=== PATIENT | female | born 1980 | race Caucasian/White ===

== ENCOUNTER → 2020-10-09 13:03 | Outpatient (BNVA) | payer MEDICARE, MEDICAID, SELFPAY | PROVIDERS: PCP Internal Medicine; Visit Provider Internal Medicine Gastroenterology | DX: D47.09 Other mast cell neoplasms of uncertain behavior (principal); R20.0 Anesthesia of skin; R13.10 Dysphagia, unspecified; R19.7 Diarrhea, unspecified; D49.0 Neoplasm of unspecified behavior of digestive system | CPT/HCPCS: Q3014 ==

== ENCOUNTER → 2021-02-11 10:12 | Outpatient (BNVA) | payer MEDICARE, MEDICAID, SELFPAY | PROVIDERS: PCP Internal Medicine; Visit Provider Internal Medicine Gastroenterology ==

== ENCOUNTER → 2021-09-22 11:58 | Outpatient (BNVA) | payer MEDICARE, MEDICAID, SELFPAY | PROVIDERS: PCP Internal Medicine; Visit Provider Internal Medicine Gastroenterology ==

== ENCOUNTER 2023-06-04 11:51 | Outpatient (AMB) | payer MEDICARE, MEDICAID, SELFPAY ==
--- NOTE | 2023-06-04 12:06 | MHC.OFFVIS ---
Intake Vital Signs 06/04/23 12:07 Height 5 ft 7 in Weight 187 lb BMI 29.3 BP 121/90 H Blood Pressure Location Lt brachial Position Sitting Pulse 77 Intake Visit Reasons: Flare Up Intake Note: Patient follow up for Flare up Patient cc: flare up, abdominal pain, acid reflex, daily diarrhea. Patient was admitted at the hospital. 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 Accompanied by: Self / Same As Patient Allergies droperidol Allergy (Severe, Verified 06/04/23 11:59) Confusion cefprozil [From CEFZIL] Allergy (Intermediate, Verified 06/04/23 11:59) HIVES escitalopram [From LEXAPRO] Allergy (Intermediate, Verified 06/04/23 11:59) UNKNOWN prochlorperazine [From COMPAZINE] Allergy (Intermediate, Verified 06/04/23 11:59) HIVES propranolol [PROPRANOLOL] Allergy (Intermediate, Verified 06/04/23 11:59) RASH sertraline [From ZOLOFT] Allergy (Intermediate, Verified 06/04/23 11:59) NAUSEA & VOMITING haloperidol [From Haldol] Allergy (Mild, Verified 06/04/23 11:59) suicidal metoclopramide [From REGLAN] Adverse Reaction (Intermediate, Verified 06/04/23 11:59) AGITATION phenelzine [From NARDIL] Adverse Reaction (Intermediate, Verified 06/04/23 11:59) NAUSEA & VOMITING HPI Flare Up HPI Details 42 y/o f w/ back pain, appendectomy, hysterectomy, Niessen fundoplication 2011, marilyn disease, cholecystectomy, depression, endometrioma being see for f/u RECAP:from prior notes and visits [facility] for multiple issues, please see my scanned notes in ecw EGD/colonoscopy10/2015- erosive gastritis, mild ileal inflammation MRCP: 11/2015- normal, small IPMN doppler u/s 11/2015- normal ERCP w/ sphincterotomy for possible SOD 07/2016 EGD/colonoscopy 2016- tubular adenoma, chemical gastritis, normal duodenum MRe: normal small bowel, ovarian remnant syndrome, she had raised urine prostaglandins u/s 01/2019- 9 mm CBD, liver cyst, nothing acute GES repeated- 02/2019- normal She had an admission to [place] 12/2019, with hematemesis and vomiting, diarrhea, covid neg, had EGD and colonoscopy--noted to have gastritis, colon looked nml Other admissions to [place] hospitals and [facility] this year, [facility] latest admission over the Summer INTERIM: she was just d/c ed from [facility] with nausea, vomiting, low K she had endoscopy with intestinal metapalsia? and she was told she needed gastric emptying she had low K and this was replenished she has constipation, last moved 10 days ago she is going to be seeing an EP speicalist for her heart she was unable to complete GES during her admission she has bad nausea, taking zofran, benadryl combo for nausea, which helps to some extent, she is also taking motegrity 2 mg she still gets hives, not taking cromolyn but still on singulair and famotidine EXAM: GENERAL: The patient is well developed and nontoxic. VITAL SIGNS:see workflow HEENT: Nonicteric sclerae, PERRLA, EOMI. Oropharynx clear. Moist mucous membranes. Conjunctivae appear well perfused. No thyroid mass. CHEST: Chest wall is nontender. HEART: Regular rate and rhythm without murmurs. LUNGS: Clear to auscultation bilaterally. ABDOMEN: Soft, positive bowel sounds, nontender, no organomegaly.no flank tenderness SKIN: No rash, no excessive bruising, petechiae, or purpura. NEUROLOGIC: Cranial nerves II-XII intact without motor/sensory deficit. Assessments 1. Non-intractable cyclical vomiting with nausea and diarrhea 2. Chronic GERD - 3. ?urticaria or nummular/discoid eczema 4. 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 PFSH Surgical History History of kidney surgery H/O colonoscopy H/O endoscopy Family History Mother HTN (hypertension) Heart disease Kidney disease Cancer Father HTN (hypertension) Maternal Grandfather Cancer Kidney disease Diabetes Liver disease Paternal Grandfather Cancer Paternal Grandmother Colon cancer Social History Household Members: Significant Other and Children Alcohol intake: current Alcohol intake frequency: holidays/special occasions only Cigarettes Per Day: 10 Assessment & Plan Assessment & Plan (1) Diarrhea: Code(s): R19.7 - Diarrhea, unspecified (2) Dysphagia: Code(s): R13.10 - Dysphagia, unspecified (3) Mast cell disorder: Code(s): D4. - Other mast cell neoplasms of uncertain behavior (4) Malnutrition: Code(s): E46 - Unspecified protein-calorie malnutrition Orders: Orders XR KUB Today D4. - Other mast cell neoplasms of uncertain behavior, E46 - Unspecified protein-calorie malnutrition, R13.10 - Dysphagia, unspecified, R19.7 - Diarrhea, unspecified Vitamin B12 and Folate Today D4. - Other mast cell neoplasms of uncertain behavior, E46 - Unspecified protein-calorie malnutrition, R13.10 - Dysphagia, unspecified, R19.7 - Diarrhea, unspecified Vitamin B3 (Niacin) Today D47. - Other mast cell neoplasms of uncertain behavior, E46 - Unspecified protein-calorie malnutrition, R13.10 - Dysphagia, unspecified, R19.7 - Diarrhea, unspecified Vitamin B5 (Pantothenic Acid) Today D47. - Other mast cell neoplasms of uncertain behavior, E46 - Unspecified protein-calorie malnutrition, R13.10 - Dysphagia, unspecified, R19.7 - Diarrhea, unspecified Vitamin B6 Today D47. - Other mast cell neoplasms of uncertain behavior, E46 - Unspecified protein-calorie malnutrition, R13.10 - Dysphagia, unspecified, R19.7 - Diarrhea, unspecified Vitamin C Today D47. - Other mast cell neoplasms of uncertain behavior, E46 - Unspecified protein-calorie malnutrition, R13.10 - Dysphagia, unspecified, R19.7 - Diarrhea, unspecified Vitamin D 25-OH Total Today D47. - Other mast cell neoplasms of uncertain behavior, E46 - Unspecified protein-calorie malnutrition, R13.10 - Dysphagia, unspecified, R19.7 - Diarrhea, unspecified Zinc Today D47. - Other mast cell neoplasms of uncertain behavior, E46 - Unspecified protein-calorie malnutrition, R13.10 - Dysphagia, unspecified, R19.7 - Diarrhea, unspecified Magnesium Today D47. - Other mast cell neoplasms of uncertain behavior, E46 - Unspecified protein-calorie malnutrition, R13.10 - Dysphagia, unspecified, R19.7 - Diarrhea, unspecified Ferritin Today . - Other mast cell neoplasms of uncertain behavior, E46 - Unspecified protein-calorie malnutrition, R13.10 - Dysphagia, unspecified, R19.7 - Diarrhea, unspecified Phosphorus Today . - Other mast cell neoplasms of uncertain behavior, E46 - Unspecified protein-calorie malnutrition, R13.10 - Dysphagia, unspecified, R19.7 - Diarrhea, unspecified Vitamin A Today - Other mast cell neoplasms of uncertain behavior, E46 - Unspecified protein-calorie malnutrition, R13.10 - Dysphagia, unspecified, R19.7 - Diarrhea, unspecified Vitamin B1 Today - Other mast cell neoplasms of uncertain behavior, E46 - Unspecified protein-calorie malnutrition, R13.10 - Dysphagia, unspecified, R19.7 - Diarrhea, unspecified Vitamin E Today - Other mast cell neoplasms of uncertain behavior, E46 - Unspecified protein-calorie malnutrition, R13.10 - Dysphagia, unspecified, R19.7 - Diarrhea, unspecified Vitamin K1 Today - Other mast cell neoplasms of uncertain behavior, E46 - Unspecified protein-calorie malnutrition, R13.10 - Dysphagia, unspecified, R19.7 - Diarrhea, unspecified Calcium, Ionized Today - Other mast cell neoplasms of uncertain behavior, E46 - Unspecified protein-calorie malnutrition, E83.52 - Hypercalcemia, R13.10 - Dysphagia, unspecified, R19.7 - Diarrhea, unspecified Complete Blood Count Auto Diff Today - Other mast cell neoplasms of uncertain behavior, E46 - Unspecified protein-calorie malnutrition, R13.10 - Dysphagia, unspecified, R19.7 - Diarrhea, unspecified Comprehensive Met. Panel Today - Other mast cell neoplasms of uncertain behavior, E46 - Unspecified protein-calorie malnutrition, K75.81 - Nonalcoholic steatohepatitis (RIVERA), R13.10 - Dysphagia, unspecified, R19.7 - Diarrhea, unspecified Creatine Kinase Total Today - Other mast cell neoplasms of uncertain behavior, E46 - Unspecified protein-calorie malnutrition, R13.10 - Dysphagia, unspecified, R19.7 - Diarrhea, unspecified Erythrocyte Sedimentation Rate Today D47.09 - Other mast cell neoplasms of uncertain behavior, E46 - Unspecified protein-calorie malnutrition, R13.10 - Dysphagia, unspecified, R19.7 - Diarrhea, unspecified Histamine Plasma Today D47.09 - Other mast cell neoplasms of uncertain behavior, E46 - Unspecified protein-calorie malnutrition, R13.10 - Dysphagia, unspecified, R19.7 - Diarrhea, unspecified Medications: New cromolyn 200 mg (10 mL) PO QID 30 days 1,200 mL 3RF Coding Level of Care Code Est Pt Level 3 (60555) Diagnoses Diarrhea R19.7 Dysphagia R13.10 Mast cell disorder D47.09 Malnutrition E46
[2023-06-04 12:07] VITALS: BP 121/90; PULSE 77; BMI 29.3
== END 2023-06-04 12:38 | disposition home or self-care (01) ==
PROVIDERS: PCP Internal Medicine; Visit Provider Internal Medicine Gastroenterology
DX: R19.7 Diarrhea, unspecified (principal); R13.10 Dysphagia, unspecified; D47.09 Other mast cell neoplasms of uncertain behavior; E46 Unspecified protein-calorie malnutrition
CPT/HCPCS: 99213

== ENCOUNTER 2023-06-04 11:51 | Outpatient (REF) | payer MEDICARE, MEDICAID, SELFPAY ==
[2023-06-04 13:20] LABS: MANUAL DIFF FLAG NO
[2023-06-04 13:46] LABS: Basophils Absolute Auto 0.1 X10*3/uL (0.0-0.2); Basophils Percent Auto 0.6 % (0-2); Eosinophils Absolute Auto 0.2 X10*3/uL (0.0-0.4); Eosinophils Percent Auto 1.6 % (0-4); Hematocrit 44.2 % (37.0-47.0); Hemoglobin 14.8 g/dl (12.0-16.0); Imm Gran Abs Auto 0.08 X10*3/uL (0.00-0.03); Imm Gran Pct Auto 0.7 % (0.0-0.4); Lymphocytes Percent Auto 26.2 % (20-40); Mean Corpuscular HGB Conc 33.5 g/dl (31.0-35.0); Mean Corpuscular Hemoglobin 30.4 pg (27.0-33.0); Mean Corpuscular Volume 90.8 fL (80.0-98.0); Mean Platelet Volume 10.2 fL (9.4-12.3); Monocytes Absolute Auto 0.8 X10*3/uL (0.1-1.2); Monocytes Percent Auto 6.9 % (2-11); Neutrophils Absolute Auto 7.3 x10*3/uL (2.0-8.3); Platelet Count 365 X10*3/uL (160-400); Red Blood Count 4.87 X10*6/uL (4.20-5.50); Red Cell Distribution Width 14.4 % (11.0-16.0); White Blood Count 11.4 X10*3/uL (4.8-10.8)
[2023-06-04 14:26] LABS: Erythrocyte Sedimentation Rate 8 MM/HR (0-20)
[2023-06-04 14:52] LABS: Vitamin B12 580 pg/mL (200-900)
[2023-06-04 15:32] LABS: Alanine Aminotransferase 26 U/L (0-31); Albumin Level 4.3 g/dL (3.5-5.0); Alkaline Phosphatase 108 U/L (39-117); Anion Gap 12 (12-20); Aspartate Amino Transferase 17 U/L (5-31); Bilirubin Total 0.4 mg/dL (0.0-1.0); Blood Urea Nitrogen 14 mg/dL (9-16); Calcium 9.7 mg/dL (8.4-10.2); Carbon Dioxide 22 mmol/L (22-29); Chloride 110 mmol/L (96-108); Estimated Glomerular Filt Rate > 60; Glucose Random 91 mg/dL (60-115); Magnesium 2.3 mg/dL (1.6-2.6); Potassium 4.5 mmol/L (3.3-5.1); Sodium 139 mmol/L (135-145); Total Protein 7.4 g/dL (6.5-8.0)
[2023-06-04 15:38] LABS: Ferritin 58 ng/mL (10-250); Vitamin D 25-OH Total 33.3 ng/mL (>30)
[2023-06-06 23:28] LABS: Calcium, Ionized 5.4 mg/dL (4.7-5.5)
[2023-06-08 14:09] LABS: Zinc 71 mcg/dL (60-130)
[2023-06-09 21:08] LABS: Vitamin K1 187 pg/mL (130-1500)
[2023-06-09 21:13] LABS: Beta-Gamma Tocopherol 1.2 mg/L (<=4.3)
[2023-06-10 13:38] LABS: Vitamin B6 8.6 ng/mL (2.1-21.7)
[2023-06-10 16:28] LABS: Histamine Plasma <1.5 ng/mL (< OR = 1.8)
[2023-06-10 18:44] LABS: Vitamin A 66 mcg/dL (38-98)
[2023-06-11 19:33] LABS: Vitamin C 0.1 mg/dL (0.3-2.7)
[2023-06-12 15:18] LABS: Vitamin B1 13 nmol/L (8-30)
[2023-06-13 23:59] LABS: Nicotinamide 21 ng/mL; Vit B3 - Nicotinic Acid <20 ng/mL; Vitamin B5 (Pantothenic Acid) <40 ng/mL (<275)
== END 2023-06-04 11:52 | disposition home or self-care (01) ==
LOC: HO.LAB 11:51
PROVIDERS: PCP Internal Medicine; Visit Provider Internal Medicine Gastroenterology
DX: E83.52 Hypercalcemia (principal); K75.81 Nonalcoholic steatohepatitis (NASH); K21.9 Gastro-esophageal reflux disease without esophagitis; R19.7 Diarrhea, unspecified; R10.9 Unspecified abdominal pain; R13.10 Dysphagia, unspecified; D47.09 Other mast cell neoplasms of uncertain behavior; E46 Unspecified protein-calorie malnutrition
CPT/HCPCS: 36415; 80053; 82180; 82306; 82330; 82550; 82607; 82728; 82746; 83088; 83735; 84100; 84207; 84425; 84446; 84590; 84591; 84597; 84630; 85025; 85652; 99212

== ENCOUNTER 2023-07-26 10:44 | Outpatient (AMB) | payer MEDICARE, MEDICAID, SELFPAY ==
--- NOTE | 2023-07-26 10:49 | A.OFFVIS_ITS ---
Intake Vital Signs 07/26/23 10:51 Height 5 ft 7 in Weight 218 lb BMI 34.1 BP 115/66 Blood Pressure Location Lt brachial Position Sitting Pulse 68 Intake Visit Reasons: 8 week follow up Intake Note: Mary Alice presents as a 8 week follow up. CC: She states that her hair is coming out in clumps and she is unsure why she has gained weight. She was 187 now she is 218. Her stools are pale and she does not have many BMs. either she has constipation or diarrhea. Science Liaison Required: No Allergies droperidol Allergy (Severe, Verified 07/26/23 10:52) Confusion cefprozil [From CEFZIL] Allergy (Intermediate, Verified 07/26/23 10:52) HIVES escitalopram [From LEXAPRO] Allergy (Intermediate, Verified 07/26/23 10:52) UNKNOWN prochlorperazine [From COMPAZINE] Allergy (Intermediate, Verified 07/26/23 10:52) HIVES propranolol [PROPRANOLOL] Allergy (Intermediate, Verified 07/26/23 10:52) RASH sertraline [From ZOLOFT] Allergy (Intermediate, Verified 07/26/23 10:52) NAUSEA & VOMITING haloperidol [From Haldol] Allergy (Mild, Verified 07/26/23 10:52) suicidal metoclopramide [From REGLAN] Adverse Reaction (Intermediate, Verified 07/26/23 10:52) AGITATION phenelzine [From NARDIL] Adverse Reaction (Intermediate, Verified 07/26/23 10:52) NAUSEA & VOMITING HPI 8 week follow up HPI Details 42 y/o f w/ back pain, appendectomy, hys terectomy, Niessen fundoplication 2011, marilyn disease, cholecystectomy, depression, endometrioma being see for f/u RECAP:from prior notes and visits [facility] for multiple issues, please see my scanned notes in ecw EGD/colonoscopy10/2015- erosive gastritis, mild ileal inflammation MRCP: 11/2015- normal, small IPMN doppler u/s 11/2015- normal ERCP w/ sphincterotomy for possible SOD 07/2016 EGD/colonoscopy 2017- tubular adenoma, chemical gastritis, normal duodenum MRe: normal small bowel, ovarian remnant syndrome, she had raised urine prostaglandins u/s 01/2019- 9 mm CBD, liver cyst, nothing acute GES repeated- 02/2019- normal She had an admission to [place] 12/2019, with hematemesis and vomiting, diarrhea, covid neg, had EGD and colonoscopy--noted to have gastritis, colon looked nml Other admissions to [facility] and [facility] this year, [facility] latest admission over the Summer she was d/c ed from [facility] with nausea, vomiting, low K she is going to be seeing an EP speicalist for her heart she was unable to complete GES during her admission INTERIM: She has increased weight gain 30# since 05/2023 she has pain LUQ and also some discomfort lower abdominal area--just there, no obvious triggers or helpers of the pain stool can be diarrheal and pale at times, formed at others saw blood mixed with stool and also on wiping, dark red taking zofran, benadryl combo for nausea, which helps to some extent, she is also taking motegrity 2 mg, singulair and famotidine she had poor prep colo 2019-- she had CT scan at [place] 1 month ago and was normal in abdomen GERD has been bad inspite of PPI EXAM: GENERAL: The patient is well developed and nontoxic. VITAL SIGNS:see workflow HEENT: Nonicteric sclerae, PERRLA, EOMI. Oropharynx clear. Moist mucous membranes. Conjunctivae appear well perfused. No thyroid mass. CHEST: Chest wall is nontender. HEART: Regular rate and rhythm without murmurs. LUNGS: Clear to auscultation bilaterally. ABDOMEN: Soft, positive bowel sounds, tender luq and lower abdomen, no organomegaly.no flank tenderness SKIN: No rash, no excessive bruising, petechiae, or purpura. NEUROLOGIC: Cranial nerves II-XII intact without motor/sensory deficit. Assessments 1. Chronic GERD - 2. IPMN 3. undifferentiated abdominal pain, mult iple scans and tests in the past, Plan: 1/ KUB 2/ EGD, and colo--sutab 3/ still need old records, moo path and EGD reports, inpatient 4/ to touch base with her endocrinologis t re: weight gain and hair loss PFSH Surgical History History of kidney surgery H/O colonoscopy H/O endoscopy Family History Mother HTN (hypertension) Heart disease Kidney disease Cancer Father HTN (hypertension) Maternal Grandfather Cancer Kidney disease Diabetes Liver disease Paternal Grandfather Cancer Paternal Grandmother Colon cancer Social History Household Members: Significant Other and Children Alcohol intake: current Alcohol intake frequency: holidays/special occasions only Cigarettes Per Day: 10 Physical Exam Vital Signs: Last Vital Signs Pulse 68 07/26/23 10:51 BP 115/66 07/26/23 10:51 BMI result Body Mass Index 34.1 Assessment & Plan Assessment & Plan (1) Altered bowel habits: Code(s): R19.4 - Change in bowel habit Orders: Orders XR KUB Today R19.4 - Change in bowel habit Medications: New sod sulf-pot chloride-mag sulf 1.479-0.188- 0.225 gram (Sutab) PO PER PKG DIR 24 tabs 0RF Coding Level of Care Code Est Pt Level 4 (96137) Diagnoses Altered bowel habits R19.4
[2023-07-26 10:51] VITALS: BP 115/66; PULSE 68; BMI 34.1
== END 2023-07-26 12:26 | disposition home or self-care (01) ==
PROVIDERS: PCP Internal Medicine; Visit Provider Internal Medicine Gastroenterology
DX: R19.4 Change in bowel habit (principal)
CPT/HCPCS: 99214

== ENCOUNTER 2023-07-26 10:44 | Outpatient (REF) | payer MEDICARE, MEDICAID, SELFPAY ==
--- NOTE | ~2023-07-26 | XR_ITS ---
EXAMINATION: XR ABDOMEN KUB CLINICAL INDICATION: Change in bowel habit. COMPARISON: None available. TECHNIQUE: 3 views AP of the abdomen. FINDINGS: Nonobstructive bowel gas pattern. Moderate amount of stool in the colon. Surgical clips in the right upper quadrant and lower abdomen. Mild rightward curvature of the lumbar spine. A rounded 5 mm calculus-calcification projects over the upper aspect of the sacrum on the right. Multiple small pelvic calcifications are likely phleboliths. Transitional anatomy present. XR/XR KUB IMPRESSION: 1. Nonobstructive bowel gas pattern. Moderate amount of stool in the colon. 2. A rounded 5 mm calculus-calcification projects over the upper aspect of the sacrum on the right.
[2023-07-26 14:13] LABS: Alanine Aminotransferase 18 U/L (0-31); Albumin Level 4.1 g/dL (3.5-5.0); Alkaline Phosphatase 115 U/L (39-117); Anion Gap 12 (12-20); Aspartate Amino Transferase 18 U/L (5-31); Bilirubin Total 0.5 mg/dL (0.0-1.0); Blood Urea Nitrogen 13 mg/dL (9-16); Calcium 9.1 mg/dL (8.4-10.2); Carbon Dioxide 21 mmol/L (22-29); Chloride 111 mmol/L (96-108); Estimated Glomerular Filt Rate > 60; Glucose Random 96 mg/dL (60-115); Magnesium 2.2 mg/dL (1.6-2.6); Potassium 3.9 mmol/L (3.3-5.1); Sodium 140 mmol/L (135-145)
== END 2023-07-26 10:45 | disposition home or self-care (01) ==
LOC: HO.LAB 10:44
PROVIDERS: PCP Internal Medicine; Visit Provider Internal Medicine Gastroenterology
DX: R19.4 Change in bowel habit (principal); K75.81 Nonalcoholic steatohepatitis (NASH); E46 Unspecified protein-calorie malnutrition
CPT/HCPCS: 36415; 74018; 80053; 82180; 83735; 99212

== ENCOUNTER 2023-12-06 13:22 | Outpatient (AMB) | payer MEDICARE, MEDICAID, SELFPAY ==
--- NOTE | 2023-12-06 13:23 | MHC.OFFVIS ---
Intake Intake Visit Reasons: following up was in house [facility] Intake Note: Mary Alice presents as a video follow up her [facility] ED stay. CC: Allergies droperidol Allergy (Severe, Verified 12/06/23 13:24) Confusion cefprozil [From CEFZIL] Allergy (Intermediate, Verified 12/06/23 13:24) HIVES escitalopram [From LEXAPRO] Allergy (Intermediate, Verified 12/06/23 13:24) UNKNOWN prochlorperazine [From COMPAZINE] Allergy (Intermediate, Verified 12/06/23 13:24) HIVES propranolol [PROPRANOLOL] Allergy (Intermediate, Verified 12/06/23 13:24) RASH sertraline [From ZOLOFT] Allergy (Intermediate, Verified 12/06/23 13:24) NAUSEA & VOMITING haloperidol [From Haldol] Allergy (Mild, Verified 12/06/23 13:24) suicidal metoclopramide [From REGLAN] Adverse Reaction (Intermediate, Verified 12/06/23 13:24) AGITATION phenelzine [From NARDIL] Adverse Reaction (Intermediate, Verified 12/06/23 13:24) NAUSEA & VOMITING HPI following up was in house [facility] HPI Details 43 y/o f w/ back pain, appendectomy, hysterectomy, Niessen fundoplication 2011, marilyn disease, cholecystectomy, depression, endometrioma called for f/u RECAP:from prior notes and visits [facility] for multiple issues, please see my scanned notes in ecw EGD/colonoscopy10/2015- erosive gastritis, mild ileal inflammation MRCP: 11/2015- normal, small IPMN doppler u/s 11/2015- normal ERCP w/ sphincterotomy for possible SOD 07/2016 EGD/colonoscopy 2017- tubular adenoma, chemical gastritis, normal duodenum MRe: normal small bowel, ovarian remnant syndrome, she had raised urine prostaglandins u/s 01/2019- 9 mm CBD, liver cyst, nothing acute GES repeated- 02/2019- normal She had an admission to [place] 12/2019, with hematemesis and vomiting, diarrhea, covid neg, had EGD and colonoscopy--noted to have gastritis, colon looked nml Other admissions to [facility] and [facility] this year, [facility] latest admission over the Summer she was d/c ed from [facility] with nausea, vomiting, low K she is going to be seeing an EP speicalist for her heart she was unable to complete GES during her admission She had recent admission to [facility] for constipation, strep bactermia--ECHO was negative for vegetations INTERIM: she still feels nauseated she has constipation she had an enema with some brown returns she has also noted ongoing heartburn she is taking protonix 40 mg bid, and pepcid at night she has lactulose but it doesn't work taking zofran q6 h with some response she felt better with motegrity in the past she had upper GI series at [facility] -esophageal dysmotility-pooling of contrast at wrap EXAM: GENERAL: The patient is well developed and nontoxic. Assessments 1. Chronic GERD - might be worse due to tight wrap and fibrosis 2. IPMN 3. constipation Plan: 1/ KUB 2/ EGD, and colo--sutab--pending this soon 3/ add back motegrity 2 mg--advised to contact and stop med if and depression or suicidal thoughts 4/ EKG to check QTc interval [facility] Medical History (Updated 10/19/23 @ 08:18 by Quita Marc, RN) Hendry's disease Esophagitis COVID-19 Obesity Lupus Mast cell disease History of psychiatric disorder SVT (supraventricular tachycardia) Pancreatitis Kidney stones Elevated cholesterol HTN (hypertension) Peptic ulcer DVT (deep venous thrombosis) Anxiety Back pain Myocardial infarction CAD (coronary artery disease) Asthma Anemia Sick sinus syndrome Depression GERD (gastroesophageal reflux disease) Sphincter of Oddi dysfunction Chronic idiopathic constipation Chronic nausea Secondary adrenal insufficiency Surgical History (Updated 10/19/23 @ 07:48 by Quita Marc RN) S/P hysterectomy Hx of cholecystectomy Hx of appendectomy S/P implantation of automatic cardioverter/defibrillator (AICD) S/P placement of cardiac pacemaker Status post [place] fundoplication History of sphincterotomy of sphincter of Oddi History of kidney surgery H/O colonoscopy H/O endoscopy Family History Mother HTN (hypertension) Heart disease Kidney disease Cancer Father HTN (hypertension) Maternal Grandfather Cancer Kidney disease Diabetes Liver disease Paternal Grandfather Cancer Paternal Grandmother Colon cancer Social History Household Members: Significant Other and Children Alcohol intake: current Alcohol intake frequency: holidays/special occasions only Cigarettes Per Day: 10 Assessment & Plan Assessment & Plan (1) Altered bowel habits: Code(s): R19.4 - Change in bowel habit Plan: Plan: 1/ KUB 2/ EGD, and colo--sutab--pending this soon 3/ add back motegrity 2 mg--advised to contact and stop med if and depression or suicidal thoughts 4/ EKG to check QTc interval (2) Dysphagia: Code(s): R13.10 - Dysphagia, unspecified Plan: Plan: 1/ KUB 2/ EGD, and colo--sutab--pending this soon 3/ add back motegrity 2 mg--advised to contact and stop med if and depression or suicidal thoughts 4/ EKG to check QTc interval Orders: Orders XR KUB Today R13.10 - Dysphagia, unspecified, R19.4 - Change in bowel habit ECG 12 lead EKG Today R13.10 - Dysphagia, unspecified, R19.4 - Change in bowel habit Medications: New prucalopride (Motegrity) 2 mg PO DAILY 30 tabs 2RF Refilled diphenhydramine HCl (Benadryl) 50 mg (2 x 25 mg) PO TID PRN 90 caps 1RF itching famotidine (Pepcid) 20 mg PO BID 90 tabs 2RF pantoprazole 40 mg PO BID 90 tabs 3RF ondansetron 8 mg PO Q12H 30 days PRN 60 tabs 3RF nausea and vomiting Telehealth Telehealth Location of provider rendering services: practice address Location of patient: address on file Patient Identification confirmed using: Name, : Yes Telehealth method: video Patient verbally consented to treatment: Yes Patient verbally consented to billing insurance company: Yes Patient informed of any privacy concerns related to visit: Yes Minutes spent on Phone/Video with Pt.: 9 Coding Level of Care Code Tele Est Pt Level 3 (21274) Diagnoses Altered bowel habits R19.4 Dysphagia R13.10
== END 2023-12-06 14:25 | disposition home or self-care (01) ==
LOC: HO.HGI 13:22
PROVIDERS: PCP Internal Medicine; Visit Provider Internal Medicine Gastroenterology
DX: R19.4 Change in bowel habit (principal); R13.10 Dysphagia, unspecified
CPT/HCPCS: 99213

== ENCOUNTER → 2023-12-06 13:22 | Outpatient (BNVA) | payer MEDICARE, MEDICAID, SELFPAY | PROVIDERS: PCP Internal Medicine; Visit Provider Internal Medicine Gastroenterology ==

== ENCOUNTER → 2024-01-18 14:17 | Outpatient (BNV) | payer MEDICARE, MEDICAID, SELFPAY | PROVIDERS: PCP Internal Medicine; Visit Provider Internal Medicine | DX: R94.31 Abnormal electrocardiogram [ECG] [EKG] (principal) | CPT/HCPCS: 93010 ==

== ENCOUNTER 2024-01-27 11:19 | Day surgery (SDC) | payer MEDICARE, MEDICAID, SELFPAY ==
--- NOTE | 2024-01-18 | ECG_ITS ---
Test Reason : preop Blood Pressure : / mmHG Vent. Rate : 060 BPM Atrial Rate : 060 BPM P-R Int : 164 ms QRS Dur : 086 ms QT Int : 452 ms P-R-T Axes : 037 036 039 degrees QTc Int : 452 ms A paced rhythm Abnormal ECG No previous ECGs available Referred By: Adrienne Jackson Electronically Signed By:ALFONSO JUAREZ
[2024-01-18 13:06] VITALS: BMI 34.8
[2024-01-18 13:13] VITALS: BP 125/63; PULSE 68; RESP 16; O2SAT 97
--- NOTE | 2024-01-18 13:16 | P.CONAN_ITS ---
Documented by User: Adrienne Jackson NP 01/20/24 09:13 HPI - Anesthesia Eval Consult details Narrative: 43yo F for Upper Endoscopy and Colonoscopy Middle Chest piercing does not remove Difficult IV start - needs to arrive early for possible US insertion with anesthesia Rescheduled from 09/2023 d/t hospitalization for bacteremia. Unknown source. [facility] admit for 2 months. Tx'd with 5 weeks IV abx. Medically cleared by PCP prior to hospitalization. No f/u with any providers since discharge in November No recent sick feeling States increased fluid retention with weight gain Uncontrolled GERD on ppi and H2. Discussed increased risk of aspiration. Complex medical hx: Mahendra's ds - hydrocortisone inj. Needs steroid stress dose. 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 Last office visit 12/2022: Per office visit note, nml cardiac cath 11/2022. Chest pain likely r/t coronary vasospasm. Isosorbide increased. Resolved Pacer in situ (SSS) - implanted 2014. Last interrogation 07/2023 on chart. Case discussed with Dr Man [facility] Active Problems Active Problems: All Active Problems Altered bowel habits (Acute) Malnutrition (Acute) IPMN (intraductal papillary mucinous neoplasm) (Acute) Diarrhea (Acute) Facial numbness (Acute) Dysphagia (Acute) Mast cell disorder (Acute) Past Medical History Medical History (Updated 01/18/24 @ 13:40 by Rosalinda Collins, RN) Hx MRSA infection Umbilical hernia Gastritis Gastroparesis Pernicious anemia Hx of bacteremia (~11/2023) SOB (shortness of breath) Chest pain MDD (major depressive disorder) Cardiac pacemaker Allyssa's syndrome Renal calculi PTSD (post-traumatic stress disorder) Ocular migraine Mahendra's disease Esophagitis COVID-19 Obesity Lupus Mast cell disease History of psychiatric disorder SVT (supraventricular tachycardia) Pancreatitis Kidney stones Elevated cholesterol HTN (hypertension) Peptic ulcer DVT (deep venous thrombosis) Anxiety Back pain Myocardial infarction CAD (coronary artery disease) Asthma Anemia Sick sinus syndrome Depression GERD (gastroesophageal reflux disease) Sphincter of Oddi dysfunction Chronic idiopathic constipation Chronic nausea Secondary adrenal insufficiency Family History Family History Mother HTN (hypertension) Heart disease Kidney disease Cancer Father HTN (hypertension) Maternal Grandfather Cancer Kidney disease Diabetes Liver disease Paternal Grandfather Cancer Paternal Grandmother Colon cancer Surgical History Surgical History (Updated 01/18/24 @ 16:11 by Rosalinda Collins RN) History of cardiac cath Hx of exploratory laparotomy H/O unilateral oophorectomy History of ankle surgery Hx of tonsillectomy History of back surgery (~2007) S/P hysterectomy Hx of cholecystectomy Hx of appendectomy S/P placement of cardiac pacemaker Status post Jimena fundoplication History of sphincterotomy of sphincter of Oddi History of kidney surgery H/O colonoscopy H/O endoscopy Social History Social History (Updated 01/18/24 @ 13:36 by Rosalinda Collins RN) Household Members: Significant Other and Children Are you a primary childcare teacher to a significant other at home: No Do you presently have visiting nurse or other home services: No Alcohol intake: current Alcohol intake frequency: holidays/special occasions only Patient Tobacco Use Status: Former Tobacco user Quit Date: 08/2022 Tobacco use type: Cigarette Cigarettes Per Day: 10 e-Cigarette/Vaping Use: Currently Using Frequency of e-Cigarette/Vaping Use: with nicotine, occasional use Use of substances other than those prescribed or required for medical reasons: No Have you been hit, kicked, punched, or otherwise hurt by someone within the past year? If so, by whom?: No Are you DNR?: No Advance Directives: No Advance Directives Information Provided: Yes Advance Directives on File: No Recently lost weight without trying: No Patient : No FDLMP: Hx hysterectomy 2017 : No Poor oral hygiene: No Meds Allergies Allergy/AdvReac Type Severity Reaction Status Date / Time droperidol Allergy Severe Confusion, Verified 01/18/24 13:04 twitching haloperidol [From Haldol] Allergy Severe suicidal Verified 01/18/24 13:04 prochlorperazine Allergy Severe HIVES, Verified 01/18/24 13:04 [From COMPAZINE] panic attack propranolol [PROPRANOLOL] Allergy Severe RASH Verified 01/18/24 13:04 rivaroxaban [From Xarelto] Allergy Severe Hives, Verified 01/18/24 13:05 rash, N/V cefprozil [From CEFZIL] Allergy Intermediate HIVES Verified 12/06/23 13:24 escitalopram [From LEXAPRO] Allergy Intermediate N/V, Verified 01/18/24 13:04 palpatatuions sertraline [From ZOLOFT] Allergy Intermediate NAUSEA & Verified 01/18/24 13:04 VOMITING, palpatations metoclopramide [From REGLAN] AdvReac Severe AGITATION, Verified 01/18/24 13:04 N/V, palpatations phenelzine [From NARDIL] AdvReac Severe NAUSEA & Verified 01/18/24 13:04 VOMITING, rash, worsening headache Home Medications ?Medication ?Instructions ?Recorded ?Confirmed ?Last Taken ?Type alcohol swabs pad topical 02/11/21 Unknown History clonazepam 1 mg tablet 1 mg PO BID 02/11/21 01/18/24 Unknown History fluconazole 150 mg tablet 150 mg PO DAILY 02/11/21 01/18/24 Unknown History hydrocortisone sod succ (PF) 100 mg IM 02/11/21 Unknown History mg/2 mL solution for injection insulin syringe-needle U-100 1 mL #10 ea 02/11/21 Unknown History 31 gauge x 5/16 lidocaine HCl 2 % mucosal solution PO PRN Mouth Irritation 02/11/21 Unknown History nitroglycerin 0.4 mg sublingual 0.4 mg sublingual DIRECTED PRN 02/11/21 01/18/24 Unknown History tablet Chest Pain potassium chloride 20 mEq 20 meq PO DAILY PRN Cramps 02/11/21 01/18/24 Unknown History tablet,extended release(part/cryst) rosuvastatin 40 mg tablet 40 mg PO BEDTIME 02/11/21 01/18/24 Unknown History spironolactone 25 mg tablet 25 mg PO DAILY 02/11/21 01/18/24 Unknown History acetaminophen 500 mg capsule 500 mg PO QID PRN Pain 06/04/23 01/18/24 Unknown History amlodipine 5 mg tablet 5 mg PO DAILY 06/04/23 01/18/24 Unknown History aspirin 81 mg chewable tablet 1 tab PO DAILY 06/04/23 01/18/24 Unknown History melatonin 12 mg tablet 12 mg PO BEDTIME 06/04/23 01/18/24 Unknown History metoprolol tartrate 100 mg tablet 100 mg PO BID 06/04/23 01/18/24 Unknown History sennosides 8.6 mg tablet (Natural 8.6 mg PO BEDTIME 06/04/23 01/18/24 Unknown History Senna Laxative) fluoxetine 20 mg capsule 40 mg PO DAILY 07/26/23 01/18/24 Unknown History gabapentin 300 mg capsule 600 mg PO TID 07/26/23 01/18/24 Unknown History isosorbide mononitrate 30 mg 30 mg PO BID 07/26/23 01/18/24 Unknown History tablet,extended release 24 hr prazosin 2 mg capsule 4 mg PO BEDTIME 07/26/23 01/18/24 Unknown History trazodone 150 mg tablet 300 mg PO BEDTIME 07/26/23 01/18/24 Unknown History bupropion HCl 100 mg tablet,12 hr 100 mg PO DAILY 12/06/23 01/18/24 Unknown History sustained-release clonazepam 0.5 mg tablet 0.5 mg PO .QAFTERNOON 12/06/23 01/18/24 Unknown History docusate sodium 100 mg capsule 100 mg PO TID 12/06/23 01/18/24 Unknown History Flexeril 10 mg PO TID PRN Muscle Spasm 01/18/24 01/18/24 Unknown History Exam Height,Weight and Vital Signs: Height 5 ft 7 in Weight 100.9 kg Pertinent Lab Results Pertinent Lab Results: Lab Results 01/18/24 Range/Units 14:13 WBC 11.4 H (4.8-10.8) X10*3/uL RBC 4.30 (4.20-5.50) X10*6/uL Hgb 12.2 (12.0-16.0) g/dl Hct 36.9 L (37.0-47.0) % MCV 85.8 (80.0-98.0) fL MCH 28.4 (27.0-33.0) pg MCHC 33.1 (31.0-35.0) g/dl RDW 14.6 (11.0-16.0) % Plt Count 345 (160-400) X10*3/uL MPV 10.6 (9.4-12.3) fL Absolute Nucleated RBC 0.000 (0.0-0.012) X10*3/uL Nucleated RBC % (auto) 0.0 (0.0-0.2) /100WBC Sodium 141 (135-145) mmol/L Potassium 3.7 (3.3-5.1) mmol/L Chloride 110 H (96-108) mmol/L Carbon Dioxide 22 (22-29) mmol/L Anion Gap 13 (12-20) BUN 19 H (9-16) mg/dL Creatinine 0.70 (0.5-1.4) mg/dL Estim Creat Clear Calc 126.5 Estimated GFR > 60 Random Glucose 95 (60-115) mg/dL Calcium 9.7 D (8.4-10.2) mg/dL B-Natriuretic Peptide 22 (<100) pg/mL Narrative Narrative: EKG 12/2023 Vent. Rate : 060 BPM Atrial Rate : 060 BPM P-R Int : 164 ms QRS Dur : 086 ms QT Int : 452 ms P-R-T Axes : 037 036 039 degrees QTc Int : 452 ms A paced rhythm Abnormal ECG No previous ECGs available Pacer interrogation 07/2023 on chart ECHO 11/2023 Nml LV size and function with EF 55-60%. No WMA Nml RV size and function No signif valve disease Airway Mallampati Class: III TM Dist: >3cm Neck ROM: Full Loose/Missing/Broken Teeth: Yes (missing on sides and back) Heart: RRR Lungs: CTAB Assessment and Plan Assessment Anesthesia Assessment: Anesthesia Plan Discussed and PAT Visit Documented by User: Norris Gallagher MD 01/27/24 12:08 [facility] Past Medical History Medical History (Updated 01/18/24 @ 13:40 by Rosalinda Collins, DONNA) Hx MRSA infection Umbilical hernia Gastritis Gastroparesis Pernicious anemia Hx of bacteremia (~11/2023) SOB (shortness of breath) Chest pain MDD (major depressive disorder) Cardiac pacemaker Allyssa's syndrome Renal calculi PTSD (post-traumatic stress disorder) Ocular migraine Mahendra's disease Esophagitis COVID-19 Obesity Lupus Mast cell disease History of psychiatric disorder SVT (supraventricular tachycardia) Pancreatitis Kidney stones Elevated cholesterol HTN (hypertension) Peptic ulcer DVT (deep venous thrombosis) Anxiety Back pain Myocardial infarction CAD (coronary artery disease) Asthma Anemia Sick sinus syndrome Depression GERD (gastroesophageal reflux disease) Sphincter of Oddi dysfunction Chronic idiopathic constipation Chronic nausea Secondary adrenal insufficiency Family History Family History Mother HTN (hypertension) Heart disease Kidney disease Cancer Father HTN (hypertension) Maternal Grandfather Cancer Kidney disease Diabetes Liver disease Paternal Grandfather Cancer Paternal Grandmother Colon cancer Family history of problems with anesthesia: No Surgical History Surgical History (Updated 01/18/24 @ 16:11 by Rosalinda Collins RN) History of cardiac cath Hx of exploratory laparotomy H/O unilateral oophorectomy History of ankle surgery Hx of tonsillectomy History of back surgery (~2007) S/P hysterectomy Hx of cholecystectomy Hx of appendectomy S/P placement of cardiac pacemaker Status post Jimena fundoplication History of sphincterotomy of sphincter of Oddi History of kidney surgery H/O colonoscopy H/O endoscopy History of Problems with Anesthesia: No Social History Social History (Updated 01/18/24 @ 13:36 by Rosalinda Collins RN) Household Members: Significant Other and Children Are you a primary childcare teacher to a significant other at home: No Do you presently have visiting nurse or other home services: No Alcohol intake: current Alcohol intake frequency: holidays/special occasions only Patient Tobacco Use Status: Former Tobacco user Quit Date: 08/2022 Tobacco use type: Cigarette Cigarettes Per Day: 10 e-Cigarette/Vaping Use: Currently Using Frequency of e-Cigarette/Vaping Use: with nicotine, occasional use Use of substances other than those prescribed or required for medical reasons: No Have you been hit, kicked, punched, or otherwise hurt by someone within the past year? If so, by whom?: No Are you DNR?: No Advance Directives: No Advance Directives Information Provided: Yes Advance Directives on File: No Recently lost weight without trying: No Patient : No FDLMP: Hx hysterectomy 2017 : No Poor oral hygiene: No Meds Allergies Allergy/AdvReac Type Severity Reaction Status Date / Time droperidol Allergy Severe Confusion, Verified 01/18/24 13:04 twitching haloperidol [From Haldol] Allergy Severe suicidal Verified 01/18/24 13:04 prochlorperazine Allergy Severe HIVES, Verified 01/18/24 13:04 [From COMPAZINE] panic attack propranolol [PROPRANOLOL] Allergy Severe RASH Verified 01/18/24 13:04 rivaroxaban [From Xarelto] Allergy Severe Hives, Verified 01/18/24 13:05 rash, N/V cefprozil [From CEFZIL] Allergy Intermediate HIVES Verified 12/06/23 13:24 escitalopram [From LEXAPRO] Allergy Intermediate N/V, Verified 01/18/24 13:04 palpatatuions sertraline [From ZOLOFT] Allergy Intermediate NAUSEA & Verified 01/18/24 13:04 VOMITING, palpatations metoclopramide [From REGLAN] AdvReac Severe AGITATION, Verified 01/18/24 13:04 N/V, palpatations phenelzine [From NARDIL] AdvReac Severe NAUSEA & Verified 01/18/24 13:04 VOMITING, rash, worsening headache Home Medications ?Medication ?Instructions ?Recorded ?Confirmed ?Last Taken ?Type alcohol swabs pad topical 02/11/21 Unknown History clonazepam 1 mg tablet 1 mg PO BID 02/11/21 01/18/24 Unknown History fluconazole 150 mg tablet 150 mg PO DAILY 02/11/21 01/18/24 Unknown History hydrocortisone sod succ (PF) 100 mg IM 02/11/21 Unknown History mg/2 mL solution for injection insulin syringe-needle U-100 1 mL #10 ea 02/11/21 Unknown History 31 gauge x 5/16 lidocaine HCl 2 % mucosal solution PO PRN Mouth Irritation 02/11/21 Unknown History nitroglycerin 0.4 mg sublingual 0.4 mg sublingual DIRECTED PRN 02/11/21 01/18/24 Unknown History tablet Chest Pain potassium chloride 20 mEq 20 meq PO DAILY PRN Cramps 02/11/21 01/18/24 Unknown History tablet,extended release(part/cryst) rosuvastatin 40 mg tablet 40 mg PO BEDTIME 02/11/21 01/18/24 Unknown History spironolactone 25 mg tablet 25 mg PO DAILY 02/11/21 01/18/24 Unknown History acetaminophen 500 mg capsule 500 mg PO QID PRN Pain 06/04/23 01/18/24 Unknown History amlodipine 5 mg tablet 5 mg PO DAILY 06/04/23 01/18/24 Unknown History aspirin 81 mg chewable tablet 1 tab PO DAILY 06/04/23 01/18/24 Unknown History melatonin 12 mg tablet 12 mg PO BEDTIME 06/04/23 01/18/24 Unknown History metoprolol tartrate 100 mg tablet 100 mg PO BID 06/04/23 01/18/24 Unknown History sennosides 8.6 mg tablet (Natural 8.6 mg PO BEDTIME 06/04/23 01/18/24 Unknown History Senna Laxative) fluoxetine 20 mg capsule 40 mg PO DAILY 07/26/23 01/18/24 Unknown History gabapentin 300 mg capsule 600 mg PO TID 07/26/23 01/18/24 Unknown History isosorbide mononitrate 30 mg 30 mg PO BID 07/26/23 01/18/24 Unknown History tablet,extended release 24 hr prazosin 2 mg capsule 4 mg PO BEDTIME 07/26/23 01/18/24 Unknown History trazodone 150 mg tablet 300 mg PO BEDTIME 07/26/23 01/18/24 Unknown History bupropion HCl 100 mg tablet,12 hr 100 mg PO DAILY 12/06/23 01/18/24 Unknown History sustained-release clonazepam 0.5 mg tablet 0.5 mg PO .QAFTERNOON 12/06/23 01/18/24 Unknown History docusate sodium 100 mg capsule 100 mg PO TID 12/06/23 01/18/24 Unknown History Flexeril 10 mg PO TID PRN Muscle Spasm 01/18/24 01/18/24 Unknown History Assessment and Plan Assessment Anesthesia Assessment: Chart Reviewed Final Anesthetic Review Family History of Problems with Anesthesia: No History of Problems with Anesthesia: No NPO: Yes ASA Class: III Final Preanesthetic Review: No Changes in Pt Med Stat, Meds/Allgs Chart Reviewed, Consent Obtained/Reviewed and Anes Risks/Benef Reviewed Patient Risk: Intermediate Procedure Risk: Intermediate Anesthetic Plan Anesthetic Plan: MAC: Disposition: Standard PACU
[2024-01-18 14:38] LABS: Hematocrit 36.9 % (37.0-47.0); Hemoglobin 12.2 g/dl (12.0-16.0); Mean Corpuscular HGB Conc 33.1 g/dl (31.0-35.0); Mean Corpuscular Hemoglobin 28.4 pg (27.0-33.0); Mean Corpuscular Volume 85.8 fL (80.0-98.0); Mean Platelet Volume 10.6 fL (9.4-12.3); Platelet Count 345 X10*3/uL (160-400); Red Cell Distribution Width 14.6 % (11.0-16.0); White Blood Count 11.4 X10*3/uL (4.8-10.8)
[2024-01-18 15:08] LABS: Anion Gap 13 (12-20); Blood Urea Nitrogen 19 mg/dL (9-16); Calcium 9.7 mg/dL (8.4-10.2); Carbon Dioxide 22 mmol/L (22-29); Chloride 110 mmol/L (96-108); Creatinine Clr Calc Pharmacy 126.5; Estimated Glomerular Filt Rate > 60; Glucose Random 95 mg/dL (60-115); Potassium 3.7 mmol/L (3.3-5.1); Sodium 141 mmol/L (135-145)
[2024-01-18 19:20] LABS: B Type Natriuretic Peptide 22 pg/mL (<100)
--- NOTE | 2024-01-27 10:39 | P.HPSUR_ITS ---
Pre-Procedural Eval Section A - 24 Hr Update-Section A only Date of Service: 01/27/24 Section B - Complete if H&P > 30 days Chief Complaint: Generalized abdominal pain, Change in bowel habit Relevant Family History (Specify if Yes): No Relevant Social History: None Present Medications: see Short Stay Collaborative assessment Medical History: Significant History ([place]'s disease Esophagitis COVID-19 O besity Lupus Mast cell disease History of psychiatric disorder SVT (supraventricular tachycardia) Pancreatitis Kidney stones Elevated cholesterol HTN (hypertension) Peptic ulcer DVT (deep venous thrombosis) Anxiety Back pain Myocardial infarction CAD (coronary) History of Previous Operations: Relevant previous surgery/procedure and date(s) (S/P hysterectomy Hx of cholecystectomy Hx of appendectomy S/P implantation of automatic cardioverter/defibrillator (AICD) S/P placement of cardiac pacemaker Status post Jimena fundoplication History of sphincterotomy of sphincter of Oddi History of kidney surgery H/O colonoscopy H/O endoscopy) Allergies: Allergies Allergy/AdvReac Type Severity Reaction Status Date / Time droperidol Allergy Severe Confusion, Verified 01/18/24 13:04 twitching haloperidol [From Haldol] Allergy Severe suicidal Verified 01/18/24 13:04 prochlorperazine Allergy Severe HIVES, Verified 01/18/24 13:04 [From COMPAZINE] panic attack propranolol [PROPRANOLOL] Allergy Severe RASH Verified 01/18/24 13:04 rivaroxaban [From Xarelto] Allergy Severe Hives, Verified 01/18/24 13:05 rash, N/V cefprozil [From CEFZIL] Allergy Intermediate HIVES Verified 12/06/23 13:24 escitalopram [From LEXAPRO] Allergy Intermediate N/V, Verified 01/18/24 13:04 palpatatuions sertraline [From ZOLOFT] Allergy Intermediate NAUSEA & Verified 01/18/24 13:04 VOMITING, palpatations metoclopramide [From REGLAN] AdvReac Severe AGITATION, Verified 01/18/24 13:04 N/V, palpatations phenelzine [From NARDIL] AdvReac Severe NAUSEA & Verified 01/18/24 13:04 VOMITING, rash, worsening headache Review of Systems Sugical H&P ROS: Negative: Constitution, Cardiovascular, Respiratory, Neurological, Psychiatric, Hem-Onc, Allergic/Immunologic, Gastrointestinal, Genitourinary, Musculoskeletal, Integumentary, Endocrine and Eyes/Ears/Nose/Throat Exam Surgical H&P Exam: Normal: HEENT, Normal: Heart, Normal: Lungs, Normal: Extre mities, Normal: Abdomen, Normal: Skin and Normal: Neurological Plan Diagnosis/Plan: Unchanged I have reviewed the history and physical and performed a pertinent physical examination on my patient. No changes have occurred unless specified. Time Spent With Patient Time: Total time managing care of this patient today ____ minutes.
--- OUTSIDE RECORDS SUMMARY | 2024-01-27 11:22 | XMS_ITS | Continuity of Care Document ---
Author Organization [facility] Address [address] [place] [address]- Care Team Providers Care Process Control Engineer Name Role Phone Maranda WILCOX, Silvio Martinez Primary Care Physician Encounter [facility] Date(s): 09/16/20 - 10/19/[address] [facility] [address] [place] [address]- Attending Physician: Viral OCAMPO, Maryanne Russo Allergies, Adverse Reactions, Alerts Substance Reaction Severity Status propranolol Rash Active Zoloft tachycardia n/v Active Nardil Palpitations - rapid N&V - Nausea and vomiting C/O - a headache Active Inderal n/v,tachcardia Active Cefzil Hives Active Haldol Active Compazine severe anxiety Hives Active Reglan severe anxiety~panic Active Lexapro n/v Active Xarelto rash Active Immunizations Given and Recorded Vaccine Date Status Refusal Reason influenza virus vaccine, inactivated 1 05/16/20 Re corded influenza virus vaccine, inactivated 2 06/23/16 Gi gualberto influenza virus vaccine, inactivated 3 06/29/13 Gi gualberto influenza virus vaccine, inactivated 05/24/12 Give n tetanus/diphtheria/pertussis, acel(Tdap) 01/02/18 Given pneumococcal 23-valent vaccine 4 12/10/15 Given Adacel (Tdap) (oldterm) 04/30/09 Recorded tetanus-diphtheria toxoids (Td) 06/05/03 Recorded 1Result Comment: GIVEN AT PHARM 2Result Comment: manufactuer: afluria 3Admin Note: vis 4Early/Late Reason: Other : Medications 21G 3mL syringe 21G 3mL syringe, See Instructions, # 25 each, Refills 0, Tot. Refills 0, Maintenance, use IM with hydrocortisone as needed for adrenal crisis, 05/02/20 12:59:00 EDT, Supply, 169, cm, 04/15/20 17:38:00 EDT, Height, 85, kg, 03/15/20 2:33:00 EDT, Dry Weight Start Date: 05/02/20 Status: Ordered 30 cc syringe 21 G needle 30 cc syringe 21 G needle, See Instructions, # 50 each, Refills 1, Tot. Refills 1, Maintenance, useto reconstitute solumedrol, 05/09/20 13:04:00 EDT, Supply, 169, cm, 04/15/20 17:38:00 EDT, Height, 85, kg, 03/15/20 2:33:00 EDT, Dry Weight Start Date: 05/09/20 Status: Ordered Alcohol Pads See Instructions, # 200 each, Refills 3, Tot. Refills 3, Maintenance, use twice daily with hydrocortisone injections SQ for adrenal insuff. 90 day supply, 10/02/20 12:04:00 EST, Supply, 170, cm, 09/18/20 12:56:00 EST, Height, 93, kg, 09/18/20 12:56:00... Start Date: 10/02/20 Stop Date: 01/30/21 Status: Ordered Alcohol Pads See Instructions, # 50 each, Refills 3, Tot. Refills 3, Maintenance, use with solumedrol as needed for adrenal crisis, 05/08/20 10:49:00 EDT, Supply, 169, cm, 04/15/20 17:38:00 EDT, Height, 85, kg, 03/15/20 2:33:00 EDT, Dry Weight Start Date: 05/08/20 Status: Ordered Carafate 1 gm/10 ml oral suspension 10 mL = 1 Gm, By Mouth, 3 times a day before meals, Maintenance, 03/08/20 16:53:00 EDT Start Date: 03/08/20 Status: Ordered Creon 36,000 units oral delayed release capsule 1 capsule, By Mouth, 3 times a day, with each meal and snack, # 270 capsule, 1 Refills, Maintenance, 10/21/19 11:17:00 EST, [email or web address] #[id number], 1 capsule By Mouth 3 times a day,Instr:with each meal and snack, 170, cm, 10/20/19 13:48:00 EST, H... Start Date: 10/21/19 Status: Ordered cromolyn 20 mg/mL oral solution 10 mL = 200 mg, By Mouth, 3 times a day, 30 minutes before meals and at bedtime, # 900 mL, 1 Refills, Maintenance, 10/11/18 15:32:52 EST, Solution Start Date: 10/11/18 Status: Ordered Famotidine = 20 mg, By Mouth, 2 times a day, 0 Refills, Maintenance, 03/07/20 20:24:00 EDT Start Date: 03/07/20 Status: Ordered fludrocortisone 0.1 mg oral tablet 1 tablet = 0.1 mg, By Mouth, Daily, # 90 tablet, 3 Refills, Acute 04/09/21 14:58:00 EDT, 04/09/20 14:57:00 EDT, Tablet, [email or web address] #[id number], 169, cm, 04/05/20 12:55:00 EDT, Height, 85, kg, 03/15/20 2:33:00 EDT, Dry Weight Start Date: 04/09/20 Stop Date: 04/09/21 Status: Ordered ibuprofen 800 mg oral tablet 800 mg, 1, tablet, By Mouth, 3 times a day, Maintenance, 03/08/20 16:56:00 EDT Start Date: 03/08/20 Status: Ordered Insulin Syringe, BD Ultra-Fine 1 cc 31 G x 8 mm (5/16in) See Instructions, # 60 each, Refills 11, Tot. Refills 11, Maintenance, use twice daily with solucortef, 10/02/20 11:59:00 EST, Supply, 170, cm, 09/18/20 12:56:00 EST, Height, 93, kg, 09/18/20 12:56:00 EST, Dry Weight Start Date: 10/02/20 Status: Ordered KlonoPIN 1 mg oral tablet 1 tablet = 1 mg, By Mouth, 3 times a day, TO REPLACE 08/06/2020 [facility] STATES [facility] DOES NOT HAVE, # 90 tablet, 0 Refills, Maintenance, 10/08/20 10:19:00 EST, Tablet, [email or web address] #[id number], 170, cm, 10/04/20 19:07:00 EST, Height, 91, kg, 0... Start Date: 10/08/20 Stop Date: 11/07/20 Status: Ordered KlonoPIN 1 mg oral tablet 2.5 tablet = 2.5 mg, By Mouth, Daily at bedtime, 0.5 mg TID 1 mg at hs, # 75 tablet, 3 Refills, Maintenance, 05/28/20 11:56:00 EDT, [email or web address] #[id number], 170, cm, 05/27/20 0:11:00 EDT, Height,90.4, kg, 05/27/20 0:11:00 EDT, Dry Weight Start Date: 05/28/20 Stop Date: 09/25/20 Status: Ordered lidocaine 1.8% topical film 1 patch, Topically, Daily, leave on up to 12 hours, # 30 each, 0 Refills, Maintenance, 08/24/19 8:56:45 EST, Film Start Date: 08/24/19 Status: Ordered Linzess 72 mcg oral capsule 1 capsule = 72 mcg, By Mouth, Daily, do not crush or chew, # 30 capsule, 0 Refills, Maintenance, 06/03/19 15:39:42 EDT, Capsule Start Date: 06/03/19 Status: Ordered Metoprolol Tartrate 25 mg oral tablet 1 tablet = 25 mg, By Mouth, 2 times a day, Call if any significant lightheadedness, # 60 tablet, 3 Refills, Maintenance, 10/16/20 16:21:00 EST, Tablet, [facility] #[id number], Partial fill upon patient request if the prescription is for a schedul... Start Date: 10/16/20 Stop Date: 02/13/21 Status: Ordered Nicotine = 21 mg, Topically, Daily, 0 Refills, Maintenance, 03/08/20 16:52:00 EDT, Patch Start Date: 03/08/20 Status: Ordered ondansetron 4 mg oral tablet 1 tablet = 4 mg, By Mouth, Every 8 hours, PRN Nausea & Vomiting, # 20 tablet, 0 Refills, Maintenance, 06/18/20 16:48:00 EDT, Tablet, [facility] #[id number], 170, cm, 06/18/20 15:14:00 EDT, Height, 90.4, kg, 06/18/20 15:14:00 EDT, Dry Weight Start Date: 06/18/20 Stop Date: 06/25/20 Status: Ordered Polymyxin B Ophthalmic See Instructions, 0 Refills, Maintenance, 03/08/20 20:05:00 EDT Start Date: 03/08/20 Status: Ordered Senna = 8.5 mg, By Mouth, 2 times a day, 0 Refills, Maintenance, 11/06/16 11:22:55 Start Date: 11/06/16 Status: Ordered Solu-CORTEF Act-O-Vial 100 mg injection See Instructions, use daily SQ for adrenal insufficiency. 14 mg qam and 7 mg qpm please provide extra 2 mg vial for stress dosing., # 8 each, 11 Refills, Soft Stop, 10/02/20 11:57:00 EST, Powder, [facility] #[id number], Partial fill upon patient... Start Date: 10/02/20 Status: Ordered Xylose 25 g powder Xylose 25 g powder, See Instructions, # 25 Gm, Refills 0, Tot. Refills 0, Maintenance, Take once orally with lab testing, 05/09/20 13:08:00 EDT, Supply, 169, cm, 04/15/20 17:38:00 EDT, Height, 85, kg, 03/15/20 2:33:00 EDT, Dry Weight Start Date: 05/09/20 Status: Ordered Problem List Condition Effective Dates Status Health Status Inform ant Asthma(Confirmed) Active Pacemaker, Biotronik, insert ed 10/29/14(Confirmed) 1 Active Chest pain(Confirmed) Active Colitis(Confirmed) Active Narcotic dependence(Confirmed) Active Essential hypertension(Confirmed) Active Gastroesophageal reflux disease(Confirmed) Active S/p REFUGIO-BSO(Confirmed) Active Hyperlipidemia(Confirmed) Active Insufficiency, adrenal(Confirmed) Active Mast cell disease(Confirmed) Active Normal coronary arteries(Confirmed) Active Ocular migraine(Confirmed) Active Opioid dependence(Confirmed) 2 Active Polypharmacy(Confirmed) Active PTSD (post-traumatic stress disorder)(Confirmed) Active PTSD (post-traumatic stress disorder)(Confirmed) Active MDD (major depressive disord er), recurrent episode, mild(Confirmed) Active SVT (supraventricular tachycardia)(Confirmed) Active Arm DVT (deep venous thrombo embolism), chronic(Confirmed) Active 1MRI compatible 2IAROGENIC Social History Social History Type Response Smoking Status 10 or more cigarette s (1/2 pack or more)/day in last 30 days entered on: 08/06/19 Sex
--- OUTSIDE RECORDS SUMMARY | 2024-01-27 11:22 | XMS_ITS | Continuity of Care Document ---
Author Organization [facility] Address [address] [place] [address]- Care Team Providers Care Geometry Tutor Name Role Phone Dash WILCOX ([place]), Pa[place] Anderson Primary Care Physician Encounter [facility] Date(s): 06/27/23 - 06/27/[address] [address]- Discharge Disposition: A-D/C Home Attending Physician: Faith Pritchard MD Admitting Physician: Faith Pritchard MD Referring Physician: Not on Staff, Referring MD Allergies, Adverse Reactions, Alerts Substance Reaction Severity Status propranolol Rash Active droperidol-fentanyl 1 Active Zoloft tachycardia n/v Active Inderal n/v,tachcardia Active Xarelto rash Active Lexapro n/v Active Nardil Palpitations - rapid N&V - Nausea and vomiting C/O - a headache Active Cefzil Hives Active Haldol Active Compazine severe anxiety Hives Active Reglan severe anxiety~panic Active 1Only allergic to droperidol NOT fentanyl. It won't let me add only the droperidol. RXN was sucidal thoughts with tremors Immunizations Given and Recorded Vaccine Date Status [...] Note: vis 4Early/Late Reason: Other : Medications (Vitamin D3) Cholecalciferol 400 ASSISTED units/mL oral syringe 1 mL = 10 mcg, By Mouth, Daily, 0 Refills, Maintenance, 03/18/23 16:25:00 EDT, Partial fill upon patientrequest if the prescription is for a schedule II opioid drug. Start Date: 03/18/23 Status: Ordered 3cc syring with 21 gu 1 needle 3cc syring with 21 gu 1 needle, See Instructions, # 60 each, Refills 11, Tot. Refills 11, Maintenance, use to reconstitute steroid twice daily, 05/27/23 15:59:00 EDT, Supply, 170, cm, 05/14/23 13:01:00 EDT, Height, 87, kg, 05/14/23 13:01:00 EDT, Dry... Start Date: 05/27/23 Status: Ordered Acetaminophen Tablet 975 mg, Tablet, By Mouth, Once, STAT, 06/27/23 9:30:00 EDT, Stop date 06/27/23 9:30:00 EDT Start Date: 06/27/23 Stop Date: 06/27/23 Status: Completed Albuterol (Eqv-ProAir HFA) 90 mcg/inh inhalation aerosol 2 puffs, Inhalation, Every 6 hours, # 1 each, 3 Refills, Maintenance, 08/20/20 11:21:00 EST, Partial fill upon patient request if the prescription is for a schedule II opioid drug., 170, cm, 08/20/2010:54:00 EST, Height, 90.5, kg, 07/09/20 23:20:00 E... Start Date: 08/20/20 Status: Ordered Aspirin Low Dose 81 mg oral delayed release tablet 1 tablet, By Mouth, Daily, # 30 tablet, 3 Refills, Maintenance, 08/17/22 15:43:00 EST, [facility] #[id number], 170, cm, 05/13/22 17:18:00 EDT, Height, 88.8, kg, 05/13/22 17:18:00 EDT, Dry Weight Start Date: 08/17/22 Status: Ordered atorvastatin 40 mg oral tablet 1 tablet = 40 mg, By Mouth, Daily, 0 Refills, Maintenance, 03/18/23 16:25:00 EDT, Partial fill uponpatient request if the prescription is for a schedule II opioid drug. Start Date: 03/18/23 Status: Ordered Colace sodium 100 mg oral capsule 100 mg, 1, capsule, By Mouth, 2 times a day, Refills 0, Maintenance, 05/28/23 15:11:00 EDT, Partialfill upon patient request if the prescription is for a schedule II opioid drug. Start Date: 05/28/23 Status: Ordered cyclobenzaprine 5 mg oral tablet 1 tablet = 5 mg, By Mouth, 2 times a day, PRN Spasm, 0 Refills, Maintenance, 05/10/23 20:56:00 EDT,Partial fill upon patient request if the prescription is for a schedule II opioid drug. Start Date: 05/10/23 Status: Ordered famotidine 20 mg oral tablet 20 mg, 1, tablet, By Mouth, 2 times a day, # 180 tablet, Refills 0, Tot. Refills 0, Maintenance, 01/08/21 13:59:00 EDT, Route to Pharmacy Electronically, [facility] #[id number], Partial fill upon patient request if the prescription is for a sched... Start Date: 01/08/21 Status: Ordered Flonase 50 mcg/inh nasal spray 2 sprays, Nares, Both, 2 times a day, PRN Congestion, # 16 Gm, 0 Refills, Maintenance, 08/20/20 11:17:00 EST, [place], [facility] #[id number], Partial fill upon patient request if the prescriptionis for a schedule II opioid drug., 170, cm, 2... Start Date: 08/20/20 Status: Ordered gabapentin 300 mg oral capsule See Instructions, 1 cap in the AM, 2 in the afternoon and 2 at bedtime, # 1 each, Refills 4, Tot. Refills 4, Maintenance, 11/11/22 15:13:00 EST, Instructions Replace Required Details, Route to Pharmacy Electronically, [facility] #[id number], Part... Start Date: 11/11/22 Status: Ordered Insulin Syringe, BD Ultra-Fine 1 cc 31 G x 8 mm (5/16in) See Instructions, # 60 each, Refills 11, Tot. Refills 11, Maintenance, use twice daily with solucortef, 05/27/23 14:18:00 EDT, Supply, 170, cm, 05/14/23 13:01:00 EDT, Height, 87, kg, 05/14/23 13:01:00 EDT, Dry Weight Start Date: 05/27/23 Status: Ordered KlonoPIN 1 mg oral tablet 1 tablet = 1 mg, By Mouth, 2 times a day, # 1 each, 0 Refills, Maintenance, 05/28/23 15:08:00 EDT, Tablet, Partial fill upon patient request if the prescription is for a schedule II opioid drug. Start Date: 05/28/23 Status: Ordered lidocaine 1.8% topical film 1 patch, Topically, Daily, leave on up to 12 hours, # 30 each, 0 Refills, Maintenance, 08/24/19 8:56:45 EST, Film Start Date: 08/24/19 Status: Ordered loratadine 10 mg oral tablet 10 mg, 1, tablet, By Mouth, Daily, # 30 tablet, Refills 0, Maintenance, 05/10/23 20:59:00 EDT, Partial fill upon patient request if the prescription is for a schedule II opioid drug. Start Date: 05/10/23 Status: Ordered Melatonin See Instructions, 0 Refills, Maintenance, 03/22/23 3:39:00 EDT, Partial fill upon patient request if the prescription is for a schedule II opioid drug. Start Date: 03/22/23 Status: Ordered metoprolol 100 mg oral tablet 100 mg, 1, tablet, By Mouth, 2 times a day, # 60 tablet, Refills 3, Tot. Refills 3, Maintenance, 05/14/23 20:59:00 EDT, Route to Pharmacy Electronically, [facility] #[id number], Partial fill upon patient request if the prescription is for a sched... Start Date: 05/14/23 Stop Date: 09/11/23 Status: Ordered montelukast 10 mg oral tablet 10 mg, 1, tablet, By Mouth, Daily, Refills 0, Maintenance, 05/10/23 21:00:00 EDT, Partial fill uponpatient request if the prescription is for a schedule II opioid drug. Start Date: 05/10/23 Status: Ordered ondansetron 4 mg oral tablet, disintegrating 2 tablet = 8 mg, By Mouth, Every 8 hours, PRN Nausea & Vomiting, # 1 tablet, 0 Refills, Maintenance, 05/13/23 10:33:00 EDT, Tablet, [facility] #[id number], Partial fill upon patient request if the prescription is for a schedule II opioid drug., 1... Start Date: 05/13/23 Stop Date: 05/16/23 Status: Ordered prazosin 2 mg oral capsule 2 capsule = 4 mg, By Mouth, Daily at bedtime, if PO intake is low or BP low below 110/70 only take one cap, # 60 capsule, 4 Refills, Maintenance, 11/11/22 15:17:00 EST, [facility] #[id number], Partial fill upon patient request if the prescription... Start Date: 11/11/22 Stop Date: 04/10/23 Status: Ordered Protonix 40 mg oral delayed release tablet 1 tablet = 40 mg, By Mouth, 2 times a day, # 90 tablet, 0 Refills, Maintenance, 06/14/23 23:43:00 EDT, EC Tablet Start Date: 06/14/23 Status: Ordered PROzac 20 mg oral capsule 40 mg, 2, capsule, By Mouth, Daily, # 60 capsule, Refills 4, Tot. Refills 4, Maintenance, 03/10/23 15:36:00 EDT, Route to Pharmacy Electronically, [facility] #[id number], Partial fill upon patient request if the prescription is for a schedule II... Start Date: 03/10/23 Stop Date: 08/07/23 Status: Ordered prucalopride 2 mg oral tablet 1 tablet = 2 mg, By Mouth, Daily, 0 Refills, Maintenance, 03/18/23 16:26:00 EDT, Partial fill upon patient request if the prescription is for a schedule II opioid drug. Start Date: 03/18/23 Status: Ordered Senna = 8.5 mg, By Mouth, 2 times a day, 0 Refills, Maintenance, 11/06/16 11:22:55 Start Date: 11/06/16 Status: Ordered Solu-CORTEF Act-O-Vial 100 mg injection See Instructions, use daily SQ for adrenal insufficiency. 14 mg qam and 7 mg qpm please provide extra 2 mg vial for stress dosing., # 8 each, 11 Refills, Soft Stop, 05/27/23 14:16:00 EDT, Powder, [facility] #[id number], Partial fill upon patient... Start Date: 05/27/23 Status: Ordered spironolactone 25 mg oral tablet 25 mg, 1, tablet, By Mouth, Daily, # 30 tablet, Refills 3, Tot. Refills 3, Maintenance, 05/14/23 20:55:00 EDT, Route to Pharmacy Electronically, [facility] #[id number], Partial fill upon patientrequest if the prescription is for a schedule II op... Start Date: 05/14/23 Stop Date: 09/11/23 Status: Ordered Problem List Condition Confirmation Course Effective Dates Status H ealth Status Informant Abdominal pain Confirmed Active Asthma Confirmed Active Pacemaker, Biotronik, inserted 10/29/14 1 Confirmed Active Chest pain Confirmed Active Colitis Confirmed Active Narcotic dependence Confirmed Active Diarrhea Confirmed Active Essential hypertension Confirmed Active Gastroduodenitis Confirmed Active Gastroesophageal reflux disease Confirmed Active S/p REFUGIO-BSO Confirmed Active Hyperlipidemia with target LDL less than 100 Confirmed Active Insufficiency, adrenal Confirmed Active Adrenal insufficiency Confirmed Active Mast cell disease Confirmed Active Normal coronary arteries Confirmed Active Obese class I Confirmed Active Ocular migraine Confirmed Active Opioid dependence 2 Confirmed Active Polypharmacy Confirmed Active PTSD (post-traumatic stress disorder) Confirmed Active PTSD (post-traumatic stress disorder) Confirmed Active 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 MDD (major depressive disorder), recurrent episode, mild Confirmed Active SVT (supraventricular tachycardia) Confirmed Active Arm DVT (deep venous thromboembolism), chronic Confirmed Active 1MRI compatible 2IAROGENIC Results Radiology Reports * Exam Date Time Procedure Performing Provider Status 06/27/23 9:55 AM Chest 2 Views Frontal and Lat Bruno Florentino; Auth (Verified) Notes: (Chest 2 Views Frontal and Lat) Reason For Exam: Shortness of Breath, Fever;Other: RESULT: Chest 2 Views Frontal and Lat Chest 2 Views Frontal and Lat Hx of Present Illness: chest pain; Reason: Other:; Shortness of Breath, Fever; Clinical Question(s): Pneumonia COMPARISON: Chest radiograph 06/24/2023 FINDINGS: LINES AND TUBES: Dual-lead left subclavian pacer wires are intact. LUNGS AND PLEURA: Clear lungs. Normal pulmonary vascularity. No pleural effusion. No pneumothorax. HEART, MEDIASTINUM AND DAGOBERTO: Heart is normal in size. Normal mediastinal and hilar contour. BONES AND SOFT TISSUES: No acute abnormality. IMPRESSION: No radiographic evidence of an acute cardiopulmonary process. No interval change from 06/24/2023. WSN: [id number] Ordering Physician: Faith Pritchard Dictated By: Rangel Gerard MD Dictated Date/Time: 06/27/23 9:58 am Reviewed By: Rangel Gerard MD Signed By: Rangel Gerard MD Signed Date/Time: 06/27/23 9:58 am Transcribed By: DIANE Transcribed Date/Time: 06/27/23 9:57 am Vital Signs Most recent to oldest [Reference Range]: 1 2 3 Height 170 cm (06/27/23 12:21 PM) 170 cm (06/27/23 9:06 AM) Weight 90 kg (06/27/23 12:21 PM) 90 kg (06/27/23 9:06 AM) Oxygen Saturation [94-100 %] 98 % (06/27/23 12:21 PM) 96 % (06/27/23 9:07 AM) Pulse Rate [55-90 bpm] 68 bpm (06/27/23 12:21 PM) 73 bpm (06/27/23 9:07 AM) Body Mass Index [18.5-24.99 kg/m2] 31.14 kg/m2 *>HHI* (06/27/23 12:21 PM) Blood Pressure [90-138/55-84 mm Hg] 120/71mm Hg (06/27/23 12:21 PM) 117/85mm Hg (06/27/23 9:07 AM) Respiratory Rate [16-30 br/min] 18 br/min (06/27/23 12:21 PM) 18 br/min (06/27/23 11:40 AM) 17 br/min (06/27/23 9:07 AM) Temperature [96.8-100.4 DegF] 97.9 DegF (06/27/23 9:07 AM) Mode of Delivery (Oxygen) Room air (06/27/23 9:07 AM) Blood pressure sites Arm, left (06/27/23 9:07 AM) Dry Weight 90 kg (06/27/23 12:21 PM) 90 kg (06/27/23 9:06 AM) Social History Social History Type Response Smoking Status Former smoker, quit more than 30 days ago entered on: 02/01/23 Sex Implantable Device List Procedure Provider Procedure Date Device Type Site Cystoscopy Retrograde Ureteral Stent Navneet Bruno Hernandez MD 07/09/21 Unknown Ureter Device Identifier Serial Number Lot or Batch Number Manufacturing Date Expiration Date Distinct Identification Code MRI Safety Implantable Status Assigning Authority Unknown Unknown Unknown Unknown 07/09/21 Unknown Unknown Active Un known Patient Care team information Care Team Personnel Name: Dash WILCOX ([place]) , [place] Anderson Position: [facility] Outreach Member Role: PCP Address: Address: [address] [place] [id number] [place] Name: Daina Ibrahim RN Position: [facility] ED RN W/OE and Tasks Member Role: Primary Care Nurse Name: Madeline Baird RN Position: [facility] ED RN W/OE and Tasks Member Role: Primary Care Nurse Name: Teresa Carpio Position: [facility] RN Member Role: Primary Care Nurse Name: Inge Elizabeth RN Position: [facility] SN RN Member Role: Primary Care Nurse Name: Kelley Prasad RN Position: [facility] RN Member Role: Primary Care Nurse Name: Cindy Medeiros RN Position: [facility] RN Member Role: Primary Care Nurse Name: Linnette De La O RN Position: [facility] QUARRY BOSS Member Role: Primary Care Nurse Name: Alina Castillo NP Position: [facility] Associate Professional Member Role: Primary Care Nurse Address: Address: [address] [place] [address]- [place] Name: Mary Anne Kilpatrick RN Position: [facility] MR W/ Merge Member Role: Primary Care Nurse Name: Nicole Hernández RN Position: [facility] RN Member Role: Primary Care Nurse Name: Lindsay Srinivasan CNM Position: [facility] Prop Drawer Member Role: Primary Care Nurse Address: Address: [address] [place] [address] [place] [address]- [place] Name: Larissa Olson [place] Position: [facility] RN Member Role: Primary Care Nurse Name: Karen Roa RN Position: [facility] ED RN W/OE and Tasks Member Role: Primary Care Nurse Name: Mary Alice Stevens RN Position: [facility] RN Member Role: Primary Care Nurse Name: Beverly Grey Position: [facility] RN Member Role: Primary Care Nurse Name: Alexy Geronimo RN Position: [facility] RN Member Role: Primary Care Nurse Name: Raúl Rudolph DO Position: [facility] PROFESSOR OF LITERATURE MD Member Role: Lifetime PROFESSOR OF LITERATURE Physician Address: Address: [address] [place] [address] Senior [place] [address]- Name: Evelyn Haynes RN Position: [facility] RN Member Role: Primary Care Nurse Name: Crissy Metzger RN Position: [facility] RN Member Role: Primary Care Nurse Name: Elisa Gilbert RN Position: [facility] RN Member Role: Primary Care Nurse Name: Corina Solorio RN Position: [facility] AMB Nurse Member Role: Primary Care Nurse Name: Shawnee Lane RN Position: [facility] RN W/OE and Tasks Member Role: Primary Care Nurse Name: Erna Douglass RN Position: [facility] RN Member Role: Primary Care Nurse Name: Keyana Ndiaye RN Position: [facility] Marketing Senior Recruiter Member Role: Primary Care Nurse Name: Anabella Nicholson RN Position: [facility] Nurse Member Role: Primary Care Nurse Name: Brenda Tomas RN Position: [facility] Outreach Member Role: Primary Care Nurse Name: Ramona Ybarra RN Position: [facility] RN Member Role: Primary Care Nurse Address: Address: [address] [place] [id number]- Name: Nancy Gallagher RN Position: [facility] Marketing Senior Recruiter Member Role: Primary Care Nurse Name: Evelyn Allen RN Position: [facility] OB RN Member Role: Primary Care Nurse Name: Jackelin Watt RN Position: [facility] RN Member Role: Primary Care Nurse Name: Raymundo Elizabeth RN Position: [facility] SN RN Member Role: Primary Care Nurse Name: Opal Calderon RN Position: [facility] RN Member Role: Primary Care Nurse Name: Yadiel Warner RN Position: [facility] SN RN Member Role: Primary Care Nurse Name: Matt Keen Position: [facility] ED TA [facility] Member Role: Patient Care Provider Name: Faith Pritchard MD Position: [facility] Resident Member Role: Admitting Physician Address: Address: [address] [place] [address] Emergency [place], [place] [address] Name: Nimesh Patel RN Position: [facility] ED RN W/OE and Tasks Member Role: Patient Care Provider Care Team Related Persons Name: BONITA IBRAHIMSSE Address: home [address] [place], [place] Name: GIANLUCA IBRAHIM Address: home [address] [place] [address] Name: ABBIE IBRAHIM Address: home [address] [place], [place] Name: SIM CERDA Name: DIANE CERDA Address: home [address] [place] [address] Name: SOLO CORRIGAN Address: home [address] [place] [address] Name: SOLO FLORES Address: home [address] [place] [address] Name: RAYMUNDO MAYFIELD Address: home [address] [place] [address]
--- OUTSIDE RECORDS SUMMARY | 2024-01-27 11:22 | XMS_ITS | Continuity of Care Document ---
Author Organization [facility] Address [address] [place] [address] [address] [place] [address]- Care Team Providers Care Auto Fleet Manager Name Role Phone Silvio Low MD Primary Care Physician Encounter [facility] Date(s): 04/22/20 - 06/22/[address] [place] [address]- [place] Attending Physician: Agustín East MD Referring Physician: Silvio Low MD Allergies, Adverse Reactions, Alerts Substance Reaction [...] Dry Weight Start Date: 05/09/20 Status: Ordered albuterol 90 mcg/inh inhalation powder 2 puffs, Inhalation, Every 4 hours, PRN Wheezing/Shortness of Breath, Maintenance, 03/08/20 16:57:00 EDT, Powder Start Date: 03/08/20 Status: Ordered Alcohol Pads See Instructions, # 50 each, Refills 3, Tot. Refills 3, Maintenance, use with solumedrol as needed for adrenal crisis, 05/08/20 10:49:00 EDT, Supply, 169, cm, 04/15/20 17:38:00 EDT, Height, 85, kg, 03/15/20 2:33:00 EDT, Dry Weight Start Date: 05/08/20 Status: Ordered Bacteriostatic Water for Injection (30ml vials) Bacteriostatic Water for Injection (30ml vials), See Instructions, # 360 mL, Refills 11, Tot. Refills 11, Maintenance, [facility]: [id number], 05/08/20 16:20:00 EDT, Supply, 169, cm, 04/15/20 17:38:00 EDT, Height, 85, kg, 03/15/20 2:33:00 EDT, Dry Weight Start Date: 05/08/20 Status: Ordered Benadryl Capsule 50 mg, By Mouth, 3 times a day, PRN, Refills 0, Maintenance, as needed for itching, 12/26/16 19:57:31 Start Date: 4/8/17 Status: Ordered Carafate 1 gm/10 ml oral suspension 10 mL = 1 Gm, By Mouth, 3 times a day before meals, Maintenance, 03/08/20 16:53:00 EDT Start Date: 03/08/20 Status: Ordered Creon 36,000 units oral delayed release capsule 1 capsule, By Mouth, 3 times a day, with each meal and snack, # 270 capsule, 1 Refills, Maintenance, 10/21/19 11:17:00 EST, [facility] #[id number], 1 capsule By Mouth 3 times a [...] 20:24:00 EDT Start Date: 03/07/20 Status: Ordered Flonase 1 spray, Nares, Both, Daily, PRN Sinus Symptoms, 0 Refills, Maintenance Start Date: 06/18/11 Status: Ordered fludrocortisone 0.1 mg oral tablet 1 tablet = 0.1 mg, By Mouth, Daily, # 90 tablet, 3 Refills, Acute 04/09/21 14:58:00 EDT, 04/09/20 14:57:00 EDT, Tablet, [facility] #[id number], 169, cm, 04/05/20 12:55:00 EDT, Height, 85, kg, 03/15/20 2:33:00 EDT, Dry Weight Start Date: 04/09/20 Stop Date: 04/09/21 Status: Ordered ibuprofen 800 mg oral tablet 800 mg, 1, tablet, By Mouth, 3 times a day, Maintenance, 03/08/20 16:56:00 EDT Start Date: 03/08/20 Status: Ordered KlonoPIN 1 mg oral tablet 2.5 tablet = 2.5 mg, By Mouth, Daily at bedtime, 0.5 mg TID 1 mg at hs, # 75 tablet, 3 Refills, Maintenance, 05/28/20 11:56:00 EDT, [facility] #[id number], 170, cm, 05/27/20 0:11:00 EDT, Height,90.4, kg, [...] EDT, Capsule Start Date: 06/03/19 Status: Ordered methylprednisolone 2 gm injectable powder for injection See Instructions, inject 4 grams IM for adrenal crisis, # 12 Gm, 11 Refills, Acute 04/30/21 16:58:00 EDT, 04/30/20 16:57:00 EDT, [facility] #[id number], 169, cm, 04/15/20 17:38:00 EDT, Height, 85, kg, 03/15/20 2:33:00 EDT, Dry Weight Start Date: 04/30/20 Stop Date: 04/30/21 Status: Ordered methylprednisolone 2 gm injectable powder for injection See Instructions, inject 4 grams IM for adrenal crisis, # 48 Gm, 11 Refills, Acute 06/08/21 12:08:00 EDT, 05/03/21 10:04:00 EDT, [facility] #[id number], 169, cm, 04/15/20 17:38:00 EDT, Height, 85, kg, 03/15/20 2:33:00 EDT, Dry Weight Start Date: 05/03/21 Stop Date: 06/08/21 Status: Ordered methylprednisolone 2 gm injectable powder for injection See Instructions, inject 4 grams IM for adrenal crisis, # 48 Gm, 3 Refills, Acute 05/03/21 10:04:00EDT, 05/03/20 10:03:00 EDT, [facility] #[id number], 169, cm, 04/15/20 17:38:00 EDT, Height, 85, kg, 03/15/20 2:33:00 EDT, Dry Weight Start Date: 05/03/20 Stop Date: 05/03/21 Status: Ordered methylprednisolone 2 gm injectable powder for injection See Instructions, inject 4 grams IM for adrenal crisis, # 48 Gm, 3 Refills, Acute 05/03/21 11:58:00EDT, 05/03/21 10:04:00 EDT, [facility], 169, cm, 04/15/20 17:38:00 EDT, Height, 85, kg, 03/15/20 2:33:00 EDT, Dry Weight Start Date: 05/03/21 Stop Date: 05/03/21 Status: Ordered Nicotine = 21 mg, Topically, Daily, 0 Refills, Maintenance, 03/08/20 16:52:00 EDT, Patch Start Date: 03/08/20 Status: Ordered ondansetron 4 mg oral tablet 1 tablet = 4 mg, By Mouth, Every 8 hours, PRN Nausea & Vomiting, # 20 tablet, 0 Refills, Maintenance, 06/18/20 16:48:00 EDT, Tablet, [facility] #[id number], 170, cm, 06/18/20 15:14:00 EDT, Height, 90.4, kg, 06/18/20 15:14:00 EDT, Dry Weight Start Date: 06/18/20 Stop Date: 06/25/20 Status: Ordered Polymyxin B Ophthalmic See Instructions, 0 Refills, Maintenance, 03/08/20 20:05:00 EDT Start Date: 03/08/20 Status: Ordered Senna = 8.5 mg, By Mouth, 2 times a day, 0 Refills, Maintenance, 11/06/16 11:22:55 Start Date: 11/06/16 Status: Ordered Solu-CORTEF 100 mg preservative-free injection = 100 mg, Intramuscular, Once, prn adrenal crisis, # 5 each, 11 Refills, Soft Stop, 05/03/20 16:07:00 EDT, [facility] #[id number], 169, cm, 04/15/20 17:38:00 EDT, Height, 85, kg, 03/15/20 2:33:00 EDT, Dry Weight Start Date: 05/03/20 Status: Ordered Xylose 25 g powder Xylose 25 g powder, See Instructions, # 25 Gm, Refills 0, Tot. Refills 0, Maintenance, Take once orally with lab testing, 05/09/20 13:08:00 EDT, Supply, 169, cm, 04/15/20 17:38:00 EDT, Height, 85, kg, 03/15/20 2:33:00 EDT, Dry Weight Start Date: 05/09/20 Status: Ordered Zofran ODT 4 mg oral tablet, disintegrating 1 tablet = 4 mg, By Mouth, Every 8 hours, PRN Nausea & Vomiting, # 5 tablet, 0 Refills, Maintenance, 12/05/19 20:49:00 EDT, DIS Tablet, [facility] #[id number], 170, cm, 12/05/19 19:19:00 EDT, Height, 88.7, kg, 12/05/19 19:19:00 EDT, Dry Weight Start Date: 12/05/19 Status: Ordered Problem List Condition Effective Dates [...]
--- OUTSIDE RECORDS SUMMARY | 2024-01-27 11:22 | XMS_ITS | Continuity of Care Document ---
Author Organization [facility] Address [address] [place] [address]- Care Team Providers Care Arc Furnace Operator Name Role Phone Agustín Faria MD Primary Care Physician Encounter [facility] Date(s): 10/18/19 - 10/28/19 [facility] [address] [place] [address]- [facility] Attending Physician: Maximo Cano Admitting Physician: AdmMaximo diaz Referring Physician: Admtr ArRajendra Allergies, Adverse Reactions, Alerts Substance Reaction Severity Status propranolol Rash Active Zoloft tachycardia n/v Active Nardil Palpitations - rapid N&V - Nausea and vomiting C/O - a headache Active Inderal n/v,tachcardia Active Cefzil Hives Active Haldol Active Compazine severe anxiety Hives Active Reglan severe anxiety~panic Active Lexapro n/v Active Xarelto rash Active Immunizations Given and Recorded Vaccine Date Status Refusal Reason tetanus/diphtheria/pertussis, acel(Tdap) 01/02/18 Given influenza virus vaccine, inactivated 1 06/23/16 Gi gualberto influenza virus vaccine, inactivated 2 06/29/13 Gi gualberto influenza virus vaccine, inactivated 05/24/12 Give n pneumococcal 23-valent vaccine 3 12/10/15 Given Adacel (Tdap) (oldterm) 04/30/09 Recorded tetanus-diphtheria toxoids (Td) 06/05/03 Recorded 1Result Comment: manufactuer: afluria 2Admin Note: vis 3Early/Late Reason: Other : Medications albuterol 90 mcg/inh inhalation powder 2 puffs, Inhalation, Every 4 hours, 0 Refills, Maintenance, 09/02/16 14:40:22 Start Date: 09/02/16 Status: Ordered aspirin 81 mg oral tablet 1 tablet = 81 mg, By Mouth, Daily, for 30 days, # 30 tablet, 3 Refills, Hard Stop 02/18/20 11:16:00EDT, 10/21/19 11:16:00 EST, Tablet, [facility] #[id number], 170, cm, 10/20/19 13:48:00 EST, Height, 92.3, kg, 10/15/19 6:38:00 EST, Dry Weight Start Date: 10/21/19 Stop Date: 02/18/20 Status: Ordered atorvastatin 20 mg oral tablet 1 tablet = 20 mg, By Mouth, Daily, # 90 tablet, 1 Refills, Maintenance, 10/21/19 11:16:00 EST, Tablet, [facility] #[id number], 170, cm, 10/20/19 13:48:00 EST, Height, 92.3, kg, 10/15/19 6:38:00 EST, Dry Weight Start Date: 10/21/19 Status: Ordered Benadryl Capsule 50 mg, By Mouth, 3 times a day, PRN, Refills 0, Maintenance, as needed for itching, 12/26/16 19:57:31 Start Date: 12/26/16 Status: Ordered buPROPion 75 mg oral tablet 2 tablet = 150 mg, By Mouth, 2 times a day, Maintenance, 06/03/19 15:42:19 EDT, Tablet Start Date: 06/03/19 Status: Ordered Carafate 1 gm/10 ml oral suspension SHAKE LQ AND TK 10 ML PO BID OES Start Date: 06/03/19 Status: Ordered Claritin 10 mg oral tablet 10 mg, 1, tablet, By Mouth, Daily, # 30 tablet, Refills 1, Tot. Refills 1, Maintenance, 02/21/19 8:58:39 EDT, Route to Pharmacy Electronically, [id number], [facility] 3 Start Date: 02/21/19 Stop Date: 04/22/19 Status: Ordered Creon 36,000 units oral delayed release capsule 1 capsule, By Mouth, 3 times a day, with each meal and snack, # 270 capsule, 1 Refills, Maintenance, 10/21/19 11:17:00 EST, [facility] #[id number], 1 capsule By Mouth 3 times a day,Instr:with each meal and snack, 170, cm, 10/20/19 13:48:00 EST, H... Start Date: 10/21/19 Status: Ordered cromolyn 20 mg/mL oral solution 10 mL = 200 mg, By Mouth, 3 times a day, 30 minutes before meals and at bedtime, # 900 mL, 1 Refills, Maintenance, 10/11/18 15:32:52 EST, Solution Start Date: 10/11/18 Status: Ordered duloxetine 30 mg oral enteric coated capsule = 30 mg, By Mouth, Daily at bedtime, # 30 tablet, 0 Refills, Maintenance, 06/03/19 15:44:11 EDT, Capsule Start Date: 06/03/19 Status: Ordered Flonase 1 spray, Nares, Both, Daily, PRN Sinus Symptoms, 0 Refills, Maintenance Start Date: 06/18/11 Status: Ordered fludrocortisone 0.1 mg oral tablet 1 tablet = 0.1 mg, By Mouth, Daily, # 30 tablet, 11 Refills, Maintenance, 02/21/19 8:58:08 EDT, Tablet Start Date: 02/21/19 Stop Date: 02/16/20 Status: Ordered hydrocortisone 5 mg oral tablet See Instructions, By Mouth, 2 times a day, 10 mg in am and 5mg at 3 pm. Pls give extra tablets in case of crisis, # 120 each, 11 Refills, Maintenance, 02/21/19 8:58:18 EDT, Tablet Start Date: 02/21/19 Status: Ordered ibuprofen 800 mg oral tablet 800 mg, 1, tablet, By Mouth, 3 times a day, Refills 0, Maintenance, 08/24/19 8:56:20 EST Start Date: 08/24/19 Status: Ordered lidocaine 1.8% topical film 1 [...] EDT, Capsule Start Date: 06/03/19 Status: Ordered montelukast 10 mg oral tablet 10 mg, 1, tablet, By Mouth, Daily before dinner, Maintenance, 06/03/19 15:52:36 EDT Start Date: 06/03/19 Status: Ordered nadolol 20 mg oral tablet 20 mg, 1, tablet, By Mouth, 2 times a day, # 30 tablet, Refills 4, Tot. Refills 4, Maintenance, 08/24/19 9:15:39 EST, Route to Pharmacy Electronically, [id number], [facility] #[id number], 170, cm, 08/24/19 8:38:44 EST, H... Start Date: 08/24/19 Status: Ordered nicotine 21 mg/24 hr transdermal film, extended release 1 patch, Topically, Daily, # 30 patch, 0 Refills, Maintenance, 06/03/19 15:45:39 EDT, Patch, 1 patch Topically Daily Start Date: 06/03/19 Status: Ordered ondansetron 4 mg oral tablet, disintegrating 1 tablet = 4 mg, By Mouth, Every 8 hours, PRN Nausea & Vomiting, # 10 tablet, 0 Refills, Maintenance, 09/28/19 0:43:00 EST, Tablet, [facility] #[id number], 171, cm, 09/27/19 22:45:00 EST, Height, 92.2, kg, 09/27/19 22:45:00 EST, Dry Weight Start Date: 09/28/19 Status: Ordered Oxycodone = 15 mg, By Mouth, Every 6 hours, PRN Pain , Moderate, 0 Refills, Maintenance, 01/04/17 10:10:47 Start Date: 01/04/17 Status: Ordered Senna = 8.5 mg, By Mouth, 2 times a day, 0 Refills, Maintenance, 11/06/16 11:22:55 Start Date: 11/06/16 Status: Ordered Solu-CORTEF 100 mg preservative-free injection = 100 mg, Intramuscular, Once, # 1 each, 0 Refills, Soft Stop, 09/28/19 0:51:00 EST, [id number], 171, cm, 09/27/19 22:45:00 EST, Height, 92.2, kg, 09/27/19 22:45:00 EST, Dry Weight Start Date: 09/28/19 Status: Ordered Solu-CORTEF Act-O-Vial 100 mg injection = 100 mg, Intramuscular, Every 6 hours, 0 Refills, Maintenance, 08/24/19 8:55:52 EST Start Date: 08/24/19 Status: Ordered spironolactone 25 mg oral tablet 12.5 mg, 0.5, tablet, By Mouth, Daily, # 15 tablet, Refills 6, Tot. Refills 6, Maintenance, 02/21/19 8:59:46 EDT, Route to Pharmacy Electronically, [id number], [facility] 3 Start Date: 02/21/19 Stop Date: 09/19/19 Status: Ordered Vitamin D3 oral tablet 5,000 iu, By Mouth, Every week, # 30 tablet, 0 Refills, Maintenance, 09/24/17 10:55:41, Tablet Start Date: 09/24/17 Status: Ordered Problem List Condition Effective Dates Status Health Status Inform ant Adrenal insufficiency(Confirmed) Active Ankle pain, right(Confirmed) Active Asthma(Confirmed) Active Borderline personality disorder(Confirmed) Active Pacemaker, Biotronik, insert ed 10/29/14(Confirmed) 1 Active Celiac disease(Confirmed) Active Chronic pain(Confirmed) Active JIE III(Confirmed) Active Colitis(Confirmed) Active Depression with anxiety(Confirmed) Active Peripheral neuropathy(Confirmed) Active Dysuria(Confirmed) Active Essential hypertension(Confirmed) Active Gastroesophageal reflux disease(Confirmed) Active Headache(Confirmed) Active Hemorrhoid(Confirmed) Active S/p REFUGIO-BSO(Confirmed) Active Hyperlipidemia(Confirmed) Active Hypokalemia(Confirmed) Active Low back pain(Confirmed) Active Mast cell disorder(Confirmed) Active Chronic narcotic use(Confirmed) Active Nausea and vomiting(Confirmed) Active Noninfectious colitis(Confirmed) Active Ocular migraine(Confirmed) Active Opioid dependence(Confirmed) 2 Active Palpitations(Confirmed) Active Panic disorder with agoraphobia(Confirmed) Active PTSD (post-traumatic stress disorder)(Confirmed) Active SVT (supraventricular tachycardia)(Confirmed) Active Arm DVT (deep venous thrombo embolism), chronic(Confirmed) Active Vitamin B6 deficiency(Confirmed) Active 1MRI compatible 2IAROGENIC Social History Social History Type Response Smoking Status 10 or more cigarette s (1/2 pack or more)/day in last 30 days entered on: 08/06/19 Sex
--- OUTSIDE RECORDS SUMMARY | 2024-01-27 11:22 | XMS_ITS | Continuity of Care Document ---
Author Organization [facility] Address [address] [place] [address]- Care Team Providers Care Roll Trucker Name Role Phone Maranda WILCOX, Silvio Martinez Primary Care Physician Encounter [facility] Date(s): 05/07/20 - 06/06/20 [facility] [address] [place] [address]- [facility] Allergies, Adverse Reactions, Alerts Substance Reaction Severity [...] mL, Refills 11, Tot. Refills 11, Maintenance, [facility]: [id number], 05/08/20 16:20:00 EDT, Supply, 169, cm, 04/15/20 17:38:00 EDT, Height, 85, kg, 03/15/20 2:33:00 EDT, Dry Weight Start Date: 05/08/20 Status: Ordered Benadryl Capsule 50 mg, By Mouth, 3 times a day, PRN, Refills 0, Maintenance, as needed for itching, 12/26/16 19:57:31 Start Date: 12/26/16 Status: Ordered Carafate 1 gm/10 ml oral suspension 10 mL = 1 Gm, By Mouth, 3 times a day before meals, Maintenance, 03/08/20 16:53:00 EDT Start Date: 03/08/20 Status: Ordered Creon 36,000 units oral delayed release capsule 1 capsule, By Mouth, 3 times a day, with each meal and snack, # 270 capsule, 1 Refills, Maintenance, 10/21/19 11:17:00 EST, [facility] #[id number], 1 capsule By Mouth 3 times a [...] 04/09/21 14:58:00 EDT, 04/09/20 14:57:00 EDT, Tablet, [facility] #[id number], 169, cm, 04/05/20 12:55:00 EDT, Height, 85, [...] tablet, 3 Refills, Maintenance, 05/28/20 11:56:00 EDT, [facility] #[id number], 170, cm, 05/27/20 0:11:00 EDT, Height,90.4, kg, [...] Acute 04/30/21 16:58:00 EDT, 04/30/20 16:57:00 EDT, [facility] #[id number], 169, cm, 04/15/20 17:38:00 EDT, Height, 85, kg, 03/15/20 2:33:00 EDT, Dry Weight Start Date: 04/30/20 Stop Date: 04/30/21 Status: Ordered methylprednisolone 2 gm injectable powder for injection See Instructions, inject 4 grams IM for adrenal crisis, # 48 Gm, 11 Refills, Acute 06/08/21 12:08:00 EDT, 05/03/21 10:04:00 EDT, [facility]/pharmacy #[id number], 169, cm, 04/15/20 17:38:00 EDT, Height, 85, kg, 03/15/20 2:33:00 EDT, Dry Weight Start Date: 05/03/21 Stop Date: 06/08/21 Status: Ordered methylprednisolone 2 gm injectable powder for injection See Instructions, inject 4 grams IM for adrenal crisis, # 48 Gm, 3 Refills, Acute 05/03/21 10:04:00EDT, 05/03/20 10:03:00 EDT, [facility] #[id number], 169, cm, 04/15/20 17:38:00 EDT, Height, 85, kg, 03/15/20 2:33:00 EDT, Dry Weight Start Date: 05/03/20 Stop Date: 05/03/21 Status: Ordered methylprednisolone 2 gm injectable powder for injection See Instructions, inject 4 grams IM for adrenal crisis, # 48 Gm, 3 Refills, Acute 05/03/21 11:58:00EDT, 05/03/21 10:04:00 EDT, [facility], 169, cm, 04/15/20 17:38:00 EDT, Height, 85, kg, 03/15/20 2:33:00 EDT, Dry Weight Start Date: 05/03/21 Stop Date: 05/03/21 Status: Ordered Nicotine = 21 mg, Topically, Daily, 0 Refills, Maintenance, 03/08/20 16:52:00 EDT, Patch Start Date: 03/08/20 Status: Ordered Polymyxin B Ophthalmic See Instructions, 0 Refills, Maintenance, 03/08/20 20:05:00 EDT Start Date: 03/08/20 Status: Ordered Senna = 8.5 mg, By Mouth, 2 times a day, 0 Refills, Maintenance, 11/06/16 11:22:55 Start Date: 11/06/16 Status: Ordered Solu-CORTEF 100 mg preservative-free injection = 100 mg, Intramuscular, Once, prn adrenal crisis, # 5 each, 11 Refills, Soft Stop, 05/03/20 16:07:00 EDT, [facility] #[id number], 169, cm, 04/15/20 17:38:00 EDT, Height, 85, kg, 03/15/20 2:33:00 EDT, Dry Weight Start Date: 05/03/20 Status: Ordered Vitamin D3 oral tablet 5,000 iu, By Mouth, Every week, # 30 tablet, 0 Refills, Maintenance, 09/24/17 10:55:41, Tablet Start Date: 09/24/17 Status: Ordered Xylose 25 g powder Xylose [...] Refills, Maintenance, 12/05/19 20:49:00 EDT, DIS Tablet, [facility] #[id number], 170, cm, 12/05/19 19:19:00 EDT, Height, 88.7, [...] Ocular migraine(Confirmed) Active Opioid dependence(Confirmed) 2 Active PTSD (post-traumatic stress disorder)(Confirmed) Active PTSD [...]
--- OUTSIDE RECORDS SUMMARY | 2024-01-27 11:22 | XMS_ITS | Continuity of Care Document ---
Author Organization [facility] Address [address] [place] [address]- Care Team Providers Care Site Superintendent Name Role Phone Agustín Faria MD Primary Care Physician [id number] Date(s): 06/12/19 - 09/08/19 [facility] [place] [address] [place] [address]- [facility] Attending Physician: Agustín Faria MD Admitting Physician: Agustín Faria MD Allergies, Adverse Reactions, Alerts Substance Reaction [...] 09/02/16 14:40:22 Start Date: 09/02/16 Status: Ordered atorvastatin 20 mg oral tablet 1 tablet = 20 mg, By Mouth, Daily, # 90 tablet, 1 Refills, Maintenance, 06/03/19 15:46:50 EDT, Tablet Start Date: 06/03/19 Status: Ordered Benadryl Capsule 50 mg, By [...] 02/21/19 8:58:39 EDT, Route to Pharmacy Electronically, [id number], [facility] 3 Start Date: 02/21/19 Stop Date: 04/22/19 Status: Ordered cromolyn 20 mg/mL oral solution [...] 08/24/19 9:15:39 EST, Route to Pharmacy Electronically, [id number], [id number], 170, cm, 08/24/19 8:38:44 EST, H... Start Date: 08/24/19 Status: Ordered nicotine 21 mg/24 hr transdermal film, extended release 1 patch, Topically, Daily, # 30 patch, 0 Refills, Maintenance, 06/03/19 15:45:39 EDT, Patch, 1 patch Topically Daily Start Date: 06/03/19 Status: Ordered Oxycodone = 15 mg, By [...] 02/21/19 8:59:46 EDT, Route to Pharmacy Electronically, [id number], [facility] 3 Start Date: 02/21/19 Stop Date: [...]
--- OUTSIDE RECORDS SUMMARY | 2024-01-27 11:22 | XMS_ITS | Continuity of Care Document ---
Author Organization [facility] [place] Address [address] [place] [address]- Care Team Providers Care Press Set Up Person Name Role Phone Maranda WILCOX, Silvio Martinez Primary Care Physician Encounter [facility] Date(s): 06/18/20 - 07/18/20 [facility] [address] [place] [address]- [facility] Allergies, Adverse Reactions, Alerts Substance Reaction Severity [...] mL, Refills 11, Tot. Refills 11, Maintenance, [facility]: [id number], 05/08/20 16:20:00 EDT, Supply, 169, cm, 04/15/20 [...] capsule, 1 Refills, Maintenance, 10/21/19 11:17:00 EST, [facility] #[id number], 1 capsule By Mouth 3 times a [...] 04/09/21 14:58:00 EDT, 04/09/20 14:57:00 EDT, Tablet, [facility] #[id number], 169, cm, 04/05/20 12:55:00 EDT, Height, 85, [...] tablet, 3 Refills, Maintenance, 05/28/20 11:56:00 EDT, [facility] #[id number], 170, cm, 05/27/20 0:11:00 EDT, Height,90.4, kg, [...] Acute 04/30/21 16:58:00 EDT, 04/30/20 16:57:00 EDT, [facility] #[id number], 169, cm, 04/15/20 17:38:00 EDT, Height, 85, kg, 03/15/20 2:33:00 EDT, Dry Weight Start Date: 04/30/20 Stop Date: 04/30/21 Status: Ordered methylprednisolone 2 gm injectable powder for injection See Instructions, inject 4 grams IM for adrenal crisis, # 48 Gm, 11 Refills, Acute 06/08/21 12:08:00 EDT, 05/03/21 10:04:00 EDT, [facility]/pharmacy #[id number], 169, cm, 04/15/20 17:38:00 EDT, Height, 85, kg, 03/15/20 2:33:00 EDT, Dry Weight Start Date: 05/03/21 Stop Date: 06/08/21 Status: Ordered methylprednisolone 2 gm injectable powder for injection See Instructions, inject 4 grams IM for adrenal crisis, # 48 Gm, 3 Refills, Acute 05/03/21 10:04:00EDT, 05/03/20 10:03:00 EDT, [facility] #[id number], 169, cm, 04/15/20 17:38:00 EDT, Height, 85, kg, 03/15/20 2:33:00 EDT, Dry Weight Start Date: 05/03/20 Stop Date: 05/03/21 Status: Ordered methylprednisolone 2 gm injectable powder for injection See Instructions, inject 4 grams IM for adrenal crisis, # 48 Gm, 3 Refills, Acute 05/03/21 11:58:00EDT, 05/03/21 10:04:00 EDT, [facility], 169, cm, 04/15/20 17:38:00 [...] 0 Refills, Maintenance, 06/18/20 16:48:00 EDT, Tablet, [facility] #[id number], 170, cm, 06/18/20 15:14:00 EDT, Height, 90.4, [...] # 5 each, 11 Refills, Soft Stop, 07/10/20 6:01:00 EDT, [facility] #[id number], 170, cm, 07/10/20 2:42:00 EDT, Height, 90.5, kg, 07/09/20 23:20:00 EDT, Dry Weight Start Date: 07/10/20 Status: Ordered Solu-CORTEF 100 mg preservative-free injection = 100 mg, Intramuscular, Once, prn adrenal crisis, # 5 each, 11 Refills, Soft Stop, 05/03/20 16:07:00 EDT, [facility] #[id number], 169, cm, 04/15/20 17:38:00 EDT, Height, 85, [...] Refills, Maintenance, 12/05/19 20:49:00 EDT, DIS Tablet, [facility] #[id number], 170, cm, 12/05/19 19:19:00 EDT, Height, 88.7, [...]
--- OUTSIDE RECORDS SUMMARY | 2024-01-27 11:22 | XMS_ITS | Continuity of Care Document ---
Author Organization [facility] Address [address] [place] [address]- Care Team Providers Care Senior Qa Engineer Name Role Phone Mariella OCAMPO, Amelia Primary Care Physician Encounter [facility] Date(s): 11/30/19 - 12/10/19 [facility] [address] [place] [address] [facility] Attending Physician: Maximo Cano Admitting Physician: Maximo Cano Referring Physician: Maximo Cano Allergies, Adverse Reactions, Alerts Substance Reaction Severity [...] Stop 02/18/20 11:16:00EDT, 10/21/19 11:16:00 EST, Tablet, [facility] #[id number], 170, cm, 10/20/19 13:48:00 EST, Height, 92.3, kg, 10/15/19 6:38:00 EST, Dry Weight Start Date: 10/21/19 Stop Date: 02/18/20 Status: Ordered atorvastatin 20 mg oral tablet 1 tablet = 20 mg, By Mouth, Daily, # 90 tablet, 1 Refills, Maintenance, 10/21/19 11:16:00 EST, Tablet, [facility] #[id number], 170, cm, 10/20/19 13:48:00 EST, Height, 92.3, [...] 02/21/19 8:58:39 EDT, Route to Pharmacy Electronically, [id number], [facility] 3 Start Date: 02/21/19 Stop Date: 04/22/19 Status: Ordered Creon 36,000 units oral delayed release capsule 1 capsule, By Mouth, 3 times a day, with each meal and snack, # 270 capsule, 1 Refills, Maintenance, 10/21/19 11:17:00 EST, [facility] #[id number], 1 capsule By Mouth 3 times a day,Instr:with each meal and snack, 170, cm, 10/20/19 13:48:00 EST, H... Start Date: 10/21/19 Status: Ordered cromolyn 20 mg/mL oral solution 10 mL = 200 mg, By Mouth, 3 times a day, 30 minutes before meals and at bedtime, # 900 mL, 1 Refills, Maintenance, 10/11/18 15:32:52 EST, Solution Start Date: 10/11/18 Status: Ordered Flonase 1 spray, Nares, Both, [...] 08/24/19 9:15:39 EST, Route to Pharmacy Electronically, [id number], [facility] #[id number], 170, cm, 08/24/19 8:38:44 EST, H... Start [...] 0 Refills, Maintenance, 09/28/19 0:43:00 EST, Tablet, [facility] #[id number], 171, cm, 09/27/19 22:45:00 EST, Height, 92.2, kg, 09/27/19 22:45:00 EST, Dry Weight Start Date: 09/28/19 Status: Ordered Oxycodone = 15 mg, By Mouth, Every 6 hours, PRN Pain , Moderate, 0 Refills, Maintenance, 01/04/17 10:10:47 Start Date: 01/04/17 Status: Ordered potassium chloride 20 mEq oral tablet, extended release 1 tablet = 20 mEq, By Mouth, Daily, # 30 tablet, 0 Refills, Maintenance, 12/05/19 19:28:00 EDT, ER Tablet Start Date: 12/05/19 Status: Ordered Senna = 8.5 mg, By Mouth, 2 times a day, 0 Refills, Maintenance, 11/06/16 11:22:55 Start Date: 11/06/16 Status: Ordered Solu-CORTEF 100 mg preservative-free injection = 100 mg, Intramuscular, Once, # 1 each, 0 Refills, Soft Stop, 09/28/19 0:51:00 EST, [facility] #[id number], 171, cm, 09/27/19 22:45:00 EST, Height, 92.2, [...] 02/21/19 8:59:46 EDT, Route to Pharmacy Electronically, [id number], [facility] 3 Start Date: 02/21/19 Stop Date: 09/19/19 Status: Ordered Vitamin D3 oral tablet 5,000 iu, By Mouth, Every week, # 30 tablet, 0 Refills, Maintenance, 09/24/17 10:55:41, Tablet Start Date: 09/24/17 Status: Ordered Zofran ODT 4 mg oral tablet, disintegrating 1 tablet = 4 mg, By Mouth, Every 8 hours, PRN Nausea & Vomiting, # 5 tablet, 0 Refills, Maintenance, 12/05/19 20:49:00 EDT, DIS Tablet, [facility] #[id number], 170, cm, 12/05/19 19:19:00 EDT, Height, 88.7, kg, 12/05/19 19:19:00 EDT, Dry Weight Start Date: 12/05/19 Status: Ordered Problem List Condition Effective Dates Status Health Status Inform ant Adrenal insufficiency(Confirmed) Active Ankle pain, right(Confirmed) Active Anxiety(Confirmed) 11/09/19 Active Asthma(Confirmed) Active Borderline personality disorder(Confirmed) Active [...] agoraphobia(Confirmed) Active PTSD (post-traumatic stress disorder)(Confirmed) Active PTSD [...]
--- OUTSIDE RECORDS SUMMARY | 2024-01-27 11:23 | XMS_ITS | Continuity of Care Document ---
Author Organization [facility] [place] Address [address] [place] [address]- Care Team Providers Care Manufacturing Clerk Name Role Phone Agustín Faria MD Primary Care Physician [phone] Encounter [facility] Date(s): 08/02/19 - 10/14/19 [facility] [place] [address] [place] [address]- [facility] Attending Physician: Mariella OCAMPO, Amelia Allergies, Adverse Reactions, Alerts Substance Reaction Severity [...] 02/21/19 8:58:39 EDT, Route to Pharmacy Electronically, [id number], [facility] 3 Start Date: 02/21/19 Stop Date: 04/22/19 [...] 08/24/19 9:15:39 EST, Route to Pharmacy Electronically, [id number], [facility] #[id number], 170, cm, 08/24/19 8:38:44 EST, H... Start [...] 0 Refills, Maintenance, 09/28/19 0:43:00 EST, Tablet, [facility] #[id number], 171, cm, 09/27/19 22:45:00 EST, Height, 92.2, [...] 0 Refills, Soft Stop, 09/28/19 0:51:00 EST, [facility] #[id number], 171, cm, 09/27/19 22:45:00 EST, Height, 92.2, [...] 02/21/19 8:59:46 EDT, Route to Pharmacy Electronically, [id number], [facility] 3 Start Date: 02/21/19 Stop Date: 09/19/19 Status: Ordered Vitamin D3 oral tablet 5,000 iu, By Mouth, Every week, # 30 tablet, 0 Refills, Maintenance, 09/24/17 10:55:41, Tablet Start Date: 09/24/17 Status: Ordered Problem List Condition Effective Dates Status Health Status Inform ant Adrenal insufficiency(Confirmed) Active Ankle pain, right(Confirmed) Active Asthma(Confirmed) Active Borderline personality disorder(Confirmed) Active Pacemaker, Biotronik, insert ed 2/9/15(Confirmed) 1 Active Celiac disease(Confirmed) Active Chronic pain(Confirmed) [...]
--- OUTSIDE RECORDS SUMMARY | 2024-01-27 11:23 | XMS_ITS | Continuity of Care Document ---
Author Organization [facility] ter Address [address] [place] [id number]- Care Team Providers Care Gear Shaver Set Up Operator Name Role Phone Agustín Faria MD Primary Care Physician [phone] Encounter [facility] Date(s): 07/18/21 - 07/18/[address] [id number] Discharge Disposition: A-D/C Home Attending Physician: Jamari Coleman MD Admitting Physician: Jamari Coleman MD Referring Physician: Jamari Coleman MD Allergies, Adverse Reactions, Alerts Substance Reaction [...] syringe 21G 3mL syringe, See Instructions, # 10 each, Refills 1, Tot. Refills 1, Maintenance, use IM with hydrocortisone as needed for adrenal crisis, 04/15/21 10:32:00 EDT, Supply, 170.18, cm, 01/20/21 10:21:00 EDT, Height, 79.5, kg, 01/20/21 10:21:00 EDT, D... Start Date: 04/15/21 Status: Ordered 30 cc syringe 21 G [...] Date: 10/02/20 Stop Date: 01/30/21 Status: Ordered amoxicillin 875 mg oral tablet = 875 mg, By Mouth, Every 12 hours, Take 1 tab on evening of 07/15 1 tab every 12hrs on 07/16 and 07/17, # 5 tablet, 0 Refills, Maintenance, 07/15/21 10:36:00 EDT, Tablet, [facility], Partial fill upon patient request if the prescripti... Start Date: 07/15/21 Stop Date: 07/18/21 Status: Ordered Banophen 25 mg oral tablet 2 tablet = 50 mg, By Mouth, 3 times a day, PRN for allergy symptoms, # 30 tablet, 0 Refills, Maintenance, 12/30/20 1:13:00 EDT, Tablet, Partial fill upon patient request if the prescription is for a schedule II opioid drug. Start Date: 12/30/20 Status: Ordered HYDROmorphone Inj (PACU ONLY) 0.4 mg, Injection, IV Push Slowly, Every 5 minutes, up to a maximum of 2 mg, Hold for: RR less than8 OR Sedation Scale of C, PRN for Pain , Severe, Routine, 07/18/21 17:19:00 EDT Start Date: 07/18/21 Stop Date: 07/19/21 Status: Discontinued Insulin Syringe, BD Ultra-Fine 1 cc 31 G x 8 mm (5/16in) See Instructions, # 60 each, Refills 11, Tot. Refills 11, Maintenance, use twice daily with solucortef, 04/15/21 10:31:00 EDT, Supply, 170.18, cm, 01/20/21 10:21:00 EDT, Height, 79.5, kg, 01/20/21 10:21:00 EDT, Dry Weight Start Date: 04/15/21 Status: Ordered lidocaine 1.8% topical film 1 patch, Topically, Daily, leave on up to 12 hours, # 30 each, 0 Refills, Maintenance, 08/24/19 8:56:45 EST, Film Start Date: 08/24/19 Status: Ordered ondansetron 8 mg oral tablet, disintegrating 1 tablet = 8 mg, By Mouth, 3 times a day, PRN Nausea & Vomiting, # 30 tablet, 0 Refills, Maintenance, 12/26/20 12:55:00 EDT, [id number], Partial fill upon patient request if the prescription is for a schedule II opioid drug., 170, cm,... Start Date: 12/26/20 Status: Ordered Percocet-5 Tablet 2 tablet, Tablet, By Mouth, Every 4 hours, in PACU ONLY, PRN for Pain , Moderate, if patient can tolerate po, Routine, 07/18/21 17:19:00 EDT Start Date: 07/18/21 Stop Date: 07/19/21 Status: Discontinued Potassium Chloride = 40 mEq, By Mouth, 2 times a day, 0 Refills, Maintenance, 01/20/21 5:39:00 EDT, Partial fill upon patient request if the prescription is for a schedule II opioid drug. Start Date: 01/20/21 Status: Ordered Senna = 8.5 mg, By Mouth, 2 times a day, 0 Refills, Maintenance, 11/06/16 11:22:55 Start Date: 11/06/16 Status: Ordered Solu-CORTEF Act-O-Vial 100 mg injection See Instructions, use daily SQ for adrenal insufficiency. 14 mg qam and 7 mg qpm please provide extra 2 mg vial for stress dosing., # 8 each, 11 Refills, Soft Stop, 04/15/21 10:31:00 EDT, Powder, [id number], Partial fill upon patient request i... Start Date: 04/15/21 Status: Ordered Zofran 4 mg oral tablet 1 tablet = 4 mg, By Mouth, Every 8 hours, PRN Nausea & Vomiting, # 10 tablet, 0 Refills, Maintenance, 01/20/21 7:49:00 EDT, Tablet, [id number], Partial fill upon patient request if the prescription is for a schedule II opioid drug., 1... Start Date: 01/20/21 Status: Ordered Problem List Condition Effective Dates Status Health Status Inform ant Abdominal pain(Confirmed) Active Addisons disease(Confirmed) Active Asthma(Confirmed) Active Pacemaker, Biotronik, insert ed 10/29/14(Confirmed) 1 Active Chest pain(Confirmed) Active Colitis(Confirmed) Active Narcotic dependence(Confirmed) Active Diarrhea(Confirmed) Active Essential hypertension(Confirmed) Active Gastroduodenitis(Confirmed) Active Gastroesophageal reflux disease(Confirmed) Active S/p REFUGIO-BSO(Confirmed) Active Hyperlipidemia with target L DL less than 100(Confirmed) Active Insufficiency, adrenal(Confirmed) Active Mast cell disease(Confirmed) Active Normal coronary arteries(Confirmed) Active Ocular migraine(Confirmed) Active Opioid dependence(Confirmed) 2 Active Polypharmacy(Confirmed) Active PTSD (post-traumatic stress disorder)(Confirmed) Active PTSD (post-traumatic stress disorder)(Confirmed) Active Allyssa's syndrome(Confirmed) Active Functional overlay(Confirmed) Active MDD (major depressive disord er), recurrent episode, mild(Confirmed) Active SVT (supraventricular tachycardia)(Confirmed) Active Arm DVT (deep venous thrombo embolism), chronic(Confirmed) Active 1MRI compatible 2IAROGENIC Results Radiology Reports * Exam Date Time Procedure Performing Provider Status 07/18/21 4:46 PM C-Arm < 1 Hour Do , Patric; Auth (Delicia ified) Notes: (C-Arm < 1 Hour) Reason For Exam: Hematuria Ureteroscopy, Left cysto RESULT: C-Arm < 1 Hour Findings/ Impression: 2 fluoroscopic spot images during left ureteropyelography. Technologist time: 20 minutes Fluoroscopy time: 4.6 seconds WSN: [id number] Ordering Physician: Jamari Coleman Dictated By: Bruno Ortiz MD Dictated Date/Time: 07/18/21 4:48 pm Reviewed By: Bruno Ortiz MD Signed By: Bruno Ortiz MD Signed Date/Time: 07/18/21 4:48 pm Transcribed By: DIANE Transcribed Date/Time: 07/18/21 4:47 pm * Exam Date Time Procedure Performing Provider Status 07/18/21 4:46 PM Urethrocystography Retrograde Do , Ti en; Auth (Verified) Notes: (Urethrocystography Retrograde) Reason For Exam: Hematuria Ureteroscopy, Left cysto RESULT: Urethrocystography Retrograde Findings/ Impression: 2 fluoroscopic spot images during left ureteropyelography. Technologist time: 20 minutes Fluoroscopy time: 4.6 seconds WSN: [id number] Ordering Physician: Jamari Coleman Dictated By: Bruno Ortiz MD Dictated Date/Time: 07/18/21 4:48 pm Reviewed By: Bruno Ortiz MD Signed By: Bruno Ortiz MD Signed Date/Time: 07/18/21 4:48 pm Transcribed By: DIANE Transcribed Date/Time: 07/18/21 4:47 pm Vital Signs Most recent to oldest [Reference Range]: 1 2 3 Oxygen Saturation [94-100 %] 96 % (07/18/21 5:45 PM) 95 % (07/18/21 5:30 PM) 95 % (07/18/21 5:15 PM) Pulse Rate [55-90 bpm] 85 bpm (07/18/21 1:44 PM) Blood Pressure [90-138/55-84 mm Hg] 125/72mm Hg (07/18/21 5:45 PM) 124/81mm Hg (07/18/21 5:30 PM) 131/81mm Hg (07/18/21 5:15 PM) Respiratory Rate [16-30 br/min] 16 br/min (07/18/21 5:53 PM) 16 br/min (07/18/21 5:34 PM) 15 br/min *L* (07/18/21 5:30 PM) Temperature [96.8-100.4 DegF] 98 DegF (07/18/21 5:30 PM) 98.1 DegF (07/18/21 4:30 PM) 97.8 DegF (07/18/21 1:44 PM) Liters per Minute 5 L/min (07/18/21 4:30 PM) Mode of Delivery (Oxygen) Room air (07/18/21 5:45 PM) Room air (07/18/21 5:30 PM) Room air (07/18/21 5:15 PM) Temperature Route Temporal (07/18/21 5:30 PM) Temporal (07/18/21 4:30 PM) Temporal (07/18/21 1:44 PM) Dry Weight 73.6 kg (07/18/21 1:44 PM) Dry Weight Obtained Via Standing scale (07/18/21 1:44 PM) Social History Social History Type Response Smoking Status Current every day rowan munoz; Previous treatment: Counseling; Previous treatment: Nicotine replacement; Other: 1/2 ppd x 20 yrs; entered on: 09/16/16 Sex Medical Equipment Implanted Date:07/09/21Target Site:Ureter Description Quantity MRI Company Model STENT STRETCH VL 6FR - BSCI (162-849) 1 [employer] Unknown GO:No Information Assigning Authority: FDA
--- OUTSIDE RECORDS SUMMARY | 2024-01-27 11:23 | XMS_ITS | Continuity of Care Document ---
Author Organization [facility] Address [address] [place] [address]- Care Team Providers Care Legal Secretary Receptionist Name Role Phone Maranda WILCOX, Silvio Martinez Primary Care Physician Encounter [facility] Date(s): 08/08/20 - 09/07/20 [facility] [place] [address] [place] [address]- Allergies, Adverse Reactions, Alerts Substance Reaction Severity [...] Refills 11, Maintenance, [facility]: [id number], 05/08/20 16:20:00 EDT, Supply, 169, cm, 04/15/20 [...] 270 capsule, 1 Refills, Maintenance, 10/21/19 11:17:00 [facility], [facility] #[id number], 1 capsule By Mouth 3 times a [...] 04/09/21 14:58:00 EDT, 04/09/20 14:57:00 EDT, Tablet, [facility] #[id number], 169, cm, 04/05/20 12:55:00 EDT, Height, 85, [...] tablet, 3 Refills, Maintenance, 05/28/20 11:56:00 EDT, [facility] #[id number], 170, cm, 05/27/20 0:11:00 EDT, Height,90.4, kg, [...] Acute 04/30/21 16:58:00 EDT, 04/30/20 16:57:00 EDT, [facility] #[id number], 169, cm, 04/15/20 17:38:00 EDT, Height, 85, kg, 03/15/20 2:33:00 EDT, Dry Weight Start Date: 04/30/20 Stop Date: 04/30/21 Status: Ordered methylprednisolone 2 gm injectable powder for injection See Instructions, inject 4 grams IM for adrenal crisis, # 48 Gm, 11 Refills, Acute 06/08/21 12:08:00 EDT, 05/03/21 10:04:00 EDT, [facility][id number], 169, cm, 04/15/20 17:38:00 EDT, Height, 85, kg, 03/15/20 2:33:00 EDT, Dry Weight Start Date: 05/03/21 Stop Date: 06/08/21 Status: Ordered methylprednisolone 2 gm injectable powder for injection See Instructions, inject 4 grams IM for adrenal crisis, # 48 Gm, 3 Refills, Acute 05/03/21 10:04:00EDT, 05/03/20 10:03:00 EDT, [facility] #[id number], 169, cm, 04/15/20 17:38:00 EDT, Height, 85, kg, 03/15/20 2:33:00 EDT, Dry Weight Start Date: 05/03/20 Stop Date: 05/03/21 Status: Ordered methylprednisolone 2 gm injectable powder for injection See Instructions, inject 4 grams IM for adrenal crisis, # 48 Gm, 3 Refills, Acute 05/03/21 11:58:00EDT, 05/03/21 10:04:00 EDT, [facility], 169, cm, 04/15/20 17:38:00 EDT, Height, [...] 0 Refills, Maintenance, 06/18/20 16:48:00 EDT, Tablet, [facility] #[id number], 170, cm, 06/18/20 15:14:00 EDT, Height, 90.4, [...] 11 Refills, Soft Stop, 07/10/20 6:01:00 EDT, [facility] #[id number], 170, cm, 07/10/20 2:42:00 EDT, Height, 90.5, kg, 07/09/20 23:20:00 EDT, Dry Weight Start Date: 07/10/20 Status: Ordered Solu-CORTEF 100 mg preservative-free injection = 100 mg, Intramuscular, Once, prn adrenal crisis, # 5 each, 11 Refills, Soft Stop, 05/03/20 16:07:00 EDT, [facility] #[id number], 169, cm, 04/15/20 17:38:00 EDT, Height, 85, [...] Refills, Maintenance, 12/05/19 20:49:00 EDT, DIS Tablet, [facility] #[id number], 170, cm, 12/05/19 19:19:00 EDT, Height, 88.7, [...]
--- OUTSIDE RECORDS SUMMARY | 2024-01-27 11:23 | XMS_ITS | Continuity of Care Document ---
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 Start Date: 03/18/23 Status: Ordered Albuterol (Eqv-ProAir HFA) 90 mcg/inh inhalation aerosol [...] tablet, 3 Refills, Maintenance, 08/17/22 15:43:00 EST, [facility] #[id number], 170, cm, 05/13/22 17:18:00 EDT, Height, 88.8, kg, 05/13/22 17:18:00 EDT, Dry Weight Start Date: 08/17/22 Status: Ordered atorvastatin 40 mg oral tablet 1 tablet = 40 mg, By Mouth, Daily, 0 Refills, Maintenance, 03/18/23 16:25:00 EDT, Partial fill uponpatient request if the prescription is for a schedule II opioid drug. Start Date: 03/18/23 Status: Ordered cyclobenzaprine 5 mg oral tablet [...] 01/08/21 13:59:00 EDT, Route to Pharmacy Electronically, [facility] #[id number], Partial fill upon patient request if the prescription is for a sched... Start Date: 01/08/21 Status: Ordered Flonase 50 mcg/inh nasal spray 2 sprays, Nares, Both, 2 times a day, PRN Congestion, # 16 Gm, 0 Refills, Maintenance, 08/20/20 11:17:00 EST, [place] #[id number], Partial fill upon patient request if the prescriptionis for a schedule II opioid drug., 170, cm, 2... Start Date: 08/20/20 Status: Ordered gabapentin 300 mg oral capsule 300 mg, 1, capsule, By Mouth, 2 times a day, # 60 capsule, Refills 4, Tot. Refills 4, Maintenance, 11/11/22 15:13:00 EST, Route to Pharmacy Electronically, [facility] #[id number], Partial fill upon patient request if the prescription is for a jose... Start Date: 11/11/22 Stop Date: 04/10/23 Status: Ordered HYDROmorphone Inj 1 mg, Injection, IV Push Slowly, Once, PRN for Other, Pain >2/10, VY, 05/11/23 3:02:00 EDT Start Date: 05/11/23 Stop Date: 05/11/23 Status: Completed lidocaine 1.8% topical film 1 patch, Topically, [...] opioid drug. Start Date: 05/10/23 Status: Ordered LORazepam 1 mg oral tablet 1 tablet = 1 mg, By Mouth, 3 times a day, PRN for anxiety, 0 Refills, Maintenance, 05/10/23 20:58:00 EDT, Tablet, Partial fill upon patient request if the prescription is for a schedule II opioid drug. Start Date: 05/10/23 Status: Ordered Melatonin See Instructions, 0 Refills, Maintenance, 03/22/23 3:39:00 EDT, Partial fill upon patient request if the prescription is for a schedule II opioid drug. Start Date: 03/22/23 Status: Ordered meloxicam 15 mg oral tablet 1 tablet = 15 mg, By Mouth, Daily, # 30 tablet, 0 Refills, Maintenance, 05/10/23 20:59:00 EDT, Tablet, Partial fill upon patient request if the prescription is for a schedule II opioid drug. Start Date: 05/10/23 Status: Ordered metoprolol succinate 100 mg oral capsule, extended release 1 capsule = 100 mg, By Mouth, Daily, # 90 capsule, 0 Refills, Maintenance, 05/10/23 21:00:00 EDT, ER Capsule, Partial fill upon patient request if the prescription is for a schedule II opioid drug. Start Date: 05/10/23 Status: Ordered montelukast 10 mg oral tablet 10 mg, 1, tablet, By Mouth, Daily, Refills 0, Maintenance, 05/10/23 21:00:00 EDT, Partial fill uponpatient request if the prescription is for a schedule II opioid drug. Start Date: 05/10/23 Status: Ordered MorPHINE Inj 4 mg, Injection, IV Push Slowly, Every 30 minutes for 2 doses/times, Hold for: SBP <100 mmHg, AMS, RR <10, SpO2 <90%, PRN for Other, Pain >4/10, VY, 05/11/23 0:49:00 EDT, Stop date Limited # of times Start Date: 05/11/23 Stop Date: 05/11/23 Status: Completed Omeprazole = 20 mg, By Mouth, Daily, 0 Refills, Maintenance, 05/10/23 21:01:00 EDT, Partial fill upon patient request if the prescription is for a schedule II opioid drug. Start Date: 05/10/23 Status: Ordered ondansetron 4 mg oral tablet 1 tablet = 4 mg, By Mouth, Every 8 hours, PRN Nausea & Vomiting, # 3 tablet, 0 Refills, Maintenance, 05/10/23 21:01:00 EDT, Tablet, Partial fill upon patient request if the prescription is for a schedule II opioid drug. Start Date: 05/10/23 Status: Ordered prazosin 2 mg oral capsule 2 capsule = 4 mg, By Mouth, Daily at bedtime, if PO intake is low or BP low below 110/70 only take one cap, # 60 capsule, 4 Refills, Maintenance, 11/11/22 15:17:00 EST, [facility] #[id number], Partial fill upon patient request if the prescription... Start Date: 11/11/22 Stop Date: 04/10/23 Status: Ordered Protonix 20 mg oral delayed release tablet 2 tablet = 40 mg, By Mouth, Daily, # 60 tablet, 5 Refills, Maintenance, 01/08/21 13:58:00 EDT, EC Tablet, 170, cm, 01/08/21 13:24:00 EDT, Height, 80.45, kg, 12/30/20 14:46:00 EDT, Dry Weight Start Date: 01/08/21 Status: Ordered PROzac 20 mg oral capsule 20 mg, 1, capsule, By Mouth, Daily, # 30 capsule, Refills 4, Tot. Refills 4, Maintenance, 03/10/23 15:36:00 EDT, Route to Pharmacy Electronically, [facility] #[id number], Partial fill upon patient request if the [...] # 8 each, 11 Refills, Soft Stop, 04/20/22 10:54:00 EDT, Powder, [facility] #[id number], Partial fill upon patient... Start Date: 04/20/22 Status: Ordered Problem List Condition Confirmation Course [...] Exam Date Time Procedure Performing Provider Status 05/11/23 2:[address] Abd/Pelvis W/ IV Contrast Only Coreen Ortiz; Auth (Verified) Notes: (CT Abd/Pelvis W/ IV Contrast Only) Reason For Exam: upper abd pain, elevated lipase;Pain RESULT: CT Abd/Pelvis W/ IV Contrast Only CT Abd/Pelvis W/ IV Contrast Only Hx of Present Illness: PT C O recent stay in hospital for 51 days for gastroparesis, states she didnot get better and was D C last week and has had decrease PO intake also c o CP and flank pain and abd pain; Reason: Pain; upper abd pain, elevated lipase; Clinical Question(s): Pancreatitis TECHNIQUE: Spiral CT through the abdomen and pelvis with IV contrast formatted in 3 planes. 100 cc of Omnipaque 300 was administered intravenously. This study was performed without oral contrast. Weight-based protocol using automatic tube modulation was used to optimize exposure parameters. CTDIvol Body: 19.74 mGy, DLP Body: 1015 mGy*cm. COMPARISON: CT of the abdomen and pelvis 07/09/2021. 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 Visualized Chest: Lung bases are clear. No pleural effusion. The heart is normal in size. No pericardial effusion. Diaphragm: Normal. Liver: Multiple low density lesions probably reflect cysts. Focal fatty infiltration adjacent to the falciform ligament.. Gallbladder: Absent consistent with prior cholecystectomy. Bile ducts: No biliary ductal dilation. Spleen: Normal. Pancreas: Normal. Adrenal glands: Normal. Kidneys and ureters: No hydronephrosis, stones, or suspicious masses. Bladder: Decompressed. Reproductive organs: Hysterectomy. Stomach, small bowel, and large bowel: Postsurgical changes from Jimena fundoplication at the GE junction. Possible mild wall thickening superimposed on these changes. No evidence of bowel obstruction. Appendix: Not seen. There are surgical clips at the base of the cecum probably reflecting appendectomy. Peritoneum and retroperitoneum: No ascites or pneumoperitoneum. No omental or mesenteric lesions. Lymph nodes: No enlarged lymph nodes. Blood vessels: Normal. No aneurysm. No evidence of venous thrombosis. Abdominal and pelvic wall: Unremarkable. Bones: No acute abnormality. Postsurgical changes of anterior fusion at the L4- L5 level. IMPRESSION: Possible wall thickening of the gastroesophageal junction superimposed on chronic findings from Jimena fundoplication. Correlate for evidence of esophagitis/gastritis. A similar preliminary report was provided by [facility]. WSN: [id number] Ordering Physician: Magi Rolon Dictated By: Karen Georges MD Dictated Date/Time: 05/11/23 8:53 am Reviewed By: Karen Georges MD Signed By: Karen Georges MD Signed Date/Time: 05/11/23 8:53 am Transcribed By: DIANE Transcribed Date/Time: 05/11/23 8:34 am * Exam Date Time Procedure Performing Provider Status 05/10/23 10:06 PM Chest 2 Views Frontal and Lat Evelyn Muñiz (Verified) Notes: (Chest 2 Views Frontal and Lat) Reason For Exam: Chest Pain;Other: RESULT: Chest 2 Views Frontal and Lat Chest 2 Views Frontal and Lat Hx of Present Illness: PT C O recent stay in hospital for 51 days for gastroparesis, states she didnot get better and was D C last week and has had decrease PO intake also c o CP and flank pain and abd pain; Reason: Other:; Chest Pain; Clinical Question(s): Other: COMPARISON: CXR 03/18/2023 FINDINGS: LINES AND TUBES: Dual-lead left subclavian pacer/AICD wires are intact. LUNGS AND PLEURA: Clear lungs. Normal pulmonary vascularity. No pleural effusion. No pneumothorax. HEART, MEDIASTINUM AND DAGOBERTO: Heart is normal in size. Normal mediastinal and hilar contour. BONES AND SOFT TISSUES: No acute abnormality. Cholecystectomy clips. IMPRESSION: No acute abnormality. I have personally reviewed the images and I agree with this report. WSN: [id number] Ordering Physician: Smith Hensley Dictated By: Erik Mcneill MD Dictated Date/Time: 05/10/23 10:14 p Reviewed By: Man Duncan MD Signed By: Man Duncan MD Signed Date/Time: 05/10/23 10:19 pm Transcribed By: DIANE Transcribed Date/Time: 05/10/23 10:11 pm Vital Signs Most recent to oldest [Reference Range]: 1 2 3 Height 170 cm (05/10/23 10:22 PM) 170 cm (05/10/23 8:48 PM) Weight 88.5 kg (05/10/23 10:22 PM) 88.5 kg (05/10/23 8:48 PM) Oxygen Saturation [94-100 %] 98 % (05/11/23 4:00 AM) 98 % (05/10/23 10:22 PM) 98 % (05/10/23 8:48 PM) Pulse Rate [55-90 bpm] 74 bpm (05/11/23 4:00 AM) 74 bpm (05/10/23 10:22 PM) 104 bpm *H* (05/10/23 8:48 PM) Blood Pressure [90-138/55-84 mm Hg] 146/94mm Hg *H* (05/11/23 4:00 AM) 140/80mm Hg *H* (05/10/23 10:22 PM) 150/98mm Hg *H* (05/10/23 8:48 PM) Respiratory Rate [16-30 br/min] 18 br/min (05/11/23 4:40 AM) 18 br/min (05/11/23 4:10 AM) 18 br/min (05/11/23 2:43 AM) Temperature [96.8-100.4 DegF] 98.0 DegF (05/10/23 8:48 PM) Mode of Delivery (Oxygen) Room air (05/11/23 4:00 AM) Room air (05/10/23 10:22 PM) Room air (05/10/23 8:48 PM) Blood pressure sites Arm, left (05/11/23 4:00 AM) Arm, right (05/10/23 10:22 PM) Arm, left (05/10/23 8:48 PM) Temperature Route Oral (05/10/23 8:48 PM) Dry Weight 88.5 kg (05/10/23 10:22 PM) 88.5 kg (05/10/23 8:48 PM) Weight Obtained Via Standing scale (05/10/23 8:48 PM) Dry Weight Obtained Via Standing scale (05/10/23 8:48 PM) Social History Social History Type Response Smoking Status Former smoker, quit more than 30 days ago entered on: 02/01/23 Sex Implantable Device List Procedure Provider Procedure Date Device Type Site Cystoscopy Retrograde Ureteral Stent Navneet Mary WILCOX, Bruno Pena 07/09/21 Unknown Ureter Device Identifier Serial Number Lot or Batch Number Manufacturing Date Expiration Date Distinct Identification Code MRI Safety Implantable Status Assigning Authority Unknown Unknown Unknown Unknown 07/09/21 Unknown Unknown Active Un known EKG study * Event Display: ECG 12-Lead Authored Date: Please click on pdf link to open report * Event Display: ECG 12-Lead Authored Date: Ventricular Rate: 76 BPM Atrial Rate: 76 BPM P-R Interval: 116 ms QRS Duration: 72 ms Q-T Interval: 394 ms QTC Calculation(Bazett): 443 ms P Letcher: 30 degrees R Letcher: 41 degrees T Letcher: 40 degrees Normal sinus rhythm Normal ECG When compared with ECG of 22-MAR-2023 03:30, No significant change was found Confirmed by LALITA WILLARD MD ([id number]) on 05/11/2023 8:57:39 PM [place]: LALITA WILLARD MD Note * Gonzales WILCOX, Magi Gutiérrez: PERFORM Event Display: Patient Education Leaflets Authored Date: [id number] Esophagitis ?? 89873 Esophagitis Do you often have burning pain in your chest? You may have esophagitis. This is when the lining of the esophagus becomes red and swollen (inflamed).??The esophagus is the tube that links your throat to your stomach. This sheet tells you more about esophagitis. It also talks about treatment. With esophagitis, the lining of the esophagus is inflamed. Main types of esophagitis Reflux esophagitis.??This is the more common type.??It's caused by??GERD (gastroesophageal reflux disease). Stomach contents and acid flow back up into the esophagus. This happens over and over. It leads to??inflammation.??You are more likely to get this type if you: ??? Are overweight ??? Have asthma ??? Smoke ??? Are ??? Vomit a lot ??? Take certain medicines, such as aspirin and other nonsteroidal anti- inflammatory drugs (NSAIDs) ??? Have a hiatal hernia Infectious esophagitis.??This is caused by an infection. You are more at risk for this kind if you have a weak immune system and poor nutrition. Using antibiotics can also raise your risk. The infection is often from: ??? A type of fungus (often kaylyn) ??? A virus, such as herpes simplex virus 1 (HSV-1) or cytomegalovirus (CMV) Eosinophilic esophagitis. Foods or other things around you can give you an allergic reaction. This causes an immune response. It may lead to this type of esophagitis. Pill-induced esophagitis. Certain types of medicines can cause inflammation and ulcers in the esophagus. Some of these are: ??? Doxycycline ??? Aspirin ??? NSAIDs ??? Alendronate ??? Potassium ??? Quinidine ??? Iron ?? Symptoms of esophagitis These symptoms can occur with esophagitis: ??? Pain when swallowing, or trouble swallowing ??? Pain behind your breastbone (heartburn) ??? Acid regurgitation ??? Chronic sore throat ??? Gum inflammation ??? Cavities ??? Bad breath ??? Nausea ??? Pain in your upper belly (abdomen) ??? Bleeding (indicated by bright red vomit or black, tarry stool) These symptoms occur more often with reflux esophagitis: ??? Coughing, wheezing, or asthma ??? Hoarseness or laryngitis ?? Diagnosis of esophagitis Your healthcare provider will ask about your past health, recent infections or illnesses, and your symptoms. You???ll also be examined. Sometimes you may need certain tests, such as: ??? Upper endoscopy.??A thin, flexible tube with a tiny light and camera is used. It's put into the mouth down into the esophagus. This lets the provider look for damage. A small sample of tissue (biopsy) may also be taken. The sample is sent to a lab for testing. ??? Upper gastrointestinal (GI) X-ray with barium.??An X-ray is done after you drink a substance called barium.??Barium may??make problems in the esophagus easier to see on an X-ray. ??? Esophageal pH.??A soft, thin tube is passed into the esophagus through the nose or mouth for 24 hours. It measures the acid level in the esophagus. ??? Esophageal manometry. A soft, thin tube is passed into the esophagus through the nose or mouth. It measures muscle contractions in the esophagus. ?? Treatment of esophagitis Medicines. Different medicines can help treat??esophagitis. The medicine used will depend on the type of esophagitis you have. Talk with your healthcare provider. Lifestyle changes. Making these changes can help reduce irritation and ease your symptoms: ??? Limit or don't eat: o Spicy foods (pepper, chili powder, casanova) o Hard foods (nuts, crackers, raw vegetables) o Acidic foods and drinks (tomatoes, citrus fruits and juices) o High-fat foods o Chocolate o Peppermint ??? Until you can swallow without pain, stick to a combined liquid and soft diet. Try foods such as cooked cereals, mashed potatoes, and soups. ??? Take small bites and chew your food well. ??? Don't eat large meals or heavy meals at night. Don't lie down within 2 to 3 hours of eating. ??? Get to or stay at a healthy weight. ??? Stay away from alcohol, caffeine, and smoking or tobacco products. ??? [place] your teeth at least twice a day and floss every day. ??? Raise your upper body by 4 to 6 inches when lying in bed. This can be done using a foam wedge. Or put blocks or bedrisers under the legs at the head of your bed. Surgery. This may be needed for severe reflux esophagitis.??Other noninvasive procedures to treat GERD and esophagitis are being studied.??Your provider can tell you more. ?? Why treatment is important Without treatment, esophagitis can get worse, especially if you have severe reflux esophagitis. Ongoing symptoms can cause scarring of the esophagus. Over time, scarring can lead to a narrowing of the esophagus (stricture). This can make it hard to pass food down to the stomach. As symptoms go on, they can also cause changes in the lining of the esophagus. These changes can put you at a slightly higher risk of cancer of the esophagus. ?? Last Reviewed Date: 2021 ?? [employer]. All rights reserved. This information is not intended as a substitute for professional medical care. Always follow your healthcare professional's instructions. ?? * [place] WILCOX, Magi Gutiérrez: PERFORM Event Display: Patient Education Leaflets Authored Date: [id number] Pancreatitis ?? [id number] Pancreatitis The pancreas is an organ in the??belly (abdomen). It secretes hormones and digestive juices (enzymes) into the stomach to aid with digestion and blood sugar levels. Pancreatitis is an inflammation ofthe pancreas. In many cases, it's caused when the duct that connects the pancreas and gallbladder is blocked by a gallstone.??Heavy alcohol use is another major cause.??Less common causes can includemedicines, trauma, certain medical procedures, viruses, and toxins. Sometimes the cause of pancreatitis can't be found.??Genetic testing is sometimes done in those cases, especially if there is a family history of pancreatic disease. Symptoms of pancreatitis include: ??? Severe abdominal pain? Nausea and vomiting ??? Severe indigestion ??? Racing heart ??? Fever If the pancreatitis becomes a chronic problem, diarrhea, chronic pain, weight loss, and poor nutrition can result. At first, pancreatitis may be treated in the hospital.??It may be diagnosed by history, exam, bloodtests, and sometimes imaging studies.?? While in the hospital, fluids and medicines can be provided. The underlying cause of the problem must also be treated to prevent further problems. If gallstones are the cause, you and your healthcare provider can discuss choices for treating them.??This oftenresults in gallbladder surgery. Sometimes another test must be done to clear the drainage ducts of a blocked gallstones.??If alcohol is the cause, talk with your healthcare provider about a program to help you stop drinking. Home care ??? Don't drink alcohol. ??? Rest in bed or sit up in a chair until you feel better. ??? Take medicines as prescribed. If you were given??an antibiotic for infection,??take it until it's gone, even if you feel better. Let your healthcare provider know if you vomit up your medicine. Tips for eating and drinking: ??? Try sipping small amounts of clear liquids often to prevent dehydration.? Your provider may advise clear liquids only for 1 or 2 days. This is to rest the pancreas. ??? When you start eating again, start with small amounts. Have small, more frequent meals rather than larger meals.??Low-fat meals are best. Fruits, vegetables, and whole grains are good choices. Stay away from fried and greasy foods. ?? Follow-up care Follow up with your healthcare provider as advised. ?? When to get medical care Call your healthcare provider right away if any of these occur: ??? Pain that continues or gets worse ??? Repeated vomiting ??? Dizziness, weakness ??? Fever of 100.4?? F (38?? C) or higher, or as advised by your provider ??? Severe muscle cramps ??? Yellowish coloring of the skin and eyes (jaundice) ?? Call 911 Call 911 if you have any of the following: ??? Vomiting blood or large amounts of blood in stool ??? Seizure ??? Loss of consciousness ?? Last Reviewed Date: 2022 ?? [id number] [employer]. All rights reserved. This information is not intended as a substitute for professional medical care. Always follow your healthcare professional's instructions. ?? * [place] WILCOX, Magi Gutiérrez: PERFORM Event Display: Patient Education Leaflets Authored Date: [id number] Abdominal Pain ?? 34278 Abdominal Pain Abdominal pain means pain in the stomach or belly area. Everyone has this kind of pain from time totime. In many cases it goes away on its own. Some types of abdominal pain can be from a serious problem. One example is appendicitis. So it???s important to know when to get help. Causes of abdominal pain There are many causes of abdominal pain. Common causes in adults include: ??? Constipation, diarrhea, or gas ??? Stomach and intestine inflammation from a virus or bacteria (gastroenteritis) ??? Stomach acid flowing back up into the esophagus (acid reflux) ??? Severe acid reflux, called gastroesophageal reflux disease (GERD) ??? A sore in the lining of the stomach or small intestine (peptic ulcer) ??? Inflammation of the gallbladder, liver,??or pancreas ??? Gallstones or kidney stones ??? Appendicitis? Intestinal blockage? An internal organ pushing through a muscle or other tissue (hernia) ??? Urinary tract infections ??? Menstrual cramps ??? Fibroids in the uterus ??? Ovarian cysts ??? Pelvic inflammatory disease in women ??? Endometriosis ??? Crohn's disease ??? Ulcerative colitis ??? Irritable bowel syndrome ?? Diagnosing the cause of abdominal pain Your healthcare provider will give you a physical exam. This is to help find the cause of your pain. If needed, you'll have tests. Belly pain has many possible causes. So it may take a little time tofind the reason for your pain. Give details about the type of pain you feel. Tell your provider if it's sharp or dull. Tell them where and when you feel the pain. Tell them what makes it better or worse. And tell them if you have other symptoms such as: ??? Fever ??? Tiredness ??? Upset stomach (nausea) ??? Vomiting ??? Changes in bathroom habits ??? Blood in the stool or black, tarry stool ??? Unexpected weight loss Tell your provider: ??? If you have a family history of stomach or intestinal problems or cancer ??? About your alcohol use and any illegal drug use ??? All medicines you take, both prescription and over the counter ??? What vitamins, herbs, and other supplements you take ?? Treating abdominal pain Some causes of pain need emergency medical care right away. These include appendicitis or a bowel blockage. Other problems can be treated with rest, fluids, or medicines. Your healthcare provider cangive you instructions. You may need treatment or self-care based on what's causing your pain. If you have vomiting or diarrhea,??sip water or other clear fluids. When you're ready to eat solid foods again, start lightly. Eat small amounts of [id number], low-fat foods. These include applesauce, toast, or crackers. ?? Call 911 Call 911??right away if you: ??? Can???t pass stool and are vomiting ??? Are vomiting blood ??? Have bloody diarrhea or black, tarry diarrhea ??? Have chest, neck, or shoulder pain ??? Feel like you might pass out (faint) ??? Have pain in your shoulder blades and nausea ??? Have sudden, severe belly pain ??? Have new, severe??pain unlike any you've felt before ??? Have a belly that is rigid, hard, and hurts to touch ?? When to call the healthcare provider Call your healthcare provider right away if you have any of these: ? Pain that's worse or not getting better ??? Bloating that's worse or not getting better ??? Diarrhea that's worse or not getting better ??? Fever of 100.4??F (38??C) or higher, or as advised ??? Weight loss for no reason ??? Continued lack of appetite ??? Blood in your stool ? How to prevent abdominal pain Here are some tips to help prevent abdominal pain: ??? Eat smaller amounts of food at each meal. ??? Don't eat greasy, fried, or other high-fat foods.??? Don't eat foods that give you gas. ??? Exercise regularly. ??? Drink plenty of fluids. To help prevent GERD symptoms: ??? Quit smoking. ??? Reduce alcohol and foods that increase stomachacid. ??? Don't use aspirin or nonsteroidal anti- inflammatory drugs (NSAIDs). ??? Lose excess weight. ??? Finish eating at least 2 hours before you go to bed or lie down. ??? Raise the head of your bed. ?? Last Reviewed Date: 2021 ?? [id number] [employer]. All rights reserved. This information is not intended as a substitute for professional medical care. Always follow your healthcare professional's instructions. ?? Patient Care team information Care Team Personnel Name: Dash WILCOX ([place]) , Paola Anderson Position: [facility] Outreach Member Role: PCP Address: Address: [address] [place] [phone] Name: Daina Ibrahim RN Position: [facility] ED RN W/OE and Tasks Member Role: Primary Care Nurse Name: Brie THOMPSON, Madeline Harvey Position: [facility] ED RN W/OE and Tasks Member Role: Primary Care Nurse Name: Teresa Carpio Position: [facility] RN Member Role: Primary Care Nurse Name: Inge Elizabeth RN Position: [facility] SN RN Member Role: Primary Care Nurse Name: Kelley Prasad RN Position: [facility] RN Member Role: Primary Care Nurse Name: Cindy Medeiros RN Position: [facility] RN Member Role: Primary Care Nurse Name: Linnette De La O RN Position: [facility] UNIX CONSULTANT Member Role: Primary Care Nurse Name: Anna DIAMOND POWDER MIXERAlina Position: [facility] Associate Professional Member Role: Primary Care Nurse Address: Address: [address] [place] [address]- [place] Name: Mary Anne Kilpatrick RN Position: [facility] MR W/ Merge Member Role: Primary Care Nurse Name: Nicole Hernández RN Position: [facility] RN Member Role: Primary Care Nurse Name: Douglas Harris Position: [facility] Cardio/Pulm Mgr ([facility]) Member Role: Primary Care Nurse Name: Lindsay Srinivasan CNM Position: [facility] Retail And Promotions Coordinator Member Role: Primary Care Nurse Address: Address: [address] [place] [address]- [place] Name: Larissa Olson [place] Position: [facility] RN Member Role: Primary Care Nurse Name: Karen Roa RN Position: [facility] ED RN W/OE and Tasks Member Role: Primary Care Nurse Name: Mary Alice Stevens RN Position: [facility] RN Member Role: Primary Care Nurse Name: Beverly Grey Position: [facility] RN Member Role: Primary Care Nurse Name: Alexy Geronimo RN Position: [facility] RN Member Role: Primary Care Nurse Name: Raúl Rudolph DO Position: [facility] FUNERAL SALES MANAGER MD Member Role: Lifetime FUNERAL SALES MANAGER Physician Address: Address: [address] [facility] [place] [address]- [place] Name: Evelyn Haynes RN Position: [facility] RN Member Role: Primary Care Nurse Name: Crissy Metzger RN Position: [facility] RN Member Role: Primary Care Nurse Name: Elisa Gilbert RN Position: [facility] RN Member Role: Primary Care Nurse Name: Corina Solorio RN Position: [facility] AMB Nurse Member Role: Primary Care Nurse Name: Shawnee Lane RN Position: [facility] ED RN W/OE and Tasks Member Role: Primary Care Nurse Name: Erna Douglass RN Position: [facility] SN RN Member Role: Primary Care Nurse Name: Keyana Ndiaye RN Position: [facility] Railway Track Plant Operator Member Role: Primary Care Nurse Name: Anabella Nicholson RN Position: [facility] Nurse Member Role: Primary Care Nurse Name: Brenda Tomas RN Position: [facility] Outreach Member Role: Primary Care Nurse Name: Ramona Ybarra RN Position: [facility] RN Member Role: Primary Care Nurse Address: Address: [address] [place] [id number] Name: Nancy Gallagher RN Position: [facility] [employer] Plant Operator Member Role: Primary Care Nurse Name: Evelyn Allen RN Position: [facility] OB RN Member Role: Primary Care Nurse Name: Jackelin Watt RN Position: [facility] RN Member Role: Primary Care Nurse Name: Raymundo Elizabeth RN Position: [facility] SN RN Member Role: Primary Care Nurse Name: Opal Calderon RN Position: [facility] RN Member Role: Primary Care Nurse Name: Yadiel Warner RN Position: [facility] SN RN Member Role: Primary Care Nurse Name: Magi Rolon MD Position: [facility] ED Medicine MD Member Role: ED Attending Physician Address: Address: [address] [place] [address]- Name: Beverly Nettles Position: [facility] ED OA Member Role: Box Packer Name: Kerry Romero RN Position: [facility] ED RN W/OE and Tasks Member Role: Patient Care Provider Care Team Related Persons Name: BARTOLOME IBRAHIM Address: home [address] [place], [place] Name: GIANLUCA IBRAHIM Address: home [address] [place] [address] Name: ABBIE IBRAHIM Address: home [address] [place], [place] Name: SIM CERDA Name: DIANE CERDA Address: [address] [address] Name: SOLO CORRIGAN Address: home [address] [place] [address] Name: SOLO FLORES Address: home [address] [place] [address] Name: RAYMUNDO MAYFIELD Address: home [address] [place] [address]
--- OUTSIDE RECORDS SUMMARY | 2024-01-27 11:23 | XMS_ITS | Continuity of Care Document ---
Author Organization [facility] Address [address] [place] [address]- Care Team Providers Care Hardwood Sawyer Name Role Phone Dash WILCOX ([place]), Paola Anderson Primary Care Physician Encounter [facility] Date(s): 01/13/23 - 05/13/23 [facility] [address] [place] [address] [place] [address]- Attending Physician: Angelina Wills MD Referring Physician: Rhys Williamson MD Allergies, Adverse Reactions, Alerts Substance Reaction [...] Other : Medications (Vitamin D3) Cholecalciferol 400 SENIOR CARE units/mL oral syringe 1 mL = 10 [...] tablet, 3 Refills, Maintenance, 08/17/22 15:43:00 EST, [facility] #[id number], 170, cm, 05/13/22 17:18:00 EDT, Height, 88.8, [...] 01/08/21 13:59:00 EDT, Route to Pharmacy Electronically, [facility] #[id number], Partial fill upon patient request if the prescription is for a sched... Start Date: 01/08/21 Status: Ordered famotidine 20 mg oral tablet 20 mg, 1, tablet, By Mouth, Daily at bedtime, # 30 tablet, Refills 0, Tot. Refills 0, Maintenance, 05/13/23 10:33:00 EDT, Route to Pharmacy Electronically, [facility] #[id number], Partial fill upon patient request if the prescription is for a jose... Start Date: 05/13/23 Stop Date: 06/12/23 Status: Ordered Flonase 50 mcg/inh nasal spray 2 sprays, Nares, Both, 2 times a day, PRN Congestion, # 16 Gm, 0 Refills, Maintenance, 08/20/20 11:17:00 EST, [place], [facility] #[id number], Partial fill upon patient request if the prescriptionis for a schedule II opioid drug., 170, cm, ... Start Date: 08/20/20 Status: Ordered gabapentin 300 mg oral capsule 300 mg, 1, capsule, By Mouth, 2 times a day, # 60 capsule, Refills 4, Tot. Refills 4, Maintenance, 11/11/22 15:13:00 EST, Route to Pharmacy Electronically, [facility] #[id number], Partial fill upon patient request if the prescription is for a jose... Start Date: 11/11/22 Stop Date: 04/10/23 Status: Ordered lidocaine 1.8% topical film 1 [...] opioid drug. Start Date: 05/10/23 Status: Ordered Omeprazole = 20 mg, By Mouth, Daily, [...] 8 hours, PRN Nausea & Vomiting, # 9 tablet, 0 Refills, Maintenance, 05/13/23 10:33:00 EDT, Tablet, [facility] #[id number], Partial fill upon patient request if the prescription is for a schedule II opioid drug., 1... Start Date: 05/13/23 Stop Date: 05/16/23 Status: Ordered prazosin 2 mg oral capsule 2 capsule = 4 mg, By Mouth, Daily at bedtime, if PO intake is low or BP low below 110/70 only take one cap, # 60 capsule, 4 Refills, Maintenance, 11/11/22 15:17:00 EST, [facility] #[id number], Partial fill upon patient request if the [...] 03/10/23 15:36:00 EDT, Route to Pharmacy Electronically, [facility] #[id number], Partial fill upon patient request if the [...] Refills, Soft Stop, 04/20/22 10:54:00 EDT, [place], [facility] #[id number], Partial fill upon patient... Start Date: 04/20/22 [...] thromboembolism), chronic Confirmed Active 1MRI compatible 2IAROGENIC Social History Social [...] information Care Team Personnel Name: Dash WILCOX ([place]) , Paola Anderson Position: [facility] Outreach Member Role: PCP Address: Address: [address] [place] [phone] [place] Name: Daina Ibrahim RN Position: [facility] ED RN W/OE and Tasks Member Role: Primary Care Nurse Name: Madeline Baird RN Position: [facility] ED RN W/OE and Tasks Member Role: Primary Care Nurse Name: Teresa Carpio Position: [facility] RN Member Role: Primary Care Nurse Name: Inge Elizabeth RN Position: [facility] SN RN Member Role: Primary Care Nurse Name: Kelley Prasad RN Position: [facility] RN Member Role: Primary Care Nurse Name: Cindy Medeiros RN Position: [facility] RN Member Role: Primary Care Nurse Name: Linnette De La O RN Position: [facility] EMPLOYEE RELATIONS ASSISTANT Member Role: Primary Care Nurse Name: Alina Castillo NP Position: [facility] Associate Professional Member Role: Primary Care Nurse Address: Address: [address] [facility] [place] [address]- [place] Name: Mary Anne Kilpatrick RN Position: [facility] MR W/ Merge Member Role: Primary Care Nurse Name: Nicole Hernández RN Position: [facility] RN Member Role: Primary Care Nurse Name: Douglas Harris Position: [facility] Cardio/Pulm Mgr ([facility]) Member Role: Primary Care Nurse Name: Lindsay Srinivasan CNM Position: [facility] Green Plumber Member Role: Primary Care Nurse Address: Address: [address] [facility] [place] [address]- [place] Name: Larissa Olson [place] Position: [facility] RN Member Role: Primary Care Nurse Name: Karen Roa RN Position: [facility] ED RN W/OE and Tasks Member Role: Primary Care Nurse Name: Mary Alice Stevens RN Position: [facility] RN Member Role: Primary Care Nurse Name: Beverly Grey Position: [facility] RN Member Role: Primary Care Nurse Name: Alexy Geronimo RN Position: [facility] RN Member Role: Primary Care Nurse Name: Raúl Rudolph DO Position: [facility] MIMEOGRAPH OPERATOR MD Member Role: Lifetime MIMEOGRAPH OPERATOR Physician Address: Address: [address] [facility] [place] [address]- [place] Name: Evelyn Haynes RN Position: [facility] RN Member Role: Primary Care Nurse Name: Crissy Metzger RN Position: [facility] RN Member Role: Primary Care Nurse Name: Elisa Gilbert RN Position: [facility] RN Member Role: Primary Care Nurse Name: Corina Solorio RN Position: [facility] Nurse Member Role: Primary Care Nurse Name: Shawnee Lane RN Position: [facility] ED RN W/OE and Tasks Member Role: Primary Care Nurse Name: Erna Douglass RN Position: [facility] SN RN Member Role: Primary Care Nurse Name: Keyana Ndiaye RN Position: [facility] Hospital Tree Climber Member Role: Primary Care Nurse Name: Anabella Nicholson RN Position: [facility] AMB Nurse Member Role: Primary Care Nurse Name: Brenda Tomas RN Position: [facility] Outreach Member Role: Primary Care Nurse Name: Ramona Ybarra RN Position: [facility] RN Member Role: Primary Care Nurse Address: Address: [address] [place] [address]- Name: Nancy Gallagher RN Position: [facility] Hospital Tree Climber Member Role: Primary Care Nurse Name: Evelyn Allen RN Position: [facility] OB RN Member Role: Primary Care Nurse Name: Jackelin Watt RN Position: [facility] RN Member Role: Primary Care Nurse Name: Raymundo Elizabeth RN Position: [facility] SN RN Member Role: Primary Care Nurse Name: Opal Calderon RN Position: [facility] RN Member Role: Primary Care Nurse Name: Timmy RNYadiel Position: [facility] SN RN Member Role: Primary Care Nurse Care Team Related Persons Name: BARTOLOME IBRAHIM Address: [address] [place] [address] Name: GIANLUCA IBRAHIM Address: [address] [place], [place] Name: ABBIE IBRAHIM Address: [address] [place] [address] Name: SIM CERDA Name: DIANE CERDA Address: [address] [place] [address] Name: SOLO CORRIGAN Address: [address] [place] [address] Name: SOLO FLORES Address: [address] [place] [address] Name: RAYMUNDO MAYFIELD Address: [address] [place] [address]
--- OUTSIDE RECORDS SUMMARY | 2024-01-27 11:23 | XMS_ITS | Continuity of Care Document ---
Author Organization [facility] Address [address] [place] [address]- Care Team Providers Care Tag Machine Operator Name Role Phone Maranda WILCOX, Silvio Martinez Primary Care Physician Encounter [facility] Date(s): 06/06/20 - 07/06/20 [facility] [address] [place] [address]- [facility] Allergies, Adverse Reactions, Alerts Substance [...] Refills 11, Tot. Refills 11, Maintenance, [facility]: [id number], 05/08/20 16:20:00 EDT, Supply, 169, cm, 04/15/20 [...] capsule, 1 Refills, Maintenance, 10/21/19 11:17:00 EST, [facility] #[id number], 1 capsule By Mouth 3 times a [...] 04/09/21 14:58:00 EDT, 04/09/20 14:57:00 EDT, Tablet, [facility] #[id number], 169, cm, 04/05/20 12:55:00 EDT, Height, 85, [...] tablet, 3 Refills, Maintenance, 05/28/20 11:56:00 EDT, [facility] #[id number], 170, cm, 05/27/20 0:11:00 EDT, Height,90.4, kg, [...] Acute 04/30/21 16:58:00 EDT, 04/30/20 16:57:00 EDT, [facility] #[id number], 169, cm, 04/15/20 17:38:00 EDT, Height, 85, kg, 03/15/20 2:33:00 EDT, Dry Weight Start Date: 04/30/20 Stop Date: 04/30/21 Status: Ordered methylprednisolone 2 gm injectable powder for injection See Instructions, inject 4 grams IM for adrenal crisis, # 48 Gm, 11 Refills, Acute 06/08/21 12:08:00 EDT, 05/03/21 10:04:00 EDT, [facility]/pharmacy #1111, 169, cm, 04/15/20 17:38:00 EDT, Height, 85, kg, 03/15/20 2:33:00 EDT, Dry Weight Start Date: 05/03/21 Stop Date: 06/08/21 Status: Ordered methylprednisolone 2 gm injectable powder for injection See Instructions, inject 4 grams IM for adrenal crisis, # 48 Gm, 3 Refills, Acute 05/03/21 10:04:00EDT, 05/03/20 10:03:00 EDT, [facility] #[id number], 169, cm, 04/15/20 17:38:00 EDT, Height, 85, kg, 03/15/20 2:33:00 EDT, Dry Weight Start Date: 05/03/20 Stop Date: 05/03/21 Status: Ordered methylprednisolone 2 gm injectable powder for injection See Instructions, inject 4 grams IM for adrenal crisis, # 48 Gm, 3 Refills, Acute 05/03/21 11:58:00EDT, 05/03/21 10:04:00 EDT, [facility], 169, cm, 04/15/20 [...] 0 Refills, Maintenance, 06/18/20 16:48:00 EDT, Tablet, [facility] #[id number], 170, cm, 06/18/20 15:14:00 EDT, Height, 90.4, [...] 11 Refills, Soft Stop, 05/03/20 16:07:00 EDT, [facility] #[id number], 169, cm, 04/15/20 17:38:00 EDT, Height, 85, [...] Refills, Maintenance, 12/05/19 20:49:00 EDT, DIS Tablet, [facility] #[id number], 170, cm, 12/05/19 19:19:00 EDT, Height, 88.7, [...]
--- OUTSIDE RECORDS SUMMARY | 2024-01-27 11:23 | XMS_ITS | Continuity of Care Document ---
Author Organization [facility] Address [address] [place] [address]- Care Team Providers Care Wash Test Checker Name Role Phone Maranda WILCOX, Silvio Martinez Primary Care Physician Encounter [facility] Date(s): 05/16/20 - 06/15/20 [facility] [address] [place] [address]- [facility] Allergies, Adverse Reactions, Alerts Substance Reaction [...] mL, Refills 11, Tot. Refills 11, Maintenance, [facility]: [id number], 05/08/20 16:20:00 EDT, Supply, 169, cm, 04/15/20 [...] capsule, 1 Refills, Maintenance, 10/21/19 11:17:00 EST, [facility] #[id number], 1 capsule By Mouth 3 times a [...] 04/09/21 14:58:00 EDT, 04/09/20 14:57:00 EDT, Tablet, [facility] #47903, 169, cm, 04/05/20 12:55:00 EDT, Height, 85, [...] tablet, 3 Refills, Maintenance, 05/28/20 11:56:00 EDT, [facility] #[id number], 170, cm, 05/27/20 0:11:00 EDT, Height,90.4, kg, [...] Acute 04/30/21 16:58:00 EDT, 04/30/20 16:57:00 EDT, [facility] #[id number], 169, cm, 04/15/20 17:38:00 EDT, Height, 85, kg, 03/15/20 2:33:00 EDT, Dry Weight Start Date: 04/30/20 Stop Date: 04/30/21 Status: Ordered methylprednisolone 2 gm injectable powder for injection See Instructions, inject 4 grams IM for adrenal crisis, # 48 Gm, 11 Refills, Acute 06/08/21 12:08:00 EDT, 05/03/21 10:04:00 EDT, [facility]/pharmacy #1111, 169, cm, 04/15/20 17:38:00 EDT, Height, 85, kg, 03/15/20 2:33:00 EDT, Dry Weight Start Date: 05/03/21 Stop Date: 06/08/21 Status: Ordered methylprednisolone 2 gm injectable powder for injection See Instructions, inject 4 grams IM for adrenal crisis, # 48 Gm, 3 Refills, Acute 05/03/21 10:04:00EDT, 05/03/20 10:03:00 EDT, [facility] #[id number], 169, cm, 04/15/20 17:38:00 EDT, Height, 85, kg, 03/15/20 2:33:00 EDT, Dry Weight Start Date: 05/03/20 Stop Date: 05/03/21 Status: Ordered methylprednisolone 2 gm injectable powder for injection See Instructions, inject 4 grams IM for adrenal crisis, # 48 Gm, 3 Refills, Acute 05/03/21 11:58:00EDT, 05/03/21 10:04:00 EDT, [facility], 169, cm, 04/15/20 17:38:00 EDT, Height, 85, kg, 03/15/20 2:33:00 EDT, Dry Weight Start Date: 05/03/21 Stop Date: 05/03/21 Status: Ordered Nicotine = 21 mg, Topically, Daily, 0 Refills, Maintenance, 03/08/20 16:52:00 EDT, Patch Start Date: 03/08/20 Status: Ordered oxyCODONE 10 mg oral tablet 1 tablet = 10 mg, By Mouth, Every 8 hours, Pt verbally instructed to take 2 tabs by PCP office for kidney stones. Thank you., # 6 tablet, 0 Refills, Acute 06/16/20 13:20:00 EDT, 06/14/20 16:06:00 EDT, Tablet, Partial fill upon patient request Start Date: 06/14/20 Stop Date: 06/16/20 Status: Ordered Polymyxin B Ophthalmic See Instructions, 0 Refills, Maintenance, 03/08/20 20:05:00 EDT Start Date: 03/08/20 Status: Ordered Senna = 8.5 mg, By Mouth, 2 times a day, 0 Refills, Maintenance, 11/06/16 11:22:55 Start Date: 11/06/16 Status: Ordered Solu-CORTEF 100 mg preservative-free injection = 100 mg, Intramuscular, Once, prn adrenal crisis, # 5 each, 11 Refills, Soft Stop, 05/03/20 16:07:00 EDT, [facility] #[id number], 169, cm, 04/15/20 17:38:00 EDT, Height, 85, [...] Refills, Maintenance, 12/05/19 20:49:00 EDT, DIS Tablet, [facility] #51463, 170, cm, 12/05/19 19:19:00 EDT, Height, 88.7, [...]
--- OUTSIDE RECORDS SUMMARY | 2024-01-27 11:23 | XMS_ITS | Continuity of Care Document ---
Author Organization [facility] Address [address] [place] [address]- Care Team Providers Care Finishing Wire Sawyer Name Role Phone Agustín Faria MD Primary Care Physician Encounter [facility] Date(s): 10/09/19 - 10/09/[address] [address]- [facility] Discharge Disposition: A-D/C Home Attending Physician: Gurmeet Gross MD Admitting Physician: Gurmeet Gross MD Referring Physician: Not on Staff, Referring [...] 02/21/19 8:58:39 EDT, Route to Pharmacy Electronically, [id number], [facility] Start Date: 02/21/19 Stop Date: 04/22/19 [...] 08/24/19 9:15:39 EST, Route to Pharmacy Electronically, [id number], [facility] #[id number], 170, cm, 08/24/19 8:38:44 EST, H... Start [...] 0 Refills, Maintenance, 09/28/19 0:43:00 EST, Tablet, [facility] #54201, 171, cm, 09/27/19 22:45:00 EST, Height, 92.2, [...] 0 Refills, Soft Stop, 09/28/19 0:51:00 EST, [facility] #14577, 171, cm, 09/27/19 22:45:00 EST, Height, 92.2, [...] 02/21/19 8:59:46 EDT, Route to Pharmacy Electronically, [id number], [facility] Start Date: 02/21/19 Stop Date: 09/19/19 [...] Vitamin B6 deficiency(Confirmed) Active 1MRI compatible 2IAROGENIC Results Radiology Reports * Exam Date Time Procedure Performing Provider Status 10/09/19 1:55 PM Toe 2nd Left Foot Dori Mariano; Auth (Verified) Notes: (Toe 2nd Left Foot) Reason For Exam: Trauma RESULT: Toe 2nd Left Foot Toe 2nd Left Foot, 3 views Reason: Trauma; Clinical Question(s): Fracture; Hx of Present Illness: Horse stepped on L foot. Pt has been having pain to the 2nd toe of the left foot COMPARISON: 09/08/2016. FINDINGS: There is a nondisplaced nearly transverse fracture through the distal metaphysis of the second proximal phalanx, with no angulation No arthritic changes. Normal soft tissues. IMPRESSION: Essentially non displaced and non angulated fracture, distal aspect second proximal phalanx. This final report is concordant with the ER interpretation documented in [facility]. WSN: [id number] Dictated By: Aleksandr Hanks MD Dictated Date/Time: 10/09/19 3:45 pm Reviewed By: Aleksandr Hanks MD Signed By: Aleksandr Hanks MD Signed Date/Time: 10/09/19 3:45 pm Transcribed By: DIANE Transcribed Date/Time: 10/09/19 3:41 pm Vital Signs Most recent to oldest [Reference Range]: 1 Height 170 cm (10/09/19 1:08 PM) Weight 90 kg (10/09/19 1:08 PM) Oxygen Saturation [94-100 %] 98 % (10/09/19 1:08 PM) Pulse Rate [55-90 bpm] 95 bpm *H* (10/09/19 1:08 PM) Blood Pressure [90-138/55-84 mm Hg] 130/ 86mm Hg (10/09/19 1:08 PM) Respiratory Rate [16-30 br/min] 16 br/mi n (10/09/19 1:08 PM) Temperature [96.8-100.4 DegF] 97.9 DegF (10/09/19 1:08 PM) Mode of Delivery (Oxygen) Room air (10/09/19 1:08 PM) Blood pressure sites Arm, left (10/09/19 1:08 PM) Temperature Route Oral (10/09/19 1:08 PM) Dry Weight 90 kg (10/09/19 1:08 PM) Social History Social History Type Response Smoking Status 10 or more cigarette s (1/2 pack or more)/day in last 30 days entered on: 08/06/19 Sex
--- OUTSIDE RECORDS SUMMARY | 2024-01-27 11:23 | XMS_ITS | Continuity of Care Document ---
Author Organization [facility] Address [address] [place] [address]- Care Team Providers Care Women'S Studies Professor Name Role Phone Agustín Faria MD Primary Care Physician [phone] Encounter [facility] Date(s): 05/31/23 - 05/31/[address] [address]- Discharge Disposition: A-D/C Home Attending Physician: Kenneth Baker DO Admitting Physician: Kenneth Baker DO Referring Physician: Not on Staff, Referring MD Allergies, Adverse Reactions, Alerts Substance Reaction Severity Status propranolol Rash Active droperidol-fentanyl 1 Active Xarelto rash Active Zoloft tachycardia n/v Active Nardil Palpitations - rapid N&V - Nausea and vomiting C/O - a headache Active Inderal n/v,tachcardia Active Cefzil Hives Active Haldol Active Compazine severe anxiety Hives Active Reglan severe anxiety~panic Active Lexapro n/v Active 1Only allergic to droperidol NOT fentanyl. It won't let me add only the droperidol. RXN was sucidal thoughts with tremors Immunizations Given and Recorded Vaccine Date Status Refusal Reason influenza virus vaccine, inactivated 1 05/16/20 Re corded influenza virus vaccine, inactivated 2 06/23/16 Gi gualberto influenza virus vaccine, inactivated 3 06/29/13 Gi ugalberto influenza virus vaccine, inactivated 05/24/12 Give n tetanus/diphtheria/pertussis, acel(Tdap) 01/02/18 Given pneumococcal 23-valent vaccine 4 12/10/15 Given Adacel (Tdap) (oldterm) 04/30/09 Recorded tetanus-diphtheria toxoids (Td) 06/05/03 Recorded 1Result Comment: GIVEN AT PHARM 2Result Comment: manufactuer: afluria 3Admin Note: vis 4Early/Late Reason: Other : Medications (Vitamin D3) Cholecalciferol 400 ALF units/mL oral syringe 1 mL = 10 [...] EDT, Dry... Start Date: 05/27/23 Status: Ordered Albuterol (Eqv-ProAir HFA) 90 mcg/inh [...] tablet, 3 Refills, Maintenance, 08/17/22 15:43:00 EST, [facility] #[id number], 170, cm, 05/13/22 17:18:00 EDT, Height, 88.8, [...] 01/08/21 13:59:00 EDT, Route to Pharmacy Electronically, [facility] #[id number], Partial fill upon patient request if the prescription is for a sched... Start Date: 01/08/21 Status: Ordered Flonase 50 mcg/inh nasal spray 2 sprays, Nares, Both, 2 times a day, PRN Congestion, # 16 Gm, 0 Refills, Maintenance, 08/20/20 11:17:00 EST, [place], [facility] #[id number], Partial fill upon patient request if the prescriptionis for a schedule II opioid drug., 170, cm, 2... Start Date: 08/20/20 Status: Ordered gabapentin 300 mg oral capsule See Instructions, 1 cap in the AM, 2 in the afternoon and 2 at bedtime, # 1 each, Refills 4, Tot. Refills 4, Maintenance, 11/11/22 15:13:00 EST, Instructions Replace Required Details, Route to Pharmacy Electronically, [facility] #[id number], Part... Start Date: 11/11/22 Status: Ordered Insulin [...] 05/14/23 20:59:00 EDT, Route to Pharmacy Electronically, [facility] #[id number], Partial fill upon patient request if the [...] 0 Refills, Maintenance, 05/13/23 10:33:00 EDT, Tablet, [facility] #[id number], Partial fill upon patient request if the prescription is for a schedule II opioid drug., 1... Start Date: 05/13/23 Stop Date: 05/16/23 Status: Ordered prazosin 2 mg oral capsule 2 capsule = 4 mg, By Mouth, Daily at bedtime, if PO intake is low or BP low below 110/70 only take one cap, # 60 capsule, 4 Refills, Maintenance, 11/11/22 15:17:00 EST, [facility] #[id number], Partial fill upon patient request if the prescription... Start Date: 11/11/22 Stop Date: 04/10/23 Status: Ordered PROzac 20 mg oral capsule 40 mg, 2, capsule, By Mouth, Daily, # 60 capsule, Refills 4, Tot. Refills 4, Maintenance, 03/10/23 15:36:00 EDT, Route to Pharmacy Electronically, [facility] #[id number], Partial fill upon patient request if the [...] Refills, Soft Stop, 05/27/23 14:16:00 EDT, Powder, [facility] #[id number], Partial fill upon patient... Start Date: 05/27/23 Status: Ordered spironolactone 25 mg oral tablet 25 mg, 1, tablet, By Mouth, Daily, # 30 tablet, Refills 3, Tot. 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 MDD (major depressive disorder), recurrent episode, mild Confirmed Active SVT (supraventricular tachycardia) Confirmed Active Arm DVT (deep venous thromboembolism), chronic Confirmed Active 1MRI compatible 2IAROGENIC Vital Signs Most recent to oldest [Reference Range]: 1 2 3 Height 170 cm (05/31/23 7:24 AM) 170 cm (05/31/23 3:04 AM) Weight 85 kg (05/31/23 7:24 AM) 85 kg (05/31/23 3:04 AM) Oxygen Saturation [94-100 %] 99 % (05/31/23 7:24 AM) 100 % (05/31/23 6:00 AM) 100 % (05/31/23 2:38 AM) Pulse Rate [55-90 bpm] 68 bpm (05/31/23 7:24 AM) 65 bpm (05/31/23 6:00 AM) 67 bpm (05/31/23 2:38 AM) Body Mass Index [18.5-24.99 kg/m2] 29.41 kg/m2 *H* (05/31/23 7:24 AM) Blood Pressure [90-138/55-84 mm Hg] 110/78mm Hg (05/31/23 7:24 AM) 95/60mm Hg (05/31/23 6:00 AM) 111/67mm Hg (05/31/23 2:38 AM) Respiratory Rate [16-30 br/min] 18 br/min (05/31/23 7:24 AM) 18 br/min (05/31/23 6:00 AM) 18 br/min (05/31/23 2:38 AM) Temperature [96.8-100.4 DegF] 97.6 DegF (05/31/23 2:38 AM) Mode of Delivery (Oxygen) Room air (05/31/23 7:24 AM) Room air (05/31/23 6:00 AM) Room air (05/31/23 2:38 AM) Blood pressure sites Arm, left (05/31/23 7:24 AM) Arm, left (05/31/23 6:00 AM) Arm, left (05/31/23 2:38 AM) Temperature Route Temporal (05/31/23 2:38 AM) Dry Weight 85 kg (05/31/23 7:24 AM) 85 kg (05/31/23 3:04 AM) Weight Obtained Via Patient/family state d (05/31/23 3:04 AM) Social History Social History Type Response [...] Care team information Care Team Personnel Name: Daina Ibrahim RN Position: [facility] ED RN W/OE and Tasks Member Role: Primary Care Nurse Name: Madeline Baird RN Position: [facility] ED RN W/OE and Tasks Member Role: Primary Care Nurse Name: Teresa Carpio Position: [facility] RN Member Role: Primary Care Nurse Name: Inge Elizabeth RN Position: [facility] SN RN Member Role: Primary Care Nurse Name: Kelley Prasad RN Position: [facility] RN Member Role: Primary Care Nurse Name: Cindy Medeiros RN Position: [facility] RN Member Role: Primary Care Nurse Name: Linnette De La O RN Position: [facility] BAKERY HELPER Member Role: Primary Care Nurse Name: Alina Castillo NP Position: [facility] Associate Professional Member Role: Primary Care Nurse Address: Address: [address] [facility] [place] [address]- [place] Name: Mary Anne Kilpatrick RN Position: [facility] MR W/ Merge Member Role: Primary Care Nurse Name: Agustín Faria MD Position: [facility] Outreach Member Role: PCP Address: Address: [address] [facility] [address] Ag[place]ín [place] [address]- [place] Name: Nicole Hernández RN Position: [facility] RN Member Role: Primary Care Nurse Name: Douglas Harris Position: [facility] Cardio/Pulm Mgr ([facility]) Member Role: Primary Care Nurse Name: Lindsay Srinivasan CNM Position: [facility] Polysilicon Preparation Worker Member Role: Primary Care Nurse Address: Address: [address] [place] [address] [place] [address]- [place] Name: Larissa Olson [place] Position: [facility] RN Member Role: Primary Care Nurse Name: Karen Roa RN Position: [facility] ED RN W/OE and Tasks Member Role: Primary Care Nurse Name: Mary Alice Stevens RN Position: [facility] RN Member Role: Primary Care Nurse Name: Beverly Grey Position: [facility] RN Member Role: Primary Care Nurse Name: Alexy Geronimo RN Position: [facility] RN Member Role: Primary Care Nurse Name: Raúl Rudolph DO Position: [facility] LOOM TUNER MD Member Role: [employer] LOOM TUNER Physician Address: Address: [address] [facility] [place] [address]- [place] Name: Evelyn Haynes RN Position: [facility] RN Member Role: Primary Care Nurse Name: Crissy Metzger RN Position: [facility] RN Member Role: Primary Care Nurse Name: Elisa Gilbert RN Position: [facility] RN Member Role: Primary Care Nurse Name: Corina Solorio RN Position: [facility] AMB Nurse Member Role: Primary Care Nurse Name: Shawnee Lane RN Position: [facility] ED RN W/OE and Tasks Member Role: Primary Care Nurse Name: Erna Douglass RN Position: [facility] SN RN Member Role: Primary Care Nurse Name: Keyana Ndiaye RN Position: [facility] Superintendent Overhead Distribution Member Role: Primary Care Nurse Name: Anabella Nicholson RN Position: [facility] AMB Nurse Member Role: Primary Care Nurse Name: Brenda Tomas RN Position: [facility] Outreach Member Role: Primary Care Nurse Name: Ramona Ybarra RN Position: [facility] RN Member Role: Primary Care Nurse Address: Address: [address] [place] [address]- Name: Nancy Gallagher RN Position: [facility] Superintendent Overhead Distribution Member Role: Primary Care Nurse Name: Evelyn Allen RN Position: [facility] OB RN Member Role: Primary Care Nurse Name: Jackelin Watt RN Position: [facility] RN Member Role: Primary Care Nurse Name: Raymundo Elizabeth RN Position: [facility] SN RN Member Role: Primary Care Nurse Name: Opal Calderon RN Position: [facility] RN Member Role: Primary Care Nurse Name: Yadiel Warner RN Position: [facility] SN RN Member Role: Primary Care Nurse Name: Saravanan Torres Position: [facility] ED TA [facility] Member Role: Sheet Metal Worker Name: Vanesa Watson RN Position: [facility] ED RN W/OE and Tasks Member Role: Patient Care Provider Name: Kenneth Baker DO Position: [facility] ED Medicine MD Member Role: Admitting Physician Address: Address: [address] [place] [address] [place] [address]- Care Team Related Persons Name: BARTOLOME IBRAHIM Address: home [address] [place], [place] Name: GIANLUCA IBRAHIM Address: [address] [place], [place] Name: ABBIE IBRAHIM Address: [address] [place], [place] Name: SIM CERDA Name: DIANE CERDA Address: home [address] [place] [address] Name: SOLO CORRIGAN Address: [address] [place], [place] Name: SOLO FLORES Address: [address], [place] Name: RAYMUNDO MAYFIELD Address: home [address] [place] [address]
--- OUTSIDE RECORDS SUMMARY | 2024-01-27 11:23 | XMS_ITS | Continuity of Care Document ---
Author Organization [facility] [place] Address [address] [place] [address]- Care Team Providers Care Scheduling Representative Name Role Phone Dash WILCOX ([place]), Paola Anderson Primary Care Physician Encounter [facility] Date(s): 04/13/23 - 05/13/[address] [id number] Attending Physician: Maximo Cano Admitting Physician: Maximo Cano Referring Physician: Maximo Cano Referring Physician: Vero Cottrell Allergies, Adverse Reactions, Alerts Substance Reaction Severity [...] Other : Medications (Vitamin D3) Cholecalciferol 400 NURSING HOME units/mL oral syringe 1 mL = 10 [...] tablet, 3 Refills, Maintenance, 08/17/22 15:43:00 EST, [facility] #[id number], 170, cm, 05/13/22 17:18:00 EDT, Height, 88.8, [...] 01/08/21 13:59:00 EDT, Route to Pharmacy Electronically, [facility] #[id number], Partial fill upon patient request if the prescription is for a sched... Start Date: 01/08/21 Status: Ordered famotidine 20 mg oral tablet 20 mg, 1, tablet, By Mouth, Daily at bedtime, # 30 tablet, Refills 0, Tot. Refills 0, Maintenance, 05/13/23 10:33:00 EDT, Route to Pharmacy Electronically, [facility] #[id number], Partial fill upon patient request if the prescription is for a jose... Start Date: 05/13/23 Stop Date: 06/12/23 Status: Ordered Flonase 50 mcg/inh nasal spray 2 sprays, Nares, Both, 2 times a day, PRN Congestion, # 16 Gm, 0 Refills, Maintenance, 08/20/20 11:17:00 EST, [place], [facility] #[id number], Partial fill upon patient request if the prescriptionis for a schedule II opioid drug., 170, cm, ... Start Date: 08/20/20 Status: Ordered gabapentin 300 mg oral capsule 300 mg, 1, capsule, By Mouth, 2 times a day, # 60 capsule, Refills 4, Tot. Refills 4, Maintenance, 11/11/22 15:13:00 EST, Route to Pharmacy Electronically, [facility] #[id number], Partial fill upon patient request if the [...] 0 Refills, Maintenance, 05/13/23 10:33:00 EDT, Tablet, [facility] #[id number], Partial fill upon patient request if the prescription is for a schedule II opioid drug., 1... Start Date: 05/13/23 Stop Date: 05/16/23 Status: Ordered prazosin 2 mg oral capsule 2 capsule = 4 mg, By Mouth, Daily at bedtime, if PO intake is low or BP low below 110/70 only take one cap, # 60 capsule, 4 Refills, Maintenance, 11/11/22 15:17:00 EST, [facility] #[id number], Partial fill upon patient request if the [...] 03/10/23 15:36:00 EDT, Route to Pharmacy Electronically, [facility] #[id number], Partial fill upon patient request if the [...] Refills, Soft Stop, 04/20/22 10:54:00 EDT, Powder, [facility] #[id number], Partial fill upon patient... Start Date: 04/20/22 [...] Site Cystoscopy Retrograde Ureteral Stent Navneet Mary WLICOX, Bruno Pena 07/09/21 Unknown Ureter Device Identifier Serial Number Lot or Batch Number Manufacturing Date Expiration Date Distinct Identification Code MRI Safety Implantable Status Assigning Authority Unknown Unknown Unknown Unknown 07/09/21 Unknown Unknown Active Un known Patient Care team information Care Team Personnel Name: Dash WILCOX ([place]) , Paola Anderson Position: [facility] Outreach Member Role: PCP Address: Address: [address] [place] [id number] Name: Daina Ibrahim RN Position: [facility] ED RN W/OE and Tasks Member Role: Primary Care Nurse Name: Madeline Baird RN Position: [facility] ED RN W/OE and Tasks Member Role: Primary Care Nurse Name: Teresa Carpio Position: [facility] RN Member Role: Primary Care Nurse Name: Inge Elizabeth RN Position: [facility] SN RN Member Role: Primary Care Nurse Name: Kelley Prasad RN Position: [facility] RN Member Role: Primary Care Nurse Name: Cindy Medeiros RN Position: [facility] RN Member Role: Primary Care Nurse Name: Linnette De La O RN Position: [facility] COILED COIL INSPECTOR Member Role: Primary Care Nurse Name: Alina Castillo NP Position: [facility] Associate Professional Member Role: Primary Care Nurse Address: Address: [address] [facility] [place] [address]- [place] Name: Mary Anne Kilpatrick RN Position: [facility] MR W/ Merge Member Role: Primary Care Nurse Name: Nicole Hernández RN Position: [facility] RN Member Role: Primary Care Nurse Name: Douglas Harris Position: [facility] Cardio/Pulm Mgr ([facility]) Member Role: Primary Care Nurse Name: Lindsay Srinivasan CNM Position: [facility] Sheet Metal Former Member Role: Primary Care Nurse Address: Address: [address] [place] [address]- [place] Name: Larissa Olson [place] Position: [facility] RN Member Role: Primary Care Nurse Name: Karen Roa RN Position: [facility] ED RN W/OE and Tasks Member Role: Primary Care Nurse Name: Mary Alice Stevens RN Position: [facility] RN Member Role: Primary Care Nurse Name: Beverly Grey Position: [facility] RN Member Role: Primary Care Nurse Name: Alexy Geronimo RN Position: [facility] RN Member Role: Primary Care Nurse Name: Raúl Rudolph DO Position: [facility] HOME IMPROVEMENT CONTRACTOR MD Member Role: [employer] HOME IMPROVEMENT CONTRACTOR Physician Address: Address: [address] [facility] [place] [address]- [place] Name: Evelyn Haynes RN Position: [facility] RN Member Role: Primary Care Nurse Name: Crissy Metzger RN Position: [facility] RN Member Role: Primary Care Nurse Name: Elisa Gilbert RN Position: [facility] RN Member Role: Primary Care Nurse Name: Corina Solorio RN Position: [facility] AMB Nurse Member Role: Primary Care Nurse Name: Shawnee Lane RN Position: [facility] ED RN W/OE and Tasks Member Role: Primary Care Nurse Name: Erna Douglass RN Position: [facility] SN RN Member Role: Primary Care Nurse Name: Keyana Ndiaye RN Position: [facility] Hospital Umbrella Repairer Member Role: Primary Care Nurse Name: Anabella Nicholson RN Position: [facility] AMB Nurse Member Role: Primary Care Nurse Name: Brenda Tomas RN Position: [facility] Outreach Member Role: Primary Care Nurse Name: Ramona Ybarra RN Position: [facility] RN Member Role: Primary Care Nurse Address: Address: [address] [place] [address]- Name: Nancy Gallagher RN Position: [facility] Hospital Umbrella Repairer Member Role: Primary Care Nurse Name: Evelyn Allen RN Position: [facility] OB RN Member Role: Primary Care Nurse Name: Jackelin Watt RN Position: [facility] RN Member Role: Primary Care Nurse Name: Raymundo Elizabeth RN Position: [facility] SN RN Member Role: Primary Care Nurse Name: Opal Calderon RN Position: [facility] RN Member Role: Primary Care Nurse Name: Yadiel Warner RN Position: [facility] SN RN Member Role: Primary Care Nurse Care Team Related Persons Name: BARTOLOME IBRAHIM Address: [address] [place] [address] Name: GIANLUCA IBRAHIM Address: [address] [place], [place] Name: ABBIE IBRAHIM Address: [address] [place], [place] Name: SIM CERDA Name: DIANE CERDA Address: [address] [place] [address] Name: SOLO CORRIGAN Address: [address] [place] [address] Name: SOLO FLORES Address: [address] [place] [address] Name: RAYMUNDO MAYFIELD Address: [address] [place] [address]
--- OUTSIDE RECORDS SUMMARY | 2024-01-27 11:23 | XMS_ITS | Continuity of Care Document ---
Author Organization [facility] Address [address] [place] [address]- Care Team Providers Care General Office Associate Name Role Phone Agustín Faria MD Primary Care Physician [phone] Encounter [facility] Date(s): 10/28/21 - 11/27/21 [facility] On[facility] [address] [place] [id number] Allergies, Adverse Reactions, Alerts Substance Reaction Severity [...] with hydrocortisone as needed for adrenal crisis, 10/27/21 14:24:00 EST, Supply, 170, cm, 09/18/21 15:26:00 EST, Height, 73.6, kg, 07/18/21 13:44:00 EDT, Dry... Start Date: 10/27/21 Status: Ordered 30 cc syringe 21 G [...] SQ for adrenal insuff. 90 day supply, 10/27/21 14:24:00 EST, Supply, 170, cm, 09/18/21 15:26:00 EST, Height, 73.6, kg, 07/18/21 13:44:... Start Date: 10/27/21 Stop Date: 02/24/22 Status: Ordered amoxicillin 875 mg oral tablet = 875 mg, By Mouth, Every 12 hours, Take 1 tab on evening of 07/15 1 tab every 12hrs on 07/16 and 07/17, # 5 tablet, 0 Refills, Maintenance, 07/15/21 10:36:00 EDT, Tablet, [facility], Partial fill upon patient request if [...] opioid drug. Start Date: 12/30/20 Status: Ordered Insulin Syringe, BD Ultra-Fine 1 cc 31 G x 8 mm (5/16in) See Instructions, # 60 each, Refills 11, Tot. Refills 11, Maintenance, use twice daily with solucortef, 10/27/21 14:25:00 EST, Supply, 170, cm, 09/18/21 15:26:00 EST, Height, 73.6, kg, 07/18/21 13:44:00 EDT, Dry Weight Start Date: 10/27/21 Status: Ordered lidocaine 1.8% topical film 1 patch, Topically, Daily, leave on up to 12 hours, # 30 each, 0 Refills, Maintenance, 08/24/19 8:56:45 EST, Film Start Date: 08/24/19 Status: Ordered ondansetron 8 mg oral tablet, disintegrating 1 tablet = 8 mg, By Mouth, 3 times a day, PRN Nausea & Vomiting, # 30 tablet, 0 Refills, Maintenance, 12/26/20 12:55:00 EDT, [facility] #[id number], Partial fill upon patient request if the prescription is for a schedule II opioid drug., 170, cm,... Start Date: 12/26/20 Status: Ordered Potassium Chloride = 40 mEq, By Mouth, [...] # 8 each, 11 Refills, Soft Stop, 10/27/21 14:15:00 EST, Powder, [email or web address] #[id number], Partial fill upon patient... Start Date: 10/27/21 Status: Ordered Zofran 4 mg oral tablet 1 tablet = 4 mg, By Mouth, Every 8 hours, PRN Nausea & Vomiting, # 10 tablet, 0 Refills, Maintenance, 01/20/21 7:49:00 EDT, Tablet, [email or web address] #[id number], Partial fill upon patient request if the prescription is for a schedule II opioid drug., 1... Start Date: 5/3/21 Status: Ordered Problem List Condition Effective Dates [...] Equipment Implanted Date:07/09/21Target Site:Ureter Description Quantity MRI MAKO Surgical Model STENT STRETCH VL 6FR - BSCI (316-830) 1 Spruceling Unknown GO:No Information Assigning Authority: FDA
--- OUTSIDE RECORDS SUMMARY | 2024-01-27 11:23 | XMS_ITS | Continuity of Care Document ---
Author Organization [facility] Address [address] [place] [address]- Care Team Providers Care Aircraft Pilot Name Role Phone Silvio Low MD Primary Care Physician Encounter [facility] Date(s): 03/10/21 - 04/09/[address] [address] Attending Physician: Maximo Cano Admitting Physician: AdmtrMaximo Referring Physician: Admtr, Ar8 Allergies, Adverse Reactions, Alerts Substance Reaction Severity [...] Date: 10/02/20 Stop Date: 01/30/21 Status: Ordered Banophen 25 mg oral tablet [...] Dry Weight Start Date: 10/02/20 Status: Ordered Lab draw Lab draw, See Instructions, # 1 each, Refills 0, Tot. Refills 0, Maintenance, lytes, magnessiom, creatinine Dx: hypokalemia labs sent to Dr Low and Dr Appiah, Dr Yoseph Kerr, 01/04/21 12:09:00 EDT, Supply, 170, cm, 01/02/21 20:25:00 EDT, Hei... Start Date: 01/04/21 Status: Ordered lidocaine 1.8% topical film 1 patch, Topically, Daily, leave on up to 12 hours, # 30 each, 0 Refills, Maintenance, 08/24/19 8:56:45 EST, Film Start Date: 08/24/19 Status: Ordered ondansetron 8 mg oral tablet, disintegrating 1 tablet = 8 mg, By Mouth, 3 times a day, PRN Nausea & Vomiting, # 30 tablet, 0 Refills, Maintenance, 12/26/20 12:55:00 EDT, [facility] #[id number], Partial fill upon patient request if the prescription is for a schedule II opioid drug., 170, cm,... Start Date: 12/26/20 Status: Ordered Potassium Chloride = 40 mEq, By Mouth, 2 times a day, 0 Refills, Maintenance, 01/20/21 5:39:00 EDT, Partial fill upon patient request if the prescription is for a schedule II opioid drug. Start Date: 01/20/21 Status: Ordered Potassium Chloride (Nrj-Jquv-Jub M20) 20 mEq oral tablet, extended release 1 tablet = 20 mEq, By Mouth, 2 times a day, # 10 tablet, 0 Refills, Maintenance, 01/20/21 7:48:00 EDT, [facility] #[id number], Partial fill upon patient request if the prescription is for a schedule II opioid drug., 170.18, cm, 01/20/21 5:33:00 E... Start Date: 01/20/21 Status: Ordered Senna = [...] Refills, Soft Stop, 10/02/20 11:57:00 EST, Powder, [facility] #[id number], Partial fill upon patient... Start Date: 10/02/20 Status: Ordered SoluCortef Inj See Instructions, Subcutaneous Injection, 2 times a day, 0 Refills, Maintenance, 12/29/20 21:48:00 EDT, Partial fill upon patient request if the prescription is for a schedule II opioid drug. Start Date: 12/29/20 Status: Ordered traZODone 150 mg oral tablet 1 tablet = 150 mg, By Mouth, Daily at bedtime, # 30 tablet, 0 Refills, Maintenance, 12/19/20 1:55:00 EDT, Tablet, Partial fill upon patient request if the prescription is for a schedule II opioid drug. Start Date: 12/19/20 Status: Ordered Zofran 4 mg oral tablet 1 tablet = 4 mg, By Mouth, Every 8 hours, PRN Nausea & Vomiting, # 10 tablet, 0 Refills, Maintenance, 01/20/21 7:49:00 EDT, Tablet, [facility] #[id number], Partial fill upon patient request if the [...] disorder)(Confirmed) Active PTSD (post-traumatic stress disorder)(Confirmed) Active Functional overlay(Confirmed) Active MDD (major depressive [...]
--- OUTSIDE RECORDS SUMMARY | 2024-01-27 11:23 | XMS_ITS | Continuity of Care Document ---
Author Organization [facility] Address [address] [place] [address]- Care Team Providers Care Brim Flexer Name Role Phone Maranda WILCOX, Silvio Martinez Primary Care Physician Encounter [facility] Date(s): 09/18/20 - 10/18/20 [facility] [address] [place] [address]- Allergies, Adverse Reactions, Alerts Substance Reaction Severity [...] capsule, 1 Refills, Maintenance, 10/21/19 11:17:00 EST, [facility] #[id number], 1 capsule By Mouth 3 times a [...] 04/09/21 14:58:00 EDT, 04/09/20 14:57:00 EDT, Tablet, [facility] #[id number], 169, cm, 04/05/20 12:55:00 EDT, Height, 85, [...] 0 Refills, Maintenance, 10/08/20 10:19:00 EST, Tablet, [facility] #[id number], 170, cm, 10/04/20 19:07:00 EST, Height, 91, kg, 0... Start Date: 10/08/20 Stop Date: 11/07/20 Status: Ordered KlonoPIN 1 mg oral tablet 2.5 tablet = 2.5 mg, By Mouth, Daily at bedtime, 0.5 mg TID 1 mg at hs, # 75 tablet, 3 Refills, Maintenance, 05/28/20 11:56:00 EDT, [facility] #[id number], 170, cm, 05/27/20 0:11:00 EDT, Height,90.4, kg, [...] 3 Refills, Maintenance, 10/16/20 16:21:00 EST, Tablet, [facility] #[id number], Partial fill upon patient request if the [...] 0 Refills, Maintenance, 06/18/20 16:48:00 EDT, Tablet, [facility] #[id number], 170, cm, 06/18/20 15:14:00 EDT, Height, 90.4, [...] Refills, Soft Stop, 10/02/20 11:57:00 EST, Powder, [facility] #[id number], Partial fill upon patient... Start Date: 10/02/20 [...]
--- OUTSIDE RECORDS SUMMARY | 2024-01-27 11:23 | XMS_ITS | Continuity of Care Document ---
Author Organization [facility] Address [address] [place] [address]- Care Team Providers Care Railway Patrol Officer Name Role Phone Dash WILCOX (ME), Paola Anderson Primary Care Physician Encounter [facility] Date(s): 05/12/23 - 05/13/[address] [address]- Discharge Disposition: A-D/C Home Attending Physician: Kenneth [...] influenza virus vaccine, inactivated 2 06/23/16 Gi ugalberto influenza virus vaccine, inactivated 3 06/29/13 Gi gualberto influenza virus vaccine, inactivated 05/24/12 Give n tetanus/diphtheria/pertussis, acel(Tdap) 01/02/18 Given pneumococcal 23-valent vaccine 4 12/10/15 Given Adacel (Tdap) (oldterm) 04/30/09 Recorded tetanus-diphtheria toxoids (Td) 06/05/03 Recorded 1Result Comment: GIVEN AT PHARM 2Result Comment: manufactuer: afluria 3Admin Note: vis 4Early/Late Reason: Other : Medications (Vitamin D3) Cholecalciferol 400 LONGTERM units/mL oral syringe 1 mL = 10 [...] tablet, 3 Refills, Maintenance, 08/17/22 15:43:00 EST, [facility] #[id number], 170, cm, 05/13/22 17:18:00 EDT, Height, 88.8, [...] 01/08/21 13:59:00 EDT, Route to Pharmacy Electronically, [facility] #[id number], Partial fill upon patient request if the prescription is for a sched... Start Date: 01/08/21 Status: Ordered famotidine 20 mg oral tablet 20 mg, 1, tablet, By Mouth, Daily at bedtime, # 30 tablet, Refills 0, Tot. Refills 0, Maintenance, 05/13/23 10:33:00 EDT, Route to Pharmacy Electronically, [facility] #[id number], Partial fill upon patient request if the prescription is for a jose... Start Date: 05/13/23 Stop Date: 06/12/23 Status: Ordered Flonase 50 mcg/inh nasal spray 2 sprays, Nares, Both, 2 times a day, PRN Congestion, # 16 Gm, 0 Refills, Maintenance, 08/20/20 11:17:00 EST, [place], [facility] #[id number], Partial fill upon patient request if the prescriptionis for a schedule II opioid drug., 170, cm, ... Start Date: 08/20/20 Status: Ordered gabapentin 300 mg oral capsule 300 mg, 1, capsule, By Mouth, 2 times a day, # 60 capsule, Refills 4, Tot. Refills 4, Maintenance, 11/11/22 15:13:00 EST, Route to Pharmacy Electronically, [facility] #[id number], Partial fill upon patient request if the [...] 0 Refills, Maintenance, 05/13/23 10:33:00 EDT, Tablet, [email or web address] #[id number], Partial fill upon patient request if the prescription is for a schedule II opioid drug., 1... Start Date: 05/13/23 Stop Date: 05/16/23 Status: Ordered prazosin 2 mg oral capsule 2 capsule = 4 mg, By Mouth, Daily at bedtime, if PO intake is low or BP low below 110/70 only take one cap, # 60 capsule, 4 Refills, Maintenance, 11/11/22 15:17:00 EST, [facility] #[id number], Partial fill upon patient request if the [...] 03/10/23 15:36:00 EDT, Route to Pharmacy Electronically, [facility] #[id number], Partial fill upon patient request if the [...] Refills, Soft Stop, 04/20/22 10:54:00 EDT, Powder, [facility] #[id number], Partial fill upon patient... Start Date: 8/1/22 Status: Ordered Problem List Condition Confirmation Course [...] Range]: 1 2 3 Height 170 cm (05/13/23 10:39 AM) 170 cm (05/13/23 9:23 AM) 170 cm (05/13/23 5:47 AM) Weight 87 kg (05/13/23 10:39 AM) 87 kg (05/13/23 9:23 AM) 87 kg (05/13/23 5:47 AM) Oxygen Saturation [94-100 %] 96 % (05/13/23 10:39 AM) 96 % (05/13/23 9:23 AM) 98 % (05/13/23 5:47 AM) Pulse Rate [55-90 bpm] 60 bpm (05/13/23 10:39 AM) 63 bpm (05/13/23 9:23 AM) 69 bpm (05/13/23 5:47 AM) Body Mass Index [18.5-24.99 kg/m2] 30.1 kg/m2 *>HHI* (05/13/23 10:39 AM) 30.1 kg/m2 *>HHI* (05/13/23 9:23 AM) 30.1 kg/m2 *>HHI* (05/13/23 5:47 AM) Blood Pressure [90-138/55-84 mm Hg] 136/91mm Hg (05/13/23 10:39 AM) 137/78mm Hg (05/13/23 9:23 AM) 158/99mm Hg *H* (05/13/23 5:47 AM) Respiratory Rate [16-30 br/min] 10 br/min *L* (05/13/23 10:39 AM) 16 br/min (05/13/23 9:23 AM) 14 br/min *L* (05/13/23 5:47 AM) Temperature [96.8-100.4 DegF] 97.7 DegF (05/13/23 10:39 AM) 98.7 DegF (05/13/23 4:00 AM) 98.1 DegF (05/12/23 11:59 PM) Mode of Delivery (Oxygen) Room air (05/13/23 10:39 AM) Room air (05/13/23 9:23 AM) Room air (05/13/23 5:47 AM) Blood pressure sites Arm, right (05/13/23 10:39 AM) Arm, right (05/13/23 9:23 AM) Arm, right (05/13/23 5:47 AM) Temperature Route Oral (05/13/23 10:39 AM) Oral (05/13/23 4:00 AM) Oral (05/12/23 11:59 PM) Dry Weight 87 kg (05/13/23 10:39 AM) 87 kg (05/13/23 9:23 AM) 87 kg (05/13/23 5:47 AM) Dry Weight Obtained Via Patient/family s tated (05/13/23 12:06 AM) Social History Social History Type Response [...] Display: ECG 12-Lead Authored Date: Ventricular Rate: 59 BPM Atrial Rate: 59 BPM P-R Interval: 120 ms QRS Duration: 74 ms Q-T Interval: 450 ms QTC Calculation(Bazett): 445 ms P [place]: 26 degrees R [place]: 19 degrees T [place]: 27 degrees Sinus bradycardia Otherwise normal ECG When compared with ECG of 10-MAY-2023 21:00, No significant change was found Confirmed by LALITA WILLARD MD ([id number]) on 05/13/2023 8:15:49 PM [place]: LALITA WILLARD MD Note * Jimbo Mcclellan MD: PERFORM Event Display: Patient Education Leaflets Authored Date: [id number] Treating Gastritis ?? 08800 Treating Gastritis Your healthcare provider will evaluate you to find out the cause of your symptoms. This may includea review of your health history, a physical exam, and some tests. Treatment can start when the cause of your gastritis is found. Treatment may include taking certain medicines and making some lifestyle changes. Follow your healthcare provider???s advice. Taking medicines Your healthcare providers may prescribe medicines to neutralize or reduce extra stomach acids. These may include antacids, H2 blockers, and proton pump inhibitors. Sometimes a medicine is prescribed to help the stomach's protective lining. If tests show that H. pylori are in your stomach lining, antibiotics may be prescribed even if you don't have symptoms. H. pylori are a type of bacteria that can cause gastritis. Some types of gastritis can cause low vitamin levels. For these, you may need totake supplements. Take your medicines as directed, even if your stomach pain goes away. Staying away from certain things Be sure to stay away from: ??? Aspirin. Don't take aspirin or other NSAIDs (nonsteroidal anti-inflammatory drugs) such as ibuprofen. They can irritate your stomach lining. Also check with your healthcare provider before takingor stopping any medicines. ??? Spicy foods and caffeine. Stay away from foods made with spices, especially black pepper. Caffeine can also make your symptoms worse. Don't have coffee, tea, cola drinks, or chocolate. Tell your healthcare provider about any other foods or liquids that bother your stomach. ??? Tobacco and alcohol. Don???t use tobacco or drink alcohol. Tobacco and alcohol can increase stomach acids and make your gastritis symptoms worse. They can make gastritis harder to heal. Reducing your stress Stress may make your gastritis symptoms worse. Whenever you can, reduce the stress in your life. One way to do this is exercise. But talk to your healthcare provider first. Also try to get enough sleep. Aim for at least 8 hours a night. Last Reviewed Date: 2022 ?? 5872-5831 [employer]. All rights reserved. This information is not intended as a substitute for professional medical care. Always follow your healthcare professional's instructions. ?? * Vy WILCOX, Jimbo Barillas: PERFORM Event Display: Patient Education Leaflets Authored Date: [id number] Gastritis (Adult) ?? [id number] Gastritis (Adult) Gastritis is??inflammation and??irritation of the stomach lining. You can have it for a short time (acute) or it can be long lasting (chronic). Infection with bacteria called??H. pylori most often causes gastritis.??More than 1 out of 3 people in the [place] have these bacteria in their bodies. In many cases,??H. pylori??causes no problems or symptoms. But in some people, the infection irritates thestomach lining and causes gastritis. H. pylori may be diagnosed through blood, stool, or breath tests, or by a biopsy during an endoscopy. Other causes of stomach irritation include drinking alcohol,smoking or chewing tobacco, or taking pain-relieving medicines called nonsteroidal anti-inflammatory drugs (NSAIDs), such as aspirin or ibuprofen. Some illegal drugs (such as cocaine) and immune conditions can also cause gastritis. Symptoms of gastritis can include: ??? Belly pain or bloating ??? Feeling full quickly ??? Loss of appetite ??? Weight loss ??? Nauseaor vomiting ??? Vomiting blood or having black stools ??? Feeling more tired than normal An inflamed and irritated stomach lining is more likely to develop a sore called an ulcer. To help prevent this, gastritis should be evaluated and treated as soon as symptoms occur. Home care If needed, your healthcare provider may prescribe medicines. If you have??H. pylori??infection, treating it will likely ease your symptoms. Other changes can help reduce stomach irritation and help it heal. ??? Take prescription medicines as directed. If you have been prescribed medicines for??H. pylori??infection, take them as directed. Take all of the medicine until it's finished or until your provider tells you to stop taking it, even if you start to feel better. ??? Follow your healthcare provider's advice on NSAIDs. Your provider may advise you not to take NSAIDs such as ibuprofen. If you take daily aspirin for your heart or other health reasons, don't stop without talking with your provider first. ??? Don't drink alcohol. If you need help stopping your use of alcohol, ask your provider for treatment resources. ??? Stop smoking. Smoking can irritate the stomach and delay healing. As much as possible, stay away from secondhand smoke. If you smoke and have trouble stopping, ask your provider for help. ?? Follow-up care Follow up with your healthcare provider, or as advised. You may need testing to check for inflammation or an ulcer. ?? When to get medical advice Call your healthcare provider if any of the following occur: ??? Stomach pain that gets worse or moves to the lower right belly (appendix area) ??? Chest pain that suddenly appears or gets worse, or spreads to the back, neck, shoulder, or arm ??? Frequent vomiting (can???t keep down liquids) ??? Blood in the stool or vomit (red or black in color) ??? Feeling weak or dizzy ??? Shortness of breath ??? Unexplained weight loss ??? Fever of 100.4??F (38??C) or higher, or as directed by your healthcare provider ??? Symptoms that get worse, or new symptoms ?? Last Reviewed Date: 2022 ?? 9737-3707 [employer]. All rights reserved. This information is not intended as a substitute for professional medical care. Always follow your healthcare professional's instructions. ?? Patient Care team information Care Team Personnel Name: Dash WILCOX (ME) , Paola Anderson Position: [facility] Outreach Member Role: PCP Address: Address: [address] [place] [id number] Name: Daina Ibrahim RN Position: [facility] ED RN W/OE and Tasks Member Role: Primary Care Nurse Name: Madeline Baird RN Position: [facility] ED RN W/OE and Tasks Member Role: Primary Care Nurse Name: Teresa Carpio Position: [facility] RN Member Role: Primary Care Nurse Name: Inge Elizabeth RN Position: [facility] SN RN Member Role: Primary Care Nurse Name: Kelley Prasad RN Position: [facility] RN Member Role: Primary Care Nurse Name: Cindy Medeiros RN Position: [facility] RN Member Role: Primary Care Nurse Name: Linnette De La O RN Position: [facility] REGROOVER Member Role: Primary Care Nurse Name: Alina Castillo NP Position: [facility] Associate Professional Member Role: Primary Care Nurse Address: Address: [address] [facility] [place] [address]- [place] Name: Mary Anne Kilpatrick RN Position: [facility] MR W/ Merge Member Role: Primary Care Nurse Name: Nicole Hernández RN Position: [facility] RN Member Role: Primary Care Nurse Name: Douglas Harris Position: [facility] Cardio/Pulm Mgr ([facility] Member Role: Primary Care Nurse Name: Lindsay Srinivasan CNM Position: [facility] Dye Machine Tender Member Role: Primary Care Nurse Address: Address: [address] [facility] [place] [address]- [place] Name: Larissa Olson [place] Position: [facility] RN Member Role: Primary Care Nurse Name: Karen Roa RN Position: [facility] ED RN W/OE and Tasks Member Role: Primary Care Nurse Name: Mary Alice Stevens RN Position: [facility] RN Member Role: Primary Care Nurse Name: Beverly Grey Position: [facility] RN Member Role: Primary Care Nurse Name: Alexy Geronimo RN Position: [facility] RN Member Role: Primary Care Nurse Name: Raúl Rudolph DO Position: [facility] SALON STYLIST MD Member Role: [employer] SALON STYLIST Physician Address: Address: [address] [facility] [place] [address]- [place] Name: Evelyn Haynes RN Position: [facility] RN Member Role: Primary Care Nurse Name: Crissy Metzger RN Position: [facility] RN Member Role: Primary Care Nurse Name: Elisa Gilbert RN Position: [facility] RN Member Role: Primary Care Nurse Name: Corina Solorio RN Position: [facility] AMB Nurse Member Role: Primary Care Nurse Name: Shawene Lane RN Position: [facility] ED RN W/OE and Tasks Member Role: Primary Care Nurse Name: Erna Douglass RN Position: [facility] SN RN Member Role: Primary Care Nurse Name: Keyana Ndiaye RN Position: [facility] Business Continuity Management Director Member Role: Primary Care Nurse Name: Anabella Nicholson RN Position: [facility] AMB Nurse Member Role: Primary Care Nurse Name: Brenda Tomas RN Position: [facility] Outreach Member Role: Primary Care Nurse Name: Ramona Ybarra RN Position: [facility] RN Member Role: Primary Care Nurse Address: Address: [address] [place] [address]- Name: Nancy Gallagher RN Position: [facility] Business Continuity Management Director Member Role: Primary Care Nurse Name: Evelyn Allen RN Position: [facility] OB RN Member Role: Primary Care Nurse Name: Jackelin Watt RN Position: [facility] RN Member Role: Primary Care Nurse Name: Raymundo Elizabeth RN Position: [facility] SN RN Member Role: Primary Care Nurse Name: Opal Caldeorn RN Position: [facility] RN Member Role: Primary Care Nurse Name: Yadiel Warner RN Position: [facility] SN RN Member Role: Primary Care Nurse Name: Jimbo Mcclellan MD Position: [facility] Resident Member Role: ED Attending Physician Address: Address: [address] [place] [address]- Name: Adrienne Alfred RN Position: [facility] ED RN W/OE and Tasks Member Role: Patient Care Provider Name: Mimi Salas Position: [facility] ED [facility] Member Role: Patient Care Provider Name: Mike Rothman Position: [facility] ED [facility] Member Role: Patient Care Provider Care Team Related Persons Name: BARTOLOME IBRAHIM Address: [address] [place], [place] Name: GIANLUCA IBRAHIM Address: [address], [place] Name: ABBIE IBRAHIM Address: [address] [place], [place] Name: SIM CERDA Name: DIANE CERDA Address: home [address] [place] [id number] Name: SOLO CORRIGAN Address: home [address] [place] [address] Name: SOLO FLORES Address: home [address] [place] [address] Name: RAYMUNDO MAYFIELD Address: home [address] [facility] [place] [place] [address]
--- OUTSIDE RECORDS SUMMARY | 2024-01-27 11:23 | XMS_ITS | Continuity of Care Document ---
Author Organization [facility] Address [address] [place] [address]- Care Team Providers Care Lock Operator Name Role Phone Agustín Faria MD Primary Care Physician Encounter [facility] Date(s): 04/20/22 - 04/27/22 [facility] [address] [place] [address]- Attending Physician: Thom WILCOX, Manda Gloria Referring Physician: Agustín Faria MD Allergies, Adverse Reactions, Alerts Substance Reaction Severity Status propranolol Rash Active Cefzil Hives Active Xarelto rash Active Lexapro n/v Active Zoloft tachycardia n/v Active Nardil Palpitations - rapid N&V - Nausea and vomiting C/O - a headache Active Inderal n/v,tachcardia Active Haldol Active Compazine severe anxiety Hives Active Reglan severe anxiety~panic Active Immunizations Given and Recorded Vaccine Date [...] Note: vis 4Early/Late Reason: Other : Medications 3cc syring with 21 gu 1 needle 3cc syring with 21 gu 1 needle, See Instructions, # 10 each, Refills 11, Tot. Refills 11, Maintenance, use to reconstitute solumedrol, 04/21/22 16:07:00 EDT, Supply, 170, cm, 04/17/22 10:59:00 EDT, Height, 80.9, kg, 01/06/22 14:39:00 EDT, Dry Weight Start Date: 04/21/22 Status: Ordered Alcohol Pads See Instructions, # 200 each, Refills 3, Tot. Refills 3, Maintenance, use twice daily with hydrocortisone injections SQ for adrenal insuff. 90 day supply, 04/20/22 10:56:00 EDT, Supply, 170, cm, 04/17/22 10:59:00 EDT, Height, 80.9, kg, 01/06/22 14:39:... Start Date: 04/20/22 Stop Date: 08/18/22 Status: Ordered Banophen 25 mg oral tablet [...] 11, Maintenance, use twice daily with solucortef, 04/20/22 10:54:00 EDT, Supply, 170, cm, 04/17/22 10:59:00 EDT, Height, 80.9, kg, 01/06/22 14:39:00 EDT, Dry Weight Start Date: 04/20/22 Status: Ordered lidocaine 1.8% topical film 1 patch, Topically, Daily, leave on up to 12 hours, # 30 each, 0 Refills, Maintenance, 08/24/19 8:56:45 EST, Film Start Date: 08/24/19 Status: Ordered ondansetron 8 mg oral tablet, disintegrating 1 tablet = 8 mg, By Mouth, 3 times a day, PRN Nausea & Vomiting, # 30 tablet, 0 Refills, Maintenance, 12/26/20 12:55:00 EDT, [facility] #[id number], Partial fill upon patient request if the [...] Refills, Soft Stop, 04/20/22 10:54:00 EDT, Powder, [facility] #[id number], Partial fill upon patient... Start Date: 04/20/22 Status: Ordered Wheelchair See Instructions, # 1 each, Maintenance, right ankle fracture left ankle sprain, 01/06/22 16:36:00 EDT, Supply Start Date: 01/06/22 Status: Ordered Problem List Condition Effective Dates Status Health Status Inform ant Abdominal pain(Confirmed) Active Asthma(Confirmed) Active Pacemaker, Biotronik, insert ed 10/29/14(Confirmed) 1 Active Chest pain(Confirmed) Active Colitis(Confirmed) Active Narcotic dependence(Confirmed) Active Diarrhea(Confirmed) Active Essential hypertension(Confirmed) Active Gastroduodenitis(Confirmed) Active Gastroesophageal reflux disease(Confirmed) Active S/p REFUGIO-BSO(Confirmed) Active Hyperlipidemia with target L DL less than 100(Confirmed) Active Insufficiency, adrenal(Confirmed) Active Adrenal insufficiency(Confirmed) Active Mast cell disease(Confirmed) Active Normal coronary [...] Model STENT STRETCH VL 6FR - BSCI (643-366) 1 DeepField Unknown GO:No Information Assigning Authority: FDA
--- OUTSIDE RECORDS SUMMARY | 2024-01-27 11:24 | XMS_ITS | Continuity of Care Document ---
Author Organization [facility] r Address [address] [place] [address]- Care Team Providers Care Load Dropper Name Role Phone Maranda WILCOX, Silvio Martinez Primary Care Physician Encounter [facility] Date(s): 12/04/20 - 01/03/[address] [id number] Attending Physician: AdmMaximo diaz Admitting Physician: AdmtrMaximo Referring Physician: Admtr, [id number] [...] Dry Weight Start Date: 05/08/20 Status: Ordered Banophen 25 mg oral tablet 1 tablet = 25 mg, By Mouth, 3 times a day, PRN for allergy symptoms, # 30 tablet, 0 Refills, Maintenance, 12/30/20 1:13:00 EDT, Tablet, Partial fill upon patient request if the prescription is for a schedule II opioid drug. Start Date: 12/30/20 Status: Ordered BuPROPion (Eqv-Wellbutrin SR) 150 mg/12 hours oral tablet, extended release TK 1 T PO D Start Date: 12/30/20 Status: Ordered busPIRone 15 mg oral tablet 1 tablet = 15 mg, By Mouth, 3 times a day, # 90 tablet, 0 Refills, Maintenance, 12/30/20 1:11:00 EDT, Tablet, Partial fill upon patient request if the prescription is for a schedule II opioid drug. Start Date: 12/30/20 Status: Ordered Creon 36,000 units oral delayed release capsule 1 capsule, By Mouth, 3 times a day, with each meal and snack, # 270 capsule, 1 Refills, Maintenance, 10/21/19 11:17:00 EST, [facility] #[id number], 1 capsule By Mouth 3 times a day,Instr:with each meal and snack, 170, cm, 10/20/19 13:48:00 EST, H... Start Date: 10/21/19 Status: Ordered duloxetine 30 mg oral enteric coated capsule 1 capsule = 30 mg, By Mouth, Daily, do not crush or chew, 0 Refills, Maintenance, 12/30/20 1:11:00 EDT, CR Capsule, Partial fill upon patient request if the prescription is for a schedule II opioid drug. Start Date: 12/30/20 Status: Ordered Famotidine = 20 mg, By Mouth, 2 times a day, 0 Refills, Maintenance, 03/07/20 20:24:00 EDT Start Date: 03/07/20 Status: Ordered fludrocortisone 0.1 mg oral tablet 1 tablet = 0.1 mg, By Mouth, Daily, # 90 tablet, 3 Refills, Acute 04/09/21 14:58:00 EDT, 04/09/20 14:57:00 EDT, Tablet, [facility] #[id number], 169, cm, 04/05/20 12:55:00 EDT, Height, 85, kg, 03/15/20 2:33:00 EDT, Dry Weight Start Date: 04/09/20 Stop Date: 04/09/21 Status: Ordered Insulin Syringe, BD Ultra-Fine 1 cc 31 G x 8 mm (5/16in) See Instructions, # 60 each, Refills 11, Tot. Refills 11, Maintenance, use twice daily with solucortef, 10/02/20 11:59:00 EST, Supply, 170, cm, 09/18/20 12:56:00 EST, Height, 93, kg, 09/18/20 12:56:00 EST, Dry Weight Start Date: 10/02/20 Status: Ordered lidocaine 1.8% topical film 1 patch, Topically, Daily, leave on up to 12 hours, # 30 each, 0 Refills, Maintenance, 08/24/19 8:56:45 EST, Film Start Date: 08/24/19 Status: Ordered Metoprolol Tartrate 25 mg oral tablet 1 tablet = 25 mg, By Mouth, 2 times a day, Call if any significant lightheadedness, # 60 tablet, 3 Refills, Maintenance, 10/16/20 16:21:00 EST, Tablet, [facility] #[id number], Partial fill upon patient request if the prescription is for a schedul... Start Date: 10/16/20 Stop Date: 02/13/21 Status: Ordered ondansetron 8 mg oral tablet, disintegrating 1 tablet = 8 mg, By Mouth, 3 times a day, PRN Nausea & Vomiting, # 30 tablet, 0 Refills, Maintenance, 12/26/20 12:55:00 EDT, [facility] #[id number], Partial fill upon patient request if the prescription is for a schedule II opioid drug., 170, cm,... Start Date: 12/26/20 Status: Ordered oxyCODONE 10 mg oral tablet 1 tablet = 10 mg, By Mouth, Every 8 hours, PRN as needed for pain, 0 Refills, Maintenance, 12/28/2120:20:00 EDT, Tablet, Partial fill upon patient request if the prescription is for a schedule II opioid drug. Start Date: 12/28/20 Status: Ordered potassium chloride 20 mEq oral tablet, extended release 1 tablet = 20 mEq, By Mouth, Daily, # 30 tablet, 7 Refills, Maintenance, 12/26/20 12:54:00 EDT, ER Tablet, [facility] #[id number], 170, cm, 12/26/20 9:55:00 EDT, Height, 84.65, kg, 12/19/20 1:16:00 EDT, Dry Weight Start Date: 12/26/20 Stop Date: 08/23/21 Status: Ordered Senna = 8.5 mg, By Mouth, 2 times a day, 0 Refills, Maintenance, 11/06/16 11:22:55 Start Date: 11/06/16 Status: Ordered Solu-CORTEF Act-O-Vial 100 mg injection See Instructions, use daily SQ for adrenal insufficiency. 14 mg qam and 7 mg qpm please provide extra 2 mg vial for stress dosing., # 8 each, 11 Refills, Soft Stop, 10/02/20 11:57:00 EST, Powder, [facility] #[id number], Partial fill upon patient... Start Date: 10/02/20 Status: Ordered SoluCortef Inj See Instructions, 0 Refills, Maintenance, 12/29/20 21:48:00 EDT, Partial [...] opioid drug. Start Date: 12/19/20 Status: Ordered Problem List Condition Effective Dates Status Health Status Inform ant Abdominal pain(Confirmed) Active Addisons disease(Confirmed) Active Asthma(Confirmed) Active Pacemaker, Biotronik, insert ed 10/29/14(Confirmed) 1 Active Chest pain(Confirmed) Active Colitis(Confirmed) Active Narcotic dependence(Confirmed) Active Diarrhea(Confirmed) Active Essential hypertension(Confirmed) Active Gastroduodenitis(Confirmed) Active Gastroesophageal reflux disease(Confirmed) Active S/p REFUGIO-BSO(Confirmed) Active Hyperlipidemia(Confirmed) Active Hyperlipidemia with target L DL less [...]
--- OUTSIDE RECORDS SUMMARY | 2024-01-27 11:24 | XMS_ITS | Continuity of Care Document ---
Author Organization [facility] Address [address] [place] [address]- Care Team Providers Care Nursing Unit Manager Name Role Phone Maranda WILCOX, Silvio Martinez Primary Care Physician Encounter [facility] Date(s): 10/09/20 - 11/08/20 [facility] [address] [place] [address]- Allergies, Adverse Reactions, Alerts Substance Reaction Severity [...] capsule, 1 Refills, Maintenance, 10/21/19 11:17:00 EST, [facility] #[id number], 1 capsule By Mouth 3 times a [...] 04/09/21 14:58:00 EDT, 04/09/20 14:57:00 EDT, Tablet, [facility] #[id number], 169, cm, 04/05/20 12:55:00 EDT, Height, 85, [...] mg, By Mouth, 3 times a day, for 30 days, Do not fill early fill date 11/05/20, # 90 tablet, 0 Refills, Hard Stop 11/28/20 13:45:00 EST, 10/29/20 13:45:00 EST, Tablet Start Date: 10/29/20 Stop Date: 11/28/20 Status: Ordered KlonoPIN 1 mg oral tablet 2.5 tablet = 2.5 mg, By Mouth, Daily at bedtime, 0.5 mg TID 1 mg at hs, # 75 tablet, 3 Refills, Maintenance, 05/28/20 11:56:00 EDT, [facility] #[id number], 170, cm, 05/27/20 0:11:00 EDT, Height,90.4, kg, [...] 3 Refills, Maintenance, 10/16/20 16:21:00 EST, Tablet, [facility] #[id number], Partial fill upon patient request if the [...] 0 Refills, Maintenance, 06/18/20 16:48:00 EDT, Tablet, [facility] #[id number], 170, cm, 06/18/20 15:14:00 EDT, Height, 90.4, kg, 06/18/20 15:14:00 EDT, Dry Weight Start Date: 06/18/20 Stop Date: 06/25/20 Status: Ordered ondansetron 8 mg oral tablet, disintegrating 1 tablet = 8 mg, By Mouth, 3 times a day, # 10 tablet, 0 Refills, Maintenance, 10/30/20 17:44:00 EST, [facility] #[id number], Partial fill upon patient request if the prescription is for a schedule II opioid drug., 167, cm, 10/30/20 17:07:00 EST,... Start Date: 10/30/20 Status: Ordered Polymyxin B Ophthalmic See Instructions, [...] Refills, Soft Stop, 10/02/20 11:57:00 EST, Powder, [facility] #[id number], Partial fill upon patient... Start Date: 10/02/20 [...] dependence(Confirmed) Active Diarrhea(Confirmed) Active Essential hypertension(Confirmed) Active Gastroesophageal reflux disease(Confirmed) [...]
--- OUTSIDE RECORDS SUMMARY | 2024-01-27 11:24 | XMS_ITS | Continuity of Care Document ---
Author Organization [facility] Address [address] [place] [address]- Care Team Providers Care Seo Executive Name Role Phone Maranda WILCOX, Silvio Martinez Primary Care Physician Encounter [facility] Date(s): 09/16/20 - 10/19/20 [facility] [address] [place] [address]- Attending Physician: Ryan WILCOX, Yulisa Russo Allergies, Adverse Reactions, Alerts Substance Reaction [...] capsule, 1 Refills, Maintenance, 10/21/19 11:17:00 EST, [facility] #[id number], 1 capsule By Mouth 3 times a [...] 04/09/21 14:58:00 EDT, 04/09/20 14:57:00 EDT, Tablet, [facility] #[id number], 169, cm, 04/05/20 12:55:00 EDT, Height, 85, [...] 0 Refills, Maintenance, 10/08/20 10:19:00 EST, Tablet, [facility] #[id number], 170, cm, 10/04/20 19:07:00 EST, Height, 91, kg, 0... Start Date: 10/08/20 Stop Date: 11/07/20 Status: Ordered KlonoPIN 1 mg oral tablet 2.5 tablet = 2.5 mg, By Mouth, Daily at bedtime, 0.5 mg TID 1 mg at hs, # 75 tablet, 3 Refills, Maintenance, 05/28/20 11:56:00 EDT, [facility] #[id number], 170, cm, 05/27/20 0:11:00 EDT, Height,90.4, kg, [...] 3 Refills, Maintenance, 10/16/20 16:21:00 EST, Tablet, [facility] #[id number], Partial fill upon patient request if the [...] 0 Refills, Maintenance, 06/18/20 16:48:00 EDT, Tablet, [facility] #[id number], 170, cm, 06/18/20 15:14:00 EDT, Height, 90.4, [...] Refills, Soft Stop, 10/02/20 11:57:00 EST, Powder, [facility] #[id number], Partial fill upon patient... Start Date: 10/02/20 [...]
--- OUTSIDE RECORDS SUMMARY | 2024-01-27 11:24 | XMS_ITS | Continuity of Care Document ---
Author Organization [facility] Address [address] [place] [address]- Care Team Providers Care Power Cutting Machine Operator Name Role Phone Bienvenido WILCOX, Agustín Joaquin Primary Care Physician Encounter [facility] Date(s): 05/02/21 - 06/01/21 [facility] [address] [place] [id number] Allergies, Adverse Reactions, Alerts Substance Reaction Severity [...] Dry Weight Start Date: 04/15/21 Status: Ordered Lab draw Lab draw, See [...] tablet, 0 Refills, Maintenance, 12/26/20 12:55:00 EDT, [facility] #[id number], Partial fill upon patient request if the prescription is for a schedule II opioid drug., 170, cm,... Start Date: 12/26/20 Status: Ordered Potassium Chloride = 40 mEq, By Mouth, 2 times a day, 0 Refills, Maintenance, 01/20/21 5:39:00 EDT, Partial fill upon patient request if the prescription is for a schedule II opioid drug. Start Date: 01/20/21 Status: Ordered Potassium Chloride (Vrn-Kwod-Epz M20) 20 mEq oral tablet, extended release 1 tablet = 20 mEq, By Mouth, 2 times a day, # 10 tablet, 0 Refills, Maintenance, 01/20/21 7:48:00 EDT, [facility] #[id number], Partial fill upon patient request if the [...] request i... Start Date: 04/15/21 Status: Ordered SoluCortef Inj See Instructions, Subcutaneous Injection, 2 times a day, 0 Refills, Maintenance, 12/29/20 21:48:00 EDT, Partial fill upon patient request if the prescription is for a schedule II opioid drug. Start Date: 12/29/20 Status: Ordered Zofran 4 mg oral tablet 1 tablet = 4 mg, By Mouth, Every 8 hours, PRN Nausea & Vomiting, # 10 tablet, 0 Refills, Maintenance, 01/20/21 7:49:00 EDT, Tablet, [facility] #[id number], Partial fill upon patient request if the [...] Type Response Smoking Status Current every day sm oker; Previous treatment: Counseling; Previous treatment: Nicotine replacement; Other: 1/2 ppd x 20 yrs; entered on: 09/16/16 Sex
--- OUTSIDE RECORDS SUMMARY | 2024-01-27 11:24 | XMS_ITS | Continuity of Care Document ---
Author Organization [facility] Address [address] [place] [address]- Care Team Providers Care Hydraulic Corrugating Machine Operator Name Role Phone Dash WILCOX (DE), Paola Anderson Primary Care Physician [place] [facility] Date(s): 12/08/23 - 01/07/24 [facility] [address] [place] [address]- Attending Physician: Maximo Cano Admitting Physician: Maximo Cano Referring Physician: AdmMaximo diaz Allergies, Adverse Reactions, Alerts Substance Reaction Severity Status propranolol Rash Active droperidol-fentanyl 1 Active Zoloft tachycardia n/v Active Nardil Palpitations - rapid N&V - Nausea and vomiting C/O - a headache Active Inderal n/v,tachcardia Active Cefzil Hives Active Haldol Active Compazine severe anxiety Hives Active Reglan severe anxiety~panic Active Lexapro n/v Active Xarelto rash Active 1Only allergic to droperidol NOT fentanyl. [...] Note: vis 4Early/Late Reason: Other : Medications Aspirin Enteric Coated 81 mg oral delayed release tablet 1 tablet = 81 mg, By Mouth, Daily, Maintenance, 08/18/23 8:46:00 EST Start Date: 08/18/23 Status: Ordered cromolyn 20 mg/mL oral solution 10 mL = 200 mg, By Mouth, 4 times a day, 30 minutes before meals and at bedtime, Maintenance, 08/18/23 8:45:00 EST, Solution Start Date: 08/18/23 Status: Ordered FLUoxetine 20 mg oral capsule 40 mg, 2, capsule, By Mouth, Daily, Maintenance, 08/18/23 8:43:00 EST Start Date: 08/18/23 Status: Ordered gabapentin 300 mg oral capsule 300 mg, 1, capsule, By Mouth, 2 times a day, Refills 0, Maintenance, 08/18/23 8:44:00 EST, Partial fill upon patient request if the prescription is for a schedule II opioid drug. Start Date: 08/18/23 Status: Ordered KlonoPIN 1 mg oral tablet 1 tablet = 1 mg, By Mouth, 2 times a day, # 60 tablet, 4 Refills, Maintenance, 08/10/23 14:21:00 EST, Tablet, [facility] #[id number], Partial fill upon patient request if the prescription is fora schedule II opioid drug., 170, cm, 08/05/23 3:21:... Start Date: 08/10/23 Stop Date: 01/07/24 Status: Ordered Metoprolol Tartrate 100 mg oral tablet 1 tablet, By Mouth, 2 times a day, # 60 tablet, 4 Refills, Maintenance, 10/11/23 9:06:00 EST, [facility] #[id number], 170, cm, 09/26/23 11:43:00 EST, Height, 93, kg, 09/26/23 11:43:00 EST, Dry Weight Start Date: 10/11/23 Status: Ordered montelukast 10 mg oral tablet 10 mg, 1, tablet, By Mouth, Daily in PM, Maintenance, 08/18/23 8:47:00 EST Start Date: 08/18/23 Status: Ordered ondansetron 4 mg oral tablet, disintegrating 1 tablet = 4 mg, By Mouth, Every 6 hours, PRN as needed for nausea/vomiting, # 14 tablet, 0 Refills, Maintenance, 10/13/23 13:52:00 EST, DIS Tablet, [facility] #[id number], Partial fill upon patient request if the prescription is for a schedule I... Start Date: 10/13/23 Status: Ordered prazosin 2 mg oral capsule 1 capsule = 2 mg, By Mouth, Daily at bedtime, if PO intake is low or BP low below 110/70 only take one cap, # 30 capsule, 4 Refills, Maintenance, 08/10/23 14:14:00 EST, [facility] #[id number], Partial fill upon patient request if the prescription... Start Date: 08/10/23 Stop Date: 01/07/24 Status: Ordered Protonix 40 mg oral delayed release tablet = 40 mg, By Mouth, 2 times a day, # 60 tablet, 1 Refills, Maintenance, 08/27/23 8:49:00 EST, [facility], 170, cm, 08/27/23 7:32:00 EST, Height, 99, kg, 08/18/23 9:13:00 EST, Dry Weight Start Date: 08/27/23 Status: Ordered Solu-CORTEF Act-O-Vial 100 mg injection See Instructions, use daily SQ for adrenal insufficiency. 14 mg qam and 7 mg qpm please provide extra 2 mg vial for stress dosing., # 8 each, 11 Refills, Soft Stop, 05/27/23 14:16:00 EDT, Powder, [facility] #[id number], Partial fill upon patient... Start Date: 05/27/23 Status: Ordered spironolactone 25 mg oral tablet 1, tablet, By Mouth, Daily, # 30 tablet, Refills 0, Maintenance, 09/10/23 16:43:00 EST, Route to Pharmacy Electronically, [facility] #[id number], 170, cm, 08/27/23 7:32:00 EST, Height, 99, kg, 08/18/23 9:13:00 EST, Dry Weight Start Date: 09/10/23 Status: Ordered Wellbutrin SR 100 mg/12 hours oral tablet, extended release 1 tablet = 100 mg, By Mouth, Daily, # 30 tablet, 4 Refills, Maintenance, 08/10/23 14:26:00 EST, [facility] #[id number], Partial fill upon patient request if the prescription is for a schedule IIopioid drug., 170, cm, 08/05/23 3:21:00 EST, Height... Start Date: 08/10/23 Stop Date: 01/07/24 Status: Ordered Problem List Condition Confirmation Course Effective Dates Status H ealth Status Informant Abdominal pain Confirmed Active Asthma Confirmed Active Pacemaker, Biotronik, inserted 10/29/14 1 Confirmed Active Chest pain Confirmed Active Eating disorder Confirmed Active Essential hypertension Confirmed Active Gastroesophageal reflux disease Confirmed Active S/p REFUGIO-BSO Confirmed Active Hyperlipidemia with target LDL less than 100 Confirmed Active Adrenal insufficiency Confirmed Active Mast cell disease Confirmed Active Normal coronary arteries Confirmed Active Obese class I Confirmed Active Ocular migraine Confirmed Active Opioid dependence 2 Confirmed Active Personality disorder Confirmed Active PTSD (post-traumatic stress disorder) Confirmed Active PTSD (post-traumatic stress disorder) Confirmed Active MDD (major depressive disorder), recurrent episode, mild Confirmed Active SVT (supraventricular tachycardia) Confirmed Active 1MRI compatible 2IAROGENIC Social History [...] information Care Team Personnel Name: Dash WILCOX (DE) , Paola Anderson Position: [facility] Outreach Member Role: PCP Address: Address: [address] [place] [id number] [place] Name: Daina Ibrahim RN Position: [facility] ED RN W/OE and Tasks Member Role: Primary Care Nurse Name: Madeline Baird RN Position: [facility] ED RN W/OE and Tasks Member Role: Primary Care Nurse Name: Teresa Carpio Position: S RN Member Role: Primary Care Nurse Name: Inge Elizabeth RN Position: [facility] SN RN Member Role: Primary Care Nurse Name: Kelley Prasad RN Position: [facility] ED RN W/OE and Tasks Member Role: Primary Care Nurse Name: Cindy Medeiros RN Position: [facility] RN Member Role: Primary Care Nurse Name: Linnette De La O RN Position: [facility] H[facility]PITAL SCIENTIST Member Role: Primary Care Nurse Name: Alina Castillo NP Position: [facility] Associate Professional Member Role: Primary Care Nurse Address: Address: [address] [place] [address] [address]- [place] Name: Mary Anne Kilpatrick RN Position: [facility] MR W/ Merge Member Role: Primary Care Nurse Name: Kira Medellin RN Position: [facility] RN Member Role: Primary Care Nurse Name: Nicole Hernández RN Position: [facility] RN Member Role: Primary Care Nurse Name: Lindsay Srinivasan CNM Position: [facility] Geotechnician Member Role: Primary Care Nurse Address: Address: [address] [place] [address]- Name: Bea Brown RN Position: [facility] RN Member Role: Primary Care Nurse Name: Kiana Sabillon RN Position: [facility] RN Member Role: Primary Care Nurse Name: Bobby Wilson RN Position: [facility] Outreach Member Role: Primary Care Nurse Name: Larissa Olson [place] Position: [facility] RN Member Role: Primary Care Nurse Name: Karen Roa RN Position: [facility] ED RN W/OE and Tasks Member Role: Primary Care Nurse Name: Mary Alice Stevens RN Position: [facility] RN Member Role: Primary Care Nurse Name: Beverly Grey Position: [facility] RN Member Role: Primary Care Nurse Name: Lani Gray RN Position: [facility] RN Member Role: Primary Care Nurse Name: Alexy Geronimo RN Position: [facility] ED RN W/OE and Tasks Member Role: Primary Care Nurse Name: Raúl Rudolph DO Position: [facility] PASTA PRESS OPERATOR MD Member Role: Lifetime PASTA PRESS OPERATOR Physician Address: Address: [address] [place] [address]- Name: Evelyn Haynes RN Position: [facility] RN Member Role: Primary Care Nurse Name: Crissy Metzger RN Position: [facility] RN Member Role: Primary Care Nurse Name: Elisa Gilbert RN Position: [facility] RN Member Role: Primary Care Nurse Name: Corina Solorio RN Position: [facility] AMB Nurse Member Role: Primary Care Nurse Name: Domigno RNShawnee Position: [facility] ED RN W/OE and Tasks Member Role: Primary Care Nurse Name: Ana Estrada RN Position: [facility] RN Member Role: Primary Care Nurse Name: Erna Douglass RN Position: [facility] RADHA Office Staff Member Role: Primary Care Nurse Name: Keyana Ndiaye RN Position: [facility] Hospital Tip Scourer Member Role: Primary Care Nurse Name: Grace Verma RN Position: [facility] RN Member Role: Primary Care Nurse Name: Anabella Nicholson RN Position: [facility] AMB Nurse Member Role: Primary Care Nurse Name: Brenda Tomas RN Position: [facility] Outreach Member Role: Primary Care Nurse Name: Nancy Gallagher RN Position: [facility] Tip Scourer Member Role: Primary Care Nurse Name: Evelyn Allen RN Position: [facility] OB RN Member Role: Primary Care Nurse Name: Jackelin Watt RN Position: [facility] RN Member Role: Primary Care Nurse Name: Raymundo Elizabeth RN Position: [facility] SN RN Member Role: Primary Care Nurse Name: Raymundo Beard RN Position: [facility] RN Member Role: Primary Care Nurse Name: Opal Calderon RN Position: [facility] RN Member Role: Primary Care Nurse Name: Yadiel Warner RN Position: [facility] SN RN Member Role: Primary Care Nurse Care Team Related Persons Name: BONITA IBRAHIMSSE Address: [address], [place] Name: GIANLUCA IBRAHIM Address: [address], [place] Name: ABBIE IBRAHIM Address: [address], [place] Name: SIM CERDA Name: DIANE CERDA Address: [address] [place] [address] Name: SOLO CORRIGAN Address: [address], [place] Name: SOLO FLORES Address: [address], [place] Name: RAYMUNDO MAYFIELD Address: [address] [place] [address]
--- OUTSIDE RECORDS SUMMARY | 2024-01-27 11:24 | XMS_ITS | Continuity of Care Document ---
Author Organization [facility] Address [address] [place] [address]- Care Team Providers Care Electric Furnace Operator Name Role Phone Bienvenido WILCOX, Agustín Joaquin Primary Care Physician [phone] Encounter [facility] Date(s): 03/19/23 - 04/18/[address] [address] Allergies, Adverse Reactions, Alerts Substance Reaction [...] Other : Medications (Vitamin D3) Cholecalciferol 400 HALFWAY units/mL oral syringe 1 mL = 10 [...] Dry Weight Start Date: 04/21/22 Status: Ordered Albuterol (Eqv-ProAir HFA) 90 mcg/inh inhalation aerosol 2 puffs, Inhalation, Every 6 hours, # 1 each, 3 Refills, Maintenance, 08/20/20 11:21:00 EST, Partial fill upon patient request if the prescription is for a schedule II opioid drug., 170, cm, 08/20/2010:54:00 EST, Height, 90.5, kg, 07/09/20 23:20:00 E... Start Date: 08/20/20 Status: Ordered Alcohol Pads See Instructions, # 200 each, Refills 3, Tot. Refills 3, Maintenance, use twice daily with hydrocortisone injections SQ for adrenal insuff. 90 day supply, 04/20/22 10:56:00 EDT, Supply, 170, cm, 04/17/22 10:59:00 EDT, Height, 80.9, kg, 01/06/22 14:39:... Start Date: 04/20/22 Stop Date: 08/18/22 Status: Ordered amLODIPine 5 mg oral tablet 5 mg, 1, tablet, By Mouth, Daily, # 90 tablet, Refills 5, Tot. Refills 5, Maintenance, 12/31/22 14:22:00 EDT, Route to Pharmacy Electronically, [facility] #[id number], Partial fill upon patient request if the prescription is for a schedule II opi... Start Date: 12/31/22 Status: Ordered Aspirin Low Dose 81 mg oral delayed release tablet 1 tablet, By Mouth, Daily, # 30 tablet, 3 Refills, Maintenance, 08/17/22 15:43:00 EST, [email or web address] #[id number], 170, cm, 05/13/22 17:18:00 EDT, Height, 88.8, kg, 05/13/22 17:18:00 EDT, Dry Weight Start Date: 08/17/22 Status: Ordered atorvastatin 40 mg oral tablet 1 tablet = 40 mg, By Mouth, Daily, 0 Refills, Maintenance, 03/18/23 16:25:00 EDT, Partial fill uponpatient request if the prescription is for a schedule II opioid drug. Start Date: 03/18/23 Status: Ordered Banophen 25 mg oral tablet 2 tablet = 50 mg, By Mouth, 3 times a day, PRN for allergy symptoms, # 30 tablet, 0 Refills, Maintenance, 12/30/20 1:13:00 EDT, Tablet, Partial fill upon patient request if the prescription is for a schedule II opioid drug. Start Date: 12/30/20 Status: Ordered famotidine 20 mg oral tablet 20 mg, 1, tablet, By Mouth, 2 times a day, # 180 tablet, Refills 0, Tot. Refills 0, Maintenance, 01/08/21 13:59:00 EDT, Route to Pharmacy Electronically, [email or web address] #[id number], Partial fill upon patient request if the prescription is for a sched... Start Date: 01/08/21 Status: Ordered Flonase 50 mcg/inh nasal spray 2 sprays, Nares, Both, 2 times a day, PRN Congestion, # 16 Gm, 0 Refills, Maintenance, 08/20/20 11:17:00 EST, [place], [email or web address] #[id number], Partial fill upon patient request if the prescriptionis for a schedule II opioid drug., 170, cm, 2... Start Date: 08/20/20 Status: Ordered gabapentin 300 mg oral capsule 300 mg, 1, capsule, By Mouth, 2 times a day, # 60 capsule, Refills 4, Tot. Refills 4, Maintenance, 11/11/22 15:13:00 EST, Route to Pharmacy Electronically, [email or web address] #[id number], Partial fill upon patient request if the prescription is for a jose... Start Date: 11/11/22 Stop Date: 04/10/23 Status: Ordered Insulin Syringe, BD Ultra-Fine 1 cc 31 G x 8 mm (5/16in) See Instructions, # 60 each, Refills 11, Tot. Refills 11, Maintenance, use twice daily with solucortef, 04/20/22 10:54:00 EDT, Supply, 170, cm, 04/17/22 10:59:00 EDT, Height, 80.9, kg, 01/06/22 14:39:00 EDT, Dry Weight Start Date: 04/20/22 Status: Ordered isosorbide mononitrate 30 mg oral tablet, extended release 30 mg, 1, tablet, By Mouth, 2 times a day, # 180 tablet, Refills 3, Tot. Refills 3, Maintenance, 12/31/22 14:22:00 EDT, Route to Pharmacy Electronically, [email or web address] #[id number], Partial fill upon patient request if the prescription is for a sched... Start Date: 12/31/22 Stop Date: 12/26/23 Status: Ordered KlonoPIN 1 mg oral tablet 1 tablet = 1 mg, By Mouth, 2 times a day, dose is BID, # 60 tablet, 4 Refills, Maintenance, 03/10/23 15:33:00 EDT, [email or web address] #[id number], NO EARLY REFILLS, 170, cm, 02/01/23 7:48:00 EDT, Height, 96, kg, 02/01/23 7:48:00 EDT, Dry Weight Start Date: 03/10/23 Stop Date: 08/07/23 Status: Ordered lidocaine 1.8% topical film 1 patch, Topically, Daily, leave on up to 12 hours, # 30 each, 0 Refills, Maintenance, 08/24/19 8:56:45 EST, Film Start Date: 08/24/19 Status: Ordered Melatonin See Instructions, 0 Refills, Maintenance, 03/22/23 3:39:00 EDT, Partial fill upon patient request if the prescription is for a schedule II opioid drug. Start Date: 03/22/23 Status: Ordered Metoprolol Tartrate 100 mg oral tablet 1 tablet = 100 mg, By Mouth, 2 times a day, # 60 tablet, 0 Refills, Maintenance, 12/31/22 14:21:00 EDT, [email or web address] #[id number], Partial fill upon patient request if the prescription is for a schedule II opioid drug., 170, cm, 12/31/22 13:57:00 ED... Start Date: 12/31/22 Status: Ordered nitroglycerin 0.4 mg sublingual tablet 1 tablet, Sublingual, Every 5 minutes, PRN NEEDED FOR CHEST PAIN MAX 3 DOSES IN 15 MINUTES IF PAIN PERSISTS CALL 911, # 100 tablet, 3 Refills, Maintenance, 12/21/22 11:43:00 EDT, [email or web address] #[id number], 170, cm, 05/13/22 17:18:00 EDT, Height,... Start Date: 12/21/22 Status: Ordered ondansetron 8 mg oral tablet, disintegrating 1 tablet = 8 mg, By Mouth, 3 times a day, PRN Nausea & Vomiting, # 30 tablet, 0 Refills, Maintenance, 12/26/20 12:55:00 EDT, [email or web address] #[id number], Partial fill upon patient request if the prescription is for a schedule II opioid drug., 170, cm,... Start Date: 12/26/20 Status: Ordered Potassium Chloride = 40 mEq, By Mouth, 2 times a day, 0 Refills, Maintenance, 01/20/21 5:39:00 EDT, Partial fill upon patient request if the prescription is for a schedule II opioid drug. Start Date: 01/20/21 Status: Ordered prazosin 2 mg oral capsule 2 capsule = 4 mg, By Mouth, Daily at bedtime, if PO intake is low or BP low below 110/70 only take one cap, # 60 capsule, 4 Refills, Maintenance, 11/11/22 15:17:00 EST, [email or web address] #[id number], Partial fill upon patient request if the [...] 03/10/23 15:36:00 EDT, Route to Pharmacy Electronically, [email or web address] #[id number], Partial fill upon patient request if the [...] Refills, Soft Stop, 04/20/22 10:54:00 EDT, Powder, [email or web address] #[id number], Partial fill upon patient... Start Date: 04/20/22 Status: Ordered spironolactone 25 mg oral tablet 25 mg, 1, tablet, By Mouth, Daily, # 90 tablet, Refills 3, Tot. Refills 3, Maintenance, 09/13/22 16:11:00 EST, Route to Pharmacy Electronically, [email or web address] #[id number], Partial fill upon patientrequest if the prescription is for a schedule II op... Start Date: 09/13/22 Stop Date: 09/08/23 Status: Ordered traZODone 300 mg oral tablet 1 tablet = 300 mg, By Mouth, Daily at bedtime, # 30 tablet, 4 Refills, Maintenance, 11/11/22 15:09:00 EST, [email or web address] #[id number], Partial fill upon patient request if the prescription is for a schedule II opioid drug., 170, cm, 05/13/22 17:18:00... Start Date: 11/11/22 Stop Date: 04/10/23 Status: Ordered Problem List Condition Confirmation Course [...] Team Personnel Name: Daina Ibrahim RN Position: [facility] ED RN W/OE and Tasks Member Role: Primary Care Nurse Name: Madeline Baird RN Position: [facility] ED RN W/OE and Tasks Member Role: Primary Care Nurse Name: Teresa Carpio Position: [facility] RN Member Role: Primary Care Nurse Name: Inge Elizabeth RN Position: [facility] SN RN Member Role: Primary Care Nurse Name: Kelley Prasad RN Position: [facility] RN Member Role: Primary Care Nurse Name: Cindy Medeiros RN Position: [facility] RN Member Role: Primary Care Nurse Name: Linnette De La O RN Position: [facility] ENGRAVER COPPERPLATE Member Role: Primary Care Nurse Name: Alina Castillo NP Position: [facility] Associate Professional Member Role: Primary Care Nurse Address: Address: [address] [place] [address] [address] Name: Mary Anne Kilpatrick RN Position: [facility] MR W/ Merge Member Role: Primary Care Nurse Name: Agustín Faria MD Position: [facility] Outreach Member Role: PCP Address: Address: [address] Ag[place] [address]- [place] Name: Nicole Hernández RN Position: [facility] RN Member Role: Primary Care Nurse Name: Douglas Harris Position: [facility] Cardio/Pulm Mgr ([facility] Member Role: Primary Care Nurse Name: Lindsay Srinivasan CNM Position: [facility] Exhaust Emissions Automotive Technician Member Role: Primary Care Nurse Address: Address: [address] [facility] [place] [address]- [place] Name: Larissa Olson [place] Position: [facility] RN Member Role: Primary Care Nurse Name: Karen Roa RN Position: [facility] ED RN W/OE and Tasks Member Role: Primary Care Nurse Name: Mary Alice Stevens RN Position: [facility] RN Member Role: Primary Care Nurse Name: Beverly Grey Position: [facility] RN Member Role: Primary Care Nurse Name: Alexy Geronimo RN Position: [facility] RN Member Role: Primary Care Nurse Name: Raúl Rudolhp DO Position: [facility] MD Member Role: [facility] Physician Address: Address: [address] [place] [address] [place] [address]- [place] Name: Evelyn Haynes RN Position: [facility] RN Member Role: Primary Care Nurse Name: Crissy Metzger RN Position: [facility] RN Member Role: Primary Care Nurse Name: Elisa Gilbert RN Position: [facility] RN Member Role: Primary Care Nurse Name: Corina Solorio RN Position: [facility] SN RN Member Role: Primary Care Nurse Name: Shawnee Lane RN Position: [facility] ED RN W/OE and Tasks Member Role: Primary Care Nurse Name: Erna Douglass RN Position: [facility] SN RN Member Role: Primary Care Nurse Name: Keyana Ndiaye RN Position: [facility] Hospital Art Professor Member Role: Primary Care Nurse Name: Anabella Nicholson RN Position: [facility] AMB Nurse Member Role: Primary Care Nurse Name: Brenda Tomas RN Position: [facility] Outreach Member Role: Primary Care Nurse Name: Ramona Ybarra RN Position: [facility] RN Member Role: Primary Care Nurse Address: Address: [address] [place] [address]- Name: Nancy Gallagher RN Position: [facility] Hospital Art Professor Member Role: Primary Care Nurse Name: Evelyn Allen RN Position: [facility] OB RN Member Role: Primary Care Nurse Name: Jackelin Watt RN Position: [facility] RN Member Role: Primary Care Nurse Name: Raymundo Elizabeth RN Position: [facility] SN RN Member Role: Primary Care Nurse Name: Opal Calderon RN Position: [facility] RN Member Role: Primary Care Nurse Name: Yadiel Warner RN Position: [facility] SN RN Member Role: Primary Care Nurse Care Team Related Persons Name: BARTOLOME IBRAHIM Address: [address] [place] [address] Name: GIANLUCA IBRAHIM Address: [address] [place] [address] Name: ABBIE IBRAHIM Address: [address] [place] [address] Name: SIM CERDA Name: DIANE CERDA Address: home [address] [place] [address] Name: SOLO CORRIGAN Address: [address] [place] [address] Name: SOLO FLORES Address: [address] [place] [address] Name: RAYMUNDO MAYFIELD Address: home [address] [place] [address]
--- OUTSIDE RECORDS SUMMARY | 2024-01-27 11:24 | XMS_ITS | Continuity of Care Document ---
Author Organization [facility] Address [address] [place] [address]- Care Team Providers Care Signals Collector/Analyst Name Role Phone Maranda WILCOX, Silvio Martinez Primary Care Physician Encounter [facility] Date(s): 03/19/20 - 05/10/20 [facility] [address] [place] [address]- [facility] Attending Physician: Silvio Low MD Admitting Physician: Silvio Low MD Allergies, Adverse Reactions, Alerts Substance Reaction Severity Status propranolol Rash Active Zoloft tachycardia n/v Active Nardil Palpitations - rapid N&V - Nausea and vomiting C/O - a headache Active Inderal n/v,tachcardia Active Cefzil Hives Active Reglan severe anxiety~panic Active Xarelto rash Active Lexapro n/v Active Haldol Active Compazine severe anxiety Hives Active Immunizations Given and Recorded Vaccine Date [...] Note: vis 3Early/Late Reason: Other : Medications 21G 3mL syringe 21G 3mL syringe, See Instructions, # 25 each, Refills 0, Tot. Refills 0, Maintenance, use IM with hydrocortisone as needed for adrenal crisis, 05/02/20 12:59:00 EDT, Supply, 169, cm, 07/27/20 17:38:00 EDT, Height, 85, kg, 03/15/20 2:33:00 [...] mL, Refills 11, Tot. Refills 11, Maintenance, [facility]: [id number], 05/08/20 16:20:00 EDT, Supply, 169, cm, 04/15/20 [...] capsule, 1 Refills, Maintenance, 10/21/19 11:17:00 EST, [facility] #[id number], 1 capsule By Mouth 3 times a [...] 04/09/21 14:58:00 EDT, 04/09/20 14:57:00 EDT, Tablet, [facility] #[id number], 169, cm, 04/05/20 12:55:00 EDT, Height, 85, kg, 03/15/20 2:33:00 EDT, Dry Weight Start Date: 04/09/20 Stop Date: 04/09/21 Status: Ordered ibuprofen 800 mg oral tablet 800 mg, 1, tablet, By Mouth, 3 times a day, Maintenance, 03/08/20 16:56:00 EDT Start Date: 03/08/20 Status: Ordered lidocaine 1.8% topical film 1 [...] Acute 04/30/21 16:58:00 EDT, 04/30/20 16:57:00 EDT, [facility] #[id number], 169, cm, 04/15/20 17:38:00 EDT, Height, 85, kg, 03/15/20 2:33:00 EDT, Dry Weight Start Date: 04/30/20 Stop Date: 04/30/21 Status: Ordered methylprednisolone 2 gm injectable powder for injection See Instructions, inject 4 grams IM for adrenal crisis, # 48 Gm, 11 Refills, Acute 06/08/21 12:08:00 EDT, 05/03/21 10:04:00 EDT, [facility]/pharmacy #[id number], 169, cm, 04/15/20 17:38:00 EDT, Height, 85, kg, 03/15/20 2:33:00 EDT, Dry Weight Start Date: 05/03/21 Stop Date: 06/08/21 Status: Ordered methylprednisolone 2 gm injectable powder for injection See Instructions, inject 4 grams IM for adrenal crisis, # 48 Gm, 3 Refills, Acute 05/03/21 10:04:00EDT, 05/03/20 10:03:00 EDT, [facility] #[id number], 169, cm, 04/15/20 17:38:00 EDT, Height, 85, kg, 03/15/20 2:33:00 EDT, Dry Weight Start Date: 05/03/20 Stop Date: 05/03/21 Status: Ordered methylprednisolone 2 gm injectable powder for injection See Instructions, inject 4 grams IM for adrenal crisis, # 48 Gm, 3 Refills, Acute 05/03/21 11:58:00EDT, 05/03/21 10:04:00 EDT, [facility], 169, cm, 04/15/20 17:38:00 EDT, [...] 11 Refills, Soft Stop, 05/03/20 16:07:00 EDT, [facility] #[id number], 169, cm, 04/15/20 17:38:00 EDT, Height, 85, [...] Refills, Maintenance, 12/05/19 20:49:00 EDT, DIS Tablet, [facility] #[id number], 170, cm, 12/05/19 19:19:00 EDT, Height, 88.7, kg, 12/05/19 19:19:00 EDT, Dry Weight Start Date: 12/05/19 Status: Ordered Problem List Condition Effective Dates Status Health Status Inform ant Asthma(Confirmed) Active Pacemaker, Biotronik, insert ed 10/29/14(Confirmed) 1 Active Chest pain(Confirmed) Active Colitis(Confirmed) Active Essential hypertension(Confirmed) Active Gastroesophageal reflux disease(Confirmed) [...]
--- OUTSIDE RECORDS SUMMARY | 2024-01-27 11:24 | XMS_ITS | Continuity of Care Document ---
Author Organization [facility] Address [address] [place] [address]- Care Team Providers Care Mechanism Assembler Name Role Phone Maranda WILCOX, Silvio Martinez Primary Care Physician Encounter [facility] Date(s): 11/12/20 - 12/12/20 [facility] [address] [place] [address]- Allergies, Adverse Reactions, Alerts Substance Reaction Severity [...] capsule, 1 Refills, Maintenance, 10/21/19 11:17:00 EST, [facility] #[id number], 1 capsule By Mouth 3 times a [...] 04/09/21 14:58:00 EDT, 04/09/20 14:57:00 EDT, Tablet, [facility] #[id number], 169, cm, 04/05/20 12:55:00 EDT, Height, 85, [...] 3 Refills, Maintenance, 10/16/20 16:21:00 EST, Tablet, [facility] #[id number], Partial fill upon patient request if the prescription is for a schedul... Start Date: 10/16/20 Stop Date: 02/13/21 Status: Ordered ondansetron 4 mg oral tablet 1 tablet = 4 mg, By Mouth, Every 8 hours, PRN Nausea & Vomiting, # 20 tablet, 0 Refills, Maintenance, 06/18/20 16:48:00 EDT, Tablet, [facility] #[id number], 170, cm, 06/18/20 15:14:00 EDT, Height, 90.4, kg, 06/18/20 15:14:00 EDT, Dry Weight Start Date: 06/18/20 Stop Date: 06/25/20 Status: Ordered ondansetron 8 mg oral tablet, disintegrating 1 tablet = 8 mg, By Mouth, 3 times a day, # 10 tablet, 0 Refills, Maintenance, 10/30/20 17:44:00 EST, [facility] #[id number], Partial fill upon patient request if the [...] Refills, Soft Stop, 10/02/20 11:57:00 EST, Powder, [facility] #[id number], Partial fill upon patient... Start Date: 10/02/20 [...]
--- OUTSIDE RECORDS SUMMARY | 2024-01-27 11:24 | XMS_ITS | Continuity of Care Document ---
Author Organization [facility] Address [address] [place] [address]- Care Team Providers Care Watchmaker Apprentice Name Role Phone Silvio Low MD Primary Care Physician Encounter [facility] Date(s): 09/18/20 - 09/18/[address] [address]- Discharge Disposition: A-D/C Home Attending Physician: Sourav Brownlee MD Admitting Physician: Sourav Brownlee MD Referring Physician: Not on Staff, Referring [...] capsule, 1 Refills, Maintenance, 10/21/19 11:17:00 EST, [facility] #[id number], 1 capsule By Mouth 3 times a [...] 04/09/21 14:58:00 EDT, 04/09/20 14:57:00 EDT, Tablet, [facility] #[id number], 169, cm, 04/05/20 12:55:00 EDT, Height, 85, kg, 03/15/20 2:33:00 EDT, Dry Weight Start Date: 04/09/20 Stop Date: 04/09/21 Status: Ordered ibuprofen 800 mg oral tablet 800 mg, 1, tablet, By Mouth, 3 times a day, Maintenance, 03/08/20 16:56:00 EDT Start Date: 03/08/20 Status: Ordered Ketorolac Inj 15 mg, Injection, IV Push Slowly, Once, Routine, 09/18/20 14:00:00 EST, Stop date 09/18/20 14:00:00EST Start Date: 09/18/20 Stop Date: 09/18/20 Status: Completed KlonoPIN 1 mg oral tablet 2.5 tablet = 2.5 mg, By Mouth, Daily at bedtime, 0.5 mg TID 1 mg at hs, # 75 tablet, 3 Refills, Maintenance, 05/28/20 11:56:00 EDT, [facility] #[id number], 170, cm, 05/27/20 0:11:00 EDT, Height,90.4, kg, [...] Acute 06/08/21 12:08:00 EDT, 05/03/21 10:04:00 EDT, [facility]/pharmacy #[id number], 169, cm, 04/15/20 17:38:00 EDT, Height, 85, kg, 03/15/20 2:33:00 EDT, Dry Weight Start Date: 05/03/21 Stop Date: 06/08/21 Status: Ordered Nicotine = 21 mg, Topically, Daily, 0 Refills, Maintenance, 03/08/20 16:52:00 EDT, Patch Start Date: 03/08/20 Status: Ordered ondansetron 4 mg oral tablet 1 tablet = 4 mg, By Mouth, Every 8 hours, PRN Nausea & Vomiting, # 20 tablet, 0 Refills, Maintenance, 06/18/20 16:48:00 EDT, Tablet, [facility] #[id number], 170, cm, 06/18/20 15:14:00 EDT, Height, 90.4, [...] 11 Refills, Soft Stop, 07/10/20 6:01:00 EDT, [facility] #[id number], 170, cm, 07/10/20 2:42:00 EDT, Height, 90.5, kg, 07/09/20 23:20:00 EDT, Dry Weight Start Date: 07/10/20 Status: Ordered Solu-CORTEF 100 mg preservative-free injection = 100 mg, Intramuscular, Once, prn adrenal crisis, # 5 each, 11 Refills, Soft Stop, 05/03/20 16:07:00 EDT, [facility] #[id number], 169, cm, 04/15/20 17:38:00 EDT, Height, 85, [...] thrombo embolism), chronic(Confirmed) Active 1MRI compatible 2IAROGENIC Vital Signs Most recent to oldest [Reference Range]: 1 2 3 Height 170 cm (09/18/20 12:56 PM) Weight 93 kg (09/18/20 12:56 PM) Oxygen Saturation [94-100 %] 100 % (09/18/20 2:29 PM) 100 % (09/18/20 12:56 PM) Pulse Rate [55-90 bpm] 81 bpm (09/18/20 2:29 PM) 84 bpm (09/18/20 12:56 PM) Blood Pressure [90-138/55-84 mm Hg] 117/77mm Hg (09/18/20 2:29 PM) 132/73mm Hg (09/18/20 12:56 PM) Respiratory Rate [16-30 br/min] 18 br/min (09/18/20 2:29 PM) 18 br/min (09/18/20 1:50 PM) 18 br/min (09/18/20 12:56 PM) Temperature [96.8-100.4 DegF] 97.6 DegF (09/18/20 12:56 PM) Mode of Delivery (Oxygen) Room air (09/18/20 12:56 PM) Blood pressure sites Arm, left (09/18/20 2:29 PM) Arm, left (09/18/20 12:56 PM) Temperature Route Temporal (09/18/20 12:56 PM) Dry Weight 93 kg (09/18/20 12:56 PM) Social History Social History Type Response Smoking Status 10 or more cigarette s (1/2 pack or more)/day in last 30 days entered on: 08/06/19 Sex
--- OUTSIDE RECORDS SUMMARY | 2024-01-27 11:24 | XMS_ITS | Continuity of Care Document ---
Author Organization [facility] Address [address] [place] [address]- Care Team Providers Care Ranger Aide Name Role Phone Mariella OCAMPO, Amelia Primary Care Physician [phone] Encounter [facility] Date(s): 01/16/20 - 01/17/[address] [address]- [facility] Discharge Disposition: A-D/C Home Attending Physician: Jessica Miller MD Admitting Physician: Jessica Miller MD Referring Physician: Not on Staff, Referring [...] Stop 02/18/20 11:16:00EDT, 10/21/19 11:16:00 EST, Tablet, [facility] #[id number], 170, cm, 10/20/19 13:48:00 EST, Height, 92.3, kg, 10/15/19 6:38:00 EST, Dry Weight Start Date: 10/21/19 Stop Date: 02/18/20 Status: Ordered atorvastatin 20 mg oral tablet 1 tablet = 20 mg, By Mouth, Daily, # 90 tablet, 1 Refills, Maintenance, 10/21/19 11:16:00 EST, Tablet, [facility] #[id number], 170, cm, 10/20/19 13:48:00 EST, Height, 92.3, [...] 02/21/19 8:58:39 EDT, Route to Pharmacy Electronically, [id number], [facility] 3 Start Date: 02/21/19 Stop Date: 04/22/19 Status: Ordered Creon 36,000 units oral delayed release capsule 1 capsule, By Mouth, 3 times a day, with each meal and snack, # 270 capsule, 1 Refills, Maintenance, 10/21/19 11:17:00 EST, [facility] #[id number], 1 capsule By Mouth 3 times a [...] Refills, Maintenance Start Date: 06/18/11 Status: Ordered ibuprofen 800 mg oral tablet [...] 08/24/19 9:15:39 EST, Route to Pharmacy Electronically, [id number], [facility] #[id number], 170, cm, 08/24/19 8:38:44 EST, H... Start [...] ER Tablet Start Date: 12/05/19 Status: Ordered Protonix 20 mg oral delayed release tablet 1 tablet = 20 mg, By Mouth, Daily, 0 Refills, Maintenance, 01/16/20 22:31:00 EDT Start Date: 01/16/20 Status: Ordered Senna = 8.5 mg, By Mouth, 2 times a day, 0 Refills, Maintenance, 11/06/16 11:22:55 Start Date: 11/06/16 Status: Ordered spironolactone 25 mg oral tablet 12.5 mg, 0.5, tablet, By Mouth, Daily, # 15 tablet, Refills 6, Tot. Refills 6, Maintenance, 02/21/19 8:59:46 EDT, Route to Pharmacy Electronically, [id number], [facility] 3 Start Date: 02/21/19 Stop Date: 09/19/19 [...] Refills, Maintenance, 12/05/19 20:49:00 EDT, DIS Tablet, [facility] #[id number], 170, cm, 12/05/19 19:19:00 EDT, Height, 88.7, [...] Vitamin B6 deficiency(Confirmed) Active 1MRI compatible 2IAROGENIC Vital Signs Most recent to oldest [Reference Range]: 1 2 Height 170 cm (01/16/20 10:29 PM) Weight 81.6 kg (01/16/20 10:29 PM) Oxygen Saturation [94-100 %] 99 % (01/17/20 12:06 AM) 100 % (01/16/20 10: PM) Pulse Rate [55-90 bpm] 65 bpm (01/17/20 12:06 AM) 87 bpm (01/16/20 10: PM) Blood Pressure [90-138/55-84 mm Hg] 127/ 78mm Hg (01/17/20 12:06 AM) 128/64mm Hg (01/16/20 10: PM) Respiratory Rate [16-30 br/min] 18 br/mi n (01/17/20 12:06 AM) 16 br/min (01/16/20 10:29 PM) Temperature [96.8-100.4 DegF] 98.3 DegF (01/17/20 12:06 AM) 98.8 DegF (01/16/20 10:29 PM) Mode of Delivery (Oxygen) Room air (01/17/20 12:06 AM) Room air (01/16/20 10:29 PM) Blood pressure sites Arm, left (01/17/20 12:06 AM) Arm, left (01/16/20 10:29 PM) Temperature Route Oral (01/17/20 12:06 AM) Oral (01/16/20 10:29 PM) Dry Weight 81.6 kg (01/16/20 10:29 PM) Weight Obtained Via Standing scale (01/16/20 10:29 PM) Dry Weight Obtained Via Standing scale (01/16/20 10:29 PM) Social History Social History Type Response Smoking Status 10 or more cigarette s (1/2 pack or more)/day in last 30 days entered on: 08/06/19 Sex
--- OUTSIDE RECORDS SUMMARY | 2024-01-27 11:24 | XMS_ITS | Continuity of Care Document ---
Author Organization [facility] Address [address] [place] [address] [address] [place] [address]- Care Team Providers Care Sheeting Puller Name Role Phone Dash WILCOX (SD), Paola Anderson Primary Care Physician Encounter [facility] Date(s): 10/13/23 - 11/12/23 [facility] [address] [place] [address]- Attending Physician: Maximo Cano Admitting Physician: AdmtrMaximo Referring Physician: Admtr ArRajendra Allergies, Adverse Reactions, [...] 8:46:00 EST Start Date: 08/18/23 Status: Ordered Ativan 1 mg oral tablet 1 tablet = 1 mg, By Mouth, 3 times a day, PRN for anxiety, # 11 tablet, 0 Refills, Maintenance, 07/15/23 11:42:00 EDT, Tablet, [facility] #[id number], Partial fill upon patient request if the prescription is for a schedule II opioid drug., 170, c... Start Date: 07/15/23 Status: Ordered atorvastatin 40 mg oral tablet 1 tablet = 40 mg, By Mouth, Daily, Maintenance, 08/18/23 8:47:00 EST, Tablet Start Date: 08/18/23 Status: Ordered cromolyn 20 [...] 4 Refills, Maintenance, 08/10/23 14:21:00 EST, Tablet, [facility] #[id number], Partial fill upon patient request if the prescription is fora schedule II opioid drug., 170, cm, 08/05/23 3:21:... Start Date: 08/10/23 Stop Date: 01/07/24 Status: Ordered Metoprolol Tartrate 100 mg oral tablet 1 tablet, By Mouth, 2 times a day, # 60 tablet, 4 Refills, Maintenance, 10/11/23 9:06:00 EST, [facility] #[id number], 170, cm, 09/26/23 11:43:00 EST, Height, 93, [...] 0 Refills, Maintenance, 05/13/23 10:33:00 EDT, Tablet, [facility] #[id number], Partial fill upon patient request if the prescription is for a schedule II opioid drug., 1... Start Date: 05/13/23 Stop Date: 05/16/23 Status: Ordered ondansetron 4 mg oral tablet, disintegrating 1 tablet = 4 mg, By Mouth, Every 6 hours, PRN as needed for nausea/vomiting, # 14 tablet, 0 Refills, Maintenance, 10/13/23 13:52:00 EST, DIS Tablet, [facility] #[id number], Partial fill upon patient request if the prescription is for a schedule I... Start Date: 10/13/23 Status: Ordered potassium chloride 10 mEq oral tablet, extended release 2 tablet = 20 mEq, By Mouth, Daily, # 14 tablet, 0 Refills, Soft Stop, 08/27/23 8:49:00 EST, ER Tablet, [facility] #[id number], Partial fill upon patient request if the prescription is for a schedule II opioid drug., 170, cm, 08/27/23 7:32:00 EST... Start Date: 08/27/23 Stop Date: 09/03/23 Status: Ordered prazosin 2 mg oral capsule 1 capsule = 2 mg, By Mouth, Daily at bedtime, if PO intake is low or BP low below 110/70 only take one cap, # 30 capsule, 4 Refills, Maintenance, 08/10/23 14:14:00 EST, [facility] #[id number], Partial fill upon patient request if the [...] Refills, Soft Stop, 05/27/23 14:16:00 EDT, Powder, [facility] #[id number], Partial fill upon patient... Start Date: 05/27/23 Status: Ordered spironolactone 25 mg oral tablet 1, tablet, By Mouth, Daily, # 30 tablet, Refills 0, Maintenance, 09/10/23 16:43:00 EST, Route to Pharmacy Electronically, [facility] #[id number], 170, cm, 08/27/23 7:32:00 EST, Height, 99, kg, 08/18/23 9:13:00 EST, Dry Weight Start Date: 09/10/23 Status: Ordered Wellbutrin SR 100 mg/12 hours oral tablet, extended release 1 tablet = 100 mg, By Mouth, Daily, # 30 tablet, 4 Refills, Maintenance, 08/10/23 14:26:00 EST, [facility] #[id number], Partial fill upon patient request if the [...] information Care Team Personnel Name: Dash WILCOX (SD) , Paola Anderson Position: [facility] Outreach Member Role: PCP Address: Address: [address] [place] [phone] [place] Name: Daina Ibrahim RN Position: [facility] ED RN W/OE and Tasks Member Role: Primary Care Nurse Name: Madeline Baird RN Position: [facility] ED RN W/OE and Tasks Member Role: Primary Care Nurse Name: Teresa Carpio Position: [facility] RN Member Role: Primary Care Nurse Name: Inge Elizabeth RN Position: [facility] SN RN Member Role: Primary Care Nurse Name: Kelley Prasad RN Position: [facility] ED RN W/OE and Tasks Member Role: Primary Care Nurse Name: Cindy Medeiros RN Position: [facility] RN Member Role: Primary Care Nurse Name: Linnette De La O RN Position: [facility] THIRD MILLER Member Role: Primary Care Nurse Name: Alina Castillo NP Position: [facility] Associate Professional Member Role: Primary Care Nurse Address: Address: [address] [place] [id number]- Name: Gab Velarde RN Position: [facility] RN Member Role: Primary Care Nurse Name: Mary Anne Kilpatrick RN Position: [facility] MR W/ Merge Member Role: Primary Care Nurse Name: Nicole Hernández RN Position: [facility] RN Member Role: Primary Care Nurse Name: Lindsay Srinivasan CNM Position: [facility] Media Associate Member Role: Primary Care Nurse Address: Address: [address] [place] [address]- Name: Bea Brown RN Position: [facility] RN Member Role: Primary Care Nurse Name: Kiana Sabillon RN Position: [facility] RN Member Role: Primary Care Nurse Name: Larissa Olson [place] Position: [facility] RN Member Role: Primary Care Nurse Name: Karen Roa RN Position: [facility] ED RN W/OE and Tasks Member Role: Primary Care Nurse Name: Mary Alice Stevens RN Position: [facility] RN Member Role: Primary Care Nurse Name: Beverly Grey Position: [facility] RN Member Role: Primary Care Nurse Name: Alexy Geronimo RN Position: [facility] ED RN W/OE and Tasks Member Role: Primary Care Nurse Name: Raúl Rudolph DO Position: [facility] TELECOMMUNICATIONS LINESWORKER MD Member Role: [employer] TELECOMMUNICATIONS LINESWORKER Physician Address: Address: [address] [place] [address]- Name: Evelyn Haynes RN Position: [facility] RN Member Role: Primary Care Nurse Name: Crissy Metzger RN Position: [facility] RN Member Role: Primary Care Nurse Name: Elisa Gilbert RN Position: [facility] RN Member Role: Primary Care Nurse Name: Corina Solorio RN Position: [facility] AMB Nurse Member Role: Primary Care Nurse Name: Shawnee Lane RN Position: [facility] ED RN W/OE and Tasks Member Role: Primary Care Nurse Name: Ana Estrada RN Position: [facility] RN Member Role: Primary Care Nurse Name: Erna Douglass RN Position: [facility] SN RN Member Role: Primary Care Nurse Name: Keyana Ndiaye RN Position: [facility] Hospital Readers' Advisory Service Librarian Member Role: Primary Care Nurse Name: Grace Verma RN Position: [facility] RN Member Role: Primary Care Nurse Name: Anabella Nicholson RN Position: [facility] AMB Nurse Member Role: Primary Care Nurse Name: Brenda Tomas RN Position: [facility] Outreach Member Role: Primary Care Nurse Name: Ramona Ybarra RN Position: [facility] RN Member Role: Primary Care Nurse Address: Address: [address] [place] [id number]- [place] Name: Elliott THOMPSON, Nancy Joaquin Position: [facility] Hospital Readers' Advisory Service Librarian Member Role: Primary Care Nurse Name: Evelyn Allen RN Position: [facility] OB RN Member Role: Primary Care Nurse Name: Jackelin Watt RN Position: [facility] RN Member Role: Primary Care Nurse Name: Raymundo Elizabeth RN Position: [facility] SN RN Member Role: Primary Care Nurse Name: Opal Calderon RN Position: [facility] RN Member Role: Primary Care Nurse Name: Yadiel Warner RN Position: [facility] SN RN Member Role: Primary Care Nurse Care Team Related Persons Name: BARTOLOME IBRAHIM Address: home [address] [place], [place] Name: GIANLUCA IBRAHIM Address: [address] Name: ABBIE IBRAHIM Address: home [address], [place] Name: SIM CERDA Name: DIANE CERDA Address: [address] [address] Name: SOLO CORRIGAN Address: home [address] [place] [address] Name: SOLO FLORES Address: home [address] [place] [address] Name: RAYMUNDO MAYFIELD Address: home [address] [place] [address]
--- OUTSIDE RECORDS SUMMARY | 2024-01-27 11:24 | XMS_ITS | Continuity of Care Document ---
Author Organization [facility] Address [address] [place] [address]- Care Team Providers Care Floral Merchandiser Name Role Phone Maranda WILCOX, Silvio Martinez Primary Care Physician [place] [facility] [place] 04/15/[place] - 05/15/21 [facility] [address] [place] [address]- Attending Physician: Maximo Cano Admitting Physician: AdmMaximo diaz Referring Physician: AdmtrMaximo Allergies, Adverse Reactions, Alerts Substance Reaction Severity [...] tablet, 0 Refills, Maintenance, 12/26/20 12:55:00 EDT, [facility] #[id number], Partial fill upon patient request if the prescription is for a schedule II opioid drug., 170, cm,... Start Date: 12/26/20 Status: Ordered Potassium Chloride = 40 mEq, By Mouth, 2 times a day, 0 Refills, Maintenance, 01/20/21 5:39:00 EDT, Partial fill upon patient request if the prescription is for a schedule II opioid drug. Start Date: 01/20/21 Status: Ordered Potassium Chloride (Whf-Sqmd-Krz M20) 20 mEq oral tablet, extended release 1 tablet = 20 mEq, By Mouth, 2 times a day, # 10 tablet, 0 Refills, Maintenance, 01/20/21 7:48:00 EDT, [facility] #[id number], Partial fill upon patient request if the [...] Refills, Soft Stop, 04/15/21 10:31:00 EDT, Powder, [facility] #[id number], Partial fill upon patient request i... [...] 0 Refills, Maintenance, 01/20/21 7:49:00 EDT, Tablet, [facility] #[id number], Partial fill upon patient request if the [...]
--- OUTSIDE RECORDS SUMMARY | 2024-01-27 11:24 | XMS_ITS | Continuity of Care Document ---
Author Organization [facility] Address [address] [place] [address]- Care Team Providers Care Customer Relations Assistant Name Role Phone Mariella OCAMPO, Amelia Primary Care Physician [phone] Encounter [facility] [id number] Date(s): 03/02/20 - 03/02/[address] [address]- [facility] Discharge Disposition: A-D/C Home Attending Physician: Ashish Fitzgerald MD Admitting Physician: Ashish Fitzgerald MD Referring Physician: Not on Staff, Referring [...] 1 Refills, Maintenance, 10/21/19 11:16:00 EST, Tablet, [facility] #[id number], 170, cm, 10/20/19 13:48:00 EST, Height, 92.3, [...] 02/21/19 8:58:39 EDT, Route to Pharmacy Electronically, [id number], [facility] 3 Start Date: 02/21/19 Stop Date: 04/22/19 Status: Ordered Creon 36,000 units oral delayed release capsule 1 capsule, By Mouth, 3 times a day, with each meal and snack, # 270 capsule, 1 Refills, Maintenance, 10/21/19 11:17:00 EST, [facility] #[id number], 1 capsule By Mouth 3 times a [...] 15:52:36 EDT Start Date: 06/03/19 Status: Ordered nicotine 21 mg/24 hr transdermal film, extended release 1 patch, Topically, Daily, # 30 patch, 0 Refills, Maintenance, 06/03/19 15:45:39 EDT, Patch, 1 patch Topically Daily Start Date: 06/03/19 Status: Ordered Oxycodone = 15 mg, By Mouth, Every 6 hours, PRN Pain , Moderate, 0 Refills, Maintenance, 01/04/17 10:10:47 Start Date: 01/04/17 Status: Ordered Protonix 20 mg oral delayed release tablet 1 tablet = 20 mg, By Mouth, Daily, 0 Refills, Maintenance, 01/16/20 22:31:00 EDT Start Date: 01/16/20 Status: Ordered Senna = 8.5 mg, By Mouth, 2 times a day, 0 Refills, Maintenance, 11/06/16 11:22:55 Start Date: 11/06/16 Status: Ordered Vitamin D3 oral tablet 5,000 iu, By Mouth, Every week, # 30 tablet, 0 Refills, Maintenance, 09/24/17 10:55:41, Tablet Start Date: 09/24/17 Status: Ordered Zofran ODT 4 mg oral tablet, disintegrating 1 tablet = 4 mg, By Mouth, Every 8 hours, PRN Nausea & Vomiting, # 5 tablet, 0 Refills, Maintenance, 12/05/19 20:49:00 EDT, DIS Tablet, [facility] #[id number], 170, cm, 12/05/19 19:19:00 EDT, Height, 88.7, [...] [Reference Range]: 1 2 Height 170 cm (03/02/20 12:07 PM) Weight 86.5 kg (03/02/20 12:07 PM) Oxygen Saturation [94-100 %] 99 % (03/02/20 2:20 PM) 98 % (03/02/20 12:07 PM) Pulse Rate [55-90 bpm] 84 bpm (03/02/20 2:20 PM) 80 bpm (03/02/20 12:07 PM) Blood Pressure [90-138/55-84 mm Hg] 126/ 82mm Hg (03/02/20 2:20 PM) 129/83mm Hg (03/02/20 12:07 PM) Respiratory Rate [16-30 br/min] 16 br/mi n (03/02/20 2:20 PM) 16 br/min (03/02/20 12:07 PM) Temperature [96.8-100.4 DegF] 98.9 DegF (03/02/20 12:07 PM) Mode of Delivery (Oxygen) Room air (03/02/20 2:20 PM) Room air (03/02/20 12:07 PM) Blood pressure sites Arm, left (03/02/20 2:20 PM) Arm, left (03/02/20 12:07 PM) Temperature Route Temporal (03/02/20 12:07 PM) Dry Weight 86.5 kg (03/02/20 12:07 PM) Dry Weight Obtained Via Standing scale (03/02/20 12:07 PM) Social History Social History Type Response Smoking Status 10 or more cigarette s (1/2 pack or more)/day in last 30 days entered on: 08/06/19 Sex
--- OUTSIDE RECORDS SUMMARY | 2024-01-27 11:24 | XMS_ITS | Continuity of Care Document ---
Author Organization [facility] Address [address] [place] [address]- Care Team Providers Care Bible Teacher Name Role Phone Maranda WILCOX, Silvio Martinez Primary Care Physician En[place] [facility](s): 01/29/21 - 02/28/21 [facility] [address] [place] [address]- Attending Physician: Maximo Cano Admitting Physician: AdmMaximo [...] tablet, 0 Refills, Maintenance, 12/26/20 12:55:00 EDT, [facility] #[id number], Partial fill upon patient request if the prescription is for a schedule II opioid drug., 170, cm,... Start Date: 12/26/20 Status: Ordered Potassium Chloride = 40 mEq, By Mouth, 2 times a day, 0 Refills, Maintenance, 01/20/21 5:39:00 EDT, Partial fill upon patient request if the prescription is for a schedule II opioid drug. Start Date: 01/20/21 Status: Ordered Potassium Chloride (Xhr-Uqjp-Hpl M20) 20 mEq oral tablet, extended release 1 tablet = 20 mEq, By Mouth, 2 times a day, # 10 tablet, 0 Refills, Maintenance, 01/20/21 7:48:00 EDT, [facility] #[id number], Partial fill upon patient request if the [...] Refills, Soft Stop, 10/02/20 11:57:00 EST, Powder, [facility] #[id number], Partial fill upon patient... Start Date: 10/02/20 [...] 0 Refills, Maintenance, 01/20/21 7:49:00 EDT, Tablet, [facility] #[id number], Partial fill upon patient request if the [...]
--- OUTSIDE RECORDS SUMMARY | 2024-01-27 11:24 | XMS_ITS | Continuity of Care Document ---
Author Organization [facility] Address [address] [place] [address]- Care Team Providers Care Picture Framer Name Role Phone Maranda WILCOX, Silvio Martinez Primary Care Physician Encounter [facility] Date(s): 08/28/20 - 09/27/20 [facility] [address] [place] [address]- Allergies, Adverse Reactions, Alerts Substance Reaction Severity [...] capsule, 1 Refills, Maintenance, 10/21/19 11:17:00 EST, [facility] #[id number], 1 capsule By Mouth 3 times a [...] 04/09/21 14:58:00 EDT, 04/09/20 14:57:00 EDT, Tablet, [facility] #[id number], 169, cm, 04/05/20 12:55:00 EDT, Height, 85, [...] tablet, 3 Refills, Maintenance, 05/28/20 11:56:00 EDT, [facility] #[id number], 170, cm, 05/27/20 0:11:00 EDT, Height,90.4, kg, [...] 0 Refills, Maintenance, 06/18/20 16:48:00 EDT, Tablet, [facility] #[id number], 170, cm, 06/18/20 15:14:00 EDT, Height, 90.4, [...] 11 Refills, Soft Stop, 07/10/20 6:01:00 EDT, [facility] #[id number], 170, cm, 07/10/20 2:42:00 EDT, Height, 90.5, kg, 07/09/20 23:20:00 EDT, Dry Weight Start Date: 07/10/20 Status: Ordered Solu-CORTEF 100 mg preservative-free injection = 100 mg, Intramuscular, Once, prn adrenal crisis, # 5 each, 11 Refills, Soft Stop, 05/03/20 16:07:00 EDT, [facility] #[id number], 169, cm, 04/15/20 17:38:00 EDT, Height, 85, [...]
--- OUTSIDE RECORDS SUMMARY | 2024-01-27 11:24 | XMS_ITS | Continuity of Care Document ---
Author Organization [facility] Address [address] [place] [address]- Care Team Providers Care Editing Intern Name Role Phone Dash WILCOX ([place]), Paola Anderson Primary Care Physician Encounter [facility] Date(s): 05/25/23 - 07/03/23 [facility] [address] [place] [address]- Attending Physician: Manda Cheng MD Admitting Physician: Manda Cheng MD Referring Physician: Bienvenido WILCOX, Agustín Joaquin Allergies, Adverse Reactions, Alerts Substance Reaction Severity [...] Other : Medications (Vitamin D3) Cholecalciferol 400 MCC units/mL oral syringe 1 mL = 10 [...] tablet, 3 Refills, Maintenance, 08/17/22 15:43:00 EST, [facility] #[id number], 170, cm, 05/13/22 17:18:00 EDT, Height, 88.8, [...] 01/08/21 13:59:00 EDT, Route to Pharmacy Electronically, [facility] #[id number], Partial fill upon patient request if the prescription is for a sched... Start Date: 01/08/21 Status: Ordered Flonase 50 mcg/inh nasal spray 2 sprays, Nares, Both, 2 times a day, PRN Congestion, # 16 Gm, 0 Refills, Maintenance, 08/20/20 11:17:00 EST, [place], [facility] #[id number], Partial fill upon patient request if the prescriptionis for a schedule II opioid drug., 170, cm, ... Start Date: 08/20/20 Status: Ordered gabapentin 300 mg oral capsule See Instructions, 1 cap in the AM, 2 in the afternoon and 2 at bedtime, # 1 each, Refills 4, Tot. Refills 4, Maintenance, 11/11/22 15:13:00 EST, Instructions Replace Required Details, Route to Pharmacy Electronically, [facility] #[id number], Part... Start Date: 11/11/22 Status: Ordered Insulin [...] 05/14/23 20:59:00 EDT, Route to Pharmacy Electronically, [facility] #[id number], Partial fill upon patient request if the [...] 0 Refills, Maintenance, 05/13/23 10:33:00 EDT, Tablet, [facility] #[id number], Partial fill upon patient request if the prescription is for a schedule II opioid drug., 1... Start Date: 05/13/23 Stop Date: 05/16/23 Status: Ordered prazosin 2 mg oral capsule 2 capsule = 4 mg, By Mouth, Daily at bedtime, if PO intake is low or BP low below 110/70 only take one cap, # 60 capsule, 4 Refills, Maintenance, 11/11/22 15:17:00 EST, [facility] #[id number], Partial fill upon patient request if the [...] 03/10/23 15:36:00 EDT, Route to Pharmacy Electronically, [facility] #[id number], Partial fill upon patient request if the [...] Refills, Soft Stop, 05/27/23 14:16:00 EDT, Pow[place], [facility] #[id number], Partial fill upon patient... Start Date: 05/27/23 Status: Ordered spironolactone 25 mg oral tablet 25 mg, 1, tablet, By Mouth, Daily, # 30 tablet, Refills 3, Tot. Refills 3, Maintenance, 05/14/23 20:55:00 EDT, Route to Pharmacy Electronically, [facility] #[id number], Partial fill upon patientrequest if the prescription [...] information Care Team Personnel Name: Dash WILCOX ([place]) , Paola Anderson Position: [facility] Outreach Member Role: PCP Address: Address: [address] [place] [id number] [place] Name: Daina Ibrahim RN Position: [facility] ED RN W/OE and Tasks Member Role: Primary Care Nurse Name: Madeline Baird RN Position: [facility] ED RN W/OE and Tasks Member Role: Primary Care Nurse Name: Teresa Carpio Position: [facility] RN Member Role: Primary Care Nurse Name: Inge Elizabeth RN Position: [facility] SN RN Member Role: Primary Care Nurse Name: Kelley Prasad RN Position: [facility] RN Member Role: Primary Care Nurse Name: Cindy Medeiros RN Position: [facility] RN Member Role: Primary Care Nurse Name: Linnette De La O RN Position: [facility] COREMAKER HELPER Member Role: Primary Care Nurse Name: Anna FILM COMPOSERAlina Position: [facility] Associate Professional Member Role: Primary Care Nurse Address: Address: [address] [place] [address]- [place] Name: Mary Anne Kilpatrick RN Position: [facility] MR W/ Merge Member Role: Primary Care Nurse Name: Nicole Hernández RN Position: [facility] RN Member Role: Primary Care Nurse Name: Lindsay Srinivasan CNM Position: [facility] Factory Hand Member Role: Primary Care Nurse Address: Address: [address] [place] [address] [place] [address]- [place] Name: Larissa Olson [place] Position: [facility] RN Member Role: Primary Care Nurse Name: Karen Roa RN Position: [facility] ED RN W/OE and Tasks Member Role: Primary Care Nurse Name: Mary Alice Stevens RN Position: [facility] RN Member Role: Primary Care Nurse Name: Beverly Grey Position: [facility] RN Member Role: Primary Care Nurse Name: Alexy Geronimo RN Position: [facility] RN Member Role: Primary Care Nurse Name: Raúl Rudolph DO Position: [facility] ROTATING EQUIPMENT SPECIALIST MD Member Role: Lifetime ROTATING EQUIPMENT SPECIALIST Physician Address: Address: [address] [facility] Web [place] [address]- [place] Name: Evelyn Haynes RN Position: [facility] RN Member Role: Primary Care Nurse Name: Crissy Metzger RN Position: [facility] RN Member Role: Primary Care Nurse Name: Elisa Gilbert RN Position: [facility] RN Member Role: Primary Care Nurse Name: Corina Solorio RN Position: [facility] AMB Nurse Member Role: Primary Care Nurse Name: Shawnee Lane RN Position: [facility] ED RN W/OE and Tasks Member Role: Primary Care Nurse Name: Erna Douglass RN Position: [facility] SN RN Member Role: Primary Care Nurse Name: Keyana Ndiaye RN Position: [facility] Case Worker Member Role: Primary Care Nurse Name: Anabella Nicholson RN Position: [facility] AMB Nurse Member Role: Primary Care Nurse Name: Brenda Tomas RN Position: [facility] Outreach Member Role: Primary Care Nurse Name: Ramona Ybarra RN Position: [facility] RN Member Role: Primary Care Nurse Address: Address: [address] [place] [address] Name: Nancy Gallagher RN Position: [facility] Case Worker Member Role: Primary Care Nurse Name: Evelyn Allen RN Position: [facility] OB RN Member Role: Primary Care Nurse Name: Jackelin Watt RN Position: [facility] RN Member Role: Primary Care Nurse Name: Raymundo Elizabeth RN Position: [facility] SN RN Member Role: Primary Care Nurse Name: Opal Calderon RN Position: [facility] RN Member Role: Primary Care Nurse Name: Yadiel Warner RN Position: [facility] SN RN Member Role: Primary Care Nurse Care Team Related Persons Name: BARTOLOME IBRAHIM Address: home [address], [place] Name: GIANLUCA IBRAHIM Address: [address], [place] Name: ABBIE IBRAHIM Address: [address], [place] Name: SIM CERDA Name: DIANE CERDA Address: [address] [address] Name: SOLO CORRIGAN Address: [address], [place] Name: SOLO FLORES Address: [address], [place] Name: RAYMUNDO MAYFIELD Address: home [address] [place] [address]
--- OUTSIDE RECORDS SUMMARY | 2024-01-27 11:25 | XMS_ITS | Continuity of Care Document ---
Author Organization [facility] Address [address] [place] [address]- Care Team Providers Care Jeep Driver Name Role Phone Maranda WILCOX, Silvio Martinez Primary Care Physician Encounter [facility] Date(s): 05/10/20 - 06/09/20 [facility] [address] [place] [address]- [facility] Allergies, Adverse Reactions, Alerts Substance Reaction [...] mL, Refills 11, Tot. Refills 11, Maintenance, [facility]: [id number], 05/08/20 16:20:00 EDT, Supply, 169, cm, 04/15/20 [...] capsule, 1 Refills, Maintenance, 10/21/19 11:17:00 EST, [facility] #[id number], 1 capsule By Mouth 3 times a [...] 04/09/21 14:58:00 EDT, 04/09/20 14:57:00 EDT, Tablet, [facility] #[id number], 169, cm, 04/05/20 12:55:00 EDT, Height, 85, [...] tablet, 3 Refills, Maintenance, 05/28/20 11:56:00 EDT, [facility] #[id number], 170, cm, 05/27/20 0:11:00 EDT, Height,90.4, kg, [...] Acute 04/30/21 16:58:00 EDT, 04/30/20 16:57:00 EDT, [facility] #[id number], 169, cm, 04/15/20 17:38:00 EDT, Height, 85, kg, 03/15/20 2:33:00 EDT, Dry Weight Start Date: 04/30/20 Stop Date: 04/30/21 Status: Ordered methylprednisolone 2 gm injectable powder for injection See Instructions, inject 4 grams IM for adrenal crisis, # 48 Gm, 11 Refills, Acute 06/08/21 12:08:00 EDT, 05/03/21 10:04:00 EDT, [facility]/pharmacy #[id number], 169, cm, 04/15/20 17:38:00 EDT, Height, 85, kg, 03/15/20 2:33:00 EDT, Dry Weight Start Date: 05/03/21 Stop Date: 06/08/21 Status: Ordered methylprednisolone 2 gm injectable powder for injection See Instructions, inject 4 grams IM for adrenal crisis, # 48 Gm, 3 Refills, Acute 05/03/21 10:04:00EDT, 05/03/20 10:03:00 EDT, [facility] #[id number], 169, cm, 04/15/20 17:38:00 EDT, Height, 85, kg, 03/15/20 2:33:00 EDT, Dry Weight Start Date: 05/03/20 Stop Date: 05/03/21 Status: Ordered methylprednisolone 2 gm injectable powder for injection See Instructions, inject 4 grams IM for adrenal crisis, # 48 Gm, 3 Refills, Acute 05/03/21 11:58:00EDT, 05/03/21 10:04:00 EDT, [facility], 169, cm, 04/15/20 17:38:00 [...] 11 Refills, Soft Stop, 05/03/20 16:07:00 EDT, [facility] #[id number], 169, cm, 04/15/20 17:38:00 EDT, Height, 85, [...] Refills, Maintenance, 12/05/19 20:49:00 EDT, DIS Tablet, [facility] #[id number], 170, cm, 12/05/19 19:19:00 EDT, Height, 88.7, [...]
--- OUTSIDE RECORDS SUMMARY | 2024-01-27 11:25 | XMS_ITS | Continuity of Care Document ---
Author Organization [facility] Address [address] [place] [address]- Care Team Providers Care Web Offset Press Feeder Name Role Phone Silvio Low MD Primary Care Physician Encounter [facility] Date(s): 11/11/20 - 01/25/[address] [address]- Encounter Diagnosis Pain in right hip(Final) - Discharge Disposition: A-D/C Home Attending Physician: Sourav Urrutia MD Admitting Physician: Sourav Urrutia MD Referring Physician: Sourav Urrutia MD Allergies, Adverse Reactions, Alerts Substance Reaction Severity Status propranolol Rash Active Cefzil Hives Active Compazine severe anxiety Hives Active Xarelto rash Active Zoloft tachycardia n/v Active Nardil Palpitations - rapid N&V - Nausea and vomiting C/O - a headache Active Inderal n/v,tachcardia Active Haldol Active Reglan severe anxiety~panic Active Lexapro n/v Active Immunizations Given and Recorded Vaccine Date [...] tablet, 0 Refills, Maintenance, 12/26/20 12:55:00 EDT, [facility] #[id number], Partial fill upon patient request if the prescription is for a schedule II opioid drug., 170, cm,... Start Date: 12/26/20 Status: Ordered Potassium Chloride = 40 mEq, By Mouth, 2 times a day, 0 Refills, Maintenance, 01/20/21 5:39:00 EDT, Partial fill upon patient request if the prescription is for a schedule II opioid drug. Start Date: 01/20/21 Status: Ordered Potassium Chloride (Lsq-Dhgm-Xgt M20) 20 mEq oral tablet, extended release 1 tablet = 20 mEq, By Mouth, 2 times a day, # 10 tablet, 0 Refills, Maintenance, 01/20/21 7:48:00 EDT, [facility] #[id number], Partial fill upon patient request if the [...] Refills, Soft Stop, 10/02/20 11:57:00 EST, Powder, [facility] #[id number], Partial fill upon patient... Start Date: 10/02/20 [...] 0 Refills, Maintenance, 01/20/21 7:49:00 EDT, Tablet, [facility] #[id number], Partial fill upon patient request if the [...]
--- OUTSIDE RECORDS SUMMARY | 2024-01-27 11:25 | XMS_ITS | Continuity of Care Document ---
Author Organization [facility] Address [address] [place] [address]- Care Team Providers Care Pneumatic Tester Name Role Phone Silvio Low MD Primary Care Physician Encounter [facility] Date(s): 12/19/20 - 12/26/[address] [address]- Discharge Disposition: A-D/C Home Attending Physician: Ben Mckinney MD Admitting Physician: Maggie Guerin MD Referring Physician: Maggie Guerin MD Allergies, Adverse Reactions, Alerts Substance Reaction [...] Dry Weight Start Date: 05/08/20 Status: Ordered Creon 36,000 units oral delayed release capsule 1 capsule, By Mouth, 3 times a day, with each meal and snack, # 270 capsule, 1 Refills, Maintenance, 10/21/19 11:17:00 EST, [facility] #[id number], 1 capsule By Mouth 3 times a day,Instr:with each meal and snack, 170, cm, 10/20/19 13:48:00 EST, H... Start Date: 10/21/19 Status: Ordered diphenhydrAMINE 25 mg oral tablet = 50 mg, By Mouth, 4 times a day, PRN as needed for itching, for 3 days, # 10 tablet, 0 Refills, Acute 12/29/20 12:55:00 EDT, 12/26/20 12:55:00 EDT, Tablet, [facility] #[id number], Partial fill upon patient request if the prescription is for a sc... Start Date: 12/26/20 Stop Date: 12/29/20 Status: Ordered Famotidine = 20 mg, By Mouth, 2 times a day, 0 Refills, Maintenance, 03/07/20 20:24:00 EDT Start Date: 03/07/20 Status: Ordered fludrocortisone 0.1 mg oral tablet 1 tablet = 0.1 mg, By Mouth, Daily, # 90 tablet, 3 Refills, Acute 04/09/21 14:58:00 EDT, 04/09/20 14:57:00 EDT, Tablet, [facility] #[id number], 169, cm, 04/05/20 12:55:00 EDT, Height, 85, [...] EST, Film Start Date: 08/24/19 Status: Ordered metoprolol 25 mg oral tablet 25 mg, Tablet, By Mouth, 12/26/20 9:00:00 EDT Start Date: 12/26/20 Stop Date: 12/26/20 Status: Completed Metoprolol Tartrate 25 mg oral tablet 1 tablet = 25 mg, By Mouth, 2 times a day, Call if any significant lightheadedness, # 60 tablet, 3 Refills, Maintenance, 10/16/20 16:21:00 EST, Tablet, [facility] #[id number], Partial fill upon patient request if the prescription is for a schedul... Start Date: 10/16/20 Stop Date: 02/13/21 Status: Ordered ondansetron 8 mg oral tablet, disintegrating 1 tablet = 8 mg, By Mouth, 3 times a day, PRN Nausea & Vomiting, # 30 tablet, 0 Refills, Maintenance, 12/26/20 12:55:00 EDT, [facility] #[id number], Partial fill upon patient request if the prescription is for a schedule II opioid drug., 170, cm,... Start Date: 12/26/20 Status: Ordered oxyCODONE 5 mg oral tablet 5 mg, Tablet, By Mouth, Every 6 hours for 3 doses/times, PRN for Pain , Moderate, Routine, 12/26/2119:59:00 EDT, Stop date Limited # of times Start Date: 12/25/20 Stop Date: 12/26/20 Status: Completed oxyCODONE 5 mg oral tablet 5 mg, 1, tablet, By Mouth, Every 6 hours, PRN, for 2 days, # 7 tablet, Refills 0, Tot. Refills 0, Acute 12/28/20 12:56:00 EDT, as needed for pain, 12/26/20 12:56:00 EDT, Route to Pharmacy Electronically, [facility] #[id number], Partial fill upon... Start Date: 12/26/20 Stop Date: 12/28/20 Status: Ordered potassium chloride 20 mEq oral tablet, extended release 1 tablet = 20 mEq, By Mouth, Daily, # 30 tablet, 7 Refills, Maintenance, 12/26/20 12:54:00 EDT, ER Tablet, [facility] #[id number], 170, cm, 12/26/20 9:55:00 EDT, Height, 84.65, [...] Refills, Soft Stop, 10/02/20 11:57:00 EST, Powder, [facility] #[id number], Partial fill upon patient... Start Date: 10/02/20 Status: Ordered traZODone 150 mg oral tablet [...] Range]: 1 2 3 Height 170 cm (12/26/20 9:55 AM) 170 cm (12/26/20 7:29 AM) 170 cm (12/25/20 11:20 PM) Weight 82.95 kg (12/23/20 5:50 AM) 84.65 kg (12/19/20 1:15 AM) Oxygen Saturation [94-100 %] 95 % (12/26/20 9:55 AM) 94 % (12/26/20 7:29 AM) 96 % (12/25/20 11:20 PM) Pulse Rate [55-90 bpm] 62 bpm (12/26/20 9:55 AM) 60 bpm (12/26/20 8:17 AM) 60 bpm (12/26/20 7:29 AM) Body Mass Index [18.5-24.99] 28.7 *H* (12/23/20 5:50 AM) 29.29 *H* (12/19/20 1:15 AM) Blood Pressure [90-138/55-84 mm Hg] 127/86mm Hg (12/26/20 9:55 AM) 144/79mm Hg *H* (12/26/20 8:17 AM) 144/79mm Hg *H* (12/26/20 7:29 AM) Respiratory Rate [16-30 br/min] 18 br/min (12/26/20 12:50 PM) 14 br/min *L* (12/26/20 9:55 AM) 20 br/min (12/26/20 7:29 AM) Temperature [96.8-100.4 DegF] 98.0 DegF (12/26/20 7:29 AM) 98.3 DegF (12/25/20 11:20 PM) 97.7 DegF (12/25/20 7:20 PM) Mode of Delivery (Oxygen) Room air (12/26/20 9:55 AM) Room air (12/26/20 7:29 AM) Room air (12/25/20 11:20 PM) Blood pressure sites Arm, right (12/26/20 9:55 AM) Arm, left (12/26/20 7:29 AM) Arm, right (12/25/20 11:20 PM) Temperature Route Oral (12/26/20 7:29 AM) Oral (12/25/20 11:20 PM) Oral (12/25/20 7:20 PM) Dry Weight 84.65 kg (12/19/20 1:15 AM) Social History Social History Type Response Smoking Status 10 or more cigarette s (1/2 pack or more)/day in last 30 days entered on: 08/06/19 Sex
--- OUTSIDE RECORDS SUMMARY | 2024-01-27 11:25 | XMS_ITS | Continuity of Care Document ---
Author Organization [facility] Address [address] [place] [address]- Care Team Providers Care Vocal Artist Name Role Phone Maranda WILCOX, Silvio Martinez Primary Care Physician Encounter [facility] Date(s): 05/09/20 - 09/06/20 [facility] [address] [place] [address]- Attending Physician: Silvio Low MD Admitting Physician: Silvio Low MD Allergies, Adverse Reactions, Alerts Substance Reaction Severity Status propranolol Rash Active Cefzil Hives Active Haldol Active Xarelto rash Active Lexapro n/v Active Zoloft tachycardia n/v Active Nardil Palpitations - rapid N&V - Nausea and vomiting C/O - a headache Active Inderal n/v,tachcardia Active Compazine severe anxiety Hives Active Reglan [...] mL, Refills 11, Tot. Refills 11, Maintenance, [facility]: [id number], 05/08/20 16:20:00 EDT, Supply, 169, cm, 04/15/20 [...] 270 capsule, 1 Refills, Maintenance, 10/21/19 11:17:00 [facility] #[id number], 1 capsule By Mouth 3 times a [...] 04/09/21 14:58:00 EDT, 04/09/20 14:57:00 EDT, Tablet, [facility] #[id number], 169, cm, 04/05/20 12:55:00 EDT, Height, 85, [...] tablet, 3 Refills, Maintenance, 05/28/20 11:56:00 EDT, [facility] #[id number], 170, cm, 05/27/20 0:11:00 EDT, Height,90.4, kg, [...] Acute 04/30/21 16:58:00 EDT, 04/30/20 16:57:00 EDT, [facility] #[id number], 169, cm, 04/15/20 17:38:00 EDT, Height, 85, kg, 03/15/20 2:33:00 EDT, Dry Weight Start Date: 04/30/20 Stop Date: 04/30/21 Status: Ordered methylprednisolone 2 gm injectable powder for injection See Instructions, inject 4 grams IM for adrenal crisis, # 48 Gm, 11 Refills, Acute 06/08/21 12:08:00 EDT, 05/03/21 10:04:00 EDT, [facility]/pharmacy #[id number], 169, cm, 04/15/20 17:38:00 EDT, Height, 85, kg, 03/15/20 2:33:00 EDT, Dry Weight Start Date: 05/03/21 Stop Date: 06/08/21 Status: Ordered methylprednisolone 2 gm injectable powder for injection See Instructions, inject 4 grams IM for adrenal crisis, # 48 Gm, 3 Refills, Acute 05/03/21 10:04:00EDT, 05/03/20 10:03:00 EDT, [facility] #[id number], 169, cm, 04/15/20 17:38:00 EDT, Height, 85, kg, 03/15/20 2:33:00 EDT, Dry Weight Start Date: 05/03/20 Stop Date: 05/03/21 Status: Ordered methylprednisolone 2 gm injectable powder for injection See Instructions, inject 4 grams IM for adrenal crisis, # 48 Gm, 3 Refills, Acute 05/03/21 11:58:00EDT, 05/03/21 10:04:00 EDT, [facility], 169, cm, 04/15/20 17:38:00 EDT, Height, [...] 0 Refills, Maintenance, 06/18/20 16:48:00 EDT, Tablet, [facility] #[id number], 170, cm, 06/18/20 15:14:00 EDT, Height, 90.4, [...] 11 Refills, Soft Stop, 07/10/20 6:01:00 EDT, [facility] #[id number], 170, cm, 07/10/20 2:42:00 EDT, Height, 90.5, kg, 07/09/20 23:20:00 EDT, Dry Weight Start Date: 07/10/20 Status: Ordered Solu-CORTEF 100 mg preservative-free injection = 100 mg, Intramuscular, Once, prn adrenal crisis, # 5 each, 11 Refills, Soft Stop, 05/03/20 16:07:00 EDT, [facility] #[id number], 169, cm, 04/15/20 17:38:00 EDT, Height, 85, [...] Refills, Maintenance, 12/05/19 20:49:00 EDT, DIS Tablet, [facility] #[id number], 170, cm, 12/05/19 19:19:00 EDT, Height, 88.7, [...]
--- OUTSIDE RECORDS SUMMARY | 2024-01-27 11:25 | XMS_ITS | Continuity of Care Document ---
Author Organization [facility] Address [address] [place] [id number]- Care Team Providers Care Weather Anchor Name Role Phone Maranda WILCOX, Silvio Martinez Primary Care Physician [id number] Date(s): 03/15/20 - 03/15/[address] [address]- [facility] Discharge Disposition: A-D/C Home Attending Physician: Smith Hensley DO Admitting Physician: Smith Hensley DO Referring Physician: Not on Staff, Referring [...] EDT, Powder Start Date: 03/08/20 Status: Ordered atorvastatin 20 mg oral tablet 2 tablet = 40 mg, By Mouth, Daily, 0 Refills, Maintenance, 03/08/20 16:52:00 EDT, Tablet Start Date: 03/08/20 Status: Ordered Benadryl Capsule 50 mg, By [...] capsule, 1 Refills, Maintenance, 10/21/19 11:17:00 EST, [facility] #[id number], 1 capsule By Mouth 3 times a [...] Refills, Maintenance Start Date: 06/18/11 Status: Ordered HydroCORTisone = 15 mg, By Mouth, Daily, 0 Refills, Maintenance, 03/08/20 20:01:00 EDT Start Date: 03/08/20 Status: Ordered HydroCORTisone = 5 mg, By Mouth, Daily before dinner, 0 Refills, Maintenance, 03/08/20 20:02:00 EDT Start Date: 03/08/20 Status: Ordered ibuprofen 800 mg oral tablet [...] 15:52:36 EDT Start Date: 06/03/19 Status: Ordered Nicotine = 21 mg, Topically, Daily, 0 Refills, Maintenance, 03/08/20 16:52:00 EDT, Patch Start Date: 03/08/20 Status: Ordered Oxycodone = 10 mg, By Mouth, Every 6 hours, PRN Pain , Moderate, 0 Refills, Maintenance, 01/04/17 10:10:47 EDT Start Date: 01/04/17 Status: Ordered Polymyxin B Ophthalmic See Instructions, 0 Refills, Maintenance, 03/08/20 20:05:00 EDT Start Date: 03/08/20 Status: Ordered Protonix 20 mg oral delayed release tablet 2 tablet = 40 mg, By Mouth, Daily, 0 Refills, Maintenance, 01/16/20 22:31:00 EDT Start Date: 01/16/20 Status: Ordered Senna = 8.5 mg, By Mouth, 2 times a day, 0 Refills, Maintenance, 11/06/16 11:22:55 Start Date: 11/06/16 Status: Ordered traZODone 100 mg oral tablet 100 mg, 1, tablet, By Mouth, Daily at bedtime, # 30 tablet, Refills 0, Tot. Refills 0, Maintenance,03/12/20 11:30:00 EDT, Route to Pharmacy Electronically, [facility], 169, cm, 03/12/20 8:11:00 EDT, Height, 85.2, kg, 03/09/20 1:26:00 ED... Start Date: 03/12/20 Status: Ordered Vitamin D3 oral tablet 5,000 iu, By Mouth, Every week, # 30 tablet, 0 Refills, Maintenance, 09/24/17 10:55:41, Tablet Start Date: 09/24/17 Status: Ordered Zofran ODT 4 mg oral tablet, disintegrating 1 tablet = 4 mg, By Mouth, Every 8 hours, PRN Nausea & Vomiting, # 5 tablet, 0 Refills, Maintenance, 12/05/19 20:49:00 EDT, DIS Tablet, [facility] #[id number], 170, cm, 12/05/19 19:19:00 EDT, Height, 88.7, kg, 12/05/19 19:19:00 EDT, Dry Weight Start Date: 12/05/19 Status: Ordered Problem List Condition Effective Dates Status Health Status Inform ant Asthma(Confirmed) Active Borderline personality disorder(Confirmed) Active Pacemaker, Biotronik, insert ed 10/29/14(Confirmed) 1 Active Chronic pain(Confirmed) Active Colitis(Confirmed) Active Depression with anxiety(Confirmed) Active Peripheral neuropathy(Confirmed) Active Essential hypertension(Confirmed) Active Gastroesophageal reflux disease(Confirmed) Active Headache(Confirmed) Active Hemorrhoid(Confirmed) Active S/p REFUGIO-BSO(Confirmed) Active Hyperlipidemia(Confirmed) Active Adrenal insufficiency due to steroid withdrawal(Confirmed) Active Low back pain(Confirmed) Active Mast cell disorder(Confirmed) Active Nausea and vomiting(Confirmed) Active Ocular migraine(Confirmed) Active Opioid dependence(Confirmed) 2 [...] Exam Date Time Procedure Performing Provider Status 03/15/20 2:53 AM Chest Portable Mani Nguyen (Verified) Notes: (Chest Portable) Reason For Exam: Shortness of Breath RESULT: Chest Portable Chest Portable INDICATION: Pt recently d c'd from [facility]. Pt reports intermittent mid sternal cp all day and has not been relaxing like she was recommended to after being admitted to [facility]. Pt reports nausea and L arm pain while relaxing and watching tv at home tonight. COMPARISON: Multiple priors, most recent 03/07/2020 FINDINGS: There is underpenetration of the chest radiograph. The extreme lung apices are excluded from [id number]. LINES AND TUBES: Dual-lead left subclavian pacer wires are intact. LUNGS AND PLEURA: Mild bibasilar atelectasis. No focal consolidation. Normal pulmonary vascularity. No pleural effusion. No pneumothorax. HEART, MEDIASTINUM AND DAGOBERTO: Unchanged cardiomediastinal silhouette. BONES AND SOFT TISSUES: No acute abnormality. IMPRESSION: No radiographic evidence of acute cardiopulmonary abnormality. I have personally reviewed the images and I agree with this report. WSN: [id number] Ordering Physician: Smith Hensley Dictated By: Billy James MD Dictated Date/Time: 03/15/20 7:36 am Reviewed By: Aleksandr Murillo MD Signed By: Aleksandr Murillo MD Signed Date/Time: 03/15/20 7:41 am Transcribed By: DIANE Transcribed Date/Time: 03/15/20 6:44 am Vital Signs Most recent to oldest [Reference Range]: 1 2 3 Height 169 cm (03/15/20 2:28 AM) Weight 85 kg (03/15/20 2:28 AM) Oxygen Saturation [94-100 %] 97 % (03/15/20 8:00 AM) 100 % (03/15/20 7:37 AM) 99 % (03/15/20 7:00 AM) Pulse Rate [55-90 bpm] 60 bpm (03/15/20 8:00 AM) 61 bpm (03/15/20 7:37 AM) 60 bpm (03/15/20 7:00 AM) Blood Pressure [90-138/55-84 mm Hg] 109/70mm Hg (03/15/20 8:00 AM) 112/76mm Hg (03/15/20 7:37 AM) 110/68mm Hg (03/15/20 7:00 AM) Respiratory Rate [16-30 br/min] 19 br/min (03/15/20 8:00 AM) 16 br/min (03/15/20 7:37 AM) 16 br/min (03/15/20 7:00 AM) Temperature [96.8-100.4 DegF] 98.2 DegF (03/15/20 2:28 AM) Mode of Delivery (Oxygen) Room air (03/15/20 8:00 AM) Room air (03/15/20 7:37 AM) Room air (03/15/20 7:00 AM) Blood pressure sites Arm, right (03/15/20 7:37 AM) Arm, left (03/15/20 5:44 AM) Arm, left (03/15/20 3:54 AM) Temperature Route Oral (03/15/20 2:28 AM) Dry Weight 85 kg (03/15/20 2:28 AM) Weight Obtained Via Patient/family state d (03/15/20 2:28 AM) Social History Social History Type Response Smoking Status 10 or more cigarette s (1/2 pack or more)/day in last 30 days entered on: 08/06/19 Sex
--- OUTSIDE RECORDS SUMMARY | 2024-01-27 11:25 | XMS_ITS | Continuity of Care Document ---
Author Organization [facility] Address [address] [place] [address]- Care Team Providers Care Subway Train Driver Name Role Phone Dash WILCOX ([place]), Paola Anderson Primary Care Physician Encounter [facility] Date(s): 05/27/23 - 06/26/23 [facility] [address] [place] [address]- Allergies, Adverse Reactions, Alerts Substance Reaction Severity [...] Other : Medications (Vitamin D3) Cholecalciferol 400 RESIDENTIAL units/mL oral syringe 1 mL = 10 [...] tablet, 3 Refills, Maintenance, 08/17/22 15:43:00 EST, [facility] #[id number], 170, cm, 05/13/22 17:18:00 EDT, Height, 88.8, [...] 01/08/21 13:59:00 EDT, Route to Pharmacy Electronically, [facility] #[id number], Partial fill upon patient request if the prescription is for a sched... Start Date: 01/08/21 Status: Ordered Flonase 50 mcg/inh nasal spray 2 sprays, Nares, Both, 2 times a day, PRN Congestion, # 16 Gm, 0 Refills, Maintenance, 08/20/20 11:17:00 EST, [place], [facility] #[id number], Partial fill upon patient request if the prescriptionis for a schedule II opioid drug., 170, cm, ... Start Date: 08/20/20 Status: Ordered gabapentin 300 mg oral capsule See Instructions, 1 cap in the AM, 2 in the afternoon and 2 at bedtime, # 1 each, Refills 4, Tot. Refills 4, Maintenance, 11/11/22 15:13:00 EST, Instructions Replace Required Details, Route to Pharmacy Electronically, [facility] #[id number], Part... Start Date: 11/11/22 Status: Ordered Insulin [...] 05/14/23 20:59:00 EDT, Route to Pharmacy Electronically, [facility] #[id number], Partial fill upon patient request if the [...] 0 Refills, Maintenance, 05/13/23 10:33:00 EDT, Tablet, [facility] #[id number], Partial fill upon patient request if the prescription is for a schedule II opioid drug., 1... Start Date: 05/13/23 Stop Date: 05/16/23 Status: Ordered prazosin 2 mg oral capsule 2 capsule = 4 mg, By Mouth, Daily at bedtime, if PO intake is low or BP low below 110/70 only take one cap, # 60 capsule, 4 Refills, Maintenance, 11/11/22 15:17:00 EST, [facility] #[id number], Partial fill upon patient request if the [...] 03/10/23 15:36:00 EDT, Route to Pharmacy Electronically, [facility] #[id number], Partial fill upon patient request if the [...] Refills, Soft Stop, 05/27/23 14:16:00 EDT, Powder, [facility] #[id number], Partial fill upon patient... Start Date: 05/27/23 Status: Ordered spironolactone 25 mg oral tablet 25 mg, 1, tablet, By Mouth, Daily, # 30 tablet, Refills 3, Tot. Refills 3, Maintenance, 05/14/23 20:55:00 EDT, Route to Pharmacy Electronically, [facility] #[id number], Partial fill upon patientrequest if the prescription [...] information Care Team Personnel Name: Dash WILCOX ([place]) , Paola Anderson Position: [facility] Outreach Member Role: PCP Address: Address: [address] [place] [id number] [place] Name: Daina Ibrahim RN Position: [facility] ED RN W/OE and Tasks Member Role: Primary Care Nurse Name: Madeline Baird RN Position: [facility] ED RN W/OE and Tasks Member Role: Primary Care Nurse Name: Teresa Carpio Position: S RN Member Role: Primary Care Nurse Name: Inge Elizabeth RN Position: [facility] SN RN Member Role: Primary Care Nurse Name: Kelley Prasad RN Position: [facility] RN Member Role: Primary Care Nurse Name: Cindy Medeiros RN Position: [facility] RN Member Role: Primary Care Nurse Name: Linnette De La O RN Position: [facility] RADAR SYSTEMS ENGINEER Member Role: Primary Care Nurse Name: Alina Castillo NP Position: [facility] Associate Professional Member Role: Primary Care Nurse Address: Address: [address] [facility] [place] [address]- [place] Name: Mary Anne Kilpatrick RN Position: [facility] MR W/ Merge Member Role: Primary Care Nurse Name: Nicole Hernández RN Position: [facility] RN Member Role: Primary Care Nurse Name: Lindsay Srinivasan CNM Position: [facility] Chief Commercial Officer Member Role: Primary Care Nurse Address: Address: [address] [place] [address]- [place] Name: Larissa Olson [place] Position: [facility] RN Member Role: Primary Care Nurse Name: Karen Roa RN Position: [facility] ED RN W/OE and Tasks Member Role: Primary Care Nurse Name: Mary Alice Stevens RN Position: [facility] RN Member Role: Primary Care Nurse Name: Beverly Grey Position: [facility] RN Member Role: Primary Care Nurse Name: Alexy Geronimo RN Position: [facility] RN Member Role: Primary Care Nurse Name: Raúl Rudolph DO Position: [facility] TOMATO PASTE MAKER MD Member Role: Lifetime TOMATO PASTE MAKER Physician Address: Address: [address] [facility] [place] [address]- [place] Name: Evelyn Haynes RN Position: [facility] RN Member Role: Primary Care Nurse Name: Crissy Metzger RN Position: [facility] RN Member Role: Primary Care Nurse Name: Elisa Gilbert RN Position: [facility] RN Member Role: Primary Care Nurse Name: Corina Solorio RN Position: [facility] AMB Nurse Member Role: Primary Care Nurse Name: Shawnee Lane RN Position: [facility] ED RN W/OE and Tasks Member Role: Primary Care Nurse Name: Erna Douglass RN Position: [facility] SN RN Member Role: Primary Care Nurse Name: Keyana Ndiaye RN Position: [facility] Residential Appliance Repair Technician Member Role: Primary Care Nurse Name: Anabella Nicholson RN Position: [facility] AMB Nurse Member Role: Primary Care Nurse Name: Brenda Tomas RN Position: [facility] Outreach Member Role: Primary Care Nurse Name: Ramona Ybarra RN Position: [facility] RN Member Role: Primary Care Nurse Address: Address: [address] [place] [id number] Name: Nancy Gallagher RN Position: [facility] Residential Appliance Repair Technician Member Role: Primary Care Nurse Name: Evelyn Allen RN Position: [facility] OB RN Member Role: Primary Care Nurse Name: Jackelin Watt RN Position: [facility] RN Member Role: Primary Care Nurse Name: Raymundo Elizabeth RN Position: [facility] SN RN Member Role: Primary Care Nurse Name: Opal Calderon RN Position: [facility] RN Member Role: Primary Care Nurse Name: Timmy RNYadiel Position: [facility] SN RN Member Role: Primary Care Nurse Care Team Related Persons Name: BARTOLOME IBRAHIM Address: [address] [place] [address] Name: GIANLUCA IBRAHIM Address: [address] [place] [address] Name: ABBIE IBRAHIM Address: [address] [place] [address] Name: SIM CERDA Name: DIANE CERDA Address: home [address] [place] [address] Name: SOLO CORRIGAN Address: [address] [place] [address] Name: SOLO FLORES Address: [address] [place] [address] Name: RAYMUNDO MAYFIELD Address: [address] [place] [address]
--- OUTSIDE RECORDS SUMMARY | 2024-01-27 11:25 | XMS_ITS | Continuity of Care Document ---
Author Organization [facility] Address [address] [place] [address]- Care Team Providers Care Fitness Sales Associate Name Role Phone Maranda WILCOX, Silvio Martinez Primary Care Physician Encounter [facility] Date(s): 11/19/20 - 12/19/20 [facility] [address] [place] [address]- Allergies, Adverse Reactions, Alerts Substance Reaction Severity [...] capsule, 1 Refills, Maintenance, 10/21/19 11:17:00 EST, [facility] #[id number], 1 capsule By Mouth 3 times a day,Instr:with each meal and snack, 170, cm, 10/20/19 13:48:00 EST, H... Start Date: 10/21/19 Status: Ordered cromolyn 20 mg/mL oral solution 10 mL = 200 mg, By Mouth, 3 times a day, 30 minutes before meals and at bedtime, # 900 mL, 1 Refills, Maintenance, 10/11/18 15:32:52 EST, Solution Start Date: 10/11/18 Status: Ordered DiphenhydrAMINE = 50 mg, By Mouth, 4 times a day, 0 Refills, Maintenance, 12/19/20 1:52:00 EDT, Partial fill upon patient request if the prescription is for a schedule II opioid drug. Start Date: 12/19/20 Status: Ordered Famotidine = 20 mg, By Mouth, 2 times a day, 0 Refills, Maintenance, 03/07/20 20:24:00 EDT Start Date: 03/07/20 Status: Ordered fludrocortisone 0.1 mg oral tablet 1 tablet = 0.1 mg, By Mouth, Daily, # 90 tablet, 3 Refills, Acute 04/09/21 14:58:00 EDT, 04/09/20 14:57:00 EDT, Tablet, [facility] #[id number], 169, cm, 04/05/20 12:55:00 EDT, Height, 85, [...] 3 Refills, Maintenance, 10/16/20 16:21:00 EST, Tablet, [facility] #[id number], Partial fill upon patient request if the prescription is for a schedul... Start Date: 10/16/20 Stop Date: 02/13/21 Status: Ordered ondansetron 4 mg oral tablet 1 tablet = 4 mg, By Mouth, Every 8 hours, PRN Nausea & Vomiting, # 20 tablet, 0 Refills, Maintenance, 06/18/20 16:48:00 EDT, Tablet, [facility] #[id number], 170, cm, 06/18/20 15:14:00 EDT, Height, 90.4, kg, 06/18/20 15:14:00 EDT, Dry Weight Start Date: 06/18/20 Stop Date: 06/25/20 Status: Ordered ondansetron 8 mg oral tablet, disintegrating 1 tablet = 8 mg, By Mouth, 3 times a day, # 10 tablet, 0 Refills, Maintenance, 10/30/20 17:44:00 EST, [facility] #[id number], Partial fill upon patient request if the [...] Refills, Soft Stop, 10/02/20 11:57:00 EST, Powder, [facility] #[id number], Partial fill upon patient... Start Date: 10/02/20 Status: Ordered traZODone 150 mg oral tablet 1 tablet = 150 mg, By Mouth, Daily at bedtime, # 30 tablet, 0 Refills, Maintenance, 12/19/20 1:55:00 EDT, Tablet, Partial fill upon patient request if the prescription is for a schedule II opioid drug. Start Date: 12/19/20 Status: Ordered Xylose 25 g powder Xylose [...]
--- OUTSIDE RECORDS SUMMARY | 2024-01-27 11:25 | XMS_ITS | Continuity of Care Document ---
[facility] Address [address] [place] [address]- Care Team Providers Care Senior Sourcing Manager Name Role Phone Dash WILCOX ([place]), Paola Anderson Primary Care Physician Encounter [facility] Date(s): 07/05/23 - 08/04/[address] [address]- Attending Physician: Amos Appiah MD Admitting Physician: Amos Appiah MD Referring Physician: Amos Appiah MD Allergies, Adverse Reactions, Alerts Substance Reaction [...] Other : Medications (Vitamin D3) Cholecalciferol 400 PENITENTIARY units/mL oral syringe 1 mL = 10 [...] tablet, 3 Refills, Maintenance, 08/17/22 15:43:00 EST, [facility] #[id number], 170, cm, 05/13/22 17:18:00 EDT, Height, 88.8, kg, 05/13/22 17:18:00 EDT, Dry Weight Start Date: 08/17/22 Status: Ordered Ativan 1 mg oral tablet 1 tablet = 1 mg, By Mouth, 3 times a day, PRN for anxiety, # 11 tablet, 0 Refills, Maintenance, 07/15/23 11:42:00 EDT, Tablet, [facility] #[id number], Partial fill upon patient request if the [...] 01/08/21 13:59:00 EDT, Route to Pharmacy Electronically, [facility] #[id number], Partial fill upon patient request if the prescription is for a sched... Start Date: 01/08/21 Status: Ordered Flonase 50 mcg/inh nasal spray 2 sprays, Nares, Both, 2 times a day, PRN Congestion, # 16 Gm, 0 Refills, Maintenance, 08/20/20 11:17:00 EST, [place], [facility] #[id number], Partial fill upon patient request if the prescriptionis for a schedule II opioid drug., 170, cm, ... Start Date: 08/20/20 Status: Ordered gabapentin 300 mg oral capsule See Instructions, 1 cap in the AM, 2 in the afternoon and 2 at bedtime, # 1 each, Refills 4, Tot. Refills 4, Maintenance, 11/11/22 15:13:00 EST, Instructions Replace Required Details, Route to Pharmacy Electronically, [facility] #[id number], Part... Start Date: 11/11/22 Status: Ordered Insulin [...] 05/14/23 20:59:00 EDT, Route to Pharmacy Electronically, [facility] #[id number], Partial fill upon patient request if the [...] 0 Refills, Maintenance, 05/13/23 10:33:00 EDT, Tablet, [facility] #[id number], Partial fill upon patient request if the prescription is for a schedule II opioid drug., 1... Start Date: 05/13/23 Stop Date: 05/16/23 Status: Ordered prazosin 2 mg oral capsule 2 capsule = 4 mg, By Mouth, Daily at bedtime, if PO intake is low or BP low below 110/70 only take one cap, # 60 capsule, 4 Refills, Maintenance, 11/11/22 15:17:00 EST, [facility] #[id number], Partial fill upon patient request if the [...] 03/10/23 15:36:00 EDT, Route to Pharmacy Electronically, [facility] #[id number], Partial fill upon patient request if the [...] 0 Refills, Maintenance, 11/06/16 11:22:55 Start Date: 2/17/17 Status: Ordered Solu-CORTEF Act-O-Vial 100 mg injection See Instructions, use daily SQ for adrenal insufficiency. 14 mg qam and 7 mg qpm please provide extra 2 mg vial for stress dosing., # 8 each, 11 Refills, Soft Stop, 05/27/23 14:16:00 EDT, Powder, [facility] #[id number], Partial fill upon patient... Start Date: 05/27/23 Status: Ordered spironolactone 25 mg oral tablet 25 mg, 1, tablet, By Mouth, Daily, # 30 tablet, Refills 3, Tot. Refills 3, Maintenance, 05/14/23 20:55:00 EDT, Route to Pharmacy Electronically, [facility] #[id number], Partial fill upon patientrequest if the prescription [...] information Care Team Personnel Name: Dash WILCOX ([place]) , Paola Anderson Position: [facility] Outreach Member Role: PCP Address: Address: [address] [place] [address] [place] Name: Daina Ibrahim RN Position: [facility] ED RN W/OE and Tasks Member Role: Primary Care Nurse Name: Madeline Baird RN Position: [facility] ED RN W/OE and Tasks Member Role: Primary Care Nurse Name: Teresa Carpio Position: [facility] RN Member Role: Primary Care Nurse Name: Inge Elizabeth RN Position: [facility] SN RN Member Role: Primary Care Nurse Name: Kelley Prasad RN Position: [facility] RN Member Role: Primary Care Nurse Name: Cindy Medeiros RN Position: [facility] RN Member Role: Primary Care Nurse Name: Linnette De La O RN Position: [facility] REFRIGERATION MECHANIC HELPER Member Role: Primary Care Nurse Name: Alina Castillo NP Position: [facility] Associate Professional Member Role: Primary Care Nurse Address: Address: [address] [place] [address]- [place] Name: Mary Anne Kilpatrick RN Position: [facility] MR W/ Merge Member Role: Primary Care Nurse Name: Nicole Hernández RN Position: [facility] RN Member Role: Primary Care Nurse Name: Lindsay Srinivasan CNM Position: [facility] Orthodontic Technician Member Role: Primary Care Nurse Address: Address: [address] [place], [place] [address] [address]- [place] Name: Larissa Olson [place] Position: [facility] RN Member Role: Primary Care Nurse Name: Karen Roa RN Position: [facility] ED RN W/OE and Tasks Member Role: Primary Care Nurse Name: Mary Alice Stevens RN Position: [facility] RN Member Role: Primary Care Nurse Name: Beverly Grey Position: [facility] RN Member Role: Primary Care Nurse Name: Alexy Geronimo RN Position: [facility] RN Member Role: Primary Care Nurse Name: Raúl Rudolph DO Position: [facility] STRIKE ON MACHINE OPERATOR MD Member Role: Lifetime STRIKE ON MACHINE OPERATOR Physician Address: Address: [address] [facility] [place] [address]- [place] Name: Evelyn Haynes RN Position: [facility] RN Member Role: Primary Care Nurse Name: Crissy Metzger RN Position: [facility] RN Member Role: Primary Care Nurse Name: Elisa Gilbert RN Position: [facility] RN Member Role: Primary Care Nurse Name: Corina Solorio RN Position: [facility] AMB Nurse Member Role: Primary Care Nurse Name: Shawnee Lane RN Position: [facility] ED RN W/OE and Tasks Member Role: Primary Care Nurse Name: Erna Douglass RN Position: [facility] SN RN Member Role: Primary Care Nurse Name: Keyana Ndiaye RN Position: [facility] Supervisor Correspondence Section Member Role: Primary Care Nurse Name: Anabella Nicholson RN Position: [facility] AMB Nurse Member Role: Primary Care Nurse Name: Brenda Tomas RN Position: [facility] Outreach Member Role: Primary Care Nurse Name: Ramona Ybarra RN Position: [facility] RN Member Role: Primary Care Nurse Address: Address: [address] [place] [address] Name: Nancy Gallagher RN Position: [facility] Supervisor Correspondence Section Member Role: Primary Care Nurse Name: Evelyn Allen RN Position: [facility] OB RN Member Role: Primary Care Nurse Name: Jackelin Watt RN Position: [facility] RN Member Role: Primary Care Nurse Name: Raymundo Elizabeth RN Position: [facility] SN RN Member Role: Primary Care Nurse Name: Opal Calderon RN Position: [facility] RN Member Role: Primary Care Nurse Name: Timmy RNStephanieeekaleatha Position: [facility] SN RN Member Role: Primary Care Nurse Care Team Related Persons Name: BARTOLOME IBRAHIM Address: home [address] [place], [place] Name: GIANLUCA IBRAHIM Address: [address] [place], [place] Name: ABBIE IBRAHIM Address: [address] [place], [place] Name: SIM CERDA Name: DIANE CERDA Address: home [address] [place] [address] Name: SOLO CORRIGAN Address: [address] [place], [place] Name: SOLO FLORES Address: [address] [place], [place] Name: RAYMUNDO MAYFIELD Address: home [address] [place] [address]
--- OUTSIDE RECORDS SUMMARY | 2024-01-27 11:25 | XMS_ITS | Continuity of Care Document ---
Author Organization [facility] Address [address] [place] [address]- Care Team Providers Care Steam Fitter Name Role Phone Dash WILCOX ([place]), Paola Anderson Primary Care Physician Encounter [facility] Date(s): 08/13/23 - 10/06/[address] [address]- Attending Physician: Manda Cheng MD Admitting Physician: Manda Cheng MD Allergies, Adverse Reactions, Alerts Substance Reaction [...] 0 Refills, Maintenance, 07/15/23 11:42:00 EDT, Tablet, [facility] #[id number], Partial fill upon patient request if the [...] 4 Refills, Maintenance, 08/10/23 14:21:00 EST, Tablet, [facility] #[id number], Partial fill upon patient request if the prescription is fora schedule II opioid drug., 170, cm, 08/05/23 3:21:... Start Date: 08/10/23 Stop Date: 01/07/24 Status: Ordered Metoprolol Tartrate 100 mg oral tablet 1 tablet, By Mouth, 2 times a day, # 60 tablet, 0 Refills, Maintenance, 09/10/23 16:43:00 EST, [facility] #[id number], 170, cm, 08/27/23 7:32:00 EST, Height, 99, kg, 08/18/23 9:13:00 EST, Dry Weight Start Date: 09/10/23 Status: Ordered montelukast 10 mg oral tablet 10 mg, 1, tablet, By Mouth, Daily in PM, Maintenance, 08/18/23 8:47:00 EST Start Date: 08/18/23 Status: Ordered ondansetron 4 mg oral tablet, disintegrating 2 tablet = 8 mg, By Mouth, Every 8 hours, PRN Nausea & Vomiting, # 1 tablet, 0 Refills, Maintenance, 05/13/23 10:33:00 EDT, Tablet, [facility] #[id number], Partial fill upon patient request if the prescription is for a schedule II opioid drug., 1... Start Date: 05/13/23 Stop Date: 05/16/23 Status: Ordered potassium chloride 10 mEq oral tablet, extended release 2 tablet = 20 mEq, By Mouth, Daily, # 14 tablet, 0 Refills, Soft Stop, 08/27/23 8:49:00 EST, ER Tablet, [facility] #[id number], Partial fill upon patient request if the [...] capsule, 4 Refills, Maintenance, 08/10/23 14:14:00 EST, [facility] #[id number], Partial fill upon patient request if the [...] Refills, Soft Stop, 05/27/23 14:16:00 EDT, Powder, [facility] #[id number], Partial fill upon patient... Start Date: 05/27/23 Status: Ordered spironolactone 25 mg oral tablet 1, tablet, By Mouth, Daily, # 30 tablet, Refills 0, Maintenance, 09/10/23 16:43:00 EST, Route to Pharmacy Electronically, [facility] #[id number], 170, cm, 08/27/23 7:32:00 EST, Height, 99, kg, 08/18/23 9:13:00 EST, Dry Weight Start Date: 09/10/23 Status: Ordered Wellbutrin SR 100 mg/12 hours oral tablet, extended release 1 tablet = 100 mg, By Mouth, Daily, # 30 tablet, 4 Refills, Maintenance, 08/10/23 14:26:00 EST, [facility] #[id number], Partial fill upon patient request if the prescription is for a schedule IIopioid drug., 170, cm, 08/05/23 3:21:00 EST, Height... Start Date: 08/10/23 Stop Date: 01/07/24 Status: Ordered Problem List Condition Confirmation Course Effective Dates Status H ealth Status Informant Abdominal pain Confirmed Active Asthma Confirmed Active Pacemaker, Biotronik, inserted 10/29/14 1 Confirmed Active Chest pain Confirmed Active Narcotic dependence Confirmed Active COVID-19 2 Confirmed 08/27/23 Active Essential hypertension Confirmed Active Gastroesophageal reflux disease Confirmed Active S/p REFUGIO-BSO Confirmed Active Hyperlipidemia with target LDL less than 100 Confirmed Active Adrenal insufficiency Confirmed Active Mast cell disease Confirmed Active Normal coronary arteries Confirmed Active Obese class I Confirmed Active Ocular migraine Confirmed Active Opioid dependence 3 Confirmed Active Polypharmacy Confirmed Active PTSD (post-traumatic stress disorder) Confirmed Active PTSD (post-traumatic stress disorder) Confirmed Active Functional overlay Confirmed Active MDD (major depressive disorder), recurrent episode, mild Confirmed Active SVT (supraventricular tachycardia) Confirmed Active 1MRI compatible 2Problem added by Discern Expert 3IAROGENIC Social History Social History Type Response Smoking [...] information Care Team Personnel Name: Dash WILCOX ([place]) , Paola Anderson Position: [facility] Outreach Member Role: PCP Address: Address: [address] [place] [phone] [place] Name: Daina Ibrahim RN Position: [facility] ED RN W/OE and Tasks Member Role: Primary Care Nurse Name: Madeline Baird RN Position: [facility] ED RN W/OE and Tasks Member Role: Primary Care Nurse Name: Teresa Carpio Position: [facility] RN Member Role: Primary Care Nurse Name: Inge Elizabeth RN Position: [facility] SN RN Member Role: Primary Care Nurse Name: Kelley Prasad RN Position: [facility] ED RN W/OE and Tasks Member Role: Primary Care Nurse Name: Cindy Medeiros RN Position: [facility] RN Member Role: Primary Care Nurse Name: Linnette De La O RN Position: [facility] MANAGER E LEARNING Member Role: Primary Care Nurse Name: Alina Castillo NP Position: [facility] Associate Professional Member Role: Primary Care Nurse Address: Address: [address] [place] [address]- [place] Name: Mary Anne Kilpatrick RN Position: [facility] MR W/ Merge Member Role: Primary Care Nurse Name: Nicole Hernández RN Position: [facility] RN Member Role: Primary Care Nurse Name: Lindsay Srinivasan CNM Position: [facility] Management Services Technician Member Role: Primary Care Nurse Address: Address: [address] [place] [address]- [place] Name: Kiana Sabillon RN Position: [facility] RN Member Role: Primary Care Nurse Name: Larissa Olson [place] Position: [facility] RN Member Role: Primary Care Nurse Name: Karen Roa RN Position: [facility] ED RN W/OE and Tasks Member Role: Primary Care Nurse Name: Mary Alice Stevens RN Position: [facility] RN Member Role: Primary Care Nurse Name: Beverly Grey Position: [facility] RN Member Role: Primary Care Nurse Name: Alexy Geronimo RN Position: [facility] ED RN W/OE and Tasks Member Role: Primary Care Nurse Name: Raúl Rudolph DO Position: [facility] STRAIGHTENING MACHINE FEEDER MD Member Role: Lifetime STRAIGHTENING MACHINE FEEDER Physician Address: Address: [address] [place] [address]- Name: Evelyn Haynes RN Position: [facility] RN Member Role: Primary Care Nurse Name: Crissy Metzger RN Position: [facility] RN Member Role: Primary Care Nurse Name: Elisa Gilbert RN Position: [facility] RN Member Role: Primary Care Nurse Name: Corina Solorio RN Position: [facility] AMB Nurse Member Role: Primary Care Nurse Name: Shawnee Lane RN Position: [facility] ED RN W/OE and Tasks Member Role: Primary Care Nurse Name: Ana Estrada RN Position: [facility] RN Member Role: Primary Care Nurse Name: Eran Douglass RN Position: [facility] RN Member Role: Primary Care Nurse Name: Keyana Ndiaye RN Position: [facility] Senior Patient Account Representative Member Role: Primary Care Nurse Name: Anabella Nicholson RN Position: [facility] AMB Nurse Member Role: Primary Care Nurse Name: Brenda Tomas RN Position: [facility] Outreach Member Role: Primary Care Nurse Name: Ramona Ybarra RN Position: [facility] RN Member Role: Primary Care Nurse Address: Address: [address] [place] [address]- Name: Nancy Gallagher RN Position: [facility] Senior Patient Account Representative Member Role: Primary Care Nurse Name: Evelyn Allen RN Position: [facility] OB RN Member Role: Primary Care Nurse Name: Jackelin Watt RN Position: [facility] RN Member Role: Primary Care Nurse Name: Raymundo Elizabeth RN Position: [facility] SN RN Member Role: Primary Care Nurse Name: Opal Calderon RN Position: [facility] RN Member Role: Primary Care Nurse Name: Yadiel Warner RN Position: [facility] SN RN Member Role: Primary Care Nurse Care Team Related Persons Name: BARTOLOME IBRAHIM Address: [address] [place], [place] Name: GIANLUCA IBRAHIM Address: [address] Name: ABBIE IBRAHIM Address: [address] [place], [place] Name: SIM CERDA Name: DIANE CERDA Address: [address] [address] Name: SOLO CORRIGAN Address: [address] Name: SOLO FLORES Address: home [address] [place] [address] Name: RAYMUNDO MAYFIELD Address: [address] [place] [address]
--- OUTSIDE RECORDS SUMMARY | 2024-01-27 11:25 | XMS_ITS | Continuity of Care Document ---
Author Organization [facility] Address [address] [place] [address]- Care Team Providers Care Ballast Inspector Name Role Phone Maranda WILCOX, Silvio Martinez Primary Care Physician Encounter [facility] Date(s): 02/19/21 - 03/21/[address] [address]- Allergies, Adverse Reactions, Alerts Substance Reaction Severity [...] tablet, 0 Refills, Maintenance, 12/26/20 12:55:00 EDT, [facility] #[id number], Partial fill upon patient request if the prescription is for a schedule II opioid drug., 170, cm,... Start Date: 12/26/20 Status: Ordered Potassium Chloride = 40 mEq, By Mouth, 2 times a day, 0 Refills, Maintenance, 01/20/21 5:39:00 EDT, Partial fill upon patient request if the prescription is for a schedule II opioid drug. Start Date: 01/20/21 Status: Ordered Potassium Chloride (Pdn-Zyvk-[id number] M20) 20 mEq oral tablet, extended release 1 tablet = 20 mEq, By Mouth, 2 times a day, # 10 tablet, 0 Refills, Maintenance, 01/20/21 7:48:00 EDT, [facility] #[id number], Partial fill upon patient request if the [...] Refills, Soft Stop, 10/02/20 11:57:00 EST, Powder, [facility] #[id number], Partial fill upon patient... Start Date: 10/02/20 [...] 0 Refills, Maintenance, 01/20/21 7:49:00 EDT, Tablet, [facility] #[id number], Partial fill upon patient request if the [...]
--- OUTSIDE RECORDS SUMMARY | 2024-01-27 11:25 | XMS_ITS | Continuity of Care Document ---
Author Organization [facility] Address [address] [place] [address]- Care Team Providers Care Health Care Manager Name Role Phone Bienvenido WILCOX, Agustín Joaquin Primary Care Physician [phone] Encounter [facility] Date(s): 03/18/23 - 04/17/23 [facility] [address] [place] [address]- Allergies, Adverse Reactions, Alerts Substance Reaction Severity [...] 12/31/22 14:22:00 EDT, Route to Pharmacy Electronically, [facility] #[id number], Partial fill upon patient request if the prescription is for a schedule II opi... Start Date: 12/31/22 Status: Ordered Aspirin Low Dose 81 mg oral delayed release tablet 1 tablet, By Mouth, Daily, # 30 tablet, 3 Refills, Maintenance, 08/17/22 15:43:00 EST, [facility] #[id number], 170, cm, 05/13/22 17:18:00 EDT, Height, 88.8, [...] 01/08/21 13:59:00 EDT, Route to Pharmacy Electronically, [facility] #[id number], Partial fill upon patient request if the prescription is for a sched... Start Date: 01/08/21 Status: Ordered Flonase 50 mcg/inh nasal spray 2 sprays, Nares, Both, 2 times a day, PRN Congestion, # 16 Gm, 0 Refills, Maintenance, 08/20/20 11:17:00 EST, [place], [facility] #[id number], Partial fill upon patient request if the prescriptionis for a schedule II opioid drug., 170, cm, ... Start Date: 08/20/20 Status: Ordered gabapentin 300 mg oral capsule 300 mg, 1, capsule, By Mouth, 2 times a day, # 60 capsule, Refills 4, Tot. Refills 4, Maintenance, 11/11/22 15:13:00 EST, Route to Pharmacy Electronically, [facility] #[id number], Partial fill upon patient request if the [...] 12/31/22 14:22:00 EDT, Route to Pharmacy Electronically, [facility] #[id number], Partial fill upon patient request if the prescription is for a sched... Start Date: 12/31/22 Stop Date: 12/26/23 Status: Ordered KlonoPIN 1 mg oral tablet 1 tablet = 1 mg, By Mouth, 2 times a day, dose is BID, # 60 tablet, 4 Refills, Maintenance, 03/10/23 15:33:00 EDT, [facility] #[id number], NO EARLY REFILLS, 170, cm, 02/01/23 7:48:00 [...] tablet, 0 Refills, Maintenance, 12/31/22 14:21:00 EDT, [facility] #[id number], Partial fill upon patient request if the prescription is for a schedule II opioid drug., 170, cm, 12/31/22 13:57:00 ED... Start Date: 12/31/22 Status: Ordered nitroglycerin 0.4 mg sublingual tablet 1 tablet, Sublingual, Every 5 minutes, PRN NEEDED FOR CHEST PAIN MAX 3 DOSES IN 15 MINUTES IF PAIN PERSISTS CALL 911, # 100 tablet, 3 Refills, Maintenance, 12/21/22 11:43:00 EDT, [facility] #[id number], 170, cm, 05/13/22 17:18:00 EDT, Height,... Start Date: 12/21/22 Status: Ordered ondansetron 8 mg oral tablet, disintegrating 1 tablet = 8 mg, By Mouth, 3 times a day, PRN Nausea & Vomiting, # 30 tablet, 0 Refills, Maintenance, 12/26/20 12:55:00 EDT, [facility] #[id number], Partial fill upon patient request if the [...] capsule, 4 Refills, Maintenance, 11/11/22 15:17:00 EST, [facility] #[id number], Partial fill upon patient request if the [...] 03/10/23 15:36:00 EDT, Route to Pharmacy Electronically, [facility] #[id number], Partial fill upon patient request if the [...] Refills, Soft Stop, 04/20/22 10:54:00 EDT, Powder, [facility] #[id number], Partial fill upon patient... Start Date: 04/20/22 Status: Ordered spironolactone 25 mg oral tablet 25 mg, 1, tablet, By Mouth, Daily, # 90 tablet, Refills 3, Tot. Refills 3, Maintenance, 09/13/22 16:11:00 EST, Route to Pharmacy Electronically, [facility] #[id number], Partial fill upon patientrequest if the prescription is for a schedule II op... Start Date: 09/13/22 Stop Date: 09/08/23 Status: Ordered traZODone 300 mg oral tablet 1 tablet = 300 mg, By Mouth, Daily at bedtime, # 30 tablet, 4 Refills, Maintenance, 11/11/22 15:09:00 EST, [facility] #[id number], Partial fill upon patient request if the [...] Team Personnel Name: Daina Ibrahim RN Position: [facility] ED RN W/OE and Tasks Member Role: Primary Care Nurse Name: Madeline Baird RN Position: [facility] ED RN W/OE and Tasks Member Role: Primary Care Nurse Name: Teresa Carpio Position: [facility] RN Member Role: Primary Care Nurse Name: Inge Elizabeth RN Position: [facility] SN RN Member Role: Primary Care Nurse Name: Kelley Prasad RN Position: [facility] RN Member Role: Primary Care Nurse Name: Cindy Medeiros RN Position: [facility] RN Member Role: Primary Care Nurse Name: Linnette De La O RN Position: [facility] DEER FARMER Member Role: Primary Care Nurse Name: Alina Castillo NP Position: [facility] Associate Professional Member Role: Primary Care Nurse Address: Address: [address] [place] [address]- [place] Name: Mary Anne Kilpatrick RN Position: [facility] MR W/ Merge Member Role: Primary Care Nurse Name: Agustín Faria MD Position: [facility] Outreach Member Role: PCP Address: Address: [address] [facility] [address] [facility] [address] [place] [address]- [place] Name: Nicole Hernández RN Position: [facility] RN Member Role: Primary Care Nurse Name: Douglas Harris Position: [facility] Cardio/Pulm Mgr ([facility]) Member Role: Primary Care Nurse Name: Lindsay Srinivasan CNM Position: [facility] Learning Solutions Specialist Member Role: Primary Care Nurse Address: Address: [address] [facility] [place] [address]- [place] Name: Larissa Olson [place] Position: [facility] RN Member Role: Primary Care Nurse Name: Karen Roa RN Position: [facility] ED RN W/OE and Tasks Member Role: Primary Care Nurse Name: Mary Alice Stevens RN Position: [facility] RN Member Role: Primary Care Nurse Name: Beverly Grey Position: [facility] RN Member Role: Primary Care Nurse Name: Alexy Geronimo RN Position: [facility] RN Member Role: Primary Care Nurse Name: Raúl Rudolph DO Position: [facility] DIGITAL PUBLISHING SPECIALIST MD Member Role: Lifetime DIGITAL PUBLISHING SPECIALIST Physician Address: Address: [address] [place] [address]- [place] Name: Evelyn Haynes RN Position: [facility] RN Member Role: Primary Care Nurse Name: Crissy Metzger RN Position: [facility] RN Member Role: Primary Care Nurse Name: Elisa Gilbert RN Position: [facility] RN Member Role: Primary Care Nurse Name: Corina Solorio RN Position: [facility] SN RN Member Role: Primary Care Nurse Name: Shawnee Lane RN Position: [facility] ED RN W/OE and Tasks Member Role: Primary Care Nurse Name: Erna Douglass RN Position: [facility] SN RN Member Role: Primary Care Nurse Name: Keyana Ndiaye RN Position: [facility] Hospital Talcer Member Role: Primary Care Nurse Name: Anabella Nicholson RN Position: [facility] AMB Nurse Member Role: Primary Care Nurse Name: Brenda Tomas RN Position: [facility] Outreach Member Role: Primary Care Nurse Name: Ramona Ybarra RN Position: [facility] RN Member Role: Primary Care Nurse Address: Address: [address] [place] [address]- Name: Nancy Gallagher RN Position: [facility] Hospital Talcer Member Role: Primary Care Nurse Name: Evelyn Allen RN Position: [facility] OB RN Member Role: Primary Care Nurse Name: Jackelin Watt RN Position: [facility] RN Member Role: Primary Care Nurse Name: Raymundo Elizabeth RN Position: [facility] SN RN Member Role: Primary Care Nurse Name: Opal Calderon RN Position: [facility] RN Member Role: Primary Care Nurse Name: Timmy RNYadiel Position: [facility] SN RN Member Role: Primary Care Nurse Care Team Related Persons Name: BARTOLOME IBRAHIM Address: home [address] [place], [place] Name: GIANLUCA IBRAHIM Address: [address] [place], [place] Name: ABBIE IBRAHIM Address: home [address] [place], [place] Name: SIM CERDA Name: DIANE CERDA Address: home [address] [place] [address] Name: SOLO CORRIGAN Address: [address] [place] [address] Name: SOLO FLORES Address: [address] [place], [place] Name: RAYMUNDO MAYFIELD Address: [address] [place] [address]
--- OUTSIDE RECORDS SUMMARY | 2024-01-27 11:25 | XMS_ITS | Continuity of Care Document ---
Author Organization [facility] Address [address] [place] [address]- Care Team Providers Care Train Planner Name Role Phone Maranda WILCOX, Silvio Martinez Primary Care Physician Encounter [facility] Date(s): 12/26/20 - 01/25/21 [facility] [address] [place] [address]- Allergies, Adverse Reactions, Alerts Substance Reaction Severity [...] labs sent to Dr Low and Dr ZiDr Yoseph mahajan, 01/04/21 12:09:00 EDT, Supply, 170, cm, 01/02/21 [...] tablet, 0 Refills, Maintenance, 12/26/20 12:55:00 EDT, [facility] #[id number], Partial fill upon patient request if the prescription is for a schedule II opioid drug., 170, cm,... Start Date: 12/26/20 Status: Ordered Potassium Chloride = 40 mEq, By Mouth, 2 times a day, 0 Refills, Maintenance, 01/20/21 5:39:00 EDT, Partial fill upon patient request if the prescription is for a schedule II opioid drug. Start Date: 01/20/21 Status: Ordered Potassium Chloride (Sya-Omvo-Wxj M20) 20 mEq oral tablet, extended release 1 tablet = 20 mEq, By Mouth, 2 times a day, # 10 tablet, 0 Refills, Maintenance, 01/20/21 7:48:00 EDT, [facility] #[id number], Partial fill upon patient request if the [...] Refills, Soft Stop, 10/02/20 11:57:00 EST, Pow[place], [facility] #[id number], Partial fill upon patient... Start Date: 10/02/20 [...] 0 Refills, Maintenance, 01/20/21 7:49:00 EDT, Tablet, [facility] #51701, Partial fill upon patient request if the [...]
--- OUTSIDE RECORDS SUMMARY | 2024-01-27 11:25 | XMS_ITS | Continuity of Care Document ---
Author Organization [facility] Address [address] [place] [address]- Care Team Providers Care Hemmer Lockstitch Name Role Phone Agustín Faria MD Primary Care Physician Encounter [facility] Date(s): 05/08/22 - 06/07/[address] [address]- Allergies, Adverse Reactions, Alerts Substance Reaction Severity [...] opioid drug. Start Date: 12/30/20 Status: Ordered buPROPion 150 mg/12 hours (SR) oral tablet, extended release 1 tablet = 150 mg, By Mouth, Daily, # 30 tablet, 4 Refills, Maintenance, 02/04/22 8:07:00 EDT, [facility] #[id number], Partial fill upon patient request if the prescription is for a schedule II opioid drug., 170, cm, 01/21/22 12:57:00 EDT, Height... Start Date: 02/04/22 Stop Date: 07/04/22 Status: Ordered busPIRone 15 mg oral tablet 1 tablet = 15 mg, By Mouth, 3 times a day, # 90 tablet, 4 Refills, Maintenance, 02/04/22 8:08:00 EDT, Tablet, [facility] #[id number], Partial fill upon patient request if the prescription is fora schedule II opioid drug., 170, cm, 01/21/22 12:57... Start Date: 02/04/22 Stop Date: 07/04/22 Status: Ordered famotidine 20 mg oral tablet 20 mg, 1, tablet, By Mouth, 2 times a day, # 180 tablet, Refills 0, Tot. Refills 0, Maintenance, 01/08/21 13:59:00 EDT, Route to Pharmacy Electronically, [facility] #[id number], Partial fill upon patient request if the prescription is for a sched... Start Date: 01/08/21 Status: Ordered Flonase 50 mcg/inh nasal spray 2 sprays, Nares, Both, 2 times a day, PRN Congestion, # 16 Gm, 0 Refills, Maintenance, 08/20/20 11:17:00 EST, [place], [facility] #[id number], Partial fill upon patient request if the prescriptionis for a schedule II opioid drug., 170, cm, ... Start Date: 08/20/20 Status: Ordered Insulin Syringe, BD Ultra-Fine 1 [...] tablet, Refills 3, Tot. Refills 3, Maintenance, 09/25/22 15:38:00 EST, Route to Pharmacy Electronically, [facility] #[id number], Partial fill upon patient request if the prescription is for a sched... Start Date: 09/25/22 Stop Date: 09/20/23 Status: Ordered isosorbide mononitrate 30 mg oral tablet, extended release 30 mg, 1, tablet, By Mouth, Daily in AM, for 90 days, # 90 tablet, Refills 3, Tot. Refills 3, Hard Stop 09/25/22 15:38:00 EST, 09/30/21 15:38:00 EST, Route to Pharmacy Electronically, [facility] #[id number], Partial fill upon patient request if t... Start Date: 09/30/21 Stop Date: 09/25/22 Status: Ordered KlonoPIN 1 mg oral tablet 1 tablet = 1 mg, By Mouth, 2 times a day, 0.5 mg midday, # 75 tablet, 4 Refills, Maintenance, 02/04/22 8:09:00 EDT, [facility] #[id number], 170, cm, 01/21/22 12:57:00 EDT, Height, 80.9, kg, 01/06/22 14:39:00 EDT, Dry Weight Start Date: 02/04/22 Stop Date: 07/04/22 Status: Ordered lidocaine 1.8% topical film 1 patch, Topically, Daily, leave on up to 12 hours, # 30 each, 0 Refills, Maintenance, 08/24/19 8:56:45 EST, Film Start Date: 08/24/19 Status: Ordered Metoprolol Tartrate 50 mg oral tablet 1.5 tablet = 75 mg, By Mouth, 2 times a day, Take 75 mg twice daily, # 270 tablet, 3 Refills, Maintenance, 09/13/22 16:21:00 EST, Tablet, [facility] #[id number], Partial fill upon patient request if the prescription is for a schedule II opioid dr... Start Date: 09/13/22 Stop Date: 09/08/23 Status: Ordered Metoprolol Tartrate 50 mg oral tablet 1.5 tablet = 75 mg, By Mouth, 2 times a day, for 90 days, Take 75 mg twice daily, # 270 tablet, 3 Refills, Hard Stop 09/13/22 16:21:00 EST, 09/18/21 16:21:00 EST, Tablet, [facility] #[id number],Partial fill upon patient request if the prescripti... Start Date: 09/18/21 Stop Date: 09/13/22 Status: Ordered nitroglycerin 0.4 mg sublingual tablet 1 tablet = 0.4 mg, Sublingual, Every 5 minutes, PRN as needed for chest pain, not to exceed 3 doses/15 min--if pain persists, seek medical attention, # 100 tablet, 3 Refills, Maintenance, 10/16/21 11:32:00 EST, Tablet, [facility] #[id number], Par... Start Date: 10/16/21 Stop Date: 02/13/22 Status: Ordered ondansetron 8 mg oral tablet, disintegrating 1 tablet = 8 mg, By Mouth, 3 times a day, PRN Nausea & Vomiting, # 30 tablet, 0 Refills, Maintenance, 12/26/20 12:55:00 EDT, [facility] #[id number], Partial fill upon patient request if the prescription is for a schedule II opioid drug., 170, cm,... Start Date: 12/26/20 Status: Ordered oxyCODONE 10 mg oral tablet = 10 mg, By Mouth, Every 8 hours, as needed; on a 15/month taper, # 60 tablet, 0 Refills, Maintenance, 03/24/21 11:54:00 EDT, Tablet, [facility] #[id number], Partial fill upon patient request ifthe prescription is for a schedule II opioid drug.,... Start Date: 03/24/21 Status: Ordered Potassium Chloride = 40 mEq, [...] cap, # 60 capsule, 4 Refills, Maintenance, 02/04/22 8:06:00 EDT, [facility] #[id number], Partial fill upon patient request if the prescription... Start Date: 02/04/22 Stop Date: 07/04/22 Status: Ordered Protonix 20 mg oral delayed release tablet 2 tablet = 40 mg, By Mouth, Daily, # 60 tablet, 5 Refills, Maintenance, 01/08/21 13:58:00 EDT, [facility], 170, cm, 01/08/21 13:24:00 EDT, Height, 80.45, kg, 12/30/20 14:46:00 EDT, Dry Weight Start Date: 01/08/21 Status: Ordered Senna = 8.5 mg, By Mouth, 2 times a day, 0 Refills, Maintenance, 11/06/16 11:22:55 Start Date: 11/06/16 Status: Ordered Solu-CORTEF Act-O-Vial 100 mg injection See Instructions, use daily SQ for adrenal insufficiency. 14 mg qam and 7 mg qpm please provide extra 2 mg vial for stress dosing., # 8 each, 11 Refills, Soft Stop, 04/20/22 10:54:00 EDT, Powder, [facility] #[id number], Partial fill upon patient... Start Date: 04/20/22 Status: Ordered spironolactone 25 mg oral tablet 25 mg, 1, tablet, By Mouth, Daily, # 90 tablet, Refills 3, Tot. Refills 3, Maintenance, 09/13/22 16:11:00 EST, Route to Pharmacy Electronically, [facility] #[id number], Partial fill upon patientrequest if the prescription is for a schedule II op... Start Date: 09/13/22 Stop Date: 09/08/23 Status: Ordered spironolactone 25 mg oral tablet 25 mg, 1, tablet, By Mouth, Daily, for 90 days, # 90 tablet, Refills 3, Tot. Refills 3, Hard Stop 09/13/22 16:11:00 EST, 09/18/21 16:11:00 EST, Route to Pharmacy Electronically, [facility] #[id number], Partial fill upon patient request if the pre... Start Date: 09/18/21 Stop Date: 09/13/22 Status: Ordered traZODone 150 mg oral tablet 1 tablet = 150 mg, By Mouth, Daily at bedtime, # 30 tablet, 4 Refills, Maintenance, 02/04/22 8:14:00 EDT, Tablet, [facility] #[id number], Partial fill upon patient request if the prescription isfor a schedule II opioid drug., 170, cm, 01/21/22 1... Start Date: 02/04/22 Stop Date: 07/04/22 Status: Ordered Wheelchair See Instructions, # 1 [...] cell disease(Confirmed) Active Normal coronary arteries(Confirmed) Active Obese class I(Confirmed) Active Ocular migraine(Confirmed) Active Opioid dependence(Confirmed) 2 [...] x 20 yrs; entered on: 09/16/16 Sex Implantable Device List Procedure Provider Procedure Date Device Type Site Cystoscopy Retrograde Ureteral Stent Navneet Bruno Hernandez MD 07/09/21 Unknown Ureter Device Identifier Serial Number Lot or Batch Number Manufacturing Date Expiration Date Distinct Identification Code MRI Safety Implantable Status Assigning Authority Unknown Unknown Unknown Unknown 07/09/21 Unknown Unknown Active Un known Care Team Personnel Name: Agustín Faria MD Address: [address] [place] [address] [address] Agustín Faria [place], [place] [address]
--- OUTSIDE RECORDS SUMMARY | 2024-01-27 11:26 | XMS_ITS | Continuity of Care Document ---
Author Organization [facility] Address [address] [place] [address]- Care Team Providers Care Overlock Collar Setter Name Role Phone Maranda WILCOX, Silvio Martinez Primary Care Physician Encounter [facility] Date(s): 10/04/20 - 10/04/[address] [address]- Discharge Disposition: A-D/C Home Attending Physician: Balwinder Pozo MD Admitting Physician: Balwinder Pozo MD Referring Physician: Not on Staff, Referring [...] capsule, 1 Refills, Maintenance, 10/21/19 11:17:00 EST, [facility] #[id number], 1 capsule By Mouth 3 times a [...] 04/09/21 14:58:00 EDT, 04/09/20 14:57:00 EDT, Tablet, [facility] #[id number], 169, cm, 04/05/20 12:55:00 EDT, Height, 85, [...] tablet, 3 Refills, Maintenance, 05/28/20 11:56:00 EDT, [facility] #[id number], 170, cm, 05/27/20 0:11:00 EDT, Height,90.4, kg, [...] EDT, Capsule Start Date: 06/03/19 Status: Ordered Nicotine = 21 mg, Topically, Daily, 0 Refills, Maintenance, 03/08/20 16:52:00 EDT, Patch Start Date: 03/08/20 Status: Ordered ondansetron 4 mg oral tablet 1 tablet = 4 mg, By Mouth, Every 8 hours, PRN Nausea & Vomiting, # 20 tablet, 0 Refills, Maintenance, 06/18/20 16:48:00 EDT, Tablet, [facility] #[id number], 170, cm, 06/18/20 15:14:00 EDT, Height, 90.4, [...] Refills, Soft Stop, 10/02/20 11:57:00 EST, Powder, [facility] #[id number], Partial fill upon patient... Start Date: 10/02/20 [...] Exam Date Time Procedure Performing Provider Status 10/04/20 7:13 PM Chest 2 Views Frontal and Lat Yancy Lam; Laquita (Verified) Notes: (Chest 2 Views Frontal and Lat) Reason For Exam: Chest Pain;Other: RESULT: Chest 2 Views Frontal and Lat Chest 2 Views Frontal and Lat Hx of Present Illness: Pt started feeling nauseous around 11am today- took 8mg zofran po with no relief. 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 Pt was driving, pulled over and called EMS.; Reason: Other:; Chest Pain; Clinical Question(s): Other: COMPARISON: 06/18/2020 FINDINGS: LINES AND TUBES: Dual-lead left subclavian pacer/AICD wires are intact. LUNGS AND PLEURA: Clear lungs. Normal pulmonary vascularity. No pleural effusion. No pneumothorax. HEART, MEDIASTINUM AND DAGOBERTO: Heart is normal in size. Normal upper mediastinal and hilar contour. BONES AND SOFT TISSUES: No acute abnormality. IMPRESSION: No acute cardiopulmonary pathology. WSN: [id number] Ordering Physician: Balwinder Pozo Dictated By: Aleksandr Hopkins MD Dictated Date/Time: 10/04/20 7:22 pm Reviewed By: Aleksandr Hopkins MD Signed By: Aleksandr Hopkins MD Signed Date/Time: 10/04/20 7:22 pm Transcribed By: DIANE Transcribed Date/Time: 10/04/20 7:22 pm Vital Signs Most recent to oldest [Reference Range]: 1 2 3 Height 170 cm (10/04/20 7:07 PM) 170 cm (10/04/20 5:40 PM) 170 cm (10/04/20 5:33 PM) Weight 91 kg (10/04/20 7:07 PM) 91 kg (10/04/20 5:40 PM) 91 kg (10/04/20 5:33 PM) Oxygen Saturation [94-100 %] 99 % (10/04/20 7:07 PM) 97 % (10/04/20 5:33 PM) Pulse Rate [55-90 bpm] 79 bpm (10/04/20 7:07 PM) 81 bpm (10/04/20 5:33 PM) Body Mass Index [18.5-24.99] 31.49 *>HHI* (10/04/20 7:07 PM) 31.49 *>HHI* (10/04/20:33 PM) Blood Pressure [90-138/55-84 mm Hg] 125/85mm Hg (10/04/20 7:07 PM) 141/91mm Hg *H* (10/04/20 5:33 PM) Respiratory Rate [16-30 br/min] 18 br/min (10/04/20 7:07 PM) 20 br/min (10/04/20 5:33 PM) Temperature [96.8-100.4 DegF] 98.6 DegF (10/04/20 7:07 PM) 98.9 DegF (10/04/20 5:33 PM) Mode of Delivery (Oxygen) Room air (10/04/20 7:07 PM) Room air (10/04/20 5:33 PM) Blood pressure sites Arm, left (10/04/20 7:07 PM) Arm, right (10/04/20 5:33 PM) Temperature Route Oral (10/04/20 7:07 PM) Oral (10/04/20 5:33 PM) Dry Weight 91 kg (10/04/20 7:07 PM) 91 kg (10/04/20 5:40 PM) 91 kg (10/04/20 5:33 PM) Weight Obtained Via Patient/family state d (10/04/20 5:33 PM) Dry Weight Obtained Via Patient/family s tated (10/04/20 5:33 PM) Social History Social History Type Response Smoking Status 10 or more cigarette s (1/2 pack or more)/day in last 30 days entered on: 08/06/19 Sex
--- OUTSIDE RECORDS SUMMARY | 2024-01-27 11:26 | XMS_ITS | Continuity of Care Document ---
Author Organization [facility] Address [address] [place] [address]- Care Team Providers Care Woodworking Shop Hand Name Role Phone Mariella OCAMPO, Amelia Primary Care Physician Encounter [facility] Date(s): 01/16/20 - 02/15/20 [facility] [place] [address] [place] [address]- [facility] Attending Physician: Maximo Cano Admitting Physician: Maximo Cano Referring Physician: AdmtrMaximo Allergies, Adverse Reactions, Alerts [...] Stop 02/18/20 11:16:00EDT, 10/21/19 11:16:00 EST, Tablet, [facility] #[id number], 170, cm, 10/20/19 13:48:00 EST, Height, 92.3, kg, 10/15/19 6:38:00 EST, Dry Weight Start Date: 10/21/19 Stop Date: 02/18/20 Status: Ordered atorvastatin 20 mg oral tablet 1 tablet = 20 mg, By Mouth, Daily, # 90 tablet, 1 Refills, Maintenance, 10/21/19 11:16:00 EST, Tablet, [facility] #[id number], 170, cm, 10/20/19 13:48:00 EST, Height, 92.3, [...] 02/21/19 8:58:39 EDT, Route to Pharmacy Electronically, [id number], [facility] Start Date: 02/21/19 Stop Date: 04/22/19 Status: Ordered Creon 36,000 units oral delayed release capsule 1 capsule, By Mouth, 3 times a day, with each meal and snack, # 270 capsule, 1 Refills, Maintenance, 10/21/19 11:17:00 EST, [facility] #[id number], 1 capsule By Mouth 3 times a [...] 02/21/19 8:59:46 EDT, Route to Pharmacy Electronically, [id number], [facility] Start Date: 02/21/19 Stop Date: 09/19/19 [...] Refills, Maintenance, 12/05/19 20:49:00 EDT, DIS Tablet, [facility] #[id number], 170, cm, 12/05/19 19:19:00 EDT, Height, 88.7, [...]
--- OUTSIDE RECORDS SUMMARY | 2024-01-27 11:26 | XMS_ITS | Continuity of Care Document ---
Author Organization [facility] Address [address] [place] [address]- Care Team Providers Care Cryogenics Engineer Name Role Phone Mariella OCAMPO, Amelia Primary Care Physician [phone] Encounter [facility] Date(s): 12/05/19 - 12/05/[address] [address]- [facility] Discharge Disposition: A-D/C Home Attending [...] Stop 02/18/20 11:16:00EDT, 10/21/19 11:16:00 EST, Tablet, [facility] #[id number], 170, cm, 10/20/19 13:48:00 EST, Height, 92.3, kg, 10/15/19 6:38:00 EST, Dry Weight Start Date: 10/21/19 Stop Date: 02/18/20 Status: Ordered atorvastatin 20 mg oral tablet 1 tablet = 20 mg, By Mouth, Daily, # 90 tablet, 1 Refills, Maintenance, 10/21/19 11:16:00 EST, Tablet, [facility] #[id number], 170, cm, 10/20/19 13:48:00 EST, Height, 92.3, [...] 02/21/19 8:58:39 EDT, Route to Pharmacy Electronically, [id number], [facility] 3 Start Date: 02/21/19 Stop Date: 04/22/19 Status: Ordered Creon 36,000 units oral delayed release capsule 1 capsule, By Mouth, 3 times a day, with each meal and snack, # 270 capsule, 1 Refills, Maintenance, 10/21/19 11:17:00 EST, [facility] #[id number], 1 capsule By Mouth 3 times a [...] 08/24/19 9:15:39 EST, Route to Pharmacy Electronically, [id number], [facility] #[id number], 170, cm, 08/24/19 8:38:44 EST, H... Start [...] 0 Refills, Maintenance, 09/28/19 0:43:00 EST, Tablet, [facility] #[id number], 171, cm, 09/27/19 22:45:00 EST, Height, 92.2, [...] 0 Refills, Soft Stop, 09/28/19 0:51:00 EST, [facility] #[id number], 171, cm, 09/27/19 22:45:00 EST, Height, 92.2, [...] 02/21/19 8:59:46 EDT, Route to Pharmacy Electronically, [id number], [facility] 3 Start Date: 02/21/19 Stop Date: [...] Refills, Maintenance, 12/05/19 20:49:00 EDT, DIS Tablet, [facility] #[id number], 170, cm, 12/05/19 19:19:00 EDT, Height, 88.7, [...] [Reference Range]: 1 2 Height 170 cm (12/05/19 10:29 PM) 170 cm (12/05/19 7:19 PM) Weight 88.7 kg (12/05/19 10:29 PM) 88.7 kg (12/05/19 7:19 PM) Oxygen Saturation [94-100 %] 96 % (12/05/19 10:29 PM) 98 % (12/05/19 7:19 PM) Pulse Rate [55-90 bpm] 72 bpm (12/05/19 10:29 PM) 94 bpm *H* (12/05/19 7:19 PM) Body Mass Index [18.5-24.99] 30.69 *>HHI* (12/05/19 10:29 PM) Blood Pressure [90-138/55-84 mm Hg] 117/ 78mm Hg (12/05/19 10:29 PM) 132/89mm Hg (12/05/19 7:19 PM) Respiratory Rate [16-30 br/min] 16 br/mi n (12/05/19 10:29 PM) 17 br/min (12/05/19 7:19 PM) Temperature [96.8-100.4 DegF] 98.9 DegF (12/05/19 7:19 PM) Mode of Delivery (Oxygen) Room air (12/05/19 10:29 PM) Room air (12/05/19 7:19 PM) Blood pressure sites Arm, left (12/05/19 10:29 PM) Arm, left (12/05/19 7:19 PM) Temperature Route Oral (12/05/19 7:19 PM) Dry Weight 88.7 kg (12/05/19 10:29 PM) 88.7 kg (12/05/19 7:19 PM) Weight Obtained Via Standing scale (12/05/19 7:19 PM) Dry Weight Obtained Via Standing scale (12/05/19 7:19 PM) Social History Social History Type Response Smoking Status 10 or more cigarette s (1/2 pack or more)/day in last 30 days entered on: 08/06/19 Sex
--- OUTSIDE RECORDS SUMMARY | 2024-01-27 11:26 | XMS_ITS | Continuity of Care Document ---
Author Organization [facility] Address [address] [place] [address]- Care Team Providers Care Senior Java Programmer Name Role Phone Maranda WILCOX, Silvio Martinez Primary Care Physician Encounter [facility] Date(s): 11/27/20 - 02/28/21 [facility] [address] [place] [address]- Attending Physician: Thom WILCOX, Manda Castro Allergies, Adverse Reactions, Alerts Substance Reaction Severity [...] tablet, 0 Refills, Maintenance, 12/26/20 12:55:00 EDT, [facility] #[id number], Partial fill upon patient request if the prescription is for a schedule II opioid drug., 170, cm,... Start Date: 12/26/20 Status: Ordered Potassium Chloride = 40 mEq, By Mouth, 2 times a day, 0 Refills, Maintenance, 01/20/21 5:39:00 EDT, Partial fill upon patient request if the prescription is for a schedule II opioid drug. Start Date: 01/20/21 Status: Ordered Potassium Chloride (Yct-Ziwq-Blg M20) 20 mEq oral tablet, extended release 1 tablet = 20 mEq, By Mouth, 2 times a day, # 10 tablet, 0 Refills, Maintenance, 01/20/21 7:48:00 EDT, [facility] #[id number], Partial fill upon patient request if the [...] Refills, Soft Stop, 10/02/20 11:57:00 EST, Powder, [facility] #[id number], Partial fill upon patient... Start Date: 10/02/20 [...] 0 Refills, Maintenance, 01/20/21 7:49:00 EDT, Tablet, [facility] #[id number], Partial fill upon patient request if the [...]
--- OUTSIDE RECORDS SUMMARY | 2024-01-27 11:26 | XMS_ITS | Continuity of Care Document ---
Author Organization [facility] [place] Address [address] [place] [address]- Care Team Providers Care Nursing Home Physician Name Role Phone Dash WILCOX (ME), Paola Anderson Primary Care Physician Encounter [facility] Date(s): 06/03/23 - 07/03/[address] [address]- Attending Physician: Maximo Cano Admitting Physician: AdmMaximo diaz Referring Physician: Admtr, Maximo Referring Physician: Vero Cottrell Allergies, Adverse Reactions, [...] Other : Medications (Vitamin D3) Cholecalciferol 400 CUSTODIAL units/mL oral syringe 1 mL = 10 [...] tablet, 3 Refills, Maintenance, 08/17/22 15:43:00 EST, [facility] #12339, 170, cm, 05/13/22 17:18:00 EDT, Height, 88.8, [...] 01/08/21 13:59:00 EDT, Route to Pharmacy Electronically, [facility] #51346, Partial fill upon patient request if the prescription is for a sched... Start Date: 01/08/21 Status: Ordered Flonase 50 mcg/inh nasal spray 2 sprays, Nares, Both, 2 times a day, PRN Congestion, # 16 Gm, 0 Refills, Maintenance, 08/20/20 11:17:00 EST, [place], [facility] #01160, Partial fill upon patient request if the prescriptionis for a schedule II opioid drug., 170, cm, ... Start Date: 08/20/20 Status: Ordered gabapentin 300 mg oral capsule See Instructions, 1 cap in the AM, 2 in the afternoon and 2 at bedtime, # 1 each, Refills 4, Tot. Refills 4, Maintenance, 11/11/22 15:13:00 EST, Instructions Replace Required Details, Route to Pharmacy Electronically, [facility] #30695, Part... Start Date: 11/11/22 Status: Ordered Insulin [...] 05/14/23 20:59:00 EDT, Route to Pharmacy Electronically, [facility] #52256, Partial fill upon patient request if the [...] 0 Refills, Maintenance, 05/13/23 10:33:00 EDT, Tablet, [facility] #11847, Partial fill upon patient request if the prescription is for a schedule II opioid drug., 1... Start Date: 05/13/23 Stop Date: 05/16/23 Status: Ordered prazosin 2 mg oral capsule 2 capsule = 4 mg, By Mouth, Daily at bedtime, if PO intake is low or BP low below 110/70 only take one cap, # 60 capsule, 4 Refills, Maintenance, 11/11/22 15:17:00 EST, [facility] #04763, Partial fill upon patient request if the [...] 03/10/23 15:36:00 EDT, Route to Pharmacy Electronically, [facility][id number], Partial fill upon patient request if the [...] Refills, Soft Stop, 05/27/23 14:16:00 EDT, [place], [facility] #[id number], Partial fill upon patient... Start Date: 05/27/23 Status: Ordered spironolactone 25 mg oral tablet 25 mg, 1, tablet, By Mouth, Daily, # 30 tablet, Refills 3, Tot. Refills 3, Maintenance, 05/14/23 20:55:00 EDT, Route to Pharmacy Electronically, [id number], Partial fill upon patientrequest if the prescription [...] Dash WILCOX (ME) , Paola Anderson Position: [facility] Outreach Member Role: PCP Address: Address: [address] [place] [phone] [place] Name: Daina Ibrahim RN Position: [facility] ED RN W/OE and Tasks Member Role: Primary Care Nurse Name: Madeline Baird RN Position: [facility] ED RN W/OE and Tasks Member Role: Primary Care Nurse Name: Teresa Carpio Position: [facility] RN Member Role: Primary Care Nurse Name: Inge Elizabeth RN Position: [facility] SN RN Member Role: Primary Care Nurse Name: Kelley Prasad RN Position: [facility] RN Member Role: Primary Care Nurse Name: Cindy Medeiros RN Position: [facility] RN Member Role: Primary Care Nurse Name: Linnette De La O RN Position: [facility] TELEGRAPH REPEATER INSTALLER Member Role: Primary Care Nurse Name: Alina Castillo NP Position: [facility] Associate Professional Member Role: Primary Care Nurse Address: Address: [address] [place] [address]- [place] Name: Mary Anne Kilpatrick RN Position: [facility] MR W/ Merge Member Role: Primary Care Nurse Name: Nicole Hernández RN Position: [facility] RN Member Role: Primary Care Nurse Name: Lindsay Srinivasan CNM Position: [facility] Bun Machine Operator Member Role: Primary Care Nurse Address: Address: [address] [place] [address] [place] [address]- [place] Name: Larissa Olson [place] Position: [facility] RN Member Role: Primary Care Nurse Name: Karen Roa RN Position: [facility] ED RN W/OE and Tasks Member Role: Primary Care Nurse Name: Mary Alice Stevens RN Position: [facility] RN Member Role: Primary Care Nurse Name: Beverly Grey Position: [facility] RN Member Role: Primary Care Nurse Name: Alexy Geronimo RN Position: [facility] RN Member Role: Primary Care Nurse Name: Raúl Rudolph DO Position: [facility] LIVESTOCK FEEDER MD Member Role: Lifetime LIVESTOCK FEEDER Physician Address: Address: [address] [facility] [place] [address]- [place] Name: Evelyn Haynes RN Position: [facility] RN Member Role: Primary Care Nurse Name: Crissy Metzger RN Position: [facility] RN Member Role: Primary Care Nurse Name: Elisa Gilbert RN Position: [facility] RN Member Role: Primary Care Nurse Name: Corina Solorio RN Position: [facility] AMB Nurse Member Role: Primary Care Nurse Name: Shawnee Lane RN Position: [facility] ED RN W/OE and Tasks Member Role: Primary Care Nurse Name: Erna Douglass RN Position: [facility] SN RN Member Role: Primary Care Nurse Name: Keyana Ndiaye RN Position: [facility] Ward Helper Member Role: Primary Care Nurse Name: Anabella Nicholson RN Position: [facility] AMB Nurse Member Role: Primary Care Nurse Name: Brenda Tomas RN Position: [facility] Outreach Member Role: Primary Care Nurse Name: Ramona Ybarra RN Position: [facility] RN Member Role: Primary Care Nurse Address: Address: [address] [place] [address] Name: Nancy Gallagher RN Position: [facility] Ward Helper Member Role: Primary Care Nurse Name: Evelyn Allen RN Position: [facility] OB RN Member Role: Primary Care Nurse Name: Jackelin Watt RN Position: [facility] RN Member Role: Primary Care Nurse Name: Raymundo Elizabeth RN Position: [facility] SN RN Member Role: Primary Care Nurse Name: Opal Calderon RN Position: [facility] RN Member Role: Primary Care Nurse Name: Yadiel Warner RN Position: [facility] SN RN Member Role: Primary Care Nurse Care Team Related Persons Name: BARTOLOME IBRAHIM Address: home [address] [place], [place] Name: GIANLUCA IBRAHIM Address: home [address] [place] [address] Name: ABBIE IBRAHIM Address: home [address] [place], [place] Name: SIM CERDA Name: DIANE CERDA Address: [address] [address] Name: SOLO CORRIGAN Address: home [address] [place] [address] Name: SOLO FLORES Address: home [address] [place], [place] Name: RAYMUNDO MAYFIELD Address: home [address] [place] [address]
--- OUTSIDE RECORDS SUMMARY | 2024-01-27 11:26 | XMS_ITS | Continuity of Care Document ---
Author Organization [facility] Address [address] [place] [address]- Care Team Providers Care Assortment Planner Name Role Phone Dsah WILCOX (ME), Paola Anderson Primary Care Physician En[facility] Date(s): 05/17/23 - 06/16/23 [facility] [address] [place] [address]- Allergies, Adverse Reactions, Alerts Substance Reaction Severity [...] Other : Medications (Vitamin D3) Cholecalciferol 400 CHCF units/mL oral syringe 1 mL = 10 [...] tablet, 3 Refills, Maintenance, 08/17/22 15:43:00 EST, [facility] #[id number], 170, cm, 05/13/22 17:18:00 EDT, Height, 88.8, [...] 01/08/21 13:59:00 EDT, Route to Pharmacy Electronically, [facility] #[id number], Partial fill upon patient request if the prescription is for a sched... Start Date: 01/08/21 Status: Ordered Flonase 50 mcg/inh nasal spray 2 sprays, Nares, Both, 2 times a day, PRN Congestion, # 16 Gm, 0 Refills, Maintenance, 08/20/20 11:17:00 EST, [place], [facility] #19550, Partial fill upon patient request if the prescriptionis for a schedule II opioid drug., 170, cm, ... Start Date: 08/20/20 Status: Ordered gabapentin 300 mg oral capsule See Instructions, 1 cap in the AM, 2 in the afternoon and 2 at bedtime, # 1 each, Refills 4, Tot. Refills 4, Maintenance, 11/11/22 15:13:00 EST, Instructions Replace Required Details, Route to Pharmacy Electronically, [facility] #[id number], Part... Start Date: 11/11/22 Status: Ordered Insulin [...] 05/14/23 20:59:00 EDT, Route to Pharmacy Electronically, [facility] #[id number], Partial fill upon patient request if the [...] 0 Refills, Maintenance, 05/13/23 10:33:00 EDT, Tablet, [facility] #60245, Partial fill upon patient request if the prescription is for a schedule II opioid drug., 1... Start Date: 05/13/23 Stop Date: 05/16/23 Status: Ordered prazosin 2 mg oral capsule 2 capsule = 4 mg, By Mouth, Daily at bedtime, if PO intake is low or BP low below 110/70 only take one cap, # 60 capsule, 4 Refills, Maintenance, 11/11/22 15:17:00 EST, [facility] #[id number], Partial fill upon patient request if the [...] 03/10/23 15:36:00 EDT, Route to Pharmacy Electronically, [facility] #[id number], Partial fill upon patient request if the [...] Refills, Soft Stop, 05/27/23 14:16:00 EDT, [place], [facility] #[id number], Partial fill upon patient... Start Date: 05/27/23 Status: Ordered spironolactone 25 mg oral tablet 25 mg, 1, tablet, By Mouth, Daily, # 30 tablet, Refills 3, Tot. Refills 3, Maintenance, 05/14/23 20:55:00 EDT, Route to Pharmacy Electronically, [facility] #[id number], Partial fill upon patientrequest if the prescription [...] Dash WILCOX (ME) , Paola Anderson Position: [facility] Outreach Member Role: PCP Address: Address: [address] [place] [phone] [place] Name: Daina Ibrahim RN Position: [facility] ED RN W/OE and Tasks Member Role: Primary Care Nurse Name: Madeline Baird RN Position: [facility] ED RN W/OE and Tasks Member Role: Primary Care Nurse Name: Teresa Carpio Position: S RN Member Role: Primary Care Nurse Name: Inge Elizabeth RN Position: [facility] RN Member Role: Primary Care Nurse Name: Kelley Prasad RN Position: [facility] RN Member Role: Primary Care Nurse Name: Cindy Medeiros RN Position: [facility] RN Member Role: Primary Care Nurse Name: Linnette De La O RN Position: [facility] TUBER MACHINE OPERATOR HELPER Member Role: Primary Care Nurse Name: Alina Castillo NP Position: [facility] Associate Professional Member Role: Primary Care Nurse Address: Address: [address] [facility] [place] [address]- [place] Name: Mary Anne Kilpatrick RN Position: [facility] MR W/ Merge Member Role: Primary Care Nurse Name: Nicole Hernández RN Position: [facility] RN Member Role: Primary Care Nurse Name: Lindsay Srinivasan CNM Position: [facility] Marketing Analytics Specialist Member Role: Primary Care Nurse Address: Address: [address] [place] [address] [place] [address]- Name: Larissa Olson [place] Position: [facility] RN Member Role: Primary Care Nurse Name: Karen Roa RN Position: [facility] ED RN W/OE and Tasks Member Role: Primary Care Nurse Name: Mary Alice Stevens RN Position: [facility] RN Member Role: Primary Care Nurse Name: Beverly Grey Position: [facility] RN Member Role: Primary Care Nurse Name: Alexy Geronimo RN Position: [facility] RN Member Role: Primary Care Nurse Name: Raúl Rudolph DO Position: [facility] SHIP FITTER MD Member Role: Lifetime SHIP FITTER Physician Address: Address: [address] [place] [address] [place] [address]- [place] Name: Evelyn Haynes RN Position: [facility] RN Member Role: Primary Care Nurse Name: Crissy Metzger RN Position: [facility] RN Member Role: Primary Care Nurse Name: Elisa Gilbert RN Position: [facility] RN Member Role: Primary Care Nurse Name: Corina Solorio RN Position: [facility] AMB Nurse Member Role: Primary Care Nurse Name: Shawnee Lane RN Position: [facility] ED RN W/OE and Tasks Member Role: Primary Care Nurse Name: Erna Douglass RN Position: [facility] SN RN Member Role: Primary Care Nurse Name: Keyana Ndiaye RN Position: [facility] Hotel Operations Manager Member Role: Primary Care Nurse Name: Anabella Nicholson RN Position: [facility] AMB Nurse Member Role: Primary Care Nurse Name: Brenda Tomas RN Position: [facility] Outreach Member Role: Primary Care Nurse Name: Ramona Ybarra RN Position: [facility] RN Member Role: Primary Care Nurse Address: Address: [address] [place] [address] Name: Nancy Gallagher RN Position: [facility] Hospital Hotel Operations Manager Member Role: Primary Care Nurse Name: Evelyn Allen RN Position: [facility] OB RN Member Role: Primary Care Nurse Name: Jackelin Watt RN Position: [facility] RN Member Role: Primary Care Nurse Name: Raymundo Elizabeth RN Position: [facility] SN RN Member Role: Primary Care Nurse Name: Opal Calderon RN Position: [facility] RN Member Role: Primary Care Nurse Name: Yadiel Warner RN Position: [facility] SN RN Member Role: Primary Care Nurse Care Team Related Persons Name: BARTOLOME IBRAHIM Address: [address] [place] [address] Name: GIANLUCA IBRAHIM Address: [address] [place] [address] Name: ABBIE IBRAHIM Address: [address] [place] [address] Name: SIM CERDA Name: DIANE CERDA Address: [address] [place] [address] Name: SOLO CORRIGAN Address: [address] [place] [address] Name: SOLO FLORES Address: [address] [place] [id number] Name: RAYMUNDO MAYFIELD Address: home [address] [place] [address]
--- OUTSIDE RECORDS SUMMARY | 2024-01-27 11:26 | XMS_ITS | Continuity of Care Document ---
Author Organization [facility] Address [address] [place] [address]- Care Team Providers Care Farmworker Dairy Name Role Phone Maranda WILCOX, Silvio Martinez Primary Care Physician Encounter [facility] Date(s): 12/26/20 - 03/13/21 [facility] [address] [place] [address]- Attending Physician: Hubert Roper MD Allergies, Adverse Reactions, Alerts Substance Reaction [...] tablet, 0 Refills, Maintenance, 12/26/20 12:55:00 EDT, [facility] #[id number], Partial fill upon patient request if the prescription is for a schedule II opioid drug., 170, cm,... Start Date: 12/26/20 Status: Ordered Potassium Chloride = 40 mEq, By Mouth, 2 times a day, 0 Refills, Maintenance, 01/20/21 5:39:00 EDT, Partial fill upon patient request if the prescription is for a schedule II opioid drug. Start Date: 01/20/21 Status: Ordered Potassium Chloride (Avj-Zrlu-Hwb M20) 20 mEq oral tablet, extended release 1 tablet = 20 mEq, By Mouth, 2 times a day, # 10 tablet, 0 Refills, Maintenance, 01/20/21 7:48:00 EDT, [facility] #[id number], Partial fill upon patient request if the [...] Refills, Soft Stop, 10/02/20 11:57:00 EST, Pow[place], [facility] #[id number], Partial fill upon patient... Start Date: 10/02/20 [...] 0 Refills, Maintenance, 01/20/21 7:49:00 EDT, Tablet, [facility] #70554, Partial fill upon patient request if the [...]
--- OUTSIDE RECORDS SUMMARY | 2024-01-27 11:26 | XMS_ITS | Continuity of Care Document ---
Author Organization [facility] Address [address] [place] [address]- Care Team Providers Care Biztalk Software Developer Name Role Phone Agustín Faria MD Primary Care Physician [id number] Date(s): 09/19/19 - 11/09/19 [facility] [place] [address] [place] [address]- [facility] Attending Physician: Mariella OCAMPO, Amelia Admitting Physician: Mariella OCAMPO, Amelia Allergies, Adverse Reactions, [...] Stop 02/18/20 11:16:00EDT, 10/21/19 11:16:00 EST, Tablet, [facility] #[id number], 170, cm, 10/20/19 13:48:00 EST, Height, 92.3, kg, 10/15/19 6:38:00 EST, Dry Weight Start Date: 10/21/19 Stop Date: 02/18/20 Status: Ordered atorvastatin 20 mg oral tablet 1 tablet = 20 mg, By Mouth, Daily, # 90 tablet, 1 Refills, Maintenance, 10/21/19 11:16:00 EST, Tablet, [facility] #[id number], 170, cm, 10/20/19 13:48:00 EST, Height, 92.3, [...] 02/21/19 8:58:39 EDT, Route to Pharmacy Electronically, [id number], [facility] 3 Start Date: 02/21/19 Stop Date: 04/22/19 Status: Ordered Creon 36,000 units oral delayed release capsule 1 capsule, By Mouth, 3 times a day, with each meal and snack, # 270 capsule, 1 Refills, Maintenance, 10/21/19 11:17:00 EST, [facility] #[id number], 1 capsule By Mouth 3 times a [...] 08/24/19 9:15:39 EST, Route to Pharmacy Electronically, [id number], [facility] #[id number], 170, cm, 08/24/19 8:38:44 EST, H... Start [...] 0 Refills, Maintenance, 09/28/19 0:43:00 EST, Tablet, [facility] #72667, 171, cm, 09/27/19 22:45:00 EST, Height, 92.2, [...] 0 Refills, Soft Stop, 09/28/19 0:51:00 EST, [facility] #46131, 171, cm, 09/27/19 22:45:00 EST, Height, 92.2, [...] 02/21/19 8:59:46 EDT, Route to Pharmacy Electronically, [id number], [facility] 3 Start Date: 02/21/19 Stop Date: 09/19/19 [...]
--- OUTSIDE RECORDS SUMMARY | 2024-01-27 11:26 | XMS_ITS | Continuity of Care Document ---
Author Organization [facility] al Address [address] [place] [address]- Care Team Providers Care Cage Operator Name Role Phone Agustín Faria MD Primary Care Physician Encounter [facility] Date(s): 07/08/21 - 07/09/[address] [address]- Encounter Diagnosis Kidney stone(Final) - 07/09/21 Discharge Disposition: Transferred to short-term general hospit Attending Physician: Kenneth Baker DO Admitting Physician: Kenneth Bkaer DO Referring Physician: Not on Staff, Referring [...] opioid drug. Start Date: 12/30/20 Status: Ordered Dilaudid Inj 1 mg, Injection, IV Push Slowly, Every 15 minutes for 3 doses/times, PRN for Pain , Moderate, and SBP greater than 100, STAT, 07/09/21 1:27:00 EDT, Stop date Limited # of times Start Date: 07/09/21 Stop Date: 07/09/21 Status: Discontinued Insulin Syringe, BD Ultra-Fine 1 [...] tablet, 0 Refills, Maintenance, 12/26/20 12:55:00 EDT, [facility] #[id number], Partial fill upon patient request if the [...] opioid drug. Start Date: 12/29/20 Status: Ordered Toradol Inj 15 mg, Injection, IV Push Slowly, Once, STAT, 07/09/21 2:50:00 EDT, Stop date 07/09/21 2:50:00 EDT Start Date: 07/09/21 Stop Date: 07/09/21 Status: Completed Zofran 4 mg oral tablet 1 tablet = 4 mg, By Mouth, Every 8 hours, PRN Nausea & Vomiting, # 10 tablet, 0 Refills, Maintenance, 01/20/21 7:49:00 EDT, Tablet, [facility] #[id number], Partial fill upon patient request if the [...] Exam Date Time Procedure Performing Provider Status 07/09/21 12:16 AM Chest 2 Views Frontal and Lat Kiera Henderson; Auth (Verified) Notes: (Chest 2 Views Frontal and Lat) Reason For Exam: Shortness of Breath, Fever;Other: RESULT: Chest 2 Views Frontal and Lat Chest 2 Views Frontal and Lat Hx of Present Illness: Left flank pain x 2 weeks; intermittent at first and worsening now. +N V D. Febrile. Last took 800mg ibuprofen at 1800 and 1,000mg tylenol at 1900. Headache. Did not receive COVID vaccine. Denies cough. ST x 3 weeks.; Reason: Other:; Shortness of Breath, Fever; Clinical Question(s): Pneumonia COMPARISON: Multiple priors, most recent dated 10/30/2020. FINDINGS: LINES AND TUBES: Dual-lead left subclavian pacer/AICD wires are intact. LUNGS AND PLEURA: Clear lungs. Normal pulmonary vascularity. No pleural effusion. No pneumothorax. HEART, MEDIASTINUM AND DAGOBERTO: Heart is normal in size. Normal upper mediastinal and hilar contour. BONES AND SOFT TISSUES: No acute abnormality. Cholecystectomy clips. IMPRESSION: No acute abnormality. WSN: [id number] Ordering Physician: Kenneth Baker Dictated By: Petros Rivera MD Dictated Date/Time: 07/09/21 8:22 am Reviewed By: Petros Rivera MD Signed By: Petros Rivera MD Signed Date/Time: 07/09/21 8:22 am Transcribed By: DIANE Transcribed Date/Time: 07/09/21 8:17 am Vital Signs Most recent to oldest [Reference Range]: 1 2 3 Height 170 cm (07/09/21 3:53 AM) 170 cm (07/09/21 1:07 AM) 170 cm (07/08/21 9:06 PM) Weight 76.5 kg (07/09/21 3:53 AM) 76.5 kg (07/09/21 1:07 AM) 76.5 kg (07/08/21 9:06 PM) Oxygen Saturation [94-100 %] 98 % (07/09/21 3:53 AM) 100 % (07/09/21 1:07 AM) 100 % (07/08/21 9:06 PM) Pulse Rate [55-90 bpm] 62 bpm (07/09/21 3:53 AM) 91 bpm *H* (07/09/21 1:07 AM) 105 bpm *H* (07/08/21 9:06 PM) Body Mass Index [18.5-24.99] 26.47 *H* (07/09/21 3:53 AM) 26.47 *H* (07/09/21 1:07 AM) Blood Pressure [90-138/55-84 mm Hg] 93/58mm Hg (07/09/21 3:53 AM) 109/69mm Hg (07/09/21 1:07 AM) 148/91mm Hg *H* (07/08/21 9:06 PM) Respiratory Rate [16-30 br/min] 16 br/min (07/09/21 3:53 AM) 16 br/min (07/09/21 3:30 AM) 20 br/min (07/09/21 2:12 AM) Temperature [96.8-100.4 DegF] 98.5 DegF (07/09/21 3:53 AM) 102.9 DegF *H* (07/09/21 1:07 AM) 101.8 DegF *H* (07/08/21 9:06 PM) Mode of Delivery (Oxygen) Room air (07/09/21 3:53 AM) Room air (07/09/21 1:07 AM) Room air (07/08/21 9:06 PM) Blood pressure sites Arm, right (07/09/21 3:53 AM) Arm, left (07/08/21 9:06 PM) Temperature Route Oral (07/09/21 3:53 AM) Oral (07/09/21 1:07 AM) Oral (07/08/21 9:06 PM) Dry Weight 76.5 kg (07/09/21 3:53 AM) 76.5 kg (07/09/21 1:07 AM) 76.5 kg (07/08/21 9:06 PM) Weight Obtained Via Standing scale (07/08/21 9:06 PM) Dry Weight Obtained Via Standing scale (07/08/21 9:06 PM) Social History Social History Type Response Smoking Status Current every day rowan munoz; Previous treatment: Counseling; Previous treatment: Nicotine replacement; Other: 1/2 ppd x 20 yrs; entered on: 09/16/16 Sex Medical Equipment Implanted Date:07/09/21Target Site:[place] Description Quantity MRI Company Model STENT STRETCH VL 6FR - BSCI (243-143) 1 [employer] Unknown GO:No Information Assigning Authority: FDA
--- OUTSIDE RECORDS SUMMARY | 2024-01-27 11:26 | XMS_ITS | Continuity of Care Document ---
Author Organization [facility] Address [address] [place] [address]- Care Team Providers Care Gas Pumping Station Operator Name Role Phone Agustín Faria MD Primary Care Physician Encounter [facility] Date(s): 10/29/21 - 12/04/[address] [address] [phone] Attending Physician: Eneida OCAMPO, Bambi Admitting Physician: Eneida OCAMPO, Bambi Referring Physician: Eneida VENTILATOR SPECIALIST, Bambi Allergies, Adverse Reactions, Alerts Substance Reaction Severity [...] 0 Refills, Maintenance, 07/15/21 10:36:00 EDT, Tablet, [facility], Partial fill upon patient request if [...] tablet, 0 Refills, Maintenance, 12/26/20 12:55:00 EDT, [facility] #[id number], Partial fill upon patient request if the [...] Refills, Soft Stop, 10/27/21 14:15:00 EST, Powder, [facility] #[id number], Partial fill upon patient... Start Date: 10/27/21 Status: Ordered Zofran 4 mg oral tablet 1 tablet = 4 mg, By Mouth, Every 8 hours, PRN Nausea & Vomiting, # 10 tablet, 0 Refills, Maintenance, 01/20/21 7:49:00 EDT, Tablet, [facility] #[id number], Partial fill upon patient request if the [...] Model STENT STRETCH VL 6FR - BSCI (547-903) 1 [employer] Unknown GO:No Information Assigning Authority: FDA
--- OUTSIDE RECORDS SUMMARY | 2024-01-27 11:26 | XMS_ITS | Continuity of Care Document ---
Author Organization [facility] Address [address] [place] [address]- Care Team Providers Care Criminalist Technician Name Role Phone Maranda WILOCX, Silvio Martinez Primary Care Physician Encounter [facility] Date(s): 03/21/21 - 04/20/21 [facility] [address] [place] [address]- Allergies, Adverse Reactions, Alerts Substance Reaction Severity [...] tablet, 0 Refills, Maintenance, 12/26/20 12:55:00 EDT, [facility] #[id number], Partial fill upon patient request if the prescription is for a schedule II opioid drug., 170, cm,... Start Date: 12/26/20 Status: Ordered Potassium Chloride = 40 mEq, By Mouth, 2 times a day, 0 Refills, Maintenance, 01/20/21 5:39:00 EDT, Partial fill upon patient request if the prescription is for a schedule II opioid drug. Start Date: 01/20/21 Status: Ordered Potassium Chloride (Ryq-Kmzl-Yun M20) 20 mEq oral tablet, extended release 1 tablet = 20 mEq, By Mouth, 2 times a day, # 10 tablet, 0 Refills, Maintenance, 01/20/21 7:48:00 EDT, [facility] #[id number], Partial fill upon patient request if the [...] 0 Refills, Maintenance, 01/20/21 7:49:00 EDT, Tablet, [facility] #[id number], Partial fill upon patient request if the [...]
--- OUTSIDE RECORDS SUMMARY | 2024-01-27 11:26 | XMS_ITS | Continuity of Care Document ---
Author Organization [facility] Address [address] [place] [address]- Care Team Providers Care Games Dealer Name Role Phone Maranda WILCOX, Silvio Martinez Primary Care Physician Encounter [facility] Date(s): 09/18/20 - 10/18/20 [facility] [address] [place] [address]- Allergies, Adverse Reactions, Alerts Substance Reaction Severity [...] capsule, 1 Refills, Maintenance, 10/21/19 11:17:00 EST, [facility] #[id number], 1 capsule By Mouth 3 times a [...] 04/09/21 14:58:00 EDT, 04/09/20 14:57:00 EDT, Tablet, [facility] #[id number], 169, cm, 04/05/20 12:55:00 EDT, Height, 85, [...] 0 Refills, Maintenance, 10/08/20 10:19:00 EST, Tablet, [facility] #[id number], 170, cm, 10/04/20 19:07:00 EST, Height, 91, kg, 0... Start Date: 10/08/20 Stop Date: 11/07/20 Status: Ordered KlonoPIN 1 mg oral tablet 2.5 tablet = 2.5 mg, By Mouth, Daily at bedtime, 0.5 mg TID 1 mg at hs, # 75 tablet, 3 Refills, Maintenance, 05/28/20 11:56:00 EDT, [facility] #[id number], 170, cm, 05/27/20 0:11:00 EDT, Height,90.4, kg, [...] 3 Refills, Maintenance, 10/16/20 16:21:00 EST, Tablet, [facility] #[id number], Partial fill upon patient request if the [...] 0 Refills, Maintenance, 06/18/20 16:48:00 EDT, Tablet, [facility] #[id number], 170, cm, 06/18/20 15:14:00 EDT, Height, 90.4, [...] Refills, Soft Stop, 10/02/20 11:57:00 EST, Powder, [facility] #[id number], Partial fill upon patient... Start Date: 10/02/20 [...]
--- OUTSIDE RECORDS SUMMARY | 2024-01-27 11:26 | XMS_ITS | Continuity of Care Document ---
Author Organization [facility] [place] Address [address] [place] [address]- Care Team Providers Care High School Science Teacher Name Role Phone Agustín Faria MD Primary Care Physician [phone] Encounter [facility] Date(s): 10/10/19 - 10/20/19 [facility] [place] [address] [place] [address]- [facility] Attending Physician: Mxaimo Cano Admitting Physician: AdmtrMaximo Referring Physician: Admtr, ArRajendra Allergies, Adverse Reactions, Alerts Substance Reaction [...] 02/21/19 8:58:39 EDT, Route to Pharmacy Electronically, [id number], [facility] Start Date: 02/21/19 Stop Date: [...] 08/24/19 9:15:39 EST, Route to Pharmacy Electronically, [id number], [facility] #[id number], 170, cm, 08/24/19 8:38:44 EST, H... Start [...] 0 Refills, Maintenance, 09/28/19 0:43:00 EST, Tablet, [facility] #[id number], 171, cm, 09/27/19 22:45:00 EST, Height, 92.2, [...] 0 Refills, Soft Stop, 09/28/19 0:51:00 EST, [facility] #[id number], 171, cm, 09/27/19 22:45:00 EST, Height, 92.2, [...] 02/21/19 8:59:46 EDT, Route to Pharmacy Electronically, [id number], [facility] Start Date: 02/21/19 Stop Date: [...]
--- OUTSIDE RECORDS SUMMARY | 2024-01-27 11:26 | XMS_ITS | Continuity of Care Document ---
Author Organization [facility] Address [address] [place] [address]- Care Team Providers Care International Bank Manager Name Role Phone Silvio Low MD Primary Care Physician Encounter [facility] Date(s): 11/07/20 - 12/20/20 [facility] [address] [place] [address]- Attending Physician: Silvio Low MD Allergies, Adverse Reactions, [...] capsule, 1 Refills, Maintenance, 10/21/19 11:17:00 EST, [facility] #[id number], 1 capsule By Mouth 3 times a [...] 04/09/21 14:58:00 EDT, 04/09/20 14:57:00 EDT, Tablet, [facility] #[id number], 169, cm, 04/05/20 12:55:00 EDT, Height, 85, [...] 3 Refills, Maintenance, 10/16/20 16:21:00 EST, Tablet, [facility] #[id number], Partial fill upon patient request if the prescription is for a schedul... Start Date: 10/16/20 Stop Date: 02/13/21 Status: Ordered ondansetron 4 mg oral tablet 1 tablet = 4 mg, By Mouth, Every 8 hours, PRN Nausea & Vomiting, # 20 tablet, 0 Refills, Maintenance, 06/18/20 16:48:00 EDT, Tablet, [facility] #[id number], 170, cm, 06/18/20 15:14:00 EDT, Height, 90.4, kg, 06/18/20 15:14:00 EDT, Dry Weight Start Date: 06/18/20 Stop Date: 06/25/20 Status: Ordered ondansetron 8 mg oral tablet, disintegrating 1 tablet = 8 mg, By Mouth, 3 times a day, # 10 tablet, 0 Refills, Maintenance, 10/30/20 17:44:00 EST, [facility] #[id number], Partial fill upon patient request if the [...] Refills, Soft Stop, 10/02/20 11:57:00 EST, Powder, [facility] #[id number], Partial fill upon patient... Start Date: 10/02/20 [...]
--- OUTSIDE RECORDS SUMMARY | 2024-01-27 11:26 | XMS_ITS | Continuity of Care Document ---
Author Organization [facility] ter Address [address] [place] [address]- Care Team Providers Care Superintendent Stevedoring Name Role Phone Dash WILCOX (NM), Paola Anderson Primary Care Physician [place] [facility] [place]s): 05/31/23 - 07/10/[address] [address] Attending Physician: Manda Cheng MD Admitting Physician: Manda Cheng MD Referring Physician: Manda Cheng MD Allergies, Adverse Reactions, Alerts Substance Reaction Severity Status propranolol Rash Active droperidol-fentanyl 1 Active Xarelto rash Active Lexapro n/v Active [...] Other : Medications (Vitamin D3) Cholecalciferol 400 HALF-WAY units/mL oral syringe 1 mL = 10 [...] tablet, 3 Refills, Maintenance, 08/17/22 15:43:00 EST, [facility] #[id number], 170, cm, 05/13/22 17:18:00 EDT, Height, 88.8, [...] 01/08/21 13:59:00 EDT, Route to Pharmacy Electronically, [facility] #[id number], Partial fill upon patient request if the prescription is for a sched... Start Date: 01/08/21 Status: Ordered Flonase 50 mcg/inh nasal spray 2 sprays, Nares, Both, 2 times a day, PRN Congestion, # 16 Gm, 0 Refills, Maintenance, 08/20/20 11:17:00 EST, [place], [facility] #45659, Partial fill upon patient request if the prescriptionis for a schedule II opioid drug., 170, cm, ... Start Date: 08/20/20 Status: Ordered gabapentin 300 mg oral capsule See Instructions, 1 cap in the AM, 2 in the afternoon and 2 at bedtime, # 1 each, Refills 4, Tot. Refills 4, Maintenance, 11/11/22 15:13:00 EST, Instructions Replace Required Details, Route to Pharmacy Electronically, [facility] #[id number], Part... Start Date: 11/11/22 Status: Ordered Insulin [...] 05/14/23 20:59:00 EDT, Route to Pharmacy Electronically, [facility] #[id number], Partial fill upon patient request if the [...] 0 Refills, Maintenance, 05/13/23 10:33:00 EDT, Tablet, [facility] #[id number], Partial fill upon patient request if the prescription is for a schedule II opioid drug., 1... Start Date: 05/13/23 Stop Date: 05/16/23 Status: Ordered prazosin 2 mg oral capsule 2 capsule = 4 mg, By Mouth, Daily at bedtime, if PO intake is low or BP low below 110/70 only take one cap, # 60 capsule, 4 Refills, Maintenance, 11/11/22 15:17:00 EST, [facility] #[id number], Partial fill upon patient request if the [...] 03/10/23 15:36:00 EDT, Route to Pharmacy Electronically, [facility] #[id number], Partial fill upon patient request if the [...] Refills, Soft Stop, 05/27/23 14:16:00 EDT, Powder, [facility] #[id number], Partial fill upon patient... Start Date: 05/27/23 Status: Ordered spironolactone 25 mg oral tablet 25 mg, 1, tablet, By Mouth, Daily, # 30 tablet, Refills 3, Tot. Refills 3, Maintenance, 05/14/23 20:55:00 EDT, [id number], Partial fill upon patientrequest if the prescription [...] Unknown 07/09/21 Unknown Unknown Active Un known Note * Event Display: Infusion History and Physical Authored Date: * Event Display: Infusion History and Physical Authored Date: * Event Display: Infusion History and Physical Authored Date: * Event Display: Infusion History and Physical Authored Date: Patient Care team information Care Team Personnel Name: Dash WILCOX (NM) , Paola Anderson Position: [facility] Outreach Member Role: PCP Address: Address: [address] [place] [address] [place] Name: Daina Ibrahim RN Position: [facility] ED RN W/OE and Tasks Member Role: Primary Care Nurse Name: Madeline Baird RN Position: [facility] ED RN W/OE and Tasks Member Role: Primary Care Nurse Name: Teresa Carpio Position: [facility] RN Member Role: Primary Care Nurse Name: Inge Elizabeth RN Position: [facility] SN RN Member Role: Primary Care Nurse Name: Kelley Prasad RN Position: [facility] RN Member Role: Primary Care Nurse Name: Cindy Medeiros RN Position: [facility] RN Member Role: Primary Care Nurse Name: Linnette De La O RN Position: [facility] GLASS MOULD CLEANER Member Role: Primary Care Nurse Name: Alina Castillo NP Position: [facility] Associate Professional Member Role: Primary Care Nurse Address: Address: [address] [place] [address]- [place] Name: Mary Anne Kilpatrick RN Position: [facility] MR W/ Merge Member Role: Primary Care Nurse Name: Nicole Hernández RN Position: [facility] RN Member Role: Primary Care Nurse Name: Lindsay Srinivasan CNM Position: [facility] Car Rental Manager Member Role: Primary Care Nurse Address: Address: [address] [place] [address] [place] [address]- [place] Name: Larissa Olson [place] Position: [facility] RN Member Role: Primary Care Nurse Name: Karen Roa RN Position: [facility] ED RN W/OE and Tasks Member Role: Primary Care Nurse Name: Mary Alice Stevens RN Position: [facility] RN Member Role: Primary Care Nurse Name: Beverly Grey Position: [facility] RN Member Role: Primary Care Nurse Name: Alexy Geronimo RN Position: [facility] RN Member Role: Primary Care Nurse Name: Raúl Rudolph DO Position: [facility] SEED CLEANING MANAGER MD Member Role: Lifetime SEED CLEANING MANAGER Physician Address: Address: [address] [facility] [place] [address]- [place] Name: Evelyn Haynes RN Position: [facility] RN Member Role: Primary Care Nurse Name: Crissy Metzger RN Position: [facility] RN Member Role: Primary Care Nurse Name: Elisa Gilbert RN Position: [facility] RN Member Role: Primary Care Nurse Name: Corina Solorio RN Position: [facility] AMB Nurse Member Role: Primary Care Nurse Name: Shawnee Lane RN Position: [facility] ED RN W/OE and Tasks Member Role: Primary Care Nurse Name: Erna Douglass RN Position: [facility] SN RN Member Role: Primary Care Nurse Name: eKyana Ndiaye RN Position: [facility] [employer] Teacher Member Role: Primary Care Nurse Name: Anabella Nicholson RN Position: [facility] AMB Nurse Member Role: Primary Care Nurse Name: Brenda Tomas RN Position: [facility] Outreach Member Role: Primary Care Nurse Name: Ramona Ybarra RN Position: [facility] RN Member Role: Primary Care Nurse Address: Address: [address] [place] [id number] Name: Nancy Gallagher RN Position: [facility] Teacher Member Role: Primary Care Nurse Name: Evelyn Allen RN Position: [facility] OB RN Member Role: Primary Care Nurse Name: Jackelin Watt RN Position: [facility] RN Member Role: Primary Care Nurse Name: Raymundo Elizabeth RN Position: [facility] SN RN Member Role: Primary Care Nurse Name: Opal Calderon RN Position: [facility] RN Member Role: Primary Care Nurse Name: Yadiel Warner RN Position: [facility] SN RN Member Role: Primary Care Nurse Care Team Related Persons Name: BARTOLOME IBRAHIM Address: home [address] [place], [place] Name: GIANLUCA IBRAHIM Address: [address] [place], [place] Name: ABBIE IBRAHIM Address: [address] [place] [address] Name: SIM CERDA Name: DIANE CERDA Address: home [address] [place] [address] Name: SOLO CORRIGAN Address: [address] [place], [place] Name: SOLO FLORES Address: [address] [place], [place] Name: RAYMUNDO MAYFIELD Address: home [address] [place] [address]
--- OUTSIDE RECORDS SUMMARY | 2024-01-27 11:26 | XMS_ITS | Continuity of Care Document ---
Author Organization [facility] Address [address] [place] [address]- Care Team Providers Care Tip Banding Machine Operator Name Role Phone Maranda WILCOX, Silvio Martinez Primary Care Physician Encounter [facility] Date(s): 11/06/20 - 12/06/20 [facility] [address] [place] [address]- Allergies, Adverse Reactions, Alerts Substance Reaction Severity [...] capsule, 1 Refills, Maintenance, 10/21/19 11:17:00 EST, [facility] #[id number], 1 capsule By Mouth 3 times a [...] 04/09/21 14:58:00 EDT, 04/09/20 14:57:00 EDT, Tablet, [facility] #[id number], 169, cm, 04/05/20 12:55:00 EDT, Height, 85, [...] 3 Refills, Maintenance, 10/16/20 16:21:00 EST, Tablet, [facility] #[id number], Partial fill upon patient request if the prescription is for a schedul... Start Date: 10/16/20 Stop Date: 02/13/21 Status: Ordered ondansetron 4 mg oral tablet 1 tablet = 4 mg, By Mouth, Every 8 hours, PRN Nausea & Vomiting, # 20 tablet, 0 Refills, Maintenance, 06/18/20 16:48:00 EDT, Tablet, [facility] #[id number], 170, cm, 06/18/20 15:14:00 EDT, Height, 90.4, kg, 06/18/20 15:14:00 EDT, Dry Weight Start Date: 06/18/20 Stop Date: 06/25/20 Status: Ordered ondansetron 8 mg oral tablet, disintegrating 1 tablet = 8 mg, By Mouth, 3 times a day, # 10 tablet, 0 Refills, Maintenance, 10/30/20 17:44:00 EST, [facility] #[id number], Partial fill upon patient request if the [...] Refills, Soft Stop, 10/02/20 11:57:00 EST, Powder, [facility] #[id number], Partial fill upon patient... Start Date: 10/02/20 [...]
--- OUTSIDE RECORDS SUMMARY | 2024-01-27 11:27 | XMS_ITS | Continuity of Care Document ---
Author Organization [facility] Address [address] [place] [id number]- Care Team Providers Care Desktop Operator Name Role Phone Agustín Faria MD Primary Care Physician Encounter [facility] Date(s): 10/28/22 - 12/26/22 [facility] [address] [place] [id number]- Encounter Diagnosis Insufficiency, adrenal(Discharge Diagnosis) - 11/25/22 Attending Physician: Manda Tomas MD Admitting Physician: Manda Tomas MD Referring Physician: Agustín Faria MD Allergies, Adverse [...] Date: 04/20/22 Stop Date: 08/18/22 Status: Ordered Aspirin Low Dose 81 mg oral delayed release tablet 1 tablet, By Mouth, Daily, # 30 tablet, 3 Refills, Maintenance, 08/17/22 15:43:00 EST, [facility] #[id number], 170, cm, 05/13/22 17:18:00 EDT, Height, 88.8, kg, 05/13/22 17:18:00 EDT, Dry Weight Start Date: 08/17/22 Status: Ordered Banophen 25 mg oral tablet [...] 1 tablet = 150 mg, By Mouth, 2 times a day, # 60 tablet, 4 Refills, Maintenance, 11/11/22 15:10:00 EST, [facility] #[id number], Partial fill upon patient request if the prescription is for a schedule II opioid drug., 170, cm, 05/13/22 17:18:00 ED... Start Date: 11/11/22 Stop Date: 04/10/23 Status: Ordered busPIRone 15 mg oral tablet 1 tablet = 15 mg, By Mouth, 2 times a day, # 60 tablet, 4 Refills, Maintenance, 11/11/22 15:11:00 EST, Tablet, [facility] #[id number], Partial fill upon patient request if the prescription is for a schedule II opioid drug., 170, cm, 05/13/22 17:1... Start Date: 11/11/22 Stop Date: 04/10/23 Status: Ordered famotidine 20 mg oral tablet 20 mg, 1, tablet, By Mouth, 2 times a day, # 180 tablet, Refills 0, Tot. Refills 0, Maintenance, 01/08/21 13:59:00 EDT, Route to Pharmacy Electronically, [facility] #[id number], Partial fill upon patient request if the prescription is for a sched... Start Date: 01/08/21 Status: Ordered Flonase 50 mcg/inh nasal spray 2 sprays, Nares, Both, 2 times a day, PRN Congestion, # 16 Gm, 0 Refills, Maintenance, 08/20/20 11:17:00 EST, [place], [facility] #[id number], Partial fill upon patient request if the prescriptionis for a schedule II opioid drug., 170, cm, ... Start Date: 08/20/20 Status: Ordered gabapentin 300 mg oral capsule 300 mg, 1, capsule, By Mouth, 2 times a day, # 60 capsule, Refills 4, Tot. Refills 4, Maintenance, 11/11/22 15:13:00 EST, Route to Pharmacy Electronically, [facility] #[id number], Partial fill upon patient request if the [...] 09/25/22 15:38:00 EST, Route to Pharmacy Electronically, [facility] #[id number], Partial fill upon patient request if the prescription is for a sched... Start Date: 09/25/22 Stop Date: 09/20/23 Status: Ordered KlonoPIN 1 mg oral tablet 1 tablet = 1 mg, By Mouth, 2 times a day, dose is BID, # 60 tablet, 4 Refills, Maintenance, 11/11/22 15:11:00 EST, [facility] #[id number], NO EARLY REFILLS, 170, cm, 05/13/22 17:18:00 EDT, Height, 88.8, kg, 05/13/22 17:18:00 EDT, Dry Weight Start Date: 11/11/22 Stop Date: 04/10/23 Status: [...] 3 Refills, Maintenance, 09/13/22 16:21:00 EST, Tablet, [facility] #[id number], Partial fill upon patient request if the prescription is for a schedule II opioid dr... Start Date: 09/13/22 Stop Date: 09/08/23 Status: Ordered nitroglycerin 0.4 mg sublingual tablet 1 tablet, Sublingual, Every 5 minutes, PRN NEEDED FOR CHEST PAIN MAX 3 DOSES IN 15 MINUTES IF PAIN PERSISTS CALL 911, # 100 tablet, 3 Refills, Maintenance, 12/21/22 11:43:00 EDT, [facility] #[id number], 170, cm, 05/13/22 17:18:00 EDT, Height,... Start Date: 12/21/22 Status: Ordered ondansetron 8 mg oral tablet, disintegrating 1 tablet = 8 mg, By Mouth, 3 times a day, PRN Nausea & Vomiting, # 30 tablet, 0 Refills, Maintenance, 12/26/20 12:55:00 EDT, [facility] #[id number], Partial fill upon patient request if the prescription is for a schedule II opioid drug., 170, cm,... Start Date: 12/26/20 Status: Ordered oxyCODONE 10 mg oral tablet = 10 mg, By Mouth, Every 8 hours, as needed; on a 15/month taper, # 60 tablet, 0 Refills, Maintenance, 03/24/21 11:54:00 EDT, Tablet, [facility] #[id number], Partial fill upon patient request ifthe prescription [...] capsule, 4 Refills, Maintenance, 11/11/22 15:17:00 EST, [facility] #[id number], Partial fill upon patient request if the [...] Refills 4, Tot. Refills 4, Maintenance, 11/11/22 15:08:00 EST, Route to Pharmacy Electronically, [facility] #[id number], Partial fill upon patient request if the prescription is for a schedule II... Start Date: 11/11/22 Stop Date: 04/10/23 Status: Ordered Senna = 8.5 mg, By Mouth, 2 times a day, 0 Refills, Maintenance, 11/06/16 11:22:55 Start Date: 11/06/16 Status: Ordered Solu-CORTEF Act-O-Vial 100 mg injection See Instructions, use daily SQ for adrenal insufficiency. 14 mg qam and 7 mg qpm please provide extra 2 mg vial for stress dosing., # 8 each, 11 Refills, Soft Stop, 04/20/22 10:54:00 EDT, Powder, [facility] #[id number], Partial fill upon patient... Start Date: 04/20/22 Status: Ordered spironolactone 25 mg oral tablet 25 mg, 1, tablet, By Mouth, Daily, # 90 tablet, Refills 3, Tot. Refills 3, Maintenance, 09/13/22 16:11:00 EST, Route to Pharmacy Electronically, [facility] #[id number], Partial fill upon patientrequest if the prescription is for a schedule II op... Start Date: 09/13/22 Stop Date: 09/08/23 Status: Ordered traZODone 150 mg oral tablet 2 tablet = 300 mg, By Mouth, Daily at bedtime, Ins will not cover 300mg, # 60 tablet, 4 Refills, Maintenance, 11/27/22 9:29:00 EST, Tablet, [facility] #[id number], Partial fill upon patient request if the prescription is for a schedule II opioid... Start Date: 11/27/22 Status: Ordered traZODone 300 mg oral tablet 1 tablet = 300 mg, By Mouth, Daily at bedtime, # 30 tablet, 4 Refills, Maintenance, 11/11/22 15:09:00 [facility], [facility] #[id number], Partial fill upon patient request if the prescription is for a schedule II opioid drug., 170, cm, 05/13/22 17:18:00... Start Date: 11/11/22 Stop Date: 04/10/23 Status: Ordered Wheelchair See Instructions, # 1 each, Maintenance, right ankle fracture left ankle sprain, 01/06/22 16:36:00 EDT, Supply Start Date: 01/06/22 Status: Ordered Problem List Condition Confirmation Course [...] thromboembolism), chronic Confirmed Active 1MRI compatible 2IAROGENIC Diagnosis Diagnosis Type Effective Dates Health Status Cl inical Service Informant Insufficiency, adrenal Discharge Diagnosis 11/25/22 Social History Social History Type Response Smoking [...] Team Personnel Name: Daina Ibrahim RN Position: [facility] ED RN W/OE and Tasks Member Role: Primary Care Nurse Name: Madeline Baird RN Position: [facility] ED RN W/OE and Tasks Member Role: Primary Care Nurse Name: Teresa Carpio Position: [facility] RN Member Role: Primary Care Nurse Name: nIge Elizabeth RN Position: [facility] SN RN Member Role: Primary Care Nurse Name: Kelley Prasad RN Position: [facility] RN Member Role: Primary Care Nurse Name: Cindy Medeiros RN Position: [facility] RN Member Role: Primary Care Nurse Name: Linnette De La O RN Position: [facility] ACCOUNTING TECHNICIAN No Tools Member Role: Primary Care Nurse Name: Anna CAFE TEAM MEMBERAlina Position: [facility] Associate Professional Member Role: Primary Care Nurse Address: Address: [address] [place] [address]- Name: Mary Anne Kilpatrick RN Position: [facility] MR W/ Merge Member Role: Primary Care Nurse Name: Agustín Faria MD Position: [facility] Outreach Member Role: PCP Address: Address: [address] [place] [address] [address] [place] [address]- Name: Nicole Hernández RN Position: [facility] RN Member Role: Primary Care Nurse Name: Douglas Harris Position: [facility] Cardio/Pulm Mgr ([facility]) Member Role: Primary Care Nurse Name: Lindsay Srinivasan CNM Position: [facility] Specialist Physicians Member Role: Primary Care Nurse Address: Address: [address] [place], [place] [address]y [place] [address]- Name: Larissa Klein Position: [facility] RN Member Role: Primary Care Nurse Name: Karen Roa RN Position: [facility] ED RN W/OE and Tasks Member Role: Primary Care Nurse Name: Mary Alice Stevens RN Position: [facility] RN Member Role: Primary Care Nurse Name: Beverly Grey Position: [facility] RN Member Role: Primary Care Nurse Name: Alexy Geronimo RN Position: [facility] RN Member Role: Primary Care Nurse Name: Raúl Rudolph DO Position: [facility] LIVESTOCK NUTRITION TERRITORY MANAGER MD Member Role: Lifetime LIVESTOCK NUTRITION TERRITORY MANAGER Physician Address: Address: [address] [place] [address] Lens Examiner [place], [place] - [place] Name: Evelyn Haynes RN Position: [facility] RN Member Role: Primary Care Nurse Name: Crissy Metzger RN Position: [facility] RN Member Role: Primary Care Nurse Name: Elisa Gilbert RN Position: [facility] RN Member Role: Primary Care Nurse Name: Corina Solorio RN Position: [facility] PCO RN Member Role: Primary Care Nurse Name: Shawnee Lane RN Position: [facility] ED RN W/OE and Tasks Member Role: Primary Care Nurse Name: Erna Douglass RN Position: [facility] SN RN Member Role: Primary Care Nurse Name: Keyana Ndiaye RN Position: [facility] [employer] Bearer Member Role: Primary Care Nurse Name: Yudy Trujillo RN Position: [facility] RN Member Role: Primary Care Nurse Name: Anabella Nicholson RN Position: [facility] AMB Nurse Member Role: Primary Care Nurse Name: Ramona Ybarra RN Position: [facility] RN Member Role: Primary Care Nurse Address: Address: [address] [place] [address]- Name: Nancy Gallagher RN Position: [facility] [employer] Member Role: Primary Care Nurse Name: Evelyn Allen RN Position: [facility] OB RN Member Role: Primary Care Nurse Name: Jackelin Watt RN Position: [facility] RN Member Role: Primary Care Nurse Name: Raymundo Elizabeth RN Position: [facility] SN RN Member Role: Primary Care Nurse Name: Opal Calderon RN Position: [facility] RN Member Role: Primary Care Nurse Name: Yadiel Warner RN Position: [facility] SN RN Member Role: Primary Care Nurse Care Team Related Persons Name: BARTOLOME IBRAHIM Address: home [address], [place] Name: GIANLUCA IBRAHIM Address: [address] [place], [place] Name: ABBIE IBRAHIM Address: [address] [place], [place] Name: SIM CERDA Name: DIANE CERDA Address: [address] Name: SOLO CORRIGAN Address: [address] [place], [place] Name: SOLO FLORES Address: home [address] [place] [address] Name: RAYMUNDO AMYFIELD Address: [address] [place], [place] [address]
--- OUTSIDE RECORDS SUMMARY | 2024-01-27 11:27 | XMS_ITS | Continuity of Care Document ---
[facility] Organization [facility] Address [address] [place] [address]- Care Team Providers Care Clinical Psychologist Licensed Name Role Phone Silvio Low MD Primary Care Physician Encounter [facility] Date(s): 04/15/20 - 04/15/[address] [address]- [facility] Discharge Disposition: A-D/C Walkout Attending Physician: Sylvie Pinedo MD Admitting Physician: Sylvie Pinedo MD Referring Physician: Not on Staff, Referring MD Allergies, Adverse Reactions, Alerts Substance Reaction Severity Status propranolol Rash Active Zoloft tachycardia n/v Active Nardil Palpitations - rapid N&V - Nausea and vomiting C/O - a headache Active Inderal n/v,tachcardia Active Cefzil Hives Active Haldol Active Reglan severe anxiety~panic Active Lexapro n/v Active Xarelto rash Active Compazine severe anxiety Hives Active Immunizations [...] with hydrocortisone as needed for adrenal crisis, 04/09/20 14:52:00 EDT, Supply, 169, cm, 04/05/20 12:55:00 EDT, Height, 85, kg, 03/15/20 2:33:00 EDT, Dry Weight Start Date: 04/09/20 Status: Ordered albuterol 90 mcg/inh inhalation powder 2 puffs, Inhalation, Every 4 hours, PRN Wheezing/Shortness of Breath, Maintenance, 03/08/20 16:57:00 EDT, Powder Start Date: 03/08/20 Status: Ordered Benadryl Capsule [...] capsule, 1 Refills, Maintenance, 10/21/19 11:17:00 EST, [facility] #[id number], 1 capsule By Mouth 3 times a [...] 04/09/21 14:58:00 EDT, 04/09/20 14:57:00 EDT, Tablet, [facility] #[id number], 169, cm, 04/05/20 12:55:00 EDT, Height, 85, [...] mg, Intramuscular, Once, prn adrenal crisis, # 2 each, 11 Refills, Soft Stop, 04/09/20 14:51:00 EDT, [facility] #[id number], 169, cm, 04/05/20 12:55:00 EDT, Height, 85, kg, 03/15/20 2:33:00 EDT, Dry Weight Start Date: 04/09/20 Status: Ordered Vitamin D3 oral tablet 5,000 iu, By Mouth, Every week, # 30 tablet, 0 Refills, Maintenance, 09/24/17 10:55:41, Tablet Start Date: 09/24/17 Status: Ordered Zofran ODT 4 mg oral tablet, disintegrating 1 tablet = 4 mg, By Mouth, Every 8 hours, PRN Nausea & Vomiting, # 5 tablet, 0 Refills, Maintenance, 12/05/19 20:49:00 EDT, DIS Tablet, [facility] #[id number], 170, cm, 12/05/19 19:19:00 EDT, Height, 88.7, kg, 12/05/19 19:19:00 EDT, Dry Weight Start Date: 12/05/19 Status: Ordered Problem List Condition Effective Dates Status Health Status Inform ant Asthma(Confirmed) Active Pacemaker, Biotronik, insert ed 10/29/14(Confirmed) 1 Active Colitis(Confirmed) Active Essential hypertension(Confirmed) Active Gastroesophageal [...]
--- OUTSIDE RECORDS SUMMARY | 2024-01-27 11:27 | XMS_ITS | Continuity of Care Document ---
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 Refills 0, Acute,for pain, 03/21/23 23:48:00 EDT, 03/18/23 23:48:00 EDT, Route to Pharmacy Electronically, [facility] #[id number] Tablet, Partial fill upon patient... Start Date: 03/18/23 Stop Date: 03/21/23 Status: Ordered Albuterol (Eqv-ProAir HFA) 90 mcg/inh [...] 12/31/22 14:22:00 EDT, Route to Pharmacy Electronically, [facility] #[id number], Partial fill upon patient request if the prescription is for a schedule II opi... Start Date: 12/31/22 Status: Ordered Aspirin Low Dose 81 mg oral delayed release tablet 1 tablet, By Mouth, Daily, # 30 tablet, 3 Refills, Maintenance, 08/17/22 15:43:00 EST, [facility] #[id number], 170, cm, 05/13/22 17:18:00 EDT, Height, 88.8, [...] Start Date: 12/30/20 Status: Ordered Dilaudid Inj 0.5 mg, Injection, IV Push Slowly, Once, PRN for Pain , Severe, STAT, 03/18/23 22:56:00 EDT Start Date: 03/18/23 Stop Date: 03/18/23 Status: Completed famotidine 20 mg oral tablet 20 mg, 1, tablet, By Mouth, 2 times a day, # 180 tablet, Refills 0, Tot. Refills 0, Maintenance, 01/08/21 13:59:00 EDT, Route to Pharmacy Electronically, [facility] #[id number], Partial fill upon patient request if the prescription is for a sched... Start Date: 01/08/21 Status: Ordered Flonase 50 mcg/inh nasal spray 2 sprays, Nares, Both, 2 times a day, PRN Congestion, # 16 Gm, 0 Refills, Maintenance, 08/20/20 11:17:00 EST, [place], [facility] #[id number], Partial fill upon patient request if the prescriptionis for a schedule II opioid drug., 170, cm, 2... Start Date: 08/20/20 Status: Ordered gabapentin 300 mg oral capsule 300 mg, 1, capsule, By Mouth, 2 times a day, # 60 capsule, Refills 4, Tot. Refills 4, Maintenance, 11/11/22 15:13:00 EST, Route to Pharmacy Electronically, [facility] #[id number], Partial fill upon patient request if the [...] 12/31/22 14:22:00 EDT, Route to Pharmacy Electronically, [facility] #[id number], Partial fill upon patient request if the prescription is for a sched... Start Date: 12/31/22 Stop Date: 12/26/23 Status: Ordered KlonoPIN 1 mg oral tablet 1 tablet = 1 mg, By Mouth, 2 times a day, dose is BID, # 60 tablet, 4 Refills, Maintenance, 03/10/23 15:33:00 EDT, [facility] #[id number], NO EARLY REFILLS, 170, cm, 02/01/23 7:48:00 EDT, Height, 96, kg, 02/01/23 7:48:00 EDT, Dry Weight Start Date: 03/10/23 Stop Date: 08/07/23 Status: Ordered lidocaine 1.8% topical film 1 patch, Topically, Daily, leave on up to 12 hours, # 30 each, 0 Refills, Maintenance, 08/24/19 8:56:45 EST, Film Start Date: 08/24/19 Status: Ordered Metoprolol Tartrate 100 mg oral tablet 1 tablet = 100 mg, By Mouth, 2 times a day, # 60 tablet, 0 Refills, Maintenance, 12/31/22 14:21:00 EDT, [facility] #[id number], Partial fill upon patient request if the prescription is for a schedule II opioid drug., 170, cm, 12/31/22 13:57:00 ED... Start Date: 12/31/22 Status: Ordered nitroglycerin 0.4 mg sublingual tablet 1 tablet, Sublingual, Every 5 minutes, PRN NEEDED FOR CHEST PAIN MAX 3 DOSES IN 15 MINUTES IF PAIN PERSISTS CALL 911, # 100 tablet, 3 Refills, Maintenance, 12/21/22 11:43:00 EDT, [facility] #[id number], 170, cm, 05/13/22 17:18:00 EDT, Height,... Start Date: 12/21/22 Status: Ordered ondansetron 4 mg oral tablet 1 tablet = 4 mg, By Mouth, Every 8 hours, for 3 days, # 9 tablet, 0 Refills, Acute 03/21/23 23:49:00 EDT, 03/18/23 23:49:00 EDT, Tablet, [facility] #[id number], Partial fill upon patient requestif the prescription is for a schedule II opioid osmar... Start Date: 03/18/23 Stop Date: 03/21/23 Status: Ordered ondansetron 8 mg oral tablet, disintegrating 1 tablet = 8 mg, By Mouth, 3 times a day, PRN Nausea & Vomiting, # 30 tablet, 0 Refills, Maintenance, 12/26/20 12:55:00 EDT, [facility] #[id number], Partial fill upon patient request if the prescription is for a schedule II opioid drug., 170, cm,... Start Date: 12/26/20 Status: Ordered Percocet-5/325 325 mg-5 mg oral tablet 3 tablet, Tablet, By Mouth, On Discharge, STAT, 03/18/23 23:50:00 EDT Start Date: 03/18/23 Stop Date: 03/19/23 Status: Completed Potassium Chloride = 40 mEq, By Mouth, [...] capsule, 4 Refills, Maintenance, 11/11/22 15:17:00 EST, [facility] #[id number], Partial fill upon patient request if the [...] 03/10/23 15:36:00 EDT, Route to Pharmacy Electronically, [facility] #[id number], Partial fill upon patient request if the [...] Refills, Soft Stop, 04/20/22 10:54:00 EDT, [place], [facility] #[id number], Partial fill upon patient... Start Date: 04/20/22 Status: Ordered spironolactone 25 mg oral tablet 25 mg, 1, tablet, By Mouth, Daily, # 90 tablet, Refills 3, Tot. Refills 3, Maintenance, 09/13/22 16:11:00 EST, Route to Pharmacy Electronically, [facility] #[id number], Partial fill upon patientrequest if the prescription is for a schedule II op... Start Date: 09/13/22 Stop Date: 09/08/23 Status: Ordered traZODone 300 mg oral tablet 1 tablet = 300 mg, By Mouth, Daily at bedtime, # 30 tablet, 4 Refills, Maintenance, 11/11/22 15:09:00 EST, [facility] #[id number], Partial fill upon patient request if the [...] Exam Date Time Procedure Performing Provider Status 03/18/23 10:[address] Abdomen W/ Contrast [facility] Finnegan; Auth (Verified) Notes: (CT Abdomen W/ Contrast) Reason For Exam: Pain RESULT: CT Abdomen W/ Contrast EXAMINATION: CT Angio Chest, CT Abdomen W/ Contrast INDICATION: Hx of Present Illness: hx addisons disease, feeling weak, nausea, burning in chest for a couple of days, no improvement to heartburn meds, +10 lb wt gain in 1 week; Reason: Other:; PE suspected, Intermediate prob, positive D- dimer,; Clinical Question(s): Pulmonary Embolism TECHNIQUE: Spiral CTA of the chest was performed after rapid IV contrast administration without cardiac gating triggered by an ALEXEI on the main pulmonary artery. Spiral CT of the abdomen was then performed in the portal venous phase. Images are formatted in multiple planes using 2-D multiplanar and 3-D maximum intensity projection. 100 cc of Omnipaque 300 was administered intravenously. Weight-based protocol using automatic tube modulation was used to optimize exposure parameters. CTDIvol Body: 9.20 mGy, DLP Body: 1152 mGy*cm. COMPARISONS: Multiple priors including 07/09/2021 and 09/30/2017. ANGIOGRAPHIC FINDINGS: No pulmonary embolism to the subsegmental level. Normal caliber pulmonary arteries. No acute aortic abnormality seen on this study performed without cardiac gating. Vasculature of the abdomen was imaged in the venous phase. No abdominal aortic aneurysm. No acute vascular findings. 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 Trachea and Airways: Patent without evidence of tracheal or endobronchial lesion. Lungs and Pleura: No focal consolidation or pulmonary edema. 6 mm pulmonary nodule associated with the left major fissure (image 42, series 90122), likely an intrapulmonary lymph node and appears stable since 2018; therefore, benign. No additional imaging required. No effusion or pneumothorax. 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 No mediastinal or hilar lymphadenopathy. No esophageal abnormality. Partially imaged thyroid is unremarkable. Heart: Heart is normal in size. No pericardial effusion. Chest Wall Soft Tissues: Normal. Diaphragm : No significant abnormality. Liver: Multiple unchanged hepatic cysts. Otherwise normal size, attenuation and contour. No suspicious mass. Gallbladder: Status post cholecystectomy. Bile ducts: No biliary ductal dilation. Spleen: Normal. Accessory splenic tissue is incidentally noted. Pancreas: Normal. Adrenal glands: Normal. Kidneys and ureters: No hydronephrosis, stones, or suspicious masses. Stomach, small bowel, and large bowel: Findings compatible with fundoplication of the stomach. No evidence of bowel obstruction. No focal wall thickening. Peritoneum and retroperitoneum: No ascites or pneumoperitoneum. No omental or mesenteric lesions. Lymph nodes: No enlarged lymph nodes. Abdominal wall: Unremarkable. Bones: No acute abnormality. IMPRESSION: No evidence of pulmonary embolism. No evidence of acute aortic syndrome. No acute abnormality identified in the chest or abdomen. Preliminary read was provided by [facility]. I concur with the salient findings of the [facility] report. No major discrepancy identified. WSN: [id number] Ordering Physician: Jessica Miller Dictated By: Petros Rivera MD Dictated Date/Time: 03/19/23 8:33 am Reviewed By: Petros Rivera MD Signed By: Petros Rivera MD Signed Date/Time: 03/19/23 8:33 am Transcribed By: DIANE Transcribed Date/Time: 03/19/23 8:08 am * Exam Date Time Procedure Performing Provider Status 03/18/23 10:[address] Angio Chest [facility] ; Auth (Verified) Notes: (CT Angio Chest) Reason For Exam: PE suspected, Intermediate prob, positive D-dimer,;Other: RESULT: CT Angio Chest EXAMINATION: CT Angio Chest, CT Abdomen W/ Contrast INDICATION: Hx of Present Illness: hx addisons disease, feeling weak, nausea, burning in chest for a couple of days, no improvement to heartburn meds, +10 lb wt gain in 1 week; Reason: Other:; PE suspected, Intermediate prob, positive D- dimer,; Clinical Question(s): Pulmonary Embolism TECHNIQUE: Spiral CTA of the chest was performed after rapid IV contrast administration without cardiac gating triggered by an ALEXEI on the main pulmonary artery. Spiral CT of the abdomen was then performed in the portal venous phase. Images are formatted in multiple planes using 2-D multiplanar and 3-D maximum intensity projection. 100 cc of Omnipaque 300 was administered intravenously. Weight-based protocol using automatic tube modulation was used to optimize exposure parameters. CTDIvol Body: 9.20 mGy, DLP Body: 1152 mGy*cm. COMPARISONS: Multiple priors including 07/09/2021 and 09/30/2017. ANGIOGRAPHIC FINDINGS: No pulmonary embolism to the subsegmental level. Normal caliber pulmonary arteries. No acute aortic abnormality seen on this study performed without cardiac gating. Vasculature of the abdomen was imaged in the venous phase. No abdominal aortic aneurysm. No acute vascular findings. 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 Trachea and Airways: Patent without evidence of tracheal or endobronchial lesion. Lungs and Pleura: No focal consolidation or pulmonary edema. 6 mm pulmonary nodule associated with the left major fissure (image 42, series 71419), likely an intrapulmonary lymph node and appears stable since 2018; therefore, benign. No additional imaging required. No effusion or pneumothorax. Mediastinum and elias: Unchanged increased ill-defined soft tissue density in the anterior mediastinum, likely related to the patient's known Latah's disease. No mediastinal or hilar lymphadenopathy. No esophageal abnormality. Partially imaged thyroid is unremarkable. Heart: Heart is normal in size. No pericardial effusion. Chest Wall Soft Tissues: Normal. Diaphragm : No significant abnormality. Liver: Multiple unchanged hepatic cysts. Otherwise normal size, attenuation and contour. No suspicious mass. Gallbladder: Status post cholecystectomy. Bile ducts: No biliary ductal dilation. Spleen: Normal. Accessory splenic tissue is incidentally noted. Pancreas: Normal. Adrenal glands: Normal. Kidneys and ureters: No hydronephrosis, stones, or suspicious masses. Stomach, small bowel, and large bowel: Findings compatible with fundoplication of the stomach. No evidence of bowel obstruction. No focal wall thickening. Peritoneum and retroperitoneum: No ascites or pneumoperitoneum. No omental or mesenteric lesions. Lymph nodes: No enlarged lymph nodes. Abdominal wall: Unremarkable. Bones: No acute abnormality. IMPRESSION: No evidence of pulmonary embolism. No evidence of acute aortic syndrome. No acute abnormality identified in the chest or abdomen. Preliminary read was provided by [facility]. I concur with the salient findings of the [facility] report. No major discrepancy identified. WSN: [id number] Ordering Physician: Jessica Miller Dictated By: Petros Rivera MD Dictated Date/Time: 03/19/23 8:33 am Reviewed By: Petros Rivera MD Signed By: Petros Rivera MD Signed Date/Time: 03/19/23 8:33 am Transcribed By: DIANE Transcribed Date/Time: 03/19/23 8:08 am * Exam Date Time Procedure Performing Provider Status 03/18/23 7:04 PM Chest 2 Views Frontal and Lat ChandlerSusie bartlett; Auth (Verified) Notes: (Chest 2 Views Frontal and Lat) Reason For Exam: Chest Pain;Other: RESULT: Chest 2 Views Frontal and Lat Examination: Chest performed on 03/18/2023. History: Weakness. Chest pain. Findings: Frontal and lateral views of the chest are compared to a prior study dated 02/01/2023. Pacer is noted. The cardiac and mediastinal silhouettes are within normal limits. The lungs are clear. The osseous and soft tissue structures are unremarkable. There are surgical clips in the right upper quadrant. Impression: There is no acute cardiopulmonary disease. WSN: [id number] Ordering Physician: Sourav Brownlee Dictated By: Cindy Jama MD Dictated Date/Time: 03/18/23 7:05 pm Reviewed By: Cindy Jama MD Signed By: Cindy Jama MD Signed Date/Time: 03/18/23 7:05 pm Transcribed By: DIANE Transcribed Date/Time: 03/18/23 7:05 pm Vital Signs Most recent to oldest [Reference Range]: 1 2 3 Height 169 cm (03/18/23 11:58 PM) 169 cm (03/18/23 7:06 PM) 169 cm (03/18/23 4:20 PM) Weight 99.8 kg (03/18/23 7:06 PM) 99.8 kg (03/18/23 4:20 PM) Oxygen Saturation [94-100 %] 97 % (03/18/23 11:58 PM) 97 % (03/18/23 7:06 PM) 99 % (03/18/23 4:20 PM) Pulse Rate [55-90 bpm] 59 bpm (03/18/23 11:58 PM) 69 bpm (03/18/23 7:06 PM) 77 bpm (03/18/23 4:20 PM) Body Mass Index [18.5-24.99 kg/m2] 34.94 kg/m2 *>HHI* (03/18/23 7:06 PM) Blood Pressure [90-138/55-84 mm Hg] 143/87mm Hg *H* (03/18/23 11:58 PM) 138/72mm Hg (03/18/23 7:06 PM) 145/83mm Hg *H* (03/18/23 4:20 PM) Respiratory Rate [16-30 br/min] 18 br/min (03/19/23 12:07 AM) 18 br/min (03/18/23 11:58 PM) 18 br/min (03/18/23 11:41 PM) Temperature [96.8-100.4 DegF] 97.9 DegF (03/18/23 11:58 PM) 96.8 DegF (03/18/23 7:06 PM) 97.4 DegF (03/18/23 4:20 PM) Mode of Delivery (Oxygen) Room air (03/18/23 11:58 PM) Room air (03/18/23 7:06 PM) Room air (03/18/23 4:20 PM) Blood pressure sites Arm, left (03/18/23 11:58 PM) Arm, right (03/18/23 7:06 PM) Arm, left (03/18/23 4:20 PM) Temperature Route Oral (03/18/23 11:58 PM) Temporal (03/18/23 7:06 PM) Temporal (03/18/23 4:20 PM) Dry Weight 99.8 kg (03/18/23 7:06 PM) 99.8 kg (03/18/23 4:20 PM) Weight Obtained Via Standing scale (03/18/23 4:20 PM) Dry Weight Obtained Via Standing scale (03/18/23 4:20 PM) Social History Social History Type Response Smoking Status Former smoker, quit more than 30 days ago entered on: 02/01/23 Sex Implantable Device List Procedure Provider Procedure Date Device Type Site Cystoscopy Retrograde Ureteral Stent Navneet Hernandez MD, Bruno Pena 07/09/21 Unknown Ureter Device Identifier Serial Number Lot or Batch Number Manufacturing Date Expiration Date Distinct Identification Code MRI Safety Implantable Status Assigning Authority Unknown Unknown Unknown Unknown 07/09/21 Unknown Unknown Active Un known EKG study * Event Display: ECG 12-Lead Authored Date: Please click on pdf link to open report * Event Display: ECG 12-Lead Authored Date: Ventricular Rate: 79 BPM Atrial Rate: 79 BPM P-R Interval: 136 ms QRS Duration: 80 ms Q-T Interval: 396 ms QTC Calculation(Bazett): 454 ms P [place]: 34 degrees R Rich[place]: 7 degrees T Rich[place]: 34 degrees Normal sinus rhythm Normal ECG When compared with ECG of 01-FEB-2023 03:44, No significant change was found Confirmed by LALITA WILLARD MD ([id number]) on 03/19/2023 10:48:01 PM Delta: LALITA WILLARD MD Note * Jessica Miller MD: PERFORM, SIGN, VERIFY Event Display: Patient Education Handout Authored Date: [id number] * Jessica Miller MD: PERFORM Event Display: Patient Education Leaflets Authored Date: [id number] Vomiting (Adult) ?? [id number] Vomiting (Adult) Vomiting is a common symptom that may be due to different causes. These include gastroenteritis (stomach flu), food poisoning, and gastritis. Other more serious causes of vomiting may be hard to diagnose early in the illness. That's why it's important to watch for the warning signs listed below. The main danger from repeated vomiting is dehydration. This is because of the loss of water and minerals from the body. When this occurs, your body fluids must be replaced. Home care ??? If symptoms are severe, rest at home for the next 24 hours. ??? Because your symptoms may be from an infection, wash your hands often and well. Use soap and clean, running water or alcohol-based striping machine operator to keep from spreading the infection to others. ??? Wash your hands for at least 20 seconds. Scrub all surfaces of your hands, including between your fingers and under your fingernails each time you wash. Humming the Happy Birthday song twice while you wash is an easy way to make sure you've washed for 20 seconds. ??? Wash your hands after using the toilet, before and after preparing food, before eating food, after changing a diaper, cleaning a wound, caring for a sick person, and blowing your nose, coughing, or sneezing. You should also wash your hands after caring for someone who is sick, touching pet food, or treats, and touching an animal, or animal waste. ??? You may use acetaminophen??or NSAID medicines such as ibuprofen or naproxen to control fever, unless another medicinewas prescribed. Talk with your provider before using these medicines if you have chronic liver or kidney disease or ever had a stomach ulcer or digestive bleeding. Never give aspirin to anyone younger than 18 who is ill with a fever. It may cause severe liver damage. Don't use NSAID medicines if you are already taking one for another condition such as arthritis or take aspirin for heart disease or after a stroke. ??? Don't use tobacco or drink alcohol. These may make your symptoms worse. If youhave trouble stopping either substance, ask your provider for treatment resources. ??? If medicinesfor vomiting were prescribed, take as directed. Tell your provider if they don't work within the expected time period. ??? Once vomiting stops, then follow these guidelines: During the first 12 to 24 hours, follow the diet below: ??? Fruit juices. Apple, grape juice, clear fruit drinks, and electrolyte replacement drinks. ??? Beverages. Water, soft drinks without caffeine; mineral water (plain or flavored), and decaffeinated tea and coffee. ??? Soups. Clear broth and bouillon. ??? Desserts. Plain gelatin, ice pops, and fruit juice bars. As you feel better, you may add 6 to 8 ounces of yogurt per day. During the next 24 hours you may add the following to the above: ??? Hot cereal, plain toast, bread, rolls, and crackers ??? Plain noodles, rice, mashed potatoes, and chicken noodle or rice soup ??? Unsweetened canned fruit such as applesauce, bananas. Don't have pineapple or citrus. ??? Limit caffeine and chocolate. No spices or seasonings except salt. During the next 24 hours: Gradually go back to your normal diet, as you feel better and your symptoms lessen. ?? Follow-up care Follow up with your healthcare provider as advised. ?? When to seek medical advice Call your healthcare provider right away if any of these occur: ??? Constant right-sided lower belly pain or increasing general belly pain ??? Continued vomiting (unable to keep liquids down) for 24 hours ??? Vomiting blood or what looks like coffee grounds ??? Swollen belly ??? Frequent diarrhea (more than 5 times a day), or blood (red or black color) or mucus in diarrhea ??? Peeing less than usual or extreme thirst ??? Weakness, dizziness, or fainting ??? Unusually drowsy or confused ??? Fever of 100.4??F (38??C) oral or higher, or as directed by your provider ??? Yellow color of the eyes or skin ??? Other symptoms get worse or you have new symptoms ?? Last Reviewed Date: 2021 ?? 0525-1409 [employer]. All rights reserved. This information is not intended as a substitute for professional medical care. Always follow your healthcare professional's instructions. ?? Patient Care team information Care Team Personnel Name: Daina Ibrahim RN Position: [facility] ED RN W/OE and Tasks Member Role: Primary Care Nurse Name: Madeline Baird RN Position: [facility] ED RN W/OE and Tasks Member Role: Primary Care Nurse Name: Teresa Carpio Position: [facility] RN Member Role: Primary Care Nurse Name: Inge Elizabeth RN Position: [facility] SN RN Member Role: Primary Care Nurse Name: Kelley Prasad RN Position: [facility] RN Member Role: Primary Care Nurse Name: Cindy Medeiros RN Position: [facility] RN Member Role: Primary Care Nurse Name: Linnette De La O RN Position: [facility] PASTRY CHEF Member Role: Primary Care Nurse Name: Alina Castillo NP Position: [facility] Associate Professional Member Role: Primary Care Nurse Address: Address: [address] [place] [address]- Name: Mary Anne Kilpatrick RN Position: [facility] MR W/ Merge Member Role: Primary Care Nurse Name: Agustín Faria MD Position: [facility] Outreach Member Role: PCP Address: Address: [address] [place] [address]- [place] Name: Nicole Hernández RN Position: [facility] RN Member Role: Primary Care Nurse Name: Douglas Harris Position: [facility] Cardio/Pulm Mgr ([facility]) Member Role: Primary Care Nurse Name: Lindsay Srinivasan CNM Position: [facility] Bag Shaker Member Role: Primary Care Nurse Address: Address: [address] [facility] [place] [address]- [place] Name: Larissa Olson [place] Position: [facility] RN Member Role: Primary Care Nurse Name: Karen Roa RN Position: [facility] ED RN W/OE and Tasks Member Role: Primary Care Nurse Name: Mary Alice Stevens RN Position: [facility] RN Member Role: Primary Care Nurse Name: Beverly Grey Position: [facility] RN Member Role: Primary Care Nurse Name: Alexy Geronimo RN Position: [facility] RN Member Role: Primary Care Nurse Name: Raúl Rudolph DO Position: [facility] TOPOGRAPHIC COMPUTATOR MD Member Role: Lifetime TOPOGRAPHIC COMPUTATOR Physician Address: Address: [address] [facility] [place] [address]- [place] Name: Evelyn Haynes RN Position: [facility] RN Member Role: Primary Care Nurse Name: Crissy Metzger RN Position: [facility] RN Member Role: Primary Care Nurse Name: Elisa Gilbert RN Position: [facility] RN Member Role: Primary Care Nurse Name: Corina Solorio RN Position: [facility] AMB Nurse Member Role: Primary Care Nurse Name: Shawnee Lane RN Position: [facility] ED RN W/OE and Tasks Member Role: Primary Care Nurse Name: Erna Douglass RN Position: [facility] SN RN Member Role: Primary Care Nurse Name: Keyana Ndiaye RN Position: [facility] Hospital 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 Truck Driver Member Role: Primary Care Nurse Name: Yudy Trujillo RN Position: [facility] RN Member Role: Primary Care Nurse Name: Anabella Nicholson RN Position: [facility] AMB Nurse Member Role: Primary Care Nurse Name: Ramona Ybarra RN Position: [facility] RN Member Role: Primary Care Nurse Address: Address: [address] [place] [address]- [place] Name: Elliott RN, Nancy Joaquin Position: [facility] Hospital 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 Truck Driver Member Role: Primary Care Nurse Name: Evelyn Allen RN Position: [facility] OB RN Member Role: Primary Care Nurse Name: Jackelin Watt RN Position: [facility] RN Member Role: Primary Care Nurse Name: Raymundo Elizabeth RN Position: [facility] SN RN Member Role: Primary Care Nurse Name: Opal Calderon RN Position: [facility] RN Member Role: Primary Care Nurse Name: Timmy RNYadiel Position: [facility] SN RN Member Role: Primary Care Nurse Name: Adela RN, Alfred Lackey Position: [facility] ED RN W/OE and Tasks Member Role: Patient Care Provider Name: Jessica Miller MD Position: [facility] ED Medicine MD Member Role: ED Attending Physician Address: Address: [address] [facility] [place] [address]- [place] Care Team Related Persons Name: BARTOLOME IBRAHIM Address: home [address] [place] [address] Name: GIANLUCA IBRAHIM Address: [address] [place] [address] Name: ABBIE IBRAHIM Address: [address] [place] [address] Name: SIM CERDA Name: DAINE CERDA Address: [address] [place] [address] Name: SOLO CORRIGAN Address: [address] [place] [address] Name: SOLO FLORES Address: [address] [place] [address] Name: RAYMUNDO MAYFIELD Address: home [address] [place] [address]
--- OUTSIDE RECORDS SUMMARY | 2024-01-27 11:27 | XMS_ITS | Continuity of Care Document ---
Author Organization [facility] [place] Address [address] [place] [address]- Care Team Providers Care Radiator Cleaner Name Role Phone Dash WILCOX (PR), [place] Anderson Primary Care Physician Encounter [facility] Date(s): 08/17/23 - 09/25/[address] [address]- Attending Physician: Angela OCAMPO, Anna Castro Allergies, Adverse Reactions, Alerts Substance Reaction [...] influenza virus vaccine, inactivated 2 06/23/16 Gi gaulberto influenza virus vaccine, inactivated 3 06/29/13 Gi [...] 0 Refills, Maintenance, 07/15/23 11:42:00 EDT, Tablet, [facility] #[id number], Partial fill upon patient request if the [...] 4 Refills, Maintenance, 08/10/23 14:21:00 EST, Tablet, [facility] #[id number], Partial fill upon patient request if the prescription is fora schedule II opioid drug., 170, cm, 08/05/23 3:21:... Start Date: 08/10/23 Stop Date: 01/07/24 Status: Ordered Metoprolol Tartrate 100 mg oral tablet 1 tablet, By Mouth, 2 times a day, # 60 tablet, 0 Refills, Maintenance, 09/10/23 16:43:00 EST, [facility] #[id number], 170, cm, 08/27/23 7:32:00 EST, Height, 99, [...] 0 Refills, Maintenance, 05/13/23 10:33:00 EDT, Tablet, [facility] #[id number], Partial fill upon patient request if the prescription is for a schedule II opioid drug., 1... Start Date: 05/13/23 Stop Date: 05/16/23 Status: Ordered potassium chloride 10 mEq oral tablet, extended release 2 tablet = 20 mEq, By Mouth, Daily, # 14 tablet, 0 Refills, Soft Stop, 08/27/23 8:49:00 EST, ER Tablet, [facility] #[id number], Partial fill upon patient request if the [...] capsule, 4 Refills, Maintenance, 08/10/23 14:14:00 EST, [facility] #[id number], Partial fill upon patient request if the [...] Refills, Soft Stop, 05/27/23 14:16:00 EDT, Powder, [facility] #[id number], Partial fill upon patient... Start Date: 05/27/23 Status: Ordered spironolactone 25 mg oral tablet 1, tablet, By Mouth, Daily, # 30 tablet, Refills 0, Maintenance, 09/10/23 16:43:00 EST, Route to Pharmacy Electronically, [facility] #[id number], 170, cm, 08/27/23 7:32:00 EST, Height, 99, kg, 08/18/23 9:13:00 EST, Dry Weight Start Date: 09/10/23 Status: Ordered Wellbutrin SR 100 mg/12 hours oral tablet, extended release 1 tablet = 100 mg, By Mouth, Daily, # 30 tablet, 4 Refills, Maintenance, 08/10/23 14:26:00 EST, [facility] #[id number], Partial fill upon patient request if the [...] information Care Team Personnel Name: Dash WILCOX (PR) , [place] Anderson Position: [facility] Outreach Member Role: PCP Address: Address: [address] [place] [phone] [place] Name: Daina Ibrahim RN Position: [facility] ED RN W/OE and Tasks Member Role: Primary Care Nurse Name: Madeline Baird RN Position: [facility] ED RN W/OE and Tasks Member Role: Primary Care Nurse Name: Teresa Carpio Position: [facility] RN Member Role: Primary Care Nurse Name: Inge Elizabeth RN Position: [facility] RN Member Role: Primary Care Nurse Name: Kelley Prasad RN Position: [facility] RN Member Role: Primary Care Nurse Name: Cindy Medeiros RN Position: [facility] RN Member Role: Primary Care Nurse Name: Linnette De La O RN Position: [facility] CIGARETTE MAKING MACHINE OPERATOR Member Role: Primary Care Nurse Name: Alina Castillo NP Position: [facility] Associate Professional Member Role: Primary Care Nurse Address: Address: [address] [place] [address]- [place] Name: Mary Anne Kilpatrick RN Position: [facility] MR W/ Merge Member Role: Primary Care Nurse Name: Nicole Hernández RN Position: [facility] RN Member Role: Primary Care Nurse Name: Lindsay Srinivasan CNM Position: [facility] Helper Shear Operator Member Role: Primary Care Nurse Address: Address: [address] [place] [address]- [place] Name: Kiana Sabillon RN Position: [facility] RN Member Role: Primary Care Nurse Name: Larissa Olson [place] Position: [facility] RN Member Role: Primary Care Nurse Name: Karen Roa RN Position: [facility] ED RN W/OE and Tasks Member Role: Primary Care Nurse Name: Mary Alice Stevens RN Position: [facility] RN Member Role: Primary Care Nurse Name: Beverly Grey Position: [facility] RN Member Role: Primary Care Nurse Name: Alexy Geronimo RN Position: [facility] ED RN W/OE and Tasks Member Role: Primary Care Nurse Name: Raúl Rudolph DO Position: [facility] DIRECTOR OF PARKS AND RECREATION MD Member Role: Lifetime DIRECTOR OF PARKS AND RECREATION Physician Address: Address: [address] [place] [address]- Name: Evelyn Haynes RN Position: [facility] RN Member Role: Primary Care Nurse Name: Crissy Metzger RN Position: [facility] RN Member Role: Primary Care Nurse Name: Elisa Gilbret RN Position: [facility] RN Member Role: Primary Care Nurse Name: Corina Solorio RN Position: [facility] AMB Nurse Member Role: Primary Care Nurse Name: Shawnee Lane RN Position: [facility] ED RN W/OE and Tasks Member Role: Primary Care Nurse Name: Ana Estrada RN Position: [facility] RN Member Role: Primary Care Nurse Name: Erna Douglass RN Position: [facility] RN Member Role: Primary Care Nurse Name: Keyana Ndiaye RN Position: [facility] Head Esthetician Member Role: Primary Care Nurse Name: Anabella Nicholson RN Position: [facility] Nurse Member Role: Primary Care Nurse Name: Brenda Tomas RN Position: [facility] Outreach Member Role: Primary Care Nurse Name: Ramona Ybarra RN Position: [facility] RN Member Role: Primary Care Nurse Address: Address: [address] [place] [address]- Name: Nancy Gallagher RN Position: [facility] Head Esthetician Member Role: Primary Care Nurse Name: Evelyn Allen RN Position: [facility] OB RN Member Role: Primary Care Nurse Name: Jackelin Watt RN Position: [facility] RN Member Role: Primary Care Nurse Name: Raymundo Elizabeth RN Position: [facility] SN RN Member Role: Primary Care Nurse Name: Opal Calderon RN Position: [facility] RN Member Role: Primary Care Nurse Name: Yadiel Warner RN Position: [facility] SN RN Member Role: Primary Care Nurse Care Team Related Persons Name: PATRICE BARTOLOME Address: [address] [place] [address] Name: GIANLUCA IBRAHIM Address: [address] [place], [place] Name: ABBIE IBRAHIM Address: [address] [place] [address] Name: SIM CERDA Name: DIANE CERDA Address: [address] [place] [address] Name: SOLO CORRIGAN Address: [address] [place], [place] Name: SOLO FLORES Address: [address] [place], [place] Name: RAYMUNDO MAYFIELD Address: home [address] [facility] [place] [address]
--- OUTSIDE RECORDS SUMMARY | 2024-01-27 11:27 | XMS_ITS | Continuity of Care Document ---
Author Organization [facility] Address [address] [place] [address]- Care Team Providers Care Orthopedic Nurse Name Role Phone Bienvenido WILCOX, Agustín Joaquin Primary Care Physician Encounter [facility] Date(s): 04/09/23 - 05/09/23 [facility] [address] [place] [address]- Allergies, Adverse Reactions, Alerts Substance Reaction Severity [...] 12/31/22 14:22:00 EDT, Route to Pharmacy Electronically, [facility] #[id number], Partial fill upon patient request if the prescription is for a schedule II opi... Start Date: 12/31/22 Status: Ordered Aspirin Low Dose 81 mg oral delayed release tablet 1 tablet, By Mouth, Daily, # 30 tablet, 3 Refills, Maintenance, 08/17/22 15:43:00 EST, [facility] #[id number], 170, cm, 05/13/22 17:18:00 EDT, Height, 88.8, [...] 01/08/21 13:59:00 EDT, Route to Pharmacy Electronically, [facility] #[id number], Partial fill upon patient request if the prescription is for a sched... Start Date: 01/08/21 Status: Ordered Flonase 50 mcg/inh nasal spray 2 sprays, Nares, Both, 2 times a day, PRN Congestion, # 16 Gm, 0 Refills, Maintenance, 08/20/20 11:17:00 EST, [place], [facility] #[id number], Partial fill upon patient request if the prescriptionis for a schedule II opioid drug., 170, cm, 2... Start Date: 08/20/20 Status: Ordered gabapentin 300 mg oral capsule 300 mg, 1, capsule, By Mouth, 2 times a day, # 60 capsule, Refills 4, Tot. Refills 4, Maintenance, 11/11/22 15:13:00 EST, Route to Pharmacy Electronically, [facility] #[id number], Partial fill upon patient request if the [...] 12/31/22 14:22:00 EDT, Route to Pharmacy Electronically, [facility] #[id number], Partial fill upon patient request if the prescription is for a sched... Start Date: 12/31/22 Stop Date: 12/26/23 Status: Ordered KlonoPIN 1 mg oral tablet 1 tablet = 1 mg, By Mouth, 2 times a day, dose is BID, # 60 tablet, 4 Refills, Maintenance, 03/10/23 15:33:00 EDT, [facility] #[id number], NO EARLY REFILLS, 170, cm, 02/01/23 7:48:00 [...] tablet, 0 Refills, Maintenance, 12/31/22 14:21:00 EDT, [facility] #[id number], Partial fill upon patient request if the prescription is for a schedule II opioid drug., 170, cm, 12/31/22 13:57:00 ED... Start Date: 12/31/22 Status: Ordered nitroglycerin 0.4 mg sublingual tablet 1 tablet, Sublingual, Every 5 minutes, PRN NEEDED FOR CHEST PAIN MAX 3 DOSES IN 15 MINUTES IF PAIN PERSISTS CALL 911, # 100 tablet, 3 Refills, Maintenance, 12/21/22 11:43:00 EDT, [facility] #[id number], 170, cm, 05/13/22 17:18:00 EDT, Height,... Start Date: 12/21/22 Status: Ordered ondansetron 8 mg oral tablet, disintegrating 1 tablet = 8 mg, By Mouth, 3 times a day, PRN Nausea & Vomiting, # 30 tablet, 0 Refills, Maintenance, 12/26/20 12:55:00 EDT, [facility] #[id number], Partial fill upon patient request if the [...] capsule, 4 Refills, Maintenance, 11/11/22 15:17:00 EST, [facility] #[id number], Partial fill upon patient request if the [...] 03/10/23 15:36:00 EDT, Route to Pharmacy Electronically, [facility] #[id number], Partial fill upon patient request if the [...] Refills, Soft Stop, 04/20/22 10:54:00 EDT, Powder, [facility] #[id number], Partial fill upon patient... Start Date: 04/20/22 Status: Ordered spironolactone 25 mg oral tablet 25 mg, 1, tablet, By Mouth, Daily, # 90 tablet, Refills 3, Tot. Refills 3, Maintenance, 09/13/22 16:11:00 EST, Route to Pharmacy Electronically, [facility] #[id number], Partial fill upon patientrequest if the prescription is for a schedule II op... Start Date: 09/13/22 Stop Date: 09/08/23 Status: Ordered traZODone 300 mg oral tablet 1 tablet = 300 mg, By Mouth, Daily at bedtime, # 30 tablet, 4 Refills, Maintenance, 11/11/22 15:09:00 EST, [facility] #[id number], Partial fill upon patient request if the [...] Team Personnel Name: Daina Ibrahim RN Position: [facility] ED RN W/OE and Tasks Member Role: Primary Care Nurse Name: Madeline Baird RN Position: [facility] ED RN W/OE and Tasks Member Role: Primary Care Nurse Name: Teresa Carpio Position: [facility] RN Member Role: Primary Care Nurse Name: Inge Elizabeth RN Position: [facility] SN RN Member Role: Primary Care Nurse Name: Kelley Prasad RN Position: [facility] RN Member Role: Primary Care Nurse Name: Cindy Medeiros RN Position: [facility] RN Member Role: Primary Care Nurse Name: Linnette De La O RN Position: [facility] CULTURAL HISTORIAN Member Role: Primary Care Nurse Name: Alina Castillo NP Position: [facility] Associate Professional Member Role: Primary Care Nurse Address: Address: [address] [place] [id number] Name: Mary Anne Kilpatrick RN Position: [facility] MR W/ Merge Member Role: Primary Care Nurse Name: Agustín Faria MD Position: [facility] Outreach Member Role: PCP Address: Address: [address] [facility] [address] [place] [address]- [place] Name: Nicole Hernández RN Position: [facility] RN Member Role: Primary Care Nurse Name: Douglas Harris Position: [facility] Cardio/Pulm Mgr [facility] Member Role: Primary Care Nurse Name: Lindsay Srinivasan CNM Position: [facility] Special Class Welder Member Role: Primary Care Nurse Address: Address: [address] [facility] [place] [address]- [place] Name: Larissa Olson [place] Position: [facility] RN Member Role: Primary Care Nurse Name: Karen Roa RN Position: [facility] ED RN W/OE and Tasks Member Role: Primary Care Nurse Name: Mary Alice Stevens RN Position: [facility] RN Member Role: Primary Care Nurse Name: Beverly Grey Position: [facility] RN Member Role: Primary Care Nurse Name: Alexy Geronimo RN Position: [facility] RN Member Role: Primary Care Nurse Name: Raúl Rudolph DO Position: [facility] CLAY MINER MD Member Role: Lifetime CLAY MINER Physician Address: Address: [address] [facility] [place] [address]- [place] Name: Evelyn Haynes RN Position: [facility] RN Member Role: Primary Care Nurse Name: Crissy Metzger RN Position: [facility] RN Member Role: Primary Care Nurse Name: Elisa Gilbert RN Position: [facility] RN Member Role: Primary Care Nurse Name: Corina Solorio RN Position: [facility] SN RN Member Role: Primary Care Nurse Name: Shawnee Lane RN Position: [facility] ED RN W/OE and Tasks Member Role: Primary Care Nurse Name: Erna Douglass RN Position: [facility] SN RN Member Role: Primary Care Nurse Name: Keyana Ndiaye RN Position: [facility] Hospital Junior High School Teacher Member Role: Primary Care Nurse Name: Anabella Nicholson RN Position: [facility] AMB Nurse Member Role: Primary Care Nurse Name: Brenda Tomas RN Position: [facility] Outreach Member Role: Primary Care Nurse Name: Ramona Ybarra RN Position: [facility] RN Member Role: Primary Care Nurse Address: Address: [address] [place] [address]- Name: Nancy Gallagher RN Position: [facility] Hospital Junior High School Teacher Member Role: Primary Care Nurse Name: Evelyn Allen RN Position: [facility] OB RN Member Role: Primary Care Nurse Name: Jackelin Watt RN Position: [facility] RN Member Role: Primary Care Nurse Name: Raymundo Elizabeth RN Position: [facility] SN RN Member Role: Primary Care Nurse Name: Opal Calderon RN Position: [facility] RN Member Role: Primary Care Nurse Name: Timmy RNYadiel Position: [facility] SN RN Member Role: Primary Care Nurse Care Team Related Persons Name: BARTOLOME IBRAHIM Address: [address] [place] [address] Name: GIANLUCA IBRAHIM Address: [address] [place] [address] Name: ABBIE IBRAHIM Address: [address] [place], [place] Name: SIM CERDA Name: DIANE CERDA Address: [address] [place] [address] Name: SOLO CORRIGAN Address: [address] [place] [address] Name: SOLO FLORES Address: [address] [place] [address] Name: RAYMUNDO MAYFIELD Address: [address] [place] [address]
--- OUTSIDE RECORDS SUMMARY | 2024-01-27 11:27 | XMS_ITS | Continuity of Care Document ---
Author Organization [facility] Address [address] [place] [address]- Care Team Providers Care Early Interventionist Name Role Phone Agustín Faria MD Primary Care Physician [phone] Encounter [facility] Date(s): 11/03/21 - 11/03/[address] [address]- Discharge Disposition: A-D/C Home Attending Physician: Sourav Brownlee MD Admitting Physician: Sourav Brownlee MD Referring Physician: Not on Staff, Referring MD Allergies, Adverse Reactions, Alerts Substance Reaction Severity Status propranolol Rash Active Haldol Active Reglan severe anxiety~panic Active Xarelto rash Active Lexapro n/v Active Zoloft tachycardia n/v Active Nardil Palpitations - rapid N&V - Nausea and vomiting C/O - a headache Active Inderal n/v,tachcardia Active Cefzil Hives Active Compazine severe anxiety Hives Active Immunizations [...] Refills, Maintenance, 07/15/21 10:36:00 EDT, Tablet, [facility], Partial fill upon patient [...] tablet, 0 Refills, Maintenance, 12/26/20 12:55:00 EDT, [facility] #[id number], Partial fill upon patient request if the [...] Refills, Soft Stop, 10/27/21 14:15:00 EST, Powder, [facility] #[id number], Partial fill upon patient... Start Date: 10/27/21 Status: Ordered Zofran 4 mg oral tablet 1 tablet = 4 mg, By Mouth, Every 8 hours, PRN Nausea & Vomiting, # 10 tablet, 0 Refills, Maintenance, 01/20/21 7:49:00 EDT, Tablet, [facility] #[id number], Partial fill upon patient request if the [...] Exam Date Time Procedure Performing Provider Status 11/03/21 2:56 PM Chest 2 Views Frontal and Lat Job Delgado; Modified Notes: (Chest 2 Views Frontal and Lat) Reason For Exam: chest pain;Other: RESULT: Chest 2 Views Frontal and Lat Examination: Chest performed on 11/03/2021. History: Chest pain. Findings: Frontal and lateral views of the chest are compared to a prior study dated 07/09/2021. Pacer is present. The cardiac and mediastinal silhouettes are within normal limits. The lungs are clear. The osseous and soft tissue structures are unremarkable. Impression: There is no acute cardiopulmonary disease. WSN: [id number] Ordering Physician: Sourav Brownlee Dictated By: Cindy Jama MD Dictated Date/Time: 11/03/21 3:00 pm Reviewed By: Cindy Jama MD Signed By: Cindy Jama MD Signed Date/Time: 11/03/21 3:00 pm Transcribed By: DIANE Transcribed Date/Time: 11/03/21 3:00 pm Vital Signs Most recent to oldest [Reference Range]: 1 2 Height 170 cm (11/03/21 1:31 PM) Weight 78.1 kg (11/03/21 1:31 PM) Oxygen Saturation [94-100 %] 99 % (11/03/21 3:30 PM) 99 % (11/03/21 1:39 PM) Pulse Rate [55-90 bpm] 75 bpm (11/03/21 3:30 PM) 90 bpm (11/03/21 1:39 PM) Blood Pressure [90-138/55-84 mm Hg] 128/ 88mm Hg (11/03/21 3:30 PM) 115/82mm Hg (11/03/21 1:39 PM) Respiratory Rate [16-30 br/min] 20 br/mi n (11/03/21 3:30 PM) 18 br/min (11/03/21 1:39 PM) Temperature [96.8-100.4 DegF] 98.5 DegF (11/03/21 1:39 PM) Mode of Delivery (Oxygen) Room air (11/03/21 3:30 PM) Room air (11/03/21 1:39 PM) Temperature Route Oral (11/03/21 1:39 PM) Dry Weight 78.1 kg (11/03/21 1:31 PM) Weight Obtained Via Patient/family state d (11/03/21 1:31 PM) Social History Social History Type Response Smoking Status Current every day rowan munoz; Previous treatment: Counseling; Previous treatment: Nicotine replacement; Other: 1/2 ppd x 20 yrs; entered on: 09/16/16 Sex Medical Equipment Implanted Date:07/09/21Target Site:[place] Description Quantity MRI Company Model STENT STRETCH VL 6FR - BSCI ([id number]) 1 Hachiko Amanda Unknown GO:No Information Assigning Authority: FDA
--- OUTSIDE RECORDS SUMMARY | 2024-01-27 11:27 | XMS_ITS | Continuity of Care Document ---
Author Organization [facility] Address [address] [place] [address]- Care Team Providers Care Child Therapist Name Role Phone Maranda WILCOX, Silvio Martinez Primary Care Physician Encounter [facility] Date(s): 11/11/20 - 12/11/20 [facility] [address] [place] [address]- Allergies, Adverse Reactions, Alerts Substance Reaction Severity [...] capsule, 1 Refills, Maintenance, 10/21/19 11:17:00 EST, [facility] #[id number], 1 capsule By Mouth 3 times a [...] 04/09/21 14:58:00 EDT, 04/09/20 14:57:00 EDT, Tablet, [facility] #[id number], 169, cm, 04/05/20 12:55:00 EDT, Height, 85, [...] 3 Refills, Maintenance, 10/16/20 16:21:00 EST, Tablet, [facility] #[id number], Partial fill upon patient request if the prescription is for a schedul... Start Date: 10/16/20 Stop Date: 02/13/21 Status: Ordered ondansetron 4 mg oral tablet 1 tablet = 4 mg, By Mouth, Every 8 hours, PRN Nausea & Vomiting, # 20 tablet, 0 Refills, Maintenance, 06/18/20 16:48:00 EDT, Tablet, [facility] #[id number], 170, cm, 06/18/20 15:14:00 EDT, Height, 90.4, kg, 06/18/20 15:14:00 EDT, Dry Weight Start Date: 06/18/20 Stop Date: 06/25/20 Status: Ordered ondansetron 8 mg oral tablet, disintegrating 1 tablet = 8 mg, By Mouth, 3 times a day, # 10 tablet, 0 Refills, Maintenance, 10/30/20 17:44:00 EST, [facility] #[id number], Partial fill upon patient request if the [...] Refills, Soft Stop, 10/02/20 11:57:00 EST, Powder, [facility] #[id number], Partial fill upon patient... Start Date: 10/02/20 [...]
--- OUTSIDE RECORDS SUMMARY | 2024-01-27 11:27 | XMS_ITS | Continuity of Care Document ---
Author Organization [facility] Address [address] [place] [id number]- Care Team Providers Care Broadcast Meteorologist Name Role Phone Agustín Faria MD Primary Care Physician Encounter [facility] Date(s): 10/28/21 - 11/27/21 [facility] [address] [place] [phone]- Allergies, Adverse Reactions, Alerts Substance Reaction Severity [...] 0 Refills, Maintenance, 07/15/21 10:36:00 EDT, Tablet, [facility], Partial fill upon patient request if [...] tablet, 0 Refills, Maintenance, 12/26/20 12:55:00 EDT, [facility][id number], Partial fill upon patient request if the [...] Refills, Soft Stop, 10/27/21 14:15:00 EST, Powder, [facility] #[id number], Partial fill upon patient... Start Date: 10/27/21 Status: Ordered Zofran 4 mg oral tablet 1 tablet = 4 mg, By Mouth, Every 8 hours, PRN Nausea & Vomiting, # 10 tablet, 0 Refills, Maintenance, 01/20/21 7:49:00 EDT, Tablet, [facility] #[id number], Partial fill upon patient request if the [...] Model STENT STRETCH VL 6FR - BSCI ([id number]) 1 [employer] Unknown GO:No Information Assigning Authority: FDA
--- OUTSIDE RECORDS SUMMARY | 2024-01-27 11:27 | XMS_ITS | Continuity of Care Document ---
Author Organization [facility] Address [address] [place] [address]- Care Team Providers Care Ruling Technician Name Role Phone Dash WILCOX ([place]), Paola Anderson Primary Care Physician Encounter [facility] Date(s): 07/15/23 - 07/15/[address] [address]- Discharge Disposition: A-D/C Home Attending Physician: Magi Rolon MD Admitting Physician: Magi Rolon MD Referring Physician: Not on Staff, Referring MD Allergies, Adverse Reactions, Alerts Substance Reaction Severity Status propranolol Rash Active droperidol-fentanyl 1 Active Compazine severe anxiety Hives Active Reglan severe anxiety~panic Active Xarelto rash Active Zoloft tachycardia n/v Active Nardil Palpitations - rapid N&V - Nausea and vomiting C/O - a headache Active Inderal n/v,tachcardia Active Cefzil Hives Active Haldol Active Lexapro n/v Active 1Only allergic to [...] tablet, 3 Refills, Maintenance, 08/17/22 15:43:00 EST, [facility] #[id number], 170, cm, 05/13/22 17:18:00 EDT, Height, 88.8, kg, 05/13/22 17:18:00 EDT, Dry Weight Start Date: 08/17/22 Status: Ordered Ativan 1 mg oral tablet 1 tablet = 1 mg, By Mouth, 3 times a day, PRN for anxiety, # 11 tablet, 0 Refills, Maintenance, 07/15/23 11:42:00 EDT, Tablet, [facility][id number], Partial fill upon patient request if the [...] 01/08/21 13:59:00 EDT, Route to Pharmacy Electronically, [facility] #[id number], Partial fill upon patient request if the prescription is for a sched... Start Date: 01/08/21 Status: Ordered Flonase 50 mcg/inh nasal spray 2 sprays, Nares, Both, 2 times a day, PRN Congestion, # 16 Gm, 0 Refills, Maintenance, 08/20/20 11:17:00 EST, [place], [facility] #[id number], Partial fill upon patient request if the prescriptionis for a schedule II opioid drug., 170, cm, ... Start Date: 08/20/20 Status: Ordered gabapentin 300 mg oral capsule See Instructions, 1 cap in the AM, 2 in the afternoon and 2 at bedtime, # 1 each, Refills 4, Tot. Refills 4, Maintenance, 11/11/22 15:13:00 EST, Instructions Replace Required Details, Route to Pharmacy Electronically, [facility] #[id number], Part... Start Date: 11/11/22 Status: Ordered HYDROmorphone Inj 1 mg, Injection, IV Push Slowly, Every 30 minutes for 2 doses/times, Hold for: SBP <100, respiratory depression, AMS, PRN for Other, Pain >3/10, VY, 07/15/23 5:37:00 EDT, Stop date Limited # of times Start Date: 07/15/23 Stop Date: 07/15/23 Status: Completed Insulin Syringe, BD Ultra-Fine 1 cc 31 [...] 05/14/23 20:59:00 EDT, Route to Pharmacy Electronically, [facility] #[id number], Partial fill upon patient request if the [...] 0 Refills, Maintenance, 05/13/23 10:33:00 EDT, Tablet, [facility] #[id number], Partial fill upon patient request if the prescription is for a schedule II opioid drug., 1... Start Date: 05/13/23 Stop Date: 05/16/23 Status: Ordered ondansetron 4 mg oral tablet, disintegrating 1 tablet = 4 mg, By Mouth, Every 8 hours, PRN Nausea & Vomiting, for 10 days, # 30 tablet, 0 Refills, Acute 07/25/23 8:30:00 EST, 07/15/23 8:30:00 EDT, Tablet, [facility] #[id number], Partial fill upon patient request if the prescription is for a... Start Date: 07/15/23 Stop Date: 07/25/23 Status: Ordered prazosin 2 mg oral capsule 2 capsule = 4 mg, By Mouth, Daily at bedtime, if PO intake is low or BP low below 110/70 only take one cap, # 60 capsule, 4 Refills, Maintenance, 11/11/22 15:17:00 EST, [facility] #[id number], Partial fill upon patient request if the [...] 03/10/23 15:36:00 EDT, Route to Pharmacy Electronically, [facility] #[id number], Partial fill upon patient request if the [...] Refills, Soft Stop, 05/27/23 14:16:00 EDT, Powder, [facility] #[id number], Partial fill upon patient... Start Date: 05/27/23 Status: Ordered spironolactone 25 mg oral tablet 25 mg, 1, tablet, By Mouth, Daily, # 30 tablet, Refills 3, Tot. Refills 3, Maintenance, 05/14/23 20:55:00 EDT, Route to Pharmacy Electronically, [facility] #[id number], Partial fill upon patientrequest if the prescription [...] Exam Date Time Procedure Performing Provider Status 07/15/23 4:49 AM Chest 2 Views Frontal and Lat Coreen Alfonso (Verified) Notes: (Chest 2 Views Frontal and Lat) Reason For Exam: Chest Pain;Other: RESULT: Chest 2 Views Frontal and Lat Chest 2 Views Frontal and Lat Hx of Present Illness: chest pain radiating to left arm; Reason: Other:; Chest Pain; Clinical Question(s): Other: COMPARISON: 06/27/2023. FINDINGS: LINES AND TUBES: There is a left-sided pacemaker with leads projecting over the right atrium and right ventricle. LUNGS AND PLEURA: No focal consolidation. Normal pulmonary vascularity. No pleural effusion. No pneumothorax. HEART, MEDIASTINUM AND DAGOBERTO: Unchanged cardiomediastinal silhouette. BONES AND SOFT TISSUES: No acute abnormality. IMPRESSION: No focal consolidation or pleural effusion. WSN: [id number] Ordering Physician: Magi Rolon Dictated By: Mary Alice Serra MD Dictated Date/Time: 07/15/23 8:11 am Reviewed By: Mary Alice Serra MD Signed By: Mary Alice Serra MD Signed Date/Time: 07/15/23 8:11 am Transcribed By: DIANE Transcribed Date/Time: 07/15/23 8:08 am * Exam Date Time Procedure Performing Provider Status 07/15/23 7:[address] Abd/Pelvis W/ IV Contrast Only Daina Cutler; Auth (Verified) Notes: (CT Abd/Pelvis W/ IV Contrast Only) Reason For Exam: vomiting, LLQ pain and tenderness;Pain RESULT: CT Abd/Pelvis W/ IV Contrast Only CT Abd/Pelvis W/ IV Contrast Only Hx of Present Illness: chest pain radiating to left arm; Reason: Pain; vomiting, LLQ pain and tenderness; Clinical Question(s): Other: TECHNIQUE: Spiral CT through the abdomen and pelvis with IV contrast formatted in 3 planes. 100 cc of Omnipaque 300 was administered intravenously. This study was performed without oral contrast. Weight-based protocol using automatic tube modulation was used to optimize exposure parameters. CTDIvol Body: 19.59 mGy, DLP Body: 989 mGy*cm. COMPARISON: 06/24/2023 FINDINGS: Supervisor Uranium Processing View Findings, Lines and Tubes: Partially visualized dual-lead pacemaker, wires intact. Visualized Chest: Lung bases are clear. No pleural effusion. Diaphragm: Normal. Liver: Unchanged well-circumscribed hypodense lesions scattered throughout the liver parenchyma measuring up to 1.9 cm. Normal liver contour. Gallbladder: Absent consistent with prior cholecystectomy. Bile ducts: No biliary ductal dilation. Spleen: Normal. Accessory splenic tissue is incidentally noted. Pancreas: Normal. Adrenal glands: Normal. Kidneys and ureters: No hydronephrosis, stones, or suspicious masses. Small hypodensities that are too small to characterize are noted, requiring no dedicated follow up. Bladder: Normal. Reproductive organs: Status post hysterectomy. Stomach, small bowel, and large bowel: Status post fundoplication. Moderate stool retention throughout the colon. No evidence of bowel wall thickening. No pericolonic inflammatory change. No evidenceof small bowel obstruction. Appendix: Surgically absent. Peritoneum and retroperitoneum: No ascites or pneumoperitoneum. No omental or mesenteric lesions. Lymph nodes: No pathologically enlarged lymph nodes. Blood vessels: Mild abdominal aortic vascular calcification. No aneurysm. No evidence of venous thrombosis. Abdominal and pelvic wall: Unremarkable. Bones: No acute abnormality. Prior L5-S1 fusion. IMPRESSION: No acute findings in the abdomen or pelvis to explain the patient's symptoms. I have personally reviewed the images and I agree with this report. WSN: [id number] Ordering Physician: Magi Rolon Dictated By: Delfin Paez MD Dictated Date/Time: 07/15/23 7:46 am Reviewed By: Aleksandr Fontenot MD Signed By: Aleksandr Fontenot MD Signed Date/Time: 07/15/23 7:51 am Transcribed By: DIANE Transcribed Date/Time: 07/15/23 7:34 am Vital Signs Most recent to oldest [Reference Range]: 1 2 3 Height 174 cm (07/15/23 5:47 AM) 174 cm (07/15/23 4:11 AM) 174 cm (07/15/23 4:07 AM) Weight 95 kg (07/15/23:11 AM) 95 kg (07/15/23:07 AM) Oxygen Saturation [94-100 %] 97 % (07/15/23 5:47 AM) 96 % (07/15/23 4:11 AM) 96 % (07/15/23:07 AM) Pulse Rate [55-90 bpm] 87 bpm (07/15/23 5:47 AM) 83 bpm (07/15/23 4:11 AM) 83 bpm (07/15/23 4:07 AM) Body Mass Index [18.5-24.99 kg/m2] 31.38 kg/m2 *>HHI* (07/15/23 4:07 AM) Blood Pressure [90-138/55-84 mm Hg] 110/66mm Hg (07/15/23:47 AM) 120/83mm Hg (07/15/23 4:11 AM) 120/83mm Hg (07/15/23:07 AM) Respiratory Rate [16-30 br/min] 16 br/min (07/15/23 9:00 AM) 15 br/min *L* (07/15/23 6:46 AM) 16 br/min (07/15/23 6:16 AM) Temperature [96.8-100.4 DegF] 98.9 DegF (07/15/23 4:11 AM) 98.9 DegF (07/15/23 4:07 AM) 98.3 DegF (07/15/23 3:58 AM) Mode of Delivery (Oxygen) Room air (07/15/23 5:47 AM) Room air (07/15/23 4:11 AM) Room air (07/15/23 4:07 AM) Blood pressure sites Arm, left (07/15/23 5:47 AM) Arm, left (07/15/23 4:11 AM) Arm, left (07/15/23 4:07 AM) Temperature Route Oral (07/15/23 4:11 AM) Oral (07/15/23 4:07 AM) Oral (07/15/23 3:58 AM) Dry Weight 95 kg (07/15/23 4:11 AM) 95 kg (07/15/23 4:07 AM) Weight Obtained Via Patient/family state d (07/15/23 4:11 AM) Patient/family stated (07/15/23 4:07 AM) Dry Weight Obtained Via Patient/family s tated (07/15/23 4:11 AM) Patient/family stated (07/15/23 4:07 AM) Social History Social History Type Response [...] * Event Display: ECG 12-Lead Authored Date: [id number] Please click on pdf link to open report * Event Display: ECG 12-Lead Authored Date: [id number] Ventricular Rate: 82 BPM Atrial Rate: 82 BPM P-R Interval: 130 ms QRS Duration: 86 ms Q-T Interval: 404 ms QTC Calculation(Bazett): 472 ms P Catano: 39 degrees R Catano: 36 degrees T Catano: 53 degrees Normal sinus rhythm Normal ECG When compared with ECG of 27-JUN-2023 09:14, No significant change was found Confirmed by CHRISSY SHEEHAN MD ([id number]) on 07/15/2023 8:26:33 AM [place]: CHRISSY SHEEHAN MD Note * Chrissy Sanford MD J: PERFORM Event Display: Patient Education Leaflets Authored Date: [id number] Diet for Vomiting or Diarrhea (Adult) ?? [id number] Diet for Vomiting or Diarrhea (Adult) Your symptoms may return or get worse after eating certain foods listed below. If this happens, stop eating these foods until your symptoms ease and you feel better. Once the vomiting stops, follow the steps below.?? During the first 12 to 24 hours During the first 12 to 24 hours, follow this diet: ??? Drinks.??Have plain water, sports drinks (like electrolyte solutions), drinks without caffeine, mineral water (plain or flavored), and clear fruit juices. Don't have drinks with caffeine or citrus juices. This is because they are high in acid and can irritate your stomach. ??? Soups. Have clear broth. ??? Desserts. Have plain gelatin, frozen ice pops, and fruit juice bars without pieces of fruit. As you feel better, you may add 6??to 8 ounces of yogurt per day. If you have diarrhea, don't have??foods or drinks with sugar, high-fructose corn syrup, or sugar alcohols. ?? During the next 24 hours During the next 24 hours, you may add these to the above: ??? Hot cereal, plain toast, bread, rolls, and crackers ??? Plain noodles, rice, mashed potatoes, and chicken noodle or rice soup ??? Unsweetened canned fruit (not pineapple) and bananas Don't eat more than??15 grams of fat a day. Do this by staying away from margarine, butter, oils, mayonnaise, sauces, gravies, fried foods, peanut butter, meat, poultry, and fish. Don't eat much fiber. Stay away from??raw or cooked vegetables, fresh fruits (except bananas), and bran cereals. Limit how much??caffeine and chocolate you have. Don't use any??spices or seasonings except salt. ?? During the next 24 hours Slowly go back to your normal diet, as you feel better and your symptoms ease. ?? Last Reviewed Date: 2022 ?? [id number] [employer]. All rights reserved. This information is not intended as a substitute for professional medical care. Always follow your healthcare professional's instructions. ?? * Clariebl WILCOX, Chrissy Anderson: PERFORM Event Display: Patient Education Leaflets Authored Date: [id number] Vomiting (Adult) ?? [id number] Vomiting (Adult) Vomiting is a common symptom [...] soap and clean, running water or alcohol-based expeditionary force combat skills to keep from spreading the infection to [...] symptoms ?? Last Reviewed Date: 2021 ?? [id number] [employer]. All rights reserved. This information is not intended as a substitute for professional medical care. Always follow your healthcare professional's instructions. ?? * Chrissy Sanford MD: PERFORM Event Display: Patient Education Leaflets Authored Date: [id number] Unknown Causes of Abdominal Pain(Adult) ?? [id number] Unknown Causes of Abdominal Pain(Adult) The exact cause of your belly (abdominal) pain is not clear. Your exam and tests don't suggest a dangerous cause at this time. This does not mean that this is something to worry about. Everyone likesto know the exact cause of the problem. But sometimes with belly pain, there is no clear-cut cause,and this could be a good thing. Your symptoms can be treated, and you should feel better.?? Your condition does not seem serious now. But sometimes the signs of a serious problem may take more time to appear. For this reason,??it's important for you to watch for any new symptoms, problems,??or worsening of your condition. Over the next few days, the abdominal pain may come and go. Or it may be constant. Other common symptoms can include nausea and vomiting. Sometimes it can be difficult to tell if you feel nauseous. You may just feel bad and not connect that feeling to nausea. Constipation, diarrhea, and a fever maygo along with the pain. The pain may continue even if treated correctly over the following days. Depending on how things go, sometimes the cause can become clear and you may need more??or different treatment. You may also need other evaluations, medicines, or tests. Home care Your healthcare provider may prescribe medicine for pain, symptoms, or an infection. ??Follow the healthcare provider's instructions for taking these medicines. General care ??? Rest as much as you can until your next exam. No strenuous activities. ??? Try to not do anything that may have caused your symptoms. This might be not taking any medicines unless otherwise directed by your healthcare provider. It might be not eating certain foods or doing certain activities. ??? Find positions that ease discomfort. A small pillow placed on your belly may help relieve pain. ??? Something warm on your belly such as a heating pad may help, but be careful not to burn yourself. Diet ??? Don???t??force yourself to eat, especially if having cramps, vomiting, or diarrhea. ??? Water is important so you don't get dehydrated. Soup may also be good. Sports drinks may also help, especially if they are not too acidic. Don't drink sugary drinks as this can make things worse. Take liquids in small amounts. Don???t??guzzle them. ??? Caffeine sometimes makes the pain and cramping worse. ??? Don???t take??dairy products if you have vomiting or diarrhea. ??? Don't eat large amounts at a time. Eat several small meals during the day instead of 2 or 3 larger meals. Wait a few minutesbetween bites. ??? Eat a diet low in fiber (called a low-residue diet). Foods allowed include refined breads, white rice, fruit and vegetable juices without pulp, tender meats. These foods will pass more easily through the intestine. ??? Don???t have??whole-grain foods, whole fruits and vegetables,meats, seeds and nuts, fried or fatty foods, dairy, alcohol and spicy foods until your symptoms go away. ?? Follow-up care Follow up with your healthcare provider, or as advised, if your pain does not begin to improve in the next 24 hours. ?? Call 911 Call?? 911 if any of these occur: ??? Trouble breathing ??? Confusion ??? Fainting or loss of consciousness ??? Rapid heart rate ??? Seizure ?? When to seek medical advice Call your healthcare provider right away if any of these occur: ??? Pain gets worse or moves to theright lower abdomen ??? New or worsening vomiting or diarrhea ??? Swelling of the abdomen ??? Unable to pass stool for more than??3 days ??? Fever of 100.4??F (38??C) or higher, or as directed by your healthcare provider ??? Blood in vomit or bowel movements (dark red or black color) ??? Yellow color of eyes and skin (jaundice) ??? Weakness, dizziness ??? Chest, arm, back, neck, or jaw pain ??? Can't keep down medicines, liquids, or water because of too much vomiting ??? If you have a vagina: unexpected vaginal bleeding or missed period ?? Last Reviewed Date: 2021 ?? [id number] [employer]. All rights reserved. This information is not intended as a substitute for professional medical care. Always follow your healthcare professional's instructions. ?? Patient Care team information Care Team Personnel Name: Dash WILCOX ([place]) , Paola Anderson Position: [facility] Outreach Member Role: PCP Address: Address: [address] [place] [phone] [place] Name: Daina Ibrahim RN Position: [facility] [...] O RN Position: [facility] STORE PROTECTION SPECIALIST Member Role: Primary Care Nurse Name: Alina Castillo NP Position: [facility] Associate Professional Member Role: Primary Care Nurse Address: Address: [address] [facility] [place] [address]- [place] Name: Mary Anne Kilpatrick RN Position: [facility] MR W/ Merge Member Role: Primary Care Nurse Name: Nicole Hernández RN Position: [facility] RN Member Role: Primary Care Nurse Name: Lindsay Srinivasan CNM Position: [facility] Entry Level Financial Analyst Member Role: Primary Care Nurse Address: Address: [address] [place] [address] [place] [address]- [place] Name: Larissa Olson [place] Position: [facility] RN Member Role: Primary Care Nurse Name: Karen Roa RN Position: [facility] ED RN W/OE and Tasks Member Role: Primary Care Nurse Name: Mary Alice Stevens RN Position: [facility] RN Member Role: Primary Care Nurse Name: Beverly Grey Position: [facility] RN Member Role: Primary Care Nurse Name: Alexy Geronimo RN Position: [facility] RN Member Role: Primary Care Nurse Name: Raúl Rudolph DO Position: [facility] PRIVATE EQUITY ASSOCIATE MD Member Role: [employer] PRIVATE EQUITY ASSOCIATE Physician Address: Address: [address] [facility] [place] [address]- [place] Name: Evelyn Haynes RN Position: [facility] RN Member Role: Primary Care Nurse Name: Crissy Metzger RN Position: [facility] RN Member Role: Primary Care Nurse Name: Elisa Gilbert RN Position: [facility] RN Member Role: Primary Care Nurse Name: Osmin RNCorina Position: [facility] AMB Nurse Member Role: Primary Care Nurse Name: Shawnee Lane RN Position: [facility] ED RN W/OE and Tasks Member Role: Primary Care Nurse Name: Erna Douglass RN Position: [facility] SN RN Member Role: Primary Care Nurse Name: Keyana Ndiaye RN Position: [facility] Enterprise Security Architect Member Role: Primary Care Nurse Name: Anabella Nicholson RN Position: [facility] AMB Nurse Member Role: Primary Care Nurse Name: Brenda Tomas RN Position: [facility] Outreach Member Role: Primary Care Nurse Name: Ramona Ybarra RN Position: [facility] RN Member Role: Primary Care Nurse Address: Address: [address] [place] [address]- Name: Nancy Gallagher RN Position: [facility] Enterprise Security Architect Member Role: Primary Care Nurse Name: Evelyn [...] RN Member Role: Primary Care Nurse Name: Savanah Parsons Position: [facility] ED OA Member Role: Patient Care Provider Name: Matt Keen Position: [facility] ED TA [facility] Member Role: Patient Care Provider Name: Chrissy Sanford MD Position: [facility] ED Medicine MD Member Role: ED Attending Physician Address: Address: [address] [place] [address] [place] [address]- [place] Name: Lucinda Cooper RN Position: [facility] ED RN W/OE and Tasks Member Role: Patient Care Provider Care Team Related Persons Name: BARTOLOME IBRAHIM Address: home [address], [place] Name: GIANLUCA IBRAHIM Address: [address] [place], [place] Name: ABBIE IBRAHIM Address: [address], [place] Name: SIM CERDA Name: DIANE CERDA Address: home [address] [place] [id number] Name: SOLO CORRIGAN Address: [address] [place] [address] Name: SOLO FLORES Address: [address] [place] [address] Name: RAYMUNDO MAYFIELD Address: [address] [place] [address]
--- OUTSIDE RECORDS SUMMARY | 2024-01-27 11:27 | XMS_ITS | Continuity of Care Document ---
Author Organization [facility] Address [address] [place] [address]- Care Team Providers Care Core Rescuer Name Role Phone Maranda WILCOX, Silvio Martinez Primary Care Physician Encounter [facility] Date(s): 05/16/20 - 06/20/20 [facility] [address] [place] [address]- [facility] Attending Physician: Jolynn Park MD Admitting Physician: Jolynn Park MD Allergies, Adverse Reactions, Alerts Substance Reaction [...] mL, Refills 11, Tot. Refills 11, Maintenance, [facility]: [id number], 05/08/20 16:20:00 EDT, Supply, 169, cm, 04/15/20 [...] 1 Refills, Maintenance, 10/21/19 11:17:00 EST, [facility] #[id number], 1 capsule By Mouth 3 times a [...] 04/09/21 14:58:00 EDT, 04/09/20 14:57:00 EDT, Tablet, [facility] #[id number], 169, cm, 04/05/20 12:55:00 EDT, Height, 85, [...] 3 Refills, Maintenance, 05/28/20 11:56:00 EDT, [facility] #[id number], 170, cm, 05/27/20 0:11:00 EDT, Height,90.4, kg, [...] Acute 04/30/21 16:58:00 EDT, 04/30/20 16:57:00 EDT, [facility] #[id number], 169, cm, 04/15/20 17:38:00 EDT, Height, 85, kg, 03/15/20 2:33:00 EDT, Dry Weight Start Date: 04/30/20 Stop Date: 04/30/21 Status: Ordered methylprednisolone 2 gm injectable powder for injection See Instructions, inject 4 grams IM for adrenal crisis, # 48 Gm, 11 Refills, Acute 06/08/21 12:08:00 EDT, 05/03/21 10:04:00 EDT, [facility]/pharm[facility] #[id number], 169, cm, 04/15/20 17:38:00 EDT, Height, 85, kg, 03/15/20 2:33:00 EDT, Dry Weight Start Date: 05/03/21 Stop Date: 06/08/21 Status: Ordered methylprednisolone 2 gm injectable powder for injection See Instructions, inject 4 grams IM for adrenal crisis, # 48 Gm, 3 Refills, Acute 05/03/21 10:04:00EDT, 05/03/20 10:03:00 EDT, [facility] #[id number], 169, cm, 04/15/20 17:38:00 EDT, Height, 85, kg, 03/15/20 2:33:00 EDT, Dry Weight Start Date: 05/03/20 Stop Date: 05/03/21 Status: Ordered methylprednisolone 2 gm injectable powder for injection See Instructions, inject 4 grams IM for adrenal crisis, # 48 Gm, 3 Refills, Acute 05/03/21 11:58:00EDT, 05/03/21 10:04:00 EDT, [facility], 169, cm, 04/15/20 17:38:00 EDT, [...] 0 Refills, Maintenance, 06/18/20 16:48:00 EDT, Tablet, [facility] #[id number], 170, cm, 06/18/20 15:14:00 EDT, Height, 90.4, [...] 11 Refills, Soft Stop, 05/03/20 16:07:00 EDT, [facility] #[id number], 169, cm, 04/15/20 17:38:00 EDT, Height, 85, [...] Refills, Maintenance, 12/05/19 20:49:00 EDT, DIS Tablet, [facility] #[id number], 170, cm, 12/05/19 19:19:00 EDT, Height, 88.7, [...]
--- OUTSIDE RECORDS SUMMARY | 2024-01-27 11:27 | XMS_ITS | Continuity of Care Document ---
Author Organization [facility] Address [address] [place] [address]- Care Team Providers Care Anthropologist Physical Name Role Phone Dash WILOCX (DE), Paola Anderson Primary Care Physician Encounter [facility] Date(s): 05/27/23 - 06/26/23 [facility] [address] [place] [address]- Allergies, Adverse Reactions, Alerts Substance Reaction Severity [...] tablet, 3 Refills, Maintenance, 08/17/22 15:43:00 EST, [facility] #[id number], 170, cm, 05/13/22 17:18:00 EDT, Height, 88.8, [...] 01/08/21 13:59:00 EDT, Route to Pharmacy Electronically, [facility] #[id number], Partial fill upon patient request if the prescription is for a sched... Start Date: 01/08/21 Status: Ordered Flonase 50 mcg/inh nasal spray 2 sprays, Nares, Both, 2 times a day, PRN Congestion, # 16 Gm, 0 Refills, Maintenance, 08/20/20 11:17:00 EST, [place], [facility] #[id number], Partial fill upon patient request if the prescriptionis for a schedule II opioid drug., 170, cm, ... Start Date: 08/20/20 Status: Ordered gabapentin 300 mg oral capsule See Instructions, 1 cap in the AM, 2 in the afternoon and 2 at bedtime, # 1 each, Refills 4, Tot. Refills 4, Maintenance, 11/11/22 15:13:00 EST, Instructions Replace Required Details, Route to Pharmacy Electronically, [facility] #[id number], Part... Start Date: 11/11/22 Status: Ordered Insulin [...] 05/14/23 20:59:00 EDT, Route to Pharmacy Electronically, [facility] #[id number], Partial fill upon patient request if the [...] 0 Refills, Maintenance, 05/13/23 10:33:00 EDT, Tablet, [facility] #[id number], Partial fill upon patient request if the prescription is for a schedule II opioid drug., 1... Start Date: 05/13/23 Stop Date: 05/16/23 Status: Ordered prazosin 2 mg oral capsule 2 capsule = 4 mg, By Mouth, Daily at bedtime, if PO intake is low or BP low below 110/70 only take one cap, # 60 capsule, 4 Refills, Maintenance, 11/11/22 15:17:00 EST, [facility] #[id number], Partial fill upon patient request if the [...] 03/10/23 15:36:00 EDT, Route to Pharmacy Electronically, [facility] #[id number], Partial fill upon patient request if the [...] Refills, Soft Stop, 05/27/23 14:16:00 EDT, Powder, [facility] #[id number], Partial fill upon patient... Start Date: 05/27/23 Status: Ordered spironolactone 25 mg oral tablet 25 mg, 1, tablet, By Mouth, Daily, # 30 tablet, Refills 3, Tot. Refills 3, Maintenance, 05/14/23 20:55:00 EDT, Route to Pharmacy Electronically, [facility] #[id number], Partial fill upon patientrequest if the prescription [...] Dash WILCOX (DE) , Paola Anderson Position: [facility] Outreach Member Role: PCP Address: Address: [address] [place] [id number] [place] Name: Daina Ibrahim RN Position: [facility] ED RN W/OE and Tasks Member Role: Primary Care Nurse Name: Madeline Baird RN Position: [facility] ED RN W/OE and Tasks Member Role: Primary Care Nurse Name: Teresa Carpio Position: S RN Member Role: Primary Care Nurse Name: Inge Elizabeth RN Position: [facility] SN RN Member Role: Primary Care Nurse Name: Kelley Prasad RN Position: [facility] RN Member Role: Primary Care Nurse Name: Cindy Medeiros RN Position: [facility] RN Member Role: Primary Care Nurse Name: Linnette De La O RN Position: [facility] MOBILE HOME INSTALLER Member Role: Primary Care Nurse Name: Alina Castillo NP Position: [facility] Associate Professional Member Role: Primary Care Nurse Address: Address: [address] [facility] [place] [address]- [place] Name: Mary Anne Kilpatrick RN Position: [facility] MR W/ Merge Member Role: Primary Care Nurse Name: Nicole Hernández RN Position: [facility] RN Member Role: Primary Care Nurse Name: Lindsay Srinivasan CNM Position: [facility] Mental Health Professional Member Role: Primary Care Nurse Address: Address: [address] [place] [address]- [place] Name: Larissa Olson [place] Position: [facility] RN Member Role: Primary Care Nurse Name: Karen Roa RN Position: [facility] ED RN W/OE and Tasks Member Role: Primary Care Nurse Name: Mary Alice Stevens RN Position: [facility] RN Member Role: Primary Care Nurse Name: Beverly Grey Position: [facility] RN Member Role: Primary Care Nurse Name: Alexy Geronimo RN Position: [facility] RN Member Role: Primary Care Nurse Name: Raúl Rudolph DO Position: [facility] BATTERY VENT PLUG INSERTER MD Member Role: [employer]etime BATTERY VENT PLUG INSERTER Physician Address: Address: [address] [facility] [place] [address]- [place] Name: Evelyn Haynes RN Position: [facility] RN Member Role: Primary Care Nurse Name: Crissy Metzger RN Position: [facility] RN Member Role: Primary Care Nurse Name: Elisa Gilbert RN Position: [facility] RN Member Role: Primary Care Nurse Name: Corina Solorio RN Position: [facility] AMB Nurse Member Role: Primary Care Nurse Name: Shawnee Lane RN Position: [facility] ED RN W/OE and Tasks Member Role: Primary Care Nurse Name: Erna Douglass RN Position: [facility] SN RN Member Role: Primary Care Nurse Name: Keyana Ndiaye RN Position: [facility] Dance Historian Member Role: Primary Care Nurse Name: Anabella Nicholson RN Position: [facility] AMB Nurse Member Role: Primary Care Nurse Name: Brenda Tomas RN Position: [facility] Outreach Member Role: Primary Care Nurse Name: Ramona Ybarra RN Position: [facility] RN Member Role: Primary Care Nurse Address: Address: [address] [place] [id number] Name: Nancy Gallagher RN Position: [facility] Dance Historian Member Role: Primary Care Nurse Name: Evelyn Allen RN Position: [facility] OB RN Member Role: Primary Care Nurse Name: Jackelin Watt RN Position: [facility] RN Member Role: Primary Care Nurse Name: Raymundo Elizabeth RN Position: [facility] SN RN Member Role: Primary Care Nurse Name: Opal Calderon RN Position: [facility] RN Member Role: Primary Care Nurse Name: Timmy RNYadiel Position: [facility] SN RN Member Role: Primary Care Nurse Care Team Related Persons Name: BARTOLOME IBRAHIM Address: [address] [place] [address] Name: GIANLUCA IBRAHIM Address: home [address] [place] [address] Name: ABBIE IBRAHIM Address: home [address] [place] [address] Name: SIM CERDA Name: DIANE CERDA Address: home [address] [place] [address] Name: SOLO CORRIGAN Address: home [address] [place] [address] Name: SOLO FLORES Address: home [address] [place] [address] Name: RAYMUNDO MAYFIELD Address: home [address] [place] [address]
--- OUTSIDE RECORDS SUMMARY | 2024-01-27 11:27 | XMS_ITS | Continuity of Care Document ---
Author Organization [facility] Address [address] [place] [address]- Care Team Providers Care Dressage Instructor Name Role Phone Bienvenido WILCOX, Agustín Joaquin Primary Care Physician Encounter [facility] Date(s): 06/09/22 - 07/09/22 [facility] [address] [place] [address]- Allergies, Adverse Reactions, Alerts Substance Reaction Severity [...] tablet, 4 Refills, Maintenance, 02/04/22 8:07:00 EDT, [facility] #[id number], Partial fill upon patient request if the prescription is for a schedule II opioid drug., 170, cm, 01/21/22 12:57:00 EDT, Height... Start Date: 02/04/22 Stop Date: 07/04/22 Status: Ordered busPIRone 15 mg oral tablet 1 tablet = 15 mg, By Mouth, 3 times a day, # 90 tablet, 4 Refills, Maintenance, 02/04/22 8:08:00 EDT, Tablet, [facility] #[id number], Partial fill upon patient request if the prescription is fora schedule II opioid drug., 170, cm, 01/21/22 12:57... Start Date: 02/04/22 Stop Date: 07/04/22 Status: Ordered famotidine 20 mg oral tablet 20 mg, 1, tablet, By Mouth, 2 times a day, # 180 tablet, Refills 0, Tot. Refills 0, Maintenance, 01/08/21 13:59:00 EDT, Route to Pharmacy Electronically, [facility] #[id number], Partial fill upon patient request if the prescription is for a sched... Start Date: 01/08/21 Status: Ordered Flonase 50 mcg/inh nasal spray 2 sprays, Nares, Both, 2 times a day, PRN Congestion, # 16 Gm, 0 Refills, Maintenance, 08/20/20 11:17:00 EST, [place], [facility] #[id number], Partial fill upon patient request if the [...] 09/25/22 15:38:00 EST, Route to Pharmacy Electronically, [facility] #[id number], Partial fill upon patient request if the prescription is for a sched... Start Date: 09/25/22 Stop Date: 1/1/24 Status: Ordered isosorbide mononitrate 30 mg oral tablet, extended release 30 mg, 1, tablet, By Mouth, Daily in AM, for 90 days, # 90 tablet, Refills 3, Tot. Refills 3, Hard Stop 09/25/22 15:38:00 EST, 09/30/21 15:38:00 EST, Route to Pharmacy Electronically, [facility] #[id number], Partial fill upon patient request if t... Start Date: 09/30/21 Stop Date: 09/25/22 Status: Ordered KlonoPIN 1 mg oral tablet 1 tablet = 1 mg, By Mouth, 2 times a day, dose is BID, # 60 tablet, 0 Refills, Maintenance, 07/02/22 13:40:00 EDT, [facility] #[id number], NO EARLY REFILLS, 170, cm, 05/13/22 17:18:00 EDT, Height, 88.8, kg, 05/13/22 17:18:00 EDT, Dry Weight Start Date: 07/02/22 Stop Date: 08/01/22 Status: Ordered lidocaine 1.8% topical film 1 patch, Topically, Daily, leave on up to 12 hours, # 30 each, 0 Refills, Maintenance, 08/24/19 8:56:45 EST, Film Start Date: 08/24/19 Status: Ordered Metoprolol Tartrate 50 mg oral tablet 1.5 tablet = 75 mg, By Mouth, 2 times a day, Take 75 mg twice daily, # 270 tablet, 3 Refills, Maintenance, 09/13/22 16:21:00 EST, Tablet, [facility] #[id number], Partial fill upon patient request if the prescription is for a schedule II opioid dr... Start Date: 09/13/22 Stop Date: 09/08/23 Status: Ordered Metoprolol Tartrate 50 mg oral tablet 1.5 tablet = 75 mg, By Mouth, 2 times a day, for 90 days, Take 75 mg twice daily, # 270 tablet, 3 Refills, Hard Stop 09/13/22 16:21:00 EST, 09/18/21 16:21:00 EST, Tablet, [facility] #[id number],Partial fill upon patient request if the prescripti... Start Date: 09/18/21 Stop Date: 09/13/22 Status: Ordered nitroglycerin 0.4 mg sublingual tablet 1 tablet = 0.4 mg, Sublingual, Every 5 minutes, PRN as needed for chest pain, not to exceed 3 doses/15 min--if pain persists, seek medical attention, # 100 tablet, 3 Refills, Maintenance, 10/16/21 11:32:00 EST, Tablet, [facility] #[id number], Par... Start Date: 10/16/21 Stop Date: 02/13/22 Status: Ordered ondansetron 8 mg oral tablet, disintegrating 1 tablet = 8 mg, By Mouth, 3 times a day, PRN Nausea & Vomiting, # 30 tablet, 0 Refills, Maintenance, 12/26/20 12:55:00 EDT, [facility] #[id number], Partial fill upon patient request if the prescription is for a schedule II opioid drug., 170, cm,... Start Date: 12/26/20 Status: Ordered oxyCODONE 10 mg oral tablet = 10 mg, By Mouth, Every 8 hours, as needed; on a 15/month taper, # 60 tablet, 0 Refills, Maintenance, 03/24/21 11:54:00 EDT, Tablet, [facility] #[id number], Partial fill upon patient request ifthe prescription [...] capsule, 4 Refills, Maintenance, 02/04/22 8:06:00 EDT, [facility] #[id number], Partial fill upon patient request if the [...] Refills, Soft Stop, 04/20/22 10:54:00 EDT, Powder, [facility] #[id number], Partial fill upon patient... Start Date: 04/20/22 Status: Ordered spironolactone 25 mg oral tablet 25 mg, 1, tablet, By Mouth, Daily, # 90 tablet, Refills 3, Tot. Refills 3, Maintenance, 09/13/22 16:11:00 EST, Route to Pharmacy Electronically, [facility] #[id number], Partial fill upon patientrequest if the prescription is for a schedule II op... Start Date: 09/13/22 Stop Date: 09/08/23 Status: Ordered spironolactone 25 mg oral tablet 25 mg, 1, tablet, By Mouth, Daily, for 90 days, # 90 tablet, Refills 3, Tot. Refills 3, Hard Stop 09/13/22 16:11:00 EST, 09/18/21 16:11:00 EST, Route to Pharmacy Electronically, [facility] #[id number], Partial fill upon patient request if the pre... Start Date: 09/18/21 Stop Date: 09/13/22 Status: Ordered traZODone 150 mg oral tablet 1 tablet = 150 mg, By Mouth, Daily at bedtime, # 30 tablet, 0 Refills, Maintenance, 07/02/22 13:45:00 EDT, Tablet, [facility] #[id number], Partial fill upon patient request if the prescription is for a schedule II opioid drug., 170, cm, 05/13/22... Start Date: 07/02/22 Stop Date: 08/01/22 Status: Ordered Wheelchair See Instructions, # 1 [...] Active Un known Patient Care team information Personnel Name: Agustín Faria MD Address: Address: [address] [facility] [address] Agustín Faria MD [place], [place] [address]
--- OUTSIDE RECORDS SUMMARY | 2024-01-27 11:28 | XMS_ITS | Continuity of Care Document ---
Author Organization [facility] Address [address] [place] [address]- Care Team Providers Care Gun Synchronizer Name Role Phone Mariella OCAMPO, Amelia Primary Care Physician Encounter [facility] Date(s): 03/08/20 - 03/12/[address] [address]- [facility] Discharge Disposition: A-D/C Home Attending Physician: Aleksandr Bonilla MD Admitting Physician: Travis Etienne MD Referring Physician: Not on Staff, Referring [...] capsule, 1 Refills, Maintenance, 10/21/19 11:17:00 EST, [facility] #[id number], 1 capsule By Mouth 3 times a [...] Maintenance,03/12/20 11:30:00 EDT, Route to Pharmacy Electronically, [facility], 169, cm, 03/12/20 8:11:00 EDT, [...] Refills, Maintenance, 12/05/19 20:49:00 EDT, DIS Tablet, [facility] #[id number], 170, cm, 12/05/19 19:19:00 EDT, Height, 88.7, [...] Range]: 1 2 3 Height 169 cm (03/12/20 8:11 AM) 169 cm (03/12/20 2:09 AM) 169 cm (03/11/20 7:59 PM) Weight 85.6 kg (03/12/20 2:09 AM) 85.2 kg (03/11/20 4:40 AM) 85.2 kg (03/10/20 2:19 AM) Oxygen Saturation [94-100 %] 99 % (03/12/20 8:11 AM) 94 % (03/12/20 2:09 AM) 94 % (03/11/20 7:59 PM) Pulse Rate [55-90 bpm] 61 bpm (03/12/20 8:11 AM) 55 bpm (03/12/20 2:09 AM) 60 bpm (03/11/20 7:59 PM) Body Mass Index [18.5-24.99] 29.97 *H* (03/12/20 2:09 AM) 29.83 *H* (03/10/20 2:19 AM) 29.94 *H* (03/09/20 2:53 AM) Blood Pressure [90-138/55-84 mm Hg] 114/57mm Hg (03/12/20 8:11 AM) 94/45mm Hg (03/12/20 2:09 AM) 101/52mm Hg (03/11/20 7:59 PM) Respiratory Rate [16-30 br/min] 18 br/min (03/12/20 1:24 PM) 18 br/min (03/12/20 8:11 AM) 18 br/min (03/12/20 6:17 AM) Temperature [96.8-100.4 DegF] 98.0 DegF (03/12/20 8:11 AM) 98.5 DegF (03/12/20 2:09 AM) 98.4 DegF (03/11/20 7:59 PM) Mode of Delivery (Oxygen) Room air (03/12/20 8:11 AM) Room air (03/12/20 2:09 AM) Room air (03/11/20 7:59 PM) Blood pressure sites Arm, left (03/12/20 8:11 AM) Arm, right (03/12/20 2:09 AM) Arm, left (03/11/20 7:59 PM) Temperature Route Oral (03/12/20 8:11 AM) Oral (03/12/20 2:09 AM) Oral (03/11/20 7:59 PM) Dry Weight 85.2 kg (03/08/20 10:10 PM) Weight Obtained Via Bed scale (03/12/20 2:09 AM) Bed scale (03/10/20 2:19 AM) Bed scale (03/09/20 2:53 AM) Social History Social History Type Response Smoking Status 10 or more cigarette s (1/2 pack or more)/day in last 30 days entered on: 08/06/19 Sex
--- OUTSIDE RECORDS SUMMARY | 2024-01-27 11:28 | XMS_ITS | Continuity of Care Document ---
Author Organization [facility] Address [address] [place] [address]- Care Team Providers Care Sterile Proc Tech Name Role Phone Bienvenido WILCOX, Agustín Joaquin Primary Care Physician Encounter [facility] Date(s): 06/08/22 - 07/08/22 [facility] [address] [place] [address]- Allergies, Adverse Reactions, Alerts Substance Reaction Severity [...] tablet, 4 Refills, Maintenance, 02/04/22 8:07:00 EDT, [facility] #[id number], Partial fill upon patient request if the prescription is for a schedule II opioid drug., 170, cm, 01/21/22 12:57:00 EDT, Height... Start Date: 02/04/22 Stop Date: 07/04/22 Status: Ordered busPIRone 15 mg oral tablet 1 tablet = 15 mg, By Mouth, 3 times a day, # 90 tablet, 4 Refills, Maintenance, 02/04/22 8:08:00 EDT, Tablet, [facility] #[id number], Partial fill upon patient request if the prescription is fora schedule II opioid drug., 170, cm, 01/21/22 12:57... Start Date: 02/04/22 Stop Date: 07/04/22 Status: Ordered famotidine 20 mg oral tablet 20 mg, 1, tablet, By Mouth, 2 times a day, # 180 tablet, Refills 0, Tot. Refills 0, Maintenance, 01/08/21 13:59:00 EDT, Route to Pharmacy Electronically, [facility] #[id number], Partial fill upon patient request if the prescription is for a sched... Start Date: 01/08/21 Status: Ordered Flonase 50 mcg/inh nasal spray 2 sprays, Nares, Both, 2 times a day, PRN Congestion, # 16 Gm, 0 Refills, Maintenance, 08/20/20 11:17:00 EST, [place], [facility] #[id number], Partial fill upon patient request if the [...] 09/25/22 15:38:00 EST, Route to Pharmacy Electronically, [facility] #[id number], Partial fill upon patient request if the prescription is for a sched... Start Date: 09/25/22 Stop Date: 1/1/24 Status: Ordered isosorbide mononitrate 30 mg oral tablet, extended release 30 mg, 1, tablet, By Mouth, Daily in AM, for 90 days, # 90 tablet, Refills 3, Tot. Refills 3, Hard Stop 09/25/22 15:38:00 EST, 09/30/21 15:38:00 EST, Route to Pharmacy Electronically, [facility] #[id number], Partial fill upon patient request if t... Start Date: 09/30/21 Stop Date: 09/25/22 Status: Ordered KlonoPIN 1 mg oral tablet 1 tablet = 1 mg, By Mouth, 2 times a day, dose is BID, # 60 tablet, 0 Refills, Maintenance, 07/02/22 13:40:00 EDT, [facility] #[id number], NO EARLY REFILLS, 170, cm, 05/13/22 17:18:00 [...] 3 Refills, Maintenance, 09/13/22 16:21:00 EST, Tablet, [facility] #[id number], Partial fill upon patient request [...] 09/13/22 16:21:00 EST, 09/18/21 16:21:00 EST, Tablet, [facility] #[id number],Partial fill upon patient request if the prescripti... Start Date: 09/18/21 Stop Date: 09/13/22 Status: Ordered nitroglycerin 0.4 mg sublingual tablet 1 tablet = 0.4 mg, Sublingual, Every 5 minutes, PRN as needed for chest pain, not to exceed 3 doses/15 min--if pain persists, seek medical attention, # 100 tablet, 3 Refills, Maintenance, 10/16/21 11:32:00 EST, Tablet, [facility] #[id number], Par... Start Date: 10/16/21 Stop Date: 02/13/22 Status: Ordered ondansetron 8 mg oral tablet, disintegrating 1 tablet = 8 mg, By Mouth, 3 times a day, PRN Nausea & Vomiting, # 30 tablet, 0 Refills, Maintenance, 12/26/20 12:55:00 EDT, [facility] #[id number], Partial fill upon patient request if the prescription is for a schedule II opioid drug., 170, cm,... Start Date: 12/26/20 Status: Ordered oxyCODONE 10 mg oral tablet = 10 mg, By Mouth, Every 8 hours, as needed; on a 15/month taper, # 60 tablet, 0 Refills, Maintenance, 03/24/21 11:54:00 EDT, Tablet, [facility] #[id number], Partial fill upon patient request ifthe prescription [...] capsule, 4 Refills, Maintenance, 02/04/22 8:06:00 EDT, [facility] #[id number], Partial fill upon patient request if the [...] Refills, Soft Stop, 04/20/22 10:54:00 EDT, Powder, [facility] #[id number], Partial fill upon patient... Start Date: 04/20/22 Status: Ordered spironolactone 25 mg oral tablet 25 mg, 1, tablet, By Mouth, Daily, # 90 tablet, Refills 3, Tot. Refills 3, Maintenance, 09/13/22 16:11:00 EST, Route to Pharmacy Electronically, [facility] #[id number], Partial fill upon patientrequest if the prescription is for a schedule II op... Start Date: 09/13/22 Stop Date: 09/08/23 Status: Ordered spironolactone 25 mg oral tablet 25 mg, 1, tablet, By Mouth, Daily, for 90 days, # 90 tablet, Refills 3, Tot. Refills 3, Hard Stop 09/13/22 16:11:00 EST, 09/18/21 16:11:00 EST, Route to Pharmacy Electronically, [facility] #[id number], Partial fill upon patient request if the pre... Start Date: 09/18/21 Stop Date: 09/13/22 Status: Ordered traZODone 150 mg oral tablet 1 tablet = 150 mg, By Mouth, Daily at bedtime, # 30 tablet, 0 Refills, Maintenance, 07/02/22 13:45:00 EDT, Tablet, [facility] #[id number], Partial fill upon patient request if the [...] Name: Agustín Faria MD Address: Address: [address] [facility] [address] Agustín Faria [place], [place] [address]
--- OUTSIDE RECORDS SUMMARY | 2024-01-27 11:28 | XMS_ITS | Continuity of Care Document ---
Author Organization [facility] Address [address] [place] [address]- Care Team Providers Care Sole Dyer Name Role Phone Maranda WILCOX, Silvio Martinez Primary Care Physician Encounter [facility] Date(s): 04/29/20 - 05/29/20 [facility] [address] [place] [address]- [facility] Allergies, Adverse Reactions, Alerts Substance [...] mL, Refills 11, Tot. Refills 11, Maintenance, [facility]: [id number], 05/08/20 16:20:00 EDT, Supply, 169, cm, 04/15/20 [...] capsule, 1 Refills, Maintenance, 10/21/19 11:17:00 EST, [facility] #[id number], 1 capsule By Mouth 3 times a [...] 04/09/21 14:58:00 EDT, 04/09/20 14:57:00 EDT, Tablet, [facility] #[id number], 169, cm, 04/05/20 12:55:00 EDT, Height, 85, [...] tablet, 3 Refills, Maintenance, 05/28/20 11:56:00 EDT, [facility] #[id number], 170, cm, 05/27/20 0:11:00 EDT, Height,90.4, kg, [...] Acute 04/30/21 16:58:00 EDT, 04/30/20 16:57:00 EDT, [facility] #[id number], 169, cm, 04/15/20 17:38:00 EDT, Height, 85, kg, 03/15/20 2:33:00 EDT, Dry Weight Start Date: 04/30/20 Stop Date: 04/30/21 Status: Ordered methylprednisolone 2 gm injectable powder for injection See Instructions, inject 4 grams IM for adrenal crisis, # 48 Gm, 11 Refills, Acute 06/08/21 12:08:00 EDT, 05/03/21 10:04:00 EDT, [facility]/pharmacy #[id number], 169, cm, 04/15/20 17:38:00 EDT, Height, 85, kg, 03/15/20 2:33:00 EDT, Dry Weight Start Date: 05/03/21 Stop Date: 06/08/21 Status: Ordered methylprednisolone 2 gm injectable powder for injection See Instructions, inject 4 grams IM for adrenal crisis, # 48 Gm, 3 Refills, Acute 05/03/21 10:04:00EDT, 05/03/20 10:03:00 EDT, [facility] #[id number], 169, cm, 04/15/20 17:38:00 EDT, Height, 85, kg, 03/15/20 2:33:00 EDT, Dry Weight Start Date: 05/03/20 Stop Date: 05/03/21 Status: Ordered methylprednisolone 2 gm injectable powder for injection See Instructions, inject 4 grams IM for adrenal crisis, # 48 Gm, 3 Refills, Acute 05/03/21 11:58:00EDT, 05/03/21 10:04:00 EDT, [facility], 169, cm, 04/15/20 17:38:00 EDT, Height, 85, kg, 03/15/20 2:33:00 EDT, Dry Weight Start Date: 05/03/21 Stop Date: 05/03/21 Status: Ordered morphine 15 mg oral tablet, immediate release 2 tablet = 30 mg, By Mouth, Every 6 hours, PRN for pain, for 5 days, # 12 tablet, 0 Refills, Acute 06/01/20 4:49:00 EDT, 05/27/20 4:49:00 EDT, Tablet, [facility] #[id number], Partial fill upon patient request, 170, cm, 05/27/20 0:11:00 EDT, Jennifer... Start Date: 05/27/20 Stop Date: 06/01/20 Status: Ordered Nicotine = 21 mg, Topically, [...] 11 Refills, Soft Stop, 05/03/20 16:07:00 EDT, [facility] #[id number], 169, cm, 04/15/20 17:38:00 EDT, Height, 85, [...] Refills, Maintenance, 12/05/19 20:49:00 EDT, DIS Tablet, [facility] #[id number], 170, cm, 12/05/19 19:19:00 EDT, Height, 88.7, [...]
--- OUTSIDE RECORDS SUMMARY | 2024-01-27 11:28 | XMS_ITS | Continuity of Care Document ---
Author Organization [facility] Address [address] [place] [address]- Care Team Providers Care Equipment Operator Name Role Phone Mariella OCAMPO, Amelia Primary Care Physician [phone] Encounter [facility] Date(s): 11/28/19 - 12/30/19 [facility] [address] [place] [phone]- [facility] Attending Physician: Jaye OCAMPO, Lamar Cody Admitting Physician: Jaye OCAMPO, Lamar Cody Referring Physician: Amos Appiah MD Allergies, Adverse [...] Stop 02/18/20 11:16:00EDT, 10/21/19 11:16:00 EST, Tablet, [facility] #[id number], 170, cm, 10/20/19 13:48:00 EST, Height, 92.3, kg, 10/15/19 6:38:00 EST, Dry Weight Start Date: 10/21/19 Stop Date: 02/18/20 Status: Ordered atorvastatin 20 mg oral tablet 1 tablet = 20 mg, By Mouth, Daily, # 90 tablet, 1 Refills, Maintenance, 10/21/19 11:16:00 EST, Tablet, [facility] #[id number], 170, cm, 10/20/19 13:48:00 EST, Height, 92.3, [...] 02/21/19 8:58:39 EDT, Route to Pharmacy Electronically, [id number], [facility] Start Date: 02/21/19 Stop Date: 04/22/19 Status: Ordered Creon 36,000 units oral delayed release capsule 1 capsule, By Mouth, 3 times a day, with each meal and snack, # 270 capsule, 1 Refills, Maintenance, 10/21/19 11:17:00 EST, [facility] #[id number], 1 capsule By Mouth 3 times a [...] 08/24/19 9:15:39 EST, Route to Pharmacy Electronically, [id number], [id number], 170, cm, 08/24/19 8:38:44 EST, H... Start [...] 0 Refills, Maintenance, 09/28/19 0:43:00 EST, Tablet, [facility] #[id number], 171, cm, 09/27/19 22:45:00 EST, Height, 92.2, [...] 02/21/19 8:59:46 EDT, Route to Pharmacy Electronically, [id number], [facility] Start Date: 02/21/19 Stop [...] Refills, Maintenance, 12/05/19 20:49:00 EDT, DIS Tablet, [facility] #[id number], 170, cm, 12/05/19 19:19:00 EDT, Height, 88.7, [...]
--- OUTSIDE RECORDS SUMMARY | 2024-01-27 11:28 | XMS_ITS | Continuity of Care Document ---
Author Organization [facility] Address [address] [place] [address]- Care Team Providers Care Operations Dispatcher Name Role Phone Dash WILCOX ([place]), Paola Anderson Primary Care Physician Encounter [facility] Date(s): 10/18/23 - 11/17/23 [facility] [address] [place] [address]- Allergies, Adverse Reactions, Alerts Substance Reaction Severity [...] 0 Refills, Maintenance, 07/15/23 11:42:00 EDT, Tablet, [facility] #[id number], Partial fill upon patient request if the [...] 4 Refills, Maintenance, 08/10/23 14:21:00 EST, Tablet, [facility] #[id number], Partial fill upon patient request if the prescription is fora schedule II opioid drug., 170, cm, 08/05/23 3:21:... Start Date: 08/10/23 Stop Date: 01/07/24 Status: Ordered Metoprolol Tartrate 100 mg oral tablet 1 tablet, By Mouth, 2 times a day, # 60 tablet, 4 Refills, Maintenance, 10/11/23 9:06:00 EST, [facility] #[id number], 170, cm, 09/26/23 11:43:00 EST, Height, 93, [...] 0 Refills, Maintenance, 05/13/23 10:33:00 EDT, Tablet, [facility] #[id number], Partial fill upon patient request if the prescription is for a schedule II opioid drug., 1... Start Date: 05/13/23 Stop Date: 05/16/23 Status: Ordered ondansetron 4 mg oral tablet, disintegrating 1 tablet = 4 mg, By Mouth, Every 6 hours, PRN as needed for nausea/vomiting, # 14 tablet, 0 Refills, Maintenance, 10/13/23 13:52:00 EST, DIS Tablet, [facility] #[id number], Partial fill upon patient request if the prescription is for a schedule I... Start Date: 10/13/23 Status: Ordered potassium chloride 10 mEq oral tablet, extended release 2 tablet = 20 mEq, By Mouth, Daily, # 14 tablet, 0 Refills, Soft Stop, 08/27/23 8:49:00 EST, ER Tablet, [facility] #[id number], Partial fill upon patient request if the [...] capsule, 4 Refills, Maintenance, 08/10/23 14:14:00 EST, [facility] #[id number], Partial fill upon patient request if the [...] Refills, Soft Stop, 05/27/23 14:16:00 EDT, Powder, [facility] #[id number], Partial fill upon patient... Start Date: 05/27/23 Status: Ordered spironolactone 25 mg oral tablet 1, tablet, By Mouth, Daily, # 30 tablet, Refills 0, Maintenance, 09/10/23 16:43:00 EST, Route to Pharmacy Electronically, [facility] #[id number], 170, cm, 08/27/23 7:32:00 EST, Height, 99, kg, 08/18/23 9:13:00 EST, Dry Weight Start Date: 09/10/23 Status: Ordered Wellbutrin SR 100 mg/12 hours oral tablet, extended release 1 tablet = 100 mg, By Mouth, Daily, # 30 tablet, 4 Refills, Maintenance, 08/10/23 14:26:00 EST, [facility] #[id number], Partial fill upon patient request if the [...] information Care Team Personnel Name: Dash WILCOX ([place]) , Paola Anderson Position: [facility] Outreach Member Role: PCP Address: Address: [address] [place] [phone] [place] Name: Daina Ibrahim RN Position: [facility] ED RN W/OE and Tasks Member Role: Primary Care Nurse Name: Madeline Baird RN Position: [facility] ED RN W/OE and Tasks Member Role: Primary Care Nurse Name: Teresa Carpio Position: [facility] RN Member Role: Primary Care Nurse Name: Inge Elizabeth RN Position: [facility] SN RN Member Role: Primary Care Nurse Name: Kelley Prasad RN Position: [facility] ED RN W/OE and Tasks Member Role: Primary Care Nurse Name: Cindy Medeiros RN Position: [facility] RN Member Role: Primary Care Nurse Name: Linnette De La O RN Position: [facility] COMPANY MINER BLASTING Member Role: Primary Care Nurse Name: Alina Castillo NP Position: [facility] Associate Professional Member Role: Primary Care Nurse Address: Address: [address] [place] [address]- [place] Name: Gab Velarde RN Position: [facility] RN Member Role: Primary Care Nurse Name: Mary Anne Kilpatrick RN Position: [facility] MR W/ Merge Member Role: Primary Care Nurse Name: Nicole Hernández RN Position: [facility] RN Member Role: Primary Care Nurse Name: Lindsay Srinivasan CNM Position: [facility] Medical Anthropology Director Member Role: Primary Care Nurse Address: Address: [address] [place] [address]- [place] Name: Bea Brown RN Position: [facility] RN Member Role: Primary Care Nurse Name: Kiana Sabillon RN Position: [facility] RN Member Role: Primary Care Nurse Name: Larissa Olson [place] Position: [facility] RN Member Role: Primary Care Nurse Name: Karen Roa RN Position: [facility] ED RN W/OE and Tasks Member Role: Primary Care Nurse Name: Mary Alice Stevens RN Position: [facility] RN Member Role: Primary Care Nurse Name: Beverly Grey Position: [facility] RN Member Role: Primary Care Nurse Name: Grazyna RNAlexy Position: [facility] ED RN W/OE and Tasks Member Role: Primary Care Nurse Name: Raúl Rudolph DO Position: [facility] PUBLIC HEALTH REPRESENTATIVE MD Member Role: Lifetime PUBLIC HEALTH REPRESENTATIVE Physician Address: Address: [address] [place] [address]- Name: Evelyn Haynes RN Position: [facility] RN Member Role: Primary Care Nurse Name: Crissy Metzger RN Position: [facility] RN Member Role: Primary Care Nurse Name: Elisa Gilbert RN Position: [facility] RN Member Role: Primary Care Nurse Name: Corina Solorio RN Position: [facility] RN Member Role: Primary Care Nurse Name: Shawnee Lane RN Position: [facility] ED RN W/OE and Tasks Member Role: Primary Care Nurse Name: Ana Estrada RN Position: [facility] RN Member Role: Primary Care Nurse Name: Erna Douglass RN Position: [facility] RN Member Role: Primary Care Nurse Name: Keyana Ndiaye RN Position: [facility] Soldering Technician Member Role: Primary Care Nurse Name: Grace Verma RN Position: [facility] RN Member Role: Primary Care Nurse Name: Anabella Nicholson RN Position: [facility] AMB Nurse Member Role: Primary Care Nurse Name: Brenda Tomas RN Position: [facility] Outreach Member Role: Primary Care Nurse Name: Ramona Ybarra RN Position: [facility] RN Member Role: Primary Care Nurse Address: Address: [address] [place] [address]- [place] Name: Nancy Gallagher RN Position: [facility] Soldering Technician Member Role: Primary Care Nurse Name: Evelyn Allen RN Position: [facility] OB RN Member Role: Primary Care Nurse Name: Jackelin Watt RN Position: S RN Member Role: Primary Care Nurse Name: Raymundo Elizabeth RN Position: S SN RN Member Role: Primary Care Nurse Name: Opal Calderon RN Position: S RN Member Role: Primary Care Nurse Name: Yadiel Warner RN Position: [facility] SN RN Member Role: Primary Care Nurse Care Team Related Persons Name: IBRAHIMBARTOLOME Address: [address] [place], [place] Name: GIANLUCA IBRAHIM Address: [address] Name: ABBIE IBRAHIM Address: [address] [place] [address] Name: SIM CERDA Name: DIANE CERDA Address: home [address] [place] [id number] Name: SOLO CORRIGAN Address: home [address] [place] [address] Name: SOLO FLORES Address: [address] Name: RAYMUNDO MAYFIELD Address: [address] [place] [address]
--- OUTSIDE RECORDS SUMMARY | 2024-01-27 11:28 | XMS_ITS | Continuity of Care Document ---
Author Organization [facility] Address [address] [place] [address]- Care Team Providers Care Marble Polisher Name Role Phone Maranda WILCOX, Silvio Martinez Primary Care Physician Encounter [facility] Date(s): 12/05/20 - 01/04/21 [facility] [address] [place] [address]- Allergies, Adverse Reactions, Alerts Substance Reaction Severity [...] Dry Weight Start Date: 05/08/20 Status: Ordered amoxicillin 500 mg oral capsule 1 capsule = 500 mg, By Mouth, 3 times a day, for 6 days, # 18 capsule, 0 Refills, Acute 01/10/21 12:08:00 EDT, 01/04/21 12:08:00 EDT, Capsule, [facility] #[id number], Partial fill upon patient request if the prescription is for a schedule II opio... Start Date: 01/04/21 Stop Date: 01/10/21 Status: Ordered Banophen 25 mg oral tablet [...] capsule, 1 Refills, Maintenance, 10/21/19 11:17:00 EST, [facility] #[id number], 1 capsule By Mouth 3 times a day,Instr:with each meal and snack, 170, cm, 10/20/19 13:48:00 EST, H... Start Date: 10/21/19 Status: Ordered Diflucan 150 mg oral tablet 1 tablet = 150 mg, By Mouth, Once, # 1 tablet, 0 Refills, Soft Stop, 01/04/21 12:08:00 EDT, Tablet,[facility] #[id number], Partial fill upon patient request if the prescription is for a schedule II opioid drug., 170, cm, 01/02/21 20:25:00 EDT, H... Start Date: 01/04/21 Status: Ordered duloxetine 30 mg oral enteric [...] 04/09/21 14:58:00 EDT, 04/09/20 14:57:00 EDT, Tablet, [facility] #[id number], 169, cm, 04/05/20 12:55:00 EDT, Height, 85, [...] 3 Refills, Maintenance, 10/16/20 16:21:00 EST, Tablet, [facility] #[id number], Partial fill upon patient request if the prescription is for a schedul... Start Date: 10/16/20 Stop Date: 02/13/21 Status: Ordered ondansetron 8 mg oral tablet, disintegrating 1 tablet = 8 mg, By Mouth, 3 times a day, PRN Nausea & Vomiting, # 30 tablet, 0 Refills, Maintenance, 12/26/20 12:55:00 EDT, [facility] #[id number], Partial fill upon patient request if the prescription is for a schedule II opioid drug., 170, cm,... Start Date: 12/26/20 Status: Ordered oxyCODONE 5 mg oral capsule 1 capsule = 5 mg, By Mouth, Every 6 hours, PRN for pain, # 12 capsule, 0 Refills, Acute 01/06/21 12:08:00 EDT, 01/04/21 12:07:00 EDT, Capsule, [facility] #[id number], Partial fill upon patient request if the prescription is for a schedule II opio... Start Date: 01/04/21 Stop Date: 01/06/21 Status: Ordered potassium chloride 20 mEq oral tablet, extended release 1 tablet = 20 mEq, By Mouth, Daily, # 30 tablet, 7 Refills, Maintenance, 12/26/20 12:54:00 EDT, ER Tablet, [facility] #[id number], 170, cm, 12/26/20 9:55:00 EDT, Height, 84.65, [...] Refills, Soft Stop, 10/02/20 11:57:00 EST, Powder, [facility] #[id number], Partial fill upon patient... Start Date: 10/02/20 [...]
--- OUTSIDE RECORDS SUMMARY | 2024-01-27 11:28 | XMS_ITS | Continuity of Care Document ---
Author Organization [facility] Address [address] [place] [address]- Care Team Providers Care Productivity Engineer Name Role Phone Maranda WILCOX, Silvio Martinez Primary Care Physician Encounter [facility] Date(s): 01/13/21 - 01/13/[address] [address]- Discharge Disposition: A-D/C Home Attending Physician: True Sanford MD Admitting Physician: True Sanford MD Referring Physician: Not on Staff, Referring MD Allergies, Adverse Reactions, Alerts Substance Reaction Severity Status propranolol Rash Active Nardil Palpitations - rapid N&V - Nausea and vomiting C/O - a headache Active Haldol Active Xarelto rash Active Lexapro n/v Active Zoloft tachycardia n/v Active Inderal n/v,tachcardia Active Cefzil Hives Active Compazine severe anxiety Hives Active Reglan [...] By Mouth, 2 times a day, for 30 days, Call if any significant lightheadedness, # 60 tablet, 3 Refills, Hard Stop 02/13/21 16:21:00 EDT, 10/16/20 16:21:00 EST, Tablet, [facility] #[id number], Partial fill upon patient request if... Start Date: 10/16/20 Stop Date: 02/13/21 Status: Ordered ondansetron 8 mg oral tablet, disintegrating 1 tablet = 8 mg, By Mouth, 3 times a day, PRN Nausea & Vomiting, # 30 tablet, 0 Refills, Maintenance, 12/26/20 12:55:00 EDT, [facility] #[id number], Partial fill upon patient request if the prescription is for a schedule II opioid drug., 170, cm,... Start Date: 12/26/20 Status: Ordered Senna = 8.5 mg, By Mouth, 2 times a day, 0 Refills, Maintenance, 11/06/16 11:22:55 Start Date: 11/06/16 Status: Ordered Solu-CORTEF Act-O-Vial 100 mg injection See Instructions, use daily SQ for adrenal insufficiency. 14 mg qam and 7 mg qpm please provide extra 2 mg vial for stress dosing., # 8 each, 11 Refills, Soft Stop, 10/02/20 11:57:00 EST, Powder, [facility] #[id number], Partial fill upon patient... Start Date: 10/02/20 [...] Range]: 1 2 3 Height 170 cm (01/13/21 8:21 AM) 170 cm (01/13/21 1:35 AM) Weight 80.1 kg (01/13/21 8:21 AM) 80.1 kg (01/13/21 1:35 AM) Oxygen Saturation [94-100 %] 98 % (01/13/21 8:21 AM) 100 % (01/13/21 8:09 AM) 100 % (01/13/21 1:35 AM) Pulse Rate [55-90 bpm] 71 bpm (01/13/21 8:21 AM) 75 bpm (01/13/21 8:09 AM) 106 bpm *H* (01/13/21 1:35 AM) Body Mass Index [18.5-24.99] 27.72 *H* (01/13/21 8:21 AM) Blood Pressure [90-138/55-84 mm Hg] 111/64mm Hg (01/13/21 8:21 AM) 124/76mm Hg (01/13/21 8:09 AM) 141/92mm Hg *H* (01/13/21 1:35 AM) Respiratory Rate [16-30 br/min] 15 br/min *L* (01/13/21 8:21 AM) 16 br/min (01/13/21 8:09 AM) 16 br/min (01/13/21 1:35 AM) Temperature [96.8-100.4 DegF] 98.1 DegF (01/13/21 8:21 AM) 98.2 DegF (01/13/21 1:35 AM) Mode of Delivery (Oxygen) Room air (01/13/21 8:09 AM) Room air (01/13/21 1:35 AM) Blood pressure sites Arm, right (01/13/21 8:21 AM) Arm, left (01/13/21 8:09 AM) Arm, right (01/13/21 1:35 AM) Temperature Route Temporal (01/13/21 8:21 AM) Oral (01/13/21 1:35 AM) Dry Weight 80.1 kg (01/13/21 8:21 AM) 80.1 kg (01/13/21 1:35 AM) Weight Obtained Via Standing scale (01/13/21 1:35 AM) Dry Weight Obtained Via Standing scale (01/13/21 1:35 AM) Social History Social History Type Response Smoking Status Current every day rowan munoz; Previous treatment: Counseling; Previous treatment: Nicotine replacement; Other: 1/2 ppd x 20 yrs; entered on: 09/16/16 Sex
--- OUTSIDE RECORDS SUMMARY | 2024-01-27 11:28 | XMS_ITS | Continuity of Care Document ---
Author Organization [facility] Address [address] [place] [address]- Care Team Providers Care Underground Heavy Equipment Operator Name Role Phone Dash WILCOX (AL), Paola Anderson Primary Care Physician Encounter [facility] Date(s): 12/21/23 - 12/21/[address] [address]- Encounter Diagnosis Dizziness(Final) - 12/21/23 Discharge Disposition: A-D/C Home Attending Physician: Jimbo Mcclellan MD Admitting Physician: Jimbo Mcclellan MD Referring Physician: Not on Staff, Referring [...] 4 Refills, Maintenance, 08/10/23 14:21:00 EST, Tablet, [facility] #[id number], Partial fill upon patient request if the prescription is fora schedule II opioid drug., 170, cm, 08/05/23 3:21:... Start Date: 08/10/23 Stop Date: 01/07/24 Status: Ordered Metoprolol Tartrate 100 mg oral tablet 1 tablet, By Mouth, 2 times a day, # 60 tablet, 4 Refills, Maintenance, 10/11/23 9:06:00 EST, [facility] #[id number], 170, cm, 09/26/23 11:43:00 EST, Height, 93, [...] Refills, Maintenance, 10/13/23 13:52:00 EST, DIS Tablet, [facility] #[id number], Partial fill upon patient request if the prescription is for a schedule I... Start Date: 10/13/23 Status: Ordered prazosin 2 mg oral capsule 1 capsule = 2 mg, By Mouth, Daily at bedtime, if PO intake is low or BP low below 110/70 only take one cap, # 30 capsule, 4 Refills, Maintenance, 08/10/23 14:14:00 EST, [facility] #[id number], Partial fill upon patient request if the [...] Refills, Soft Stop, 05/27/23 14:16:00 EDT, Powder, [facility] #[id number], Partial fill upon patient... Start Date: 05/27/23 Status: Ordered spironolactone 25 mg oral tablet 1, tablet, By Mouth, Daily, # 30 tablet, Refills 0, Maintenance, 09/10/23 16:43:00 EST, Route to Pharmacy Electronically, [facility] #[id number], 170, cm, 08/27/23 7:32:00 EST, Height, 99, kg, 08/18/23 9:13:00 EST, Dry Weight Start Date: 09/10/23 Status: Ordered Wellbutrin SR 100 mg/12 hours oral tablet, extended release 1 tablet = 100 mg, By Mouth, Daily, # 30 tablet, 4 Refills, Maintenance, 08/10/23 14:26:00 EST, [email or web address] #[id number], Partial fill upon patient request if the [...] (supraventricular tachycardia) Confirmed Active 1MRI compatible 2IAROGENIC Results Radiology Reports * Exam Date Time Procedure Performing Provider Status 12/21/23 9:50 PM Chest 2 Views Frontal and Lat Susie Fournier; Auth (Verified) Notes: (Chest 2 Views Frontal and Lat) Reason For Exam: Shortness of Breath, Fever;Other: RESULT: Chest 2 Views Frontal and Lat Chest 2 Views Frontal and Lat Hx of Present Illness: Pt was in triage with a pt when she suddenly felt lightheaded dizzy and nauseous. Pt pale and diaphoretic. Pt reports burning sensation in chest; Reason: Other:; Shortness ofBreath, Fever; Clinical Question(s): Pneumonia COMPARISON: 11/05/23. FINDINGS: LINES AND TUBES: Dual-lead left subclavian pacer/AICD wires are intact. LUNGS AND PLEURA: Clear lungs. Normal pulmonary vascularity. No pleural effusion. No pneumothorax. HEART, MEDIASTINUM AND DAGOBERTO: Heart is normal in size. Normal mediastinal and hilar contour. BONES AND SOFT TISSUES: No acute abnormality. IMPRESSION: No acute abnormality. WSN: [id number] Ordering Physician: Jimbo Mcclellan Dictated By: Aleksandr Hopkins MD Dictated Date/Time: 12/21/23 9:55 pm Reviewed By: Aleksandr Hopkins MD Signed By: Aleksandr Hopkins MD Signed Date/Time: 12/21/23 9:55 pm Transcribed By: DIANE Transcribed Date/Time: 12/21/23 9:52 pm Vital Signs Most recent to oldest [Reference Range]: 1 2 3 Height 170 cm (12/21/23 10:24 PM) 170 cm (12/21/23 9:23 PM) 170 cm (12/21/23 7:29 PM) Weight 93 kg (12/21/23 10:24 PM) 93 kg (12/21/23 6:50 PM) Oxygen Saturation [94-100 %] 97 % (12/21/23 10:24 PM) 98 % (12/21/23 9:23 PM) 99 % (12/21/23 7:29 PM) Pulse Rate [55-90 bpm] 75 bpm (12/21/23 10:24 PM) 60 bpm (12/21/23 9:23 PM) 64 bpm (12/21/23 7:29 PM) Body Mass Index [18.5-24.99 kg/m2] 32.18 kg/m2 *>HHI* (12/21/23 10:24 PM) Blood Pressure [90-138/55-84 mm Hg] 126/78mm Hg (12/21/23 10:24 PM) 111/63mm Hg (12/21/23 9:23 PM) 96/78mm Hg (12/21/23 7:29 PM) Respiratory Rate [16-30 br/min] 12 br/min *L* (12/21/23 10:24 PM) 15 br/min *L* (12/21/23 7:29 PM) 20 br/min (12/21/23 6:50 PM) Temperature [96.8-100.4 DegF] 98.5 DegF (12/21/23 10:24 PM) 97.0 DegF (12/21/23 6:50 PM) Mode of Delivery (Oxygen) Room air (12/21/23 10:24 PM) Room air (12/21/23 9:23 PM) Room air (12/21/23 7:29 PM) Blood pressure sites Arm, left (12/21/23 10:24 PM) Arm, left (12/21/23 9:23 PM) Arm, left (12/21/23 7:29 PM) Temperature Route Oral (12/21/23 10:24 PM) Oral (12/21/23 6:50 PM) Dry Weight 93 kg (12/21/23 10:24 PM) 93 kg (12/21/23 6:50 PM) Weight Obtained Via Patient/family state d (12/21/23 6:50 PM) Social History Social History Type Response [...] Unknown Unknown Active Un known Note * Vy WILCOX, Jimbo Barillas: PERFORM Event Display: Patient Education Leaflets Authored Date: Near-Fainting: Vagal Reaction ?? [id number] Near-Fainting: Vagal Reaction Fainting (syncope) is passing out. It's a temporary loss of consciousness. Near- fainting is feelinglike you are going to faint. But you don't lose consciousness. Fainting and near-fainting can be caused by a vagal reaction (or overstimulation of the vagus nerve). This is something you can't control. It's the body's involuntary response to a physical or emotional stress. This reaction causes a sudden drop in your blood pressure or a slowed heart rate. As a result, not enough blood goes to your brain. Lying down often stops the reaction very quickly. These are symptoms of near-fainting: ??? Feeling lightheaded or like you are going to faint ??? Weak pulse ??? Upset stomach (nausea) ??? Sweating ??? Blurred vision or feeling like your vision is blacking out ??? Trouble breathing ??? Cool and moist skin Causes for near-fainting include: ??? Sudden emotional stress such as fear, pain, panic, or the sight of blood ??? Straining or overexertion, straining while using the toilet, coughing, or sneezing ??? Standing up too quickly or standing up for too long a time ? Some medicines ??? Fluid loss (dehydration) Home care These tips will help you care for yourself at home: ??? Rest today and go back to your normal activities when you feel back to normal. ??? If you get lightheaded or dizzy, lie down right away. Put your legs up so they are higher than your heart. ??? If you are sitting down and feel faint, don't stand up. This may make the feeling worse. ??? Drink plenty of fluids, and don't skip meals. ??? Don't stand for long periods or stay in??hot places. ??? Do what you can to prevent constipation. If you bear down a lot when trying to poop (have a bowel movement), this can trigger a vagal response. Check with your healthcare provider to see if you need tests, such as a tilt- table test, heart rhythm monitoring, or blood tests. Review the medicines you take with your provider and pharmacist. Makesure the symptoms you have are not a side effect of a medicine. ?? Follow-up care Follow up with your healthcare provider, or as advised.?? If you have frequent episodes of near-fainting or vagal reactions, be careful about activities suchas driving. You could harm yourself or others if you were to faint. Don't drive or operate heavy machinery if you are feeling like you may faint. ?? Call 911 Call 911 if any of these occur: ??? Another fainting spell not explained by the common causes listed above ??? Chest, arm, neck, jaw, back, or belly (abdominal) pain ??? Shortness of breath ??? Weakness, tingling, or numbness in 1 side of the face, or 1 arm or leg ??? Slurred speech, confusion, or trouble walking or seeing ??? Seizure ??? Blood in vomit or poop (black or red color) ?? When to get medical care Call your healthcare provider right away if you sometimes have mild lightheadedness, especially when standing up. ?? Last Reviewed Date: 2022 ?? [employer]. All rights reserved. This information is not intended as a substitute for professional medical care. Always follow your healthcare professional's instructions. ?? Patient Care team information Care Team Personnel Name: Dash WILCOX (AL) , Paola Anderson Position: [facility] Outreach Member Role: PCP Address: Address: [address] [place] [id number] [place] Name: Daina Ibrahim RN Position: [facility] ED RN W/OE and Tasks Member Role: Primary Care Nurse Name: Madeline Baird RN Position: [facility] ED RN W/OE and Tasks Member Role: Primary Care Nurse Name: Teresa Carpio Position: [facility] RN Member Role: Primary Care Nurse Name: Inge Elizabeth RN Position: [facility] SN RN Member Role: Primary Care Nurse Name: Kelley Prsaad RN Position: [facility] ED RN W/OE and Tasks Member Role: Primary Care Nurse Name: Cindy Medeiros RN Position: [facility] RN Member Role: Primary Care Nurse Name: Linnette De La O RN Position: [facility] HYDROGRAPHIC ENGINEER Member Role: Primary Care Nurse Name: Alina Castillo NP Position: [facility] Associate Professional Member Role: Primary Care Nurse Address: Address: [address] [place] [address]- [place] Name: Mary Anne Kilpatrick RN Position: [facility] MR W/ Merge Member Role: Primary Care Nurse Name: Kira Medellin RN Position: [facility] RN Member Role: Primary Care Nurse Name: Nicole Hernández RN Position: [facility] RN Member Role: Primary Care Nurse Name: Lindsay Srinivasan CNM Position: [facility] Dyer And Washer Member Role: Primary Care Nurse Address: Address: [address] [place] [phone]- [place] Name: Bea Brown RN Position: [facility] RN Member Role: Primary Care Nurse Name: Kiana Sabillon RN Position: [facility] RN Member Role: Primary Care Nurse Name: Bobby Wilson RN Position: [facility] Outreach Member Role: Primary Care Nurse Name: Larissa Olson [place] Position: [facility] RN Member Role: Primary Care Nurse Name: Karen Roa RN Position: [facility] ED RN W/OE and Tasks Member Role: Primary Care Nurse Name: Mary Alice Stevens RN Position: [facility] RN Member Role: Primary Care Nurse Name: Beverly Grey Position: [facility] RN Member Role: Primary Care Nurse Name: Lani Gray RN Position: [facility] RN Member Role: Primary Care Nurse Name: Alexy Geronimo RN Position: [facility] ED RN W/OE and Tasks Member Role: Primary Care Nurse Name: Raúl Rudolph DO Position: [facility] MANAGER OPERATIONS RESEARCH MD Member Role: Lifetime MANAGER OPERATIONS RESEARCH Physician Address: Address: [address] [place] [phone]- Name: Evelyn Haynes RN Position: [facility] RN Member Role: Primary Care Nurse Name: Crissy Metzger RN Position: [facility] RN Member Role: Primary Care Nurse Name: Elisa Gilbert RN Position: [facility] RN Member Role: Primary Care Nurse Name: Corina Solorio RN Position: [facility] SN RN Member Role: Primary Care Nurse Name: Shawnee Lane RN Position: [facility] ED RN W/OE and Tasks Member Role: Primary Care Nurse Name: Ana Estrada RN Position: [facility] RN Member Role: Primary Care Nurse Name: Erna Douglass RN Position: [facility] Office Staff Member Role: Primary Care Nurse Name: Keyana Ndiaye RN Position: [facility] Demand Planner Member Role: Primary Care Nurse Name: Grace Verma RN Position: [facility] RN Member Role: Primary Care Nurse Name: Anabella Nicholson RN Position: [facility] AMB Nurse Member Role: Primary Care Nurse Name: Brenda Tomas RN Position: [facility] Outreach Member Role: Primary Care Nurse Name: Ramona Ybarra RN Position: [facility] RN Member Role: Primary Care Nurse Address: Address: [address] [place] [id number]- Name: Nancy Gallagher RN Position: [facility] Demand Planner Member Role: Primary Care Nurse Name: Evelyn Allen RN Position: [facility] OB RN Member Role: Primary Care Nurse Name: Jackelin Watt RN Position: [facility] RN Member Role: Primary Care Nurse Name: Raymundo Elizabeth RN Position: [facility] SN RN Member Role: Primary Care Nurse Name: Raymundo Beard RN Position: [facility] RN Member Role: Primary Care Nurse Name: Opal Calderon RN Position: [facility] RN Member Role: Primary Care Nurse Name: Timmy RN, [place] Position: [facility] RN Member Role: Primary Care Nurse Care Team Related Persons Name: PATRICE BARTOLOME Address: home [address] [place], [place] Name: GIANLUCA IBRAHIM Address: home [address] [place], [place] Name: ABBIE IBRAHIM Address: [address] [place], [place] Name: SIM CERDA Name: DIANE CERDA Address: home [address] [place] [address] Name: SOLO CORRIGAN Address: [address] [place], [place] Name: SOLO FLORES Address: home [address] [place] [address] Name: RAYMUNDO MAYFIELD Address: home [address] [place] [address]
--- OUTSIDE RECORDS SUMMARY | 2024-01-27 11:28 | XMS_ITS | Continuity of Care Document ---
Author Organization [facility] Address [address] [place] [address]- Care Team Providers Care Healthcare Educator Name Role Phone Maranda WILCOX, Silvio Martinez Primary Care Physician Encounter [facility] Date(s): 04/10/20 - 05/10/20 [facility] [address] [place] [address]- [facility] Allergies, Adverse Reactions, Alerts Substance Reaction [...] mL, Refills 11, Tot. Refills 11, Maintenance, [facility]: [id number], 05/08/20 16:20:00 EDT, Supply, 169, cm, 04/15/20 [...] capsule, 1 Refills, Maintenance, 10/21/19 11:17:00 EST, [facility] #[id number], 1 capsule By Mouth 3 times a [...] 04/09/21 14:58:00 EDT, 04/09/20 14:57:00 EDT, Tablet, [facility] #[id number], 169, cm, 04/05/20 12:55:00 EDT, Height, 85, [...] Acute 04/30/21 16:58:00 EDT, 04/30/20 16:57:00 EDT, [facility] #[id number], 169, cm, 04/15/20 17:38:00 EDT, Height, 85, kg, 03/15/20 2:33:00 EDT, Dry Weight Start Date: 04/30/20 Stop Date: 04/30/21 Status: Ordered methylprednisolone 2 gm injectable powder for injection See Instructions, inject 4 grams IM for adrenal crisis, # 48 Gm, 11 Refills, Acute 06/08/21 12:08:00 EDT, 05/03/21 10:04:00 EDT, [facility] #[id number], 169, cm, 04/15/20 17:38:00 EDT, Height, 85, kg, 03/15/20 2:33:00 EDT, Dry Weight Start Date: 05/03/21 Stop Date: 06/08/21 Status: Ordered methylprednisolone 2 gm injectable powder for injection See Instructions, inject 4 grams IM for adrenal crisis, # 48 Gm, 3 Refills, Acute 05/03/21 10:04:00EDT, 05/03/20 10:03:00 EDT, [facility] #[id number], 169, cm, 04/15/20 17:38:00 EDT, Height, 85, kg, 03/15/20 2:33:00 EDT, Dry Weight Start Date: 05/03/20 Stop Date: 05/03/21 Status: Ordered methylprednisolone 2 gm injectable powder for injection See Instructions, inject 4 grams IM for adrenal crisis, # 48 Gm, 3 Refills, Acute 05/03/21 11:58:00EDT, 05/03/21 10:04:00 EDT, [facility], 169, cm, 04/15/20 17:38:00 EDT, Height, [...] 11 Refills, Soft Stop, 05/03/20 16:07:00 EDT, [facility] #[id number], 169, cm, 04/15/20 17:38:00 EDT, Height, 85, [...] Refills, Maintenance, 12/05/19 20:49:00 EDT, DIS Tablet, [facility] #[id number], 170, cm, 12/05/19 19:19:00 EDT, Height, 88.7, [...]
--- OUTSIDE RECORDS SUMMARY | 2024-01-27 11:28 | XMS_ITS | Continuity of Care Document ---
Author Organization [facility] Address [address] [place] [address]- Care Team Providers Care Reprint Sorter Name Role Phone Silvio Low MD Primary Care Physician Encounter [facility] Date(s): 06/18/20 - 06/18/[address] [address]- [facility] Discharge Disposition: A-D/C Home Attending Physician: True [...] influenza virus vaccine, inactivated 2 06/23/16 Gi gualbreto influenza virus vaccine, inactivated 3 06/29/13 Gi [...] mL, Refills 11, Tot. Refills 11, Maintenance, [facility]: [id number], 05/08/20 16:20:00 EDT, Supply, 169, cm, 04/15/20 [...] capsule, 1 Refills, Maintenance, 10/21/19 11:17:00 EST, [facility] #[id number], 1 capsule By Mouth 3 times a [...] 04/09/21 14:58:00 EDT, 04/09/20 14:57:00 EDT, Tablet, [facility] #[id number], 169, cm, 04/05/20 12:55:00 EDT, Height, 85, [...] tablet, 3 Refills, Maintenance, 05/28/20 11:56:00 EDT, [facility] #[id number], 170, cm, 05/27/20 0:11:00 EDT, Height,90.4, kg, [...] Acute 04/30/21 16:58:00 EDT, 04/30/20 16:57:00 EDT, [facility] #[id number], 169, cm, 04/15/20 17:38:00 EDT, Height, 85, kg, 03/15/20 2:33:00 EDT, Dry Weight Start Date: 04/30/20 Stop Date: 04/30/21 Status: Ordered methylprednisolone 2 gm injectable powder for injection See Instructions, inject 4 grams IM for adrenal crisis, # 48 Gm, 11 Refills, Acute 06/08/21 12:08:00 EDT, 05/03/21 10:04:00 EDT, [facility]/pharmacy #1111, 169, cm, 04/15/20 17:38:00 EDT, Height, 85, kg, 03/15/20 2:33:00 EDT, Dry Weight Start Date: 05/03/21 Stop Date: 06/08/21 Status: Ordered methylprednisolone 2 gm injectable powder for injection See Instructions, inject 4 grams IM for adrenal crisis, # 48 Gm, 3 Refills, Acute 05/03/21 10:04:00EDT, 05/03/20 10:03:00 EDT, [facility] #[id number], 169, cm, 04/15/20 17:38:00 EDT, Height, 85, kg, 03/15/20 2:33:00 EDT, Dry Weight Start Date: 05/03/20 Stop Date: 05/03/21 Status: Ordered methylprednisolone 2 gm injectable powder for injection See Instructions, inject 4 grams IM for adrenal crisis, # 48 Gm, 3 Refills, Acute 05/03/21 11:58:00EDT, 05/03/21 10:04:00 EDT, [facility], 169, cm, 04/15/20 17:38:00 [...] 0 Refills, Maintenance, 06/18/20 16:48:00 EDT, Tablet, [facility] #[id number], 170, cm, 06/18/20 15:14:00 EDT, Height, 90.4, [...] 11 Refills, Soft Stop, 05/03/20 16:07:00 EDT, [facility] #[id number], 169, cm, 04/15/20 17:38:00 EDT, Height, 85, [...] Refills, Maintenance, 12/05/19 20:49:00 EDT, DIS Tablet, [id number], 170, cm, 12/05/19 19:19:00 EDT, Height, 88.7, [...] Exam Date Time Procedure Performing Provider Status 06/18/20 3:50 PM Chest Portable Hong Platt; Auth (Ve rified) Notes: (Chest Portable) Reason For Exam: Shortness of Breath RESULT: Chest Portable Chest Portable Hx of Present Illness: not feeling well since last SAt: COTO, sore throat, hot and cold, non productive cough, muscle aches, abd pain, n,v,d.; Reason: Shortness of Breath; Clinical Question(s): CHF COMPARISON: 03/15/2020. FINDINGS: LINES AND TUBES: None. LUNGS AND PLEURA: Clear lungs. Lower lung detail mildly limited by body habitus and portable technique. Normal pulmonary vascularity. No pleural effusion. No pneumothorax. HEART, MEDIASTINUM AND DAGOBERTO: Heart is normal in size. Dual-chamber pacemaker left hemithorax unchanged. Normal mediastinal and hilar contour. BONES AND SOFT TISSUES: No acute abnormality. IMPRESSION: No CHF or other acute abnormality. WSN: [id number] Ordering Physician: True Sanford Dictated By: Aleksandr Hanks MD Dictated Date/Time: 06/18/20 3:57 pm Reviewed By: Aleksandr Hanks MD Signed By: Aleksandr Hanks MD Signed Date/Time: 06/18/20 3:57 pm Transcribed By: DIANE Transcribed Date/Time: 06/18/20 3:54 pm Vital Signs Most recent to oldest [Reference Range]: 1 2 3 Height 170 cm (06/18/20 3:11 PM) Weight 90.4 kg (06/18/20 3:11 PM) Oxygen Saturation [94-100 %] 98 % (06/18/20 5:08 PM) 98 % (06/18/20 3:10 PM) Pulse Rate [55-90 bpm] 76 bpm (06/18/20 5:08 PM) 84 bpm (06/18/20 3:10 PM) Blood Pressure [90-138/55-84 mm Hg] 134/68mm Hg (06/18/20 5:08 PM) 135/64mm Hg (06/18/20 3:10 PM) Respiratory Rate [16-30 br/min] 17 br/min (06/18/20 5:08 PM) 17 br/min (06/18/20 4:16 PM) 17 br/min (06/18/20 3:10 PM) Temperature [96.8-100.4 DegF] 98.4 DegF (9/29/20 3:10 PM) Mode of Delivery (Oxygen) Room air (06/18/20 3:10 PM) Temperature Route Oral (06/18/20 3:10 PM) Dry Weight 90.4 kg (06/18/20 3:11 PM) Weight Obtained Via Patient/family state d (06/18/20 3:11 PM) Social History Social History Type Response Smoking Status 10 or more cigarette s (1/2 pack or more)/day in last 30 days entered on: 08/06/19 Sex
--- OUTSIDE RECORDS SUMMARY | 2024-01-27 11:28 | XMS_ITS | Continuity of Care Document ---
Author Organization [facility] Address [address] [place] [id number]- Care Team Providers Care Planer Tailer Name Role Phone Maranda WILCOX, Silvio Martinez Primary Care Physician Encounter [facility] Date(s): 11/18/20 - 12/28/[address] [address]- Attending Physician: Amelia Wolff NP Admitting Physician: Mariella OCAMPO, Amelia Referring Physician: Amelia Wolff NP Allergies, Adverse Reactions, Alerts Substance Reaction Severity [...] capsule, 1 Refills, Maintenance, 10/21/19 11:17:00 EST, [facility] #[id number], 1 capsule By Mouth 3 times a day,Instr:with each meal and snack, 170, cm, 10/20/19 13:48:00 EST, H... Start Date: 10/21/19 Status: Ordered diphenhydrAMINE 25 mg oral tablet = 50 mg, By Mouth, 4 times a day, PRN as needed for itching, for 3 days, # 10 tablet, 0 Refills, Acute 12/29/20 12:55:00 EDT, 12/26/20 12:55:00 EDT, Tablet, [facility] #[id number], Partial fill upon patient request if the [...] 04/09/21 14:58:00 EDT, 04/09/20 14:57:00 EDT, Tablet, [facility] #[id number], 169, cm, 04/05/20 12:55:00 EDT, Height, 85, [...] 3 Refills, Maintenance, 10/16/20 16:21:00 EST, Tablet, [facility] #[id number], Partial fill upon patient request if the prescription is for a schedul... Start Date: 10/16/20 Stop Date: 02/13/21 Status: Ordered ondansetron 8 mg oral tablet, disintegrating 1 tablet = 8 mg, By Mouth, 3 times a day, PRN Nausea & Vomiting, # 30 tablet, 0 Refills, Maintenance, 12/26/20 12:55:00 EDT, [facility] #[id number], Partial fill upon patient request if the [...] Refills, Maintenance, 12/26/20 12:54:00 EDT, ER Tablet, [facility] #[id number], 170, cm, 12/26/20 9:55:00 EDT, Height, 84.65, [...] Refills, Soft Stop, 10/02/20 11:57:00 EST, Powder, [facility] #[id number], Partial fill upon patient... Start Date: 10/02/20 [...]
--- OUTSIDE RECORDS SUMMARY | 2024-01-27 11:28 | XMS_ITS | Continuity of Care Document ---
Author Organization [facility] Address [address] [place] [address] ve [address] [place] [address]- Care Team Providers Care Hose Builder Name Role Phone Maranda WILCOX, Silvio Martinez Primary Care Physician Encounter [facility] Date(s): 04/16/20 - 06/08/[address] [place] [address]- [place] Attending Physician: Agustín East MD Referring Physician: Estela Montalvo MD Allergies, Adverse Reactions, Alerts Substance Reaction [...] Refills 11, Tot. Refills 11, Maintenance, [facility]: [id number], 05/08/20 16:20:00 EDT, Supply, 169, cm, 04/15/20 [...] capsule, 1 Refills, Maintenance, 10/21/19 11:17:00 EST, [facility] #[id number], 1 capsule By Mouth 3 times a [...] 04/09/21 14:58:00 EDT, 04/09/20 14:57:00 EDT, Tablet, [facility] #[id number], 169, cm, 04/05/20 12:55:00 EDT, Height, 85, [...] tablet, 3 Refills, Maintenance, 05/28/20 11:56:00 EDT, [facility] #[id number], 170, cm, 05/27/20 0:11:00 EDT, Height,90.4, kg, [...] Acute 04/30/21 16:58:00 EDT, 04/30/20 16:57:00 EDT, [facility] #[id number], 169, cm, 04/15/20 17:38:00 EDT, Height, 85, [...] Refills, Acute 05/03/21 10:04:00EDT, 05/03/20 10:03:00 EDT, [facility] #[id number], 169, cm, 04/15/20 17:38:00 EDT, Height, 85, kg, 03/15/20 2:33:00 EDT, Dry Weight Start Date: 05/03/20 Stop Date: 05/03/21 Status: Ordered methylprednisolone 2 gm injectable powder for injection See Instructions, inject 4 grams IM for adrenal crisis, # 48 Gm, 3 Refills, Acute 05/03/21 11:58:00EDT, 05/03/21 10:04:00 EDT, [facility], 169, cm, 04/15/20 17:38:00 [...] 11 Refills, Soft Stop, 05/03/20 16:07:00 EDT, [facility] #[id number], 169, cm, 04/15/20 17:38:00 EDT, Height, 85, [...] Refills, Maintenance, 12/05/19 20:49:00 EDT, DIS Tablet, [facility] #[id number], 170, cm, 12/05/19 19:19:00 EDT, Height, 88.7, [...]
--- OUTSIDE RECORDS SUMMARY | 2024-01-27 11:28 | XMS_ITS | Continuity of Care Document ---
Author Organization [facility] Address [address] [place] [address]- Care Team Providers Care Osha Inspector Name Role Phone Maranda WILCOX, Silvio Martinez Primary Care Physician Encounter [facility] Date(s): 08/20/20 - 09/19/20 [facility] [address] [place] [address]- Attending Physician: Maximo Cano Admitting Physician: AdmtrMaximo [...] capsule, 1 Refills, Maintenance, 10/21/19 11:17:00 EST, [facility] #[id number], 1 capsule By Mouth 3 times a [...] 04/09/21 14:58:00 EDT, 04/09/20 14:57:00 EDT, Tablet, [facility] #[id number], 169, cm, 04/05/20 12:55:00 EDT, Height, 85, [...] tablet, 3 Refills, Maintenance, 05/28/20 11:56:00 EDT, [facility] #[id number], 170, cm, 05/27/20 0:11:00 EDT, Height,90.4, kg, [...] Acute 06/08/21 12:08:00 EDT, 05/03/21 10:04:00 EDT, [facility]/pharmacy #[id number], 169, cm, 04/15/20 17:38:00 [...] 0 Refills, Maintenance, 06/18/20 16:48:00 EDT, Tablet, [facility] #[id number], 170, cm, 06/18/20 15:14:00 EDT, Height, 90.4, [...] 11 Refills, Soft Stop, 07/10/20 6:01:00 EDT, [facility] #61985, 170, cm, 07/10/20 2:42:00 EDT, Height, 90.5, kg, 07/09/20 23:20:00 EDT, Dry Weight Start Date: 07/10/20 Status: Ordered Solu-CORTEF 100 mg preservative-free injection = 100 mg, Intramuscular, Once, prn adrenal crisis, # 5 each, 11 Refills, Soft Stop, 05/03/20 16:07:00 EDT, [facility] #[id number], 169, cm, 04/15/20 17:38:00 EDT, Height, 85, [...]
--- OUTSIDE RECORDS SUMMARY | 2024-01-27 11:28 | XMS_ITS | Continuity of Care Document ---
Author Organization [facility] Address [address] [place] [address]- Care Team Providers Care Childhood Development Teacher Name Role Phone Agustín Faria MD Primary Care Physician Encounter [facility] Date(s): 06/13/22 - 10/11/22 [facility] [address] [place] [address]- Attending Physician: Amos Appiah MD Allergies, Adverse Reactions, [...] tablet, 3 Refills, Maintenance, 08/17/22 15:43:00 EST, [facility] #[id number], 170, cm, 05/13/22 17:18:00 EDT, Height, 88.8, [...] day, # 60 tablet, 4 Refills, Maintenance, 09/10/22 15:48:00 EST, [facility] #[id number], Partial fill upon patient request if the prescription is for a schedule II opioid drug., 170, cm, 05/13/22 17:18:00 ED... Start Date: 09/10/22 Stop Date: 02/07/23 Status: Ordered busPIRone 15 mg oral tablet 1 tablet = 15 mg, By Mouth, 2 times a day, # 60 tablet, 4 Refills, Maintenance, 09/10/22 15:45:00 EST, Tablet, [facility] #[id number], Partial fill upon patient request if the prescription is for a schedule II opioid drug., 170, cm, 05/13/22 17:1... Start Date: 09/10/22 Stop Date: 02/07/23 Status: Ordered famotidine 20 mg oral tablet 20 mg, 1, tablet, By Mouth, 2 times a day, # 180 tablet, Refills 0, Tot. Refills 0, Maintenance, 01/08/21 13:59:00 EDT, Route to Pharmacy Electronically, [facility] #[id number], Partial fill upon patient request if the prescription is for a sched... Start Date: 01/08/21 Status: Ordered Flonase 50 mcg/inh nasal spray 2 sprays, Nares, Both, 2 times a day, PRN Congestion, # 16 Gm, 0 Refills, Maintenance, 08/20/20 11:17:00 EST, [place], [facility] #41807, Partial fill upon patient request if the prescriptionis for a schedule II opioid drug., 170, cm, 2... Start Date: 08/20/20 Status: Ordered gabapentin 300 mg oral capsule 300 mg, 1, capsule, By Mouth, 2 times a day, # 60 capsule, Refills 4, Tot. Refills 4, Maintenance, 09/10/22 15:49:00 EST, Route to Pharmacy Electronically, [facility] #[id number], Partial fill upon patient request if the prescription is for a jose... Start Date: 09/10/22 Stop Date: 02/07/23 Status: Ordered Insulin Syringe, BD Ultra-Fine 1 [...] 09/25/22 15:38:00 EST, Route to Pharmacy Electronically, [facility] #[id number], Partial fill upon patient request if the prescription is for a sched... Start Date: 09/25/22 Stop Date: 09/20/23 Status: Ordered KlonoPIN 1 mg oral tablet 1 tablet = 1 mg, By Mouth, 2 times a day, dose is BID, # 60 tablet, 3 Refills, Maintenance, 09/10/22 15:45:00 EST, [facility] #[id number], NO EARLY REFILLS, 170, cm, 05/13/22 17:18:00 EDT, Height, 88.8, kg, 05/13/22 17:18:00 EDT, Dry Weight Start Date: 09/10/22 Stop Date: 01/08/23 Status: Ordered lidocaine 1.8% topical film 1 patch, Topically, Daily, leave on up to 12 hours, # 30 each, 0 Refills, Maintenance, 08/24/19 8:56:45 EST, Film Start Date: 08/24/19 Status: Ordered Metoprolol Tartrate 50 mg oral tablet 1.5 tablet = 75 mg, By Mouth, 2 times a day, Take 75 mg twice daily, # 270 tablet, 3 Refills, Maintenance, 09/13/22 16:21:00 EST, Tablet, [facility] #55866, Partial fill upon patient request if the prescription is for a schedule II opioid dr... Start Date: 09/13/22 Stop Date: 09/08/23 Status: Ordered nitroglycerin 0.4 mg sublingual tablet 1 tablet, Sublingual, Every 5 minutes, PRN NEEDED FOR CHEST PAIN MAX 3 DOSES IN 15 MINUTES IF PAIN PERSISTS CALL 911, # 100 tablet, 3 Refills, Maintenance, 08/17/22 15:44:00 EST, [facility] #[id number], 170, cm, 05/13/22 17:18:00 EDT, Height,... Start Date: 08/17/22 Status: Ordered ondansetron 8 mg oral tablet, disintegrating 1 tablet = 8 mg, By Mouth, 3 times a day, PRN Nausea & Vomiting, # 30 tablet, 0 Refills, Maintenance, 12/26/20 12:55:00 EDT, [facility] #[id number], Partial fill upon patient request if the prescription is for a schedule II opioid drug., 170, cm,... Start Date: 12/26/20 Status: Ordered oxyCODONE 10 mg oral tablet = 10 mg, By Mouth, Every 8 hours, as needed; on a 15/month taper, # 60 tablet, 0 Refills, Maintenance, 03/24/21 11:54:00 EDT, Tablet, [facility] #[id number], Partial fill upon patient request ifthe prescription [...] cap, # 60 capsule, 4 Refills, Maintenance, 09/10/22 15:46:[id number], Partial fill upon patient request if the prescription... Start Date: 09/10/22 Stop Date: 02/07/23 Status: Ordered Protonix 20 mg oral delayed [...] Refills, Soft Stop, 04/20/22 10:54:00 EDT, Powder, [facility] #[id number], Partial fill upon patient... Start Date: 04/20/22 Status: Ordered spironolactone 25 mg oral tablet 25 mg, 1, tablet, By Mouth, Daily, # 90 tablet, Refills 3, Tot. Refills 3, Maintenance, 09/13/22 16:11:00 EST, Route to Pharmacy Electronically, [facility] #[id number], Partial fill upon patientrequest if the prescription is for a schedule II op... Start Date: 09/13/22 Stop Date: 09/08/23 Status: Ordered traZODone 150 mg oral tablet 1 tablet = 150 mg, By Mouth, Daily at bedtime, # 30 tablet, 4 Refills, Maintenance, 09/10/22 15:47:00 EST, Tablet, [facility] #[id number], Partial fill upon patient request if the prescription is for a schedule II opioid drug., 170, cm, 05/13/22... Start Date: 09/10/22 Stop Date: 02/07/23 Status: Ordered Wheelchair See Instructions, # 1 [...] Device Type Site Cystoscopy Retrograde Ureteral Stent Bruno Geiger MD 07/09/21 Unknown Ureter Device Identifier Serial Number Lot or Batch Number Manufacturing Date Expiration Date Distinct Identification Code MRI Safety Implantable Status Assigning Authority Unknown Unknown Unknown Unknown 07/09/21 Unknown Unknown Active Un known Cardiology Outpatient Note * Cristal Nevarez RN: PERFORM, SIGN, VERIFY Event Display: Cardiology Note Office Authored Date: [id number] Patient: MARY ALICE IBRAHIM Age: 41 years Sex: Female : 1980 Associated Diagnoses: None Author: Cristal Nevarez RN Left message that monitor is disconnected. Please reconnect and call [employer] if unable. Patient Care team information Care Team Personnel Name: Daina Ibrahim RN Position: [facility] ED RN W/OE and Tasks Member Role: Primary Care Nurse Name: Madeline Baird RN Position: [facility] ED RN W/OE and Tasks Member Role: Primary Care Nurse Name: Teresa Carpio Position: [facility] RN Member Role: Primary Care Nurse Name: Inge Elizabeth RN Position: [facility] RN Member Role: Primary Care Nurse Name: Kelley Prasad RN Position: [facility] RN Member Role: Primary Care Nurse Name: Cindy Medeiros RN Position: [facility] RN Member Role: Primary Care Nurse Name: Linnette De La O RN Position: [facility] KITCHEN AND COUNTER WORKER No Tools Member Role: Primary Care Nurse Name: Alina Castillo NP Position: [facility] Associate Professional Member Role: Primary Care Nurse Address: Address: [address] [place] [address]- [place] Name: Mary Anne Kilpatrick RN Position: [facility] MR W/ Merge Member Role: Primary Care Nurse Name: Agustín Faria MD Position: [facility] Outreach Member Role: PCP Address: Address: [address] [facility] [address] [place]ín [place] [address]- [place] Name: Nicole Hernández RN Position: [facility] RN Member Role: Primary Care Nurse Name: Douglas Harris Position: [facility] Cardio/Pulm Mgr ([facility]) Member Role: Primary Care Nurse Name: Lindsay Srinivasan CNM Position: [facility] Log Chain Worker Member Role: Primary Care Nurse Address: Address: [address] [place] [address]- Name: Larissa Klein Position: [facility] RN Member Role: Primary Care Nurse Name: Karen Roa RN Position: [facility] ED RN W/OE and Tasks Member Role: Primary Care Nurse Name: Mary Alice Stevens RN Position: [facility] RN Member Role: Primary Care Nurse Name: Beverly Grey Position: [facility] RN Member Role: Primary Care Nurse Name: Alexy Geronimo RN Position: [facility] RN Member Role: Primary Care Nurse Name: Raúl Rudolph DO Position: [facility] FIELD SERVICE TECHNICIAN POULTRY MD Member Role: Lifetime FIELD SERVICE TECHNICIAN POULTRY Physician Address: Address: [address] [facility] [place] [address]- [place] Name: vEelyn Haynes RN Position: [facility] RN Member Role: Primary Care Nurse Name: Crissy Metzger RN Position: [facility] RN Member Role: Primary Care Nurse Name: Elisa Gilbert RN Position: [facility] RN Member Role: Primary Care Nurse Name: Corina Solorio RN Position: [facility] PCO RN Member Role: Primary Care Nurse Name: Shawnee Lane RN Position: [facility] ED RN W/OE and Tasks Member Role: Primary Care Nurse Name: Erna Douglass RN Position: [facility] SN RN Member Role: Primary Care Nurse Name: Keyana Ndiaye RN Position: [facility] Elementary Science Teacher Member Role: Primary Care Nurse Name: Yudy Trujillo RN Position: [facility] RN Member Role: Primary Care Nurse Name: Anabella Nicholson RN Position: [facility] AMB Nurse Member Role: Primary Care Nurse Name: Ramona Ybarra RN Position: [facility] RN Member Role: Primary Care Nurse Address: Address: [address] [place] [id number] Name: Nancy Gallagher RN Position: [facility] Elementary Science Teacher Member Role: Primary Care Nurse Name: Evelyn Allen RN Position: [facility] OB RN Member Role: Primary Care Nurse Name: Jackelin Watt RN Position: [facility] RN Member Role: Primary Care Nurse Name: Raymundo Elizabeth RN Position: [facility] SN RN Member Role: Primary Care Nurse Name: Opal Calderon RN Position: [facility] RN Member Role: Primary Care Nurse Name: Timmy RNYadiel Position: [facility] SN RN Member Role: Primary Care Nurse Care Team Related Persons Name: BARTOLOME IBRAHIM Address: home [address] [place] [address] Name: GIANLUCA IBRAHIM Address: home [address] [place] [address] Name: ABBIE IBRAHIM Address: home [address] [place] [address] Name: SIM CERDA Name: DIANE CERDA Address: home [address] [place] [address] Name: SOLO CORRIGAN Address: home [address] [place] [address] Name: SOLO FLORES Address: home [address] [place] [address] Name: RAYMUNDO MAYFIELD Address: home [address] [place] [address]
--- OUTSIDE RECORDS SUMMARY | 2024-01-27 11:28 | XMS_ITS | Continuity of Care Document ---
Author Organization [facility] Address [address] [place] [address]- Care Team Providers Care Appointment Specialist Name Role Phone Maranda WILCOX, Silvio Martinez Primary Care Physician Encounter [facility] Date(s): 01/22/21 - 02/21/21 [facility] [address] [place] [address]- Allergies, Adverse Reactions, Alerts Substance Reaction Severity [...] tablet, 0 Refills, Maintenance, 12/26/20 12:55:00 EDT, [facility] #[id number], Partial fill upon patient request if the prescription is for a schedule II opioid drug., 170, cm,... Start Date: 12/26/20 Status: Ordered Potassium Chloride = 40 mEq, By Mouth, 2 times a day, 0 Refills, Maintenance, 01/20/21 5:39:00 EDT, Partial fill upon patient request if the prescription is for a schedule II opioid drug. Start Date: 01/20/21 Status: Ordered Potassium Chloride (Gbe-Aqqv-Urb M20) 20 mEq oral tablet, extended release 1 tablet = 20 mEq, By Mouth, 2 times a day, # 10 tablet, 0 Refills, Maintenance, 01/20/21 7:48:00 EDT, [facility] #[id number], Partial fill upon patient request if the [...] Refills, Soft Stop, 10/02/20 11:57:00 EST, Powder, [facility] #[id number], Partial fill upon patient... Start Date: 10/02/20 [...] 0 Refills, Maintenance, 01/20/21 7:49:00 EDT, Tablet, [facility] #[id number], Partial fill upon patient request if the [...]
--- OUTSIDE RECORDS SUMMARY | 2024-01-27 11:29 | XMS_ITS | Continuity of Care Document ---
Author Organization [facility] Address [address] [place] [address]- Care Team Providers Care Clinical Operations Specialist Name Role Phone Bienvenido WILCOX, Agustín Joaquin Primary Care Physician Encounter [facility] Date(s): 05/02/21 - 06/01/21 [facility] [address] [place] [id number] Allergies, Adverse Reactions, Alerts [...] tablet, 0 Refills, Maintenance, 12/26/20 12:55:00 EDT, [facility] #[id number], Partial fill upon patient request if the prescription is for a schedule II opioid drug., 170, cm,... Start Date: 12/26/20 Status: Ordered Potassium Chloride = 40 mEq, By Mouth, 2 times a day, 0 Refills, Maintenance, 01/20/21 5:39:00 EDT, Partial fill upon patient request if the prescription is for a schedule II opioid drug. Start Date: 01/20/21 Status: Ordered Potassium Chloride (Prl-Rwtm-Qbi M20) 20 mEq oral tablet, extended release 1 tablet = 20 mEq, By Mouth, 2 times a day, # 10 tablet, 0 Refills, Maintenance, 01/20/21 7:48:00 EDT, [facility] #[id number], Partial fill upon patient request if the [...] 0 Refills, Maintenance, 01/20/21 7:49:00 EDT, Tablet, [facility] #[id number], Partial fill upon patient request if the [...]
--- OUTSIDE RECORDS SUMMARY | 2024-01-27 11:29 | XMS_ITS | Continuity of Care Document ---
Author Organization [facility] Address [address] [place] [address]- Care Team Providers Care Traffic Or System Dispatcher Name Role Phone Maranda WILCOX, Silvio Martinez Primary Care Physician Encounter [facility] Date(s): 10/16/20 - 01/23/[address] [address] Attending Physician: Estela Montalvo MD Admitting Physician: Estela Montalvo MD Referring Physician: Estela Montalvo MD Allergies, [...] tablet, 0 Refills, Maintenance, 12/26/20 12:55:00 EDT, [facility] #[id number], Partial fill upon patient request if the prescription is for a schedule II opioid drug., 170, cm,... Start Date: 12/26/20 Status: Ordered Potassium Chloride = 40 mEq, By Mouth, 2 times a day, 0 Refills, Maintenance, 01/20/21 5:39:00 EDT, Partial fill upon patient request if the prescription is for a schedule II opioid drug. Start Date: 01/20/21 Status: Ordered Potassium Chloride (Fnp-Hpsa-Kyn M20) 20 mEq oral tablet, extended release 1 tablet = 20 mEq, By Mouth, 2 times a day, # 10 tablet, 0 Refills, Maintenance, 01/20/21 7:48:00 EDT, [facility] #[id number], Partial fill upon patient request if the [...] Refills, Soft Stop, 10/02/20 11:57:00 EST, Powder, [facility] #[id number], Partial fill upon patient... Start Date: 10/02/20 [...] 0 Refills, Maintenance, 01/20/21 7:49:00 EDT, Tablet, [facility] #[id number], Partial fill upon patient request if the [...]
--- OUTSIDE RECORDS SUMMARY | 2024-01-27 11:29 | XMS_ITS | Continuity of Care Document ---
Author Organization [facility] Address [address] [place] [address] [address] [place] [address]- Care Team Providers Care Claim Administrator Name Role Phone Maradna WILCOX, Silvio Martinez Primary Care Physician Encounter [facility] Date(s): 05/23/20 - 06/22/[address] [place] [address]- [facility] Attending Physician: Maximo Cano Admitting Physician: [...] mL, Refills 11, Tot. Refills 11, Maintenance, [facility]: [id number], 05/08/20 16:20:00 EDT, Supply, 169, cm, 04/15/20 [...] capsule, 1 Refills, Maintenance, 10/21/19 11:17:00 EST, [facility] #[id number], 1 capsule By Mouth 3 times a [...] 04/09/21 14:58:00 EDT, 04/09/20 14:57:00 EDT, Tablet, [facility] #[id number], 169, cm, 04/05/20 12:55:00 EDT, Height, 85, [...] tablet, 3 Refills, Maintenance, 05/28/20 11:56:00 EDT, [facility] #[id number], 170, cm, 05/27/20 0:11:00 EDT, Height,90.4, kg, [...] Acute 04/30/21 16:58:00 EDT, 04/30/20 16:57:00 EDT, [facility] #[id number], 169, cm, 04/15/20 17:38:00 EDT, Height, 85, kg, 03/15/20 2:33:00 EDT, Dry Weight Start Date: 04/30/20 Stop Date: 04/30/21 Status: Ordered methylprednisolone 2 gm injectable powder for injection See Instructions, inject 4 grams IM for adrenal crisis, # 48 Gm, 11 Refills, Acute 06/08/21 12:08:00 EDT, 05/03/21 10:04:00 EDT, [facility]acy #1111, 169, cm, 04/15/20 17:38:00 EDT, Height, 85, kg, 03/15/20 2:33:00 EDT, Dry Weight Start Date: 05/03/21 Stop Date: 06/08/21 Status: Ordered methylprednisolone 2 gm injectable powder for injection See Instructions, inject 4 grams IM for adrenal crisis, # 48 Gm, 3 Refills, Acute 05/03/21 10:04:00EDT, 05/03/20 10:03:00 EDT, [facility] #[id number], 169, cm, 04/15/20 17:38:00 EDT, Height, 85, kg, 03/15/20 2:33:00 EDT, Dry Weight Start Date: 05/03/20 Stop Date: 05/03/21 Status: Ordered methylprednisolone 2 gm injectable powder for injection See Instructions, inject 4 grams IM for adrenal crisis, # 48 Gm, 3 Refills, Acute 05/03/21 11:58:00EDT, 05/03/21 10:04:00 EDT, [facility], 169, cm, 04/15/20 17:38:00 EDT, [...] 0 Refills, Maintenance, 06/18/20 16:48:00 EDT, Tablet, [facility] #[id number], 170, cm, 06/18/20 15:14:00 EDT, Height, 90.4, [...] 11 Refills, Soft Stop, 05/03/20 16:07:00 EDT, [facility] #[id number], 169, cm, 04/15/20 17:38:00 EDT, Height, 85, [...] Refills, Maintenance, 12/05/19 20:49:00 EDT, DIS Tablet, [facility] #[id number], 170, cm, 12/05/19 19:19:00 EDT, Height, 88.7, [...]
--- OUTSIDE RECORDS SUMMARY | 2024-01-27 11:29 | XMS_ITS | Continuity of Care Document ---
Author Organization [facility] Address [address] [place] [address]- Care Team Providers Care Supervisor Coremaker Name Role Phone Dash WILCOX ([place]), Paola Anderson Primary Care Physician Encounter [facility] Date(s): 06/23/23 - 06/24/[address] [address]- Encounter Diagnosis Abdominal pain(Final) - 06/24/23 Precordial chest pain(Final) - 06/24/23 Vomiting(Final) - 06/24/23 Discharge Disposition: A-D/C Home Attending Physician: Sharmila García DO Admitting Physician: Sharmila García DO Referring Physician: Not on Staff, Referring MD Allergies, Adverse Reactions, Alerts Substance Reaction Severity Status propranolol Rash Active droperidol-fentanyl 1 Active Cefzil Hives Active Reglan severe anxiety~panic Active Xarelto rash Active Zoloft tachycardia n/v Active Nardil Palpitations - rapid N&V - Nausea and vomiting C/O - a headache Active Inderal n/v,tachcardia Active Haldol Active Compazine severe anxiety Hives Active Lexapro n/v Active 1Only allergic to [...] Other : Medications (Vitamin D3) Cholecalciferol 400 SHELTER units/mL oral syringe 1 mL = 10 [...] tablet, 3 Refills, Maintenance, 08/17/22 15:43:00 EST, [facility] #[id number], 170, cm, 05/13/22 17:18:00 EDT, Height, 88.8, [...] 01/08/21 13:59:00 EDT, Route to Pharmacy Electronically, [facility] #[id number], Partial fill upon patient request if the prescription is for a sched... Start Date: 01/08/21 Status: Ordered Flonase 50 mcg/inh nasal spray 2 sprays, Nares, Both, 2 times a day, PRN Congestion, # 16 Gm, 0 Refills, Maintenance, 08/20/20 11:17:00 EST, [place], [facility] #[id number], Partial fill upon patient request if the prescriptionis for a schedule II opioid drug., 170, cm, 2... Start Date: 08/20/20 Status: Ordered gabapentin 300 mg oral capsule See Instructions, 1 cap in the AM, 2 in the afternoon and 2 at bedtime, # 1 each, Refills 4, Tot. Refills 4, Maintenance, 11/11/22 15:13:00 EST, Instructions Replace Required Details, Route to Pharmacy Electronically, [facility] #[id number], Part... Start Date: 11/11/22 Status: Ordered Insulin [...] 05/14/23 20:59:00 EDT, Route to Pharmacy Electronically, [facility] #[id number], Partial fill upon patient request if the [...] Inj 4 mg, Injection, IV Push Slowly, Once, STAT, 06/24/23 1:58:00 EDT, Stop date 06/24/23 1:58:00 EDT Start Date: 06/24/23 Stop Date: 06/24/23 Status: Completed ondansetron 4 mg oral tablet, disintegrating 2 tablet = 8 mg, By Mouth, Every 8 hours, PRN Nausea & Vomiting, # 1 tablet, 0 Refills, Maintenance, 05/13/23 10:33:00 EDT, Tablet, [facility] #[id number], Partial fill upon patient request if the prescription is for a schedule II opioid drug., 1... Start Date: 05/13/23 Stop Date: 05/16/23 Status: Ordered prazosin 2 mg oral capsule 2 capsule = 4 mg, By Mouth, Daily at bedtime, if PO intake is low or BP low below 110/70 only take one cap, # 60 capsule, 4 Refills, Maintenance, 11/11/22 15:17:00 EST, [facility] #[id number], Partial fill upon patient request if the [...] 03/10/23 15:36:00 EDT, Route to Pharmacy Electronically, [facility] #[id number], Partial fill upon patient request if the [...] Refills, Soft Stop, 05/27/23 14:16:00 EDT, Powder, [facility] #[id number], Partial fill upon patient... Start Date: 05/27/23 Status: Ordered spironolactone 25 mg oral tablet 25 mg, 1, tablet, By Mouth, Daily, # 30 tablet, Refills 3, Tot. Refills 3, Maintenance, 05/14/23 20:55:00 EDT, Route to Pharmacy Electronically, [facility] #[id number], Partial fill upon patientrequest if the prescription [...] Exam Date Time Procedure Performing Provider Status 06/24/23 12:[address] Abdomen and Pelvi s W/O Contrast Anahi Lucas; Auth (Verified) Notes: (CT Abdomen and Pelvis W/O Contrast) Reason For Exam: Pain RESULT: CT Abdomen and Pelvis W/O Contrast CT Abdomen and Pelvis W/O Contrast INDICATION/CLINICAL QUESTION: Chest pain. Abdominal pain. Vomiting blood. Flank pain.. TECHNIQUE: Spiral CT through the abdomen and pelvis without IV contrast formatted in 3 planes. The study was performed without oral contrast. Weight- based protocol using automatic tube modulation wasused to optimize exposure parameters. COMPARISON: 05/09/2013. FINDINGS: Retail Director View Findings, Lines and Tubes: None.. Lower chest: There are no pleural effusions. There is no pericardial effusion. Diaphragm: Unremarkable. Liver: Multiple small liver cysts unchanged.. Gallbladder: Surgically absent. Bile ducts: No intra or extra hepatic bile duct dilation. . Spleen: Normal. Pancreas: Normal. Adrenal Glands: Normal. Kidneys: Right Kidney: Normal. Left Kidney: Normal. Bladder: Normal. Blood vessels: No aneurysm of abdominal aorta or iliac arteries. . Stomach, Small bowel and Large Bowel: Stomach: No gross abnormality seen. Small Bowel: No small bowel dilatation or gross inflammatory change. Large Bowel: No large bowel dilatation or gross inflammatory change. Moderate stool right colon and transverse colon. The Appendix is not identified and likely surgically absent.. Reproductive/Pelvic organs: There is no pelvic mass or fluid collection. Peritoneum, Retroperitoneum, Omentum, and Mesentery: There is no free air. There is no ascites. Lymph nodes: No adenopathy. Abdominal wall: No abdominal wall hernia. Bones: No compression fracture, spondylolysis, or spondylolisthesis. Prior fusion L4-L5. No fracture bony pelvis or proximal femurs. IMPRESSION: 1. No clear explanation for the patient's pain, including no bowel obstruction, hydronephrosis, renal stone disease, diverticulitis, or abscess. 2. Moderately prominent stool in right colon and transverse colon which can be correlated clinically. 2. WSN: [id number] Ordering Physician: Sharmila García Dictated By: Michael Rubi MD Dictated Date/Time: 06/24/23 8:20 am Reviewed By: Michael Rubi MD Signed By: Michael Rubi MD Signed Date/Time: 06/24/23 8:20 am Transcribed By: DIANE Transcribed Date/Time: 06/24/23 8:11 am * Exam Date Time Procedure Performing Provider Status 06/24/23 12:41 AM Chest 2 Views Frontal and Lat Anahi Bravo; Auth (Verified) Notes: (Chest 2 Views Frontal and Lat) Reason For Exam: Chest Pain;Other: RESULT: Chest 2 Views Frontal and Lat Chest 2 Views Frontal and Lat Hx of Present Illness: Right sided chest pain, left arm pain x 12 hours. Pt took nitro x 3 at home prior to calling 911. EMS reports NSR on 12 lead, administered ASA 324 and 1 SL nitro. Pt also reports vomiting blood, flank pain and dark stool- all chronic complaints.; Reason: Other:; Chest Pain; Clinical Question(s): Other: COMPARISON: Multiple prior chest radiographs with the most recent dated 06/15/2023. FINDINGS: LINES AND TUBES: Dual-lead left subclavian pacer/AICD wires are intact. LUNGS AND PLEURA: Clear lungs. Normal pulmonary vascularity. No pleural effusion. No pneumothorax. HEART, MEDIASTINUM AND DAGOBERTO: Heart is normal in size. Normal mediastinal and hilar contour. BONES AND SOFT TISSUES: No acute abnormality. IMPRESSION: No acute abnormality. WSN: [id number] Ordering Physician: True Sanford Dictated By: Daniel Longoria MD, V Dictated Date/Time: 06/24/23 7:54 am Reviewed By: Daniel Longoria MD, V Signed By: Daniel Longoria MD, V Signed Date/Time: 06/24/23 7:54 am Transcribed By: DIANE Transcribed Date/Time: 06/24/23 7:53 am Vital Signs Most recent to oldest [Reference Range]: 1 2 3 Height 170 cm (06/24/23 2:46 AM) 170 cm (06/24/23 12:08 AM) 170 cm (06/23/23 9:37 PM) Weight 90 kg (06/24/23 2:46 AM) 90 kg (06/24/23 12:08 AM) 90 kg (06/23/23 9:37 PM) Oxygen Saturation [94-100 %] 100 % (06/24/23 2:46 AM) 99 % (06/24/23 12:08 AM) 98 % (06/23/23 9:33 PM) Pulse Rate [55-90 bpm] 56 bpm (06/24/23 2:46 AM) 73 bpm (06/24/23 12:08 AM) 66 bpm (06/23/23 9:33 PM) Body Mass Index [18.5-24.99 kg/m2] 31.14 kg/m2 *>HHI* (06/24/23 2:46 AM) 31.14 kg/m2 *>HHI* (06/24/23 12:08 AM) Blood Pressure [90-138/55-84 mm Hg] 103/52mm Hg (06/24/23 2:46 AM) 109/66mm Hg (06/24/23 12:08 AM) 108/85mm Hg (06/23/23 9:33 PM) Respiratory Rate [16-30 br/min] 17 br/min (06/24/23 2:46 AM) 16 br/min (06/24/23 2:35 AM) 16 br/min (06/24/23 2:05 AM) Temperature [96.8-100.4 DegF] 97.9 DegF (06/24/23 2:46 AM) 98.4 DegF (06/23/23 9:33 PM) Mode of Delivery (Oxygen) Room air (06/24/23 2:46 AM) Room air (06/24/23 12:08 AM) Room air (06/23/23 9:33 PM) Blood pressure sites Arm, right (06/24/23 2:46 AM) Arm, left (06/24/23 12:08 AM) Arm, right (06/23/23 9:33 PM) Temperature Route Oral (06/24/23 2:46 AM) Oral (06/23/23 9:33 PM) Dry Weight 90 kg (06/24/23 2:46 AM) 90 kg (06/24/23 12:08 AM) 90 kg (06/23/23 9:37 PM) Weight Obtained Via Patient/family state d (06/23/23 9:37 PM) Social History Social History Type Response [...] Unknown Unknown Active Un known Note * Sharmila Gracía DO: PERFORM, SIGN, VERIFY Event Display: Patient Education Handout Authored Date: [id number] * Sharmila García DO: PERFORM Event Display: Patient Education Leaflets Authored Date: [id number] Vomiting (Adult) ?? [id number] Vomiting (Adult) Vomiting is a common symptom [...] soap and clean, running water or alcohol-based film splicer to keep from spreading the infection to [...] symptoms ?? Last Reviewed Date: 2021 ?? [id number] [employer]. All rights reserved. This information is not intended as a substitute for professional medical care. Always follow your healthcare professional's instructions. ?? * Sharmila García DO: PERFORM Event Display: Patient Education Leaflets Authored Date: [id number] Noncardiac Chest Pain ?? [id number] Noncardiac Chest Pain In most cases, people who come to the emergency room with chest pain don???t have a problem with their heart. Instead, the pain is caused by other conditions. It's important for the healthcare team to be sure you are not having a life-threatening cause for chest pain such as: ??? Heart attack ??? Blood clot in the lungs ??? Collapsed lung ??? Ruptured esophagus ??? Tearing of the aorta Once these major causes have been ruled out, you may have further evaluation for other causes of chest pain. These may be problems with the lungs, muscles, bones, digestive tract, nerves, or mental health. They include: ??? Inflammation around the lungs (pleurisy) ??? Collapsed lung (pneumothorax) ??? Lung inflammation (pleuritis or pneumonitis) ??? Fluid around the lung (pleural effusion) ??? Lung cancer (rare cause of chest pain) ??? Inflamed cartilage between the ribs (costochondritis) ??? Fibromyalgia ??? Rheumatoid arthritis ??? Chest wall strain ??? Reflux ??? Stomach ulcer ??? Spasms of the esophagus ??? Gall stones ??? Gallbladder inflammation ??? Panic or anxiety attacks ??? Emotional distress Your pain doesn???t seem to be coming from your heart. But sometimes the signs of a serious problemtake more time to appear. Continue to watch for the warning signs listed below. Home care Follow these guidelines when caring for yourself at home: ??? Rest today and don't do any strenuousactivity. ??? Take any prescribed medicine as directed. ?? Follow-up care Follow up with your healthcare provider as advised. ?? Call 911 Call 911 if any of these occur: ??? A change in the type of pain: if it feels different, becomes more severe, lasts longer, or begins to spread into your shoulder, arm, neck, jaw or back ??? Shortness of breath or increased pain with breathing ??? Weakness, dizziness, or fainting ??? Rapid heart beat ??? Crushing sensation in your chest ?? When to seek medical advice Call your healthcare provider right away if any of these occur: ??? Cough with dark colored sputum (phlegm) or blood ??? Fever of 100.4??F (38??C) or higher, or as directed by your healthcare provider ??? Swelling, pain or redness in one leg ?? Last Reviewed Date: 2021 ?? [id number] [employer]. All rights reserved. This information is not intended as a substitute for professional medical care. Always follow your healthcare professional's instructions. ?? Patient Care team information Care Team Personnel Name: Dash WILCOX (IN) , Paola Anderson Position: [facility] Outreach Member Role: PCP Address: Address: [address] [place] [id number] [place] Name: Daina Ibrahim RN Position: [facility] ED RN W/OE and Tasks Member Role: Primary Care Nurse Name: Madeline Baird RN Position: [facility] ED RN W/OE and Tasks Member Role: Primary Care Nurse Name: Teresa Carpio Position: [facility] RN Member Role: Primary Care Nurse Name: Inge Elizabeth RN Position: [facility] SN RN Member Role: Primary Care Nurse Name: Kelley Prasad RN Position: [facility] RN Member Role: Primary Care Nurse Name: Cindy Medeiros RN Position: [facility] RN Member Role: Primary Care Nurse Name: Linnette De La O RN Position: [facility] FRENCH WEAVER Member Role: Primary Care Nurse Name: Alina Castillo NP Position: [facility] Associate Professional Member Role: Primary Care Nurse Address: Address: [address] [place] [address]- [place] Name: Mary Anne Kilpatrick RN Position: [facility] MR W/ Merge Member Role: Primary Care Nurse Name: Nicole Hernández RN Position: [facility] RN Member Role: Primary Care Nurse Name: Lindsay Srinivasan CNM Position: [facility] Life Assurance Representative Member Role: Primary Care Nurse Address: Address: [address] [place] [address] [place] [address]- [place] Name: Larissa Olson [place] Position: [facility] RN Member Role: Primary Care Nurse Name: Karen Roa RN Position: [facility] ED RN W/OE and Tasks Member Role: Primary Care Nurse Name: Mary Alice Stevens RN Position: [facility] RN Member Role: Primary Care Nurse Name: Beverly Grey Position: [facility] RN Member Role: Primary Care Nurse Name: Alexy Geronimo RN Position: [facility] RN Member Role: Primary Care Nurse Name: Raúl Rudolph DO Position: [facility] COLOR STRAINER MD Member Role: Lifetime COLOR STRAINER Physician Address: Address: [address] [place] [address] [facility] [place] [address]- Name: Evelyn Haynes RN Position: [facility] RN Member Role: Primary Care Nurse Name: Crissy Metzger RN Position: [facility] RN Member Role: Primary Care Nurse Name: Elisa Gilbert RN Position: [facility] RN Member Role: Primary Care Nurse Name: Corina Solorio RN Position: [facility] AMB Nurse Member Role: Primary Care Nurse Name: Shawnee Lane RN Position: [facility] ED RN W/OE and Tasks Member Role: Primary Care Nurse Name: Erna Douglass RN Position: [facility] RN Member Role: Primary Care Nurse Name: Keyana Ndiaye RN Position: [facility] Stove Carriage Operator Member Role: Primary Care Nurse Name: Anabella Nicholson RN Position: [facility] AMB Nurse Member Role: Primary Care Nurse Name: Brenda Tomas RN Position: [facility] Outreach Member Role: Primary Care Nurse Name: Ramona Ybarra RN Position: [facility] RN Member Role: Primary Care Nurse Address: Address: [address] [place] [address]- Name: Nancy Gallagher RN Position: [facility] Stove Carriage Operator Member Role: Primary Care Nurse Name: Evelyn Allen RN Position: [facility] OB RN Member Role: Primary Care Nurse Name: Jackelin Watt RN Position: [facility] RN Member Role: Primary Care Nurse Name: Raymundo Elizabeth RN Position: [facility] SN RN Member Role: Primary Care Nurse Name: Opal Calderon RN Position: [facility] RN Member Role: Primary Care Nurse Name: Yadiel Warner RN Position: [facility] SN RN Member Role: Primary Care Nurse Name: Wendy Rondon RN Position: [facility] ED RN W/OE and Tasks Member Role: Patient Care Provider Name: Vanesa Watson RN Position: [facility] ED RN W/OE and Tasks Member Role: Patient Care Provider Name: Sharmila García DO Position: [facility] ED Medicine MD Member Role: ED Attending Physician Address: Address: [address] [place] [address] Emergency Medicine [place], [place] [address] Name: Hardy Sheila Position: [facility] ED TA [facility] Member Role: Infrastructure Engineer Care Team Related Persons Name: BARTOLOME IBRAHIM Address: home [address] [place], [place] Name: GIANLUCA IBRAHIM Address: home [address] [place] [address] Name: ABBIE IBRAHIM Address: home [address] [place] [address] Name: SIM CERDA Name: DIANE CERDA Address: home [address] [place] [id number] Name: SOLO CORRIGAN Address: home [address] [place] [address] Name: SOLO FLORES Address: home [address] [place] [address] Name: RAYMUNDO MAYFIELD Address: home [address] [place] [address]
--- OUTSIDE RECORDS SUMMARY | 2024-01-27 11:29 | XMS_ITS | Continuity of Care Document ---
Author Organization [facility] Address [address] [place] [address]- Care Team Providers Care Early Childhood Assistant Name Role Phone Maranda WILCOX, Silvio Martinez Primary Care Physician [place] [facility] [place]27[place] - 12/27/20 [facility] [address] [place] [address]- Allergies, Adverse Reactions, Alerts Substance Reaction Severity [...] capsule, 1 Refills, Maintenance, 10/21/19 11:17:00 EST, [facility] #[id number], 1 capsule By Mouth 3 times a day,Instr:with each meal and snack, 170, cm, 10/20/19 13:48:00 EST, H... Start Date: 10/21/19 Status: Ordered diphenhydrAMINE 25 mg oral tablet = 50 mg, By Mouth, 4 times a day, PRN as needed for itching, for 3 days, # 10 tablet, 0 Refills, Acute 12/29/20 12:55:00 EDT, 12/26/20 12:55:00 EDT, Tablet, [facility] #[id number], Partial fill upon patient request if the [...] 04/09/21 14:58:00 EDT, 04/09/20 14:57:00 EDT, Tablet, [facility] #[id number], 169, cm, 04/05/20 12:55:00 EDT, Height, 85, [...] 3 Refills, Maintenance, 10/16/20 16:21:00 EST, Tablet, [facility] #[id number], Partial fill upon patient request if the prescription is for a schedul... Start Date: 10/16/20 Stop Date: 02/13/21 Status: Ordered ondansetron 8 mg oral tablet, disintegrating 1 tablet = 8 mg, By Mouth, 3 times a day, PRN Nausea & Vomiting, # 30 tablet, 0 Refills, Maintenance, 12/26/20 12:55:00 EDT, [facility] #[id number], Partial fill upon patient request if the prescription is for a schedule II opioid drug., 170, cm,... Start Date: 12/26/20 Status: Ordered oxyCODONE 5 mg oral tablet 5 mg, 1, tablet, By Mouth, Every 6 hours, PRN, for 2 days, # 7 tablet, Refills 0, Tot. Refills 0, Acute 12/28/20 12:56:00 EDT, as needed for pain, 12/26/20 12:56:00 EDT, Route to Pharmacy Electronically, [facility] #[id number], Partial fill upon... Start Date: 12/26/20 Stop Date: 12/28/20 Status: Ordered potassium chloride 20 mEq oral tablet, extended release 1 tablet = 20 mEq, By Mouth, Daily, # 30 tablet, 7 Refills, Maintenance, 12/26/20 12:54:00 EDT, ER Tablet, [facility] #[id number], 170, cm, 12/26/20 9:55:00 EDT, Height, 84.65, [...] Refills, Soft Stop, 10/02/20 11:57:00 EST, Powder, [facility] #[id number], Partial fill upon patient... Start Date: 10/02/20 [...]
--- OUTSIDE RECORDS SUMMARY | 2024-01-27 11:29 | XMS_ITS | Continuity of Care Document ---
Author Organization [facility] Address [address] [place] [address]- Care Team Providers Care Constitutional Law Professor Name Role Phone Agustín Faria MD Primary Care Physician Encounter [facility] Date(s): 12/07/21 - 12/08/[address] [address]- Encounter Diagnosis Weakness(Final) - 12/08/21 Discharge Disposition: A-D/C Home Attending Physician: Kenneth [...] headache Active Inderal n/v,tachcardia Active Haldol Active Lexapro n/v Active Immunizations Given and [...] Date: 10/27/21 Stop Date: 02/24/22 Status: Ordered Banophen 25 mg oral tablet [...] tablet, 0 Refills, Maintenance, 12/26/20 12:55:00 EDT, [facility] #[id number], Partial fill upon patient request if the [...] Refills, Soft Stop, 10/27/21 14:15:00 EST, [place], [facility][id number], Partial fill upon patient... Start Date: 10/27/21 Status: Ordered Problem List Condition Effective Dates [...] oldest [Reference Range]: 1 2 3 Height 171 cm (12/08/21 1:05 AM) 171 cm (12/07/21 9:42 PM) 171 cm (12/07/21 9:40 PM) Weight 82.1 kg (12/08/21 1:05 AM) 82.1 kg (12/07/21 9:42 PM) 82.1 kg (12/07/21 9:40 PM) Oxygen Saturation [94-100 %] 99 % (12/08/21 1:05 AM) 98 % (12/07/21 9:40 PM) Pulse Rate [55-90 bpm] 67 bpm (12/08/21 1:05 AM) 102 bpm *H* (12/07/21 9:40 PM) Body Mass Index [18.5-24.99] 28.08 *H* (12/08/21 1:05 AM) 28.08 *H* (12/07/21 9:40 PM) Blood Pressure [90-138/55-84 mm Hg] 133/88mm Hg (12/08/21 1:05 AM) 137/87mm Hg (12/07/21 9:40 PM) Respiratory Rate [16-30 br/min] 16 br/min (12/08/21 1:05 AM) 15 br/min *L* (12/07/21 9:40 PM) Temperature [96.8-100.4 DegF] 98.2 DegF (12/08/21 1:05 AM) 98.4 DegF (12/07/21 9:40 PM) Mode of Delivery (Oxygen) Room air (12/08/21 1:05 AM) Room air (12/07/21 9:40 PM) Blood pressure sites Arm, left (12/08/21 1:05 AM) Arm, left (12/07/21 9:40 PM) Temperature Route Oral (12/08/21 1:05 AM) Oral (12/07/21 9:40 PM) Dry Weight 82.1 kg (12/08/21 1:05 AM) 82.1 kg (12/07/21 9:42 PM) 82.1 kg (12/07/21 9:40 PM) Weight Obtained Via Standing scale (12/07/21 9:40 PM) Dry Weight Obtained Via Standing scale (12/07/21 9:40 PM) Social History Social History Type Response Smoking Status Current every day rowan munoz; Previous treatment: Counseling; Previous treatment: Nicotine replacement; Other: 1/2 ppd x 20 yrs; entered on: 09/16/16 Sex Medical Equipment Implanted Date:07/09/21Target Site:[place] Description Quantity MRI Company Model STENT STRETCH VL 6FR - BSCI (770-204) 1 [employer] Amanda Unknown GO:No Information Assigning Authority: FDA
--- OUTSIDE RECORDS SUMMARY | 2024-01-27 11:29 | XMS_ITS | Continuity of Care Document ---
Author Organization [facility] Address [address] [place] [address]- Care Team Providers Care Switchboard Mechanic Name Role Phone Agustín Faria MD Primary Care Physician Encounter [facility] [place] Date(s): 11/10/21 - 12/10/[address] [facility] [address] [address] [place] [id number] [[email or web address]] Attending Physician: Maximo Cano Admitting Physician: AdmMaximo diaz Referring Physician: Admtr, Ankur8 Allergies, Adverse Reactions, Alerts Substance Reaction Severity [...] tablet, 0 Refills, Maintenance, 12/26/20 12:55:00 EDT, [facility] #[id number], Partial fill upon patient request if the [...] Refills, Soft Stop, 10/27/21 14:15:00 EST, Powder, [facility] #[id number], Partial fill upon patient... Start Date: 10/27/21 [...] Model STENT STRETCH VL 6FR - [employer]SCI (684-841) 1 [employer] Amanda Unknown GO:No Information Assigning Authority: FDA
--- OUTSIDE RECORDS SUMMARY | 2024-01-27 11:29 | XMS_ITS | Continuity of Care Document ---
Author Organization [facility] Address [address] [place] [address]- Care Team Providers Care Legal Practice Manager Name Role Phone Bienvenido WILCOX, Agustín Joaquin Primary Care Physician [place] [facility] [place](s): 03/18/23 - 04/17/23 [facility] [address] [place] [address]- Allergies, Adverse Reactions, Alerts Substance Reaction Severity [...] Other : Medications (Vitamin D3) Cholecalciferol 400 INTERMEDIATE units/mL oral syringe 1 mL = 10 [...] 12/31/22 14:22:00 EDT, Route to Pharmacy Electronically, [facility] #[id number], Partial fill upon patient request if the prescription is for a schedule II opi... Start Date: 12/31/22 Status: Ordered Aspirin Low Dose 81 mg oral delayed release tablet 1 tablet, By Mouth, Daily, # 30 tablet, 3 Refills, Maintenance, 08/17/22 15:43:00 EST, [facility] #[id number], 170, cm, 05/13/22 17:18:00 EDT, Height, 88.8, [...] 01/08/21 13:59:00 EDT, Route to Pharmacy Electronically, [facility] #[id number], Partial fill upon patient request if the prescription is for a sched... Start Date: 01/08/21 Status: Ordered Flonase 50 mcg/inh nasal spray 2 sprays, Nares, Both, 2 times a day, PRN Congestion, # 16 Gm, 0 Refills, Maintenance, 08/20/20 11:17:00 EST, [place], [facility] #[id number], Partial fill upon patient request if the prescriptionis for a schedule II opioid drug., 170, cm, ... Start Date: 08/20/20 Status: Ordered gabapentin 300 mg oral capsule 300 mg, 1, capsule, By Mouth, 2 times a day, # 60 capsule, Refills 4, Tot. Refills 4, Maintenance, 11/11/22 15:13:00 EST, Route to Pharmacy Electronically, [facility] #[id number], Partial fill upon patient request if the [...] 12/31/22 14:22:00 EDT, Route to Pharmacy Electronically, [facility] #[id number], Partial fill upon patient request if the prescription is for a sched... Start Date: 12/31/22 Stop Date: 12/26/23 Status: Ordered KlonoPIN 1 mg oral tablet 1 tablet = 1 mg, By Mouth, 2 times a day, dose is BID, # 60 tablet, 4 Refills, Maintenance, 03/10/23 15:33:00 EDT, [facility] #[id number], NO EARLY REFILLS, 170, cm, 02/01/23 7:48:00 [...] tablet, 0 Refills, Maintenance, 12/31/22 14:21:00 EDT, [facility] #[id number], Partial fill upon patient request if the prescription is for a schedule II opioid drug., 170, cm, 12/31/22 13:57:00 ED... Start Date: 12/31/22 Status: Ordered nitroglycerin 0.4 mg sublingual tablet 1 tablet, Sublingual, Every 5 minutes, PRN NEEDED FOR CHEST PAIN MAX 3 DOSES IN 15 MINUTES IF PAIN PERSISTS CALL 911, # 100 tablet, 3 Refills, Maintenance, 12/21/22 11:43:00 EDT, [facility] #[id number], 170, cm, 05/13/22 17:18:00 EDT, Height,... Start Date: 12/21/22 Status: Ordered ondansetron 8 mg oral tablet, disintegrating 1 tablet = 8 mg, By Mouth, 3 times a day, PRN Nausea & Vomiting, # 30 tablet, 0 Refills, Maintenance, 12/26/20 12:55:00 EDT, [facility] #[id number], Partial fill upon patient request if the [...] capsule, 4 Refills, Maintenance, 11/11/22 15:17:00 EST, [facility] #[id number], Partial fill upon patient request if the [...] 03/10/23 15:36:00 EDT, Route to Pharmacy Electronically, [facility] #[id number], Partial fill upon patient request if the [...] Refills, Soft Stop, 04/20/22 10:54:00 EDT, Powder, [facility] #[id number], Partial fill upon patient... Start Date: 04/20/22 Status: Ordered spironolactone 25 mg oral tablet 25 mg, 1, tablet, By Mouth, Daily, # 90 tablet, Refills 3, Tot. Refills 3, Maintenance, 09/13/22 16:11:00 EST, Route to Pharmacy Electronically, [facility] #[id number], Partial fill upon patientrequest if the prescription is for a schedule II op... Start Date: 09/13/22 Stop Date: 09/08/23 Status: Ordered traZODone 300 mg oral tablet 1 tablet = 300 mg, By Mouth, Daily at bedtime, # 30 tablet, 4 Refills, Maintenance, 11/11/22 15:09:00 EST, [facility] #[id number], Partial fill upon patient request if the [...] Team Personnel Name: Daina Ibrahim RN Position: [facility] ED RN W/OE and Tasks Member Role: Primary Care Nurse Name: Madeline Baird RN Position: [facility] ED RN W/OE and Tasks Member Role: Primary Care Nurse Name: Teresa Carpio Position: [facility] RN Member Role: Primary Care Nurse Name: Inge Elizabeth RN Position: [facility] SN RN Member Role: Primary Care Nurse Name: Kelley Prasad RN Position: [facility] RN Member Role: Primary Care Nurse Name: Cindy Medeiros RN Position: [facility] RN Member Role: Primary Care Nurse Name: Linnette De La O RN Position: [facility] SHOE RECONDITIONER Member Role: Primary Care Nurse Name: Alina Castillo NP Position: [facility] Associate Professional Member Role: Primary Care Nurse Address: Address: [address] [place] [address]- [place] Name: Mary Anne Kilpatrick RN Position: [facility] MR W/ Merge Member Role: Primary Care Nurse Name: Agustín Faria MD Position: [facility] Outreach Member Role: PCP Address: Address: [address] [facility] [address] Ag[place]ín [place] [address]- [place] Name: Nicole Hernández RN Position: [facility] RN Member Role: Primary Care Nurse Name: Douglas Harris Position: [facility] Cardio/Pulm Mgr ([facility]) Member Role: Primary Care Nurse Name: Lindsay Srinivasan CNM Position: [facility] Small Offset Printer Member Role: Primary Care Nurse Address: Address: [address] [facility] [place] [address]- [place] Name: Larissa Olson [place] Position: [facility] RN Member Role: Primary Care Nurse Name: Karen Roa RN Position: [facility] ED RN W/OE and Tasks Member Role: Primary Care Nurse Name: Mary Alice Stevens RN Position: [facility] RN Member Role: Primary Care Nurse Name: Beverly Grey Position: [facility] RN Member Role: Primary Care Nurse Name: Alexy Geronimo RN Position: [facility] RN Member Role: Primary Care Nurse Name: Raúl Rudolph DO Position: [facility] PROFESSIONAL SYSTEM ADMINISTRATOR MD Member Role: [employer] PROFESSIONAL SYSTEM ADMINISTRATOR Physician Address: Address: [address] [facility] [place] [address]- [place] Name: Evelyn Haynes RN Position: [facility] RN Member Role: Primary Care Nurse Name: Crissy Metzger RN Position: [facility] RN Member Role: Primary Care Nurse Name: Elisa Gilbert RN Position: [facility] RN Member Role: Primary Care Nurse Name: Corina Solorio RN Position: [facility] SN RN Member Role: Primary Care Nurse Name: Shawnee Lane RN Position: [facility] ED RN W/OE and Tasks Member Role: Primary Care Nurse Name: Erna Douglass RN Position: [facility] SN RN Member Role: Primary Care Nurse Name: Keyana Ndiaye RN Position: [facility] Hospital Consumer Loan Manager Member Role: Primary Care Nurse Name: Anabella Nicholson RN Position: [facility] AMB Nurse Member Role: Primary Care Nurse Name: Brenda Tomas RN Position: [facility] Outreach Member Role: Primary Care Nurse Name: Ramona Ybarra RN Position: [facility] RN Member Role: Primary Care Nurse Address: Address: [address] [place] [address]- Name: Nancy Gallagher RN Position: [facility] Hospital Consumer Loan Manager Member Role: Primary Care Nurse Name: Evelyn Allen RN Position: [facility] OB RN Member Role: Primary Care Nurse Name: Jackelin Watt RN Position: [facility] RN Member Role: Primary Care Nurse Name: Raymundo Elizabeth RN Position: [facility] SN RN Member Role: Primary Care Nurse Name: Opal Calderon RN Position: [facility] RN Member Role: Primary Care Nurse Name: Timmy RNYadiel Position: [facility] SN RN Member Role: Primary Care Nurse Care Team Related Persons Name: BARTOLOME IBRAHIM Address: [address] [place], [place] Name: GIANLUCA IBRAHIM Address: [address] [place], [place] Name: ABBIE IBRAHIM Address: [address] [place], [place] Name: SIM CERDA Name: DIANE CERDA Address: [address] [place] [address] Name: SOLO CORRIGAN Address: [address] [place] [address] Name: SOLO FLORES Address: [address] [place], [place] Name: RAYMUNDO MAYFIELD Address: [address] [place] [address]
--- OUTSIDE RECORDS SUMMARY | 2024-01-27 11:29 | XMS_ITS | Continuity of Care Document ---
Author Organization [facility] PATIENT ATTENDANT Oncolog y Address [address] [place] [address]- Care Team Providers Care Personnel Associate Name Role Phone Agustín Faria MD Primary Care Physician [place] [facility] [place] 12[place]10/21 [facility] PATIENT ATTENDANT Oncology [address] [place] [address] Attending Physician: Nicole Cottrell MD Admitting Physician: Nicole Cottrell MD Referring Physician: Agustín Faria MD Allergies, Adverse Reactions, Alerts Substance Reaction Severity Status propranolol Rash Active Zoloft tachycardia n/v Active Nardil Palpitations - rapid N&V - Nausea and vomiting C/O - a headache Active Inderal n/v,tachcardia Active Cefzil Hives Active Haldol Active Compazine severe anxiety Hives Active Reglan severe anxiety~panic Active Xarelto rash Active Lexapro n/v Active Immunizations Given and [...] tablet, 0 Refills, Maintenance, 12/26/20 12:55:00 EDT, [facility] #[id number], Partial fill upon patient request if the [...] Refills, Soft Stop, 10/27/21 14:15:00 EST, Powder, [facility] #[id number], Partial fill upon patient... Start Date: 10/27/21 [...] Model STENT STRETCH VL 6FR - BSCI ([id number]) 1 [employer] Unknown GO:No Information Assigning Authority: FDA
--- OUTSIDE RECORDS SUMMARY | 2024-01-27 11:29 | XMS_ITS | Continuity of Care Document ---
Author Organization [facility] [place] Address [address] [place] [address]- Care Team Providers Care High School Science Tutor Name Role Phone Maranda WILCOX, Silvio Martinez Primary Care Physician Encounter [facility] Date(s): 04/12/20 - 05/12/20 [facility] [place] [address] [place] [address]- [facility] Allergies, Adverse Reactions, Alerts Substance [...] mL, Refills 11, Tot. Refills 11, Maintenance, [facility]: [id number], 05/08/20 16:20:00 EDT, Supply, 169, cm, 04/15/20 [...] capsule, 1 Refills, Maintenance, 10/21/19 11:17:00 EST, [facility] #[id number], 1 capsule By Mouth 3 times a [...] 04/09/21 14:58:00 EDT, 04/09/20 14:57:00 EDT, Tablet, [facility] #[id number], 169, cm, 04/05/20 12:55:00 EDT, Height, 85, [...] Acute 04/30/21 16:58:00 EDT, 04/30/20 16:57:00 EDT, [facility] #[id number], 169, cm, 04/15/20 17:38:00 EDT, Height, 85, kg, 03/15/20 2:33:00 EDT, Dry Weight Start Date: 04/30/20 Stop Date: 04/30/21 Status: Ordered methylprednisolone 2 gm injectable powder for injection See Instructions, inject 4 grams IM for adrenal crisis, # 48 Gm, 11 Refills, Acute 06/08/21 12:08:00 EDT, 05/03/21 10:04:00 EDT, [facility]/pharmacy #[id number], 169, cm, 04/15/20 17:38:00 EDT, Height, 85, kg, 03/15/20 2:33:00 EDT, Dry Weight Start Date: 05/03/21 Stop Date: 06/08/21 Status: Ordered methylprednisolone 2 gm injectable powder for injection See Instructions, inject 4 grams IM for adrenal crisis, # 48 Gm, 3 Refills, Acute 05/03/21 10:04:00EDT, 05/03/20 10:03:00 EDT, [facility] #[id number], 169, cm, 04/15/20 17:38:00 EDT, Height, 85, kg, 03/15/20 2:33:00 EDT, Dry Weight Start Date: 05/03/20 Stop Date: 05/03/21 Status: Ordered methylprednisolone 2 gm injectable powder for injection See Instructions, inject 4 grams IM for adrenal crisis, # 48 Gm, 3 Refills, Acute 05/03/21 11:58:00EDT, 05/03/21 10:04:00 EDT, [facility], 169, cm, 04/15/20 17:38:00 [...] 11 Refills, Soft Stop, 05/03/20 16:07:00 EDT, [facility] #[id number], 169, cm, 04/15/20 17:38:00 EDT, Height, 85, [...] Refills, Maintenance, 12/05/19 20:49:00 EDT, DIS Tablet, [facility] #[id number], 170, cm, 12/05/19 19:19:00 EDT, Height, 88.7, [...]
--- OUTSIDE RECORDS SUMMARY | 2024-01-27 11:29 | XMS_ITS | Continuity of Care Document ---
Author Organization [facility] Primary [facility] [place] Address [address] [place] [address]- Care Team Providers Care Freelance Programmer/App Developer Name Role Phone Silvio Low MD Primary Care Physician Encounter [facility] Date(s): 10/08/20 - 12/06/20 [facility] [place] [address] [place] [address]- Attending Physician: Silvio Low MD Allergies, Adverse [...] capsule, 1 Refills, Maintenance, 10/21/19 11:17:00 EST, [facility] #[id number], 1 capsule By Mouth 3 times a [...] 04/09/21 14:58:00 EDT, 04/09/20 14:57:00 EDT, Tablet, [facility] #[id number], 169, cm, 04/05/20 12:55:00 EDT, Height, 85, [...] 3 Refills, Maintenance, 10/16/20 16:21:00 EST, Tablet, [facility] #[id number], Partial fill upon patient request if the prescription is for a schedul... Start Date: 10/16/20 Stop Date: 02/13/21 Status: Ordered ondansetron 4 mg oral tablet 1 tablet = 4 mg, By Mouth, Every 8 hours, PRN Nausea & Vomiting, # 20 tablet, 0 Refills, Maintenance, 06/18/20 16:48:00 EDT, Tablet, [facility] #[id number], 170, cm, 06/18/20 15:14:00 EDT, Height, 90.4, kg, 06/18/20 15:14:00 EDT, Dry Weight Start Date: 06/18/20 Stop Date: 06/25/20 Status: Ordered ondansetron 8 mg oral tablet, disintegrating 1 tablet = 8 mg, By Mouth, 3 times a day, # 10 tablet, 0 Refills, Maintenance, 10/30/20 17:44:00 EST, [facility] #[id number], Partial fill upon patient request if the [...] Refills, Soft Stop, 10/02/20 11:57:00 EST, Powder, [facility] #[id number], Partial fill upon patient... Start Date: 10/02/20 [...]
--- OUTSIDE RECORDS SUMMARY | 2024-01-27 11:29 | XMS_ITS | Continuity of Care Document ---
Author Organization [facility] Address [address] [place] [address]- Care Team Providers Care Foamite Mixer Name Role Phone Dash WILCOX ([place]), Paola Anderson Primary Care Physician Encounter [facility] [place] Date(s): 09/09/23 - 01/07/24 [facility] [address] [place] [address]- Attending Physician: Manda Cheng MD Admitting Physician: Manda Cheng MD Referring Physician: Agustín Faria MD Allergies, [...] 4 Refills, Maintenance, 08/10/23 14:21:00 EST, Tablet, [facility] #[id number], Partial fill upon patient request if the prescription is fora schedule II opioid drug., 170, cm, 08/05/23 3:21:... Start Date: 08/10/23 Stop Date: 01/07/24 Status: Ordered Metoprolol Tartrate 100 mg oral tablet 1 tablet, By Mouth, 2 times a day, # 60 tablet, 4 Refills, Maintenance, 10/11/23 9:06:00 EST, [facility] #[id number], 170, cm, 09/26/23 11:43:00 EST, Height, 93, [...] Refills, Maintenance, 10/13/23 13:52:00 EST, DIS Tablet, [facility] #[id number], Partial fill upon patient request if the prescription is for a schedule I... Start Date: 10/13/23 Status: Ordered prazosin 2 mg oral capsule 1 capsule = 2 mg, By Mouth, Daily at bedtime, if PO intake is low or BP low below 110/70 only take one cap, # 30 capsule, 4 Refills, Maintenance, 08/10/23 14:14:00 EST, [facility] #[id number], Partial fill upon patient request if the [...] Refills, Soft Stop, 05/27/23 14:16:00 EDT, Powder, [facility] #[id number], Partial fill upon patient... Start Date: 05/27/23 Status: Ordered spironolactone 25 mg oral tablet 1, tablet, By Mouth, Daily, # 30 tablet, Refills 0, Maintenance, 09/10/23 16:43:00 EST, Route to Pharmacy Electronically, [facility] #[id number], 170, cm, 08/27/23 7:32:00 EST, Height, 99, kg, 08/18/23 9:13:00 EST, Dry Weight Start Date: 09/10/23 Status: Ordered Wellbutrin SR 100 mg/12 hours oral tablet, extended release 1 tablet = 100 mg, By Mouth, Daily, # 30 tablet, 4 Refills, Maintenance, 08/10/23 14:26:00 EST, [facility] #[id number], Partial fill upon patient request if the [...] Dash WILCOX ([place]) , Paola Anderson Position: [facility] Outreach Member Role: PCP Address: Address: [address] [place] [phone] [place] Name: Daina Ibrahim RN Position: [facility]. [...] RN Position: [facility] LEAD CLINICAL RESEARCH COORDINATOR Member Role: Primary Care Nurse Name: Alina Castillo NP Position: [facility] Associate Professional Member Role: Primary Care Nurse Address: Address: [address] [place] [address]- [place] Name: Mary Anne Kilpatrick RN Position: [facility] MR W/ Merge Member Role: Primary Care Nurse Name: Kira Medellin RN Position: [facility] RN Member Role: Primary Care Nurse Name: Nicole Hernández RN Position: [facility] RN Member Role: Primary Care Nurse Name: Lindsay Srinivasan CNM Position: [facility] Portable Irrigation Operator Member Role: Primary Care Nurse Address: Address: [address] [place] [address]- Name: Bea Brown RN Position: [facility] RN Member Role: Primary Care Nurse Name: Kiana Sabillon RN Position: [facility] RN Member Role: Primary Care Nurse Name: Bobby Wilson RN Position: [facility] Outreach Member Role: Primary Care Nurse Name: Larissa Olson [place] Position: [facility] RN Member Role: Primary Care Nurse Name: Karen Roa RN Position: [facility] ED RN W/OE and Tasks Member Role: Primary Care Nurse Name: Mary Alice Stevens RN Position: [facility] RN Member Role: Primary Care Nurse Name: Beverly Grey Position: [facility] RN Member Role: Primary Care Nurse Name: Lani Gray RN Position: [facility] RN Member Role: Primary Care Nurse Name: Alexy Geronimo RN Position: [facility] ED RN W/OE and Tasks Member Role: Primary Care Nurse Name: Raúl Rudolph DO Position: [facility] INVENTORY AUDIT CLERK MD Member Role: [employer] INVENTORY AUDIT CLERK Physician Address: Address: [address] [place] [address]- Name: Evelyn Haynes RN Position: [facility] RN Member Role: Primary Care Nurse Name: Crissy Metzger RN Position: [facility] RN Member Role: Primary Care Nurse Name: Elisa Gilbert RN Position: [facility] RN Member Role: Primary Care Nurse Name: Corina Solorio RN Position: [facility] AMB Nurse Member Role: Primary Care Nurse Name: Domingo RNShawnee Position: [facility] ED RN W/OE and Tasks Member Role: Primary Care Nurse Name: Ana Estrada RN Position: [facility] RN Member Role: Primary Care Nurse Name: Erna Douglass RN Position: [facility] RADHA Office Staff Member Role: Primary Care Nurse Name: Keyana Ndiaye RN Position: [facility] Crewmember Member Role: Primary Care Nurse Name: Grace Verma RN Position: [facility] RN Member Role: Primary Care Nurse Name: Anabella Nicholson RN Position: [facility] AMB Nurse Member Role: Primary Care Nurse Name: Brenda Tomas RN Position: [facility] Outreach Member Role: Primary Care Nurse Name: Nancy Gallagher RN Position: [facility] Crewmember Member Role: Primary Care Nurse Name: Evelyn Allen RN Position: [facility] OB RN Member Role: Primary Care Nurse Name: Jackelin Watt RN Position: [facility] RN Member Role: Primary Care Nurse Name: Raymundo Elizabeth RN Position: [facility] SN RN Member Role: Primary Care Nurse Name: Raymundo Beard RN Position: [facility] RN Member Role: Primary Care Nurse Name: Opal Calderon RN Position: [facility] RN Member Role: Primary Care Nurse Name: Yadiel Warner RN Position: [facility] SN RN Member Role: Primary Care Nurse Care Team Related Persons Name: BONITA IBRAHIMSSE Address: [address] [place], [place] Name: GIANLUCA IBRAHIM Address: [address] [place], [place] Name: ABBIE IBRAHIM Address: [address] [place], [place] Name: SIM CERDA Name: DIANE CERDA Address: [address] [place] [address] Name: SOLO CORRIGAN Address: [address] [place], [place] Name: SOLO FLORES Address: [address] [place], [place] Name: RAYMUNDO MAYFIELD Address: [address] [place] [address]
--- OUTSIDE RECORDS SUMMARY | 2024-01-27 11:29 | XMS_ITS | Continuity of Care Document ---
Author Organization [facility] Address [address] [place] [address]- Care Team Providers Care Thrill Performer Name Role Phone Dash WILCOX (SC), Paola Anderson Primary Care Physician [facility]counter [facility] Date(s): 05/20/23 - 06/19/23 [facility] [address] [place] [address]- Allergies, Adverse Reactions, Alerts Substance Reaction Severity [...] Other : Medications (Vitamin D3) Cholecalciferol 400 SNF units/mL oral syringe 1 mL = 10 [...] tablet, 3 Refills, Maintenance, 08/17/22 15:43:00 EST, [facility] #[id number], 170, cm, 05/13/22 17:18:00 EDT, Height, 88.8, [...] 01/08/21 13:59:00 EDT, Route to Pharmacy Electronically, [facility] #[id number], Partial fill upon patient request if the prescription is for a sched... Start Date: 01/08/21 Status: Ordered Flonase 50 mcg/inh nasal spray 2 sprays, Nares, Both, 2 times a day, PRN Congestion, # 16 Gm, 0 Refills, Maintenance, 08/20/20 11:17:00 EST, [place], [facility] #[id number], Partial fill upon patient request if the prescriptionis for a schedule II opioid drug., 170, cm, ... Start Date: 08/20/20 Status: Ordered gabapentin 300 mg oral capsule See Instructions, 1 cap in the AM, 2 in the afternoon and 2 at bedtime, # 1 each, Refills 4, Tot. Refills 4, Maintenance, 11/11/22 15:13:00 EST, Instructions Replace Required Details, Route to Pharmacy Electronically, [facility] #[id number], Part... Start Date: 11/11/22 Status: Ordered Insulin [...] 05/14/23 20:59:00 EDT, Route to Pharmacy Electronically, [facility] #[id number], Partial fill upon patient request if the [...] 0 Refills, Maintenance, 05/13/23 10:33:00 EDT, Tablet, [facility] #[id number], Partial fill upon patient request if the prescription is for a schedule II opioid drug., 1... Start Date: 05/13/23 Stop Date: 05/16/23 Status: Ordered prazosin 2 mg oral capsule 2 capsule = 4 mg, By Mouth, Daily at bedtime, if PO intake is low or BP low below 110/70 only take one cap, # 60 capsule, 4 Refills, Maintenance, 11/11/22 15:17:00 EST, [facility] #[id number], Partial fill upon patient request if the [...] 03/10/23 15:36:00 EDT, Route to Pharmacy Electronically, [facility] #[id number], Partial fill upon patient request if the [...] Refills, Soft Stop, 05/27/23 14:16:00 EDT, Powder, [facility] #[id number], Partial fill upon patient... Start Date: 05/27/23 Status: Ordered spironolactone 25 mg oral tablet 25 mg, 1, tablet, By Mouth, Daily, # 30 tablet, Refills 3, Tot. Refills 3, Maintenance, 05/14/23 20:55:00 EDT, Route to Pharmacy Electronically, [facility] #[id number], Partial fill upon patientrequest if the prescription [...] Dash WILCOX (SC) , Paola Anderson Position: [facility] Outreach Member Role: PCP Address: Address: [address] [place] [id number] Name: Daina Ibrahim RN Position: [facility] ED RN W/OE and Tasks Member Role: Primary Care Nurse Name: Madeline Baird RN Position: [facility] ED RN W/OE and Tasks Member Role: Primary Care Nurse Name: Teresa Carpio Position: S RN Member Role: Primary Care Nurse Name: Inge Elizabeth RN Position: [facility] RN Member Role: Primary Care Nurse Name: Kelley Prasad RN Position: [facility] RN Member Role: Primary Care Nurse Name: Cindy Medeiros RN Position: [facility] RN Member Role: Primary Care Nurse Name: Linnette De La O RN Position: [facility] METAL DIE FINISHER Member Role: Primary Care Nurse Name: Alina Castillo NP Position: [facility] Associate Professional Member Role: Primary Care Nurse Address: Address: [address] [place] [address]- [place] Name: Mary Anne Kilpatrick RN Position: [facility] MR W/ Merge Member Role: Primary Care Nurse Name: Nicole Hernández RN Position: [facility] RN Member Role: Primary Care Nurse Name: Lindsay Srinivasan CNM Position: [facility] Wood Floor Refinisher Member Role: Primary Care Nurse Address: Address: [address] [place] [address]- [place] Name: Larissa Olson [place] Position: [facility] RN Member Role: Primary Care Nurse Name: Karen Roa RN Position: [facility] ED RN W/OE and Tasks Member Role: Primary Care Nurse Name: Mary Alice Stevens RN Position: [facility] RN Member Role: Primary Care Nurse Name: Beverly Grey Position: [facility] RN Member Role: Primary Care Nurse Name: Alexy Geronimo RN Position: [facility] RN Member Role: Primary Care Nurse Name: Raúl Rudolph DO Position: [facility] TINTER PHOTOGRAPH MD Member Role: Lifetime TINTER PHOTOGRAPH Physician Address: Address: [address] [place] [address] [place] [address]- [place] Name: Evelyn Haynes RN Position: [facility] RN Member Role: Primary Care Nurse Name: Crissy Metzger RN Position: [facility] RN Member Role: Primary Care Nurse Name: Elisa Gilbert RN Position: [facility] RN Member Role: Primary Care Nurse Name: Corina Solorio RN Position: [facility] AMB Nurse Member Role: Primary Care Nurse Name: Shawnee Lane RN Position: [facility] ED RN W/OE and Tasks Member Role: Primary Care Nurse Name: Erna Douglass RN Position: [facility] SN RN Member Role: Primary Care Nurse Name: Keyana Ndiaye RN Position: [facility] Production Analyst Member Role: Primary Care Nurse Name: Anabella Nicholson RN Position: [facility] AMB Nurse Member Role: Primary Care Nurse Name: Brenda Tomas RN Position: [facility] Outreach Member Role: Primary Care Nurse Name: Ramona Ybarra RN Position: [facility] RN Member Role: Primary Care Nurse Address: Address: [address] [place] [address] Name: Nancy Gallagher RN Position: [facility] Production Analyst Member Role: Primary Care Nurse Name: Evelyn Allen RN Position: [facility] OB RN Member Role: Primary Care Nurse Name: Jackelin Watt RN Position: [facility] RN Member Role: Primary Care Nurse Name: Raymundo Elizabeth RN Position: [facility] SN RN Member Role: Primary Care Nurse Name: Opal Calderon RN Position: [facility] RN Member Role: Primary Care Nurse Name: Yadiel Warner RN Position: [facility] SN RN Member Role: Primary Care Nurse Care Team Related Persons Name: BARTOLOME IBRAHIM Address: home [address] [place] [address] Name: GIANLUCA IBRAHIM Address: home [address] [place] [address] Name: ABBIE IBRAHIM Address: home [address] [place] [address] Name: SIM CERDA Name: DIANE CERDA Address: home [address] [place] [address] Name: SOLO CORRIGAN Address: [address] [place] [address] Name: SOLO FLORES Address: [address] [place] [address] Name: RAYMUNDO MAYFIELD Address: [address] [place] [address]
--- OUTSIDE RECORDS SUMMARY | 2024-01-27 11:29 | XMS_ITS | Continuity of Care Document ---
Author Organization [facility] Address [address] [place] [address]- Care Team Providers Care Crystal Mounter Name Role Phone Agustín Faria MD Primary Care Physician Encounter [facility] Date(s): 08/24/19 - 09/03/19 [facility] [address] [place] [address]- [facility] Attending Physician: Maximo Cano Admitting Physician: Admtr, Ar8 Referring Physician: Admtr, Ar8 Allergies, Adverse Reactions, [...] 02/21/19 8:58:39 EDT, Route to Pharmacy Electronically, [id number], [facility] 3 Start Date: 02/21/19 Stop Date: 04/22/19 [...] 08/24/19 9:15:39 EST, Route to Pharmacy Electronically, [id number], [facility] #[id number], 170, cm, 08/24/19 8:38:44 EST, H... Start [...] Status: Ordered Solu-CORTEF Act-O-Vial 100 mg injection IV Infusion, Every 6 hours, 0 Refills, Maintenance, 08/24/19 8:55:52 EST Start Date: 08/24/19 Status: Ordered spironolactone 25 mg oral tablet 12.5 mg, 0.5, tablet, By Mouth, Daily, # 15 tablet, Refills 6, Tot. Refills 6, Maintenance, 02/21/19 8:59:46 EDT, Route to Pharmacy Electronically, [id number], [facility] Start Date: 02/21/19 Stop [...]
--- OUTSIDE RECORDS SUMMARY | 2024-01-27 11:29 | XMS_ITS | Continuity of Care Document ---
Author Organization [facility] Address [address] [place] [address]- Care Team Providers Care Workday Senior Associate Name Role Phone Maranda WILCOX, Silvio Martinez Primary Care Physician Encounter [facility] Date(s): 11/18/20 - 12/28/[address] [address]- Attending Physician: Karen David NP Admitting Physician: Karen David NP Referring Physician: Karen David NP Allergies, Adverse Reactions, Alerts Substance Reaction [...] capsule, 1 Refills, Maintenance, 10/21/19 11:17:00 EST, [facility] #[id number], 1 capsule By Mouth 3 times a day,Instr:with each meal and snack, 170, cm, 10/20/19 13:48:00 EST, H... Start Date: 10/21/19 Status: Ordered diphenhydrAMINE 25 mg oral tablet = 50 mg, By Mouth, 4 times a day, PRN as needed for itching, for 3 days, # 10 tablet, 0 Refills, Acute 12/29/20 12:55:00 EDT, 12/26/20 12:55:00 EDT, Tablet, [facility] #22781, Partial fill upon patient request if the [...] 04/09/21 14:58:00 EDT, 04/09/20 14:57:00 EDT, Tablet, [facility] #39066, 169, cm, 04/05/20 12:55:00 EDT, Height, 85, [...] 3 Refills, Maintenance, 10/16/20 16:21:00 EST, Tablet, [facility] #32292, Partial fill upon patient request if the prescription is for a schedul... Start Date: 10/16/20 Stop Date: 02/13/21 Status: Ordered ondansetron 8 mg oral tablet, disintegrating 1 tablet = 8 mg, By Mouth, 3 times a day, PRN Nausea & Vomiting, # 30 tablet, 0 Refills, Maintenance, 12/26/20 12:55:00 EDT, [facility] #38707, Partial fill upon patient request if the [...] Refills, Maintenance, 12/26/20 12:54:00 EDT, ER Tablet, [facility] #04133, 170, cm, 12/26/20 9:55:00 EDT, Height, 84.65, [...] Refills, Soft Stop, 10/02/20 11:57:00 EST, Powder, [facility] #[id number], Partial fill upon patient... Start Date: 10/02/20 [...]
--- OUTSIDE RECORDS SUMMARY | 2024-01-27 11:29 | XMS_ITS | Continuity of Care Document ---
Author Organization [facility] Address [address] [place] [address]- Care Team Providers Care Proced Tech Name Role Phone Maranda WILCOX, Silvio Martinez Primary Care Physician Encounter [facility] Date(s): 10/31/20 - 11/30/20 [facility] [address] [place] [address]- Allergies, Adverse Reactions, Alerts Substance Reaction Severity [...] capsule, 1 Refills, Maintenance, 10/21/19 11:17:00 EST, [facility] #86134, 1 capsule By Mouth 3 times a [...] 04/09/21 14:58:00 EDT, 04/09/20 14:57:00 EDT, Tablet, [facility] #27301, 169, cm, 04/05/20 12:55:00 EDT, Height, 85, [...] 3 Refills, Maintenance, 10/16/20 16:21:00 EST, Tablet, [facility] #60225, Partial fill upon patient request if the prescription is for a schedul... Start Date: 10/16/20 Stop Date: 02/13/21 Status: Ordered ondansetron 4 mg oral tablet 1 tablet = 4 mg, By Mouth, Every 8 hours, PRN Nausea & Vomiting, # 20 tablet, 0 Refills, Maintenance, 06/18/20 16:48:00 EDT, Tablet, [facility] #10469, 170, cm, 06/18/20 15:14:00 EDT, Height, 90.4, kg, 06/18/20 15:14:00 EDT, Dry Weight Start Date: 06/18/20 Stop Date: 06/25/20 Status: Ordered ondansetron 8 mg oral tablet, disintegrating 1 tablet = 8 mg, By Mouth, 3 times a day, # 10 tablet, 0 Refills, Maintenance, 10/30/20 17:44:00 EST, [facility] #72672, Partial fill upon patient request if the [...] Refills, Soft Stop, 10/02/20 11:57:00 EST, Powder, [facility] #[id number], Partial fill upon patient... Start Date: 10/02/20 [...]
--- OUTSIDE RECORDS SUMMARY | 2024-01-27 11:30 | XMS_ITS | Continuity of Care Document ---
Author Organization [facility] Address [address] [place] [address]- Care Team Providers Care Film Examiner Name Role Phone Amelia Wolff NP Primary Care Physician [phone] [id number] Date(s): 01/16/20 - 01/23/20 [facility] [place] [address] [place] [address]- [facility] Encounter Diagnosis Nausea and vomiting(Discharge Diagnosis) - 01/16/20 Attending Physician: Amelia Wolff NP Allergies, Adverse Reactions, [...] Stop 02/18/20 11:16:00EDT, 10/21/19 11:16:00 EST, Tablet, [facility] #69360, 170, cm, 10/20/19 13:48:00 EST, Height, 92.3, kg, 10/15/19 6:38:00 EST, Dry Weight Start Date: 10/21/19 Stop Date: 02/18/20 Status: Ordered atorvastatin 20 mg oral tablet 1 tablet = 20 mg, By Mouth, Daily, # 90 tablet, 1 Refills, Maintenance, 10/21/19 11:16:00 EST, Tablet, [facility] #[id number], 170, cm, 10/20/19 13:48:00 EST, Height, 92.3, [...] 02/21/19 8:58:39 EDT, Route to Pharmacy Electronically, [id number], [facility] Start Date: 02/21/19 Stop Date: 04/22/19 Status: Ordered Creon 36,000 units oral delayed release capsule 1 capsule, By Mouth, 3 times a day, with each meal and snack, # 270 capsule, 1 Refills, Maintenance, 10/21/19 11:17:00 EST, [facility] #[id number], 1 capsule By Mouth 3 times a [...] 02/21/19 8:59:46 EDT, Route to Pharmacy Electronically, [id number], [facility] Start Date: 02/21/19 Stop Date: 09/19/19 [...] Refills, Maintenance, 12/05/19 20:49:00 EDT, DIS Tablet, [facility] #68242, 170, cm, 12/05/19 19:19:00 EDT, Height, 88.7, [...] Vitamin B6 deficiency(Confirmed) Active 1MRI compatible 2IAROGENIC Diagnosis Diagnosis Type Effective Dates Health Status Cl inical Service Informant Nausea and vomiting Discharge Diagnosis 01/16/20 Procedures Procedure Date Related Diagnosis Body Site Status Colonoscopy 1 01/04/20 Completed Endoscopy 2 01/04/20 Completed 1completed at [facility]- normal 2completed at [facility]- normal Vital Signs Most recent to oldest [Reference Range]: 1 Height 170 cm (01/16/20 10:49 AM) Social History Social History Type Response Smoking Status 10 or more cigarette s (1/2 pack or more)/day in last 30 days entered on: 08/06/19 Sex
--- OUTSIDE RECORDS SUMMARY | 2024-01-27 11:30 | XMS_ITS | Continuity of Care Document ---
Author Organization [facility] ter Address [address] [place] [address]- Care Team Providers Care Financial Planning Assistant Name Role Phone Maranda WILCOX, Silvio Martinez Primary Care Physician Encounter [facility] Date(s): 01/03/21 - 02/02/[address] [address] Allergies, Adverse Reactions, Alerts [...] tablet, 0 Refills, Maintenance, 12/26/20 12:55:00 EDT, [facility] #[id number], Partial fill upon patient request if the prescription is for a schedule II opioid drug., 170, cm,... Start Date: 12/26/20 Status: Ordered Potassium Chloride = 40 mEq, By Mouth, 2 times a day, 0 Refills, Maintenance, 01/20/21 5:39:00 EDT, Partial fill upon patient request if the prescription is for a schedule II opioid drug. Start Date: 01/20/21 Status: Ordered Potassium Chloride (Rsb-Xnyj-Wjt M20) 20 mEq oral tablet, extended release 1 tablet = 20 mEq, By Mouth, 2 times a day, # 10 tablet, 0 Refills, Maintenance, 01/20/21 7:48:00 EDT, [facility] #[id number], Partial fill upon patient request if the [...] Refills, Soft Stop, 10/02/20 11:57:00 EST, Powder, [facility] #[id number], Partial fill upon patient... Start Date: 10/02/20 [...] 0 Refills, Maintenance, 01/20/21 7:49:00 EDT, Tablet, [facility] #16002, Partial fill upon patient request if the [...]
--- OUTSIDE RECORDS SUMMARY | 2024-01-27 11:30 | XMS_ITS | Continuity of Care Document ---
Author Organization [facility] Address [address] [place] [address]- Care Team Providers Care Emt I/99 Name Role Phone Beinvenido WILCOX, Agustín Joaquin Primary Care Physician Encounter [facility] Date(s): 10/15/19 - 10/21/[address] [address]- [facility] Discharge Disposition: A-D/C Home Attending Physician: Rani Waddell MD Admitting Physician: Bi WILCOX, Dunia Referring Physician: Not on Staff, Referring MD [...] Stop 02/18/20 11:16:00EDT, 10/21/19 11:16:00 EST, Tablet, [facility] #[id number], 170, cm, 10/20/19 13:48:00 EST, Height, 92.3, kg, 10/15/19 6:38:00 EST, Dry Weight Start Date: 10/21/19 Stop Date: 02/18/20 Status: Ordered atorvastatin 20 mg oral tablet 1 tablet = 20 mg, By Mouth, Daily, # 90 tablet, 1 Refills, Maintenance, 10/21/19 11:16:00 EST, Tablet, [facility] #16053, 170, cm, 10/20/19 13:48:00 EST, Height, 92.3, [...] 02/21/19 8:58:39 EDT, Route to Pharmacy Electronically, [id number], [facility] Start Date: 02/21/19 Stop Date: 04/22/19 Status: Ordered Creon 36,000 units oral delayed release capsule 1 capsule, By Mouth, 3 times a day, with each meal and snack, # 270 capsule, 1 Refills, Maintenance, 10/21/19 11:17:00 EST, [email or web address] #[id number], 1 capsule By Mouth 3 times a [...] 08/24/19 9:15:39 EST, Route to Pharmacy Electronically, [id number], [facility] #[id number], 170, cm, 08/24/19 8:38:44 EST, H... Start [...] 0 Refills, Maintenance, 09/28/19 0:43:00 EST, Tablet, [facility] #18787, 171, cm, 09/27/19 22:45:00 EST, Height, 92.2, [...] 0 Refills, Soft Stop, 09/28/19 0:51:00 EST, [facility][id number], 171, cm, 09/27/19 22:45:00 EST, Height, 92.2, [...] 02/21/19 8:59:46 EDT, Route to Pharmacy Electronically, [id number], [facility] Start Date: 02/21/19 Stop [...] Range]: 1 2 3 Height 170 cm (10/20/19 1:48 PM) 170 cm (10/20/19 10:54 AM) 170 cm (10/20/19 10:02 AM) Weight 92.3 kg (10/15/19 6:09 AM) 92.3 kg (10/15/19 5:21 AM) 90 kg (10/15/19 12:36 AM) Oxygen Saturation [94-100 %] 98 % (10/21/19 5:00 AM) 98 % (10/20/19 8:00 PM) 93 % *L* (10/20/19 1:48 PM) Pulse Rate [55-90 bpm] 60 bpm (10/21/19 9:13 AM) 60 bpm (10/21/19 5:00 AM) 60 bpm (10/20/19 9:20 PM) Body Mass Index [18.5-24.99] 31.94 *>HHI* (10/15/19 6:09 AM) 31.94 *>HHI* (10/15/19 5:21 AM) 31.14 *>HHI* (10/15/19 12:36 AM) Blood Pressure [90-138/55-84 mm Hg] 141/87mm Hg *H* (10/21/19 9:13 AM) 141/87mm Hg *H* (10/21/19 5:00 AM) 118/70mm Hg (10/20/19 9:20 PM) Respiratory Rate [16-30 br/min] 19 br/min (10/21/19 10:13 AM) 16 br/min (10/21/19 5:00 AM) 18 br/min (10/21/19 4:58 AM) Temperature [96.8-100.4 DegF] 97.7 DegF (10/21/19 5:00 AM) 97.4 DegF (10/20/19 8:00 PM) 98.0 DegF (10/20/19 1:48 PM) Liters per Minute 0 L/min (10/21/19 5:00 AM) 0 L/min (10/20/19 8:00 PM) 0 L/min (10/18/19 9:00 PM) Mode of Delivery (Oxygen) Room air (10/21/19 5:00 AM) Room air (10/20/19 8:00 PM) Room air (10/20/19 1:48 PM) Blood pressure sites Arm, right (10/20/19 1:48 PM) Arm, right (10/20/19 10:54 AM) Arm, left (10/20/19 10:02 AM) Temperature Route Temporal (10/21/19 5:00 AM) Temporal (10/20/19 8:00 PM) Temporal (10/20/19 1:48 PM) Dry Weight 92.3 kg (10/15/19 5:21 AM) 90 kg (10/15/19 12:36 AM) 90 kg (10/14/19 7:30 PM) Weight Obtained Via Standing scale (10/15/19 6:09 AM) Standing scale (10/15/19 5:21 AM) Patient/family stated (10/14/19 7:30 PM) Dry Weight Obtained Via Standing scale (10/15/19 5:21 AM) Patient/family stated (10/14/19 7:30 PM) Sensory deficits None (10/15/19 5:21 AM) Mobility assistance Independent (10/15/19 5:21 AM) Social History Social History Type Response Smoking Status 10 or more cigarette s (1/2 pack or more)/day in last 30 days entered on: 08/06/19 Sex
--- OUTSIDE RECORDS SUMMARY | 2024-01-27 11:30 | XMS_ITS | Continuity of Care Document ---
Author Organization [facility] Address [address] [place] [address]- Care Team Providers Care Manager Of Purchasing Name Role Phone Silvio Low MD Primary Care Physician Encounter [facility] Date(s): 06/20/20 - 07/20/20 [facility] [place] [address] [place] [address]- [facility] Attending Physician: Maximo Cano Admitting Physician: AdmtrMaximo [...] mL, Refills 11, Tot. Refills 11, Maintenance, [facility]: [id number], 05/08/20 16:20:00 EDT, Supply, 169, cm, 04/15/20 [...] capsule, 1 Refills, Maintenance, 10/21/19 11:17:00 EST, [facility] #[id number], 1 capsule By Mouth 3 times a [...] 04/09/21 14:58:00 EDT, 04/09/20 14:57:00 EDT, Tablet, [facility] #[id number], 169, cm, 04/05/20 12:55:00 EDT, Height, 85, [...] tablet, 3 Refills, Maintenance, 05/28/20 11:56:00 EDT, [facility] #[id number], 170, cm, 05/27/20 0:11:00 EDT, Height,90.4, kg, [...] Acute 04/30/21 16:58:00 EDT, 04/30/20 16:57:00 EDT, [facility] #[id number], 169, cm, 04/15/20 17:38:00 EDT, Height, 85, kg, 03/15/20 2:33:00 EDT, Dry Weight Start Date: 04/30/20 Stop Date: 04/30/21 Status: Ordered methylprednisolone 2 gm injectable powder for injection See Instructions, inject 4 grams IM for adrenal crisis, # 48 Gm, 11 Refills, Acute 06/08/21 12:08:00 EDT, 05/03/21 10:04:00 EDT, [facility] #[id number], 169, cm, 04/15/20 17:38:00 EDT, Height, 85, kg, 03/15/20 2:33:00 EDT, Dry Weight Start Date: 05/03/21 Stop Date: 06/08/21 Status: Ordered methylprednisolone 2 gm injectable powder for injection See Instructions, inject 4 grams IM for adrenal crisis, # 48 Gm, 3 Refills, Acute 05/03/21 10:04:00EDT, 05/03/20 10:03:00 EDT, [facility] #[id number], 169, cm, 04/15/20 17:38:00 EDT, Height, 85, kg, 03/15/20 2:33:00 EDT, Dry Weight Start Date: 05/03/20 Stop Date: 05/03/21 Status: Ordered methylprednisolone 2 gm injectable powder for injection See Instructions, inject 4 grams IM for adrenal crisis, # 48 Gm, 3 Refills, Acute 05/03/21 11:58:00EDT, 05/03/21 10:04:00 EDT, [facility], 169, cm, 04/15/20 17:38:00 [...] 0 Refills, Maintenance, 06/18/20 16:48:00 EDT, Tablet, [facility] #[id number], 170, cm, 06/18/20 15:14:00 EDT, Height, 90.4, [...] 11 Refills, Soft Stop, 07/10/20 6:01:00 EDT, [facility] #[id number], 170, cm, 07/10/20 2:42:00 EDT, Height, 90.5, kg, 07/09/20 23:20:00 EDT, Dry Weight Start Date: 07/10/20 Status: Ordered Solu-CORTEF 100 mg preservative-free injection = 100 mg, Intramuscular, Once, prn adrenal crisis, # 5 each, 11 Refills, Soft Stop, 05/03/20 16:07:00 EDT, [facility] #[id number], 169, cm, 04/15/20 17:38:00 EDT, Height, 85, [...] Refills, Maintenance, 12/05/19 20:49:00 EDT, DIS Tablet, [facility] #[id number], 170, cm, 12/05/19 19:19:00 EDT, Height, 88.7, [...]
--- OUTSIDE RECORDS SUMMARY | 2024-01-27 11:30 | XMS_ITS | Continuity of Care Document ---
Author Organization [facility] Address [address] [place] [address]- Care Team Providers Care Risk Consulting Treasury Director Name Role Phone Agustín Faria MD Primary Care Physician [phone] Encounter [facility] Date(s): 01/07/22 - 02/06/22 [facility] [address] [place] [address]- Allergies, Adverse Reactions, Alerts Substance Reaction Severity [...] tablet, 0 Refills, Maintenance, 12/26/20 12:55:00 EDT, [facility] #[id number], Partial fill upon patient request if the [...] Refills, Soft Stop, 10/27/21 14:15:00 EST, Powder, [facility] #[id number], Partial fill upon patient... Start Date: 10/27/21 Status: Ordered Wheelchair See Instructions, # 1 [...] Model STENT STRETCH VL 6FR - BSCI (116-587) 1 [employer] Amanda Unknown GO:No Information Assigning Authority: FDA
--- OUTSIDE RECORDS SUMMARY | 2024-01-27 11:30 | XMS_ITS | Continuity of Care Document ---
Author Organization [facility] al Address [address] [place] [address]- Care Team Providers Care Scrap Breaker Name Role Phone Mariella OCAMPO, Amelia Primary Care Physician [id number] Date(s): 03/07/20 - 03/08/[address] [address]- [facility] Discharge Disposition: Transferred to short-term general hospit Attending Physician: Jazmyn Erazo MD Admitting Physician: Jazmyn Erazo MD Referring Physician: Dash Jose MD Allergies, Adverse Reactions, Alerts Substance Reaction [...] EDT, Powder Start Date: 03/08/20 Status: Ordered Ambien 5 mg oral tablet 1 tablet = 5 mg, By Mouth, Daily at bedtime, PRN as needed for insomnia, may take up to 10mg, Maintenance, 03/07/20 19:57:00 EDT, Tablet Start Date: 03/07/20 Status: Ordered atorvastatin 20 mg oral tablet 2 tablet = 40 mg, By Mouth, Daily, 0 Refills, Maintenance, 03/08/20 16:52:00 EDT, Tablet Start Date: 03/08/20 Status: Ordered Benadryl Capsule 50 mg, By Mouth, 3 times a day, PRN, Refills 0, Maintenance, as needed for itching, 12/26/16 19:57:31 Start Date: 12/26/16 Status: Ordered buprenorphine 10 mcg/hr transdermal film, extended release 1 patch, Topically, Every 7 days, Maintenance, 03/08/20 16:47:00 EDT Start Date: 03/08/20 Status: Ordered Carafate 1 gm/10 ml oral suspension 10 mL = 1 Gm, By Mouth, 3 times a day before meals, Maintenance, 03/08/20 16:53:00 EDT Start Date: 03/08/20 Status: Ordered Creon 36,000 units oral delayed release capsule 1 capsule, By Mouth, 3 times a day, with each meal and snack, # 270 capsule, 1 Refills, Maintenance, 10/21/19 11:17:00 EST, [facility] #[id number], 1 capsule By Mouth 3 times a [...] Refills, Maintenance, 12/05/19 20:49:00 EDT, DIS Tablet, [facility] #[id number], 170, cm, 12/05/19 19:19:00 EDT, Height, 88.7, [...] Exam Date Time Procedure Performing Provider Status 03/07/20 1:21 PM Chest 2 Views Frontal and Lat Edison Powell; Laquita (Verified) Notes: (Chest 2 Views Frontal and Lat) Reason For Exam: Pleuritic Pain RESULT: Chest 2 Views Frontal and Lat Chest 2 Views Frontal and Lat Reason: Pleuritic Pain; Clinical Question(s): Pneumothorax; Hx of Present Illness: pt c o puffy eyes, anxiety attack while driving. EMT called and brought pt to ED. pt received asa, benadryl and steroids w emt. speak in full sentences. clear voice. still c o itchy throat and puffy eyes. COMPARISON: September 28 FINDINGS: Lungs clear. CP angles sharp. Cardiac silhouette, vascularity, hilar and mediastinal regions unremarkable. IMPRESSION: Negative chest. WSN: [id number] Ordering Physician: Anna Marie Chacko Dictated By: Sourav Rebollar MD Dictated Date/Time: 03/07/20 1:25 pm Reviewed By: Sourav Rebollar MD Signed By: Sourav Rebollar MD Signed Date/Time: 03/07/20 1:25 pm Transcribed By: DIANE Transcribed Date/Time: 03/07/20 1:24 pm Vital Signs Most recent to oldest [Reference Range]: 1 2 3 Height 170 cm (03/08/20 8:24 AM) 170 cm (03/08/20 8:17 AM) 170 cm (03/08/20 5:02 AM) Weight 85.2 kg (03/08/20 4:19 PM) 85.6 kg (03/07/20 6:46 PM) 86.5 kg (03/07/20 6:20 PM) Oxygen Saturation [94-100 %] 96 % (03/08/20 2:00 PM) 91 % *L* (03/08/20 8:24 AM) 95 % (03/08/20 8:17 AM) Pulse Rate [55-90 bpm] 60 bpm (03/08/20 2:00 PM) 76 bpm (03/08/20 8:24 AM) 62 bpm (03/08/20 8:17 AM) Body Mass Index [18.5-24.99] 29.62 *H* (03/07/20 6:46 PM) 29.93 *H* (03/07/20 6:20 PM) 29.93 *H* (03/07/20 4:34 PM) Blood Pressure [90-138/55-84 mm Hg] 99/49mm Hg (03/08/20 2:00 PM) 130/82mm Hg (03/08/20 8:24 AM) 95/51mm Hg (03/08/20 8:17 AM) Respiratory Rate [16-30 br/min] 7 br/min *L* (03/08/20 5:56 PM) 18 br/min (03/08/20 5:56 PM) 18 br/min (03/08/20 4:56 PM) Temperature [96.8-100.4 DegF] 97.0 DegF (03/08/20 2:00 PM) 98.6 DegF (03/08/20 8:24 AM) 98.6 DegF (03/08/20 8:17 AM) Liters per Minute 6 L/min (03/08/20 8:24 AM) Mode of Delivery (Oxygen) Room air (03/08/20 2:00 PM) Nasal cannula (03/08/20 8:24 AM) Room air (03/08/20 8:17 AM) Blood pressure sites Arm, left (03/08/20 2:00 PM) Arm, right (03/08/20 8:24 AM) Arm, left (03/08/20 8:17 AM) Temperature Route Temporal (03/08/20 2:00 PM) Oral (03/08/20 8:24 AM) Oral (03/08/20 8:17 AM) Dry Weight 85.6 kg (03/07/20 6:46 PM) 86.5 kg (03/07/20 6:20 PM) 86.5 kg (03/07/20 4:34 PM) Weight Obtained Via Standing scale (03/08/20 4:19 PM) Standing scale (03/07/20 6:46 PM) Dry Weight Obtained Via Patient/family s tated (03/07/20 11:54 AM) Social History Social History Type Response Smoking Status 10 or more cigarette s (1/2 pack or more)/day in last 30 days entered on: 08/06/19 Sex
--- OUTSIDE RECORDS SUMMARY | 2024-01-27 11:30 | XMS_ITS | Continuity of Care Document ---
Author Organization [facility] Address [address] [place] [address]- Care Team Providers Care Loft Worker Name Role Phone Maranda WILCOX, Silvio Martinez Primary Care Physician Encounter [facility] Date(s): 09/19/20 - 10/19/20 [facility] [address] [place] [address]- Allergies, Adverse Reactions, Alerts Substance Reaction Severity [...] capsule, 1 Refills, Maintenance, 10/21/19 11:17:00 EST, [facility] #[id number], 1 capsule By Mouth 3 times a [...] 04/09/21 14:58:00 EDT, 04/09/20 14:57:00 EDT, Tablet, [facility] #[id number], 169, cm, 04/05/20 12:55:00 EDT, Height, 85, [...] 0 Refills, Maintenance, 10/08/20 10:19:00 EST, Tablet, [facility] #[id number], 170, cm, 10/04/20 19:07:00 EST, Height, 91, kg, 0... Start Date: 10/08/20 Stop Date: 11/07/20 Status: Ordered KlonoPIN 1 mg oral tablet 2.5 tablet = 2.5 mg, By Mouth, Daily at bedtime, 0.5 mg TID 1 mg at hs, # 75 tablet, 3 Refills, Maintenance, 05/28/20 11:56:00 EDT, [facility] #[id number], 170, cm, 05/27/20 0:11:00 EDT, Height,90.4, kg, [...] 3 Refills, Maintenance, 10/16/20 16:21:00 EST, Tablet, [facility] #[id number], Partial fill upon patient request if the [...] 0 Refills, Maintenance, 06/18/20 16:48:00 EDT, Tablet, [facility] #[id number], 170, cm, 06/18/20 15:14:00 EDT, Height, 90.4, [...] Refills, Soft Stop, 10/02/20 11:57:00 EST, Powder, [facility] #[id number], Partial fill upon patient... Start Date: 10/02/20 [...]
--- OUTSIDE RECORDS SUMMARY | 2024-01-27 11:30 | XMS_ITS | Continuity of Care Document ---
Author Organization [facility] Address [address] [place] [address]- Care Team Providers Care Lamps Tester And Inspector Name Role Phone Maranda WILCOX, Silvio Martinez Primary Care Physician Encounter [facility] Date(s): 11/08/20 - 12/08/20 [facility] [address] [place] [address]- Allergies, Adverse Reactions, Alerts Substance Reaction Severity [...] capsule, 1 Refills, Maintenance, 10/21/19 11:17:00 EST, [facility] #[id number], 1 capsule By Mouth 3 times a [...] 04/09/21 14:58:00 EDT, 04/09/20 14:57:00 EDT, Tablet, [facility] #[id number], 169, cm, 04/05/20 12:55:00 EDT, Height, 85, [...] 3 Refills, Maintenance, 10/16/20 16:21:00 EST, Tablet, [facility] #48624, Partial fill upon patient request if the prescription is for a schedul... Start Date: 10/16/20 Stop Date: 02/13/21 Status: Ordered ondansetron 4 mg oral tablet 1 tablet = 4 mg, By Mouth, Every 8 hours, PRN Nausea & Vomiting, # 20 tablet, 0 Refills, Maintenance, 06/18/20 16:48:00 EDT, Tablet, [facility] #[id number], 170, cm, 06/18/20 15:14:00 EDT, Height, 90.4, kg, 06/18/20 15:14:00 EDT, Dry Weight Start Date: 06/18/20 Stop Date: 06/25/20 Status: Ordered ondansetron 8 mg oral tablet, disintegrating 1 tablet = 8 mg, By Mouth, 3 times a day, # 10 tablet, 0 Refills, Maintenance, 10/30/20 17:44:00 EST, [facility] #[id number], Partial fill upon patient request if the [...] Refills, Soft Stop, 10/02/20 11:57:00 EST, Powder, [facility] #04265, Partial fill upon patient... Start Date: 10/02/20 [...]
--- OUTSIDE RECORDS SUMMARY | 2024-01-27 11:30 | XMS_ITS | Continuity of Care Document ---
Author Organization [facility] Address [address] [place] [address]- Care Team Providers Care Manager Review Name Role Phone Maranda WILCOX, Silvio Martinez Primary Care Physician Encounter [facility] Date(s): 05/15/20 - 06/14/20 [facility] [address] [place] [address]- [facility] Allergies, Adverse Reactions, Alerts Substance [...] [facility]: [id number], 05/08/20 16:20:00 EDT, Supply, 169, cm, 04/15/20 [...] capsule, 1 Refills, Maintenance, 10/21/19 11:17:00 EST, [facility] #[id number], 1 capsule By Mouth 3 times a [...] 04/09/21 14:58:00 EDT, 04/09/20 14:57:00 EDT, Tablet, [facility] #52002, 169, cm, 04/05/20 12:55:00 EDT, Height, 85, [...] tablet, 3 Refills, Maintenance, 05/28/20 11:56:00 EDT, [facility] #56049, 170, cm, 05/27/20 0:11:00 EDT, Height,90.4, kg, [...] Acute 04/30/21 16:58:00 EDT, 04/30/20 16:57:00 EDT, [facility] #[id number], 169, cm, 04/15/20 17:38:00 EDT, Height, 85, [...] Refills, Acute 05/03/21 10:04:00EDT, 05/03/20 10:03:00 EDT, [facility] #[id number], 169, cm, 04/15/20 17:38:00 EDT, Height, 85, kg, 03/15/20 2:33:00 EDT, Dry Weight Start Date: 05/03/20 Stop Date: 05/03/21 Status: Ordered methylprednisolone 2 gm injectable powder for injection See Instructions, inject 4 grams IM for adrenal crisis, # 48 Gm, 3 Refills, Acute 05/03/21 11:58:00EDT, 05/03/21 10:04:00 EDT, [facility], 169, cm, 04/15/20 17:38:00 EDT, [...] 11 Refills, Soft Stop, 05/03/20 16:07:00 EDT, [facility] #[id number], 169, cm, 04/15/20 17:38:00 EDT, Height, 85, [...] Refills, Maintenance, 12/05/19 20:49:00 EDT, DIS Tablet, [facility] #04937, 170, cm, 12/05/19 19:19:00 EDT, Height, 88.7, [...]
--- OUTSIDE RECORDS SUMMARY | 2024-01-27 11:30 | XMS_ITS | Continuity of Care Document ---
Author Organization [facility] Address [address] [place] [address]- Care Team Providers Care Babbitter Name Role Phone Dash WILCOX ([place]), Paola Anderson Primary Care Physician Encounter [facility] Date(s): 05/27/23 - 06/26/23 [facility] [address] [place] [address]- Allergies, Adverse Reactions, Alerts Substance Reaction Severity Status propranolol Rash Active droperidol-fentanyl 1 Active Zoloft tachycardia n/v Active Xarelto rash Active Nardil Palpitations - rapid N&V - [...] Other : Medications (Vitamin D3) Cholecalciferol 400 CARE HOME units/mL oral syringe 1 mL = [...] tablet, 3 Refills, Maintenance, 08/17/22 15:43:00 EST, [facility] #[id number], 170, cm, 05/13/22 17:18:00 EDT, Height, 88.8, [...] 01/08/21 13:59:00 EDT, Route to Pharmacy Electronically, [facility] #[id number], Partial fill upon patient request if the prescription is for a sched... Start Date: 01/08/21 Status: Ordered Flonase 50 mcg/inh nasal spray 2 sprays, Nares, Both, 2 times a day, PRN Congestion, # 16 Gm, 0 Refills, Maintenance, 08/20/20 11:17:00 EST, [place], [facility] #05123, Partial fill upon patient request if the prescriptionis for a schedule II opioid drug., 170, cm, ... Start Date: 08/20/20 Status: Ordered gabapentin 300 mg oral capsule See Instructions, 1 cap in the AM, 2 in the afternoon and 2 at bedtime, # 1 each, Refills 4, Tot. Refills 4, Maintenance, 11/11/22 15:13:00 EST, Instructions Replace Required Details, Route to Pharmacy Electronically, [facility] #[id number], Part... Start Date: 11/11/22 Status: Ordered Insulin [...] 05/14/23 20:59:00 EDT, Route to Pharmacy Electronically, [facility] #[id number], Partial fill upon patient request if the [...] 0 Refills, Maintenance, 05/13/23 10:33:00 EDT, Tablet, [facility] #93032, Partial fill upon patient request if the prescription is for a schedule II opioid drug., 1... Start Date: 05/13/23 Stop Date: 05/16/23 Status: Ordered prazosin 2 mg oral capsule 2 capsule = 4 mg, By Mouth, Daily at bedtime, if PO intake is low or BP low below 110/70 only take one cap, # 60 capsule, 4 Refills, Maintenance, 11/11/22 15:17:00 EST, [facility] #[id number], Partial fill upon patient request if the [...] 03/10/23 15:36:00 EDT, Route to Pharmacy Electronically, [facility] #[id number], Partial fill upon patient request if the [...] Refills, Soft Stop, 05/27/23 14:16:00 EDT, Powder, [facility] #[id number], Partial fill upon patient... Start Date: 05/27/23 Status: Ordered spironolactone 25 mg oral tablet 25 mg, 1, tablet, By Mouth, Daily, # 30 tablet, Refills 3, Tot. Refills 3, Maintenance, 05/14/23 20:55:00 EDT, Route to Pharmacy Electronically, [facility] #[id number], Partial fill upon patientrequest if the prescription [...] information Care Team Personnel Name: Dash WILCOX ([place]) , Paola Anderson Position: [facility] Outreach Member Role: PCP Address: Address: [address] [place] [id number] [place] Name: Daina Ibrahim RN [facility] RN Position: [facility] PHYSICIAN ANESTHESIOLOGIST Member Role: Primary Care Nurse Name: Alina Castillo NP Position: [facility] Associate Professional Member Role: Primary Care Nurse Address: Address: [address] [facility] [place] [address]- [place] Name: Mary Anne Kilpatrick RN Position: [facility] MR W/ Merge Member Role: Primary Care Nurse Name: Nicole Hernández RN Position: [facility] RN Member Role: Primary Care Nurse Name: Lindsay Srinivasan CNM Position: [facility] Geriatric Physician Member Role: Primary Care Nurse Address: Address: [address] [place] [address]- [place] Name: Larissa Olson [place] Position: [facility] RN Member Role: Primary Care Nurse Name: Karen Roa RN Position: [facility] ED RN W/OE and Tasks Member Role: Primary Care Nurse Name: Mary Alice Stevens RN Position: [facility] RN Member Role: Primary Care Nurse Name: Beverly Grey Position: [facility] RN Member Role: Primary Care Nurse Name: Alexy Geronimo RN Position: [facility] RN Member Role: Primary Care Nurse Name: Raúl Rudolph DO Position: [facility] HOSPITAL EDUCATION COORDINATOR MD Member Role: [facility] HOSPITAL EDUCATION COORDINATOR Physician Address: Address: [address] [facility] [place] [address]- [place] Name: Evelyn Haynes RN Position: [facility] [...] Name: Keyana Ndiaye RN Position: [facility] Ammunition And Explosives Handler Member Role: Primary Care Nurse Name: Anabella Nicholson RN Position: [facility] AMB Nurse Member Role: Primary Care Nurse Name: Brenda Tomas RN Position: [facility] Outreach Member Role: Primary Care Nurse Name: Ramona Ybarra RN Position: [facility] RN Member Role: Primary Care Nurse Address: Address: [address] [place] [address] Name: Nancy Gallagher RN Position: [facility] Ammunition And Explosives Handler Member Role: Primary Care Nurse Name: Evelny Allen RN Position: [facility] [...] Persons Name: BARTOLOME IBRAHIM Address: [address] [place] [address] Name: GIANLUCA IBRAHIM Address: [address] [place] [address] Name: ABBIE IBRAHIM Address: [address] [place] [address] Name: SIM CERDA Name: DIANE CERDA Address: home [address] [place] [address] Name: SOLO CORRIGAN Address: [address] [place] [address] Name: SOLO FLORES Address: [address] [place] [address] Name: RAYMUNDO MAYFIELD Address: home [address] [place] [address]
--- OUTSIDE RECORDS SUMMARY | 2024-01-27 11:30 | XMS_ITS | Continuity of Care Document ---
Author Organization [facility] Address [address] [place] [address]- Care Team Providers Care Clinical Care Leader Name Role Phone Maranda WILCOX, Silvio Martinez Primary Care Physician Encounter [facility] Date(s): 05/08/20 - 06/07/20 [facility] [address] [place] [address]- [facility] Attending Physician: AdmMaximo diaz Admitting Physician: AdmtrMaximo [...] Refills 11, Tot. Refills 11, Maintenance, [facility]: [id number], 05/08/20 16:20:00 EDT, Supply, 169, cm, 04/15/20 [...] capsule, 1 Refills, Maintenance, 10/21/19 11:17:00 EST, [facility] #[id number], 1 capsule By Mouth 3 times a [...] 04/09/21 14:58:00 EDT, 04/09/20 14:57:00 EDT, Tablet, [facility] #[id number], 169, cm, 04/05/20 12:55:00 EDT, Height, 85, [...] tablet, 3 Refills, Maintenance, 05/28/20 11:56:00 EDT, [facility] #[id number], 170, cm, 05/27/20 0:11:00 EDT, Height,90.4, kg, [...] Acute 04/30/21 16:58:00 EDT, 04/30/20 16:57:00 EDT, [facility] #[id number], 169, cm, 04/15/20 17:38:00 EDT, Height, 85, kg, 03/15/20 2:33:00 EDT, Dry Weight Start Date: 04/30/20 Stop Date: 04/30/21 Status: Ordered methylprednisolone 2 gm injectable powder for injection See Instructions, inject 4 grams IM for adrenal crisis, # 48 Gm, 11 Refills, Acute 06/08/21 12:08:00 EDT, 05/03/21 10:04:00 EDT, [facility] #[id number], 169, cm, 04/15/20 17:38:00 EDT, Height, 85, kg, 03/15/20 2:33:00 EDT, Dry Weight Start Date: 05/03/21 Stop Date: 06/08/21 Status: Ordered methylprednisolone 2 gm injectable powder for injection See Instructions, inject 4 grams IM for adrenal crisis, # 48 Gm, 3 Refills, Acute 05/03/21 10:04:00EDT, 05/03/20 10:03:00 EDT, [facility] #[id number], 169, cm, 04/15/20 17:38:00 EDT, Height, 85, kg, 03/15/20 2:33:00 EDT, Dry Weight Start Date: 05/03/20 Stop Date: 05/03/21 Status: Ordered methylprednisolone 2 gm injectable powder for injection See Instructions, inject 4 grams IM for adrenal crisis, # 48 Gm, 3 Refills, Acute 05/03/21 11:58:00EDT, 05/03/21 10:04:00 EDT, [facility], 169, cm, 04/15/20 17:38:00 [...] 11 Refills, Soft Stop, 05/03/20 16:07:00 EDT, [facility] #[id number], 169, cm, 04/15/20 17:38:00 EDT, Height, 85, [...] Refills, Maintenance, 12/05/19 20:49:00 EDT, DIS Tablet, [facility] #[id number], 170, cm, 12/05/19 19:19:00 EDT, Height, 88.7, [...]
--- OUTSIDE RECORDS SUMMARY | 2024-01-27 11:30 | XMS_ITS | Continuity of Care Document ---
Author Organization [facility] Address [address] [place] [address]- Care Team Providers Care Emergency Doctor Name Role Phone Maranda WILCOX, Silvio Martinez Primary Care Physician Encounter [facility] Date(s): 12/29/20 - 01/04/[address] [address]- Discharge Disposition: A-D/C Home Attending Physician: Alexander Vera DO Admitting Physician: Arsen Geronimo DO Referring Physician: Magi Rolon MD Allergies, Adverse Reactions, Alerts Substance Reaction [...] 01/10/21 12:08:00 EDT, 01/04/21 12:08:00 EDT, Capsule, [facility] #[id number], Partial fill upon patient request if the [...] capsule, 1 Refills, Maintenance, 10/21/19 11:17:00 EST, [facility] #[id number], 1 capsule By Mouth 3 times a day,Instr:with each meal and snack, 170, cm, 10/20/19 13:48:00 EST, H... Start Date: 10/21/19 Status: Ordered Diflucan 150 mg oral tablet 1 tablet = 150 mg, By Mouth, Once, # 1 tablet, 0 Refills, Soft Stop, 01/04/21 12:08:00 EDT, Tablet,[facility] #[id number], Partial fill upon patient request if the [...] 04/09/21 14:58:00 EDT, 04/09/20 14:57:00 EDT, Tablet, [facility] #[id number], 169, cm, 04/05/20 12:55:00 EDT, Height, 85, kg, 03/15/20 2:33:00 EDT, Dry Weight Start Date: 04/09/20 Stop Date: 04/09/21 Status: Ordered Insulin Syringe, BD Ultra-Fine 1 cc 31 G x 8 mm (516in) See Instructions, # 60 each, Refills 11, [...] oral tablet 25 mg, Tablet, By Mouth, 01/03/21 21:00:00 EDT Start Date: 01/03/21 Stop Date: 01/03/21 Status: Completed metoprolol 25 mg oral tablet 25 mg, Tablet, By Mouth, 01/04/21 9:00:00 EDT Start Date: 01/04/21 Stop Date: 01/04/21 Status: Completed Metoprolol Tartrate 25 mg oral tablet 1 tablet = 25 mg, By Mouth, 2 times a day, Call if any significant lightheadedness, # 60 tablet, 3 Refills, Maintenance, 10/16/20 16:21:00 EST, Tablet, [facility] #[id number], Partial fill upon patient request if the prescription is for a schedul... Start Date: 10/16/20 Stop Date: 02/13/21 Status: Ordered ondansetron 8 mg oral tablet, disintegrating 1 tablet = 8 mg, By Mouth, 3 times a day, PRN Nausea & Vomiting, # 30 tablet, 0 Refills, Maintenance, 12/26/20 12:55:00 EDT, [facility] #89120, Partial fill upon patient request if the prescription is for a schedule II opioid drug., 170, cm,... Start Date: 12/26/20 Status: Ordered oxyCODONE 5 mg oral capsule 1 capsule = 5 mg, By Mouth, Every 6 hours, PRN for pain, # 12 capsule, 0 Refills, Acute 01/06/21 12:08:00 EDT, 01/04/21 12:07:00 EDT, Capsule, [facility] #[id number], Partial fill upon patient request if the prescription is for a schedule II opio... Start Date: 01/04/21 Stop Date: 01/06/21 Status: Ordered oxyCODONE 5 mg oral tablet 10 mg, Tablet, By Mouth, Every 6 hours, PRN for Pain , Severe, Routine, 01/02/21 17:04:00 EDT Start Date: 01/02/21 Stop Date: 01/04/21 Status: Discontinued potassium chloride 20 mEq oral tablet, extended release 1 tablet = 20 mEq, By Mouth, Daily, # 30 tablet, 7 Refills, Maintenance, 12/26/20 12:54:00 EDT, ER Tablet, [facility] #57401, 170, cm, 12/26/20 9:55:00 EDT, Height, 84.65, [...] Refills, Soft Stop, 10/02/20 11:57:00 EST, Powder, [facility] #[id number], Partial fill upon patient... Start Date: 10/02/20 [...] embolism), chronic(Confirmed) Active 1MRI compatible 2IAROGENIC Results Orders for Microbiology Reports Name Date Urine Culture (URINE CULTURE) 12/30/20 Microbiology Reports TEST:Urine Culture STATUS:Auth (Verified) BODY SITE: SOURCE:URINE COLLECTED DATE/TIME:12/30/20 10:25 AM Urine Culture SPECIMEN DESCRIPTION : URINE CLEAN CATCH/MIDSTREAM SPECIAL REQUESTS : NONE CULTURE : >100,000 COL/ML ENTEROCOCCUS FAECALIS REPORT STATUS : FINAL 01/02/2021 ORGANISM >100,000 COL/ML ENTEROCOCCUS FAECALIS METHOD MIN. INHIB. CONC. (MCG/ML) AMPICILLIN SUSCEPTIBLE CIPROFLOXACIN SUSCEPTIBLE NITROFURANTOIN SUSCEPTIBLE LEVOFLOXACIN SUSCEPTIBLE VANCOMYCIN SUSCEPTIBLE TETRACYCLINE RESISTANT GENTAMICIN SYNERGY ACTIVE IN SYNERGY STREPTOMYCIN SYNERGY ACTIVE IN SYNERGY Vital Signs Most recent to oldest [Reference Range]: 1 2 3 Height 170 cm (01/02/21 8:25 PM) 170 cm (01/01/21 8:59 PM) 170 cm (01/01/21 6:55 AM) Weight 83.3 kg (12/30/20 1:49 PM) 82.8 kg (12/30/20 6:27 AM) 82.8 kg (12/30/20 4:21 AM) Oxygen Saturation [94-100 %] 98 % (01/04/21 5:00 AM) 93 % *L* (01/03/21 6:00 PM) 97 % (01/03/21 9:46 AM) Pulse Rate [55-90 bpm] 68 bpm (01/04/21 8:09 AM) 70 bpm (01/04/21 5:00 AM) 88 bpm (01/03/21 7:57 PM) Body Mass Index [18.5-24.99] 28.82 *H* (12/30/20 1:49 PM) 28.65 *H* (12/30/20 6:27 AM) 28.65 *H* (12/30/20 4:21 AM) Blood Pressure [90-138/55-84 mm Hg] 116/77mm Hg (01/04/21 8:09 AM) 126/79mm Hg (01/04/21 5:00 AM) 137/93mm Hg (01/03/21 7:57 PM) Respiratory Rate [16-30 br/min] 18 br/min (01/04/21 8:50 AM) 18 br/min (01/04/21 7:50 AM) 18 br/min (01/04/21 5:00 AM) Temperature [96.8-100.4 DegF] 98.4 DegF (01/04/21 5:00 AM) 98.8 DegF (01/03/21 6:00 PM) 98.4 DegF (01/03/21 9:46 AM) Mode of Delivery (Oxygen) Room air (01/04/21 5:00 AM) Room air (01/03/21 6:00 PM) Room air (01/03/21 9:46 AM) Blood pressure sites Arm, right (01/04/21 5:00 AM) Arm, left (01/03/21 6:00 PM) Arm, left (01/03/21 9:46 AM) Temperature Route Oral (01/04/21 5:00 AM) Oral (01/03/21 6:00 PM) Oral (01/03/21 9:46 AM) Dry Weight 80.45 kg (12/30/20 1:49 PM) 82.8 kg (12/30/20 6:27 AM) 82.8 kg (12/30/20 4:21 AM) Weight Obtained Via Standing scale (12/30/20 1:49 PM) Dry Weight Obtained Via Patient/family s tated (12/30/20 1:49 PM) Social History Social History Type Response Smoking Status 10 or more cigarette s (1/2 pack or more)/day in last 30 days entered on: 08/06/19 Sex
--- OUTSIDE RECORDS SUMMARY | 2024-01-27 11:30 | XMS_ITS | Continuity of Care Document ---
Author Organization [facility] Address [address] [place] [address]- Care Team Providers Care Segmental Wall Installer Name Role Phone Mariella OCAMPO, Amelia Primary Care Physician Encounter [facility] Date(s): 12/04/19 - 12/14/19 [facility] [address] [place] [address]- [facility] Attending Physician: Admemily, Maximo Admitting Physician: AdmtrMaximo Referring Physician: Admtr, Ar8 [...] Stop 02/18/20 11:16:00EDT, 10/21/19 11:16:00 EST, Tablet, [facility] #[id number], 170, cm, 10/20/19 13:48:00 EST, Height, 92.3, kg, 10/15/19 6:38:00 EST, Dry Weight Start Date: 10/21/19 Stop Date: 02/18/20 Status: Ordered atorvastatin 20 mg oral tablet 1 tablet = 20 mg, By Mouth, Daily, # 90 tablet, 1 Refills, Maintenance, 10/21/19 11:16:00 EST, Tablet, [facility] #[id number], 170, cm, 10/20/19 13:48:00 EST, Height, 92.3, [...] 02/21/19 8:58:39 EDT, Route to Pharmacy Electronically, [id number], [facility] 3 Start Date: 02/21/19 Stop Date: 04/22/19 Status: Ordered Creon 36,000 units oral delayed release capsule 1 capsule, By Mouth, 3 times a day, with each meal and snack, # 270 capsule, 1 Refills, Maintenance, 10/21/19 11:17:00 EST, [facility] #[id number], 1 capsule By Mouth 3 times a [...] 08/24/19 9:15:39 EST, Route to Pharmacy Electronically, [id number], [facility] #[id number], 170, cm, 08/24/19 8:38:44 EST, H... Start [...] 0 Refills, Maintenance, 09/28/19 0:43:00 EST, Tablet, [facility] #[id number], 171, cm, 09/27/19 22:45:00 EST, Height, 92.2, [...] 0 Refills, Soft Stop, 09/28/19 0:51:00 EST, [id number], 171, cm, 09/27/19 22:45:00 EST, Height, 92.2, [...] 02/21/19 8:59:46 EDT, Route to Pharmacy Electronically, [id number], [facility] Start Date: 02/21/19 Stop [...] Refills, Maintenance, 12/05/19 20:49:00 EDT, DIS Tablet, [facility] #[id number], 170, cm, 12/05/19 19:19:00 EDT, Height, 88.7, [...]
--- OUTSIDE RECORDS SUMMARY | 2024-01-27 11:30 | XMS_ITS | Continuity of Care Document ---
Author Organization [facility] Address [address] [place] [address]- Care Team Providers Care Management Nurse Rn Name Role Phone Bienvenido WILCOX, Agustín Joaquin Primary Care Physician Encounter [facility] Date(s): 11/02/22 - 12/02/[address] [address]- Attending Physician: Maximo Cano Admitting Physician: Maximo Cano Referring Physician: Maximo Cano Referring Physician: Vero Cottrell Allergies, Adverse Reactions, Alerts Substance Reaction Severity Status propranolol Rash Active Zoloft tachycardia n/v Active Cefzil Hives Active Xarelto rash Active [...] tablet, 3 Refills, Maintenance, 08/17/22 15:43:00 EST, [facility] #[id number], 170, cm, 05/13/22 17:18:00 EDT, Height, 88.8, [...] tablet, 4 Refills, Maintenance, 11/11/22 15:10:00 EST, [facility] #[id number], Partial fill upon patient request if the prescription is for a schedule II opioid drug., 170, cm, 05/13/22 17:18:00 ED... Start Date: 11/11/22 Stop Date: 04/10/23 Status: Ordered busPIRone 15 mg oral tablet 1 tablet = 15 mg, By Mouth, 2 times a day, # 60 tablet, 4 Refills, Maintenance, 11/11/22 15:11:00 EST, Tablet, [facility] #[id number], Partial fill upon patient request if the prescription is for a schedule II opioid drug., 170, cm, 05/13/22 17:1... Start Date: 11/11/22 Stop Date: 04/10/23 Status: Ordered famotidine 20 mg oral tablet 20 mg, 1, tablet, By Mouth, 2 times a day, # 180 tablet, Refills 0, Tot. Refills 0, Maintenance, 01/08/21 13:59:00 EDT, Route to Pharmacy Electronically, [facility] #[id number], Partial fill upon patient request if the prescription is for a sched... Start Date: 01/08/21 Status: Ordered Flonase 50 mcg/inh nasal spray 2 sprays, Nares, Both, 2 times a day, PRN Congestion, # 16 Gm, 0 Refills, Maintenance, 08/20/20 11:17:00 EST, [place], [facility] #[id number], Partial fill upon patient request if the prescriptionis for a schedule II opioid drug., 170, cm, ... Start Date: 08/20/20 Status: Ordered gabapentin 300 mg oral capsule 300 mg, 1, capsule, By Mouth, 2 times a day, # 60 capsule, Refills 4, Tot. Refills 4, Maintenance, 11/11/22 15:13:00 EST, Route to Pharmacy Electronically, [facility] #[id number], Partial fill upon patient request if the [...] 09/25/22 15:38:00 EST, Route to Pharmacy Electronically, [facility] #[id number], Partial fill upon patient request if the prescription is for a sched... Start Date: 09/25/22 Stop Date: 09/20/23 Status: Ordered KlonoPIN 1 mg oral tablet 1 tablet = 1 mg, By Mouth, 2 times a day, dose is BID, # 60 tablet, 4 Refills, Maintenance, 11/11/22 15:11:00 EST, [facility] #[id number], NO EARLY REFILLS, 170, cm, 05/13/22 17:18:00 [...] 3 Refills, Maintenance, 09/13/22 16:21:00 EST, Tablet, [facility] #[id number], Partial fill upon patient request if the prescription is for a schedule II opioid dr... Start Date: 09/13/22 Stop Date: 09/08/23 Status: Ordered nitroglycerin 0.4 mg sublingual tablet 1 tablet, Sublingual, Every 5 minutes, PRN NEEDED FOR CHEST PAIN MAX 3 DOSES IN 15 MINUTES IF PAIN PERSISTS CALL 911, # 100 tablet, 3 Refills, Maintenance, 08/17/22 15:44:00 EST, [facility] #[id number], 170, cm, 05/13/22 17:18:00 EDT, Height,... Start Date: 08/17/22 Status: Ordered ondansetron 8 mg oral tablet, disintegrating 1 tablet = 8 mg, By Mouth, 3 times a day, PRN Nausea & Vomiting, # 30 tablet, 0 Refills, Maintenance, 12/26/20 12:55:00 EDT, [facility] #[id number], Partial fill upon patient request if the prescription is for a schedule II opioid drug., 170, cm,... Start Date: 12/26/20 Status: Ordered oxyCODONE 10 mg oral tablet = 10 mg, By Mouth, Every 8 hours, as needed; on a 15/month taper, # 60 tablet, 0 Refills, Maintenance, 03/24/21 11:54:00 EDT, Tablet, [facility] #[id number], Partial fill upon patient request ifthe prescription [...] capsule, 4 Refills, Maintenance, 11/11/22 15:17:00 EST, [facility] #[id number], Partial fill upon patient request if the [...] 11/11/22 15:08:00 EST, Route to Pharmacy Electronically, [facility] #[id number], Partial fill upon patient request if the [...] Refills, Soft Stop, 04/20/22 10:54:00 EDT, Powder, [facility] #[id number], Partial fill upon patient... Start Date: 04/20/22 Status: Ordered spironolactone 25 mg oral tablet 25 mg, 1, tablet, By Mouth, Daily, # 90 tablet, Refills 3, Tot. Refills 3, Maintenance, 09/13/22 16:11:00 EST, Route to Pharmacy Electronically, [facility] #[id number], Partial fill upon patientrequest if the prescription is for a schedule II op... Start Date: 09/13/22 Stop Date: 09/08/23 Status: Ordered traZODone 150 mg oral tablet 2 tablet = 300 mg, By Mouth, Daily at bedtime, Ins will not cover 300mg, # 60 tablet, 4 Refills, Maintenance, 11/27/22 9:29:00 EST, Tablet, [facility] #[id number], Partial fill upon patient request if the prescription is for a schedule II opioid... Start Date: 11/27/22 Status: Ordered traZODone 300 mg oral tablet 1 tablet = 300 mg, By Mouth, Daily at bedtime, # 30 tablet, 4 Refills, Maintenance, 11/11/22 15:09:00 [facility] #[id number], Partial fill upon patient request if the [...] Team Personnel Name: Daina Ibrahim RN Position: [facility] ED RN W/OE and Tasks Member Role: Primary Care Nurse Name: Madeline Baird RN Position: [facility] ED RN W/OE and Tasks Member Role: Primary Care Nurse Name: Teresa Carpio Position: [facility] RN Member Role: Primary Care Nurse Name: Inge Elizabeth RN Position: [facility] SN RN Member Role: Primary Care Nurse Name: Kelley Prasad RN Position: [facility] RN Member Role: Primary Care Nurse Name: Cindy Medeiros RN Position: [facility] RN Member Role: Primary Care Nurse Name: Linnette De La O RN Position: [facility] MANAGER OF SALES No Tools Member Role: Primary Care Nurse Name: Anna CATALYST MANUFACTURING OPERATORAlina Position: [facility] Associate Professional Member Role: Primary Care Nurse Address: Address: [address] [place] [address]- [place] Name: Mary Anne Kilpatrick RN Position: [facility] MR W/ Merge Member Role: Primary Care Nurse Name: Agustín Faria MD Position: [facility] Outreach Member Role: PCP Address: Address: [address] [facility] [address] Agustín [place] [address]- Name: Nicole Hernández RN Position: [facility] RN Member Role: Primary Care Nurse Name: Douglas Harris Position: [facility] Cardio/Pulm Mgr ([facility] Member Role: Primary Care Nurse Name: Lindsay Srinivasan CNM Position: [facility] Is Consultant Member Role: Primary Care Nurse Address: Address: [address] [place] [address] [place] [address]- Name: Larissa Klein Position: [facility] RN Member Role: Primary Care Nurse Name: Karen Roa RN Position: [facility] ED RN W/OE and Tasks Member Role: Primary Care Nurse Name: Mary Alice Stevens RN Position: [facility] RN Member Role: Primary Care Nurse Name: Beverly Grey Position: [facility] RN Member Role: Primary Care Nurse Name: Alexy Geronimo RN Position: [facility] RN Member Role: Primary Care Nurse Name: Raúl Rudolph DO Position: [facility] PERMANENT WAVER MD Member Role: Lifetime PERMANENT WAVER Physician Address: Address: [address] [place] [address] Dispatcher [place] [address]- [place] Name: Evelyn Haynes RN Position: [facility] RN Member Role: Primary Care Nurse Name: Crissy Metzger RN Position: [facility] RN Member Role: Primary Care Nurse Name: Elisa Gilbert RN Position: [facility] RN Member Role: Primary Care Nurse Name: Corina Solorio RN Position: [facility] PCO RN Member Role: Primary Care Nurse Name: Shawnee Lane RN Position: [facility] ED RN W/OE and Tasks Member Role: Primary Care Nurse Name: Erna Douglass RN Position: [facility] SN RN Member Role: Primary Care Nurse Name: Keyana Ndiaye RN Position: [facility] Builder Operator Member Role: Primary Care Nurse Name: Yudy Trujillo RN Position: [facility] RN Member Role: Primary Care Nurse Name: Anabella Nicholson RN Position: [facility] AMB Nurse Member Role: Primary Care Nurse Name: Ramona Ybarra RN Position: [facility] RN Member Role: Primary Care Nurse Address: Address: [address] [place] [address] Name: Nancy Gallagher RN Position: [facility] Builder Operator Member Role: Primary Care Nurse Name: Evelyn Allen RN Position: [facility] OB RN Member Role: Primary Care Nurse Name: Jackelin Watt RN Position: [facility] RN Member Role: Primary Care Nurse Name: Raymundo Elizabeth RN Position: [facility] SN RN Member Role: Primary Care Nurse Name: Opal Calderon RN Position: [facility] RN Member Role: Primary Care Nurse Name: Timmy RN Hte[place]aspen Position: [facility] SN RN Member Role: Primary Care Nurse Care Team Related Persons Name: BARTOLOME IBRAHIM Address: home [address] [place], [place] Name: GIANLUCA IBRAHIM Address: [address] [place], [place] Name: ABBIE IBRAHIM Address: [address] [place], [place] Name: SIM CERDA Name: DIANE CERDA Address: home [address] [place] [address] Name: SOLO CORRIGAN Address: [address] [place], [place] Name: SOLO FLORES Address: [address] [place], [place] Name: RAYMUNDO MAYFIELD Address: home [address] [place] [address]
--- OUTSIDE RECORDS SUMMARY | 2024-01-27 11:30 | XMS_ITS | Continuity of Care Document ---
Author Organization [facility] [place] Address [address] [place] [address]- Care Team Providers Care Grab Setter Name Role Phone Dash WILCOX ([place]), Paola Anderson Primary Care Physician Encounter [facility] Date(s): 05/17/23 - 07/03/23 [facility] [address] [place] [address]- Attending Physician: Amos Appiah MD Allergies, Adverse Reactions, Alerts Substance Reaction Severity Status propranolol Rash Active droperidol-fentanyl 1 Active Nardil Palpitations - rapid N&V - Nausea and vomiting C/O - a headache Active Reglan severe anxiety~panic Active Xarelto rash Active Zoloft tachycardia n/v Active Inderal n/v,tachcardia [...] Other : Medications (Vitamin D3) Cholecalciferol 400 RETIREMENT units/mL oral syringe 1 mL = 10 [...] tablet, 3 Refills, Maintenance, 08/17/22 15:43:00 EST, [facility] #[id number], 170, cm, 05/13/22 17:18:00 EDT, Height, 88.8, [...] 01/08/21 13:59:00 EDT, Route to Pharmacy Electronically, [facility] #[id number], Partial fill upon patient request if the prescription is for a sched... Start Date: 01/08/21 Status: Ordered Flonase 50 mcg/inh nasal spray 2 sprays, Nares, Both, 2 times a day, PRN Congestion, # 16 Gm, 0 Refills, Maintenance, 08/20/20 11:17:00 EST, [place], [facility] #[id number], Partial fill upon patient request if the prescriptionis for a schedule II opioid drug., 170, cm, ... Start Date: 08/20/20 Status: Ordered gabapentin 300 mg oral capsule See Instructions, 1 cap in the AM, 2 in the afternoon and 2 at bedtime, # 1 each, Refills 4, Tot. Refills 4, Maintenance, 11/11/22 15:13:00 EST, Instructions Replace Required Details, Route to Pharmacy Electronically, [facility] #[id number], Part... Start Date: 11/11/22 Status: Ordered Insulin [...] 05/14/23 20:59:00 EDT, Route to Pharmacy Electronically, [facility] #[id number], Partial fill upon patient request if the [...] 0 Refills, Maintenance, 05/13/23 10:33:00 EDT, Tablet, [facility] #[id number], Partial fill upon patient request if the prescription is for a schedule II opioid drug., 1... Start Date: 05/13/23 Stop Date: 05/16/23 Status: Ordered prazosin 2 mg oral capsule 2 capsule = 4 mg, By Mouth, Daily at bedtime, if PO intake is low or BP low below 110/70 only take one cap, # 60 capsule, 4 Refills, Maintenance, 11/11/22 15:17:00 EST, [facility] #[id number], Partial fill upon patient request if the [...] 03/10/23 15:36:00 EDT, Route to Pharmacy Electronically, [facility] #[id number], Partial fill upon patient request if the [...] Refills, Soft Stop, 05/27/23 14:16:00 EDT, Powder, [facility] #[id number], Partial fill upon patient... Start Date: 05/27/23 Status: Ordered spironolactone 25 mg oral tablet 25 mg, 1, tablet, By Mouth, Daily, # 30 tablet, Refills 3, Tot. Refills 3, Maintenance, 05/14/23 20:55:00 EDT, Route to Pharmacy Electronically, [facility] #[id number], Partial fill upon patientrequest if the prescription [...] Dash WILCOX ([place]) , Paola Anderson Position: [facility] Outreach Member Role: PCP Address: Address: [address] [place] [id number] [place] Name: Daina Ibrahim RN Position: [facility] ED RN W/OE and Tasks Member Role: Primary Care Nurse Name: Madeline Baird RN Position: [facility] ED RN W/OE and Tasks Member Role: Primary Care Nurse Name: Teresa Carpio Position: [facility] RN Member Role: Primary Care Nurse Name: Inge Elizabeth RN Position: [facility] RN Member Role: Primary Care Nurse Name: Kelley Prasad RN Position: [facility] RN Member Role: Primary Care Nurse Name: Cindy Medeiros RN Position: [facility] RN Member Role: Primary Care Nurse Name: Linnette De La O RN Position: [facility] CHRISTMAS TREE CONTRACTOR Member Role: Primary Care Nurse Name: Alina Castillo NP Position: [facility] Associate Professional Member Role: Primary Care Nurse Address: Address: [address] [facility] [place] [address]- [place] Name: Mary Anne Kilpatrick RN Position: [facility] MR W/ Merge Member Role: Primary Care Nurse Name: Nicole Hernández RN Position: [facility] RN Member Role: Primary Care Nurse Name: Lindsay Srinivasan CNM Position: [facility] Tower Loader Operator Member Role: Primary Care Nurse Address: Address: [address] [place] [address] [place] [address]- [place] Name: Larissa Olson [place] Position: [facility] RN Member Role: Primary Care Nurse Name: Karen Roa RN Position: [facility] ED RN W/OE and Tasks Member Role: Primary Care Nurse Name: Mary Alice Stevens RN Position: [facility] RN Member Role: Primary Care Nurse Name: Beverly Grey Position: [facility] RN Member Role: Primary Care Nurse Name: Alexy Geronimo RN Position: [facility] RN Member Role: Primary Care Nurse Name: Raúl Rudolph DO Position: [facility] TURNER MACHINE OPERATOR MD Member Role: Lifetime TURNER MACHINE OPERATOR Physician Address: Address: [address] [facility] [place] [address]- [place] Name: Evelyn Haynes RN Position: [facility] RN Member Role: Primary Care Nurse Name: Crissy Metzger RN Position: [facility] RN Member Role: Primary Care Nurse Name: Elisa Gilbert RN Position: [facility] RN Member Role: Primary Care Nurse Name: Corina Solorio RN Position: [facility] AMB Nurse Member Role: Primary Care Nurse Name: Shawnee Lane RN Position: [facility] ED RN W/OE and Tasks Member Role: Primary Care Nurse Name: Erna Douglass RN Position: [facility] SN RN Member Role: Primary Care Nurse Name: Keyana Ndiaye RN Position: [facility] Occupational Safety And Health Manager Member Role: Primary Care Nurse Name: Anabella Nicholson RN Position: [facility] AMB Nurse Member Role: Primary Care Nurse Name: Brenda Tomas RN Position: [facility] Outreach Member Role: Primary Care Nurse Name: Ramona Ybarra RN Position: [facility] RN Member Role: Primary Care Nurse Address: Address: [address] [place] [id number] Name: Elliott RNNancy Position: [facility] Occupational Safety And Health Manager Member Role: Primary Care Nurse Name: Evelyn Allen RN Position: [facility] OB RN Member Role: Primary Care Nurse Name: Jackelin Watt RN Position: [facility] RN Member Role: Primary Care Nurse Name: Raymundo Elizabeth RN Position: [facility] SN RN Member Role: Primary Care Nurse Name: Opal Calderon RN Position: [facility] RN Member Role: Primary Care Nurse Name: Timmy RNYadiel Position: [facility] SN RN Member Role: Primary Care Nurse Care Team Related Persons Name: BARTOLOME IBRAHIM Address: [address] [place] [address] Name: GIANLUCA IBRAHIM Address: [address] [place] [address] Name: ABBIE IBRAHIM Address: [address] [place] [address] Name: SIM CERDA Name: DIANE CERDA Address: [address] [place] [address] Name: SOLO CORRIGAN Address: [address] [place] [address] Name: SOLO FLORES Address: [address] [place] [address] Name: RAYMUNDO MAYFIELD Address: [address] [place] [address]
--- OUTSIDE RECORDS SUMMARY | 2024-01-27 11:30 | XMS_ITS | Continuity of Care Document ---
Author Organization [facility] [place] Address [address] [place] [address]- Care Team Providers Care Splicer Apprentice Name Role Phone Maranda WILCOX, Silvio Martinez Primary Care Physician Encounter [facility] Date(s): 03/21/20 - 04/20/20 [facility] [place] [address] [place] [address]- [facility] Allergies, Adverse Reactions, Alerts [...] capsule, 1 Refills, Maintenance, 10/21/19 11:17:00 EST, [facility] #[id number], 1 capsule By Mouth 3 times a [...] 04/09/21 14:58:00 EDT, 04/09/20 14:57:00 EDT, Tablet, [facility] #[id number], 169, cm, 04/05/20 12:55:00 EDT, Height, 85, [...] 11 Refills, Soft Stop, 04/09/20 14:51:00 EDT, [facility] #[id number], 169, cm, 04/05/20 12:55:00 EDT, Height, 85, [...] Refills, Maintenance, 12/05/19 20:49:00 EDT, DIS Tablet, [facility] #[id number], 170, cm, 12/05/19 19:19:00 EDT, Height, 88.7, [...]
--- OUTSIDE RECORDS SUMMARY | 2024-01-27 11:31 | XMS_ITS | Continuity of Care Document ---
Author Organization [facility] ter Address [address] [place] [address]- Care Team Providers Care Awning Hanger Supervisor Name Role Phone Bienvenido WILCOX, Agustín Joaquin Primary Care Physician [phone] Encounter [facility] [facility] Date(s): 05/08/22 - 07/02/[address] [address] Attending Physician: Sourav Urrutia MD Admitting Physician: [...] tablet, 4 Refills, Maintenance, 02/04/22 8:07:00 EDT, [facility] #[id number], Partial fill upon patient request if the prescription is for a schedule II opioid drug., 170, cm, 01/21/22 12:57:00 EDT, Height... Start Date: 02/04/22 Stop Date: 07/04/22 Status: Ordered busPIRone 15 mg oral tablet 1 tablet = 15 mg, By Mouth, 3 times a day, # 90 tablet, 4 Refills, Maintenance, 02/04/22 8:08:00 EDT, Tablet, [facility] #[id number], Partial fill upon patient request if the prescription is fora schedule II opioid drug., 170, cm, 01/21/22 12:57... Start Date: 02/04/22 Stop Date: 07/04/22 Status: Ordered famotidine 20 mg oral tablet 20 mg, 1, tablet, By Mouth, 2 times a day, # 180 tablet, Refills 0, Tot. Refills 0, Maintenance, 01/08/21 13:59:00 EDT, Route to Pharmacy Electronically, [facility] #[id number], Partial fill upon patient request if the prescription is for a sched... Start Date: 01/08/21 Status: Ordered Flonase 50 mcg/inh nasal spray 2 sprays, Nares, Both, 2 times a day, PRN Congestion, # 16 Gm, 0 Refills, Maintenance, 08/20/20 11:17:00 EST, [place], [facility] #[id number], Partial fill upon patient request if the [...] 09/25/22 15:38:00 EST, Route to Pharmacy Electronically, [facility] #[id number], Partial fill upon patient request if the prescription is for a sched... Start Date: 09/25/22 Stop Date: 09/20/23 Status: Ordered isosorbide mononitrate 30 mg oral tablet, extended release 30 mg, 1, tablet, By Mouth, Daily in AM, for 90 days, # 90 tablet, Refills 3, Tot. Refills 3, Hard Stop 09/25/22 15:38:00 EST, 09/30/21 15:38:00 EST, Route to Pharmacy Electronically, [facility] #[id number], Partial fill upon patient request if t... Start Date: 09/30/21 Stop Date: 09/25/22 Status: Ordered KlonoPIN 1 mg oral tablet 1 tablet = 1 mg, By Mouth, 2 times a day, for 30 days, 0.5 mg midday, # 75 tablet, 4 Refills, Hard Stop 07/04/22 8:09:00 EDT, 02/04/22 8:09:00 EDT, [facility] #[id number], 170, cm, 01/21/22 12:57:00 EDT, Height, 80.9, kg, 01/06/22 14:39:00 EDT, D... Start Date: 02/04/22 Stop Date: 07/04/22 Status: Ordered KlonoPIN 1 mg oral tablet 1 tablet = 1 mg, By Mouth, 2 times a day, dose is BID, # 60 tablet, 0 Refills, Maintenance, 07/02/22 13:40:00 EDT, [facility] #[id number], NO EARLY REFILLS, 170, cm, 05/13/22 17:18:00 [...] 3 Refills, Maintenance, 09/13/22 16:21:00 EST, Tablet, [facility] #[id number], Partial fill upon patient request if the prescription is for a schedule II opioid dr... Start Date: 09/13/22 Stop Date: 09/08/23 Status: Ordered Metoprolol Tartrate 50 mg oral tablet 1.5 tablet = 75 mg, By Mouth, 2 times a day, for 90 days, Take 75 mg twice daily, # 270 tablet, 3 Refills, Hard Stop 09/13/22 16:21:00 EST, 09/18/21 16:21:00 EST, Tablet, [facility] #[id number],Partial fill upon patient request if the prescripti... Start Date: 09/18/21 Stop Date: 09/13/22 Status: Ordered nitroglycerin 0.4 mg sublingual tablet 1 tablet = 0.4 mg, Sublingual, Every 5 minutes, PRN as needed for chest pain, not to exceed 3 doses/15 min--if pain persists, seek medical attention, # 100 tablet, 3 Refills, Maintenance, 10/16/21 11:32:00 EST, Tablet, [facility] #[id number], Par... Start Date: 10/16/21 Stop Date: 02/13/22 Status: Ordered ondansetron 8 mg oral tablet, disintegrating 1 tablet = 8 mg, By Mouth, 3 times a day, PRN Nausea & Vomiting, # 30 tablet, 0 Refills, Maintenance, 12/26/20 12:55:00 EDT, [facility] #[id number], Partial fill upon patient request if the prescription is for a schedule II opioid drug., 170, cm,... Start Date: 12/26/20 Status: Ordered oxyCODONE 10 mg oral tablet = 10 mg, By Mouth, Every 8 hours, as needed; on a 15/month taper, # 60 tablet, 0 Refills, Maintenance, 03/24/21 11:54:00 EDT, Tablet, [facility] #[id number], Partial fill upon patient request ifthe prescription [...] capsule, 4 Refills, Maintenance, 02/04/22 8:06:00 EDT, [facility] #[id number], Partial fill upon patient request if the [...] Refills, Soft Stop, 04/20/22 10:54:00 EDT, Powder, [facility] #[id number], Partial fill upon patient... Start Date: 04/20/22 Status: Ordered spironolactone 25 mg oral tablet 25 mg, 1, tablet, By Mouth, Daily, # 90 tablet, Refills 3, Tot. Refills 3, Maintenance, 09/13/22 16:11:00 EST, Route to Pharmacy Electronically, [facility] #[id number], Partial fill upon patientrequest if the prescription is for a schedule II op... Start Date: 09/13/22 Stop Date: 09/08/23 Status: Ordered spironolactone 25 mg oral tablet 25 mg, 1, tablet, By Mouth, Daily, for 90 days, # 90 tablet, Refills 3, Tot. Refills 3, Hard Stop 09/13/22 16:11:00 EST, 09/18/21 16:11:00 EST, Route to Pharmacy Electronically, [facility] #[id number], Partial fill upon patient request if the pre... Start Date: 09/18/21 Stop Date: 09/13/22 Status: Ordered traZODone 150 mg oral tablet 1 tablet = 150 mg, By Mouth, Daily at bedtime, for 30 days, # 30 tablet, 4 Refills, Hard Stop 07/04/22 8:14:00 EDT, 02/04/22 8:14:00 EDT, Tablet, [facility] #[id number], Partial fill upon patient request if the prescription is for a schedule II o... Start Date: 02/04/22 Stop Date: 07/04/22 Status: Ordered traZODone 150 mg oral tablet 1 tablet = 150 mg, By Mouth, Daily at bedtime, # 30 tablet, 0 Refills, Maintenance, 07/02/22 13:45:00 EDT, Tablet, [facility] #[id number], Partial fill upon patient request if the [...] known Patient Care team information Personnel Name: Bienvenido WILCOX, Agustín Joaquin Address: Address: [address] [place] [address] [address] Ag[place] [address]-
--- OUTSIDE RECORDS SUMMARY | 2024-01-27 11:31 | XMS_ITS | Continuity of Care Document ---
Author Organization [facility] Address [address] [place] [address]- Care Team Providers Care Business Unit Leader Name Role Phone Maranda WILCOX, Silvio Martinez Primary Care Physician Encounter [facility] Date(s): 03/01/20 - 06/29/[address] [address]- [facility] Attending Physician: Angela OCAMPO, Anna Castro Allergies, Adverse Reactions, Alerts Substance Reaction Severity Status propranolol Rash Active Cefzil Hives Active Compazine severe anxiety Hives Active Xarelto rash Active Lexapro n/v Active Zoloft tachycardia n/v Active Nardil Palpitations - rapid N&V - Nausea and vomiting C/O - a headache Active Inderal n/v,tachcardia Active Haldol Active Reglan severe anxiety~panic Active Immunizations Given [...] Refills 11, Tot. Refills 11, Maintenance, [facility]: [id number], 05/08/20 16:20:00 EDT, Supply, 169, cm, 04/15/20 [...] capsule, 1 Refills, Maintenance, 10/21/19 11:17:00 EST, [facility] #[id number], 1 capsule By Mouth 3 times a [...] 04/09/21 14:58:00 EDT, 04/09/20 14:57:00 EDT, Tablet, [facility] #[id number], 169, cm, 04/05/20 12:55:00 EDT, Height, 85, [...] tablet, 3 Refills, Maintenance, 05/28/20 11:56:00 EDT, [facility] #[id number], 170, cm, 05/27/20 0:11:00 EDT, Height,90.4, kg, [...] Acute 04/30/21 16:58:00 EDT, 04/30/20 16:57:00 EDT, [facility] #[id number], 169, cm, 04/15/20 17:38:00 EDT, Height, 85, kg, 03/15/20 2:33:00 EDT, Dry Weight Start Date: 04/30/20 Stop Date: 04/30/21 Status: Ordered methylprednisolone 2 gm injectable powder for injection See Instructions, inject 4 grams IM for adrenal crisis, # 48 Gm, 11 Refills, Acute 06/08/21 12:08:00 EDT, 05/03/21 10:04:00 EDT, [facility]/pharmacy #[id number], 169, cm, 04/15/20 17:38:00 EDT, Height, 85, kg, 03/15/20 2:33:00 EDT, Dry Weight Start Date: 05/03/21 Stop Date: 06/08/21 Status: Ordered methylprednisolone 2 gm injectable powder for injection See Instructions, inject 4 grams IM for adrenal crisis, # 48 Gm, 3 Refills, Acute 05/03/21 10:04:00EDT, 05/03/20 10:03:00 EDT, [facility] #[id number], 169, cm, 04/15/20 17:38:00 EDT, Height, 85, kg, 03/15/20 2:33:00 EDT, Dry Weight Start Date: 05/03/20 Stop Date: 05/03/21 Status: Ordered methylprednisolone 2 gm injectable powder for injection See Instructions, inject 4 grams IM for adrenal crisis, # 48 Gm, 3 Refills, Acute 05/03/21 11:58:00EDT, 05/03/21 10:04:00 EDT, [facility], 169, cm, 04/15/20 17:38:00 [...] 0 Refills, Maintenance, 06/18/20 16:48:00 EDT, Tablet, [facility] #[id number], 170, cm, 06/18/20 15:14:00 EDT, Height, 90.4, [...] 11 Refills, Soft Stop, 05/03/20 16:07:00 EDT, [facility] #[id number], 169, cm, 04/15/20 17:38:00 EDT, Height, 85, [...] Refills, Maintenance, 12/05/19 20:49:00 EDT, DIS Tablet, [facility] #[id number], 170, cm, 12/05/19 19:19:00 EDT, Height, 88.7, [...]
--- OUTSIDE RECORDS SUMMARY | 2024-01-27 11:31 | XMS_ITS | Continuity of Care Document ---
Author Organization [facility] Address [address] [place] [address]- Care Team Providers Care Chief Payroll Clerk Name Role Phone Agustín Faria MD Primary Care Physician Encounter [facility] Date(s): 05/24/21 - 05/24/[address] [address]- Discharge Disposition: A-D/C Home Attending Physician: Jessica [...] EST, Film Start Date: 08/24/19 Status: Ordered MorPHINE Inj 2 mg, Injection, IV Push Slowly, Once, PRN for Pain , Moderate, STAT, 05/24/21 17:31:00 EDT Start Date: 05/24/21 Stop Date: 05/24/21 Status: Completed ondansetron 8 mg oral tablet, disintegrating 1 tablet = 8 mg, By Mouth, 3 times a day, PRN Nausea & Vomiting, # 30 tablet, 0 Refills, Maintenance, 12/26/20 12:55:00 EDT, [facility] #[id number], Partial fill upon patient request if the prescription is for a schedule II opioid drug., 170, cm,... Start Date: 12/26/20 Status: Ordered Potassium Chloride = 40 mEq, By Mouth, 2 times a day, 0 Refills, Maintenance, 01/20/21 5:39:00 EDT, Partial fill upon patient request if the prescription is for a schedule II opioid drug. Start Date: 01/20/21 Status: Ordered Potassium Chloride (Nwr-Vwsp-Gvl M20) 20 mEq oral tablet, extended release 1 tablet = 20 mEq, By Mouth, 2 times a day, # 10 tablet, 0 Refills, Maintenance, 01/20/21 7:48:00 EDT, [facility] #[id number], Partial fill upon patient request if the [...] Refills, Soft Stop, 04/15/21 10:31:00 EDT, Powder, [facility]/pharmacy #[id number], Partial fill upon patient request i... [...] 0 Refills, Maintenance, 01/20/21 7:49:00 EDT, Tablet, [facility] #[id number], Partial fill upon patient request if the prescription is for a schedule II opioid drug., 1... Start Date: 01/20/21 Status: Ordered Zofran 4 mg oral tablet 1 tablet = 4 mg, By Mouth, Every 8 hours, for 3 days, # 9 tablet, 0 Refills, Acute 05/27/21 21:28:00 EDT, 05/24/21 21:28:00 EDT, Tablet, [facility] #[id number], Partial fill upon patient requestif the prescription is for a schedule II opioid osmar... Start Date: 05/24/21 Stop Date: 05/27/21 Status: Ordered Problem List Condition Effective Dates [...] Range]: 1 2 3 Height 170 cm (05/24/21 9:31 PM) 170 cm (05/24/21 4:48 PM) Weight 79.3 kg (05/24/21 4:48 PM) Oxygen Saturation [94-100 %] 98 % (05/24/21 9:31 PM) 100 % (05/24/21 7:35 PM) 100 % (05/24/21 4:48 PM) Pulse Rate [55-90 bpm] 73 bpm (05/24/21 9:31 PM) 60 bpm (05/24/21 7:35 PM) 92 bpm *H* (05/24/21 4:48 PM) Blood Pressure [90-138/55-84 mm Hg] 135/72mm Hg (05/24/21 9:31 PM) 112/75mm Hg (05/24/21 7:35 PM) 127/85mm Hg (05/24/21 4:48 PM) Respiratory Rate [16-30 br/min] 18 br/min (05/24/21 9:31 PM) 18 br/min (05/24/21 7:35 PM) 18 br/min (05/24/21 6:39 PM) Temperature [96.8-100.4 DegF] 98.2 DegF (05/24/21 9:31 PM) 98.5 DegF (05/24/21 4:48 PM) Mode of Delivery (Oxygen) Room air (05/24/21 9:31 PM) Room air (05/24/21 4:48 PM) Blood pressure sites Arm, left (05/24/21 9:31 PM) Arm, left (05/24/21 4:48 PM) Temperature Route Oral (05/24/21 9:31 PM) Oral (05/24/21 4:48 PM) Dry Weight 79.3 kg (05/24/21 4:48 PM) Weight Obtained Via Standing scale (05/24/21 4:48 PM) Dry Weight Obtained Via Standing scale (05/24/21 4:48 PM) Social History Social History Type Response Smoking Status Current every day rowan munoz; Previous treatment: Counseling; Previous treatment: Nicotine replacement; Other: 1/2 ppd x 20 yrs; entered on: 09/16/16 Sex
--- OUTSIDE RECORDS SUMMARY | 2024-01-27 11:31 | XMS_ITS | Continuity of Care Document ---
Author Organization [facility] Address [address] [place] [address]- Care Team Providers Care Display Specialist Name Role Phone Maranda WILCOX, Silvio Martinez Primary Care Physician Encounter [facility] Date(s): 04/11/20 - 05/11/20 [facility] [address] [place] [address]- [facility] Allergies, Adverse Reactions, Alerts Substance Reaction [...] mL, Refills 11, Tot. Refills 11, Maintenance, [facility]: [id number], 05/08/20 16:20:00 EDT, Supply, 169, cm, 04/15/20 [...] capsule, 1 Refills, Maintenance, 10/21/19 11:17:00 EST, [facility] #[id number], 1 capsule By Mouth 3 times a [...] 04/09/21 14:58:00 EDT, 04/09/20 14:57:00 EDT, Tablet, [facility] #[id number], 169, cm, 04/05/20 12:55:00 EDT, Height, 85, [...] Acute 04/30/21 16:58:00 EDT, 04/30/20 16:57:00 EDT, [facility] #[id number], 169, cm, 04/15/20 17:38:00 EDT, Height, 85, kg, 03/15/20 2:33:00 EDT, Dry Weight Start Date: 04/30/20 Stop Date: 04/30/21 Status: Ordered methylprednisolone 2 gm injectable powder for injection See Instructions, inject 4 grams IM for adrenal crisis, # 48 Gm, 11 Refills, Acute 06/08/21 12:08:00 EDT, 05/03/21 10:04:00 EDT, [facility]/pharmacy #[id number], 169, cm, 04/15/20 17:38:00 EDT, Height, 85, kg, 03/15/20 2:33:00 EDT, Dry Weight Start Date: 05/03/21 Stop Date: 06/08/21 Status: Ordered methylprednisolone 2 gm injectable powder for injection See Instructions, inject 4 grams IM for adrenal crisis, # 48 Gm, 3 Refills, Acute 05/03/21 10:04:00EDT, 05/03/20 10:03:00 EDT, [facility] #[id number], 169, cm, 04/15/20 17:38:00 EDT, Height, 85, kg, 03/15/20 2:33:00 EDT, Dry Weight Start Date: 05/03/20 Stop Date: 05/03/21 Status: Ordered methylprednisolone 2 gm injectable powder for injection See Instructions, inject 4 grams IM for adrenal crisis, # 48 Gm, 3 Refills, Acute 05/03/21 11:58:00EDT, 05/03/21 10:04:00 EDT, [facility], 169, cm, 04/15/20 17:38:00 EDT, [...] 11 Refills, Soft Stop, 05/03/20 16:07:00 EDT, [facility] #[id number], 169, cm, 04/15/20 17:38:00 EDT, Height, 85, [...] Refills, Maintenance, 12/05/19 20:49:00 EDT, DIS Tablet, [facility] #[id number], 170, cm, 12/05/19 19:19:00 EDT, Height, 88.7, [...]
--- OUTSIDE RECORDS SUMMARY | 2024-01-27 11:31 | XMS_ITS | Continuity of Care Document ---
Author Organization [facility] Address [address] [place] [address]- Care Team Providers Care Lugger Name Role Phone Bienvenido WILCOX, Agustín Joaquin Primary Care Physician [phone] Encounter [facility] Date(s): 12/08/21 - 01/07/22 [facility] [address] [place] [address]- Allergies, Adverse Reactions, Alerts Substance Reaction Severity Status propranolol Rash Active Haldol Active Reglan severe anxiety~panic Active Xarelto rash Active Zoloft tachycardia n/v Active Nardil Palpitations - rapid N&V - Nausea and vomiting C/O - a headache Active Inderal n/v,tachcardia Active Cefzil Hives Active Compazine severe anxiety Hives Active Lexapro n/v Active Immunizations Given and [...] opioid drug. Start Date: 12/30/20 Status: Ordered ibuprofen 600 mg oral tablet 600 mg, 1, tablet, By Mouth, 3 times a day, for 30 days, # 90 tablet, Refills 0, Tot. Refills 0, Acute 02/05/22 15:44:00 EDT, 01/06/22 15:44:00 EDT, Route to Pharmacy Electronically, [facility] #[id number], Partial fill upon patient request if th... Start Date: 01/06/22 Stop Date: 02/05/22 Status: Ordered Insulin Syringe, BD Ultra-Fine 1 [...] tablet, 0 Refills, Maintenance, 12/26/20 12:55:00 EDT, [facility] #[id number], Partial fill upon patient request if the prescription is for a schedule II opioid drug., 170, cm,... Start Date: 12/26/20 Status: Ordered oxyCODONE 5 mg oral tablet 5 mg, 1, tablet, By Mouth, Every 6 hours, PRN, for 5 days, # 20 tablet, Refills 0, Tot. Refills 0, Acute 01/11/22 15:44:00 EDT, Pain , Severe, 01/06/22 15:44:00 EDT, Route to Pharmacy Electronically[facility][id number], Partial fill upon pedro pablo... Start Date: 01/06/22 Stop Date: 01/11/22 Status: Ordered Potassium Chloride = 40 mEq, [...] Refills, Soft Stop, 10/27/21 14:15:00 EST, Powder, [facility] #[id number], Partial fill upon patient... Start Date: 10/27/21 [...] Model STENT STRETCH VL 6FR - BSCI ([id number]) 1 Volley Amanda Unknown GO:No Information Assigning Authority: FDA
--- OUTSIDE RECORDS SUMMARY | 2024-01-27 11:31 | XMS_ITS | Continuity of Care Document ---
Author Organization [facility] Address [address] [place] [address]- Care Team Providers Care Legal Stenographer Name Role Phone Maranda WILCOX, Silvio Martinez Primary Care Physician Encounter [facility] Date(s): 10/08/20 - 11/07/20 [facility] [address] [place] [address]- Allergies, Adverse Reactions, Alerts Substance Reaction Severity [...] capsule, 1 Refills, Maintenance, 10/21/19 11:17:00 EST, [facility] #[id number], 1 capsule By Mouth 3 times a [...] 04/09/21 14:58:00 EDT, 04/09/20 14:57:00 EDT, Tablet, [facility] #[id number], 169, cm, 04/05/20 12:55:00 EDT, Height, 85, [...] tablet, 3 Refills, Maintenance, 05/28/20 11:56:00 EDT, [facility] #[id number], 170, cm, 05/27/20 0:11:00 EDT, Height,90.4, kg, [...] 3 Refills, Maintenance, 10/16/20 16:21:00 EST, Tablet, [facility] #[id number], Partial fill upon patient request if the [...] 0 Refills, Maintenance, 06/18/20 16:48:00 EDT, Tablet, [facility] #[id number], 170, cm, 06/18/20 15:14:00 EDT, Height, 90.4, kg, 06/18/20 15:14:00 EDT, Dry Weight Start Date: 06/18/20 Stop Date: 06/25/20 Status: Ordered ondansetron 8 mg oral tablet, disintegrating 1 tablet = 8 mg, By Mouth, 3 times a day, # 10 tablet, 0 Refills, Maintenance, 10/30/20 17:44:00 EST, [facility] #[id number], Partial fill upon patient request if the [...] Refills, Soft Stop, 10/02/20 11:57:00 EST, Powder, [facility] #[id number], Partial fill upon patient... Start Date: 10/02/20 [...]
--- OUTSIDE RECORDS SUMMARY | 2024-01-27 11:31 | XMS_ITS | Continuity of Care Document ---
Author Organization [facility] Address [address] [place] [address]- Care Team Providers Care Jewel Blocker And Sawyer Name Role Phone Bienvenido WILCOX, Agustín Joaquin Primary Care Physician [phone] [place] [facility] Date(s): 04/20/22 - 05/20/22 [facility] [address] [place] [address]- Allergies, Adverse Reactions, Alerts Substance Reaction Severity Status propranolol Rash Active Haldol Active Xarelto rash Active Zoloft tachycardia n/v [...] tablet, 4 Refills, Maintenance, 02/04/22 8:07:00 EDT, [facility] #[id number], Partial fill upon patient request if the prescription is for a schedule II opioid drug., 170, cm, 01/21/22 12:57:00 EDT, Height... Start Date: 02/04/22 Stop Date: 07/04/22 Status: Ordered busPIRone 15 mg oral tablet 1 tablet = 15 mg, By Mouth, 3 times a day, # 90 tablet, 4 Refills, Maintenance, 02/04/22 8:08:00 EDT, Tablet, [facility] #[id number], Partial fill upon patient request if the prescription is fora schedule II opioid drug., 170, cm, 01/21/22 12:57... Start Date: 02/04/22 Stop Date: 07/04/22 Status: Ordered famotidine 20 mg oral tablet 20 mg, 1, tablet, By Mouth, 2 times a day, # 180 tablet, Refills 0, Tot. Refills 0, Maintenance, 01/08/21 13:59:00 EDT, Route to Pharmacy Electronically, [facility] #[id number], Partial fill upon patient request if the prescription is for a sched... Start Date: 01/08/21 Status: Ordered Flonase 50 mcg/inh nasal spray 2 sprays, Nares, Both, 2 times a day, PRN Congestion, # 16 Gm, 0 Refills, Maintenance, 08/20/20 11:17:00 EST, [place], [facility] #[id number], Partial fill upon patient request if the [...] 09/25/22 15:38:00 EST, Route to Pharmacy Electronically, [facility] #[id number], Partial fill upon patient request if the prescription is for a sched... Start Date: 09/25/22 Stop Date: 1/1/24 Status: Ordered isosorbide mononitrate 30 mg oral tablet, extended release 30 mg, 1, tablet, By Mouth, Daily in AM, for 90 days, # 90 tablet, Refills 3, Tot. Refills 3, Hard Stop 09/25/22 15:38:00 EST, 09/30/21 15:38:00 EST, Route to Pharmacy Electronically, [facility] #[id number], Partial fill upon patient request if t... Start Date: 09/30/21 Stop Date: 09/25/22 Status: Ordered KlonoPIN 1 mg oral tablet 1 tablet = 1 mg, By Mouth, 2 times a day, 0.5 mg midday, # 75 tablet, 4 Refills, Maintenance, 02/04/22 8:09:00 EDT, [facility] #[id number], 170, cm, 01/21/22 12:57:00 EDT, Height, 80.9, [...] 3 Refills, Maintenance, 09/13/22 16:21:00 EST, Tablet, [facility] #[id number], Partial fill upon patient request if the prescription is for a schedule II opioid dr... Start Date: 09/13/22 Stop Date: 09/08/23 Status: Ordered Metoprolol Tartrate 50 mg oral tablet 1.5 tablet = 75 mg, By Mouth, 2 times a day, for 90 days, Take 75 mg twice daily, # 270 tablet, 3 Refills, Hard Stop 09/13/22 16:21:00 EST, 09/18/21 16:21:00 EST, Tablet, [facility] #[id number],Partial fill upon patient request if the prescripti... Start Date: 09/18/21 Stop Date: 09/13/22 Status: Ordered nitroglycerin 0.4 mg sublingual tablet 1 tablet = 0.4 mg, Sublingual, Every 5 minutes, PRN as needed for chest pain, not to exceed 3 doses/15 min--if pain persists, seek medical attention, # 100 tablet, 3 Refills, Maintenance, 10/16/21 11:32:00 EST, Tablet, [facility] #[id number], Par... Start Date: 10/16/21 Stop Date: 02/13/22 Status: Ordered ondansetron 8 mg oral tablet, disintegrating 1 tablet = 8 mg, By Mouth, 3 times a day, PRN Nausea & Vomiting, # 30 tablet, 0 Refills, Maintenance, 12/26/20 12:55:00 EDT, [facility] #[id number], Partial fill upon patient request if the prescription is for a schedule II opioid drug., 170, cm,... Start Date: 12/26/20 Status: Ordered oxyCODONE 10 mg oral tablet = 10 mg, By Mouth, Every 8 hours, as needed; on a 15/month taper, # 60 tablet, 0 Refills, Maintenance, 03/24/21 11:54:00 EDT, Tablet, [facility] #[id number], Partial fill upon patient request ifthe prescription [...] capsule, 4 Refills, Maintenance, 02/04/22 8:06:00 EDT, [facility] #[id number], Partial fill upon patient request if the [...] Refills, Soft Stop, 04/20/22 10:54:00 EDT, Powder, [facility] #[id number], Partial fill upon patient... Start Date: 04/20/22 Status: Ordered spironolactone 25 mg oral tablet 25 mg, 1, tablet, By Mouth, Daily, # 90 tablet, Refills 3, Tot. Refills 3, Maintenance, 09/13/22 16:11:00 EST, Route to Pharmacy Electronically, [facility] #[id number], Partial fill upon patientrequest if the prescription is for a schedule II op... Start Date: 09/13/22 Stop Date: 09/08/23 Status: Ordered spironolactone 25 mg oral tablet 25 mg, 1, tablet, By Mouth, Daily, for 90 days, # 90 tablet, Refills 3, Tot. Refills 3, Hard Stop 09/13/22 16:11:00 EST, 09/18/21 16:11:00 EST, Route to Pharmacy Electronically, [facility] #[id number], Partial fill upon patient request if the pre... Start Date: 09/18/21 Stop Date: 09/13/22 Status: Ordered traZODone 150 mg oral tablet 1 tablet = 150 mg, By Mouth, Daily at bedtime, # 30 tablet, 4 Refills, Maintenance, 02/04/22 8:14:00 EDT, Tablet, [facility] #[id number], Partial fill upon patient request if the [...] Team Personnel Name: Agustín Faria MD Address: [address] [place] [address] [address] Agustín Faria MD [place], [place] [address]
--- OUTSIDE RECORDS SUMMARY | 2024-01-27 11:31 | XMS_ITS | Continuity of Care Document ---
Author Organization [facility] Address [address] [place] [address]- Care Team Providers Care Punch Machine Hand Name Role Phone Maranda WILCOX, Silvio Martinez Primary Care Physician Encounter [facility] Date(s): 05/10/20 - 06/09/20 [facility] [address] [place] [address]- [facility] Allergies, Adverse Reactions, Alerts Substance Reaction [...] mL, Refills 11, Tot. Refills 11, Maintenance, [facility]: [id number], 05/08/20 16:20:00 EDT, Supply, 169, cm, 04/15/20 [...] capsule, 1 Refills, Maintenance, 10/21/19 11:17:00 EST, [facility] #[id number], 1 capsule By Mouth 3 times a [...] 04/09/21 14:58:00 EDT, 04/09/20 14:57:00 EDT, Tablet, [facility] #[id number], 169, cm, 04/05/20 12:55:00 EDT, Height, 85, [...] tablet, 3 Refills, Maintenance, 05/28/20 11:56:00 EDT, [facility] #[id number], 170, cm, 05/27/20 0:11:00 EDT, Height,90.4, kg, [...] Acute 04/30/21 16:58:00 EDT, 04/30/20 16:57:00 EDT, [facility] #[id number], 169, cm, 04/15/20 17:38:00 EDT, Height, 85, kg, 03/15/20 2:33:00 EDT, Dry Weight Start Date: 04/30/20 Stop Date: 04/30/21 Status: Ordered methylprednisolone 2 gm injectable powder for injection See Instructions, inject 4 grams IM for adrenal crisis, # 48 Gm, 11 Refills, Acute 06/08/21 12:08:00 EDT, 05/03/21 10:04:00 EDT, [facility], 169, cm, 04/15/20 17:38:00 EDT, Height, 85, kg, 03/15/20 2:33:00 EDT, Dry Weight Start Date: 05/03/21 Stop Date: 06/08/21 Status: Ordered methylprednisolone 2 gm injectable powder for injection See Instructions, inject 4 grams IM for adrenal crisis, # 48 Gm, 3 Refills, Acute 05/03/21 10:04:00EDT, 05/03/20 10:03:00 EDT, [facility] #[id number], 169, cm, 04/15/20 17:38:00 EDT, Height, 85, kg, 03/15/20 2:33:00 EDT, Dry Weight Start Date: 05/03/20 Stop Date: 05/03/21 Status: Ordered methylprednisolone 2 gm injectable powder for injection See Instructions, inject 4 grams IM for adrenal crisis, # 48 Gm, 3 Refills, Acute 05/03/21 11:58:00EDT, 05/03/21 10:04:00 EDT, [facility], 169, cm, 04/15/20 17:38:00 EDT, [...] 11 Refills, Soft Stop, 05/03/20 16:07:00 EDT, [facility] #[id number], 169, cm, 04/15/20 17:38:00 EDT, Height, 85, [...] Refills, Maintenance, 12/05/19 20:49:00 EDT, DIS Tablet, [facility] #[id number], 170, cm, 12/05/19 19:19:00 EDT, Height, 88.7, [...]
--- OUTSIDE RECORDS SUMMARY | 2024-01-27 11:31 | XMS_ITS | Continuity of Care Document ---
Author Organization [facility] Address [address] [place] [address]- Care Team Providers Care Plaster Lather Name Role Phone Agustín Faria MD Primary Care Physician [phone] Encounter [facility] Date(s): 04/17/22 - 05/17/22 [facility] [address] [place], [place] [address] Attending Physician: Maximo Cano Admitting Physician: AdmtrMaximo [...] tablet, 0 Refills, Maintenance, 12/26/20 12:55:00 EDT, [facility] #[id number], Partial fill upon patient request if the [...] Refills, Soft Stop, 04/20/22 10:54:00 EDT, Powder, [facility] #[id number], Partial fill upon patient... Start Date: 04/20/22 [...] Team Personnel Name: Agustín Faria MD Address: [address] [place] [address] [address] Agustín Faria MD [place], [place] [address]
--- OUTSIDE RECORDS SUMMARY | 2024-01-27 11:31 | XMS_ITS | Continuity of Care Document ---
Author Organization [facility] Address [address] [place] [address]- Care Team Providers Care Early Head Start Director Name Role Phone Mariella OCAMPO, Amelia Primary Care Physician [phone] Encounter [facility] Date(s): 11/20/19 - 01/03/20 [facility] [address] [place] [address]- [facility] Attending Physician: Manda Tomas MD Referring Physician: Amelia Wolff NP Allergies, Adverse [...] Stop 02/18/20 11:16:00EDT, 10/21/19 11:16:00 EST, Tablet, [facility] #95533, 170, cm, 10/20/19 13:48:00 EST, Height, 92.3, kg, 10/15/19 6:38:00 EST, Dry Weight Start Date: 10/21/19 Stop Date: 02/18/20 Status: Ordered atorvastatin 20 mg oral tablet 1 tablet = 20 mg, By Mouth, Daily, # 90 tablet, 1 Refills, Maintenance, 10/21/19 11:16:00 EST, Tablet, [facility] #76940, 170, cm, 10/20/19 13:48:00 EST, Height, 92.3, [...] 02/21/19 8:58:39 EDT, Route to Pharmacy Electronically, [id number], [facility], [facility] 3 Start Date: 02/21/19 Stop Date: 04/22/19 Status: Ordered Creon 36,000 units oral delayed release capsule 1 capsule, By Mouth, 3 times a day, with each meal and snack, # 270 capsule, 1 Refills, Maintenance, 10/21/19 11:17:00 EST, [facility] #[id number], 1 capsule By Mouth 3 times a [...] 08/24/19 9:15:39 EST, Route to Pharmacy Electronically, [id number], [facility] #[id number], 170, cm, 08/24/19 8:38:44 EST, H... Start [...] 0 Refills, Maintenance, 09/28/19 0:43:00 EST, Tablet, [facility] #[id number], 171, cm, 09/27/19 22:45:00 EST, Height, 92.2, [...] 02/21/19 8:59:46 EDT, Route to Pharmacy Electronically, [id number], [facility], [facility] 3 Start Date: 02/21/19 Stop Date: 09/19/19 [...] Refills, Maintenance, 12/05/19 20:49:00 EDT, DIS Tablet, [facility] #[id number], 170, cm, 12/05/19 19:19:00 EDT, Height, 88.7, [...]
--- OUTSIDE RECORDS SUMMARY | 2024-01-27 11:31 | XMS_ITS | Continuity of Care Document ---
Author Organization [facility] Address [address] [place] [address]- Care Team Providers Care Child And Family Services Specialist Name Role Phone Bienvenido WILCOX, Agustín Joaquin Primary Care Physician [place] [facility] Date(s): 11/26/22 - 12/26/22 [facility] [address] [place] [id number] Attending Physician: AdmMaximo diaz Admitting Physician: AdmtrMaximo Referring Physician: Admtr, Ar8 Allergies, Adverse Reactions, Alerts Substance Reaction Severity Status propranolol Rash Active Zoloft tachycardia n/v Active Nardil Palpitations - rapid N&V - Nausea and vomiting C/O - a headache Active Inderal n/v,tachcardia Active Cefzil Hives Active Haldol Active Compazine severe anxiety Hives Active Lexapro n/v Active Xarelto rash Active Reglan severe anxiety~panic Active Immunizations Given [...] tablet, 3 Refills, Maintenance, 08/17/22 15:43:00 EST, [facility] #30075, 170, cm, 05/13/22 17:18:00 EDT, Height, 88.8, [...] tablet, 4 Refills, Maintenance, 11/11/22 15:10:00 EST, [facility] #73044, Partial fill upon patient request if the prescription is for a schedule II opioid drug., 170, cm, 05/13/22 17:18:00 ED... Start Date: 11/11/22 Stop Date: 04/10/23 Status: Ordered busPIRone 15 mg oral tablet 1 tablet = 15 mg, By Mouth, 2 times a day, # 60 tablet, 4 Refills, Maintenance, 11/11/22 15:11:00 EST, Tablet, [facility] #[id number], Partial fill upon patient request if the prescription is for a schedule II opioid drug., 170, cm, 05/13/22 17:1... Start Date: 11/11/22 Stop Date: 04/10/23 Status: Ordered famotidine 20 mg oral tablet 20 mg, 1, tablet, By Mouth, 2 times a day, # 180 tablet, Refills 0, Tot. Refills 0, Maintenance, 01/08/21 13:59:00 EDT, Route to Pharmacy Electronically, [facility] #[id number], Partial fill upon patient request if the prescription is for a sched... Start Date: 01/08/21 Status: Ordered Flonase 50 mcg/inh nasal spray 2 sprays, Nares, Both, 2 times a day, PRN Congestion, # 16 Gm, 0 Refills, Maintenance, 08/20/20 11:17:00 EST, [place], [facility] #42152, Partial fill upon patient request if the prescriptionis for a schedule II opioid drug., 170, cm, 2... Start Date: 08/20/20 Status: Ordered gabapentin 300 mg oral capsule 300 mg, 1, capsule, By Mouth, 2 times a day, # 60 capsule, Refills 4, Tot. Refills 4, Maintenance, 11/11/22 15:13:00 EST, Route to Pharmacy Electronically, [facility] #[id number], Partial fill upon patient request if the [...] 09/25/22 15:38:00 EST, Route to Pharmacy Electronically, [facility] #[id number], Partial fill upon patient request if the prescription is for a sched... Start Date: 09/25/22 Stop Date: 09/20/23 Status: Ordered KlonoPIN 1 mg oral tablet 1 tablet = 1 mg, By Mouth, 2 times a day, dose is BID, # 60 tablet, 4 Refills, Maintenance, 11/11/22 15:11:00 EST, [facility] #[id number], NO EARLY REFILLS, 170, cm, 05/13/22 17:18:00 [...] 3 Refills, Maintenance, 09/13/22 16:21:00 EST, Tablet, [facility] #46886, Partial fill upon patient request if the prescription is for a schedule II opioid dr... Start Date: 09/13/22 Stop Date: 09/08/23 Status: Ordered nitroglycerin 0.4 mg sublingual tablet 1 tablet, Sublingual, Every 5 minutes, PRN NEEDED FOR CHEST PAIN MAX 3 DOSES IN 15 MINUTES IF PAIN PERSISTS CALL 911, # 100 tablet, 3 Refills, Maintenance, 12/21/22 11:43:00 EDT, [facility] #49476, 170, cm, 05/13/22 17:18:00 EDT, Height,... Start Date: 12/21/22 Status: Ordered ondansetron 8 mg oral tablet, disintegrating 1 tablet = 8 mg, By Mouth, 3 times a day, PRN Nausea & Vomiting, # 30 tablet, 0 Refills, Maintenance, 12/26/20 12:55:00 EDT, [facility] #31810, Partial fill upon patient request if the prescription is for a schedule II opioid drug., 170, cm,... Start Date: 12/26/20 Status: Ordered oxyCODONE 10 mg oral tablet = 10 mg, By Mouth, Every 8 hours, as needed; on a 15/month taper, # 60 tablet, 0 Refills, Maintenance, 03/24/21 11:54:00 EDT, Tablet, [facility] #24327, Partial fill upon patient request ifthe prescription [...] capsule, 4 Refills, Maintenance, 11/11/22 15:17:00 EST, [facility] #21744, Partial fill upon patient request if the [...] 11/11/22 15:08:00 EST, Route to Pharmacy Electronically, [facility] #[id number], Partial fill upon patient request if the [...] Refills, Soft Stop, 04/20/22 10:54:00 EDT, Powder, [facility] #[id number], Partial fill upon patient... Start Date: 04/20/22 Status: Ordered spironolactone 25 mg oral tablet 25 mg, 1, tablet, By Mouth, Daily, # 90 tablet, Refills 3, Tot. Refills 3, Maintenance, 09/13/22 16:11:00 EST, Route to Pharmacy Electronically, [facility] #[id number], Partial fill upon patientrequest if the prescription is for a schedule II op... Start Date: 09/13/22 Stop Date: 09/08/23 Status: Ordered traZODone 150 mg oral tablet 2 tablet = 300 mg, By Mouth, Daily at bedtime, Ins will not cover 300mg, # 60 tablet, 4 Refills, Maintenance, 11/27/22 9:29:00 EST, Tablet, [facility] #[id number], Partial fill upon patient request if the prescription is for a schedule II opioid... Start Date: 11/27/22 Status: Ordered traZODone 300 mg oral tablet 1 tablet = 300 mg, By Mouth, Daily at bedtime, # 30 tablet, 4 Refills, Maintenance, 11/11/22 15:09:00 [id number], Partial fill upon patient request if the [...] Team Personnel Name: Daina Ibrahim RN Position: [facility] ED RN W/OE and Tasks Member Role: Primary Care Nurse Name: Madeline Baird RN Position: S ED RN W/OE and Tasks Member Role: Primary Care Nurse Name: Teresa Carpio Position: [facility] RN Member Role: Primary Care Nurse Name: Inge Elizabeth RN Position: [facility] SN RN Member Role: Primary Care Nurse Name: Kelley Prasad RN Position: [facility] RN Member Role: Primary Care Nurse Name: Cindy Medeiros RN Position: [facility] RN Member Role: Primary Care Nurse Name: Linnette De La O RN Position: [facility] GLOBAL ACCOUNT MANAGER No Tools Member Role: Primary Care Nurse Name: Alina Castillo NP Position: [facility] Associate Professional Member Role: Primary Care Nurse Address: Address: [address] [place] [address]- [place] Name: Mary Anne Kilpatrick RN Position: [facility] MR W/ Merge Member Role: Primary Care Nurse Name: Agustín Faria MD Position: [facility] Outreach Member Role: PCP Address: Address: [address] [facility] [address] [place] [address]- Name: Nicole Hernández RN Position: [facility] RN Member Role: Primary Care Nurse Name: Douglas Harris Position: [facility] Cardio/Pulm Mgr ([facility]) Member Role: Primary Care Nurse Name: Lindsay Srinivasan CNM Position: [facility] Medical Instrument Technician Member Role: Primary Care Nurse Address: Address: [address] [place] [address] [place] [address]- Name: Larissa Klein Position: [facility] RN Member Role: Primary Care Nurse Name: Karen Roa RN Position: [facility] ED RN W/OE and Tasks Member Role: Primary Care Nurse Name: Mary Alice Stevens RN Position: [facility] RN Member Role: Primary Care Nurse Name: Beverly Grey Position: [facility] RN Member Role: Primary Care Nurse Name: Alexy Geronimo RN Position: [facility] RN Member Role: Primary Care Nurse Name: Raúl Rudolph DO Position: [facility] FINAL DRESSING CUTTER MD Member Role: [employer] FINAL DRESSING CUTTER Physician Address: Address: [address] [facility] [place] [address]- [place] Name: Evelyn Haynes RN Position: [facility] RN Member Role: Primary Care Nurse Name: Crissy Metzger RN Position: [facility] RN Member Role: Primary Care Nurse Name: Elisa Gilbert RN Position: [facility] RN Member Role: Primary Care Nurse Name: Osmin RNCorina Position: [facility] PCO RN Member Role: Primary Care Nurse Name: Shawnee Lane RN Position: [facility] ED RN W/OE and Tasks Member Role: Primary Care Nurse Name: Erna Douglass RN Position: [facility] SN RN Member Role: Primary Care Nurse Name: Keyana Ndiaye RN Position: [facility] Leather Production Machine Operator Member Role: Primary Care Nurse Name: Yudy Trujillo RN Position: [facility] RN Member Role: Primary Care Nurse Name: Anabella Nicholson RN Position: [facility] AMB Nurse Member Role: Primary Care Nurse Name: Ramona Ybarra RN Position: [facility] RN Member Role: Primary Care Nurse Address: Address: [address] [place] [id number] Name: Nancy Gallagher RN Position: [facility] Leather Production Machine Operator Member Role: Primary Care Nurse Name: Evelyn Allen RN Position: [facility] OB RN Member Role: Primary Care Nurse Name: Jackelin Watt RN Position: [facility] RN Member Role: Primary Care Nurse Name: Raymundo Elizabeth RN Position: [facility] SN RN Member Role: Primary Care Nurse Name: Opal Calderon RN Position: [facility] RN Member Role: Primary Care Nurse Name: Yadiel Warner RN Position: [facility] SN RN Member Role: Primary Care Nurse Care Team Related Persons Name: BARTOLOME IBRAHIM Address: home [address] [place], [place] Name: GIANLUCA IBRAHIM Address: [address] [place], [place] Name: ABBIE IBRAHIM Address: [address] [place] [address] Name: SIM CERDA Name: DIANE CERDA Address: home [address] [place] [address] Name: SOLO CORRIGAN Address: [address] [place], [place] Name: SOLO FLORES Address: [address] [place] [address] Name: RAYMUNDO MAYFIELD Address: home [address] [place] [address]
--- OUTSIDE RECORDS SUMMARY | 2024-01-27 11:31 | XMS_ITS | Continuity of Care Document ---
Author Organization [facility] Address [address] [place] [address]- Care Team Providers Care Secondary Social Studies Teacher Name Role Phone Dash WILCOX ([place]), Paola Anderson Primary Care Physician Encounter [facility] Date(s): 03/22/23 - 05/13/[address] [address] Attending Physician: Thai OCAMPO, Vanesa Pathak Referring Physician: Bienvenido WILCOX, Agustín Joaquin Allergies, [...] tablet, 3 Refills, Maintenance, 08/17/22 15:43:00 EST, [facility] #[id number], 170, cm, 05/13/22 17:18:00 EDT, Height, 88.8, [...] 01/08/21 13:59:00 EDT, Route to Pharmacy Electronically, [facility] #[id number], Partial fill upon patient request if the prescription is for a sched... Start Date: 01/08/21 Status: Ordered famotidine 20 mg oral tablet 20 mg, 1, tablet, By Mouth, Daily at bedtime, # 30 tablet, Refills 0, Tot. Refills 0, Maintenance, 05/13/23 10:33:00 EDT, Route to Pharmacy Electronically, [facility] #[id number], Partial fill upon patient request if the prescription is for a jose... Start Date: 05/13/23 Stop Date: 06/12/23 Status: Ordered Flonase 50 mcg/inh nasal spray 2 sprays, Nares, Both, 2 times a day, PRN Congestion, # 16 Gm, 0 Refills, Maintenance, 08/20/20 11:17:00 EST, [place], [facility] #[id number], Partial fill upon patient request if the prescriptionis for a schedule II opioid drug., 170, cm, ... Start Date: 08/20/20 Status: Ordered gabapentin 300 mg oral capsule 300 mg, 1, capsule, By Mouth, 2 times a day, # 60 capsule, Refills 4, Tot. Refills 4, Maintenance, 11/11/22 15:13:00 EST, Route to Pharmacy Electronically, [facility] #[id number], Partial fill upon patient request if the [...] 0 Refills, Maintenance, 05/13/23 10:33:00 EDT, Tablet, [facility] #[id number], Partial fill upon patient request if the prescription is for a schedule II opioid drug., 1... Start Date: 05/13/23 Stop Date: 05/16/23 Status: Ordered prazosin 2 mg oral capsule 2 capsule = 4 mg, By Mouth, Daily at bedtime, if PO intake is low or BP low below 110/70 only take one cap, # 60 capsule, 4 Refills, Maintenance, 11/11/22 15:17:00 EST, [facility] #[id number], Partial fill upon patient request if the [...] 03/10/23 15:36:00 EDT, Route to Pharmacy Electronically, [facility][id number], Partial fill upon patient request if the [...] Refills, Soft Stop, 04/20/22 10:54:00 EDT, Powder, [facility] #[id number], Partial fill upon patient... Start Date: 04/20/22 [...] information Care Team Personnel Name: Dash WILCOX ([place]) , Paola Anderson Position: [facility] Outreach Member Role: PCP Address: Address: [address] [place] [phone] Name: Daina Ibrahim RN Position: [facility] ED RN W/OE and Tasks Member Role: Primary Care Nurse Name: Madeline Baird RN Position: [facility] ED RN W/OE and Tasks Member Role: Primary Care Nurse Name: Teresa Carpio Position: [facility] RN Member Role: Primary Care Nurse Name: Inge Elizabeth RN Position: [facility] SN RN Member Role: Primary Care Nurse Name: Kelley Prasad RN Position: [facility] RN Member Role: Primary Care Nurse Name: Cindy Medeiros RN Position: [facility] RN Member Role: Primary Care Nurse Name: Linnette De La O RN Position: [facility] PLANNING ENGINEER Member Role: Primary Care Nurse Name: Alina Castillo NP Position: [facility] Associate Professional Member Role: Primary Care Nurse Address: Address: [address] [facility] [place] [address]- [place] Name: Mary Anne Kilpatrick RN Position: [facility] MR W/ Merge Member Role: Primary Care Nurse Name: Nicole Hernández RN Position: [facility] RN Member Role: Primary Care Nurse Name: Douglas Harris Position: [facility] Cardio/Pulm Mgr ([facility]) Member Role: Primary Care Nurse Name: Lindsay Srinivasan CNM Position: [facility] Retail Attendant Member Role: Primary Care Nurse Address: Address: [address] [place] [address] [place] [address]- [place] Name: Larissa Olson [place] Position: [facility] RN Member Role: Primary Care Nurse Name: Karen Roa RN Position: [facility] ED RN W/OE and Tasks Member Role: Primary Care Nurse Name: aMry Alice Stevens RN Position: [facility] RN Member Role: Primary Care Nurse Name: Beverly Grey Position: [facility] RN Member Role: Primary Care Nurse Name: Alexy Geronimo RN Position: [facility] RN Member Role: Primary Care Nurse Name: Raúl Rudolph DO Position: [facility] CANCER GENETICS ASSISTANT MD Member Role: [employer] CANCER GENETICS ASSISTANT Physician Address: Address: [address] [place] [address] [place] [address]- [place] Name: Evelyn Haynes RN Position: [facility] RN Member Role: Primary Care Nurse Name: Crissy Metzger RN Position: [facility] RN Member Role: Primary Care Nurse Name: Elisa Gilbert RN Position: [facility] RN Member Role: Primary Care Nurse Name: Corina Solorio RN Position: [facility] AMB Nurse Member Role: Primary Care Nurse Name: Shawnee Lane RN Position: [facility] ED RN W/OE and Tasks Member Role: Primary Care Nurse Name: Erna Douglass RN Position: [facility] SN RN Member Role: Primary Care Nurse Name: Keyana Ndiaye RN Position: [facility] Hospital Mail Delivery Supervisor Member Role: Primary Care Nurse Name: Anabella Nicholson RN Position: [facility] AMB Nurse Member Role: Primary Care Nurse Name: Brenda Tomas RN Position: [facility] Outreach Member Role: Primary Care Nurse Name: Ramona Ybarra RN Position: [facility] RN Member Role: Primary Care Nurse Address: Address: [address] [place] [address]- Name: Elliott RN, Nnacy Joaquin Position: [facility] Hospital Mail Delivery Supervisor Member Role: Primary Care Nurse Name: Evelyn Allen RN Position: [facility] OB RN Member Role: Primary Care Nurse Name: Jackelin Watt RN Position: [facility] RN Member Role: Primary Care Nurse Name: Raymundo Elizabeth RN Position: [facility] SN RN Member Role: Primary Care Nurse Name: Opal Calderon RN Position: [facility] RN Member Role: Primary Care Nurse Name: Timmy RNYadiel Position: [facility] SN RN Member Role: Primary Care Nurse Care Team Related Persons Name: BARTOLOME IBRAHIM Address: [address] [place] [address] Name: GIANLUCA IBRAHIM Address: [address] [place], [place] Name: ABBIE IBRAHIM Address: [address] [place] [address] Name: SIM CERDA Name: DIANE CERDA Address: [address] [place] [address] Name: SOLO CORRIGAN Address: [address] [place] [address] Name: SOLO FLORES Address: [address] [place] [address] Name: RAYMUNDO MAYFIELD Address: [address] [place] [address]
--- OUTSIDE RECORDS SUMMARY | 2024-01-27 11:31 | XMS_ITS | Continuity of Care Document ---
Author Organization [facility] Address [address] [place] [address]- Care Team Providers Care Surgical Services Director Name Role Phone Mariella OCAMPO, Amelia Primary Care Physician [phone] Encounter [facility] NBR [id number] Date(s): 01/18/20 - 01/25/[address] [address]- [facility] Attending Physician: Amos Appiah MD Referring Physician: Amelia Wolff NP Allergies, [...] 0 Refills, Maintenance, 09/02/16 14:40:22 Start Date: 12/14/16 Status: Ordered aspirin 81 mg oral tablet 1 tablet = 81 mg, By Mouth, Daily, for 30 days, # 30 tablet, 3 Refills, Hard Stop 02/18/20 11:16:00EDT, 10/21/19 11:16:00 EST, Tablet, [facility] #[id number], 170, cm, 10/20/19 13:48:00 EST, Height, 92.3, kg, 10/15/19 6:38:00 EST, Dry Weight Start Date: 10/21/19 Stop Date: 02/18/20 Status: Ordered atorvastatin 20 mg oral tablet 1 tablet = 20 mg, By Mouth, Daily, # 90 tablet, 1 Refills, Maintenance, 10/21/19 11:16:00 EST, Tablet, [facility] #[id number], 170, cm, 10/20/19 13:48:00 EST, Height, 92.3, [...] 02/21/19 8:58:39 EDT, Route to Pharmacy Electronically, [id number], [facility] 3 Start Date: 02/21/19 Stop Date: 04/22/19 Status: Ordered Creon 36,000 units oral delayed release capsule 1 capsule, By Mouth, 3 times a day, with each meal and snack, # 270 capsule, 1 Refills, Maintenance, 10/21/19 11:17:00 EST, [facility] #[id number], 1 capsule By Mouth 3 times a [...] 02/21/19 8:59:46 EDT, Route to Pharmacy Electronically, [id number], [facility] 3 Start Date: 02/21/19 Stop Date: [...] Refills, Maintenance, 12/05/19 20:49:00 EDT, DIS Tablet, [facility] #[id number], 170, cm, 12/05/19 19:19:00 EDT, Height, 88.7, [...]
--- OUTSIDE RECORDS SUMMARY | 2024-01-27 11:31 | XMS_ITS | Continuity of Care Document ---
Author Organization [facility] Address [address] [place] [address]- Care Team Providers Care Medical Assistant Secretary Name Role Phone Dash WILCOX (ID), Paola Anderson Primary Care Physician [id number] Date(s): 08/05/23 - 08/05/[address] [address]- Discharge Disposition: A-D/C Home Attending Physician: Gurmeet Gross MD Admitting Physician: Gurmeet Gross MD Referring Physician: Not on Staff, Referring MD Allergies, Adverse Reactions, Alerts Substance Reaction Severity Status propranolol Rash Active droperidol-fentanyl 1 Active Reglan severe anxiety~panic Active Lexapro n/v Active Xarelto rash Active Zoloft tachycardia n/v Active Nardil Palpitations - rapid N&V - Nausea and vomiting C/O - a headache Active Inderal n/v,tachcardia Active Cefzil Hives Active Haldol Active Compazine severe anxiety Hives Active 1Only allergic to droperidol NOT fentanyl. [...] Other : Medications (Vitamin D3) Cholecalciferol 400 SKILLED NURSING units/mL oral syringe 1 mL = 10 [...] tablet, 3 Refills, Maintenance, 08/17/22 15:43:00 EST, [facility] #[id number], 170, cm, 05/13/22 17:18:00 EDT, Height, 88.8, kg, 05/13/22 17:18:00 EDT, Dry Weight Start Date: 08/17/22 Status: Ordered Ativan 1 mg oral tablet 1 tablet = 1 mg, By Mouth, 3 times a day, PRN for anxiety, # 11 tablet, 0 Refills, Maintenance, 07/15/23 11:42:00 EDT, Tablet, [facility] #[id number], Partial fill upon patient request if the [...] opioid drug. Start Date: 05/10/23 Status: Ordered Dilaudid Inj 1 mg, Injection, IV Push Slowly, Once, PRN for Pain , Severe, Routine, 08/05/23 7:52:00 EST Start Date: 08/05/23 Stop Date: 08/05/23 Status: Completed famotidine 20 mg oral tablet 20 mg, 1, tablet, By Mouth, 2 times a day, # 180 tablet, Refills 0, Tot. Refills 0, Maintenance, 01/08/21 13:59:00 EDT, Route to Pharmacy Electronically, [facility] #[id number], Partial fill upon patient request if the prescription is for a sched... Start Date: 01/08/21 Status: Ordered Flonase 50 mcg/inh nasal spray 2 sprays, Nares, Both, 2 times a day, PRN Congestion, # 16 Gm, 0 Refills, Maintenance, 08/20/20 11:17:00 EST, [place], [facility] #[id number], Partial fill upon patient request if the prescriptionis for a schedule II opioid drug., 170, cm, ... Start Date: 08/20/20 Status: Ordered gabapentin 300 mg oral capsule See Instructions, 1 cap in the AM, 2 in the afternoon and 2 at bedtime, # 1 each, Refills 4, Tot. Refills 4, Maintenance, 11/11/22 15:13:00 EST, Instructions Replace Required Details, Route to Pharmacy Electronically, [facility] #[id number], Part... Start Date: 11/11/22 Status: Ordered Insulin [...] drug. Start Date: 05/10/23 Status: Ordered LORazepam 0.5 mg oral tablet 1 tablet = 0.5 mg, By Mouth, 2 times a day, PRN as needed for anxiety, for 7 days, # 7 tablet, 0 Refills, Acute 08/12/23 8:24:00 EST, 08/05/23 8:24:00 EST, Tablet, [facility] #[id number], Partial fill upon patient request if the prescription is f... Start Date: 08/05/23 Stop Date: 08/12/23 Status: Ordered Melatonin See Instructions, 0 Refills, Maintenance, 03/22/23 3:39:00 EDT, Partial fill upon patient request if the prescription is for a schedule II opioid drug. Start Date: 03/22/23 Status: Ordered metoprolol 100 mg oral tablet 100 mg, 1, tablet, By Mouth, 2 times a day, # 60 tablet, Refills 3, Tot. Refills 3, Maintenance, 05/14/23 20:59:00 EDT, Route to Pharmacy Electronically, [facility] #[id number], Partial fill upon patient request if the [...] 0 Refills, Maintenance, 05/13/23 10:33:00 EDT, Tablet, [facility] #[id number], Partial fill upon patient request if the prescription is for a schedule II opioid drug., 1... Start Date: 05/13/23 Stop Date: 05/16/23 Status: Ordered oxyCODONE 5 mg oral tablet 5 mg, 1, tablet, By Mouth, Every 6 hours, PRN, for 3 days, # 10 tablet, Refills 0, Tot. Refills 0, Acute 08/08/23 8:24:00 EST, as needed for pain, 08/05/23 8:24:00 EST, Route to Pharmacy Electronically, [facility] #[id number], Partial fill upon p... Start Date: 08/05/23 Stop Date: 08/08/23 Status: Ordered prazosin 2 mg oral capsule 2 capsule = 4 mg, By Mouth, Daily at bedtime, if PO intake is low or BP low below 110/70 only take one cap, # 60 capsule, 4 Refills, Maintenance, 11/11/22 15:17:00 EST, [facility] #[id number], Partial fill upon patient request if the [...] 03/10/23 15:36:00 EDT, Route to Pharmacy Electronically, [facility] #[id number], Partial fill upon patient request if the [...] Refills, Soft Stop, 05/27/23 14:16:00 EDT, Powder, [facility] #[id number], Partial fill upon patient... Start Date: 05/27/23 Status: Ordered spironolactone 25 mg oral tablet 25 mg, 1, tablet, By Mouth, Daily, # 30 tablet, Refills 3, Tot. Refills 3, Maintenance, 05/14/23 20:55:00 EDT, Route to Pharmacy Electronically, [facility] #[id number], Partial fill upon patientrequest if the prescription [...] Range]: 1 2 3 Height 170 cm (08/05/23 3:21 AM) Weight 98 kg (08/05/23 3:21 AM) Oxygen Saturation [94-100 %] 97 % (08/05/23 8:49 AM) 98 % (08/05/23 5:15 AM) 96 % (08/05/23 3:15 AM) Pulse Rate [55-90 bpm] 105 bpm *H* (08/05/23 8:49 AM) 76 bpm (08/05/23 5:15 AM) 86 bpm (08/05/23 3:15 AM) Blood Pressure [90-138/55-84 mm Hg] 137/74mm Hg (08/05/23 8:49 AM) 123/74mm Hg (08/05/23 8:06 AM) 131/64mm Hg (08/05/23 5:15 AM) Respiratory Rate [16-30 br/min] 16 br/min (08/05/23 8:49 AM) 16 br/min (08/05/23 8:35 AM) 16 br/min (08/05/23 8:05 AM) Temperature [96.8-100.4 DegF] 98.1 DegF (08/05/23 8:49 AM) 98.1 DegF (08/05/23 3:15 AM) Mode of Delivery (Oxygen) Room air (08/05/23 8:49 AM) Room air (08/05/23 5:15 AM) Room air (08/05/23 3:15 AM) Blood pressure sites Arm, left (08/05/23 8:49 AM) Arm, right (08/05/23 5:15 AM) Arm, left (08/05/23 3:15 AM) Temperature Route Oral (08/05/23 8:49 AM) Oral (08/05/23 3:15 AM) Dry Weight 98 kg (08/05/23 3:21 AM) Weight Obtained Via Patient/family state d (08/05/23 3:21 AM) Dry Weight Obtained Via Patient/family s tated (08/05/23 3:21 AM) Social History Social History Type Response [...] Display: ECG 12-Lead Authored Date: Ventricular Rate: 85 BPM Atrial Rate: 85 BPM P-R Interval: 130 ms QRS Duration: 70 ms Q-T Interval: 396 ms QTC Calculation(Bazett): 471 ms R Tina: 166 degrees T Tina: 146 degrees Suspect arm lead reversal, interpretation assumes no reversal Normal sinus rhythm Nonspecific ST abnormality Abnormal ECG When compared with ECG of 15-JUL-2023 10:01, Limb leads are now reversed Confirmed by LALITA WILLARD MD ([id number]) on 08/05/2023 8:09:00 PM Hepzibah: LALITA WILLARD MD Note * Gurmeet Gross MD: PERFORM Event Display: Patient Education Leaflets Authored Date: [id number] Chronic Pain ?? [id number] Chronic Pain Pain??serves an important role. It lets you know something is wrong that needs your attention. Whenthe body heals, pain normally goes away. When pain lasts longer than 3 months, it's called chronic pain. This is pain that's present even after the body has healed.??Chronic pain can cause mood problems and get in the way of your relationships and your daily life. A number of conditions can cause chronic pain. Some of the more common causes include: ??? Previous surgery ??? An old injury ??? Infection ??? Diseases such as diabetes ??? Nerve damage??? Back injury ??? Arthritis ??? Migraine or other headaches ??? Fibromyalgia ??? Cancer Depression and stress can make chronic pain symptoms worse.??In some cases, a cause for the pain can't be found.?? Treatment Treatment??can??greatly reduce??pain.??In many cases,??pain can become less severe, occur less often, and interfere less with your daily life.??Chronic pain is often treated with a combination of medicines,??therapies, and lifestyle changes. You will work closely with your healthcare provider to find a treatment plan that works best for you. ??? Ask your healthcare provider for a referral to a pain management specialty center. These can provide the most recent and proven pain management strategies, along with emotional support and comprehensive services. ??? Several different types of medicines may be prescribed for chronic pain. Work with your healthcare provider to develop a medicine planthat helps manage your pain. ??? Physical therapy can help reduce certain types of chronic pain. ??? Occupational therapy teaches you how to do routine tasks of daily living in ways that lessen your discomfort. ??? Counseling can help you??cope better with stress and pain. ??? Other therapies such as meditation, yoga, biofeedback, massage, and acupuncture can also help manage chronic pain. ??? Anne nging certain habits can help reduce chronic pain: o Eat healthy o Develop an exercise routine o Get enough sleep?? o Stop smoking and limit alcohol use o Lose excess weight ?? Follow-up care Follow up with your??healthcare provider as advised. Let your??healthcare provider??know if your current treatment plan is working or if changes are needed. ?? To learn more For more information, contact: ??? [place] [employer] Association at americanheadachesociety.org or 211-554-1234 ??? [place] Chronic [employer] Association at theacpa.org or 480-097-0780 ?? Last Reviewed Date: 2022 ?? [employer]. All rights reserved. This information is not intended as a substitute for professional medical care. Always follow your healthcare professional's instructions. ?? Patient Care team information Care Team Personnel Name: Dash WILCOX (ID) , Paola Anderson Position: [facility] Outreach Member Role: PCP Address: Address: [address] [place] [id number] [place] Name: Daina Ibrahim RN Position: [facility] ED RN W/OE and Tasks Member Role: Primary Care Nurse Name: Madeline Baird RN Position: [facility] ED RN [...] La O RN Position: [facility] BAG VALVER Member Role: Primary Care Nurse Name: Alina Castillo NP Position: [facility] Associate Professional Member Role: Primary Care Nurse Address: Address: [address] [place] [address]- Name: Mary Anne Kilpatrick RN Position: [facility] MR W/ Merge Member Role: Primary Care Nurse Name: Nicole Hernández RN Position: [facility] RN Member Role: Primary Care Nurse Name: Lindsay Srinivasan CNM Position: [facility] Greens Tier Member Role: Primary Care Nurse Address: Address: [address] [place], [place] [address] [address]- [place] Name: Larissa Olson [place] Position: [facility] RN Member Role: Primary Care Nurse Name: Karen Roa RN Position: [facility] ED RN W/OE and Tasks Member Role: Primary Care Nurse Name: Mary Alice Stevens RN Position: [facility] RN Member Role: Primary Care Nurse Name: Beverly Grey Position: [facility] RN Member Role: Primary Care Nurse Name: Alexy Geronimo RN Position: [facility] RN Member Role: Primary Care Nurse Name: Raúl Rudolph DO Position: [facility] BOAT ASSEMBLER MD Member Role: [employer] BOAT ASSEMBLER Physician Address: Address: [address] [facility] [employer] Programmer [place] [address]- [place] Name: Evelyn Haynes RN Position: [facility] RN Member Role: Primary Care Nurse Name: Crissy Metzger RN Position: [facility] RN Member Role: Primary Care Nurse Name: Elisa Gilbert RN Position: [facility] RN Member Role: Primary Care Nurse Name: Corina Solorio RN Position: [facility] SN RN Member Role: Primary Care Nurse Name: Shawnee Lane RN Position: [facility] ED RN W/OE and Tasks Member Role: Primary Care Nurse Name: Erna Douglass RN Position: [facility] SN RN Member Role: Primary Care Nurse Name: Keyana Ndiaye RN Position: [facility] Orthopedic Shoe Maker Member Role: Primary Care Nurse Name: Anabella Nicholson RN Position: [facility] AMB Nurse Member Role: Primary Care Nurse Name: Brenda Tomas RN Position: [facility] Outreach Member Role: Primary Care Nurse Name: Ramona Ybarra RN Position: [facility] RN Member Role: Primary Care Nurse Address: Address: [address] [place] [address]- [place] Name: Nancy Gallagher RN Position: [facility] Orthopedic Shoe Maker Member Role: Primary Care Nurse Name: Evelyn [...] RN Member Role: Primary Care Nurse Name: Adrienne Alfred RN Position: [facility] ED RN W/OE and Tasks Member Role: Patient Care Provider Name: Gurmeet Gross MD Position: [facility] ED Medicine MD Member Role: Admitting Physician Address: Address: [address] [facility] [place] [address]- [place] Name: Luke Brand RN Position: [facility] ED RN W/OE and Tasks Member Role: Patient Care Provider Name: Kenneth Baker DO Position: [facility] ED Medicine MD Member Role: ED Attending Physician Address: Address: [address] [place] [address] [place] [address]- Care Team Related Persons Name: PATRICE BARTOLOME Address: home [address] [place], [place] Name: GIANLUCA IBRAHIM Address: [address] Name: ABBIE IBRAHIM Address: home [address] [place], [place] Name: SIM CERDA Name: DIANE CERDA Address: [address] [address] Name: SOLO CORRIGAN Address: home [address] [place] [address] Name: SOLO FLORES Address: home [address] [place] [address] Name: RAYMUNDO MAYFIELD Address: home [address] [place] [address]
--- OUTSIDE RECORDS SUMMARY | 2024-01-27 11:31 | XMS_ITS | Continuity of Care Document ---
Author Organization [facility] Address [address] [place] [address]- Care Team Providers Care Prefabricator Name Role Phone Silvio Low MD Primary Care Physician Encounter [facility] Date(s): 07/09/20 - 07/10/[address] [address]- [facility] Discharge Disposition: A-D/C Home Attending Physician: Jesús Mc MD Admitting Physician: Jesús Mc MD Referring Physician: Not on Staff, Referring [...] mL, Refills 11, Tot. Refills 11, Maintenance, [facility]: [id number], 05/08/20 16:20:00 EDT, Supply, 169, cm, 04/15/20 [...] capsule, 1 Refills, Maintenance, 10/21/19 11:17:00 EST, [facility] #[id number], 1 capsule By Mouth 3 times a [...] 04/09/21 14:58:00 EDT, 04/09/20 14:57:00 EDT, Tablet, [facility] #[id number], 169, cm, 04/05/20 12:55:00 EDT, Height, 85, [...] tablet, 3 Refills, Maintenance, 05/28/20 11:56:00 EDT, [facility] #[id number], 170, cm, 05/27/20 0:11:00 EDT, Height,90.4, kg, [...] Acute 04/30/21 16:58:00 EDT, 04/30/20 16:57:00 EDT, [facility] #[id number], 169, cm, 04/15/20 17:38:00 EDT, Height, 85, kg, 03/15/20 2:33:00 EDT, Dry Weight Start Date: 04/30/20 Stop Date: 04/30/21 Status: Ordered methylprednisolone 2 gm injectable powder for injection See Instructions, inject 4 grams IM for adrenal crisis, # 48 Gm, 11 Refills, Acute 06/08/21 12:08:00 EDT, 05/03/21 10:04:00 EDT, [facility]/pharmacy #[id number], 169, cm, 04/15/20 17:38:00 EDT, Height, 85, kg, 03/15/20 2:33:00 EDT, Dry Weight Start Date: 05/03/21 Stop Date: 06/08/21 Status: Ordered methylprednisolone 2 gm injectable powder for injection See Instructions, inject 4 grams IM for adrenal crisis, # 48 Gm, 3 Refills, Acute 05/03/21 10:04:00EDT, 05/03/20 10:03:00 EDT, [facility] #[id number], 169, cm, 04/15/20 17:38:00 EDT, Height, 85, kg, 03/15/20 2:33:00 EDT, Dry Weight Start Date: 05/03/20 Stop Date: 05/03/21 Status: Ordered methylprednisolone 2 gm injectable powder for injection See Instructions, inject 4 grams IM for adrenal crisis, # 48 Gm, 3 Refills, Acute 05/03/21 11:58:00EDT, 05/03/21 10:04:00 EDT, [facility], 169, cm, 04/15/20 17:38:00 EDT, [...] 0 Refills, Maintenance, 06/18/20 16:48:00 EDT, Tablet, [facility] #[id number], 170, cm, 06/18/20 15:14:00 EDT, Height, 90.4, kg, 06/18/20 15:14:00 EDT, Dry Weight Start Date: 06/18/20 Stop Date: 06/25/20 Status: Ordered ondansetron 4 mg oral tablet, disintegrating 1 tablet = 4 mg, By Mouth, Every 8 hours, PRN Nausea & Vomiting, for 3 days, # 30 tablet, 0 Refills, Acute 07/13/20 5:59:00 EDT, 07/10/20 5:59:00 EDT, Tablet, [facility] #[id number], 170, cm, 07/10/20 2:42:00 EDT, Height, 90.5, kg, 07/09/20 23:20... Start Date: 07/10/20 Stop Date: 07/13/20 Status: Ordered Polymyxin B Ophthalmic See Instructions, 0 Refills, Maintenance, 03/08/20 20:05:00 EDT Start Date: 03/08/20 Status: Ordered Senna = 8.5 mg, By Mouth, 2 times a day, 0 Refills, Maintenance, 11/06/16 11:22:55 Start Date: 11/06/16 Status: Ordered Solu-CORTEF 100 mg preservative-free injection = 100 mg, Intramuscular, Once, prn adrenal crisis, # 5 each, 11 Refills, Soft Stop, 07/10/20 6:01:00 EDT, [facility] #[id number], 170, cm, 07/10/20 2:42:00 EDT, Height, 90.5, kg, 07/09/20 23:20:00 EDT, Dry Weight Start Date: 07/10/20 Status: Ordered Solu-CORTEF 100 mg preservative-free injection = 100 mg, Intramuscular, Once, prn adrenal crisis, # 5 each, 11 Refills, Soft Stop, 05/03/20 16:07:00 EDT, [facility] #[id number], 169, cm, 04/15/20 17:38:00 EDT, Height, 85, [...] Refills, Maintenance, 12/05/19 20:49:00 EDT, DIS Tablet, [facility] #[id number], 170, cm, 12/05/19 19:19:00 EDT, Height, 88.7, kg, 12/05/19 19:19:00 EDT, Dry Weight Start Date: 3/17/20 Status: Ordered Problem List Condition Effective Dates [...] Range]: 1 2 3 Height 170 cm (07/10/20 6:11 AM) 170 cm (07/10/20 2:42 AM) 170 cm (07/09/20 11:20 PM) Weight 90.5 kg (07/09/20 11:20 PM) Oxygen Saturation [94-100 %] 98 % (07/10/20 6:11 AM) 98 % (07/10/20 2:42 AM) 96 % (07/09/20 11:20 PM) Pulse Rate [55-90 bpm] 63 bpm (07/10/20 6:11 AM) 66 bpm (07/10/20 2:42 AM) 87 bpm (07/09/20 11:20 PM) Blood Pressure [90-138/55-84 mm Hg] 113/72mm Hg (07/10/20 6:11 AM) 117/83mm Hg (07/10/20 2:42 AM) 132/77mm Hg (07/09/20 11:20 PM) Respiratory Rate [16-30 br/min] 18 br/min (07/10/20 6:11 AM) 16 br/min (07/10/20 3:44 AM) 11 br/min *L* (07/10/20 2:42 AM) Temperature [96.8-100.4 DegF] 97.8 DegF (07/10/20 6:11 AM) 97.7 DegF (07/10/20 2:42 AM) 98.3 DegF (07/09/20 11:20 PM) Mode of Delivery (Oxygen) Room air (07/10/20 6:11 AM) Room air (07/10/20 2:42 AM) Room air (07/09/20 11:20 PM) Blood pressure sites Arm, left (07/10/20 6:11 AM) Arm, left (07/10/20 2:42 AM) Arm, left (07/09/20 11:20 PM) Temperature Route Oral (07/10/20 6:11 AM) Oral (07/10/20 2:42 AM) Oral (07/09/20 11:20 PM) Dry Weight 90.5 kg (07/09/20 11:20 PM) Weight Obtained Via Standing scale (07/09/20 11:20 PM) Social History Social History Type Response Smoking Status 10 or more cigarette s (1/2 pack or more)/day in last 30 days entered on: 08/06/19 Sex
--- OUTSIDE RECORDS SUMMARY | 2024-01-27 11:32 | XMS_ITS | Continuity of Care Document ---
Author Organization [facility] Address [address] [place] [address]- Care Team Providers Care Farm Operations Technical Director Name Role Phone Maranda WILCOX, Silvio Martinez Primary Care Physician Encounter [facility] Date(s): 08/09/20 - 09/08/20 [facility] [place] [address]- Allergies, Adverse Reactions, Alerts Substance Reaction Severity [...] mL, Refills 11, Tot. Refills 11, Maintenance, [facility]: [id number], 05/08/20 16:20:00 EDT, Supply, 169, cm, 04/15/20 [...] Refills, Maintenance, 10/21/19 11:17:00 [facility], [facility] #[id number], 1 capsule By Mouth 3 times a [...] 04/09/21 14:58:00 EDT, 04/09/20 14:57:00 EDT, Tablet, [facility] #[id number], 169, cm, 04/05/20 12:55:00 EDT, Height, 85, [...] tablet, 3 Refills, Maintenance, 05/28/20 11:56:00 EDT, [facility] #[id number], 170, cm, 05/27/20 0:11:00 EDT, Height,90.4, kg, [...] Acute 04/30/21 16:58:00 EDT, 04/30/20 16:57:00 EDT, [facility] #[id number], 169, cm, 04/15/20 17:38:00 EDT, Height, 85, kg, 03/15/20 2:33:00 EDT, Dry Weight Start Date: 04/30/20 Stop Date: 04/30/21 Status: Ordered methylprednisolone 2 gm injectable powder for injection See Instructions, inject 4 grams IM for adrenal crisis, # 48 Gm, 11 Refills, Acute 06/08/21 12:08:00 EDT, 05/03/21 10:04:00 EDT, [facility]/pharmacy #[id number], 169, cm, 04/15/20 17:38:00 EDT, Height, 85, kg, 03/15/20 2:33:00 EDT, Dry Weight Start Date: 05/03/21 Stop Date: 06/08/21 Status: Ordered methylprednisolone 2 gm injectable powder for injection See Instructions, inject 4 grams IM for adrenal crisis, # 48 Gm, 3 Refills, Acute 05/03/21 10:04:00EDT, 05/03/20 10:03:00 EDT, [facility] #[id number], 169, cm, 04/15/20 17:38:00 EDT, Height, 85, kg, 03/15/20 2:33:00 EDT, Dry Weight Start Date: 05/03/20 Stop Date: 05/03/21 Status: Ordered methylprednisolone 2 gm injectable powder for injection See Instructions, inject 4 grams IM for adrenal crisis, # 48 Gm, 3 Refills, Acute 05/03/21 11:58:00EDT, 05/03/21 10:04:00 EDT, [facility], 169, cm, 04/15/20 17:38:00 EDT, [...] 0 Refills, Maintenance, 06/18/20 16:48:00 EDT, Tablet, [facility] #[id number], 170, cm, 06/18/20 15:14:00 EDT, Height, 90.4, [...] 11 Refills, Soft Stop, 07/10/20 6:01:00 EDT, [facility] #[id number], 170, cm, 07/10/20 2:42:00 EDT, Height, 90.5, kg, 07/09/20 23:20:00 EDT, Dry Weight Start Date: 07/10/20 Status: Ordered Solu-CORTEF 100 mg preservative-free injection = 100 mg, Intramuscular, Once, prn adrenal crisis, # 5 each, 11 Refills, Soft Stop, 05/03/20 16:07:00 EDT, [facility] #[id number], 169, cm, 04/15/20 17:38:00 EDT, Height, 85, [...] Refills, Maintenance, 12/05/19 20:49:00 EDT, DIS Tablet, [facility] #[id number], 170, cm, 12/05/19 19:19:00 EDT, Height, 88.7, [...]
--- OUTSIDE RECORDS SUMMARY | 2024-01-27 11:32 | XMS_ITS | Continuity of Care Document ---
Author Organization [facility] Address [address] [place] [address]- Care Team Providers Care Nurse Informatics Educator Name Role Phone Mariella OCAMPO, Amelia Primary Care Physician Encounter [facility] Date(s): 10/10/19 - 12/20/19 [facility] [address] [place] [address]- [facility] Attending Physician: Manda Tomas MD Allergies, Adverse Reactions, Alerts Substance Reaction [...] Stop 02/18/20 11:16:00EDT, 10/21/19 11:16:00 EST, Tablet, [facility] #[id number], 170, cm, 10/20/19 13:48:00 EST, Height, 92.3, kg, 10/15/19 6:38:00 EST, Dry Weight Start Date: 10/21/19 Stop Date: 02/18/20 Status: Ordered atorvastatin 20 mg oral tablet 1 tablet = 20 mg, By Mouth, Daily, # 90 tablet, 1 Refills, Maintenance, 10/21/19 11:16:00 EST, Tablet, [facility] #[id number], 170, cm, 10/20/19 13:48:00 EST, Height, 92.3, [...] 02/21/19 8:58:39 EDT, Route to Pharmacy Electronically, [id number], [facility] 3 Start Date: 02/21/19 Stop Date: 04/22/19 Status: Ordered Creon 36,000 units oral delayed release capsule 1 capsule, By Mouth, 3 times a day, with each meal and snack, # 270 capsule, 1 Refills, Maintenance, 10/21/19 11:17:00 EST, [facility] #[id number], 1 capsule By Mouth 3 times a [...] 08/24/19 9:15:39 EST, Route to Pharmacy Electronically, [id number], [facility] #[id number], 170, cm, 08/24/19 8:38:44 EST, H... Start [...] 0 Refills, Maintenance, 09/28/19 0:43:00 EST, Tablet, [facility] #[id number], 171, cm, 09/27/19 22:45:00 EST, Height, 92.2, [...] 0 Refills, Soft Stop, 09/28/19 0:51:00 EST, [facility] #[id number], 171, cm, 09/27/19 22:45:00 EST, Height, 92.2, [...] 02/21/19 8:59:46 EDT, Route to Pharmacy Electronically, [id number], [facility] 3 Start Date: 02/21/19 Stop Date: 09/19/19 [...] Refills, Maintenance, 12/05/19 20:49:00 EDT, DIS Tablet, [facility] #61577, 170, cm, 12/05/19 19:19:00 EDT, Height, 88.7, [...]
--- OUTSIDE RECORDS SUMMARY | 2024-01-27 11:32 | XMS_ITS | Continuity of Care Document ---
Author Organization [facility] Address [address] [place] [address]- Care Team Providers Care Engine Lathe Set Up Operator Name Role Phone Bienvenido WILCOX, Agustín Joaquin Primary Care Physician [place] [facility] [place] 07/14/19 - 10/11/19 [facility] [address] [place] [address]- [facility] Attending Physician: Tristan Cook MD Admitting Physician: Tristan Cook MD Referring Physician: Amos Appiah MD Allergies, [...] 02/21/19 8:58:39 EDT, Route to Pharmacy Electronically, [id number], [facility] 3 Start Date: 02/21/19 Stop [...] 08/24/19 9:15:39 EST, Route to Pharmacy Electronically, [id number], [id number], 170, cm, 08/24/19 8:38:44 EST, H... Start [...] 0 Refills, Maintenance, 09/28/19 0:43:00 EST, Tablet, [facility] #88294, 171, cm, 09/27/19 22:45:00 EST, Height, 92.2, [...] 0 Refills, Soft Stop, 09/28/19 0:51:00 EST, [facility]207, 171, cm, 09/27/19 22:45:00 EST, Height, 92.2, [...] 02/21/19 8:59:46 EDT, Route to Pharmacy Electronically, [id number], [facility] 3 Start Date: 02/21/19 Stop Date: 09/19/19 [...]
--- OUTSIDE RECORDS SUMMARY | 2024-01-27 11:32 | XMS_ITS | Continuity of Care Document ---
Author Organization [facility] Address [address] [place] [address]- Care Team Providers Care Assurance Senior Manager Name Role Phone Maranda WILCOX, Silvio Martinez Primary Care Physician Encounter [facility] Date(s): 04/16/20 - 05/16/20 [facility] [place] [address] [place] [address]- [facility] Allergies, Adverse Reactions, Alerts Substance Reaction [...] Tot. Refills 11, Maintenance, [facility]: [id number], 05/08/20 16:20:00 EDT, Supply, 169, cm, 04/15/20 [...] capsule, 1 Refills, Maintenance, 10/21/19 11:17:00 EST, [facility] #56609, 1 capsule By Mouth 3 times a [...] 04/09/21 14:58:00 EDT, 04/09/20 14:57:00 EDT, Tablet, [facility] #[id number], 169, cm, 04/05/20 12:55:00 EDT, Height, 85, [...] Acute 04/30/21 16:58:00 EDT, 04/30/20 16:57:00 EDT, [facility] #60820, 169, cm, 04/15/20 17:38:00 EDT, Height, 85, kg, 03/15/20 2:33:00 EDT, Dry Weight Start Date: 04/30/20 Stop Date: 04/30/21 Status: Ordered methylprednisolone 2 gm injectable powder for injection See Instructions, inject 4 grams IM for adrenal crisis, # 48 Gm, 11 Refills, Acute 06/08/21 12:08:00 EDT, 05/03/21 10:04:00 EDT, [facility]/pharmacy #[id number], 169, cm, 04/15/20 17:38:00 EDT, Height, 85, kg, 03/15/20 2:33:00 EDT, Dry Weight Start Date: 05/03/21 Stop Date: 06/08/21 Status: Ordered methylprednisolone 2 gm injectable powder for injection See Instructions, inject 4 grams IM for adrenal crisis, # 48 Gm, 3 Refills, Acute 05/03/21 10:04:00EDT, 05/03/20 10:03:00 EDT, [facility] #74641, 169, cm, 04/15/20 17:38:00 EDT, Height, 85, kg, 03/15/20 2:33:00 EDT, Dry Weight Start Date: 05/03/20 Stop Date: 05/03/21 Status: Ordered methylprednisolone 2 gm injectable powder for injection See Instructions, inject 4 grams IM for adrenal crisis, # 48 Gm, 3 Refills, Acute 05/03/21 11:58:00EDT, 05/03/21 10:04:00 EDT, [facility], 169, cm, 04/15/20 17:38:00 EDT, [...] 11 Refills, Soft Stop, 05/03/20 16:07:00 EDT, [facility] #93828, 169, cm, 04/15/20 17:38:00 EDT, Height, 85, [...] Refills, Maintenance, 12/05/19 20:49:00 EDT, DIS Tablet, [facility] #58975, 170, cm, 12/05/19 19:19:00 EDT, Height, 88.7, [...]
--- OUTSIDE RECORDS SUMMARY | 2024-01-27 11:32 | XMS_ITS | Continuity of Care Document ---
Author Organization [facility] Address [address] [place] [address]- Care Team Providers Care Ultrasound Applications Specialist Name Role Phone Silvio Low MD Primary Care Physician Encounter [facility] Date(s): 10/30/20 - 10/30/[address] [address]- Discharge Disposition: A-D/C Home Attending Physician: Ashish [...] Dry Weight Start Date: 05/09/20 Status: Ordered acetaminophen-oxyCODONE 325 mg-5 mg oral tablet 2 tablet, Tablet, By Mouth, Once, Routine, 10/30/20 18:00:00 EST, Stop date 10/30/20 18:00:00 EST Start Date: 10/30/20 Stop Date: 10/30/20 Status: Completed Alcohol Pads See Instructions, # 200 each, [...] capsule, 1 Refills, Maintenance, 10/21/19 11:17:00 EST, [facility] #78285, 1 capsule By Mouth 3 times a [...] 04/09/21 14:58:00 EDT, 04/09/20 14:57:00 EDT, Tablet, [facility] #84449, 169, cm, 04/05/20 12:55:00 EDT, Height, 85, [...] tablet, 3 Refills, Maintenance, 05/28/20 11:56:00 EDT, [facility] #87216, 170, cm, 05/27/20 0:11:00 EDT, Height,90.4, kg, [...] 3 Refills, Maintenance, 10/16/20 16:21:00 EST, Tablet, [facility] #66072, Partial fill upon patient request if the [...] 0 Refills, Maintenance, 06/18/20 16:48:00 EDT, Tablet, [facility] #48358, 170, cm, 06/18/20 15:14:00 EDT, Height, 90.4, kg, 06/18/20 15:14:00 EDT, Dry Weight Start Date: 06/18/20 Stop Date: 06/25/20 Status: Ordered ondansetron 8 mg oral tablet, disintegrating 1 tablet = 8 mg, By Mouth, 3 times a day, # 10 tablet, 0 Refills, Maintenance, 10/30/20 17:44:00 EST, [facility] #97573, Partial fill upon patient request if the [...] Refills, Soft Stop, 10/02/20 11:57:00 EST, Powder, [facility] #64962, Partial fill upon patient... Start Date: 10/02/20 [...] ant Asthma(Confirmed) Active Pacemaker, Biotronik, insert ed 2/9/15(Confirmed) 1 Active Chest pain(Confirmed) Active Colitis(Confirmed) Active [...] Exam Date Time Procedure Performing Provider Status 10/30/20 5:28 PM Abdomen Series W/ PA Chest Job Otero; Auth (Verified) Notes: (Abdomen Series W/ PA Chest) Reason For Exam: Distention RESULT: Abdomen Series W/ PA Chest Abdomen Series W/ PA Chest Hx of Present Illness: pt has been having increased ab pain since Wednesday wiht leg cramps . Pt has been also having increasead V V wrh diarrhea . pt claims fever intermittenly . She has been taking Tylenol and zofran with no relief . No covid exposure that she knows; Reason: Distention; Clinical Question(s): Obstruction; Free Air COMPARISON: 10/04/2020 chest radiograph. FINDINGS: LINES AND TUBES: Left subclavian pacer with leads in right atrial appendage and right ventricle. LUNGS AND PLEURA: Clear lungs. Normal vascularity. No pleural effusion. No pneumothorax. HEART, MEDIASTINUM AND DAGOBERTO: Normal. BOWEL GAS PATTERN AND SOFT TISSUES: Normal bowel gas pattern. No pneumoperitoneum. No abnormal calcifications. . Prior cholecystectomy. BONES: Post surgical changes within the lumbar spine status post fusion and discectomy. IMPRESSION: 1. No acute cardiopulmonary process. 2. Nonobstructive bowel gas pattern. WSN: [id number] Ordering Physician: Ashish Fitzgerald Dictated By: Tanmay Lehman MD Dictated Date/Time: 10/30/20 5:39 pm Reviewed By: Tanmay Lehmna MD Signed By: Tanmay Lehman MD Signed Date/Time: 10/30/20 5:39 pm Transcribed By: DIANE Transcribed Date/Time: 10/30/20 5:37 pm Vital Signs Most recent to oldest [Reference Range]: 1 2 3 Height 167 cm (10/30/20 5:07 PM) 167 cm (10/30/20 2:40 PM) Weight 91.8 kg (10/30/20 5:07 PM) 91.8 kg (10/30/20 2:40 PM) Oxygen Saturation [94-100 %] 99 % (10/30/20 5:07 PM) 98 % (10/30/20 2:40 PM) Pulse Rate [55-90 bpm] 63 bpm (10/30/20 5:07 PM) Body Mass Index [18.5-24.99] 32.92 *>HHI* (10/30/20 5:07 PM) Blood Pressure [90-138/55-84 mm Hg] 114/66mm Hg (10/30/20 5:07 PM) 128/89mm Hg (10/30/20 2:40 PM) Respiratory Rate [16-30 br/min] 20 br/min (10/30/20 5:55 PM) 16 br/min (10/30/20 5:07 PM) 22 br/min (10/30/20 2:40 PM) Temperature [96.8-100.4 DegF] 98.4 DegF (10/30/20 5:07 PM) 98.6 DegF (10/30/20 2:40 PM) Mode of Delivery (Oxygen) Room air (10/30/20 5:07 PM) Room air (10/30/20 2:40 PM) Blood pressure sites Arm, left (10/30/20 5:07 PM) Arm, left (10/30/20 2:40 PM) Temperature Route Oral (10/30/20 5:07 PM) Temporal (10/30/20 2:40 PM) Dry Weight 91.8 kg (10/30/20 5:07 PM) 91.8 kg (10/30/20 2:40 PM) Weight Obtained Via Standing scale (10/30/20 2:40 PM) Dry Weight Obtained Via Standing scale (10/30/20 2:40 PM) Social History Social History Type Response Smoking Status 10 or more cigarette s (1/2 pack or more)/day in last 30 days entered on: 08/06/19 Sex
--- OUTSIDE RECORDS SUMMARY | 2024-01-27 11:32 | XMS_ITS | Continuity of Care Document ---
Author Organization [facility] Address [address] [place] [address]- Care Team Providers Care Potato Spotter Name Role Phone Bienvenido WILCOX, Agustín Joaquin Primary Care Physician Encounter [facility] Date(s): 05/14/22 - 06/13/22 [facility] [address] [place] [address]- Referring Physician: Vero Cottrell Allergies, Adverse Reactions, [...] tablet, 4 Refills, Maintenance, 02/04/22 8:07:00 EDT, [facility] #[id number], Partial fill upon patient request if the prescription is for a schedule II opioid drug., 170, cm, 01/21/22 12:57:00 EDT, Height... Start Date: 02/04/22 Stop Date: 07/04/22 Status: Ordered busPIRone 15 mg oral tablet 1 tablet = 15 mg, By Mouth, 3 times a day, # 90 tablet, 4 Refills, Maintenance, 02/04/22 8:08:00 EDT, Tablet, [facility] #29937, Partial fill upon patient request if the prescription is fora schedule II opioid drug., 170, cm, 01/21/22 12:57... Start Date: 02/04/22 Stop Date: 07/04/22 Status: Ordered famotidine 20 mg oral tablet 20 mg, 1, tablet, By Mouth, 2 times a day, # 180 tablet, Refills 0, Tot. Refills 0, Maintenance, 01/08/21 13:59:00 EDT, Route to Pharmacy Electronically, [facility] #[id number], Partial fill upon patient request if the prescription is for a sched... Start Date: 01/08/21 Status: Ordered Flonase 50 mcg/inh nasal spray 2 sprays, Nares, Both, 2 times a day, PRN Congestion, # 16 Gm, 0 Refills, Maintenance, 08/20/20 11:17:00 EST, [place], [facility] #36689, Partial fill upon patient request if the [...] 09/25/22 15:38:00 EST, Route to Pharmacy Electronically, [facility] #[id number], Partial fill upon patient request if the prescription is for a sched... Start Date: 09/25/22 Stop Date: 09/20/23 Status: Ordered isosorbide mononitrate 30 mg oral tablet, extended release 30 mg, 1, tablet, By Mouth, Daily in AM, for 90 days, # 90 tablet, Refills 3, Tot. Refills 3, Hard Stop 09/25/22 15:38:00 EST, 09/30/21 15:38:00 EST, Route to Pharmacy Electronically, [facility] #[id number], Partial fill upon patient request if t... Start Date: 09/30/21 Stop Date: 09/25/22 Status: Ordered KlonoPIN 1 mg oral tablet 1 tablet = 1 mg, By Mouth, 2 times a day, 0.5 mg midday, # 75 tablet, 4 Refills, Maintenance, 02/04/22 8:09:00 EDT, [facility] #[id number], 170, cm, 01/21/22 12:57:00 EDT, Height, 80.9, [...] 3 Refills, Maintenance, 09/13/22 16:21:00 EST, Tablet, [facility] #25344, Partial fill upon patient request if the prescription is for a schedule II opioid dr... Start Date: 09/13/22 Stop Date: 09/08/23 Status: Ordered Metoprolol Tartrate 50 mg oral tablet 1.5 tablet = 75 mg, By Mouth, 2 times a day, for 90 days, Take 75 mg twice daily, # 270 tablet, 3 Refills, Hard Stop 09/13/22 16:21:00 EST, 09/18/21 16:21:00 EST, Tablet, [facility] #72649,Partial fill upon patient request if the prescripti... Start Date: 09/18/21 Stop Date: 09/13/22 Status: Ordered nitroglycerin 0.4 mg sublingual tablet 1 tablet = 0.4 mg, Sublingual, Every 5 minutes, PRN as needed for chest pain, not to exceed 3 doses/15 min--if pain persists, seek medical attention, # 100 tablet, 3 Refills, Maintenance, 10/16/21 11:32:00 EST, Tablet, [facility] #66972, Par... Start Date: 10/16/21 Stop Date: 02/13/22 Status: Ordered ondansetron 8 mg oral tablet, disintegrating 1 tablet = 8 mg, By Mouth, 3 times a day, PRN Nausea & Vomiting, # 30 tablet, 0 Refills, Maintenance, 12/26/20 12:55:00 EDT, [facility] #65893, Partial fill upon patient request if the prescription is for a schedule II opioid drug., 170, cm,... Start Date: 12/26/20 Status: Ordered oxyCODONE 10 mg oral tablet = 10 mg, By Mouth, Every 8 hours, as needed; on a 15/month taper, # 60 tablet, 0 Refills, Maintenance, 03/24/21 11:54:00 EDT, Tablet, [facility] #50434, Partial fill upon patient request ifthe prescription [...] capsule, 4 Refills, Maintenance, 02/04/22 8:06:00 EDT, [facility] #77981, Partial fill upon patient request if the [...] Refills, Soft Stop, 04/20/22 10:54:00 EDT, Powder, [facility] #18004, Partial fill upon patient... Start Date: 04/20/22 Status: Ordered spironolactone 25 mg oral tablet 25 mg, 1, tablet, By Mouth, Daily, # 90 tablet, Refills 3, Tot. Refills 3, Maintenance, 09/13/22 16:11:00 EST, Route to Pharmacy Electronically, [facility] #89263, Partial fill upon patientrequest if the prescription is for a schedule II op... Start Date: 09/13/22 Stop Date: 09/08/23 Status: Ordered spironolactone 25 mg oral tablet 25 mg, 1, tablet, By Mouth, Daily, for 90 days, # 90 tablet, Refills 3, Tot. Refills 3, Hard Stop 09/13/22 16:11:00 EST, 09/18/21 16:11:00 EST, Route to Pharmacy Electronically, [facility] #65092, Partial fill upon patient request if the pre... Start Date: 09/18/21 Stop Date: 09/13/22 Status: Ordered traZODone 150 mg oral tablet 1 tablet = 150 mg, By Mouth, Daily at bedtime, # 30 tablet, 4 Refills, Maintenance, 02/04/22 8:14:00 EDT, Tablet, [facility] #72885, Partial fill upon patient request if the [...] Team Personnel Name: Agustín Faria MD Address: [address] [place] [address]2 Agustín Faria MD [address]
--- OUTSIDE RECORDS SUMMARY | 2024-01-27 11:32 | XMS_ITS | Continuity of Care Document ---
Author Organization [facility] Address [address] [place] [address]- Care Team Providers Care Ballpoint Pens Assembler Name Role Phone Maranda WILCOX, Silvio Martinez Primary Care Physician Encounter [facility] Date(s): 09/10/20 - 10/10/20 [facility] [address] [place] [address]- Allergies, Adverse Reactions, Alerts Substance Reaction Severity [...] capsule, 1 Refills, Maintenance, 10/21/19 11:17:00 EST, [facility] #69249, 1 capsule By Mouth 3 times a [...] 04/09/21 14:58:00 EDT, 04/09/20 14:57:00 EDT, Tablet, [facility] #47428, 169, cm, 04/05/20 12:55:00 EDT, Height, 85, [...] 0 Refills, Maintenance, 10/08/20 10:19:00 EST, Tablet, [facility] #59608, 170, cm, 10/04/20 19:07:00 EST, Height, 91, kg, 0... Start Date: 10/08/20 Stop Date: 11/07/20 Status: Ordered KlonoPIN 1 mg oral tablet 2.5 tablet = 2.5 mg, By Mouth, Daily at bedtime, 0.5 mg TID 1 mg at hs, # 75 tablet, 3 Refills, Maintenance, 05/28/20 11:56:00 EDT, [facility] #56057, 170, cm, 05/27/20 0:11:00 EDT, Height,90.4, kg, [...] 0 Refills, Maintenance, 06/18/20 16:48:00 EDT, Tablet, [facility] #70384, 170, cm, 06/18/20 15:14:00 EDT, Height, 90.4, [...] Refills, Soft Stop, 10/02/20 11:57:00 EST, Powder, [facility] #17039, Partial fill upon patient... Start Date: 10/02/20 [...]
--- OUTSIDE RECORDS SUMMARY | 2024-01-27 11:32 | XMS_ITS | Continuity of Care Document ---
Author Organization [facility] Address [address] [place] [address]- Care Team Providers Care Monument Carver Name Role Phone Maranda WILCOX, Silvio Martinez Primary Care Physician Encounter [facility] Date(s): 08/28/20 - 09/27/20 [facility] [place] [address] [place] [address]- Allergies, Adverse Reactions, Alerts Substance Reaction Severity [...] capsule, 1 Refills, Maintenance, 10/21/19 11:17:00 EST, [facility] #39445, 1 capsule By Mouth 3 times a [...] 04/09/21 14:58:00 EDT, 04/09/20 14:57:00 EDT, Tablet, [facility] #14004, 169, cm, 04/05/20 12:55:00 EDT, Height, 85, [...] tablet, 3 Refills, Maintenance, 05/28/20 11:56:00 EDT, [facility] #73516, 170, cm, 05/27/20 0:11:00 EDT, Height,90.4, kg, [...] 0 Refills, Maintenance, 06/18/20 16:48:00 EDT, Tablet, [facility] #65087, 170, cm, 06/18/20 15:14:00 EDT, Height, 90.4, [...] 11 Refills, Soft Stop, 07/10/20 6:01:00 EDT, [facility] #74466, 170, cm, 07/10/20 2:42:00 EDT, Height, 90.5, kg, 07/09/20 23:20:00 EDT, Dry Weight Start Date: 07/10/20 Status: Ordered Solu-CORTEF 100 mg preservative-free injection = 100 mg, Intramuscular, Once, prn adrenal crisis, # 5 each, 11 Refills, Soft Stop, 05/03/20 16:07:00 EDT, [facility] #34497, 169, cm, 04/15/20 17:38:00 EDT, Height, 85, [...]
--- OUTSIDE RECORDS SUMMARY | 2024-01-27 11:32 | XMS_ITS | Continuity of Care Document ---
Author Organization [facility] [place] Address [address] [place] [address]- Care Team Providers Care Laserist Name Role Phone Maranda WILCOX, Silvio Martinez Primary Care Physician Encounter [facility] Date(s): 05/15/20 - 06/14/20 [facility] [place] [address] [place] [address]- [facility] Allergies, Adverse Reactions, Alerts Substance Reaction Severity [...] Refills 11, Maintenance, [facility]: [id number], 05/08/20 16:20:00 EDT, Supply, 169, cm, 04/15/20 [...] capsule, 1 Refills, Maintenance, 10/21/19 11:17:00 EST, [facility] #32471, 1 capsule By Mouth 3 times a [...] 04/09/21 14:58:00 EDT, 04/09/20 14:57:00 EDT, Tablet, [facility] #35652, 169, cm, 04/05/20 12:55:00 EDT, Height, 85, [...] tablet, 3 Refills, Maintenance, 05/28/20 11:56:00 EDT, [facility] #67321, 170, cm, 05/27/20 0:11:00 EDT, Height,90.4, kg, [...] Acute 04/30/21 16:58:00 EDT, 04/30/20 16:57:00 EDT, [facility] #54748, 169, cm, 04/15/20 17:38:00 EDT, Height, 85, kg, 03/15/20 2:33:00 EDT, Dry Weight Start Date: 04/30/20 Stop Date: 04/30/21 Status: Ordered methylprednisolone 2 gm injectable powder for injection See Instructions, inject 4 grams IM for adrenal crisis, # 48 Gm, 11 Refills, Acute 06/08/21 12:08:00 EDT, 05/03/21 10:04:00 EDT, [facility]/pharmacy #1111, 169, cm, 04/15/20 17:38:00 EDT, Height, 85, kg, 03/15/20 2:33:00 EDT, Dry Weight Start Date: 05/03/21 Stop Date: 06/08/21 Status: Ordered methylprednisolone 2 gm injectable powder for injection See Instructions, inject 4 grams IM for adrenal crisis, # 48 Gm, 3 Refills, Acute 05/03/21 10:04:00EDT, 05/03/20 10:03:00 EDT, [facility] #15559, 169, cm, 04/15/20 17:38:00 EDT, Height, 85, kg, 03/15/20 2:33:00 EDT, Dry Weight Start Date: 05/03/20 Stop Date: 05/03/21 Status: Ordered methylprednisolone 2 gm injectable powder for injection See Instructions, inject 4 grams IM for adrenal crisis, # 48 Gm, 3 Refills, Acute 05/03/21 11:58:00EDT, 05/03/21 10:04:00 EDT, [facility], 169, cm, 04/15/20 17:38:00 [...] 11 Refills, Soft Stop, 05/03/20 16:07:00 EDT, [facility] #[id number], 169, cm, 04/15/20 17:38:00 EDT, Height, 85, [...] Refills, Maintenance, 12/05/19 20:49:00 EDT, DIS Tablet, [facility] #[id number], 170, cm, 12/05/19 19:19:00 EDT, Height, 88.7, [...]
--- OUTSIDE RECORDS SUMMARY | 2024-01-27 11:32 | XMS_ITS | Continuity of Care Document ---
Author Organization [facility] Address [address] [place] [address]- Care Team Providers Care Hairpiece Stylist Name Role Phone Maranda WILCOX, Silvio Martinez Primary Care Physician Encounter [facility] Date(s): 05/01/20 - 05/31/20 [facility] [address] [place] [address]- [facility] Allergies, Adverse Reactions, Alerts Substance Reaction [...] Maintenance, [facility]: [id number], 05/08/20 16:20:00 EDT, Supply, 169, cm, 04/15/20 [...] capsule, 1 Refills, Maintenance, 10/21/19 11:17:00 EST, [facility] #33058, 1 capsule By Mouth 3 times a [...] 04/09/21 14:58:00 EDT, 04/09/20 14:57:00 EDT, Tablet, [facility] #72247, 169, cm, 04/05/20 12:55:00 EDT, Height, 85, [...] tablet, 3 Refills, Maintenance, 05/28/20 11:56:00 EDT, [facility] #79557, 170, cm, 05/27/20 0:11:00 EDT, Height,90.4, kg, [...] Acute 04/30/21 16:58:00 EDT, 04/30/20 16:57:00 EDT, [facility] #[id number], 169, cm, 04/15/20 17:38:00 EDT, Height, 85, kg, 03/15/20 2:33:00 EDT, Dry Weight Start Date: 04/30/20 Stop Date: 04/30/21 Status: Ordered methylprednisolone 2 gm injectable powder for injection See Instructions, inject 4 grams IM for adrenal crisis, # 48 Gm, 11 Refills, Acute 06/08/21 12:08:00 EDT, 05/03/21 10:04:00 EDT, [facility]/pharmacy #1111, 169, cm, 04/15/20 17:38:00 EDT, Height, 85, kg, 03/15/20 2:33:00 EDT, Dry Weight Start Date: 05/03/21 Stop Date: 06/08/21 Status: Ordered methylprednisolone 2 gm injectable powder for injection See Instructions, inject 4 grams IM for adrenal crisis, # 48 Gm, 3 Refills, Acute 05/03/21 10:04:00EDT, 05/03/20 10:03:00 EDT, [facility] #17417, 169, cm, 04/15/20 17:38:00 EDT, Height, 85, [...] 06/01/20 4:49:00 EDT, 05/27/20 4:49:00 EDT, Tablet, [facility] #[id number], Partial fill upon patient request, 170, cm, [...] 11 Refills, Soft Stop, 05/03/20 16:07:00 EDT, [facility] #[id number], 169, cm, 04/15/20 17:38:00 EDT, Height, 85, [...] Refills, Maintenance, 12/05/19 20:49:00 EDT, DIS Tablet, [facility] #[id number], 170, cm, 12/05/19 19:19:00 EDT, Height, 88.7, [...]
--- OUTSIDE RECORDS SUMMARY | 2024-01-27 11:32 | XMS_ITS | Continuity of Care Document ---
Author Organization [facility] On[facility] Address [address] [place] [address]- Care Team Providers Care Passenger Car Cleaning Supervisor Name Role Phone Bienvenido WILCOX, Agustín Joaquin Primary Care Physician [phone] Encounter [facility] [place] Date(s): 11/07/21 - 12/10/21 [facility] On[facility] [address] [place] [id number] Attending Physician: Nicole Cottrell MD Admitting Physician: Nicole Cottrell MD Allergies, Adverse Reactions, Alerts Substance Reaction Severity Status propranolol Rash Active Reglan severe anxiety~panic Active Lexapro n/v [...] tablet, 0 Refills, Maintenance, 12/26/20 12:55:00 EDT, [facility] #[id number], Partial fill upon patient request if the [...] Refills, Soft Stop, 10/27/21 14:15:00 EST, Powder, [facility] #[id number], Partial fill upon patient... Start Date: 10/27/21 [...] Model STENT STRETCH VL 6FR - BSCI ([id number]) 1 Last Size Amanda Unknown GO:No Information Assigning Authority: FDA
--- OUTSIDE RECORDS SUMMARY | 2024-01-27 11:32 | XMS_ITS | Continuity of Care Document ---
Author Organization [facility] Address [address] [place] [address]- Care Team Providers Care Cardiac Monitor Name Role Phone Dash WILCOX (MS), Paola Anderson Primary Care Physician Encounter [facility] Date(s): 07/24/23 - 09/02/[address] [address]- Attending Physician: Amos Appiah MD Admitting Physician: [...] 0 Refills, Maintenance, 07/15/23 11:42:00 EDT, Tablet, [facility] #[id number], Partial fill upon patient request if the [...] 4 Refills, Maintenance, 08/10/23 14:21:00 EST, Tablet, [facility] #[id number], Partial fill upon patient request if the prescription is fora schedule II opioid drug., 170, cm, 08/05/23 3:21:... Start Date: 08/10/23 Stop Date: 01/07/24 Status: Ordered metoprolol 100 mg oral tablet 100 mg, 1, tablet, By Mouth, 2 times a day, # 60 tablet, Refills 3, Tot. Refills 3, Maintenance, 05/14/23 20:59:00 EDT, Route to Pharmacy Electronically, [facility] #[id number], Partial fill upon patient request if the [...] 0 Refills, Maintenance, 05/13/23 10:33:00 EDT, Tablet, [facility] #[id number], Partial fill upon patient request if the prescription is for a schedule II opioid drug., 1... Start Date: 05/13/23 Stop Date: 05/16/23 Status: Ordered potassium chloride 10 mEq oral tablet, extended release 2 tablet = 20 mEq, By Mouth, Daily, # 14 tablet, 0 Refills, Soft Stop, 08/27/23 8:49:00 EST, ER Tablet, [facility] #[id number], Partial fill upon patient request if the [...] capsule, 4 Refills, Maintenance, 08/10/23 14:14:00 EST, [facility] #[id number], Partial fill upon patient request if the [...] Refills, Soft Stop, 05/27/23 14:16:00 EDT, Powder, [facility] #[id number], Partial fill upon patient... Start Date: 05/27/23 Status: Ordered spironolactone 25 mg oral tablet 25 mg, 1, tablet, By Mouth, Daily, # 30 tablet, Refills 3, Tot. Refills 3, Maintenance, 05/14/23 20:55:00 EDT, Route to Pharmacy Electronically, [facility] #[id number], Partial fill upon patientrequest if the prescription is for a schedule II op... Start Date: 05/14/23 Stop Date: 09/11/23 Status: Ordered Wellbutrin SR 100 mg/12 hours oral tablet, extended release 1 tablet = 100 mg, By Mouth, Daily, # 30 tablet, 4 Refills, Maintenance, 08/10/23 14:26:00 EST, [facility] #[id number], Partial fill upon patient request if the [...] information Care Team Personnel Name: Dash WILCOX (MS) , Paola Anderson Position: [facility] Outreach Member Role: PCP Address: Address: [address] [place] [phone] [place] Name: Gregg Capps RN Position: [facility] RN Member Role: Primary Care Nurse Name: Daina Ibrahim RN Position: [facility] ED RN W/OE and Tasks Member Role: Primary Care Nurse Name: Madeline Baird RN Position: [facility] ED RN W/OE and Tasks Member Role: Primary Care Nurse Name: Teresa Carpio Position: [facility] RN Member Role: Primary Care Nurse Name: Inge Elizabeth RN Position: [facility] SN RN Member Role: Primary Care Nurse Name: Kelley Prasad RN Position: [facility] RN Member Role: Primary Care Nurse Name: Cindy Medeiros RN Position: [facility] RN Member Role: Primary Care Nurse Name: Linnette De La O RN Position: [facility] WOOD SASH AND FRAME CARPENTER Member Role: Primary Care Nurse Name: Alina Castillo NP Position: [facility] Associate Professional Member Role: Primary Care Nurse Address: Address: [address] [place] [address]- [place] Name: Mary Anne Kilpatrick RN Position: [facility] MR W/ Merge Member Role: Primary Care Nurse Name: Nicole Hernández RN Position: [facility] RN Member Role: Primary Care Nurse Name: Lindsay Srinivasan CNM Position: [facility] Lithographic Retoucher Apprentice Member Role: Primary Care Nurse Address: Address: [address] [place] [address]- [place] Name: Kiana Sabillon RN Position: [facility] RN Member Role: Primary Care Nurse Name: Larissa Olson [place] Position: [facility] RN Member Role: Primary Care Nurse Name: Karen Roa RN Position: [facility] ED RN W/OE and Tasks Member Role: Primary Care Nurse Name: Mary Alice Stevens RN Position: [facility] RN Member Role: Primary Care Nurse Name: Beverly Grey Position: [facility] RN Member Role: Primary Care Nurse Name: Alexy Geronimo RN Position: [facility] ED RN W/OE and Tasks Member Role: Primary Care Nurse Name: Raúl Rudolph DO Position: [facility] INFANT CAREGIVER MD Member Role: [employer] INFANT CAREGIVER Physician Address: Address: [address] [place] [address]- Name: Evelyn Haynes RN Position: [facility] RN Member Role: Primary Care Nurse Name: Crissy Metzger RN Position: [facility] RN Member Role: Primary Care Nurse Name: Elisa Gilbert RN Position: [facility] RN Member Role: Primary Care Nurse Name: Corina Solorio RN Position: [facility] Nurse Member Role: Primary Care Nurse Name: Shawnee Lane RN Position: [facility] ED RN W/OE and Tasks Member Role: Primary Care Nurse Name: Ana Estrada RN Position: [facility] RN Member Role: Primary Care Nurse Name: Erna Douglass RN Position: [facility] RN Member Role: Primary Care Nurse Name: Keyana Ndiaye RN Position: [facility] Draw In Hand Member Role: Primary Care Nurse Name: Anabella Nicholson RN Position: [facility] Nurse Member Role: Primary Care Nurse Name: Brenda Tomas RN Position: [facility] Outreach Member Role: Primary Care Nurse Name: Ramona Ybarra RN Position: [facility] RN Member Role: Primary Care Nurse Address: Address: [address] [place] [address]- Name: Nancy Gallagher RN Position: [facility] Draw In Hand Member Role: Primary Care Nurse Name: Evelyn Allen RN Position: [facility] OB RN Member Role: Primary Care Nurse Name: Jackelin Watt RN Position: [facility] RN Member Role: Primary Care Nurse Name: Raymundo Elizabeth RN Position: [facility] SN RN Member Role: Primary Care Nurse Name: Opal Calderon RN Position: [facility] RN Member Role: Primary Care Nurse Name: Garfield Warner RNkapau Position: [facility] RN Member Role: Primary Care Nurse Care Team Related Persons Name: IBRAHIMBARTOLOME Address: [address] [place], [place] Name: GIANLUCA IBRAHIM Address: home [address] [place] [address] Name: ABBIE IBRAHIM Address: home [address] [place], [place] Name: SIM CERDA Name: DIANE CERDA Address: home [address] [place] [id number] Name: SOLO CORRIGAN Address: home [address] [place] [address] Name: SOLO FLORES Address: [address] Name: RAYMUNDO MAYFIELD Address: home [address] [place] [address]
--- OUTSIDE RECORDS SUMMARY | 2024-01-27 11:32 | XMS_ITS | Continuity of Care Document ---
Author Organization [facility] Address [address] [place] [address]- Care Team Providers Care Balance Assembler Name Role Phone Bienvenido WILCOX, Agustín Joaquin Primary Care Physician [place] [facility]s): 04/20/22 - 05/20/22 [facility] [address] [place] [id number] Attending Physician: Maximo Cano Admitting Physician: AdmtrMaximo [...] tablet, 4 Refills, Maintenance, 02/04/22 8:07:00 EDT, [facility] #[id number], Partial fill upon patient request if the prescription is for a schedule II opioid drug., 170, cm, 01/21/22 12:57:00 EDT, Height... Start Date: 02/04/22 Stop Date: 07/04/22 Status: Ordered busPIRone 15 mg oral tablet 1 tablet = 15 mg, By Mouth, 3 times a day, # 90 tablet, 4 Refills, Maintenance, 02/04/22 8:08:00 EDT, Tablet, [facility] #[id number], Partial fill upon patient request if the prescription is fora schedule II opioid drug., 170, cm, 01/21/22 12:57... Start Date: 02/04/22 Stop Date: 07/04/22 Status: Ordered famotidine 20 mg oral tablet 20 mg, 1, tablet, By Mouth, 2 times a day, # 180 tablet, Refills 0, Tot. Refills 0, Maintenance, 01/08/21 13:59:00 EDT, Route to Pharmacy Electronically, [facility] #[id number], Partial fill upon patient request if the prescription is for a sched... Start Date: 01/08/21 Status: Ordered Flonase 50 mcg/inh nasal spray 2 sprays, Nares, Both, 2 times a day, PRN Congestion, # 16 Gm, 0 Refills, Maintenance, 08/20/20 11:17:00 EST, Amber, [facility] #[id number], Partial fill upon patient request if the [...] 09/25/22 15:38:00 EST, Route to Pharmacy Electronically, [facility] #[id number], Partial fill upon patient request if the prescription is for a sched... Start Date: 09/25/22 Stop Date: 09/20/23 Status: Ordered isosorbide mononitrate 30 mg oral tablet, extended release 30 mg, 1, tablet, By Mouth, Daily in AM, for 90 days, # 90 tablet, Refills 3, Tot. Refills 3, Hard Stop 09/25/22 15:38:00 EST, 09/30/21 15:38:00 EST, Route to Pharmacy Electronically, [facility] #[id number], Partial fill upon patient request if t... Start Date: 09/30/21 Stop Date: 09/25/22 Status: Ordered KlonoPIN 1 mg oral tablet 1 tablet = 1 mg, By Mouth, 2 times a day, 0.5 mg midday, # 75 tablet, 4 Refills, Maintenance, 02/04/22 8:09:00 EDT, [facility] #[id number], 170, cm, 01/21/22 12:57:00 EDT, Height, 80.9, [...] 3 Refills, Maintenance, 09/13/22 16:21:00 EST, Tablet, [facility] #[id number], Partial fill upon patient request if the prescription is for a schedule II opioid dr... Start Date: 09/13/22 Stop Date: 09/08/23 Status: Ordered Metoprolol Tartrate 50 mg oral tablet 1.5 tablet = 75 mg, By Mouth, 2 times a day, for 90 days, Take 75 mg twice daily, # 270 tablet, 3 Refills, Hard Stop 09/13/22 16:21:00 EST, 09/18/21 16:21:00 EST, Tablet, [facility] #[id number],Partial fill upon patient request if the prescripti... Start Date: 09/18/21 Stop Date: 09/13/22 Status: Ordered nitroglycerin 0.4 mg sublingual tablet 1 tablet = 0.4 mg, Sublingual, Every 5 minutes, PRN as needed for chest pain, not to exceed 3 doses/15 min--if pain persists, seek medical attention, # 100 tablet, 3 Refills, Maintenance, 10/16/21 11:32:00 EST, Tablet, [facility] #[id number], Par... Start Date: 10/16/21 Stop Date: 02/13/22 Status: Ordered ondansetron 8 mg oral tablet, disintegrating 1 tablet = 8 mg, By Mouth, 3 times a day, PRN Nausea & Vomiting, # 30 tablet, 0 Refills, Maintenance, 12/26/20 12:55:00 EDT, [facility] #[id number], Partial fill upon patient request if the prescription is for a schedule II opioid drug., 170, cm,... Start Date: 12/26/20 Status: Ordered oxyCODONE 10 mg oral tablet = 10 mg, By Mouth, Every 8 hours, as needed; on a 15/month taper, # 60 tablet, 0 Refills, Maintenance, 03/24/21 11:54:00 EDT, Tablet, [facility] #[id number], Partial fill upon patient request ifthe prescription [...] capsule, 4 Refills, Maintenance, 02/04/22 8:06:00 EDT, [facility] #[id number], Partial fill upon patient request if the [...] Refills, Soft Stop, 04/20/22 10:54:00 EDT, Powder, [facility] #[id number], Partial fill upon patient... Start Date: 04/20/22 Status: Ordered spironolactone 25 mg oral tablet 25 mg, 1, tablet, By Mouth, Daily, # 90 tablet, Refills 3, Tot. Refills 3, Maintenance, 09/13/22 16:11:00 EST, Route to Pharmacy Electronically, [facility] #[id number], Partial fill upon patientrequest if the prescription is for a schedule II op... Start Date: 09/13/22 Stop Date: 09/08/23 Status: Ordered spironolactone 25 mg oral tablet 25 mg, 1, tablet, By Mouth, Daily, for 90 days, # 90 tablet, Refills 3, Tot. Refills 3, Hard Stop 09/13/22 16:11:00 EST, 09/18/21 16:11:00 EST, Route to Pharmacy Electronically, [facility] #[id number], Partial fill upon patient request if the pre... Start Date: 09/18/21 Stop Date: 09/13/22 Status: Ordered traZODone 150 mg oral tablet 1 tablet = 150 mg, By Mouth, Daily at bedtime, # 30 tablet, 4 Refills, Maintenance, 02/04/22 8:14:00 EDT, Tablet, [facility] #[id number], Partial fill upon patient request if the [...] Response Smoking Status Current every day rowan oker; Previous treatment: Counseling; Previous treatment: Nicotine [...] Team Personnel Name: Agustín Faria MD Address: [address] [place] [address] [address] Agustín Faria MD [address]
--- OUTSIDE RECORDS SUMMARY | 2024-01-27 11:32 | XMS_ITS | Continuity of Care Document ---
Author Organization [facility] Address [address] [place] [address]- Care Team Providers Care Outsewer Name Role Phone Bienvenido WILCOX, Agustín Joaquin Primary Care Physician [place] [facility] Date(s): 03/30/23 - 04/29/23 [facility] [address] [place] [address]- Allergies, Adverse Reactions, Alerts Substance Reaction Severity Status propranolol Rash Active Nardil Palpitations - rapid N&V - Nausea and vomiting C/O - a headache Active Inderal n/v,tachcardia Active Cefzil Hives Active Xarelto rash Active Lexapro n/v Active Zoloft tachycardia n/v Active Haldol Active Compazine severe anxiety [...] 12/31/22 14:22:00 EDT, Route to Pharmacy Electronically, [facility] #[id number], Partial fill upon patient request if the prescription is for a schedule II opi... Start Date: 12/31/22 Status: Ordered Aspirin Low Dose 81 mg oral delayed release tablet 1 tablet, By Mouth, Daily, # 30 tablet, 3 Refills, Maintenance, 08/17/22 15:43:00 EST, [facility] #[id number], 170, cm, 05/13/22 17:18:00 EDT, Height, 88.8, [...] 01/08/21 13:59:00 EDT, Route to Pharmacy Electronically, [facility] #[id number], Partial fill upon patient request if the prescription is for a sched... Start Date: 01/08/21 Status: Ordered Flonase 50 mcg/inh nasal spray 2 sprays, Nares, Both, 2 times a day, PRN Congestion, # 16 Gm, 0 Refills, Maintenance, 08/20/20 11:17:00 EST, [place], [facility] #[id number], Partial fill upon patient request if the prescriptionis for a schedule II opioid drug., 170, cm, ... Start Date: 08/20/20 Status: Ordered gabapentin 300 mg oral capsule 300 mg, 1, capsule, By Mouth, 2 times a day, # 60 capsule, Refills 4, Tot. Refills 4, Maintenance, 11/11/22 15:13:00 EST, Route to Pharmacy Electronically, [facility] #[id number], Partial fill upon patient request if the [...] 12/31/22 14:22:00 EDT, Route to Pharmacy Electronically, [facility] #[id number], Partial fill upon patient request if the prescription is for a sched... Start Date: 12/31/22 Stop Date: 12/26/23 Status: Ordered KlonoPIN 1 mg oral tablet 1 tablet = 1 mg, By Mouth, 2 times a day, dose is BID, # 60 tablet, 4 Refills, Maintenance, 03/10/23 15:33:00 EDT, [facility] #[id number], NO EARLY REFILLS, 170, cm, 02/01/23 7:48:00 [...] tablet, 0 Refills, Maintenance, 12/31/22 14:21:00 EDT, [facility] #[id number], Partial fill upon patient request if the prescription is for a schedule II opioid drug., 170, cm, 12/31/22 13:57:00 ED... Start Date: 12/31/22 Status: Ordered nitroglycerin 0.4 mg sublingual tablet 1 tablet, Sublingual, Every 5 minutes, PRN NEEDED FOR CHEST PAIN MAX 3 DOSES IN 15 MINUTES IF PAIN PERSISTS CALL 911, # 100 tablet, 3 Refills, Maintenance, 12/21/22 11:43:00 EDT, [facility] #[id number], 170, cm, 05/13/22 17:18:00 EDT, Height,... Start Date: 12/21/22 Status: Ordered ondansetron 8 mg oral tablet, disintegrating 1 tablet = 8 mg, By Mouth, 3 times a day, PRN Nausea & Vomiting, # 30 tablet, 0 Refills, Maintenance, 12/26/20 12:55:00 EDT, [facility] #[id number], Partial fill upon patient request if the [...] capsule, 4 Refills, Maintenance, 11/11/22 15:17:00 EST, [facility] #[id number], Partial fill upon patient request if the [...] 03/10/23 15:36:00 EDT, Route to Pharmacy Electronically, [facility] #[id number], Partial fill upon patient request if the [...] Refills, Soft Stop, 04/20/22 10:54:00 EDT, Powder, [facility] #[id number], Partial fill upon patient... Start Date: 04/20/22 Status: Ordered spironolactone 25 mg oral tablet 25 mg, 1, tablet, By Mouth, Daily, # 90 tablet, Refills 3, Tot. Refills 3, Maintenance, 09/13/22 16:11:00 EST, Route to Pharmacy Electronically, [facility] #[id number], Partial fill upon patientrequest if the prescription is for a schedule II op... Start Date: 09/13/22 Stop Date: 09/08/23 Status: Ordered traZODone 300 mg oral tablet 1 tablet = 300 mg, By Mouth, Daily at bedtime, # 30 tablet, 4 Refills, Maintenance, 11/11/22 15:09:00 EST, [facility] #[id number], Partial fill upon patient request if the [...] Team Personnel Name: Daina Ibrahim RN Position: [facility] ED RN W/OE and Tasks Member Role: Primary Care Nurse Name: Madeline Baird RN Position: [facility] ED RN W/OE and Tasks Member Role: Primary Care Nurse Name: Teresa Carpio Position: [facility] RN Member Role: Primary Care Nurse Name: Inge Elizabeth RN Position: [facility] SN RN Member Role: Primary Care Nurse Name: Kelley Prasad RN Position: [facility] RN Member Role: Primary Care Nurse Name: Cindy Medeiros RN Position: [facility] RN Member Role: Primary Care Nurse Name: Linnette De La O RN Position: [facility] SILVERWARE WASHER Member Role: Primary Care Nurse Name: Alina Castillo NP Position: [facility] Associate Professional Member Role: Primary Care Nurse Address: Address: [address] [place] [address]- [place] Name: Mary Anne Kilpatrick RN Position: [facility] MR W/ Merge Member Role: Primary Care Nurse Name: Agustín Faria MD Position: [facility] Outreach Member Role: PCP Address: Address: [address] [facility] [address] Agustín [place] [address]- [place] Name: Nicole Hernández RN Position: [facility] RN Member Role: Primary Care Nurse Name: Douglas Harris Position: [facility] Cardio/Pulm Mgr [place] [place] Member Role: Primary Care Nurse Name: Linsday Srinivasan CNM Position: [facility] Towel Sewer Member Role: Primary Care Nurse Address: Address: [address] [facility] [place] [address]- [place] Name: Larissa Olson [place] Position: [facility] RN Member Role: Primary Care Nurse Name: Karen Roa RN Position: [facility] ED RN W/OE and Tasks Member Role: Primary Care Nurse Name: Mary Alice Stevens RN Position: [facility] RN Member Role: Primary Care Nurse Name: Beverly Grey Position: [facility] RN Member Role: Primary Care Nurse Name: Alexy Geronimo RN Position: [facility] RN Member Role: Primary Care Nurse Name: Raúl Rudolph DO Position: [facility] AUDIO SPECIALIST MD Member Role: Lifetime AUDIO SPECIALIST Physician Address: Address: [address] [facility] [employer] [place] [address]- [place] Name: Evelyn Haynes RN Position: [facility] RN Member Role: Primary Care Nurse Name: Crissy Metzger RN Position: [facility] RN Member Role: Primary Care Nurse Name: Elisa Gilbert RN Position: [facility] RN Member Role: Primary Care Nurse Name: Corina Solorio RN Position: [facility] AMB Nurse Member Role: Primary Care Nurse Name: Shawnee Lane RN Position: [facility] ED RN W/OE and Tasks Member Role: Primary Care Nurse Name: Erna Douglass RN Position: [facility] SN RN Member Role: Primary Care Nurse Name: Keyana Ndiaye RN Position: [facility] Hospital Information Technology Associate Member Role: Primary Care Nurse Name: Anabella Nicholson RN Position: [facility] AMB Nurse Member Role: Primary Care Nurse Name: Brenda Tomas RN Position: [facility] Outreach Member Role: Primary Care Nurse Name: Ramona Ybarra RN Position: [facility] RN Member Role: Primary Care Nurse Address: Address: [address] [place] [address]- Name: Nancy Gallagher RN Position: [facility] Hospital Information Technology Associate Member Role: Primary Care Nurse Name: Evelyn Allen RN Position: [facility] OB RN Member Role: Primary Care Nurse Name: Jackelin Watt RN Position: [facility] RN Member Role: Primary Care Nurse Name: Raymundo Elizabeth RN Position: [facility] SN RN Member Role: Primary Care Nurse Name: Opal Calderon RN Position: [facility] RN Member Role: Primary Care Nurse Name: Timmy RNYadiel Position: [facility] SN RN Member Role: Primary Care Nurse Care Team Related Persons Name: BARTOLOME IBRAHIM Address: [address] [place] [address] Name: GIANLUCA IBRAHIM Address: [address] [place], [place] Name: ABBIE IBRAHIM Address: [address] [place], [place] Name: SIM CERDA Name: DIANE CERDA Address: [address] [place] [address] Name: SOLO CORRIGAN Address: [address] [place] [address] Name: SOLO FLORES Address: [address] [place], [place] Name: RAYMUNDO MAYFIELD Address: [address] [place] [address]
--- OUTSIDE RECORDS SUMMARY | 2024-01-27 11:32 | XMS_ITS | Continuity of Care Document ---
Author Organization [facility] Address [address] [place] [address]- Care Team Providers Care Hydraulic Blocker Name Role Phone Bienvenido WILCOX, Agustín Joaquin Primary Care Physician Encounter [facility] Date(s): 05/03/23 - 06/02/23 [facility] [address] [place] [id number]- Allergies, Adverse Reactions, Alerts Substance Reaction Severity [...] tablet, 3 Refills, Maintenance, 08/17/22 15:43:00 EST, [facility] #[id number], 170, cm, 05/13/22 17:18:00 EDT, Height, 88.8, [...] 01/08/21 13:59:00 EDT, Route to Pharmacy Electronically, [facility] #[id number], Partial fill upon patient request if the prescription is for a sched... Start Date: 01/08/21 Status: Ordered Flonase 50 mcg/inh nasal spray 2 sprays, Nares, Both, 2 times a day, PRN Congestion, # 16 Gm, 0 Refills, Maintenance, 08/20/20 11:17:00 EST, [place], [facility][id number], Partial fill upon patient request if the prescriptionis for a schedule II opioid drug., 170, cm, ... Start Date: 08/20/20 Status: Ordered gabapentin 300 mg oral capsule See Instructions, 1 cap in the AM, 2 in the afternoon and 2 at bedtime, # 1 each, Refills 4, Tot. Refills 4, Maintenance, 11/11/22 15:13:00 EST, Instructions Replace Required Details, Route to Pharmacy Electronically, [facility] #[id number], Part... Start Date: 11/11/22 Status: Ordered Insulin [...] 05/14/23 20:59:00 EDT, Route to Pharmacy Electronically, [facility] #[id number], Partial fill upon patient request if the [...] 0 Refills, Maintenance, 05/13/23 10:33:00 EDT, Tablet, [facility] #[id number], Partial fill upon patient request if the prescription is for a schedule II opioid drug., 1... Start Date: 05/13/23 Stop Date: 05/16/23 Status: Ordered prazosin 2 mg oral capsule 2 capsule = 4 mg, By Mouth, Daily at bedtime, if PO intake is low or BP low below 110/70 only take one cap, # 60 capsule, 4 Refills, Maintenance, 11/11/22 15:17:00 EST, [facility] #[id number], Partial fill upon patient request if the prescription... Start Date: 11/11/22 Stop Date: 04/10/23 Status: Ordered PROzac 20 mg oral capsule 40 mg, 2, capsule, By Mouth, Daily, # 60 capsule, Refills 4, Tot. Refills 4, Maintenance, 03/10/23 15:36:00 EDT, Route to Pharmacy Electronically, [facility] #[id number], Partial fill upon patient request if the [...] Refills, Soft Stop, 05/27/23 14:16:00 EDT, Pow[place], [facility] #[id number], Partial fill upon patient... Start Date: 05/27/23 Status: Ordered spironolactone 25 mg oral tablet 25 mg, 1, tablet, By Mouth, Daily, # 30 tablet, Refills 3, Tot. Refills 3, Maintenance, 05/14/23 20:55:00 EDT, Route to Pharmacy Electronically, [facility] #[id number], Partial fill upon patientrequest if the prescription [...] Team Personnel Name: Daina Ibrahim RN Position: [facility] ED RN W/OE and Tasks Member Role: Primary Care Nurse Name: Madeline Baird RN Position: [facility] ED RN W/OE and Tasks Member Role: Primary Care Nurse Name: Teresa Carpio Position: [facility] RN Member Role: Primary Care Nurse Name: Inge Elizabeth RN Position: [facility] SN RN Member Role: Primary Care Nurse Name: Kelley Prasad RN Position: S RN Member Role: Primary Care Nurse Name: Cindy Medeiros RN Position: [facility] RN Member Role: Primary Care Nurse Name: Linnette De La O RN Position: [facility] KNIT GOODS MENDER Member Role: Primary Care Nurse Name: Alina Castillo NP Position: [facility] Associate Professional Member Role: Primary Care Nurse Address: Address: [address] [facility] [place] [address]- [place] Name: Mary Anne Kilpatrick RN Position: [facility] MR W/ Merge Member Role: Primary Care Nurse Name: Agustín Faria MD Position: [facility] Outreach Member Role: PCP Address: Address: [address] [facility] [address] [place] [address]- [place] Name: Nicole Hernández RN Position: [facility] RN Member Role: Primary Care Nurse Name: Lindsay Srinivasan CNM Position: [facility] Booth Cleaner Member Role: Primary Care Nurse Address: Address: [address] [facility] [place] [address]- [place] Name: Larissa Olson [place] Position: [facility] RN Member Role: Primary Care Nurse Name: Karen Roa RN Position: [facility] ED RN W/OE and Tasks Member Role: Primary Care Nurse Name: Mary Alice Stevens RN Position: [facility] RN Member Role: Primary Care Nurse Name: Beverly Grey Position: [facility] RN Member Role: Primary Care Nurse Name: Alexy Geronimo RN Position: [facility] RN Member Role: Primary Care Nurse Name: Raúl Rudolph DO Position: [facility] SOLAR INSTALLATION TECHNICIAN MD Member Role: Lifetime SOLAR INSTALLATION TECHNICIAN Physician Address: Address: [address] [place] [address]- [place] Name: Evelyn Haynes RN Position: [facility] RN Member Role: Primary Care Nurse Name: Crissy Metzger RN Position: [facility] RN Member Role: Primary Care Nurse Name: Elisa Gilbert RN Position: [facility] RN Member Role: Primary Care Nurse Name: Corina Solorio RN Position: [facility] AMB Nurse Member Role: Primary Care Nurse Name: Shawnee Lane RN Position: [facility] ED RN W/OE and Tasks Member Role: Primary Care Nurse Name: Erna Douglass RN Position: [facility] SN RN Member Role: Primary Care Nurse Name: Keyana Ndiaye RN Position: [facility] Hospital Rn Or Lpn Member Role: Primary Care Nurse Name: Anabella Nicholson RN Position: [facility] AMB Nurse Member Role: Primary Care Nurse Name: Brenda Tomas RN Position: [facility] Outreach Member Role: Primary Care Nurse Name: Ramona Ybarra RN Position: [facility] RN Member Role: Primary Care Nurse Address: Address: [address] [place] [id number] Name: Nancy Gallagher RN Position: [facility] Hospital Rn Or Lpn Member Role: Primary Care Nurse Name: Evelyn Allen RN Position: [facility] OB RN Member Role: Primary Care Nurse Name: Jackelin Watt RN Position: [facility] RN Member Role: Primary Care Nurse Name: Raymundo Elizabeth RN Position: [facility] SN RN Member Role: Primary Care Nurse Name: Opal Calderon RN Position: [facility] RN Member Role: Primary Care Nurse Name: Yadiel Warner RN Position: [facility] SN RN Member Role: Primary Care Nurse Care Team Related Persons Name: BARTOLOME IBRAHIM Address: home [address] [place], [place] Name: GIANLUCA IBRAHIM Address: [address] [place], [place] Name: ABBIE IBRAHIM Address: [address] [place] [address] Name: SIM CERDA Name: DIANE CERDA Address: [address] [place] [address] Name: SOLO CORRIGAN Address: [address] [place] [address] Name: SOLO FLORES Address: [address] [place], [place] Name: RAYMUNDO MAYFIELD Address: [address] [place] [address]
--- OUTSIDE RECORDS SUMMARY | 2024-01-27 11:33 | XMS_ITS | Continuity of Care Document ---
Author Organization [facility] Address [address] [place] [address]- Care Team Providers Care Aircraft Maintenance Manager Name Role Phone Dash WILCOX (OR), Paola Anderson Primary Care Physician Encounter [facility] Date(s): 07/15/23 - 07/15/[address] [address]- Discharge Disposition: A-D/C Home Attending Physician: Jamari Palacios MD Admitting Physician: Jamari Palacios MD Referring Physician: Not on Staff, Referring [...] tablet, 3 Refills, Maintenance, 08/17/22 15:43:00 EST, [facility] #[id number], 170, cm, 05/13/22 17:18:00 EDT, Height, 88.8, kg, 05/13/22 17:18:00 EDT, Dry Weight Start Date: 08/17/22 Status: Ordered Ativan 1 mg oral tablet 1 tablet = 1 mg, By Mouth, 3 times a day, PRN for anxiety, # 11 tablet, 0 Refills, Maintenance, 07/15/23 11:42:00 EDT, Tablet, [facility] #[id number], Partial fill upon patient request if the [...] 01/08/21 13:59:00 EDT, Route to Pharmacy Electronically, [facility] #[id number], Partial fill upon patient request if the prescription is for a sched... Start Date: 01/08/21 Status: Ordered Flonase 50 mcg/inh nasal spray 2 sprays, Nares, Both, 2 times a day, PRN Congestion, # 16 Gm, 0 Refills, Maintenance, 08/20/20 11:17:00 EST, [place], [facility] #[id number], Partial fill upon patient request if the prescriptionis for a schedule II opioid drug., 170, cm, 2... Start Date: 08/20/20 Status: Ordered gabapentin 300 mg oral capsule See Instructions, 1 cap in the AM, 2 in the afternoon and 2 at bedtime, # 1 each, Refills 4, Tot. Refills 4, Maintenance, 11/11/22 15:13:00 EST, Instructions Replace Required Details, Route to Pharmacy Electronically, [facility] #[id number], Part... Start Date: 11/11/22 Status: Ordered Insulin [...] 05/14/23 20:59:00 EDT, Route to Pharmacy Electronically, [facility] #[id number], Partial fill upon patient request if the [...] 0 Refills, Maintenance, 05/13/23 10:33:00 EDT, Tablet, [facility] #[id number], Partial fill upon patient request if the prescription is for a schedule II opioid drug., 1... Start Date: 05/13/23 Stop Date: 05/16/23 Status: Ordered ondansetron 4 mg oral tablet, disintegrating 1 tablet = 4 mg, By Mouth, Every 8 hours, PRN Nausea & Vomiting, for 10 days, # 30 tablet, 0 Refills, Acute 07/25/23 8:30:00 EST, 07/15/23 8:30:00 EDT, Tablet, [facility] #[id number], Partial fill upon patient request if the prescription is for a... Start Date: 07/15/23 Stop Date: 07/25/23 Status: Ordered prazosin 2 mg oral capsule 2 capsule = 4 mg, By Mouth, Daily at bedtime, if PO intake is low or BP low below 110/70 only take one cap, # 60 capsule, 4 Refills, Maintenance, 11/11/22 15:17:00 EST, [facility] #[id number], Partial fill upon patient request if the [...] 03/10/23 15:36:00 EDT, Route to Pharmacy Electronically, [facility] #[id number], Partial fill upon patient request if the [...] Refills, Soft Stop, 05/27/23 14:16:00 EDT, Powder, [facility] #[id number], Partial fill upon patient... Start Date: 05/27/23 Status: Ordered spironolactone 25 mg oral tablet 25 mg, 1, tablet, By Mouth, Daily, # 30 tablet, Refills 3, Tot. Refills 3, Maintenance, 05/14/23 20:55:00 EDT, Route to Pharmacy Electronically, [facility] #[id number], Partial fill upon patientrequest if the prescription [...] [Reference Range]: 1 2 Height 170 cm (07/15/23 11:57 AM) 170 cm (07/15/23 9:50 AM) Weight 94.5 kg (07/15/23 11:57 AM) 94.5 kg (07/15/23 9:50 AM) Oxygen Saturation [94-100 %] 96 % (07/15/23 9:50 AM) 98 % (07/15/23 9:50 AM) Pulse Rate [55-90 bpm] 110 bpm *H* (07/15/23 9:50 AM) 97 bpm *H* (07/15/23 9:50 AM) Blood Pressure [90-138/55-84 mm Hg] 119/ 83mm Hg (07/15/23 9:50 AM) Respiratory Rate [16-30 br/min] 20 br/mi n (07/15/23 9:50 AM) 20 br/min (07/15/23 9:50 AM) Temperature [96.8-100.4 DegF] 98.2 DegF (07/15/23 9:50 AM) Mode of Delivery (Oxygen) Room air (07/15/23 9:50 AM) Room air (07/15/23 9:50 AM) Temperature Route Oral (07/15/23 9:50 AM) Dry Weight 94.5 kg (07/15/23 11:57 AM) 94.5 kg (07/15/23 9:50 AM) Social History Social History Type Response [...] Unknown Unknown Active Un known Note * Jamari Palacios MD: PERFORM Event Display: Patient Education Leaflets Authored Date: [id number] Heart Palpitations ?? [id number] Heart Palpitations Palpitations are the feeling that your heart is beating hard, fast, or irregular. Some describe it as pounding, flip-flopping in the chest, or skipped beats. Palpitations may occur in someone with heart disease. But they can also occur in a healthy person. Heart-related causes: ??? Heart rhythm problem (arrhythmia) ??? Heart valve disease ??? Disease of the heart muscle (cardiomyopathy) ??? Coronary artery disease ??? High blood pressure Ucc-gkxjp-yhrehbg causes: ??? Certain medicines such as asthma inhalers and decongestants ??? Some herbal supplements, energydrinks and pills, and weight loss pills ??? Illegal stimulant drugs such as cocaine, crank, methamphetamine, PCP, and ecstasy ??? Caffeine, alcohol, and tobacco ??? Health conditions such as thyroid disease, anemia, anxiety, and panic disorder Sometimes the cause can't be found. Home care Follow these home care tips: ??? Don't use too much caffeine, alcohol, or tobacco, or any stimulantdrugs. ??? Tell your doctor about any prescription or refb-uat-fwhnxyg or herbal medicines you take. ?? Follow-up care ??? Follow up with your doctor, or as advised. ?? Call 911 This is the fastest and safest way to get to the emergency department. The paramedics can also start treatment on the way to the hospital, if needed. Don't wait until your symptoms are severe to call 911. These are reasons to call 911: ??? Chest pain ??? Shortness of breath ??? Feeling lightheaded, faint, or dizzy, or losing consciousness ??? Veryirregular heartbeat ??? Rapid heartbeat that makes you uncomfortable ??? Slower than usual heart rate along with symptoms ??? Chest pain with weakness, dizziness,??heavy sweating, nausea, or vomiting??? Extreme drowsiness, confusion, or weakness ??? Weakness of an arm or leg, or on one side of theface ??? Trouble with speech or vision ?? When to seek medical advice Call your healthcare provider right away if you have palpitations that last longer than normal, or are different from your past palpitations. ?? Last Reviewed Date: 2021 ?? 2132-0242 The [employer]. All rights reserved. This information is not intended as a substitute for professional medical care. Always follow your healthcare professional's instructions. ?? Patient Care team information Care Team Personnel Name: Dash WILCOX (OR) , Paola Anderson Position: [facility] Outreach Member Role: PCP Address: Address: [address] [place] [phone] [place] Name: Daina Ibrahim RN Position: [facility] ED RN W/OE and Tasks Member Role: Primary Care Nurse Name: Madeline Baird RN Position: [facility] ED RN W/OE and Tasks Member Role: Primary Care Nurse Name: Teresa Carpio Position: [facility] RN Member Role: Primary Care Nurse Name: Inge Elizabeth RN Position: [facility] SN RN Member Role: Primary Care Nurse Name: Kelley Prasad RN Position: [facility] RN Member Role: Primary Care Nurse Name: Cindy Medeiros RN Position: [facility] RN Member Role: Primary Care Nurse Name: Linnette De La O RN Position: [facility] SHOE SALESMAN Member Role: Primary Care Nurse Name: Alina Castillo NP Position: [facility] Associate Professional Member Role: Primary Care Nurse Address: Address: [address] [place] [address]- [place] Name: Mary Anne Kilpatrick RN Position: [facility] MR W/ Merge Member Role: Primary Care Nurse Name: Nicole Hernández RN Position: [facility] RN Member Role: Primary Care Nurse Name: Lindsay Srinivasan CNM Position: [facility] Associate Account Director Member Role: Primary Care Nurse Address: Address: [address] [place] [address] [place] [address]- [place] Name: Larissa Olson [place] Position: [facility] RN Member Role: Primary Care Nurse Name: Karen Roa RN Position: [facility] ED RN W/OE and Tasks Member Role: Primary Care Nurse Name: Mary Alice Stevens RN Position: [facility] RN Member Role: Primary Care Nurse Name: Beverly Grey Position: [facility] RN Member Role: Primary Care Nurse Name: Alexy Geronimo RN Position: [facility] RN Member Role: Primary Care Nurse Name: Raúl Rudolph DO Position: [facility] MEDIA TRAFFIC MANAGER MD Member Role: [employer] MEDIA TRAFFIC MANAGER Physician Address: Address: [address] [facility] [place] [address]- [place] Name: Evelyn Haynes RN Position: [facility] RN Member Role: Primary Care Nurse Name: Crissy Metzger RN Position: [facility] RN Member Role: Primary Care Nurse Name: Elisa Gilbert RN Position: [facility] RN Member Role: Primary Care Nurse Name: Corina Solorio RN Position: [facility] AMB Nurse Member Role: Primary Care Nurse Name: Shawnee Lane RN Position: [facility] ED RN W/OE and Tasks Member Role: Primary Care Nurse Name: Erna Douglass RN Position: [facility] SN RN Member Role: Primary Care Nurse Name: Keyana Ndiaye RN Position: [facility] [employer] Counter Sales Person Member Role: Primary Care Nurse Name: Anabella Nicholson RN Position: [facility] AMB Nurse Member Role: Primary Care Nurse Name: Brenda Tomas RN Position: [facility] Outreach Member Role: Primary Care Nurse Name: Ramona Ybarra RN Position: [facility] RN Member Role: Primary Care Nurse Address: Address: [address] [place] [address]- [place] Name: Nancy Gallagher RN Position: [facility] [employer] Counter Sales Person Member Role: Primary Care Nurse Name: Evelyn Allen RN Position: [facility] OB RN Member Role: Primary Care Nurse Name: Jackelin Watt RN Position: [facility] RN Member Role: Primary Care Nurse Name: Raymundo Elizabeth RN Position: [facility] SN RN Member Role: Primary Care Nurse Name: Opal Calderon RN Position: [facility] RN Member Role: Primary Care Nurse Name: Yadiel Warner RN Position: [facility] SN RN Member Role: Primary Care Nurse Name: Rachele Thapa RN Position: [facility] ED RN W/OE and Tasks Member Role: Patient Care Provider Name: Che Meredith Position: [facility] ED TA [facility] Member Role: Patient Care Provider Name: Jamari Palacios MD Position: [facility] ED Medicine MD Member Role: Admitting Physician Address: Address: [address] [place] [address] [place] [address]- [place] Care Team Related Persons Name: BARTOLOME IBRAHIM Address: [address] [place], [place] Name: GIANLUCA IBRAHIM Address: home [address] [place] [address] Name: ABBIE IBRAHIM Address: [address] [place], [place] Name: SIM CERDA Name: DIANE CERDA Address: [address] [place] [address] Name: SOLO CORRIGAN Address: [address] [place], [place] Name: SOLO FLORES Address: [address] [place], [place] Name: RAYMUNDO MAYFIELD Address: [address] [place] [address]
--- OUTSIDE RECORDS SUMMARY | 2024-01-27 11:33 | XMS_ITS | Continuity of Care Document ---
Author Organization [facility] Address [address] [place] [address]- Care Team Providers Care Spa Manager/Esthetician Name Role Phone Agustín Faria MD Primary Care Physician Encounter [facility] Date(s): 09/11/22 - 10/11/[address] [id number] Attending Physician: Maximo Cano Admitting Physician: AdmMaximo [...] tablet, 3 Refills, Maintenance, 08/17/22 15:43:00 EST, [facility] #[id number], 170, cm, 05/13/22 17:18:00 EDT, Height, 88.8, [...] tablet, 4 Refills, Maintenance, 09/10/22 15:48:00 EST, [facility] #[id number], Partial fill upon patient request if the prescription is for a schedule II opioid drug., 170, cm, 05/13/22 17:18:00 ED... Start Date: 09/10/22 Stop Date: 02/07/23 Status: Ordered busPIRone 15 mg oral tablet 1 tablet = 15 mg, By Mouth, 2 times a day, # 60 tablet, 4 Refills, Maintenance, 09/10/22 15:45:00 EST, Tablet, [facility] #[id number], Partial fill upon patient request if the prescription is for a schedule II opioid drug., 170, cm, 05/13/22 17:1... Start Date: 09/10/22 Stop Date: 02/07/23 Status: Ordered famotidine 20 mg oral tablet 20 mg, 1, tablet, By Mouth, 2 times a day, # 180 tablet, Refills 0, Tot. Refills 0, Maintenance, 01/08/21 13:59:00 EDT, Route to Pharmacy Electronically, [facility] #[id number], Partial fill upon patient request if the prescription is for a sched... Start Date: 01/08/21 Status: Ordered Flonase 50 mcg/inh nasal spray 2 sprays, Nares, Both, 2 times a day, PRN Congestion, # 16 Gm, 0 Refills, Maintenance, 08/20/20 11:17:00 EST, [place], [facility] #[id number], Partial fill upon patient request if the prescriptionis for a schedule II opioid drug., 170, cm, ... Start Date: 08/20/20 Status: Ordered gabapentin 300 mg oral capsule 300 mg, 1, capsule, By Mouth, 2 times a day, # 60 capsule, Refills 4, Tot. Refills 4, Maintenance, 09/10/22 15:49:00 EST, Route to Pharmacy Electronically, [facility] #[id number], Partial fill upon patient request if the [...] 09/25/22 15:38:00 EST, Route to Pharmacy Electronically, [facility] #[id number], Partial fill upon patient request if the prescription is for a sched... Start Date: 09/25/22 Stop Date: 09/20/23 Status: Ordered KlonoPIN 1 mg oral tablet 1 tablet = 1 mg, By Mouth, 2 times a day, dose is BID, # 60 tablet, 3 Refills, Maintenance, 09/10/22 15:45:00 EST, [facility] #[id number], NO EARLY REFILLS, 170, cm, 05/13/22 17:18:00 [...] 3 Refills, Maintenance, 09/13/22 16:21:00 EST, Tablet, [facility] #[id number], Partial fill upon patient request if the prescription is for a schedule II opioid dr... Start Date: 09/13/22 Stop Date: 09/08/23 Status: Ordered nitroglycerin 0.4 mg sublingual tablet 1 tablet, Sublingual, Every 5 minutes, PRN NEEDED FOR CHEST PAIN MAX 3 DOSES IN 15 MINUTES IF PAIN PERSISTS CALL 911, # 100 tablet, 3 Refills, Maintenance, 08/17/22 15:44:00 EST, [facility] #[id number], 170, cm, 05/13/22 17:18:00 EDT, Height,... Start Date: 08/17/22 Status: Ordered ondansetron 8 mg oral tablet, disintegrating 1 tablet = 8 mg, By Mouth, 3 times a day, PRN Nausea & Vomiting, # 30 tablet, 0 Refills, Maintenance, 12/26/20 12:55:00 EDT, [facility] #[id number], Partial fill upon patient request if the prescription is for a schedule II opioid drug., 170, cm,... Start Date: 12/26/20 Status: Ordered oxyCODONE 10 mg oral tablet = 10 mg, By Mouth, Every 8 hours, as needed; on a 15/month taper, # 60 tablet, 0 Refills, Maintenance, 03/24/21 11:54:00 EDT, Tablet, [facility] #[id number], Partial fill upon patient request ifthe prescription [...] 60 capsule, 4 Refills, Maintenance, 09/10/22 15:46:00 EST, [facility] #[id number], Partial fill upon patient request if the [...] Refills, Soft Stop, 04/20/22 10:54:00 EDT, Powder, [facility] #[id number], Partial fill upon patient... Start Date: 04/20/22 Status: Ordered spironolactone 25 mg oral tablet 25 mg, 1, tablet, By Mouth, Daily, # 90 tablet, Refills 3, Tot. Refills 3, Maintenance, 09/13/22 16:11:00 EST, Route to Pharmacy Electronically, [facility] #[id number], Partial fill upon patientrequest if the prescription is for a schedule II op... Start Date: 09/13/22 Stop Date: 09/08/23 Status: Ordered traZODone 150 mg oral tablet 1 tablet = 150 mg, By Mouth, Daily at bedtime, # 30 tablet, 4 Refills, Maintenance, 09/10/22 15:47:00 EST, Tablet, [facility] #[id number], Partial fill upon patient request if the [...] Team Personnel Name: Daina Ibrahim RN Position: [facility] ED RN W/OE and Tasks Member Role: Primary Care Nurse Name: Madeline Baird RN Position: [facility] ED RN W/OE and Tasks Member Role: Primary Care Nurse Name: Teresa Carpio Position: [facility] RN Member Role: Primary Care Nurse Name: Inge Elizabeth RN Position: [facility] RN Member Role: Primary Care Nurse Name: Kelley Prasad RN Position: [facility] RN Member Role: Primary Care Nurse Name: Cindy Medeiros RN Position: [facility] RN Member Role: Primary Care Nurse Name: Linnette De La O RN Position: [facility] SOLAR PROJECT COORDINATION SPECIALIST No Tools Member Role: Primary Care Nurse Name: Alina Castillo NP Position: [facility] Associate Professional Member Role: Primary Care Nurse Address: Address: [address] [place] [address]- Name: Mary Anne Kilpatrick RN Position: [facility] MR W/ Merge Member Role: Primary Care Nurse Name: Agustín Faria MD Position: [facility] Outreach Member Role: PCP Address: Address: [address] [place] [address] [address] [place] [address]- [place] Name: Nicole Hernández RN Position: [facility] RN Member Role: Primary Care Nurse Name: Douglas Harris Position: [facility] Cardio/Pulm Mgr ([facility]) Member Role: Primary Care Nurse Name: Lindsay Srinivasan CNM Position: [facility] Rn Forensic Member Role: Primary Care Nurse Address: Address: [address] [place] [address]- [place] Name: Larissa Klein Position: [facility] RN Member Role: Primary Care Nurse Name: Karen Roa RN Position: [facility] ED RN W/OE and Tasks Member Role: Primary Care Nurse Name: Mary Alice Stevens RN Position: [facility] RN Member Role: Primary Care Nurse Name: Beverly Grey Position: [facility] RN Member Role: Primary Care Nurse Name: Alexy Geronimo RN Position: [facility] RN Member Role: Primary Care Nurse Name: Raúl Rudolph DO Position: [facility] REGULATORY AGENCY DIRECTOR MD Member Role: [employer] REGULATORY AGENCY DIRECTOR Physician Address: Address: [address] [place] [address]- [place] Name: Evelyn Haynes RN Position: [facility] RN Member Role: Primary Care Nurse Name: Crissy Metzger RN Position: [facility] RN Member Role: Primary Care Nurse Name: Elisa Gilbert RN Position: [facility] RN Member Role: Primary Care Nurse Name: Corina Solorio RN Position: [facility] PCO RN Member Role: Primary Care Nurse Name: Shawnee Lane RN Position: [facility] ED RN W/OE and Tasks Member Role: Primary Care Nurse Name: Erna Douglass RN Position: [facility] SN RN Member Role: Primary Care Nurse Name: Keyana Ndiaye RN Position: [facility] Hospital Forge Hand Member Role: Primary Care Nurse Name: Yudy Trujillo RN Position: [facility] RN Member Role: Primary Care Nurse Name: Anabella Nicholson RN Position: [facility] AMB Nurse Member Role: Primary Care Nurse Name: Ramona Ybarra RN Position: [facility] RN Member Role: Primary Care Nurse Address: Address: [address] [place] [address]- [place] Name: Elliott THOMPSON, Nancy Joaquin Position: [facility] Hand Member Role: Primary Care Nurse Name: Evelyn Allen RN Position: [facility] OB RN Member Role: Primary Care Nurse Name: Jackelin Watt RN Position: [facility] RN Member Role: Primary Care Nurse Name: Raymundo Elizabeth RN Position: [facility] SN RN Member Role: Primary Care Nurse Name: Opal Calderon RN Position: [facility] RN Member Role: Primary Care Nurse Name: Yadiel Warner RN Position: [facility] SN RN Member Role: Primary Care Nurse Care Team Related Persons Name: BARTOLOME IBRAHIM Address: home [address] [place], [place] Name: GIANLUCA IBRAHIM Address: home [address] [place] [address] Name: ABBIE IBRAHIM Address: home [address] [place], [place] Name: SIM CERDA Name: DIANE CERDA Address: [address] [address] Name: SOLO CORRIGAN Address: home [address] [place] [address] Name: SOLO FLORES Address: home [address] [place] [address] Name: RAYMUNDO MAYFIELD Address: home [address] [place] [address]
--- OUTSIDE RECORDS SUMMARY | 2024-01-27 11:33 | XMS_ITS | Continuity of Care Document ---
Author Organization [facility] Address [address] [place] [address]- Care Team Providers Care Reroller Hand Name Role Phone Dash WILCOX ([place]), Paola Anderson Primary Care Physician Encounter [facility] Date(s): 09/17/23 - 11/25/[address] [address]- Attending Physician: Thai OCAMPO, Vanesa Pathak Referring Physician: Dash WILCOX (PR) , Paola Anderson Allergies, Adverse Reactions, Alerts Substance Reaction Severity [...] 0 Refills, Maintenance, 07/15/23 11:42:00 EDT, Tablet, [facility] #[id number], Partial fill upon patient request if the [...] 4 Refills, Maintenance, 08/10/23 14:21:00 EST, Tablet, [facility] #[id number], Partial fill upon patient request if the prescription is fora schedule II opioid drug., 170, cm, 08/05/23 3:21:... Start Date: 08/10/23 Stop Date: 01/07/24 Status: Ordered Metoprolol Tartrate 100 mg oral tablet 1 tablet, By Mouth, 2 times a day, # 60 tablet, 4 Refills, Maintenance, 10/11/23 9:06:00 EST, [facility] #[id number], 170, cm, 09/26/23 11:43:00 EST, Height, 93, [...] 0 Refills, Maintenance, 05/13/23 10:33:00 EDT, Tablet, [facility] #[id number], Partial fill upon patient request if the prescription is for a schedule II opioid drug., 1... Start Date: 05/13/23 Stop Date: 05/16/23 Status: Ordered ondansetron 4 mg oral tablet, disintegrating 1 tablet = 4 mg, By Mouth, Every 6 hours, PRN as needed for nausea/vomiting, # 14 tablet, 0 Refills, Maintenance, 10/13/23 13:52:00 EST, DIS Tablet, [facility] #[id number], Partial fill upon patient request if the prescription is for a schedule I... Start Date: 10/13/23 Status: Ordered potassium chloride 10 mEq oral tablet, extended release 2 tablet = 20 mEq, By Mouth, Daily, # 14 tablet, 0 Refills, Soft Stop, 08/27/23 8:49:00 EST, ER Tablet, [facility] #[id number], Partial fill upon patient request if the [...] capsule, 4 Refills, Maintenance, 08/10/23 14:14:00 EST, [facility] #[id number], Partial fill upon patient request if the [...] Refills, Soft Stop, 05/27/23 14:16:00 EDT, Powder, [facility] #[id number], Partial fill upon patient... Start Date: 05/27/23 Status: Ordered spironolactone 25 mg oral tablet 1, tablet, By Mouth, Daily, # 30 tablet, Refills 0, Maintenance, 09/10/23 16:43:00 EST, Route to Pharmacy Electronically, [facility] #[id number], 170, cm, 08/27/23 7:32:00 EST, Height, 99, kg, 08/18/23 9:13:00 EST, Dry Weight Start Date: 09/10/23 Status: Ordered Wellbutrin SR 100 mg/12 hours oral tablet, extended release 1 tablet = 100 mg, By Mouth, Daily, # 30 tablet, 4 Refills, Maintenance, 08/10/23 14:26:00 EST, [facility] #[id number], Partial fill upon patient request if the [...] Dash WILCOX (PR) , Paola Anderson Position: [facility] Outreach Member Role: PCP Address: Address: [address] [place] [phone] [place] Name: Daina Ibrahim RN Position: [facility] ED RN W/OE and Tasks Member Role: Primary Care Nurse Name: Madeline Baird RN Position: [facility] ED RN W/OE and Tasks Member Role: Primary Care Nurse Name: Teresa Carpio Position: [facility] RN Member Role: Primary Care Nurse Name: Inge Elizabeth RN Position: [facility] SN RN Member Role: Primary Care Nurse Name: Kelley Prasad RN Position: [facility] ED RN W/OE and Tasks Member Role: Primary Care Nurse Name: Cindy Medeiros RN Position: [facility] RN Member Role: Primary Care Nurse Name: Linnette De La O RN Position: [facility] DISTRICT MANAGER MAJOR ACCOUNTS SALES Member Role: Primary Care Nurse Name: Alina Castillo NP Position: [facility] Associate Professional Member Role: Primary Care Nurse Address: Address: [address] [place] [address]- Name: Gab Velarde RN Position: [facility] RN Member Role: Primary Care Nurse Name: Mary Anne Kilpatrick RN Position: [facility] MR W/ Merge Member Role: Primary Care Nurse Name: Kira Medellin RN Position: [facility] RN Member Role: Primary Care Nurse Name: Nicole Hernández RN Position: [facility] RN Member Role: Primary Care Nurse Name: Lindsay Srinivasan CNM Position: [facility] Government Program Manager Member Role: Primary Care Nurse Address: Address: [address] [place] [address]- [place] Name: Bea Brown RN Position: [facility] RN Member Role: Primary Care Nurse Name: Kiana Sabillon RN Position: [facility] RN Member Role: Primary Care Nurse Name: Larissa Olson [place] Position: [facility] RN Member Role: Primary Care Nurse Name: Karen Roa RN Position: [facility] ED RN W/OE and Tasks Member Role: Primary Care Nurse Name: Mary Alice Stevens RN Position: [facility] RN Member Role: Primary Care Nurse Name: Beverly Grey Position: [facility] RN Member Role: Primary Care Nurse Name: Lani Gray RN Position: [facility] RN Member Role: Primary Care Nurse Name: Alexy Geronimo RN Position: [facility] ED RN W/OE and Tasks Member Role: Primary Care Nurse Name: Raúl Rudolph DO Position: [facility] CONTENT PRODUCTION SPECIALIST MD Member Role: [employer] CONTENT PRODUCTION SPECIALIST Physician Address: Address: [address] [place] [address]- Name: Evelyn Haynes RN Position: [facility] RN Member Role: Primary Care Nurse Name: Crissy Metzger RN Position: [facility] RN Member Role: Primary Care Nurse Name: Elisa Gilbert RN Position: [facility] RN Member Role: Primary Care Nurse Name: Corina Solorio RN Position: [facility] SN RN Member Role: Primary Care Nurse Name: Shawnee Lane RN Position: [facility] RN Supv Member Role: Primary Care Nurse Name: Ana Estrada RN Position: [facility] RN Member Role: Primary Care Nurse Name: Keyana Ndiaye RN Position: [facility] Hospital Primary Health Care Nurse Member Role: Primary Care Nurse Name: Grace Verma RN Position: [facility] RN Member Role: Primary Care Nurse Name: Anabella Nicholson RN Position: [facility] AMB Nurse Member Role: Primary Care Nurse Name: Brenda Tomas RN Position: [facility] Outreach Member Role: Primary Care Nurse Name: Ramona Ybarra RN Position: [facility] RN Member Role: Primary Care Nurse Address: Address: [address] [place] [address]- [place] Name: Nancy Gallagher RN Position: [facility] Primary Health Care Nurse Member Role: Primary Care Nurse Name: Evelyn Allen RN Position: [facility] OB RN Member Role: Primary Care Nurse Name: Jackelin Watt RN Position: [facility] RN Member Role: Primary Care Nurse Name: Raymundo Elizabeth RN Position: [facility] SN RN Member Role: Primary Care Nurse Name: Opal Calderon RN Position: [facility] RN Member Role: Primary Care Nurse Name: Timmy RNYadiel Position: [facility] SN RN Member Role: Primary Care Nurse Care Team Related Persons Name: BARTOLOME IBRAHIM Address: [address] [place] [address] Name: GIANLUCA IBRAHIM Address: [address] [address] Name: ABBIE IBRAHIM Address: [address] [place] [address] Name: SIM CERDA Name: DIANE CERDA Address: [address] [address] Name: SOLO CORRIGAN Address: home [address] [place] [address] Name: SOLO FLORES Address: home [address] [place] [address] Name: RAYMUNDO MAYFIELD Address: [address] [place] [address]
--- OUTSIDE RECORDS SUMMARY | 2024-01-27 11:33 | XMS_ITS | Continuity of Care Document ---
Author Organization [facility] Address [address] [place] [address]- Care Team Providers Care Viscosity Worker Name Role Phone Dash WILCOX (NM), Paola Anderson Primary Care Physician Encounter [facility] Date(s): 10/19/23 - 12/01/[address] [address]- Discharge Disposition: A-D/C Home Attending Physician: Deana Lala MD Admitting Physician: Arsen Geronimo DO Referring Physician: Not on Staff, Referring [...] Note: vis 4Early/Late Reason: Other : Medications Acetaminophen Tablet 650 mg, Tablet, By Mouth, Every 4 hours, PRN for Pain , Mild, Temperature Greater than 100.5, Routine, 11/05/23 12:15:00 EST Start Date: 11/05/23 Stop Date: 12/01/23 Status: Discontinued Ambien 5 mg oral tablet = 5 mg, By Mouth, Daily at bedtime, PRN Sleep, # 7 tablet, 0 Refills, Acute 12/02/23 9:36:00 EDT, 12/01/23 9:35:00 EDT, Tablet, [facility] #[id number], Partial fill upon patient request if the prescription is for a schedule II opioid drug., 170,... Start Date: 12/01/23 Stop Date: 12/02/23 Status: Ordered Aspirin Enteric Coated 81 mg oral delayed release tablet 1 tablet = 81 mg, By Mouth, Daily, Maintenance, 08/18/23 8:46:00 EST Start Date: 08/18/23 Status: Ordered cefdinir 300 mg oral capsule 1 capsule = 300 mg, By Mouth, Every 12 hours, for 5 days, # 10 capsule, 0 Refills, Acute 12/06/23 9:38:00 EDT, 12/01/23 9:38:00 EDT, Capsule, [facility] #[id number], Partial fill upon patient request if the prescription is for a schedule II opioi... Start Date: 12/01/23 Stop Date: 12/06/23 Status: Ordered cromolyn 20 mg/mL oral solution 10 mL = 200 mg, By Mouth, 4 times a day, 30 minutes before meals and at bedtime, Maintenance, 08/18/23 8:45:00 EST, Solution Start Date: 08/18/23 Status: Ordered Dilaudid 2 mg oral tablet 2 mg, Tablet, By Mouth, Every 12 hours, PRN for Pain , Moderate, Routine, 11/09/23 19:00:00 EST Start Date: 11/09/23 Stop Date: 12/01/23 Status: Discontinued Dilaudid 2 mg oral tablet = 2 mg, By Mouth, Every 12 hours, PRN Pain , Moderate, for 7 days, # 12 tablet, 0 Refills, Acute 12/08/23 9:35:00 EDT, 12/01/23 9:35:00 EDT, Tablet, [facility] #[id number], Partial fill upon patient request if the prescription is for a schedule I... Start Date: 12/01/23 Stop Date: 12/08/23 Status: Ordered Fioricet Tablet 1 tablet, Tablet, By Mouth, Every 4 hours, PRN for Headache, Routine, 11/13/23 11:53:00 EST Notes: acetaminophen/butalbital/caffeine 325 mg-50 mg-40 mg oral tablet Start Date: 11/13/23 Stop Date: 12/01/23 Status: Discontinued FLUoxetine 20 mg oral capsule 40 mg, 2, capsule, By Mouth, Daily, Maintenance, 08/18/23 8:43:00 EST Start Date: 08/18/23 Status: Ordered gabapentin 300 mg oral capsule 300 mg, 1, capsule, By Mouth, 2 times a day, Refills 0, Maintenance, 08/18/23 8:44:00 EST, Partial fill upon patient request if the prescription is for a schedule II opioid drug. Start Date: 08/18/23 Status: Ordered ibuprofen 600 mg oral tablet 600 mg, Tablet, By Mouth, 3 times a day, to be given with fiorcet for headache, PRN for Headache, Routine, 11/14/23 12:14:00 EST Start Date: 11/14/23 Stop Date: 12/01/23 Status: Discontinued KlonoPIN 1 mg oral tablet 1 tablet = 1 mg, By Mouth, 2 times a day, # 60 tablet, 4 Refills, Maintenance, 08/10/23 14:21:00 EST, Tablet, [facility] #[id number], Partial fill upon patient request if the prescription is fora schedule II opioid drug., 170, cm, 08/05/23 3:21:... Start Date: 08/10/23 Stop Date: 01/07/24 Status: Ordered lactulose 10 gm/15 ml oral syrup 30 mL = 20 Gm, By Mouth, 4 times a day, for 14 days, # 1,680 mL, 0 Refills, Acute 12/15/23 9:35:00 EDT, 12/01/23 9:35:00 EDT, Syrup, [facility] #[id number], Partial fill upon patient request if the prescription is for a schedule II opioid drug.,... Start Date: 12/01/23 Stop Date: 12/15/23 Status: Ordered metoprolol 100 mg oral tablet 100 mg, Tablet, By Mouth, 12/01/23 9:00:00 EDT Start Date: 12/01/23 Stop Date: 12/01/23 Status: Completed Metoprolol Tartrate 100 mg oral tablet 1 tablet, By Mouth, 2 times a day, # 60 tablet, 4 Refills, Maintenance, 10/11/23 9:06:00 EST, [facility] #[id number], 170, cm, 09/26/23 11:43:00 EST, Height, 93, kg, 09/26/23 11:43:00 EST, Dry Weight Start Date: 10/11/23 Status: Ordered MiraLax oral powder for reconstitution = 17 Gm, By Mouth, Daily, dissolve in 4 to 8 oz of beverage, # 238 Gm, 0 Refills, Acute 12/02/23 9:46:00 EDT, 12/01/23 9:46:00 EDT, REC Powder, [facility] #[id number], Partial fill upon patient request if the prescription is for a schedule II opi... Start Date: 12/01/23 Stop Date: 12/02/23 Status: Ordered montelukast 10 mg oral tablet 10 mg, 1, tablet, By Mouth, Daily in PM, Maintenance, 08/18/23 8:47:00 EST Start Date: 08/18/23 Status: Ordered ondansetron 4 mg oral tablet, disintegrating 1 tablet = 4 mg, By Mouth, Every 6 hours, PRN as needed for nausea/vomiting, # 14 tablet, 0 Refills, Maintenance, 10/13/23 13:52:00 EST, DIS Tablet, [facility] #[id number], Partial fill upon patient request if the prescription is for a schedule I... Start Date: 10/13/23 Status: Ordered prazosin 2 mg oral capsule 1 capsule = 2 mg, By Mouth, Daily at bedtime, if PO intake is low or BP low below 110/70 only take one cap, # 30 capsule, 4 Refills, Maintenance, 08/10/23 14:14:00 EST, [facility] #[id number], Partial fill upon patient request if the prescription... Start Date: 08/10/23 Stop Date: 01/07/24 Status: Ordered Protonix 40 mg oral delayed release tablet = 40 mg, By Mouth, 2 times a day, # 60 tablet, 1 Refills, Maintenance, 08/27/23 8:49:00 EST, EC Tablet, 170, cm, 08/27/23 7:32:00 EST, Height, 99, kg, 08/18/23 9:13:00 EST, Dry Weight Start Date: 08/27/23 Status: Ordered simethicone 80 mg oral tablet, chewable 80 mg, Chew, 3 times a day, PRN, for 10 days, # 20 tablet, Refills 0, Tot. Refills 0, Acute 12/11/23 10:06:00 EDT, Gas, 12/01/23 10:06:00 EDT, Route to Pharmacy Electronically, [facility] #[id number], Partial fill upon patient request if the pres... Start Date: 12/01/23 Stop Date: 12/11/23 Status: Ordered Solu-CORTEF Act-O-Vial 100 mg injection See Instructions, use daily SQ for adrenal insufficiency. 14 mg qam and 7 mg qpm please provide extra 2 mg vial for stress dosing., # 8 each, 11 Refills, Soft Stop, 05/27/23 14:16:00 EDT, Powder, [facility] #[id number], Partial fill upon patient... Start Date: 05/27/23 Status: Ordered spironolactone 25 mg oral tablet 1, tablet, By Mouth, Daily, # 30 tablet, Refills 0, Maintenance, 09/10/23 16:43:00 EST, Route to Pharmacy Electronically, [facility] #[id number], 170, cm, 08/27/23 7:32:00 EST, Height, 99, kg, 08/18/23 9:13:00 EST, Dry Weight Start Date: 09/10/23 Status: Ordered Wellbutrin SR 100 mg/12 hours oral tablet, extended release 1 tablet = 100 mg, By Mouth, Daily, # 30 tablet, 4 Refills, Maintenance, 08/10/23 14:26:00 EST, [facility] #[id number], Partial fill upon patient request if the [...] tachycardia) Confirmed Active 1MRI compatible 2IAROGENIC Results Orders for Microbiology Reports Name Date Blood Culture #2 11/08/23 Blood Culture 11/08/23 Catheter Tip Culture 11/07/23 Blood Culture #2 11/06/23 Blood Culture 11/06/23 Blood Culture (BLOOD CULTURE) 11/05/23 Blood Culture #2 11/05/23 Blood Culture 11/05/23 Microbiology Reports TEST:Blood Culture, Second Order STATUS:Auth (Verified) BODY SITE: SOURCE:Blood COLLECTED DATE/TIME:11/08/23 8:15 AM Blood Culture, Second Order SPECIMEN DESCRIPTION : BLOOD SPECIAL REQUESTS : NONE CULTURE : NO GROWTH 5 DAYS. REPORT STATUS : FINAL 11/13/2023 TEST:Blood Culture STATUS:Auth (Verified) BODY SITE: SOURCE:Blood COLLECTED DATE/TIME:11/08/23 8:05 AM Blood Culture SPECIMEN DESCRIPTION : BLOOD L HAND SPECIAL REQUESTS : NONE CULTURE : NO GROWTH 5 DAYS. REPORT STATUS : FINAL 11/13/2023 TEST:Catheter Tip Culture STATUS:Auth (Verified) BODY SITE: SOURCE:PICC C COLLECTED DATE/TIME:11/07/23 11:28 AM Catheter Tip Culture SPECIMEN DESCRIPTION : PICC CATHETER TIP SPECIAL REQUESTS : NONE CULTURE : LESS THAN 15 CFU STREPTOCOCCUS PARASANGUINIS This isolate was identified using Maldi-TOF system SUSCEPTIBILITY TESTING NOT ROUTINELY PERFORMED ON THIS ISOLATE. REPORT STATUS : FINAL 11/11/2023 TEST:Blood Culture, Second Order STATUS:Auth (Verified) BODY SITE: SOURCE:Blood COLLECTED DATE/TIME:11/06/23 1:06 PM Blood Culture, Second Order SPECIMEN DESCRIPTION : BLOOD R WRIST SPECIAL REQUESTS : NONE CULTURE : STREPTOCOCCUS PARASANGUINIS This isolate was identified using Maldi-TOF system FOR SUSCEPTIBILITY RESULT REFER TO BLOOD CULTURE REPORT STATUS : FINAL 11/08/2023 TEST:Blood Culture STATUS:Auth (Verified) BODY SITE: SOURCE:Blood COLLECTED DATE/TIME:11/06/23 1:01 PM Blood Culture SPECIMEN DESCRIPTION : BLOOD R THUMB SPECIAL REQUESTS : CRITICAL VALUE CALLED AND VERIFIED BY READBACK FOR: GRAM POSITIVE COCCI IN BLOOD CULTURE TO P22, EMP [id number], BY TECH 187 AT 0835, 11/07/23 CULTURE : STREPTOCOCCUS PARASANGUINIS This isolate was identified using Maldi-TOF system FOR SUSCEPTIBILITY RESULT REFER TO BLOOD CULTURE REPORT STATUS : FINAL 11/08/2023 TEST:Blood Culture STATUS:Auth (Verified) BODY SITE: SOURCE:Blood COLLECTED DATE/TIME:11/05/23 8:55 PM Blood Culture SPECIMEN DESCRIPTION : BLOOD R WRIST SPECIAL REQUESTS : NONE CULTURE : STREPTOCOCCUS PARASANGUINIS This isolate was identified using Maldi-TOF system FOR SUSCEPTIBILITY RESULT REFER TO BLOOD CULTURE REPORT STATUS : FINAL 11/08/2023 TEST:Blood Culture, Second Order STATUS:Auth (Verified) BODY SITE: SOURCE:Blood COLLECTED DATE/TIME:11/05/23 12:07 PM Blood Culture, Second Order SPECIMEN DESCRIPTION : BLOOD R HAND SPECIAL REQUESTS : CRITICAL VALUE CALLED AND VERIFIED BY READBACK FOR: GRAM POSITIVE COCCI AND PCR RESULT TO [id number] P22 11/06/23 0906 BY TECH [id number] CULTURE : STREPTOCOCCUS PARASANGUINIS This isolate was identified using Maldi-TOF system Streptococcus species was identified by multiplex PCR. REPORT STATUS : FINAL 11/08/2023 ORGANISM STREPTOCOCCUS PARASANGUINIS This isolate was identified using Maldi-TOF system METHOD MIN. INHIB. CONC. (MCG/ML) CEFTRIAXONE SUSCEPTIBLE CEFTRIAXONE HUBER EQ 1UG/ML PENICILLIN INTERMEDIATE VANCOMYCIN SUSCEPTIBLE TEST:Blood Culture STATUS:Auth (Verified) BODY SITE: SOURCE:Blood COLLECTED DATE/TIME:11/05/23 12:05 PM Blood Culture SPECIMEN DESCRIPTION : BLOOD RT HAND SPECIAL REQUESTS : NONE CULTURE : STREPTOCOCCUS PARASANGUINIS This isolate was identified using Maldi-TOF system FOR SUSCEPTIBILITY RESULT REFER TO BLOOD CULTURE REPORT STATUS : FINAL 11/08/2023 Radiology Reports * Exam Date Time Procedure Performing Provider Status 11/12/23 11:35 AM Upper GI W/ KUB Ja Mcgraw Notes: (Upper GI W/ KUB) Reason For Exam: Other:;Other:EPIGASTRIC PAIN Addendum ADDENDUM: THIS ORDER WAS ACTIVATED UNDER THE WRONG FINANCIAL NUMBER. A NEW ORDER WILL BE ENTERED UNDER THE CORRECT ACCOUNT. Dictated By: Dictated Date/Time: Reviewed By: Daniel Longoria MD, V Signed By: Daniel Longoria MD, V Signed Date/Time: 11/15/23 11:00 am Transcribed By: ANNETTE Transcribed Date/Time: 11/15/23 10:16 am RESULT: XR Upper GI W/ KUB XR Upper GI W/ KUB INDICATION: Reason: Other:; Clinical Question(s): Other:; configuration of funduplication; Special Instructions: Needs Barium swallow Upper GI serires. To be done at [facility]; Order Comment: to be done [facility] COMPARISON: Barium swallow 11/07/2020 FLUOROSCOPY TIME: 3 minutes 06 seconds EXPOSURE: 2521.1 uGym2 (Dose Area Product) TECHNIQUE: Barium contrast upper GI examination was performed by Odell Vazquez PA-C. FINDINGS: Surgical clips are noted in the right upper quadrant. Dual lead AICD is seen Esophagus: Normal in contour and mucosal appearance. Tertiary contractions of the distal half of the esophagus are seen, some proximal escape the barium bolus noted. No hiatal hernia. Despite the useof simple provocative maneuvers, no gastroesophageal reflux was appreciated. A 13 mm barium tablet is impeded at the level of the midesophagus despite no evidence of discrete narrowing. No evidence of esophageal web or outpouching. No esophageal obstruction. Stomach: Fundal contour deformity consistent with status post Jimena fundoplication is appreciated,contrast seen entering the wrap to opacify a ovoid collection measuring roughly 0.7 cm in transverse dimension which retains contrast. Notably this is also appreciated on the previous study in 2020. There is prompt emptying into nondilated duodenum. No gastric outlet obstruction. Duodenum: Normal contour, distensibility and mucosal appearance. No evidence of duodenal ulcer or scarring. The ligament of Treitz is in the normal location. IMPRESSION: 1. Collection of contrast at the medial aspect of the wrap, differential includes fundal diverticulum, plication defect, or ulcer, although the latter is considered less likely as this finding is essentially unchanged from the previous exam 3 years ago. Additional characterization with endoscopy could be considered as indicated clinically. 2. Mild to moderate esophageal dysmotility. 3. Status post Jimena fundoplication. By undersigning and finalizing the report, the attending radiologist confirms he/she has personallyreviewed and interpreted the images and agrees with the description of the findings. I have personally reviewed the images and I agree with this report. WSN: [id number] Ordering Physician: Devon Jensen Dictated By: Grupo Burroughs Dictated Date/Time: 11/12/23 2:13 pm Reviewed By: Daniel Longoria MD, V Signed By: Daniel Longoria MD, V Signed Date/Time: 11/12/23 2:18 pm Transcribed By: DIANE Transcribed Date/Time: 11/12/23 1:08 pm * Exam Date Time Procedure Performing Provider Status 11/11/23 1:22 PM Abdomen AP Daina Cutler; Laquita ( Verified) Notes: (Abdomen AP) Reason For Exam: Pain RESULT: XR Abdomen AP XR Abdomen AP 1 view INDICATION/CLINICAL QUESTION: Reason: Pain; Clinical Question(s): Obstruction COMPARISON: 10/25/2023 FINDINGS: Supine AP view of the abdomen. Stomach and small bowel loops are nondistended. Moderate retention of stool throughout the colon. Right upper quadrant cholecystectomy clips. No evidence of pneumoperitoneum. No organomegaly, masses or calcifications. No acute bone findings. IMPRESSION: Constipation. No free air. No evidence for SBO. WSN: [id number] Ordering Physician: Devon Jensen Dictated By: Aleksandr Hopkins MD Dictated Date/Time: 11/11/23 7:10 pm Reviewed By: Aleksandr Hopkins MD Signed By: Aleksandr Hopkins MD Signed Date/Time: 11/11/23 7:10 pm Transcribed By: DIANE Transcribed Date/Time: 11/11/23 7:09 pm * Exam Date Time Procedure Performing Provider Status 11/08/23 1:[address] Lumbar Spine W/ Contrast Raciel Powell; Auth (Verified) Notes: (CT Lumbar Spine W/ Contrast) Reason For Exam: bacctermia;Fever RESULT: CT Lumbar Spine W/ Contrast CT of thoracic and lumbar spine with contrast INDICATION: Fever; Bacteremia, history of lumbar spine fusion surgery; Clinical Question(s): Disc Space Infection. TECHNIQUE: After 100 cc Omnipaque 300 administered intravenously, CT of the thoracic and lumbar spine were obtained per department protocol, reformatted with sagittal, axial and coronal planes. Soft tissue and bone algorithms were reformatted. Weight-based protocol using automatic tube modulation was used to optimize exposure parameters. COMPARISONS: CT of abdomen and pelvis on 11/06/2023. FINDINGS: The thoracic spine and the lumbar spine have a normal alignment. No fracture or subluxation. No osteolytic area is noted. Status post prior fusion surgery of L5-S1 vertebral bodies with partial obliteration of the intervertebral disc space. The rest of the intervertebral disc spaces of the thoracicand lumbar spine are well preserved. There is no epidural lesion or paravertebral soft tissue lesion. IMPRESSION: Status post prior fusion surgery of L5-S1 level with stable postoperative changes. Otherwise unremarkable thoracic and lumbar spine. WSN: [id number] Ordering Physician: Selina Marsh Dictated By: Hunter Coppola MD Dictated Date/Time: 11/08/23 4:29 pm Reviewed By: Hunter Coppola MD Signed By: Hunter Coppola MD Signed Date/Time: 11/08/23 4:29 pm Transcribed By: DIANE Transcribed Date/Time: 11/08/23 4:19 pm * Exam Date Time Procedure Performing Provider Status 11/08/23 1:[address] Thoracic Spine W/ Contrast Edison Powell; Auth (Verified) Notes: (CT Thoracic Spine W/ Contrast) Reason For Exam: Bacteremia, history of lumbar spine fusion surgery;Fever RESULT: CT Thoracic Spine W/ Contrast CT of thoracic and lumbar spine with contrast INDICATION: Fever; Bacteremia, history of lumbar spine fusion surgery; Clinical Question(s): Disc Space Infection. TECHNIQUE: After 100 cc Omnipaque 300 administered intravenously, CT of the thoracic and lumbar spine were obtained per department protocol, reformatted with sagittal, axial and coronal planes. Soft tissue and bone algorithms were reformatted. Weight-based protocol using automatic tube modulation was used to optimize exposure parameters. COMPARISONS: CT of abdomen and pelvis on 11/06/2023. FINDINGS: The thoracic spine and the lumbar spine have a normal alignment. No fracture or subluxation. No osteolytic area is noted. Status post prior fusion surgery of L5-S1 vertebral bodies with partial obliteration of the intervertebral disc space. The rest of the intervertebral disc spaces of the thoracicand lumbar spine are well preserved. There is no epidural lesion or paravertebral soft tissue lesion. IMPRESSION: Status post prior fusion surgery of L5-S1 level with stable postoperative changes. Otherwise unremarkable thoracic and lumbar spine. WSN: [id number] Ordering Physician: Selina Marsh Dictated By: Hunter Coppola MD Dictated Date/Time: 11/08/23 4:29 pm Reviewed By: Hunter Coppola MD Signed By: Hunter Coppola MD Signed Date/Time: 11/08/23 4:29 pm Transcribed By: DIANE Transcribed Date/Time: 11/08/23 4:19 pm * Exam Date Time Procedure Performing Provider Status 11/06/23 12:[address] Abdomen and Pelvi s W/O Contrast Liliya Lockwood (Verified) Notes: (CT Abdomen and Pelvis W/O Contrast) Reason For Exam: Fever RESULT: CT Abdomen and Pelvis W/O Contrast PROCEDURE: CT Abdomen and Pelvis W/O Contrast CLINICAL INDICATION: 43 years old Female with chronic abdominal pain of unclear etiology. Evaluate for kidney stones. TECHNIQUE: Helical 3 mm axial images obtained of the abdomen and pelvis without IV contrast. Coronal and sagittal reformations performed. Enteric contrast was given. Weight-based protocol using automatic tube modulation utilized to optimize exposure parameters. CTDIvol Body: 19.99 mGy, DLP Body: 1025 mGy*cm. COMPARISONS: PLEASE NOTE THAT BETWEEN 2002 AND TODAY THE PATIENT HAS HAD APPROXIMATELY 40 CT EXAMINATIONS OF THE ABDOMEN AND PELVIS AND AT LEAST 10 CT EXAMINATION OF THE CHEST. FINDINGS: Sap Developer View Findings, Lines and Tubes: Partially visualized dual-lead pacemaker projects over the cardiac silhouette. Visualized Chest: New 0.4 cm nodule abutting the posterior pleura in the LEFT lower lobe image eight series 2 could represent a small area of atelectasis or a new pulmonary nodule not seen on prior exams. Lung bases are otherwise clear. No pleural effusion. The heart is normal in size. No pericardial effusion. Diaphragm: Very small type I hiatal hernia and evidence of prior Jimena fundoplication again seen. Liver: Several chronically unchanged known cysts previously diagnosed unenhanced CT exams and the small subcentimeter low-attenuation area in segment 4A statistically benign. Mildly decreased attenuation at 37 Hounsfield units compatible with mild hepatic steatosis. Normal contour. Gallbladder: Surgically absent with clips in the gallbladder fossa. Bile ducts: No biliary ductal dilation. Spleen: Normal. Pancreas: Moderate diffuse fatty replacement. Adrenal glands: Normal. Kidneys and ureters: No hydronephrosis, stones, or suspicious masses. Bladder: Normal. Reproductive organs: Status post hysterectomy. Surgical clips in the RIGHT pelvis. Stomach, small bowel, and large bowel: Oral contrast noted throughout the colon. Mild thickening ofthe wall of the colon in several locations which could be due to underdistention but mild colitis is possible, most pronounced in the sigmoid colon without evidence of adjacent fat stranding. Minimaldiverticulosis of the sigmoid colon without acute diverticulitis. Mild submucosal fat deposition pre dominantly in the ascending colon and transverse colon, likely is related to chronic or recurrent inflammatory changes. Appendix: Likely surgically absent Peritoneum and retroperitoneum: No ascites or pneumoperitoneum. No omental or mesenteric lesions. Lymph nodes: No enlarged lymph nodes. Blood vessels: Mild to moderate vascular calcifications, advanced for age, but no aneurysm. Abdominal and pelvic wall: Evidence of moderate to severe obesity. Midline scar anterior pelvis. Atrophy of the LEFT rectus abdominis muscle again noted. Tiny periumbilical hernia containing only fat. Bones: Status post solid fusion at L5-S1 again seen. Again noted is lumbarization of the S1 vertebral body IMPRESSION: PLEASE NOTE THAT BETWEEN 2003 AND TODAY THE PATIENT HAS HAD APPROXIMATELY 40 CT EXAMINATIONS OF THEABDOMEN AND PELVIS AND AT LEAST 10 CT EXAMINATION OF THE CHEST. 1. New 0.4 cm pulmonary nodule versus more likely a small area of atelectasis posterior LEFT lower lobe. If low risk for malignancy, no routine follow-up. If high risk, optional CT at 12 months. If unchanged, no further follow-up needed per Guidelines for Management of Incidental Pulmonary Nodules Detected on CT Images: From the Fleischner Society 2017. 2. Questionable mild wall thickening in some portions of the sigmoid colon which could be evidence of mild colitis versus underdistention. Mild diverticulosis of the sigmoid colon without acute diverticulitis. 3. Evidence of mild diffuse hepatic steatosis and moderate to severe obesity. Mild to moderate arterial calcifications, advanced for age. 4. Prior cholecystectomy, appendectomy and hysterectomy. Prior solid surgical fusion at L5-S1. 5. Tiny periumbilical abdominal hernia containing only fat. 6. Atrioventricular pacemaker. Thank you for allowing me to participate in the care of this patient. WSN: [id number] Ordering Physician: Selina Marsh Dictated By: Shaan Lopez MD Dictated Date/Time: 11/06/23 1:02 pm Reviewed By: Shaan Lopez MD Signed By: Shaan Lopez MD Signed Date/Time: 11/06/23 1:02 pm Transcribed By: DIANE Transcribed Date/Time: 11/06/23 12:26 pm * Exam Date Time Procedure Performing Provider Status 11/05/23 1:13 PM Chest 2 Views Frontal and Lat Bruno Florentino; Auth (Verified) Notes: (Chest 2 Views Frontal and Lat) Reason For Exam: Cough RESULT: Chest 2 Views Frontal and Lat Chest 2 Views Frontal and Lat Reason: Cough; Clinical Question(s): Pneumonia COMPARISON: X-ray 10/13/2023 FINDINGS: LINES AND TUBES: Dual-lead left subclavian pacer/AICD wires are intact. LUNGS AND PLEURA: Clear lungs. Normal pulmonary vascularity. No pleural effusion. No pneumothorax. HEART, MEDIASTINUM AND DAGOBERTO: Heart is normal in size. Normal mediastinal and hilar contour. BONES AND SOFT TISSUES: No acute abnormality. IMPRESSION: No acute abnormality. WSN: [id number] Ordering Physician: Selina Marsh Dictated By: Aleksandr Hopkins MD Dictated Date/Time: 11/05/23 2:25 pm Reviewed By: Aleksandr Hopkins MD Signed By: Aleksandr Hopkins MD Signed Date/Time: 11/05/23 2:25 pm Transcribed By: DIANE Transcribed Date/Time: 11/05/23 2:25 pm * Exam Date Time Procedure Performing Provider Status 10/28/23 2:[address] Abd/Pelvis W/ IV Contrast Only Cecille García; Auth (Verified) Notes: (CT Abd/Pelvis W/ IV Contrast Only) Reason For Exam: Abdominal pain with nausea/vomiting;Pain RESULT: CT Abd/Pelvis W/ IV Contrast Only CT Abd/Pelvis W/ IV Contrast Only Reason: Pain; Abdominal pain with nausea vomiting; Clinical Question(s): Other:; Order Comment: pt got PO contrast @ 2 2023 11:58:43 EST unlikely to keep it down. RN will call if pt unable to tolerate. [facility] TECHNIQUE: Spiral CT through the abdomen and pelvis with IV contrast formatted in 3 planes. 100 cc of Omnipaque 300 was administered intravenously. This study was performed with oral contrast. Weight-based protocol using automatic tube modulation was used to optimize exposure parameters. COMPARISON: 10/18/2023 and multiple priors FINDINGS: Sap Developer View Findings, Lines and Tubes: Partially visualized dual-lead pacer. Visualized Chest: Lung bases are clear. No pleural effusion. The heart is normal in size. No pericardial effusion. Diaphragm: Normal. Liver: Multiple subcentimeter hypodense lesion throughout the liver, in same distribution compared to 2020 likely representing cysts. Gallbladder: Surgically absent Bile ducts: No biliary ductal dilation. Spleen: Normal. Pancreas: Normal. Adrenal glands: Normal. Kidneys and ureters: No hydronephrosis, stones, or suspicious masses. Bladder: Normal. Reproductive organs: Status post hysterectomy. Stomach, small bowel, and large bowel: Normal caliber small and large bowel, with enteric contrast in the terminal ileum without evidence of obstruction or active inflammation. Extensive submucosal fat deposition predominantly in the ascending colon and transverse colon, likely is related to chronic or recurrent inflammatory changes. Post fundoplication. Appendix: Surgically absent Peritoneum and retroperitoneum: No ascites or pneumoperitoneum. No omental or mesenteric lesions. Lymph nodes: No enlarged lymph nodes. Blood vessels: Mild vascular calcifications but no aneurysm. No evidence of venous thrombosis. Abdominal and pelvic wall: Few foci of gas in the anterior abdominal wall, likely related to subcutaneous injection. Bones: Status post intervertebral discs spaces are placement at L5-S1. Transitional type vertebral body with lumbarization of S1 vertebral body IMPRESSION: 1. No acute pathology in the abdomen pelvis. 2. Chronic findings as described above. I have personally reviewed the images and I agree with this report. WSN: [id number] Ordering Physician: Troy Bartholomew Dictated By: Luc Cazares MD Dictated Date/Time: 10/28/23 3:10 pm Reviewed By: Mary Alice Serra MD Signed By: Mary Alice Serra MD Signed Date/Time: 10/28/23 3:15 pm Transcribed By: DIANE Transcribed Date/Time: 10/28/23 2:49 pm * Exam Date Time Procedure Performing Provider Status 10/25/23 2:20 PM US Abdomen Comp Ofelia Muller; Auth ( Verified) Notes: (US Abdomen Comp) Reason For Exam: epigatric and LUQ pain. nausea, vomiting, unable to tolerate po.S/p cholecystectomy 15 years ago;Other: RESULT: US Abdomen Comp US Abdomen Comp Reason: Other:; epigatric and LUQ pain. nausea, vomiting, unable to tolerate po. S p cholecystectomy 15 years ago; Clinical Question(s): Choledocholithiasis; R o pancreatitis; Order Comment: US Abdomen Ltd Prep COMPARISON: CT abdomen and pelvis 10/18/2023. FINDINGS: Suboptimal examination secondary to bowel gas. Liver: Mildly echogenic in echotexture. Multiple simple cyst, the largest measuring 1.9 cm. No suspicious lesion. Main portal vein patent with normal hepatopetal direction of flow. Gallbladder: Status post cholecystectomy. Biliary Tree: No intrahepatic or extrahepatic bile duct dilation is identified. Common duct: 0.5 cm. Pancreas: Partially obscured by overlying bowel gas. No abnormality in the visualized portions of the pancreas. Spleen: Normal in size and echotexture. Right kidney: 10.2 cm in length. Normal parenchymal echotexture and thickness. No hydronephrosis, stone or mass. Left kidney: 10.9 cm in length. Normal parenchymal echotexture and thickness. No hydronephrosis, stone or mass. Aorta: Normal caliber and contour. Inferior vena cava: Normal. Other: No free fluid. IMPRESSION: Suboptimal examination secondary to bowel gas. Status post cholecystectomy. No significant biliary dilatation or intraductal abnormality identified. Mildly echogenic liver may represent hepatic steatosis. WSN: [id number] Ordering Physician: Lindsay Latham Dictated By: Petros Rivera MD Dictated Date/Time: 10/25/23 8:47 pm Reviewed By: Petros Rivera MD Signed By: Petros Rivera MD Signed Date/Time: 10/25/23 8:47 pm Transcribed By: DIANE Transcribed Date/Time: 10/25/23 8:40 pm * Exam Date Time Procedure Performing Provider Status 10/25/23 11:37 AM Abdomen AP Audie Powell (Veri fied) Notes: (Abdomen AP) Reason For Exam: nausea, vomiting, epigastric pain, unable to tolerate po, h/o gastroparesis;Pain RESULT: XR Abdomen AP XR Abdomen AP INDICATION/CLINICAL QUESTION: Reason: Pain; nausea, vomiting, epigastric pain, unable to tolerate po, h o gastroparesis; Clinical Question(s): Obstruction / Obstruction TECHNIQUE: 2 supine images. COMPARISON: 08/25/2023 FINDINGS: No gastric distention. Normal bowel gas pattern. No opaque stone upper abdomen. No gross constipation.. Bones: No acute bony abnormality. IMPRESSION: 1. No gastric distention or bowel dilatation.. 2. No gross constipation. WSN: [id number] Ordering Physician: Lindsay Latham Dictated By: Michael Rubi MD Dictated Date/Time: 10/25/23 12:38 p Reviewed By: Michael Rubi MD Signed By: Michael Rubi MD Signed Date/Time: 10/25/23 12:38 pm Transcribed By: DIANE Transcribed Date/Time: 10/25/23 12:37 pm * Exam Date Time Procedure Performing Provider Status 10/18/23 9:[address] Abd/Pelvis W/ IV Contrast Only Smith Fournier (Verified) Notes: (CT Abd/Pelvis W/ IV Contrast Only) Reason For Exam: LLQ abdominal pain;Other: RESULT: CT Abd/Pelvis W/ IV Contrast Only CT Abd/Pelvis W/ IV Contrast Only INDICATION: NVD on and off for few weeks, has a HX of addisons. Reason: LLQ abdominal pain; Clinical Question(s): Diverticulitis TECHNIQUE: Spiral CT through the abdomen and pelvis with IV contrast formatted in 3 planes. 100 cc of Omnipaque 300 was administered intravenously. This study was performed without oral contrast. Weight-based protocol using automatic tube modulation was used to optimize exposure parameters. CTDIvol Body: 22.36 mGy, DLP Body: 1143 mGy*cm. COMPARISON: CT abdomen pelvis 07/15/2023, 05/11/2023, and 12/05/2020 FINDINGS: Sap Developer View Findings, Lines and Tubes: Partially visualized dual-chamber pacer leads. Visualized Chest: Lung bases are clear. No pleural effusion. The heart is normal in size. No pericardial effusion. Diaphragm: Normal. Liver: Hypodensities in the right and left hepatic lobes, unchanged from 2020, likely representing cysts. Gallbladder: Absent consistent with prior cholecystectomy. Bile ducts: Minimal intrahepatic ductal dilation, likely related to prior cholecystectomy. Spleen: Normal. Pancreas: Normal. Adrenal glands: Normal. Kidneys and ureters: No hydronephrosis, stones, or suspicious masses. Bladder: Normal. Reproductive organs: Status post hysterectomy. Stomach, small bowel, and large bowel: Status post Jimena fundoplication. Mild mural fat infiltration in the distal ileum and ascending colon. Appendix: Surgery absent. Peritoneum and retroperitoneum: No ascites or pneumoperitoneum. No omental or mesenteric lesions. Lymph nodes: No enlarged lymph nodes. Blood vessels: Mild vascular calcifications but no aneurysm. No evidence of venous thrombosis. Abdominal and pelvic wall: Small fat-containing umbilical hernia. Bones: No acute abnormality. Status post fusion of L5-S1 (with the first nonrib- bearing lumbar-typevertebral body labeled L1). IMPRESSION: 1. Unremarkable appearance of the adrenals. 2. Intrarenal fat deposition in the distal small bowel and proximal large bowel, likely sequela of prior or chronic inflammation. No evidence of active inflammation. No bowel obstruction. I have personally reviewed the images and I agree with this report. WSN: [id number] Ordering Physician: Jessica Miller Dictated By: Naveed Parr MD Dictated Date/Time: 10/19/23 10:16 a Reviewed By: Aleksandr Murillo MD Signed By: Aleksandr Murillo MD Signed Date/Time: 10/19/23 10:21 am Transcribed By: DIANE Transcribed Date/Time: 10/19/23 10:01 am Vital Signs Most recent to oldest [Reference Range]: 1 2 3 4 5 Height 170 cm (11/29/23 5:20 PM) 170 cm (11/29/23 8:27 AM) 170 cm (11/28/23 7:44 PM) Weight 93.2 kg (12/01/23 6:49 AM) 93.9 kg (11/30/23 6:32 AM) 94.4 kg (11/29/23 6:00 AM) Oxygen Saturation [94-100 %] 98 % (12/01/23 12:00 PM) 98 % (12/01/23 11:00 AM) 98 % (12/01/23 7:00 AM) Pulse Rate [55-90 bpm] 65 bpm (12/01/23 12:00 PM) 68 bpm (12/01/23 11:00 AM) 62 bpm (12/01/23 9:41 AM) Body Mass Index [18.5-24.99 kg/m2] 33.22 kg/m2 *>HHI* (11/11/23 5:58 AM) 34.05 kg/m2 *>HHI* (10/30/23 12:46 PM) 34.39 kg/m2 *>HHI* (10/29/23 8:49 AM) Blood Pressure [90-138/55-84 mm Hg] 119/73mm Hg (12/01/23 12:00 PM) 126/83mm Hg (12/01/23 11:00 AM) 103/68mm Hg (12/01/23 9:41 AM) Respiratory Rate [16-30 br/min] 18 br/min (12/01/23 12:00 PM) 20 br/min (12/01/23 11:42 AM) 20 br/min (12/01/23 11:42 AM) 20 br/min (12/01/23 11:42 AM) 20 br/min (12/01/23 11:42 AM) Temperature [96.8-100.4 DegF] 98.2 DegF (12/01/23 12:00 PM) 98.3 DegF (12/01/23 11:00 AM) 97.6 DegF (12/01/23 7:00 AM) Liters per Minute 0 L/min (12/01/23 11:00 AM) 0 L/min (12/01/23 7:00 AM) 0 L/min (12/01/23 4:00 AM) Mode of Delivery (Oxygen) Room air (12/01/23 12:00 PM) Room air (12/01/23 11:00 AM) Room air (12/01/23 7:00 AM) Blood pressure sites Arm, right (12/01/23 4:00 AM) Arm, right (11/30/23 8:00 PM) Arm, right (11/30/23 8:24 AM) Temperature Route Axillary (12/01/23 12:00 PM) Oral (12/01/23 11:00 AM) Oral (12/01/23 7:00 AM) Dry Weight 103.6 kg (11/07/23 6:28 AM) 103.6 kg (10/20/23 12:25 AM) 102.6 kg (10/18/23 6:50 PM) Weight Obtained Via Standing scale (12/01/23 6:49 AM) Standing scale (11/30/23 6:32 AM) Standing scale (11/29/23 6:00 AM) Social History Social History Type Response [...] Unknown 07/09/21 Unknown Unknown Active Un known Consult note * Judson WILCOX, Hubert: PERFORM, MODIFY, MODIFY, MODIFY, MODIFY, MODIFY, MODIFY, MODIFY, MODIFY, MODIFY, MODIFY, MODIFY, MODIFY, MODIFY, MODIFY, MODIFY, MODIFY, MODIFY, MODIFY Event Display: Consult Authored Date: [id number] Patient: ??MARY ALICE IBRAHIM ? Age:??43 Years?Sex:??Female?:??1980?? Referrring Provider Not on Staff, Referring MD Chief Complaint NVD x 4 days Reason for Consultation Patient follows with Dr. Prescott (gastroenterology)??[facility]. History of Present Illness Ms. Ibrahim is a 43-year-old lady with a history of hypertension, hyperlipidemia, asthma, secondary adrenal insufficiency, SVT status post pacemaker. h/o GERD s/p fundoplication. She has chronic abdominal pain and frequent admissions for intractable vomiting without a clear etiology, no evidence of gastroparesis on gastric emptying scan in 2020. She has long history of constipation, that was not controlled with several laxatives, she can be several weeks with no BM's. CT on 07/15/23 show constipation. In the past suspected to have ??Likely she had constipation with overflow diarrhea. ?? She was admitted?? at [facility] from 08/17/2023 - 08/27/2023 for persistent nausea/vomiting.?? She had an EGD/colonoscopy without significant findings to explain her symptoms.?? She continued to have pain and vomiting after the admission but not as severe. She is admitted on 10/19/23 after she developed worsening abdominal pain, and diarrhea (some blood in stool noted) She was found with Strep parasanguinous bacteremia, unclear source, or if is a contaminant, she is currently on ATB, she was evaluated by ID. Review of Systems No weight loss, no fever no Chest pain no SOB Physical Exam Vitals & Measurements T:??98.2?F?? TMIN:??97.5?F?? TMAX:??98.3?F?? HR:??60??(Peripheral)?? RR:??18?? BP:??120/75?? SpO2:??95%?? WT:??96.1??kg?? GENERAL: In no acute distress. Obese. HEENT: Anicteric, NECK: Neck supple, without cervical lymphadenopathy CARDIOVASCULAR: Regular rate and rhythm. ??Not able to appreciate any murmurs, rubs, or gallops. ??No peripheral edema.?? RESPIRATORY: Lungs clear to auscultation GASTROINTESTINAL: Non-distended, normoactive bowel sounds, non-tender GENITOURINARY: No CVAT MUSCULOSKELETAL: Without joint effusions, no tenderness over spine SKIN: ??No diffuse rash present, no stigmata of infective endocarditis PSYCHIATRIC: No signs of hallucinations or delusions NEUROLOGICAL: A&Ox3, grossly intact Assessment/Plan Recurrent episodes of nausea/vomiting. s/p Fundoplication.??She is s/p cholecystectomy. no gastroparesis in gastric emptying scan in 2020. No explained by EGD in 08/2023. Currently having persistent vomiting She suffers from constipation and diarrhea, r/o overflow diarrhea. Constipation and vomiting can be due to adverse reaction to narcotic medication Vit D deficiency ?? Recommendation Vit D supplementation Symptomatic supportive care Ondansetron Consider antipsychotics like risperidone to manage nausea/vomiting induced by narcotics,??for that get the input of??psychiatry. Minimize narcotic medication Nasojejunal tube while to provider feeding PPI Miralax as needed to manage constipation Barium swallow-UGI series to evaluate configuration for fundoplication Problem List/Past Medical History Ongoing Abdominal pain Adrenal insufficiency Asthma Chest pain Chronic back pain Eating disorder Essential hypertension Gastroesophageal reflux disease Hyperlipidemia with target LDL less than 100 Mast cell disease MDD (major depressive disorder), recurrent episode, mild Normal coronary arteries Obese class I Ocular migraine Opioid dependence Pacemaker, Biotronik, inserted 10/29/14 Personality disorder PTSD (post-traumatic stress disorder) PTSD (post-traumatic stress disorder) S/p REFUGIO-BSO SVT (supraventricular tachycardia) Procedure/Surgical History ?? Colonoscopy 08/2023: up to ileum normal EGD 08/2023: gastritis, s/p fundoplication 1. Small bowel, biopsy: - Duodenal mucosa with no significant diagnostic alterations (villous architecture preserved).?2. Stomach, random, biopsies: - Gastric antral mucosa with mild reactive gastropathy and focal intestinal metaplasia. - Gastric oxyntic mucosa with proton pump inhibitor (PPI) effect. - No morphologic evidence of Helicobacter pylori micro-organisms. 3. Colon, random, biopsies: - Colonic mucosa with no significant diagnostic alterations. ??4. Rectum, biopsy: - Colonic mucosa with no significant diagnostic alterations.? Medications Inpatient Acetaminophen Tablet, 650 mg, By Mouth, Every 4 hours, PRN Albuterol 90 mcg Inhaler, 180 mcg= 2 puffs, Inhalation, Every 4 hours, PRN Ambien 5 mg oral tablet, 5 mg, By Mouth, Daily at bedtime, PRN Ativan 0.5 mg oral tablet, 0.5 mg, Sublingual, 3 times a day, PRN Benadryl Inj, 50 mg= 1 mL, IV Push, Every 6 hours, PRN Ceftriaxone Inj, 2 Gm, IVPB, Every 24 hours Dilaudid 2 mg oral tablet, 2 mg, By Mouth, Every 6 hours Enoxaparin Inj, 40 mg= 0.4 mL, Subcutaneous Injection, Daily famotidine 20 mg oral tablet, 20 mg, By Mouth, 2 times a day FLUoxetine 20 mg oral capsule, 40 mg, By Mouth, Daily gabapentin 300 mg oral capsule, 300 mg, By Mouth, 3 times a day HydrOXYzine HCL Tablet, 10 mg, By Mouth, Once, PRN KlonoPIN 1 mg oral tablet, 1 mg, By Mouth, 2 times a day melatonin 3 mg oral tablet, 9 mg, By Mouth, Daily at bedtime metoprolol 100 mg oral tablet, 100 mg, By Mouth, 2 times a day montelukast 10 mg oral tablet, 10 mg, By Mouth, Daily prazosin 1 mg oral capsule, 2 mg, By Mouth, Daily at bedtime Protonix 40 mg oral delayed release tablet, 40 mg, By Mouth, Daily Senna 8.6 mg oral tablet, 17.2 mg= 2 tablet, By Mouth, 2 times a day SoluCortef Inj, 14 mg, Subcutaneous Injection, Daily in AM SoluCortef Inj, 7 mg, Subcutaneous Injection, Daily before dinner spironolactone 25 mg oral tablet, 25 mg, By Mouth, Daily traZODone 50 mg oral tablet, 150 mg, By Mouth, Daily at bedtime Wellbutrin SR Tablet, 100 mg, By Mouth, Daily Zofran Inj, 4 mg, IV Push, Every 6 hours, PRN Zofran ODT 4 mg oral tablet, disintegrating, 4 mg, By Mouth, Every 8 hours Home Aspirin Enteric Coated 81 mg oral delayed release tablet, 81 mg= 1 tablet, By Mouth, Daily Ativan 1 mg oral tablet, 1 mg= 1 tablet, By Mouth, 3 times a day, PRN atorvastatin 40 mg oral tablet, 40 mg= 1 tablet, By Mouth, Daily cromolyn 20 mg/mL oral solution, 200 mg= 10 mL, By Mouth, 4 times a day FLUoxetine 20 mg oral capsule, 40 mg= 2 capsule, By Mouth, Daily gabapentin 300 mg oral capsule, 300 mg= 1 capsule, By Mouth, 2 times a day KlonoPIN 1 mg oral tablet, 1 mg= 1 tablet, By Mouth, 2 times a day, 4 refills Metoprolol Tartrate 100 mg oral tablet, 1 tablet, By Mouth, 2 times a day, 4 refills montelukast 10 mg oral tablet, 10 mg= 1 tablet, By Mouth, Daily in PM ondansetron 4 mg oral tablet, disintegrating, 8 mg= 2 tablet, By Mouth, Every 8 hours, PRN ondansetron 4 mg oral tablet, disintegrating, 4 mg= 1 tablet, By Mouth, Every 6 hours, PRN potassium chloride 10 mEq oral tablet, extended release, 20 mEq= 2 tablet, By Mouth, Daily prazosin 2 mg oral capsule, 2 mg= 1 capsule, By Mouth, Daily at bedtime, 4 refills Protonix 40 mg oral delayed release tablet, 40 mg, By Mouth, 2 times a day, 1 refills Solu-CORTEF Act-O-Vial 100 mg injection, See Instructions, 11 refills spironolactone 25 mg oral tablet, 1 tablet, By Mouth, Daily Wellbutrin SR 100 mg/12 hours oral tablet, extended release, 100 mg= 1 tablet, By Mouth, Daily, 4 refills Allergies Cefzil??(Hives) Compazine??(severe anxiety, Hives) Haldol Inderal??(n/v,tachcardia) Lexapro??(n/v) Nardil??(Palpitations - rapid, N&V - Nausea and vomiting, C/O - a headache) Reglan??(severe anxiety~panic) Xarelto??(rash) Zoloft??(tachycardia, n/v) droperidol-fentanyl propranolol??(Rash) Social History Alcohol Frequency: 1-2 times per year. Type: Wine. Exercise Regular exercise: Yes. Exercise type: Walking. Home/Environment Living situation: Home/Independent. Lives with: Children, Spouse. Sexual Sexually involved in last 6 months: Yes. Sexual orientation: Heterosexual. Substance Abuse Use: Never. Tobacco Use: Former smoker, quit more than 30 days ago. Family History Aneurysm: Aunt. CAD - Coronary artery disease: Mother. Cancer of ovary: Mother. Endometriosis: Mother. Heart attack: Mother. Heart disease: Mother. Hyperlipidemia: Mother. Hypertension: Mother. Unknown: Father. Uterine cancer 04-JUL-2016 02:49:48<$>: Mother. Lab Results Test Name Test Result Date/Time WBC 5.1 k/mm3 11/09/2023 07:31 EST Hgb 11.8 Gm/dL 11/09/2023 07:31 EST Hct 36.3 % 11/09/2023 07:31 EST MCV 87.3 femtoliters 11/09/2023 07:31 EST Platelet Count 161 k/mm3 11/09/2023 07:31 EST BUN 6 mg/dL 11/09/2023 07:31 EST Creatinine-Blood 0.8 mg/dL 11/09/2023 07:31 EST Estimated GFR Creatinine 94 ML/MIN/1.73 M2 11/09/2023 07:31 EST Alkaline Phosphatase 99 units/L 11/09/2023 07:31 EST AST (SGOT) 21 units/L 11/09/2023 07:31 EST ALT (SGPT) 32 units/L 11/09/2023 07:31 EST Bilirubin, Total 0.3 mg/dL 11/09/2023 07:31 EST Lactate 2.3 mmol/L 11/05/2023 21:12 EST Cholesterol 96 mg/dL 11/09/2023 07:31 EST Triglycerides 162 mg/dL 11/09/2023 07:31 EST HDL Cholesterol 25 mg/dL 11/09/2023 07:31 EST LDL Cholesterol 39 mg/dL 11/09/2023 07:31 EST Non HDL Cholesterol 71 mg/dL 11/09/2023 07:31 EST TSH 0.96 uIU/mL 10/19/2023 04:32 EST Cortisol Level 3.1 ??g/dL 11/09/2023 07:31 EST 25 OH-Vitamin D Level 15.6 ng/mL 11/09/2023 07:31 EST Diagnostic Results (11/05/2023 13:13 EST Chest 2 Views Frontal and Lat) No acute abnormality. [1] ?? (10/25/2023 11:37 EST Abdomen AP) ??1. No gastric distention or bowel dilatation.. [2] ?? (08/25/2023 11:04 EST Small Bowel Series) A preliminary soldering technician view shows normal gas pattern without obstruction. ??The patient was given oral barium and a follow-up film at 30 minutes was obtained which shows that the contrast has reached the ascending colon. Normal caliber small bowel loops without obstruction.?? [3] ?? (11/06/2023 12:[address] Abdomen and Pelvis W/O Contrast) PLEASE NOTE THAT BETWEEN 2002 AND TODAY THE PATIENT HAS HAD APPROXIMATELY 40 CT EXAMINATIONS OF THEABDOMEN AND PELVIS AND AT LEAST 10 CT EXAMINATION OF THE CHEST. 1. ?? New 0.4 cm pulmonary nodule versus more likely a small area of atelectasis posterior LEFT lower lobe. If low risk for malignancy, no routine follow-up. If high risk, optional CT at 12 months. If unchanged, no further follow-up needed per Guidelines for Management of Incidental Pulmonary Nodules Detected on CT Images: From the Fleischner Society 2017.?? 2. ??Questionable mild wall thickening in some portions of the sigmoid colon which could be evidence of mild colitis versus underdistention. Mild diverticulosis of the sigmoid colon without acute diverticulitis. 3. ??Evidence of mild diffuse hepatic steatosis and moderate to severe obesity. Mild to moderate arterial calcifications, advanced for age. 4. ??Prior cholecystectomy, appendectomy and hysterectomy. Prior solid surgical fusion at L5-S1. 5. ??Tiny periumbilical abdominal hernia containing only fat. 6. ??Atrioventricular pacemaker. ?? [4] (10/25/2023 14:20 EST US Abdomen Comp) Suboptimal examination secondary to bowel gas. ?? Status post cholecystectomy. No significant biliary dilatation or intraductal abnormality identified Mildly echogenic liver may represent hepatic steatosis. ? Gastric emptying scan 2020 There is normal emptying of radiotracer from the stomach visually. Percentage activity in the stomach is as follows: 1 hour: ??78 % (normal is < 90%) 2 hours: ??57 % (normal is < 60%) 4 hours: ??8 % (normal is < 10%) ?? [1]??Chest 2 Views Frontal and Lat; Sandeep WILCOX, Aleksandr Anderson 11/05/2023 13:13 EST [2]??Abdomen AP; Greyson WILCOX, Michael Greenberg 10/25/2023 11:37 EST [3]??Small Bowel Series; Jimbo Hernandez MD 08/25/2023 11:04 EST [4]??CT Abdomen and Pelvis W/O Contrast; Shaan Lopez MD 11/06/2023 12:20 EST * Nicole Claudio MD: PERFORM, SIGN, VERIFY, MODIFY, SIGN Event Display: Consultation Note Authored Date: [id number] Patient: MARY ALICE IBRAHIM Age: 43 years Sex: Female : 1980 Associated Diagnoses: None Author: Nicole Claudio MD INFECTIOUS DISEASES CONSULTATION NOTE Date:_ Requesting Attending/Provider: _Hospitalist Reason for Consult: strep parasanguinous bacteremia Source of Information: [facility], patient History of Present Illness ([id number]: HPI ???4): The patient is a 43_ year-old _ with a past medical history of _gastroparesis who presents on 10/18 with 7/10 abdominal discomfort as well as nausea and vomiting. She has similar episode in August and had EGD and colonoscopy unremarkable. She reports no endocarditis but has pacer,has had SVT. She has had nausea ,vomiting and diarrhea and has had stress doses cortisone. She has midline left placed 10/20 for hydration and removed 11/07. Line looked unremarkable. She had temperature of 103 on 11/06 and had blood cultures drawn showing 11/05 strep parasanguinous and 11/06 gram positive cocci in blood. She reports not being able to get PICC lines due to prior scarring. She has no recent dental work or problems with oral cavity., She does have lumbar pain ,/ somewhat new but no new weakness legs Past Medical and Surgical History: _ Mast cell disease PTSD Polypharmacy asthma Recent Antimicrobials: none -_ Medications: Reviewed Antimicrobial Allergies: No known antimicrobial allergies. Family History: Noncontributory to this current admission. Social History: _. Denies history of tobacco, heavy alcohol, and illicit drug use. She was a [employer]. Review of Systems (34322: 2-9 ROS; 26451/62501: 10 ROS): 10-point review of systems fully reviewed and negative aside from what is listed above in the HPI. Medication List MED LIST (Selected) Inpatient Medications Ordered Acetaminophen Tablet: 650 mg, Tablet, By Mouth, Every 4 hours, PRN for Pain , Mild, Temperature Greater than 100.5, Routine, 11/05/23 12:15:00 EST Albuterol 90 mcg Inhaler: 180 mcg, 2 puffs, Inhaler, Inhalation, Every 4 hours, PRN for Wheezing/Shortness of Breath, Routine, 10/21/23 14:29:00 EST Ambien 5 mg oral tablet: 5 mg, Tablet, By Mouth, Daily at bedtime, PRN for Sleep, Routine, 10/31/2420:03:00 EST Ativan 0.5 mg oral tablet: 0.5 mg, Tablet, Sublingual, 3 times a day, Routine, 10/20/23 21:00:00 EST Benadryl Inj: 50 mg, Injection, IV Push, Every 6 hours, PRN for Itch, Routine, 10/19/23 3:08:00 EST Ceftriaxone IVPB: 1 Gm, in 100 mL NaCl 0.9%, IVPB, Injection, Every 24 hours for 5 days, Indicated for: Bacteremia, Routine, 11/07/23 15:00:00 EST, Stop date 11/12/23 14:59:00 EST Dilaudid 2 mg oral tablet: 2 mg, Tablet, By Mouth, 4 times a day, Routine, 11/07/23 13:00:00 EST Dilaudid Inj: 1 mg, Injection, IV Push Slowly, Every 6 hours, PRN for Pain , Severe, Routine, 11/05/23 18:28:00 EST Enoxaparin Inj: 40 mg, Injection, Subcutaneous Injection, Daily, Routine, 10/19/23 9:00:00 EST FLUoxetine 20 mg oral capsule: 40 mg, Capsule, By Mouth, Daily, Routine, 10/19/23 9:00:00 EST Heparin Flush 10 units/mL Inj: 5 mL, Injection, IV Push, Daily, to Midline/PICC when no continuous infusion running, use 10 mL syringe, Heparin is last med left in line, Routine, 10/21/23 14:28:00 EST Heparin Flush 10 units/mL Inj: 5 mL, Injection, IV Push, Every hour, to Midline/PICC, PRN for Line/Tube Patency, Post administration of Saline Flush, use 10 mL syringe, Heparin is last med left in line, Routine, 10/21/23 14:28:00 EST HydrOXYzine HCL Tablet: 10 mg, Tablet, By Mouth, Once, PRN for Anxiety, Routine, 10/20/23 19:35:00 EST NaCL 0.9% Flush: 5 mL, Injection, IV Push, Daily, to Midline/PICC when no continuous infusion running, follow with Heparin Flush, use 10 mL syringe, Routine, 10/21/23 14:28:00 EST NaCL 0.9% Flush: 5 mL, Injection, IV Push, Every hour, to Midline/PICC, PRN for Line/Tube Patency, Pre and post medication administration, follow with Heparin Flush, use 10 mL syringe, Routine, 10/21/23 14:28:00 EST Protonix 40 mg oral delayed release tablet: 40 mg, EC Tablet, By Mouth, Daily, Indicated for: GERD,Routine, 11/04/23 11:04:00 EST Senna 8.6 mg oral tablet: 2 tablet, Tablet, By Mouth, 2 times a day, Routine, 10/22/23 11:38:00 EST SoluCortef Inj: 14 mg, Injection, Subcutaneous Injection, Daily in AM, Routine, 11/08/23 9:00:00 EST SoluCortef Inj: 7 mg, Injection, Subcutaneous Injection, Daily before dinner, Routine, 11/07/23 16:00:00 EST Toradol Inj: 7.5 mg, Injection, IV Push Slowly, Every 6 hours for 5 days, PRN for Pain , Moderate, Routine, 11/05/23 12:16:00 EST, Stop date 11/10/23 12:15:00 EST Vancomycin IVPB: 1,250 mg, IVPB, Injection, Every 12 hours for 7 days, Infuse over 60 to 90 minutes, Indicated for: Bacteremia, Routine, 11/06/23 15:00:00 EST, Stop date 11/13/23 14:59:00 EST Wellbutrin SR Tablet: 100 mg, SR Tablet, By Mouth, Daily, Routine, 10/19/23 9:00:00 EST Zofran Inj: 8 mg, Injection, IV Push, Every 6 hours, PRN for Nausea&Vomiting, Routine, 10/30/2413:44:00 EST aspirin 81 mg oral delayed release tablet: 81 mg, EC Tablet, By Mouth, Daily, Routine, 10/19/23 9:00:00 EST atorvastatin 40 mg oral tablet: 40 mg, Tablet, By Mouth, Daily, Routine, 10/19/23 9:00:00 EST famotidine 20 mg oral tablet: 20 mg, Tablet, By Mouth, 2 times a day, Routine, 11/05/23 21:00:00 EST gabapentin 300 mg oral capsule: 300 mg, Capsule, By Mouth, 3 times a day, Routine, 10/30/23 15:00:00 EST melatonin 3 mg oral tablet: 9 mg, Tablet, By Mouth, Daily at bedtime, Routine, 10/21/23 21:00:00 EST metoprolol 100 mg oral tablet: 100 mg, Tablet, By Mouth, 2 times a day, Routine, 10/19/23 9:00:00 EST montelukast 10 mg oral tablet: 10 mg, Tablet, By Mouth, Daily, Routine, 10/19/23 17:00:00 EST prazosin 1 mg oral capsule: 2 mg, Capsule, By Mouth, Daily at bedtime, Routine, 10/19/23 21:00:00 EST spironolactone 25 mg oral tablet: 25 mg, Tablet, By Mouth, Daily, Routine, 11/02/23 9:00:00 EST traZODone 50 mg oral tablet: 150 mg, Tablet, By Mouth, Daily at bedtime, Routine, 10/21/23 21:00:00EST Canceled Potassium Chloride 10 mEq/100 mL IVPB: 10 mEq, Premix, IVPB, Every hour for 3 doses/times, For a total dose of 30mEq over 3 hours., Routine, 11/03/23 9:00:00 EST, Stop date 11/03/23 11:59:00 EST SoluCortef Inj: 14 mg, Injection, Intramuscular, Daily in AM, Routine, 11/08/23 9:00:00 EST SoluCortef Inj: 7 mg, Injection, Intramuscular, Daily before dinner, Routine, 11/07/23 16:00:00 EST Completed LR Bolus 500 mL: 500 mL, Infusion, IV Infusion, Once, STAT, 11/05/23 21:06:00 EST Phos-NaK Oral Powder: 1 pack/packet, Oral Powder, By Mouth, 3 times a day for 2 days, Routine, 11/05/23 15:00:00 EST, Stop date 11/07/23 14:59:00 EST Potassium Chloride 10 mEq/100 mL IVPB: 10 mEq, Premix, IVPB, Every hour for 2 doses/times, For a total dose of 20mEq over 2 hours., Routine, 11/03/23 9:00:00 EST, Stop date 11/03/23 10:59:00 EST Potassium Chloride 10 mEq/100 mL IVPB: 10 mEq, Premix, IVPB, Every hour for 4 doses/times, For a total dose of 40 mEq over 4 hours., Routine, 11/06/23 9:00:00 EST, Stop date 11/06/23 12:59:00 EST Potassium Chloride 10 mEq/100 mL IVPB: 10 mEq, Premix, IVPB, Every hour for 4 doses/times, For a total dose of 40 mEq over 4 hours., Routine, 11/07/23 10:00:00 EST, Stop date 11/07/23 13:59:00 EST thiamine 100 mg oral tablet: 100 mg, Tablet, By Mouth, Daily, Routine, 10/26/23 13:41:00 EST, Stop date 11/04/23 13:40:00 EST Discontinued D5%LR 1000 mL w/KCL 40 mEq 1,000 mL: 1,000 mL, Infusion, IV Infusion, 1,000 mL, 100 mL/hr, Infuse over 10 hr, Continue until D/C'd Unless duration specified, Routine, 11/02/23 9:30:00 EST, 2.14, m2 Dilaudid Inj: 2 mg, Injection, IV Push Slowly, Every 6 hours, PRN for Pain , Severe, Routine, 11/01/23 9:23:00 EST Dilaudid Inj: 2 mg, Injection, IV Push Slowly, Every 6 hours, PRN for Pain , Severe, Routine, 11/05/23 12:15:00 EST Famotidine Inj: 20 mg, Injection, IV Push Slowly, Every 12 hours, Dilute in 5mL of NaCL and push over 2 minute., Routine, 10/23/23 21:00:00 EST HydroCORTisone Inj: 50 mg, Injection, IV Push Slowly, 2 times a day, Routine, 10/19/23 9:00:00 EST Toradol Inj: 7.5 mg, Injection, IV Push Slowly, Every 6 hours, Routine, 10/31/23 10:00:00 EST, Stopdate 11/05/23 15:59:00 EST Prescriptions Prescribed Ativan 1 mg oral tablet: 1 tablet = 1 mg, By Mouth, 3 times a day, PRN for anxiety, # 11 tablet, 0 Refills, Maintenance, 07/15/23 11:42:00 EDT, Tablet, [facility] #[id number], Partial fill upon patient request if the prescription is for a schedule II opioid drug., 170, c... KlonoPIN 1 mg oral tablet: 1 tablet = 1 mg, By Mouth, 2 times a day, # 60 tablet, 4 Refills, Maintenance, 08/10/23 14:21:00 EST, Tablet, [facility] #[id number], Partial fill upon patient requestif the prescription is for a schedule II opioid drug., 170, cm, 08/05/23 3:21:... Metoprolol Tartrate 100 mg oral tablet: 1 tablet, By Mouth, 2 times a day, # 60 tablet, 4 Refills, Maintenance, 10/11/23 9:06:00 EST, [facility] #[id number], 170, cm, 09/26/23 11:43:00 EST, Height, 93, kg, 09/26/23 11:43:00 EST, Dry Weight Protonix 40 mg oral delayed release tablet: = 40 mg, By Mouth, 2 times a day, # 60 tablet, 1 Refills, Maintenance, 08/27/23 8:49:00 EST, EC Tablet, 170, cm, 08/27/23 7:32:00 EST, Height, 99, kg, 08/18/23 9:13:00 EST, Dry Weight Solu-CORTEF Act-O-Vial 100 mg injection: See Instructions, use daily SQ for adrenal insufficiency. 14 mg qam and 7 mg qpm please provide extra 2 mg vial for stress dosing., # 8 each, 11 Refills, SoftStop, 05/27/23 14:16:00 EDT, Powder, [facility] #[id number], Partial fill upon patient... Wellbutrin SR 100 mg/12 hours oral tablet, extended release: 1 tablet = 100 mg, By Mouth, Daily, # 30 tablet, 4 Refills, Maintenance, 08/10/23 14:26:00 EST, [facility] #[id number], Partial fill upon patient request if the prescription is for a schedule II opioid drug., 170, cm, 08/05/23 3:21:00 EST, Height... ondansetron 4 mg oral tablet, disintegratin tablet = 4 mg, By Mouth, Every 6 hours, PRN as needed for nausea/vomiting, # 14 tablet, 0 Refills, Maintenance, 10/13/23 13:52:00 EST, DIS Tablet, [facility] #[id number], Partial fill upon patient request if the prescription is for a schedule I... prazosin 2 mg oral capsule: 1 capsule = 2 mg, By Mouth, Daily at bedtime, if PO intake is low or BPlow below 110/70 only take one cap, # 30 capsule, 4 Refills, Maintenance, 08/10/23 14:14:00 EST, [facility] #[id number], Partial fill upon patient request if the prescription... spironolactone 25 mg oral tablet: 1, tablet, By Mouth, Daily, # 30 tablet, Refills 0, Maintenance, 09/10/23 16:43:00 EST, Route to Pharmacy Electronically, [facility] #[id number], 170, cm, 08/27/23 7:32:00 EST, Height, 99, kg, 08/18/23 9:13:00 EST, Dry Weight Documented Medications Documented Aspirin Enteric Coated 81 mg oral delayed release tablet: 1 tablet = 81 mg, By Mouth, Daily, Maintenance, 08/18/23 8:46:00 EST FLUoxetine 20 mg oral capsule: 40 mg, 2, capsule, By Mouth, Daily, Maintenance, 08/18/23 8:43:00 EST atorvastatin 40 mg oral tablet: 1 tablet = 40 mg, By Mouth, Daily, Maintenance, 08/18/23 8:47:00 EST, Tablet cromolyn 20 mg/mL oral solution: 10 mL = 200 mg, By Mouth, 4 times a day, 30 minutes before meals and at bedtime, Maintenance, 08/18/23 8:45:00 EST, Solution gabapentin 300 mg oral capsule: 300 mg, 1, capsule, By Mouth, 2 times a day, Refills 0, Maintenance, 08/18/23 8:44:00 EST, Partial fill upon patient request if the prescription is for a schedule II opioid drug. montelukast 10 mg oral tablet: 10 mg, 1, tablet, By Mouth, Daily in PM, Maintenance, 08/18/23 8:47:00 EST Review of Systems Review of Systems Constitutional: no chills, no fever. Respiratory: denies nonproductive cough. Cardiovascular: no peripheral edema. Gastrointestinal: nausea, diarrhea improved. Other systems: Neuro neg . Physical Examination (72216: 2-7 organ systems or comprehensive single system exam; 46608/07817: 8 organ systems or comprehensive single system exam) .VitalsTemperature 98.6 (15:49) Systolic Blood Pressure 128 (15:49) Diastolic Blood Pressure 86 (15:49) Pulse 59 (15:49) SpO2 96 (15:49) Respiratory Rate 16 (17:41) GENERAL: In no acute distress HEENT: Anicteric, no subconjunctival petechiae, moist oral mucosa without lesions or thrush, missing teeth left upper but no acute dental issues seen NECK: Neck supple, without cervical lymphadenopathy CARDIOVASCULAR: Regular rate and rhythm. Not able to appreciate any murmurs, rubs, or gallops. No peripheral edema. RESPIRATORY: Lungs clear to auscultation GASTROINTESTINAL: Non-distended, normoactive bowel sounds, non-tender GENITOURINARY: No CVAT MUSCULOSKELETAL: Without joint effusions, no tenderness over spine SKIN: No diffuse rash present, no stigmata of infective endocarditis PSYCHIATRIC: No signs of hallucinations or delusions NEUROLOGICAL: A&Ox3, grossly intact LINES: Results Review General results Microbiology: Impression and Plan Impression: _ Strep parasanguinous bacteremia It is not clear whether subsequent blood cultures are the same organism. gram positive cocci though This can be implicated in endocarditis. There may be also contaminant if subsequent coagulase negative staph in blood. All Cefzil rash but tolerating Ceftriaxone (received one dose) There is risk for endocarditis or spine OM. Recommendations: Continue Ceftriaxone 2 g daily Would check LS spine and agree MRI abdomen and LS spine evaluate infection Check echo evaluate endocarditis and may need VERA evaluate pacer. Likely require 4 weeks IV antibiotics ,Ceftriaxone probably. Consider GI evaluation again abdominal pain Stop Vancomycin. -_ Thank you for the consultation. Infectious Diseases will continue to follow the patient with you. History and physical note * Arsen Geronimo DO: PERFORM Event Display: History and Physical Hospital Authored Date: [id number] Patient: ??MARY ALICE IBRAHIM ? Age:??43 Years?Sex:??Female?:??1980?? Chief Complaint/Reason for Consultation NVD x 4 days History of Present Illness Ms. Ibrahim is a 43-year-old lady with a history of hypertension, hyperlipidemia, asthma, secondary adrenal insufficiency, SVT status post pacemaker, chronic abdominal pain and frequent admissions for intractable vomiting without a clear etiology who presents with vomiting. History is obtained from the patient who is a good historian. ?? She was admitted here for 10 days in August for similar symptoms.?? She had an EGD/colonoscopy without significant findings to explain her symptoms.?? She states that she continues to have pain andvomiting after the admission though it was manageable at home with oral medications.?? Unfortunate about 3 days ago the vomiting worsened and she started having numerous episodes of diarrhea.?? She occasionally saw small amounts of blood in her stool.?? She is reporting abdominal pain in the epigastric region as well as the lower abdomen.?? She took a stress dose of hydrocortisone last night at home and then again today in the afternoon while waiting for a bed in the ED. ?? In the ED her labs were unremarkable.?? CT scan of the abdomen showed no acute pathology. Review of Systems Positive ROS are noted in??BOLD TEXT General?fatigue, weight change, fever, chills, falls HEENT?COTO, vision change, sore throat?? Pulm?cough, SOB, SPEAR, wheezing CV?chest pain, palpitations, PND, orthopnea, edema GI?abd pain, nausea, vomiting, diarrhea, constipation, melena, hematochezia ?dysuria, increased frequency, hematuria, incontinence MS?back pain, joint swelling, arthralgias Neuro?syncope, dizziness, weakness, paresthesias Hematologic?bleeding tendency, easy bruising Skin?rash, lesions Psych?depression, SI/HI Objective Vital Signs?? Temperature: 99 DegF (10/18/23 23:00:00) Temperature Route: Oral (10/18/23 23:00:00) Pulse Rate:??99 bpm??High (10/18/23 23:00:00) Respiratory Rate: 16 br/min (10/19/23 02:58:00) Systolic Blood Pressure: 126 mm Hg (10/18/23 23:00:00) Diastolic Blood Pressure: 82 mm Hg (10/18/23 23:00:00) Blood pressure sites: Arm, left (10/18/23 23:00:00) Mean Arterial Pressure: 77 mm Hg (10/18/23 18:50:00) Pulse Pressure: 45 mm Hg (10/18/23 18:50:00) Oxygen Saturation: 96 % (10/18/23 23:00:00) Mode of Delivery (Oxygen): Room air (10/18/23 23:00:00) ? Intake/Output? No Data Available ? Physical Exam Constitutional: No acute distress, well-developed, alert and oriented x4 HEENT: Normocephalic, atraumatic, PERRLA, EOMI, oropharynx clear, moist mucus membranes Respiratory: CTA bilaterally, no wheezes/rhonchi/rales Cardiac: RRR, +S1/S2, no murmurs/rubs, pulses palpable and equal in all extremities, no edema Gastrointestinal: +BS, soft, nondistended, tender to palpation??diffusely Neurologic: CNII-XII grossly intact, 5/5 strength in all extremities, sensation intact Musculoskeletal: No gross deformities, back non-tender to palpation Skin: No rash/lesion Psych: Mood appropriate to situation Assessment/Plan Assessment:??Ms. Ibrahim is a 43-year-old lady with a history of hypertension, hyperlipidemia, asthma, secondary adrenal insufficiency, SVT status post pacemaker, chronic abdominal pain and frequent admissions for intractable vomiting without a clear etiology who presents with vomiting ?? Intractable vomiting (R11.10):??. Abdominal pain (R10.9):? 3 days of vomiting, diarrhea, abdominal pain??though??no significant laboratory derangements and??CT abdomen/pelvis shows no acute pathology. She also had an EGD/colonoscopy back in August??with??biopsies showing??focal intestinal metaplasia??in the stomach which will require??follow-up endoscopy??though no other explanation for her symptoms. Patient believes this may be her gastroparesis. She did have an abnormal gastric emptying study back in 2004 though since then has had 2??additional gastric emptying studies,??in 2011 and 2020, both of which were normal. -Zofran, Dilaudid as needed -Continue IV fluids -Clear liquids as tolerated ?? Secondary adrenal insufficiency (E27.49):??Follows with Dr. Cheng. Had given herself subcutaneous stress dosing at home. Normally takes hydrocortisone 14 mg/7mg -Cont stress dosing with hydrocortisone 50 mg BID ?? Paroxysmal supraventricular tachycardia (I47.10):??Continue metoprolol ?? Asthma (J45.909):??Continue Singulair. Albuterol as needed ?? Essential hypertension (I10):??Continue metoprolol. Hold spironolactone until her intake improves ?? Chronic back pain (M54.9):??Continue gabapentin ?? MDD (major depressive disorder), recurrent episode, mild (F33.0):??. PTSD (post-traumatic stress disorder) (F43.10):? -Continue bupropion, fluoxetine, prazosin ?? VTE Prophylaxis:??Moderate risk, Lovenox ?VTE Prophylaxis Assessment:??VTE Prophylaxis Ordered ?? Code Status:??Full code ?Order Code Status:??Code Status Ordered ?? Patient evaluated on10/19/2023 Histories Allergies Allergies ?(Active and Proposed Allergies Only) droperidol-fentanyl? (Severity: Unknown severity, Onset: Unknown) ?Comments: Only allergic to droperidol NOT fentanyl. It won't let me add only the droperidol. RXN was sucidal thoughts ?with tremors Haldol? (Severity: Unknown severity, Onset: Unknown) Compazine? (Severity: Unknown severity, Onset: Unknown) ?Reactions: Hives, severe anxiety Xarelto? (Severity: Unknown severity, Onset: Unknown) ?Reactions: rash Cefzil? (Severity: Unknown severity, Onset: Unknown) ?Reactions: Hives Nardil? (Severity: Unknown severity, Onset: Unknown) ?Reactions: C/O - a headache, N&V - Nausea and vomiting, Palpitations - rapid propranolol? (Severity: Unknown severity, Onset: Unknown) ?Reactions: Rash Reglan? (Severity: Unknown severity, Onset: Unknown) ?Reactions: severe anxiety~panic Inderal? (Severity: Unknown severity, Onset: Unknown) ?Reactions: n/v,tachcardia Zoloft? (Severity: Unknown severity, Onset: Unknown) ?Reactions: tachycardia, n/v Lexapro? (Severity: Unknown severity, Onset: Unknown) ?Reactions: n/v ? Past Medical History/Problem List Active Problems??(23) Abdominal pain Adrenal insufficiency Asthma Chest pain Chronic back pain COVID-19 Essential hypertension Functional overlay Gastroesophageal reflux disease Hyperlipidemia with target LDL less than 100 Mast cell disease MDD (major depressive disorder), recurrent episode, mild Narcotic dependence Normal coronary arteries Ocular migraine Opioid dependence Pacemaker, Biotronik, inserted 10/29/14 Polypharmacy PTSD (post-traumatic stress disorder) PTSD (post-traumatic stress disorder) S/p REFUGIO-BSO Severe obesity (BMI 35.0-39.9) with comorbidity SVT (supraventricular tachycardia) ? Past Surgical History Esophagogastroduodenoscopy: 12/10/20 Colonoscopy: 01/04/20 Endoscopy: 01/04/20 Upper GI endoscopy: 10/09/16 Endoscopic retrograde cholangiopancreatography (ERCP); with sphincterotomy/papillotomy: 07/21/16 Colonoscopy: 06/26/16 Upper GI endoscopy: 06/25/16 Upper GI endoscopy: 12/13/15 PICC line placement: 01/28/15 Cardiac pacemaker: 10/2014 Total laparoscopic hysterectomy, left salpingo-oophrectomy: 08/28/13 L-4-L-5 discectomy/fusion with cages: 10/03/07 Laparoscopy with fulguration of lesion: 10/18/06 Excision of Bartholin's gland or cyst ? 31-MAY-2018 23:08:33<$>: 10/18/06 Upper gastrointestinal endoscopy including esophagus, stomach, and either the duodenum and/or jejunum as appropriate; with biopsy, single or multiple: 07/10/05 Esophagogastric fundoplasty; with fundic patch (Thal-Jimena procedure) Appendectomy RIGHT OVARY REMOVED CYST ??LEFT OVARY Cone biopsy of cervix uteri NEC SVD1, TOP1 Tonsillectomy - Spontaneous vaginal delivery PART OF RIGHT TUBE REMOVED RIGHT ANKLE SURGERY Laparoscopy GALLBLADDER REMOVED ? Social History Alcohol Details:??Frequency: 1-2 times per year. ??Type: Wine. Exercise Details:??Regular exercise: Yes. ??Exercise type: Walking. Home/Environment Details:??Living situation: Home/Independent. ??Lives with: Children, Spouse. Sexual Details:??Sexually involved in last 6 months: Yes. ??Sexual orientation: Heterosexual. Substance Abuse Details:??Use: Never. Tobacco Details:??Use: Former smoker, quit more than 30 days ago. ? Family History Mother: CAD - Coronary artery disease; Cancer of ovary; Endometriosis; Heart attack; Heart disease;Hyperlipidemia; Hypertension; Uterine cancer ?04-JUL-2016 02:49:48<$> Father: Unknown Aunt: Aneurysm ? Medications Home Medications Aspirin (Aspirin Enteric Coated 81 mg oral delayed release tablet)?1?tab(s)?81?Milligram?By Mouth?Daily Atorvastatin (atorvastatin 40 mg oral tablet)?1?tab(s)?40?Milligram?By Mouth?Daily BuPROpion (Wellbutrin SR 100 mg/12 hours oral tablet, extended release)?1?tab(s)?100?Milligram?By Mouth?Daily?for 30?Days Clonazepam (KlonoPIN 1 mg oral tablet)?1?tab(s)?1?Milligram?By Mouth?2 times a day?for 30?Days Cromolyn (cromolyn 20 mg/mL oral solution)?10?Milliliter?200?Milligram?By Mouth?4times a day?30 minutes before meals and at bedtime Fluoxetine (FLUoxetine 20 mg oral capsule)?40?Milligram?2?capsule?By Mouth?Daily Gabapentin (gabapentin 300 mg oral capsule)?300?Milligram?1?capsule?By Mouth?2 times a day HydroCORTisone (Solu-CORTEF Act-O-Vial 100 mg injection)?See Instructions?use daily SQ for adrenal insufficiency. 14 mg qam and 7 mg qpm please provide extra 2 mg vial for stress dosing. Lorazepam (Ativan 1 mg oral tablet)?1?tab(s)?1?Milligram?By Mouth?3 times a day?as needed?for anxiety Metoprolol (Metoprolol Tartrate 100 mg oral tablet)?1?tab(s)?By Mouth?2 times a day Montelukast (montelukast 10 mg oral tablet)?10?Milligram?1?tablet?By Mouth?Daily in PM Ondansetron (ondansetron 4 mg oral tablet, disintegrating)?2?tab(s)?8?Milligram?By Mouth?Every 8 hours?as needed?Nausea & Vomiting?for 3?Days Ondansetron (ondansetron 4 mg oral tablet, disintegrating)?1?tab(s)?4?Milligram?By Mouth?Every 6 hours?as needed?as needed for nausea/vomiting Oxycodone (oxyCODONE 5 mg oral tablet)?5?Milligram?1?tablet?By Mouth?Every 6 hours?as needed?as needed for pain Pantoprazole (Protonix 40 mg oral delayed release tablet)?40?Milligram?By Mouth?2 timesa day Potassium Chloride (potassium chloride 10 mEq oral tablet, extended release)?2?tab(s)?20?Milliequivalent?By Mouth?Daily?for 7?Days Prazosin (prazosin 2 mg oral capsule)?1?capsule?2?Milligram?By Mouth?Daily at bedtime?for 30?Days?if PO intake is low or BP low below 110/70 only take one cap Spironolactone (spironolactone 25 mg oral tablet)?1?tablet?By Mouth?Daily ? Results Recent Labs BLOOD COUNT & DIFF WBC 10.5 k/mm3 ()?? 10/18/2023 14:35 RBC 4.30 m/mm3 ()?? 10/18/2023 14:35 Hgb 12.6 Gm/dL ()?? 10/18/2023 14:35 Hct 37.7 % ()?? 10/18/2023 14:35 MCV 87.7 femtoliters ()?? 10/18/2023 14:35 MCH 29.3 pg ()?? 10/18/2023 14:35 MCHC 33.4 g/dL ()?? 10/18/2023 14:35 Platelet Count 330 k/mm3 ()?? 10/18/2023 14:35 RDW-SD 41.1 femtoliters ()?? 10/18/2023 14:35 MPV 10.4 femtoliters ()?? 10/18/2023 14:35 Nucleated RBC (Automated) 0.0 #/100 WBC'S ()?? 10/18/2023 14:35 Abs. NRBC 0.0 k/mm3 ()?? 10/18/2023 14:35 Abs. Neut 6.9 k/mm3 ()?? 10/18/2023 14:35 Abs. Lymph 2.8 k/mm3 ()?? 10/18/2023 14:35 Abs. [place]pton 0.7 k/mm3 ()?? 10/18/2023 14:35 Abs. Eo 0.0 k/mm3 ()?? 10/18/2023 14:35 Abs. Baso 0.0 k/mm3 ()?? 10/18/2023 14:35 Neut % 65.6 % ()?? 10/18/2023 14:35 Lymph % 26.8 % ()?? 10/18/2023 14:35 [place]pton % 6.5 % ()?? 10/18/2023 14:35 Eos % 0.3 % ()?? 10/18/2023 14:35 Baso % 0.3 % ()?? 10/18/2023 14:35 Imm Gran 0.5 % ()?? 10/18/2023 14:35 Abs. Imm Gran 0.1 k/mm3 ()?? 10/18/2023 14:35 ?? CHEM GENERAL Sodium 140 mmol/L ()?? 10/18/2023 14:35 Potassium 3.7 mmol/L ()?? 10/18/2023 14:35 Chloride 104 mmol/L ()?? 10/18/2023 14:35 Bicarbonate Level 22 mmol/L ()?? 10/18/2023 14:35 Anion Gap 14 ()?? 10/18/2023 14:35 Glucose Level 103 mg/dL (High)?? 10/18/2023 14:35 BUN 13 mg/dL ()?? 10/18/2023 14:35 Creatinine-Blood 0.7 mg/dL ()?? 10/18/2023 14:35 Estimated GFR Creatinine 110 ML/MIN/1.73 M2 ()?? 10/18/2023 14:35 Calcium 9.4 mg/dL ()?? 10/18/2023 14:35 Protein, Total 7.3 Gm/dL ()?? 10/18/2023 14:35 Albumin 4.2 Gm/dL ()?? 10/18/2023 14:35 Alkaline Phosphatase 136 units/L (High)?? 10/18/2023 14:35 AST (SGOT) 16 units/L ()?? 10/18/2023 14:35 ALT (SGPT) 19 units/L ()?? 10/18/2023 14:35 Bilirubin, Total 0.3 mg/dL ()?? 10/18/2023 14:35 Bilirubin, Direct 0.1 mg/dL ()?? 10/18/2023 14:35 Bilirubin, Indirect 0.2 mg/dL ()?? 10/18/2023 14:35 ?? MISC. CHEMISTRY Hold Green Top SPECIMEN DISCARDED AFTER 1 WEEK ()?? 10/18/2023 14:35 Hold Gel Top SPECIMEN DISCARDED AFTER 1 WEEK ()?? 10/18/2023 14:35 ?? UA/URINALYSIS Appear/Color, Urine YELLOW ()?? 10/18/2023 14:39 Clarity SL.CLOUDY (Abnormal)?? 10/18/2023 14:39 Specific [place], Urine >1.030 (High)?? 10/18/2023 14:39 pH, Urine 5.5 ()?? 10/18/2023 14:39 Albumin, Urine TRACE (Abnormal)?? 10/18/2023 14:39 Glucose, Urine NEGATIVE ()?? 10/18/2023 14:39 Ketones, Urine NEGATIVE ()?? 10/18/2023 14:39 Bilirubin, Urine NEGATIVE ()?? 10/18/2023 14:39 Hemoglobin, Urine 1+ (Abnormal)?? 10/18/2023 14:39 Nitrite, Urine NEGATIVE ()?? 10/18/2023 14:39 Leukocyte, Urine NEGATIVE ()?? 10/18/2023 14:39 Urobilinogen NORMAL mg/dL ()?? 10/18/2023 14:39 WBC's, Urine 3 /HPF ()?? 10/18/2023 14:39 RBC's, Urine <1 /HPF ()?? 10/18/2023 14:39 Bacteria SLIGHT HPF (Abnormal)?? 10/18/2023 14:39 Squamous Epith 5 /HPF ()?? 10/18/2023 14:39 Hyaline Cast 1 LPF ()?? 10/18/2023 14:39 Mucus SLIGHT /LPF ()?? 10/18/2023 14:39 Hold Urine Culture Testing available 48 hours from time of collection. ()?? 10/18/2023 14:39 ?? URINE OTHER Est Creatinine Clearance 100.51 mL/min ()?? 10/18/2023 14:58 ? EKG study * Event Display: ECG 12-Lead Authored Date: [id number] Please click on pdf link to open report * Event Display: ECG 12-Lead Authored Date: [id number] Ventricular Rate: 59 BPM Atrial Rate: 59 BPM P-R Interval: 150 ms QRS Duration: 84 ms Q-T Interval: 420 ms QTC Calculation(Bazett): 415 ms P Mcfarlan: 32 degrees R Mcfarlan: 12 degrees T Mcfarlan: 46 degrees Sinus bradycardia Minimal voltage criteria for LVH, may be normal variant ( R in aVL ) Borderline ECG When compared with ECG of 11-NOV-2023 10:27, No significant change was found Confirmed by LALITA WILLARD MD ([id number]) on 11/26/2023 10:05:55 PM [place]: LALITA WILLARD MD * Event Display: ECG 12-Lead Authored Date: [id number] Please click on pdf link to open report * Event Display: ECG 12-Lead Authored Date: [id number] Ventricular Rate: 61 BPM Atrial Rate: 61 BPM P-R Interval: 160 ms QRS Duration: 80 ms Q-T Interval: 442 ms QTC Calculation(Bazett): 444 ms P Mcfarlan: 39 degrees R Mcfarlan: 27 degrees T Mcfarlan: 50 degrees Normal sinus rhythm with intermittent AV pacing Normal ECG When compared with ECG of 30-OCT-2023 13:44, Limb leads are no longer reversed AV pacing is now present Confirmed by LALITA WILLARD MD [id number]) on 11/11/2023 8:49:51 PM [place]: LALITA WILLARD MD * Event Display: ECG 12-Lead Authored Date: [id number] Please click on pdf link to open report * Event Display: ECG 12-Lead Authored Date: [id number] Ventricular Rate: 64 BPM Atrial Rate: 64 BPM P-R Interval: 112 ms QRS Duration: 90 ms Q-T Interval: 444 ms QTC Calculation(Bazett): 458 ms P Mcfarlan: 149 degrees R Mcfarlan: 168 degrees T Mcfarlan: 145 degrees Suspect arm lead reversal, interpretation assumes no reversal Normal sinus rhythm Voltage criteria for left ventricular hypertrophy Nonspecific ST and T wave abnormality Abnormal ECG When compared with ECG of 18-OCT-2023 20:50, Limb leads are now reversed Confirmed by LALITA WILLARD MD ([id number]) on 11/01/2023 9:30:19 PM [place]: LALITA WILLARD MD * Event Display: EKG Authored Date: Heart * Event Display: Echocardiogram - Complete * Event Display: Echocardiogram - Complete Authored Date: [id number] Transthoracic Echocardiography Report (TTE) Patient Demographics Patient Name MARY ALICE IBRAHIM Date of Study 11/09/2023 Corporate Gender Female Facility Race Ethnicity Date of 1980 Height: 67 inches Age 43 year(s) Weight: 211 pounds Accession Number [id number] BSA: 2.07 m2 Room Number [id number] BMI: 33.05 kg/m2 Referring Physician Selina Marsh MD Interpreting True [place] Physician Ann-Marie WILCOX Relationship Executive Ok TIERNEY Myrick Bacteremia. Study Data Type of Study TTE procedure:Echo Complete-Doppler, Colorflow, M-Mode, Strain. Study Date11/09/2023 Start Time: 07:46 AM Study Location: [facility] Echo Study Status: Bedside Patient Status: Routine Technical Quality: Adequate Blood Pressure:117/89 mmHg EKG: Normal sinus rhythm HR: 61 bpm Allergies - Other allergy:(cefzit,compazine,inderal,lexapro,nardil,proranolol, zarelto,zoloft). 2D Measurements LV Diastolic Dimension: 4.3 cm LV Systolic Dimension: 2.7 cm LV Septum Diastolic: 1.3 cm LV PW Diastolic: 1.1 cm LA Dimension: 4.2 cm LA ESV (BP):34.5 ml LVOT Stroke Volume: 60.03 ml LA ESV Index: 17 ml/m2 Stroke Volume Index29 ml/m2 LVOT: 2.2 cm Cardiac Index:1.77 l/min/m2 Ascending Aorta:3.2 cm Doppler Measurements AV Peak Velocity: 123 cm/s MV Peak E-Wave: 52.8 cm/s AV Peak Gradient: 6.05 mmHg MV Peak A-Wave: 47 cm/s AV Mean Gradient: 4 mmHg MV E/A Ratio: 1.12 AV VTI:25.4 cm MV P1/2t: 69 msec LVOT Peak Velocity: 79 cm/s MV Mean Gradient: 1 mmHg LVOT VTI15.8 cm MV Area (continuity): 2.41 cm2 AV Area (Continuity):2.36 cm2 MV Deceleration Time: 235 msec MV Area (PHT): 3.19 cm2 TR Velocity:197 cm/s TR Gradient:15.52 mmHg PV Peak Velocity: 73.3 cm/s Estimated RAP:3 mmHg PV Peak Gradient: 2.15 mmHg Estimated RVSP: 18.5 mmHg E' Septal Velocity: 6.2 cm/s E' Lateral Velocity: 9.68 cm/s E/Med E':[id number] E/Lat E':5.975974 Cardiac Anatomy Left Ventricle/Interventricular Septum Normal left ventricular size and function with EF 55-60%. No focal wall motion abnormalities. The left ventricular wall thickness is mildly increased. Grade I diastolic dysfunction. Normal left atrial pressure. The average global longitudinal strain is -17%. Left Atrium/Interatrial Septum The left atrium is normal in size. There is lipomatous hypertrophy of the interatrial septum. Aortic Valve The aortic valve is tricuspid. There is no aortic stenosis or insufficiency. Mitral Valve Normal mitral valve structure. Trace regurgitation. No stenosis. Aorta The ascending aorta and aortic root are normal in size. Right Ventricle Normal right ventricular size and function. A pacer/ICD wire is seen in the right ventricle. Right Atrium The right atrium is normal in size. Right atrial pacemaker lead is present. Pulmonic Valve The pulmonic valve was not well visualized. Trace pulmonic regurgitation. No pulmonic stenosis. Tricuspid Valve The tricuspid valve is normal in structure and function. There is trace regurgitation. Pumonary Artery The pulmonary artery systolic pressure estimation is within normal limits. Venous Structures Normal IVC size and respiratory collapse. Pericardium/Extracardiac There is no pericardial effusion. Summary Normal left ventricular size and function with EF 55-60%. No focal wall motion abnormalities. Normal right ventricular size and function. There is no significant valve disease. Impressions No evidence of vegetation. Comparison Comparison is made to the study of September 14, 2023. There is no significant change. [facility] Progress note * Jeanne Soria RN: PERFORM, SIGN, VERIFY Event Display: Progress Note Hospital Authored Date: Patient: MARY ALICE IBRAHIM Age: 43 years Sex: Female : 1980 Associated Diagnoses: None Author: Jeanne Soria RN Findings Problem Related to Alteration in Comfort : Alteration in Comfort/new 12/01/2023 11:00 EDT Alteration in Comfort Related to Disease process Goals & Outcomes: Comfort Pt will report acceptable level of comfort & pain control, Pt will state importance of adhering to pain strategy regime, Pt will demonstrate necessary skills to manage pain, Non-verbal indicators will indicate comfort/pain control, Resolved problem, Goals/Outcomes met Interventions Implemented: Comfort Assess pain using appropriate pain scale/tools, Assess aggravating factors & prevent them accordingly, Assess alleviating factors & promote them accordingly Goals/Interventions, Comfort Yes Comfort, Problem Start 10/23/2023 2:53 Reviewed plan with, Comfort Patient Patient Progression, Comfort Pt progressing according to plan Comfort, Problem Ongoing Yes . Alteration in Gastrointestinal : Alteration in Gastrointestinal Func/new 12/01/2023 11:00 EDT Alteration in GI status Related to Constipation, Other: dyspepsia, abd pain, vomiting, constipation Goals & Outcomes, Gastrointestinal Establish a regular pattern of elimination for pt, Nutritional intake is adequate for metabolic needs, Pt will have a bowel movement prior to discharge, Pt willmaintain adequate GI function appropriate for pt, Pt will resume/maintain adequate hemodynamic status Interventions, Gastrointestinal Assess/monitor abdomen for distention, tenderness, Assess/monitor bowel pattern, bowel sounds, flatus, Assess/monitor number of bowel movements, Assess/monitor pt for nausea, vomiting, Assess if pt tolerating diet, Teach/encourage deep breath & cough exercises Goals/Interventions, Gastrointestinal Yes Gastrointestinal, Problem Start 10/23/2023 2:55 Reviewed plan with, Gastrointestinal Patient Patient Progression, Gastrointestinal Pt progressing according to plan . Nursing Data Cardiac Data. : Cardiac Data. 12/01/2023 10:23 EDT Cardiovascular Symptoms None Nail Bed Color, Fingers Kinney Nail Bed Color, Toes Kinney Skin Temperature Upper Extremities Warm Skin Temperature Lower Extremities Warm Capillary Refill < 3 seconds Radial Pulse, Left Normal Radial Pulse, Right Normal Dorsalis Pedis Pulse, Left Normal Dorsalis Pedis Pulse, Right Normal Cardiovascular WNL except . Gastrointestinal Data. : Gastrointestinal Data. 12/01/2023 10:23 EDT Gastrointestinal Symptoms Constipation, Cramping, Laxitave use Abdomen Non-tender, Semi-firm Bowel Sounds LUQ Present Bowel Sounds RUQ Present Bowel Sounds LLQ Present Bowel Sounds RLQ Present GI WNL except Normal Bowel Pattern Every other day . Integumentary Data. : Integumentary Data. 12/01/2023 10:24 EDT Skin Color Normal for ethnicity Skin Description Dry Skin Temperature Warm Skin Integrity Intact Skin Turgor Elastic Sensory Perception No impairment Moisture Rarely moist Activity Walks frequently Mobility No limitations Nutrition Adequate Friction and Shear No apparent problem Danial Score 22 Nursing Care Plan initiated/updated Yes Integumentary WNL 12/01/2023 10:23 EDT Skin Color Normal for ethnicity Skin Integrity Intact Activity Walks frequently Mobility No limitations Integumentary WNL except . Neurological Data. : Neurological Data. 12/01/2023 10:23 EDT Neurological Symptoms None Level of Consciousness Full Consciousness Orientated to person, place, time Person, Place, Time, Event Facial Symmetry Intact Characteristics of Speech Clear and normal Swallowing Difficulty None Strength LUE 5-Active movement against gravity & full resistance Strength RUE 5-Active movement against gravity & full resistance Strength LLE 5-Active movement against gravity & full resistance Strength RLE 5-Active movement against gravity & full resistance Tone LUE Normal Tone RUE Normal Tone LLE Normal Tone RLE Normal Sensation LUE Intact Sensation RUE Intact Sensation LLE Intact Sensation RLE Intact Gait No disturbance 1 - 10 Pain Scale Score 8 Pain Interventions Pharmacological, PRN medication, Repositioning, Rest Pain relief acceptable Yes Neuro WNL except Swallow - Neuro Normal . Respiratory/Pulmonary Data. : Respiratory/Pulmonary Data. 12/01/2023 10:23 EDT Respiratory Symptoms None Respiratory effort Unlabored Chest expansion Symmetrical Accessory Muscles use No Cough No cough Respiratory pattern Regular Left Upper Lobe Breath Sounds Clear Right Upper Lobe Breath Sounds Clear Right Middle Lobe Breath Sounds Clear Left Lower Lobe Breath Sounds Clear Right Lower Lobe Breath Sounds Clear Respiratory distress None Respiratory Treatment(s) Cough and deep breathe Respiratory WNL except 12/01/2023 7:00 EDT Mode of Delivery (Oxygen) Room air . Vital Signs : VITAL SIGNS SECTION 12/01/2023 11:00 EDT Temperature 98.3 DegF Temperature Route Oral Pulse Rate 68 bpm Respiratory Rate 20 br/min Systolic Blood Pressure 126 mm Hg Diastolic Blood Pressure 83 mm Hg Pulse Pressure 43 mm Hg Oxygen Saturation 98 % Liters per Minute 0 L/min Mode of Delivery (Oxygen) Room air . Evaluation (Patient alert and oriented x4. Able to ambulate independently to the bathroom and throughout the hallway. Patient states they have 7-8/10 pain. Administered PRN medication with minor relief noted. Patient denies any chest pain or pressure. Patient denies any shortness of breath, restingcomfortably on room air. Skin intact, no edema. +CSM. Patient compliant with medications. Additional relief measures instructed to patient as pain has not been well controlled. Safety measures reinforced. Call borjas within reach. Patient able to make needs known) * Saloni Ventura RN: MODIFY, SIGN, VERIFY, MODIFY, PERFORM Event Display: Progress Note Hospital Authored Date: Patient: MARY ALICE IBRAHIM Age: 43 years Sex: Female : 1980 Associated Diagnoses: None Author: Saloni Ventura RN Findings Problem Related to Alteration in Comfort : Alteration in Comfort/new 11/30/2023 22:00 EDT Alteration in Comfort Related to Disease process Goals & Outcomes: Comfort Pt will report acceptable level of comfort & pain control, Pt will state importance of adhering to pain strategy regime, Pt will demonstrate necessary skills to manage pain, Non-verbal indicators will indicate comfort/pain control, Resolved problem, Goals/Outcomes met Interventions Implemented: Comfort Assess pain using appropriate pain scale/tools, Assess aggravating factors & prevent them accordingly, Assess alleviating factors & promote them accordingly BH Goals/Interventions, Comfort Yes Comfort, Problem Start 10/23/2023 2:53 Reviewed plan with, Comfort Patient Patient Progression, Comfort Pt progressing according to plan Comfort, Problem Ongoing Yes . Alteration in Gastrointestinal : Alteration in Gastrointestinal Func/new 11/30/2023 22:00 EDT Alteration in GI status Related to Constipation, Other: dyspepsia, abd pain, vomiting, constipation Goals & Outcomes, Gastrointestinal Establish a regular pattern of elimination for pt, Nutritional intake is adequate for metabolic needs, Pt will have a bowel movement prior to discharge, Pt willmaintain adequate GI function appropriate for pt, Pt will resume/maintain adequate hemodynamic status Interventions, Gastrointestinal Assess/monitor abdomen for distention, tenderness, Assess/monitor abdominal girth & bowel function, Assess/monitor bowel pattern, bowel sounds, flatus, Assess/monitor number of bowel movements, Assess/monitor color, quantity, quality, consistency of stoo, Assess/monitor pt for nausea, vomiting, Assess/monitor intake & output, Assess if pt tolerating diet BH Goals/Interventions, Gastrointestinal Yes Gastrointestinal, Problem Start 10/23/2023 2:55 Reviewed plan with, Gastrointestinal Patient Patient Progression, Gastrointestinal Pt progressing according to plan . Nursing Data Vital Signs : VITAL SIGNS SECTION 11/29/2023 20:00 EDT Temperature 98.0 DegF Temperature Route Oral Pulse Rate 88 bpm Respiratory Rate 18 br/min Systolic Blood Pressure 131 mm Hg Diastolic Blood Pressure 88 mm Hg H Blood pressure sites Arm, right Pulse Pressure 43 mm Hg Oxygen Saturation 96 % Liters per Minute 0 L/min Mode of Delivery (Oxygen) Room air . Narrative/Incidental 7pm-11pm. 7pm-11pm Patient received awake and alert resting in bed breathing freely on room air. She is in no obvious distress. Compliant with assessment and her HS medications. Able to make her needs known. Ambulated in the hallway for some time. Requested multiple PRNs. Compliant with her HS medications along with PRN pain and sleep medications. Took them whole with water. Settled to bed. Will continue to monitor. 11pm-7am Periodic checks done. Patient asleep in bed breathing freely on room air. Left undisturbed. Awoke and was medicated with her Zofran. Reported itching and requested Benadryl and Zofran IV for nausea. Medicated as ordered with same PRN. Settled to bed. Nursing and collaborative care continues.. * Camila WILCOX, [place]: PERFORM Event Display: Progress Note Hospital Authored Date: [id number] Patient: ??MARY ALICE IBRAHIM ? Age:??43 Years?Sex:??Female?:??1980?? Subjective No acute events overnight Patient wants to leave tomorrow, discussed with ID she can use any cephalosporin orally??for the last few days of her antibiotics. Review of Systems Negative except above Objective Vital Signs?? Temperature: 97.7 DegF (11/30/23 08:24:00) Temperature Route: Oral (11/30/23 08:24:00) Pulse Rate: 65 bpm (11/30/23 10:30:00) Respiratory Rate: 21 br/min (11/30/23 11:31:00) Systolic Blood Pressure: 102 mm Hg (11/30/23 10:30:00) Diastolic Blood Pressure: 63 mm Hg (11/30/23 10:30:00) Blood pressure sites: Arm, right (11/30/23 08:24:00) Mean Arterial Pressure: 91 mm Hg (11/29/23 17:20:00) Pulse Pressure: 39 mm Hg (11/30/23 08:24:00) Oxygen Saturation: 96 % (11/30/23 08:24:00) Liters per Minute: 0 L/min (11/30/23 04:00:00) Mode of Delivery (Oxygen): Room air (11/30/23 08:24:00) Early Warning Score: 4 (11/30/23 12:02:14) ? Intake/Output? 10/19 01:37 11/29 07:00 11/28 07:00 11/27 07:00 11/26 07:00 ?? 11/29 14:19 11/29 14:19 11/29 06:59 11/28 06:59 11/27 06:59 Intake ?53825.7 ?240 ? 2160 ? 1484 ?995 Output ?76933 ?0 ?400 ?0 ?0 Net Total ?88222.7 ?240 ? 1760 ? 1484 ?995 ? Urine Count ?161 ?1 ?4 ?3 ?7 Emesis Count ?1 ?0 ?0 ?0 ?0 ? Therapeutic Activity Therapeutic Activities/Mobility/Balance?? No qualifying data available. ? Physical Exam Constitutional: Alert, in no distress. Oriented x??3 Respiratory: Clear to auscultation. No wheezing, rales or rhonchi. Cardiovascular: S1 S2 regular. No murmurs, no pitting edema Gastrointestinal: Abdomen soft, significant??epigastric pain (improving), non- distended. hypoactiveBS Neurologic: Moving all extremities Psychiatric: Normal mood and affect _ Inpatient Medications Medications (31) Active SCHEDULED: (19) BuPROPion 100 mg SR Tablet (Wellbutrin SR Tablet) ??100 mg, By Mouth, Daily Ceftriaxone 2 Gm Inj (Ceftriaxone Inj) ??2 Gm, IVPB, Every 24 hours Clonazepam 1 mg Tablet (KlonoPIN 1 mg oral tablet) ??1 mg, By Mouth, 2 times a day Enoxaparin 40 mg Inj (Enoxaparin Inj) ??40 mg 0.4 mL, Subcutaneous Injection, Daily Famotidine 20 mg Tablet (famotidine 20 mg oral tablet) ??20 mg, By Mouth, Daily before breakfast Fluoxetine 20 mg Capsule (FLUoxetine 20 mg oral capsule) ??40 mg, By Mouth, Daily Gabapentin 300 mg Capsule (gabapentin 300 mg oral capsule) ??300 mg, By Mouth, 3 times a day HydroCORTisone Sodium Succinate 100 mg Inj (HydroCORTisone Inj) ??7 mg, Subcutaneous Injection, Daily at bedtime HydroCORTisone Sodium Succinate 100 mg Inj (HydroCORTisone Inj) ??14 mg, Subcutaneous Injection, Daily Lactulose 20 Gm/30mL Syrup (lactulose 10 gm/15 ml oral syrup) ??20 Gm 30 mL, By Mouth, 4 times a day Melatonin 3 mg Tablet (melatonin 3 mg oral tablet) ??9 mg, By Mouth, Daily at bedtime Metoprolol 50 mg Tablet (metoprolol 100 mg oral tablet) ??100 mg, By Mouth, 2 times a day Montelukast 10 mg Tablet (montelukast 10 mg oral tablet) ??10 mg, By Mouth, Daily Ondansetron 4 mg ODT (Zofran ODT 4 mg oral tablet, disintegrating) ??4 mg, By Mouth, Every 8 hours Pantoprazole 40 mg EC Tablet (Protonix 40 mg oral delayed release tablet) ??40 mg, By Mouth, 2 times a day before breakfast and dinne Prazosin 1 mg Capsule (prazosin 1 mg oral capsule) ??2 mg, By Mouth, Daily at bedtime Spironolactone 25 mg Tablet (spironolactone 25 mg oral tablet) ??25 mg, By Mouth, Daily Trazodone 50 mg Tablet (traZODone 50 mg oral tablet) ??150 mg, By Mouth, Daily at bedtime Vitamin D 50,000 International Unit Capsule (Vitamin D 46120 iu oral capsule) ??50,000 units, By Mouth, Every week CONTINUOUS: (0) PRN: (12) Acetaminophen 325 mg Tablet (Acetaminophen Tablet) ??650 mg, By Mouth, Every 4 hours Acetaminophen/Butalbital/Caffeine Tablet (Fioricet Tablet) ??1 tablet, By Mouth, Every 4 hours Albuterol 90mcg/Inhalation Inhaler HFA (Albuterol 90 mcg Inhaler) ??180 mcg 2 puffs, Inhalation, Every 4 hours diphenhydrAMINE 25 mg Tablet (Benadryl Tablet) ??50 mg, By Mouth, Every 8 hours Docusate Sodium 100 mg Capsule (Colace sodium 100 mg oral capsule) ??100 mg 1 capsule, By Mouth, 2 times a day Enema Mineral Oil Laxative Adult (Adult Mineral Oil Enema) ??1 each, Rectally, Once HYDROmorphone 2 mg Tablet (Dilaudid 2 mg oral tablet) ??2 mg, By Mouth, Every 12 hours Ibuprofen 600 mg Tablet (ibuprofen 600 mg oral tablet) ??600 mg, By Mouth, 3 times a day Lorazepam 0.5 mg Tablet (Ativan 0.5 mg oral tablet) ??0.5 mg, Sublingual, 3 times a day Ondansetron 2mg/mL Inj (2mL Vial) (Zofran Inj) ??4 mg, IV Push, Every 6 hours Senna Tablet (Senna 8.6 mg oral tablet) ??17.2 mg 2 tablet, By Mouth, Daily Zolpidem 5 mg Tablet (Ambien 5 mg oral tablet) ??5 mg, By Mouth, Daily at bedtime ? 72 Hour Antibiotic History Active Antibiotics Calendar Day Last Administered First Administered Ceftriaxone??2 Gm, 200 mL/hr, IVPB, Every 24 hours ?5 11/29/2023 16:45 11/26/2023 18:40 ? Results Recent Labs CHEM GENERAL Sodium 140 mmol/L ()?? 11/30/2023 06:27 Potassium 3.9 mmol/L ()?? 11/30/2023 06:27 Chloride 103 mmol/L ()?? 11/30/2023 06:27 Bicarbonate Level 27 mmol/L ()?? 11/30/2023 06:27 Anion Gap 10 ()?? 11/30/2023 06:27 Glucose Level 81 mg/dL ()?? 11/30/2023 06:27 BUN 9 mg/dL ()?? 11/30/2023 06:27 Creatinine-Blood 1.0 mg/dL ()?? 11/30/2023 06:27 Estimated GFR Creatinine 72 ML/MIN/1.73 M2 ()?? 11/30/2023 06:27 Calcium 8.7 mg/dL ()?? 11/30/2023 06:27 ?? URINE OTHER Est Creatinine Clearance 70.35 mL/min ()?? 11/30/2023 07:26 ? Assessment/Plan Assessment:??43 years old morbid obese female with history of PTSD, opioid seeking behavior, depression, personality disorder, chronic constipation, status post lumbar spine fusion surgery, SVT, status pacemaker placement and secondary adrenal insufficiency. The patient is hospitalized at [facility] for acute worsening epigastric pain requiring large amount of IV opioid pain medication. While in the hospital, patient developed new fever on November 05. She was found to have a streptococcal bacteremia, required IV antibiotic treatment. ?? Secondary adrenal insufficiency (E27.49): Adrenal crisis: Did receive IV hydrocortisone during this hospitalization, she is on subcutaneous hydrocortisone 14 mg in the morning and 7 mg in the evening. Cortisol levels were checked which were low at 3.1, discussed the case with endocrinology who mentioned that since she is on hydrocortisone the cortisol levels are expected to be low. Finished taper, back on Home dose of SubQ HC 14mg in am and 7mg in PM ? Bacteremia (R78.81): Fever (R50.9): New onset of fever. No dysuria, no sore throat, no cough. No acute worsening abdominal pain. No joint pain, no muscle tenderness. chest x-ray negative for infiltrate, UA ruled out a UTI. Abdominal pelvic CT scan without IV contrast to rule out obstructing stone or pyelonephritis. COVID-19 flu, RSV negative. Blood culture grew Streptococcus species. Patient is known for pacemaker placement as well as lumbar spine fusion surgery. Echocardiogram obtained which ruled out vegetation. Thoracic and lumbar spine CT scan with IV contrast showed no signs of acute infection, does so possible sigmoid colitis. Left midline tip culture no growth. CT of lumbar spine also negative for any acu te infection Plan Continue IV ceftriaxone 2 g IV per ID consult, duration 4 weeks from last negative cultures last day of ABx 12/06/23. Patient wants to leave on 11/30 due to family commitment, discussed wiuth ID ok to leave on any PO cephalosporin for the last few days of the antibiotics. Obtained PICC line 11/10 ? Opioid dependence (F11.20): Abdominal pain (R10.9): Epigastric pain requiring high-dose IV hydromorphone treatment. No clear etiology. Prior testing study rule out gastroparesis in 2020, patient also status post colonoscopy, EGD in August 2023. No significant pathology. Suspect functional abdominal pain in the setting of psychiatric illness. I reviewed her multiple abdominal CT scan in 2023 x 6 and 2023 x 2, no acute etiology. Patient has been hospitalized since October 19, has been receiving hydromorphone. High potential for opioid addiction and potential withdrawal. Patient has been receiving hydromorphone PO every 6 hours as needed for breakthrough pain, tolerating well. there is concern for possible gastroparesis, she is allergic to Regaln with rash. Unfortunately Domperidone is not available, hence we will schedule Zofran. Barium swallow with upper GI series shows collection of contrast at the medial aspect of the wrap differentials include diverticulum, plication defect or ulcer however this was seen 3 years ago on a previous exam. Per GI still does not explain her vomiting. GI does believe that it is related to constipation. Her x-ray from this week shows constipation. Still having abdominal pain Called patients primary GI doctor's office awaiting a call back Plan Discontinued IV dilaudid, taper down p.o. Dilaudid to 2 mg every 12 hours TAYO zofran 4mg TID and with 4mg Q6 as PRN Continue PPI. Encourage p.o. intake, advance diet as tolerated. Fasting lipid panel, LDL 39 mg/dL DC statin. ?? Constipated (K59.00): Continue MiraLAX, stool softener. No BM for over 3 weeks despite multiple PO meds, plus lactulose, Supp, enema, 2 L of GoLytely, Linzess and Relistor Requested pharmacy for methylnaltrexone however denied by pharmacy at [facility]. No BM yet, will continue with current regiment. Per patient no BM in 3 weeks, she has been finishing 25-50% of her meals, has been ambulating. there is a possibility that she had BM but not telling us. Continue with Miralax, senna, Lactulose. Gi follow up appreciated. Dr. Roper saw her on 11/18/23: s/p 3 doses of Relistor SubQ Called patient's Primary GI office, awaiting call from Dr. Montalvo ?? Asthma (J45.909): Stable no signs acute exacerbation ? Chronic back pain (M54.9): Patient is known for history of lumbar spinal stenosis surgery in the past. Repeated CT scan obtained, no signs of hardware or soft tissue infection Essential hypertension (I10): Continue home medication, beta-trish Intractable vomiting (R11.10): Self-limiting. Encourage p.o. intake. Personality disorder (F60.9): : Eating disorder (F50.9): : MDD (major depressive disorder), recurrent episode, mild (F33.0): : PTSD (post-traumatic stress disorder) (F43.10): Continue gabapentin Paroxysmal supraventricular tachycardia (I47.10): Status post pacemaker ? VTE Prophylaxis: Lovenox Code Status: Full code ?? Ongoing Medical Necessity: pain/nausea/constipation/Need to finish Abx inhouse. Discharge Planning: Home after IV ABx completion Note * Jeanne Soria RN: PERFORM Event Display: Discharge/Transfer Note Hospital Authored Date: [id number] Nursing Discharge Note Entered On: 12/01/2023 12:47 EDT Performed On: 12/01/2023 12:47 EDT by Jeanne Soria RN Nursing Discharge Note 2 Discharge Time : 12/01/2023 12:47 EDT Discharge Level of Care at Discharge : Home/Prison/Foster Care Patient Left Unit Via : Ambulatory Patient Accompanied Off Unit with : Responsible adult DC Instructions Provided & Signed by Pt : Yes Patient Understands D/C Instructions : Yes Patient Instructions Discharge Signed : Yes Did Pt have Specialty Bed or Wound Vac : No Jeanne Soria RN - 12/01/2023 12:47 EDT * Spike WILCOX, Deana: PERFORM, MODIFY Event Display: Discharge/Transfer Note Hospital Authored Date: [id number] Patient: ??MARY ALICE IBRAHIM ? Age:??43 Years?Sex:??Female?:??1980?? Patient Information Discharge Location: Med Surg Primary Care Physician: Dash WILCOX (NM) , Paola Anderson Admit Date/Time: 10/19/23 01:37 Discharge Disposition Discharge Disposition: Home: No Services Discharge Diagnosis Abdominal pain (R10.9) Asthma (J45.909) Bacteremia (R78.81) Chronic back pain (M54.9) Constipated (K59.00) Eating disorder (F50.9) Essential hypertension (I10) Fever (R50.9) Hypokalemia (E87.6) Intractable vomiting (R11.10) MDD (major depressive disorder), recurrent episode, mild (F33.0) Opioid dependence (F11.20) PTSD (post-traumatic stress disorder) (F43.10) Paroxysmal supraventricular tachycardia (I47.10) Personality disorder (F60.9) Secondary adrenal insufficiency (E27.49) Pacemaker, Biotronik, inserted 10/29/14 ?? _ Discharge Medications Aspirin (Aspirin Enteric Coated 81 mg oral delayed release tablet)?1?tab(s)?81?Milligram?By Mouth?Daily BuPROpion (Wellbutrin SR 100 mg/12 hours oral tablet, extended release)?1?tab(s)?100?Milligram?By Mouth?Daily?for 30?Days Cefdinir (cefdinir 300 mg oral capsule)?1?capsule?300?Milligram?By Mouth?Every 12hours?for 5?Days Clonazepam (KlonoPIN 1 mg oral tablet)?1?tab(s)?1?Milligram?By Mouth?2 times a day?for 30?Days Cromolyn (cromolyn 20 mg/mL oral solution)?10?Milliliter?200?Milligram?By Mouth?4times a day?30 minutes before meals and at bedtime Fluoxetine (FLUoxetine 20 mg oral capsule)?40?Milligram?2?capsule?By Mouth?Daily Gabapentin (gabapentin 300 mg oral capsule)?300?Milligram?1?capsule?By Mouth?2 times a day HydroCORTisone (Solu-CORTEF Act-O-Vial 100 mg injection)?See Instructions?use daily SQ for adrenal insufficiency. 14 mg qam and 7 mg qpm please provide extra 2 mg vial for stress dosing. Hydromorphone (Dilaudid 2 mg oral tablet)?2?Milligram?By Mouth?Every 12 hours?as needed?Pain , Moderate?for 7?Days Lactulose (lactulose 10 gm/15 ml oral syrup)?30?Milliliter?20?gram?By Mouth?4 times a day?for 14?Days Metoprolol (Metoprolol Tartrate 100 mg oral tablet)?1?tab(s)?By Mouth?2 times a day Montelukast (montelukast 10 mg oral tablet)?10?Milligram?1?tablet?By Mouth?Daily in PM Ondansetron (ondansetron 4 mg oral tablet, disintegrating)?1?tab(s)?4?Milligram?By Mouth?Every 6 hours?as needed?as needed for nausea/vomiting Pantoprazole (Protonix 40 mg oral delayed release tablet)?40?Milligram?By Mouth?2 timesa day Polyethylene Glycol 3350 (MiraLax oral powder for reconstitution)?17?gram?By Mouth?Daily?dissolve in 4 to 8 oz of beverage Prazosin (prazosin 2 mg oral capsule)?1?capsule?2?Milligram?By Mouth?Daily at bedtime?for 30?Days?if PO intake is low or BP low below 110/70 only take one cap Simethicone (simethicone 80 mg oral tablet, chewable)?80?Milligram?Chew?3 times a day?as needed?for 10?Days?Gas Spironolactone (spironolactone 25 mg oral tablet)?1?tablet?By Mouth?Daily Zolpidem (Ambien 5 mg oral tablet)?5?Milligram?By Mouth?Daily at bedtime?as needed?Sleep ? Medications Started Zolpidem (Ambien 5 mg oral tablet)?5?Milligram?By Mouth?Daily at bedtime?as needed?Sleep. Hydromorphone (Dilaudid 2 mg oral tablet)?2?Milligram?By Mouth?Every 12 hours?as needed?Pain , Moderate?for 7?Days. Cefdinir (cefdinir 300 mg oral capsule)?1?capsule?300?Milligram?By Mouth?Every 12hours?for 5?Days. Lactulose (lactulose 10 gm/15 ml oral syrup)?30?Milliliter?20?gram?By Mouth?4 times a day?for 14?Days. Miralax. Medications Discontinued Atorvastatin. Doses Changed None. Allergies Allergies ?(Active and Proposed Allergies Only) droperidol-fentanyl? (Severity: Unknown severity, Onset: Unknown) ?Comments: Only allergic to droperidol NOT fentanyl. It won't let me add only the droperidol. RXN was sucidal thoughts ?with tremors Haldol? (Severity: Unknown severity, Onset: Unknown) Compazine? (Severity: Unknown severity, Onset: Unknown) ?Reactions: Hives, severe anxiety Xarelto? (Severity: Unknown severity, Onset: Unknown) ?Reactions: rash Cefzil? (Severity: Unknown severity, Onset: Unknown) ?Reactions: Hives Nardil? (Severity: Unknown severity, Onset: Unknown) ?Reactions: C/O - a headache, N&V - Nausea and vomiting, Palpitations - rapid propranolol? (Severity: Unknown severity, Onset: Unknown) ?Reactions: Rash Reglan? (Severity: Unknown severity, Onset: Unknown) ?Reactions: severe anxiety~panic Inderal? (Severity: Unknown severity, Onset: Unknown) ?Reactions: n/v,tachcardia Zoloft? (Severity: Unknown severity, Onset: Unknown) ?Reactions: tachycardia, n/v Lexapro? (Severity: Unknown severity, Onset: Unknown) ?Reactions: n/v ? Future Appointments Wednesday 2:00 PM EDT ?? With: Manda Cheng MD Where: [facility] [address] [place] [address]- Status: Pending 2023 7:45 AM EDT ?? Where: [facility] [address] [place] [address]- Status: Pending Hospital Course ? 43 years old morbid obese female with history of PTSD, opioid seeking behavior, depression, personality disorder, chronic constipation, status post lumbar spine fusion surgery, SVT, status pacemaker placement and secondary adrenal insufficiency. [facility] requiring large amount of IV opioid pain medication. While in the hospital, patient developed new fever on November 05. She was found to have a streptococcal bacteremia, required IV antibiotic treatment. ?? Secondary adrenal insufficiency (E27.49): Adrenal crisis: Did receive IV hydrocortisone during this hospitalization, she is on subcutaneous hydrocortisone 14 mg in the morning and 7 mg in the evening. Cortisol levels were checked which were low at 3.1, discussed the case with endocrinology who mentioned that since she is on hydrocortisone the cortisol levels are expected to be low. Finished taper, back on Home dose of SubQ HC 14mg in am and 7mg in PM. ? Bacteremia (R78.81): Fever (R50.9): New onset of fever. No dysuria, no sore throat, no cough. No acute worsening abdominal pain. No joint pain, no muscle tenderness. chest x-ray negative for infiltrate, UA ruled out a UTI. Abdominal pelvic CT scan without IV contrast to rule out obstructing stone or pyelonephritis. COVID-19 flu, RSV negative. Blood culture grew Streptococcus species. Patient is known for pacemaker placement as well as lumbar spine fusion surgery. Echocardiogram obtained which ruled out vegetation. Thoracic and lumbar spine CT scan with IV contrast showed no signs of acute infection, does so possible sigmoid colitis. Left midline tip culture no growth. CT of lumbar spine also negative for any acute infection Plan Continue IV ceftriaxone 2 g IV per ID consult, duration 4 weeks from last negative cultures last day of ABx 12/06/23. Patient wants to leave on 11/30 due to family commitment, discussed wiuth ID ok to leave on any PO cephalosporin for the last few days of the antibiotics. Will??DC of PO cefdinir??for 5 more days. ?? Opioid dependence (F11.20): Abdominal pain (R10.9): Epigastric pain requiring high-dose IV hydromorphone treatment. No clear etiology. Prior testing study rule out gastroparesis in 2020, patient also status post colonoscopy, EGD in August 2023. No significant pathology. Suspect functional abdominal pain in the setting of psychiatric illness. I reviewed her multiple abdominal CT scan in 2022 x 6 and 2023 x 2, no acute etiology. Patient has been hospitalized since October 19, has been receiving hydromorphone. High potential for opioid addiction and potential withdrawal. Patient has been receiving hydromorphone PO every 6 hours as needed for breakthrough pain, tolerating well. there is concern for possible gastroparesis, she is allergic to Regaln with rash. Unfortunately Domperidone is not available, hence we will schedule Zofran. Barium swallow with upper GI series shows collection of contrast at the medial aspect of the wrap differentials include diverticulum, plication defect or ulcer however this was seen 3 years ago on a previous exam. Per GI still does not explain her vomiting. GI does believe that it is related to constipation. Her x-ray from this week shows constipation. Still having abdominal pain Called patients primary GI doctor's office awaiting a call back Plan Discontinued IV dilaudid, taper down p.o. Dilaudid to 2 mg every 12 hours Continue PPI. Encourage p.o. intake, advance diet as tolerated. Fasting lipid panel, LDL 39 mg/dL DC statin. ?? Constipated (K59.00): Continue MiraLAX, stool softener. No BM for over 3 weeks despite multiple PO meds, plus lactulose, Supp, enema, 2 L of GoLytely, Linzess and Relistor Requested pharmacy for methylnaltrexone however denied by pharmacy at [facility]. No BM yet, will continue with current regiment. Per patient no BM in 3 weeks, she has been finishing 25-50% of her meals, has been ambulating. there is a possibility that she had BM but not telling us. Continue with Miralax, Lactulose. Gi follow up appreciated. Dr. Roper saw her on 11/18/23: s/p 3 doses of Relistor SubQ Called patient's Primary GI office. Has appointment on next week. ?? Asthma (J45.909): Stable no signs acute exacerbation ? Chronic back pain (M54.9): Patient is known for history of lumbar spinal stenosis surgery in the past. Repeated CT scan obtained, no signs of hardware or soft tissue infection Essential hypertension (I10): Continue home medication, beta-trish Intractable vomiting (R11.10): Self-limiting. Encourage p.o. intake.Continue zofran. MDD (major depressive disorder), recurrent episode, mild PTSD (post-traumatic stress disorder) (F43.10): Continue gabapentin Paroxysmal supraventricular tachycardia (I47.10): Status post pacemaker ? Objective Measurements?? Height: 170 cm (11/29/23) Weight: 93.2 kg (12/01/23) Dry Weight: 103.6 kg (11/07/23) Body Mass Index:??33.22 kg/m2??Critical (11/11/23) ? Vital Signs?? Temperature: 97.6 DegF (12/01/23 07:00:00) Temperature Route: Oral (12/01/23 07:00:00) Pulse Rate: 62 bpm (12/01/23 07:00:00) Respiratory Rate: 16 br/min (12/01/23 07:00:00) Systolic Blood Pressure: 103 mm Hg (12/01/23 07:00:00) Diastolic Blood Pressure: 68 mm Hg (12/01/23 07:00:00) Blood pressure sites: Arm, right (12/01/23 04:00:00) Pulse Pressure: 35 mm Hg (12/01/23 07:00:00) Oxygen Saturation: 98 % (12/01/23 07:00:00) Liters per Minute: 0 L/min (12/01/23 07:00:00) Mode of Delivery (Oxygen): Room air (12/01/23 07:00:00) Early Warning Score: 2 (12/01/23 07:42:05) ? . Physical Exam ?? General: Lying comfortably in bed,no evident distress Cardiac: S1 + S2 + 0, no murmurs heard Respiratory: CTA, No wheezes, Rales or crackles heard Abdomen: soft, nondistended, nontender Extremities: No edema or cyanosis present Neurological: AO X3,cranial nerves grossly normal? Pending Results Add On Lab Order ordered on 11/05/2023 Add On Lab Order ordered on 11/07/2023 Add On Lab Order ordered on 11/09/2023 Add On Lab Order ordered on 11/09/2023 Patient Education Titles Viral Diarrhea (Adult)?? Vomiting (Adult)?? Follow-Up Appointments Added Follow Up ?Time Frame ?Comments Dash WILCOX (NM) , Paola Anderson?1 to 2 weeks Post Discharge Care Discharge ?DC home after IV ceftriaxone today., 12/01/23 9:39:00 EDT Home Health Face to Face ^HomeHealthFTF Results Discharge Labs BLOOD COUNT & DIFF WBC 6.2 k/mm3 ()?? 11/21/2023 06:10 RBC 4.08 m/mm3 (Low)?? 11/21/2023 06:10 Hgb 11.4 Gm/dL (Low)?? 11/21/2023 06:10 Hct 36.5 % ()?? 11/21/2023 06:10 MCV 89.5 femtoliters ()?? 11/21/2023 06:10 MCH 27.9 pg ()?? 11/21/2023 06:10 MCHC 31.2 g/dL (Low)?? 11/21/2023 06:10 Platelet Count 199 k/mm3 ()?? 11/21/2023 06:10 RDW-SD 43.9 femtoliters ()?? 11/21/2023 06:10 MPV 10.5 femtoliters ()?? 11/21/2023 06:10 Nucleated RBC (Automated) 0.0 #/100 WBC'S ()?? 11/21/2023 06:10 Abs. NRBC 0.0 k/mm3 ()?? 11/21/2023 06:10 Abs. Neut 2.2 k/mm3 ()?? 11/09/2023 07:31 Abs. Lymph 2.3 k/mm3 ()?? 11/09/2023 07:31 Abs. Upton 0.4 k/mm3 ()?? 11/09/2023 07:31 Abs. Eo 0.1 k/mm3 ()?? 11/09/2023 07:31 Abs. Baso 0.0 k/mm3 ()?? 11/09/2023 07:31 Neut % 44.0 % ()?? 11/09/2023 07:31 Lymph % 46.0 % (High)?? 11/09/2023 07:31 Upton % 8.0 % ()?? 11/09/2023 07:31 Eos % 2.0 % ()?? 11/09/2023 07:31 Baso % 0.0 % ()?? 11/09/2023 07:31 Platelet Estimate ADEQUATE ()?? 11/09/2023 07:31 Imm Gran 0.8 % ()?? 11/06/2023 05:56 Abs. Imm Gran 0.1 k/mm3 ()?? 11/06/2023 05:56 ? CARDIAC CK, Total 50 units/L ()?? 11/07/2023 06:31 High Sensitivity Troponin (HSTnT) <6 ng/L ()?? 11/19/2023 22:38 ?? CHEM GENERAL Sodium 140 mmol/L ()?? 11/30/2023 06:27 Potassium 3.9 mmol/L ()?? 11/30/2023 06:27 Chloride 103 mmol/L ()?? 11/30/2023 06:27 Bicarbonate Level 27 mmol/L ()?? 11/30/2023 06:27 Anion Gap 10 ()?? 11/30/2023 06:27 Glucose Level 81 mg/dL ()?? 11/30/2023 06:27 BUN 9 mg/dL ()?? 11/30/2023 06:27 Creatinine-Blood 1.0 mg/dL ()?? 11/30/2023 06:27 Estimated GFR Creatinine 72 ML/MIN/1.73 M2 ()?? 11/30/2023 06:27 Calcium 8.7 mg/dL ()?? 11/30/2023 06:27 Phosphorus 2.7 mg/dL ()?? 11/10/2023 05:20 Magnesium 1.8 mg/dL ()?? 11/21/2023 06:10 Protein, Total 6.0 Gm/dL (Low)?? 11/09/2023 07:31 Albumin 3.6 Gm/dL ()?? 11/15/2023 06:55 AG Ratio 1.2 ()?? 11/09/2023 07:31 Alkaline Phosphatase 99 units/L ()?? 11/09/2023 07:31 Lipase 11 units/L (Low)?? 10/24/2023 05:52 AST (SGOT) 21 units/L ()?? 11/09/2023 07:31 ALT (SGPT) 32 units/L ()?? 11/09/2023 07:31 Bilirubin, Total 0.3 mg/dL ()?? 11/09/2023 07:31 Bilirubin, Direct 0.1 mg/dL ()?? 10/23/2023 05:44 Bilirubin, Indirect 0.1 mg/dL ()?? 10/23/2023 05:44 Lactate 2.3 mmol/L (High)?? 11/05/2023 21:12 C-Reactive Protein <0.3 mg/dL ()?? 10/19/2023 04:32 ?? ENDOCRINE/TUMOR MARKER TSH 0.96 uIU/mL ()?? 10/19/2023 04:32 Cortisol Level 3.1 ??g/dL ()?? 11/09/2023 07:31 ?? HEME OTHER Sed Rate 9 mm/hr ()?? 10/19/2023 04:32 Hold Lavender Top SPECIMEN DISCARDED AFTER 24 HOURS. ()?? 11/11/2023 09:49 Hold Blue Top SPECIMEN DISCARDED AFTER 4 HOURS. ()?? 11/05/2023 21:12 ? IMMUNOLOGY GENERAL Prealbumin 19.6 mg/dL (Low)?? 11/15/2023 06:55 ? LIPID STUDIES Cholesterol 96 mg/dL ()?? 11/09/2023 07:31 Triglycerides 162 mg/dL (High)?? 11/09/2023 07:31 HDL Cholesterol 25 mg/dL (Low)?? 11/09/2023 07:31 LDL Cholesterol 39 mg/dL ()?? 11/09/2023 07:31 Non HDL Cholesterol 71 mg/dL ()?? 11/09/2023 07:31 ? MISC. CHEMISTRY 25 OH-Vitamin D Level 15.6 ng/mL (Low)?? 11/09/2023 07:31 Hold Green Top SPECIMEN DISCARDED AFTER 1 WEEK ()?? 11/05/2023 21:12 Hold Gel Top SPECIMEN DISCARDED AFTER 1 WEEK ()?? 11/08/2023 08:05 Hold Jefferson Top SPECIMEN DISCARDED AFTER 1 WEEK ()?? 11/05/2023 12:15 ?? UA/URINALYSIS Appear/Color, Urine YELLOW ()?? 11/21/2023 05:05 Clarity CLEAR ()?? 11/21/2023 05:05 Specific Huron, Urine 1.020 ()?? 11/21/2023 05:05 pH, Urine 5.5 ()?? 11/21/2023 05:05 Albumin, Urine NEGATIVE ()?? 11/21/2023 05:05 Glucose, Urine NEGATIVE ()?? 11/21/2023 05:05 Ketones, Urine NEGATIVE ()?? 11/21/2023 05:05 Bilirubin, Urine NEGATIVE ()?? 11/21/2023 05:05 Hemoglobin, Urine NEGATIVE ()?? 11/21/2023 05:05 Nitrite, Urine NEGATIVE ()?? 11/21/2023 05:05 Leukocyte, Urine 1+ (Abnormal)?? 11/21/2023 05:05 Urobilinogen NORMAL mg/dL ()?? 11/21/2023 05:05 WBC's, Urine 9 /HPF (High)?? 11/21/2023 05:05 RBC's, Urine <1 /HPF ()?? 11/21/2023 05:05 Bacteria SLIGHT HPF (Abnormal)?? 10/18/2023 14:39 Squamous Epith 4 /HPF ()?? 11/21/2023 05:05 Hyaline Cast 3 LPF (High)?? 11/21/2023 05:05 Mucus SLIGHT /LPF ()?? 11/21/2023 05:05 Hold Urine Culture Testing available 48 hours from time of collection. ()?? 11/15/2023 06:20 ? URINE OTHER Est Creatinine Clearance 70.35 mL/min ()?? 11/30/2023 07:26 ? VIROLOGY Influenza A PCR NEGATIVE ()?? 11/05/2023 22:30 Influenza B PCR NEGATIVE ()?? 11/05/2023 22:30 RSV PCR NEGATIVE ()?? 11/05/2023 22:30 COVID-19 PCR Specimen Source NASAL ()?? 11/05/2023 22:30 COVID-19 PCR Result NEGATIVE ()?? 11/05/2023 22:30 ? 35_ minutes spent on discharge * Cydney Velez RN: PERFORM Event Display: Patient Education/Instruction Authored Date: Inpatient Adult Discharge Instructions. [address] [id number] Name: MARY ALICE IBRAHIM : 1980?? Visit: 10/19/2023 01:37?? Current Date: 12/01/2023 11:38 ?? Account: [id number]?? Inpatient Adult Discharge Instructions We would like to thank you for allowing us to assist you with your healthcare needs. The following includes patient education materials and information regarding your injury/illness. Our entire staffstrives to provide an excellent experience for our patients and their families. PLEASE ENSURE YOU FOLLOW-UP PER THE INSTRUCTIONS BELOW! ?? YOUR OPINION IS IMPORTANT TO US! Please complete the survey you may receive by mail or email. Your feedback will be used to make improvements to the healthcare experiences of our patients and their families. Surveys are administered by [employer]. ?? If further treatment with your primary care physician or another doctor is recommended, it is important for you to keep the appointment. Call your primary care physician or return to the Emergency Department immediately if your condition worsens, fails to improve, or new symptoms develop. If you need to find a doctor, you can call [facility] for a referral at [phone] or toll free at [phone] ([phone]) or log in to [email or web address] ?? [facility], in keeping with [facility] guidance, no longer requires face masks for staff, patientsor visitors in most situations. Similiar to time spent indoors at other locations, there is the chance that you were exposed to repiratory viruses during your time with us (such as flu or COVID-19). If you develop symptoms concerning for a viral respiratory infection, please seek testing (and treatment if indicated) from your medical provider or home test kit. ?? You can view and manage your care through the patient portal or by using a health care harman of your choosing. [employer] is a website that allows you to securely view your medical information including your hospital discharge summary, office visit summaries, medications and follow-up visits. You can also request appointments, renew medications, and request access to your medical information using a health care harman of your choosing, or just ask a question. You can enroll at [email or web address] or register during your next office visit. You have been discharged from [facility], Patient Care Unit: Med Surg??. If you have any questions regarding these instructions, including results of studies pending, afteryou leave, please call us and we will be happy to assist you 12/04. [facility] Your Care Team Attending Physician Deana Lala MD?? Consulting Providers Deana Lala MD?? Discharging Providers Deana Lala MD Reason for Your Visit NVD x 4 days?? Your Diagnosis Abdominal pain Asthma Bacteremia Constipated Eating disorder Essential hypertension Fever Hypokalemia Intractable vomiting MDD (major depressive disorder), recurrent episode, mild Opioid dependence Paroxysmal supraventricular tachycardia Personality disorder PTSD (post-traumatic stress disorder) Secondary adrenal insufficiency Vomiting Tests Performed Below is a partial list of the tests performed during your hospitalization. You may have had other tests and procedures not included in this list. Please discuss all test results with your provider. 25OH VITAMIN D Albumin Level ALT AST Basic Metabolic Panel Bilirubin Total + Direct BUN Calcium Level CBC CBC w/ Differential Comprehensive Metabolic Panel CORTISOL COVID-19, RSV, FLU A/B PCR CPK Total Only Creatinine CRP Electrolytes ESR Glucose Level HOLD BLUE TUBE HOLD GEL TUBE HOLD JEFFERSON TUBE HOLD GREEN TUBE HOLD LAVENDER TUBE Lactate Level LIPASE LIPID PANEL Liver Function Panel Lytes Magnesium Level Phosphorus Level Prealbumin Troponin T, High Sensitivity TSH WITH REFLEX TO FT4 UA [facility] UA W/ Reflex Microscopic & Culture Urinalysis [facility] Urinalysis w/hold for Urine Culture URINE MICROSCOPIC CT Abd/Pelvis W/ IV Contrast Only CT Abdomen and Pelvis W/O Contrast CT Lumbar Spine W/ Contrast CT Thoracic Spine W/ Contrast CXR W/ Frontal and Lat Upper GI W/ KUB US Abdomen Comp XR KUB or Abdomen Add On Lab Order?? Primary Care Provider Dash WILCOX ([place]) , Paola Anderson? Advance Directive Health Care Proxy on File Yes - Health Care Proxy Discharge Vitals Temperature: 98.3 DegF Height: 170 cm Pulse Rate: 68 bpm Weight: 93.2 kg Respiratory Rate: 20 br/min Body Mass Index:??33.22 kg/m2??Critical Systolic Blood Pressure: 126 mm Hg Body surface area: 2.13 Diastolic Blood Pressure: 83 mm Hg ?? Oxygen Saturation: 98 % ?? Studies Pending All studies ordered during this hospital stay have been completed unless listed below. Please discuss all pending results with your provider listed above in these instructions. ?? Add On Lab Order?? What to do next Instructions From Your Doctor ?? Orders?? home after IV ceftriaxone today., ??12/01/23 9:39:00 EDT?? Scheduled Follow-Up Appointments Wednesday 2:00 PM EDT ?? With: Skylar WILCOX, Manda Castro Where: [facility] [address] [place] [address]- Status: Pending 2023 7:45 AM EDT ?? Where: [facility] [address] [place] [address]- Status: Pending You Need to Schedule the Following Appointments Follow Up with??Dash WILCOX (NM) , Paola Anderson When:??Within 1 to 2 weeks Where: [address] [place] [phone] Discharge Medications MARY ALICE IBRAHIM :1980 Visit Date:10/19/2023 Medications: Please continue your medications until treatment is completed or stopped by your provider. Medications not listed below should be discontinued. Discuss any questions related to medications with your provider. What How Much When Instructions Next Dose Changed Ondansetron (ondansetron 4 mg oral tablet, disintegrating) 1 tab(s) Oral Every 6 hours as needed for as needed for nausea/vomiting as needed Unchanged Aspirin (Aspirin Enteric Coated 81 mg oral delayed release tablet) 1 tab(s) Oral Daily tomorrow morning Unchanged BuPROpion (Wellbutrin SR 100 mg/ 12 hours oral tablet, extended release) 1 tab(s) Oral Daily Duration: 30 Days tomorrow morning Unchanged Cefdinir (cefdinir 300 mg oral capsule) 1 capsule Oral Every 12 hours Duration: 5 Days Pickup at [facility] #[id number] tonight 9PM Unchanged Clonazepam (KlonoPIN 1 mg oral tablet) 1 tab(s) Oral Twice a day Duration: 30 Days tonight 9PM Unchanged Cromolyn (cromolyn 20 mg/ mL oral solution) 10 Milliliter Oral 4 times a day 30 minutes before meals and at bedtime ?? dinner and bedtime Unchanged Fluoxetine (FLUoxetine 20 mg oral capsule) 2 capsule Oral Daily tomorrow morning Unchanged Gabapentin (gabapentin 300 mg oral capsule) 1 capsule Oral Twice a day tomorrow morning Unchanged HydroCORTisone (Solu-CORTEF Act-O-Vial 100 mg injection) See instructions use daily SQ for adrenal insufficiency. 14 mg qam and 7 mg qpm please provide extra 2 mg vial for stress dosing. ?? resume previous schedule Unchanged Hydromorphone (Dilaudid 2 mg oral tablet) 2 Milligram Oral Every 12 hours as needed for Pain , Moderate Duration: 7 Days Pickup at [facility] #[id number] as needed Unchanged Lactulose (lactulose 10 gm/ 15 ml oral syrup) 30 Milliliter Oral 4 times a day Duration: 14 [id number], 5PM and 9PM Unchanged Metoprolol (Metoprolol Tartrate 100 mg oral tablet) 1 tab(s) Oral Twice a day tonight 9PM Unchanged Montelukast (montelukast 10 mg oral tablet) 1 tab(s) Oral Daily in PM tonight 9PM Unchanged Pantoprazole (Protonix 40 mg oral delayed release tablet) 40 Milligram Oral Twice a day tonight 9PM Unchanged Polyethylene Glycol 3350 (MiraLax oral powder for reconstitution) 17 gram Oral Daily dissolve in 4 to 8 oz of beverage ?? [facility]up at [facility][id number] tomorrow morning Unchanged Prazosin (prazosin 2 mg oral capsule) 1 capsule Oral Daily at Bedtime Duration: 30 Days if PO intake is low or BP low below 110/ 70 only take one cap ?? tonight 9PM Unchanged Simethicone (simethicone 80 mg oral tablet, chewable) 80 Milligram Chew 3 times a day as needed for Gas Duration: 10 Days Pickup at [facility] #[id number] as needed Unchanged Spironolactone (spironolactone 25 mg oral tablet) 1 tab(s) Oral Daily tomorrow morning Unchanged Zolpidem (Ambien 5 mg oral tablet) 5 Milligram Oral Daily at Bedtime as needed for Sleep [facility] at [facility][id number] tonight 9PM Pharmacy Information [facility] #[id number]: [address], [place] [phone] ?? What How Much When Comments Stop Taking Atorvastatin (atorvastatin 40 mg oral tablet) 1 tab(s) Oral Daily Stop Taking Lorazepam (Ativan 1 mg oral tablet) 1 tab(s) Oral 3 times a day as needed for for anxiety Stop Taking Potassium Chloride (potassium chloride 10 mEq oral tablet, extended release) 2 tab(s) Oral Daily Duration: 7 Days Prescription Given During Visit Cefdinir (cefdinir 300 mg oral capsule) - 1 capsule = 300 mg, By Mouth, Every 12 hours, # 10 capsule, 0 Refills, [facility] #[id number], [address] [place] [phone]?? Hydromorphone (Dilaudid 2 mg oral tablet) - 2 mg, By Mouth, Every 12 hours, # 12 tablet, 0 Refills,[facility] #[id number], [address] [place] [phone]?? Lactulose (lactulose 10 gm/15 ml oral syrup) - 30 mL = 20 Gm, By Mouth, 4 times a day, # 1,680 mL, 0 Refills, [facility] #[id number], [address] [place] [phone]?? Polyethylene Glycol 3350 (MiraLax oral powder for reconstitution) - 17 Gm, By Mouth, Daily, # 238 Gm, 0 Refills, dissolve in 4 to 8 oz of beverage, [facility] #[id number], [address] [place] [phone]?? Simethicone (simethicone 80 mg oral tablet, chewable) - 80 mg, Chew, 3 times a day, # 20 tablet, 0 Refills, [facility] #[id number], [address] [place] [phone]?? Zolpidem (Ambien 5 mg oral tablet) - 5 mg, By Mouth, Daily at bedtime, # 7 tablet, 0 Refills, [facility] #[id number], [address] [place] [phone]?? Laboratory Results Below is a partial list of the most recent Laboratory test results done prior to this discharge. You may have had other tests and procedures not included in this list. Please discuss all test resultswith your provider. Est Creatinine Clearance - 70.35 mL/min (11/30/2023) 25OH VITAMIN D (11/09/2023) ???25 OH-Vitamin D Level - 15.6 ng/mL Albumin Level (11/15/2023) ???Albumin - 3.6 Gm/dL ALT (10/23/2023) ???ALT (SGPT) - 14 units/L AST (10/23/2023) ???AST (SGOT) - 11 units/L Basic Metabolic Panel (11/30/2023) ???Sodium - 140 mmol/L???Potassium - 3.9 mmol/L???Chloride - 103 mmol/L???Bicarbonate Level - 27 mmol/L???Anion Gap - 10???Glucose Level - 81 mg/dL???BUN - 9 mg/dL???Creatinine-Blood - 1.0 mg/dL???Estimated GFR Creatinine - 72 ML/MIN/1.73 M2???Calcium - 8.7 mg/dL Bilirubin Total + Direct (10/23/2023) ???Bilirubin, Total - 0.2 mg/dL???Bilirubin, Direct - 0.1 mg/dL???Bilirubin, Indirect - 0.1 mg/dL BUN (11/21/2023) ???BUN - 10 mg/dL Calcium Level (10/24/2023) ???Calcium - 8.8 mg/dL CBC (11/21/2023) ???WBC - 6.2 k/mm3???RBC - 4.08 m/mm3???Hgb - 11.4 Gm/dL???Hct - 36.5 %???MCV - 89.5 femtoliters???MCH - 27.9 pg???MCHC - 31.2 g/dL???Platelet Count - 199 k/mm3???RDW-SD - 43.9 femtoliters???MPV - 10.5 femtoliters???Nucleated RBC (Automated) - 0.0 #/100 WBC'S???Abs. NRBC - 0.0 k/mm3 CBC w/ Differential (11/09/2023) ???WBC - 5.1 k/mm3???RBC - 4.16 m/mm3???Hgb - 11.8 Gm/dL???Hct - 36.3 %???MCV - 87.3 femtoliters???MCH - 28.4 pg???MCHC - 32.5 g/dL???Platelet Count - 161 k/mm3???RDW-SD - 42.6 femtoliters???MPV - 11.6 femtoliters???Nucleated RBC (Automated) - 0.0 #/100 WBC'S???Abs. NRBC - 0.0 k/mm3???Abs. Neut - 2.2 k/mm3???Abs. Lymph - 2.3 k/mm3???Abs. Upton - 0.4 k/mm3???Abs. Eo - 0.1 k/mm3???Abs. Baso - 0.0 k/mm3???Neut % - 44.0 %???Lymph % - 46.0 %???Upton % - 8.0 %???Eos % - 2.0 %???Baso % - 0.0 %???Platelet Estimate - ADEQUATE Comprehensive Metabolic Panel (11/09/2023) ???Sodium - 142 mmol/L???Potassium - 3.2 mmol/L???Chloride - 105 mmol/L???Bicarbonate Level - 25 mmol/L???Anion Gap - 12???Glucose Level - 84 mg/dL???BUN - 6 mg/dL???Creatinine-Blood - 0.8 mg/dL???Estimated GFR Creatinine - 94 ML/MIN/1.73 M2???Calcium - 8.8 mg/dL???Protein, Total - 6.0 Gm/dL???Albumin - 3.3 Gm/dL???AG Ratio - 1.2???Alkaline Phosphatase - 99 units/L???AST (SGOT) - 21 units/L???ALT(SGPT) - 32 units/L???Bilirubin, Total - 0.3 mg/dL CORTISOL (11/09/2023) ???Cortisol Level - 3.1 ??g/dL COVID-19, RSV, FLU A/B PCR (11/05/2023) ???Influenza A PCR - NEGATIVE???Influenza B PCR - NEGATIVE???RSV PCR - NEGATIVE???COVID-19 PCR Specimen Source - NASAL???COVID-19 PCR Result - NEGATIVE CPK Total Only (11/07/2023) ???CK, Total - 50 units/L Creatinine (11/21/2023) ???Creatinine-Blood - 0.8 mg/dL???Estimated GFR Creatinine - 94 ML/MIN/1.73 M2 CRP (10/19/2023) ? ?C-Reactive Protein - <0.3 mg/dL Electrolytes (11/21/2023) ???Sodium - 144 mmol/L???Potassium - 3.6 mmol/L???Chloride - 110 mmol/L???Bicarbonate Level - 24 mmol/L???Anion Gap - 10 ESR (10/19/2023) ???Sed Rate - 9 mm/hr Glucose Level (11/21/2023) ???Glucose Level - 150 mg/dL HOLD BLUE TUBE (11/05/2023) ???Hold Blue Top - SPECIMEN DISCARDED AFTER 4 HOURS. HOLD GEL TUBE (11/08/2023) ???Hold Gel Top - SPECIMEN DISCARDED AFTER 1 WEEK HOLD JEFFERSON TUBE (11/05/2023) ???Hold Jefferson Top - SPECIMEN DISCARDED AFTER 1 WEEK HOLD GREEN TUBE (11/05/2023) ???Hold Green Top - SPECIMEN DISCARDED AFTER 1 WEEK HOLD LAVENDER TUBE (11/11/2023) ???Hold Lavender Top - SPECIMEN DISCARDED AFTER 24 HOURS. Lactate Level (11/05/2023) ???Lactate - 2.3 mmol/L LIPASE (10/24/2023) ???Lipase - 11 units/L LIPID PANEL (11/09/2023) ???Cholesterol - 96 mg/dL???Triglycerides - 162 mg/dL???HDL Cholesterol - 25 mg/dL???LDL Cholesterol - 39 mg/dL???Non HDL Cholesterol - 71 mg/dL Liver Function Panel (10/18/2023) ???Protein, Total - 7.3 Gm/dL???Albumin - 4.2 Gm/dL???Alkaline Phosphatase - 136 units/L???AST (SGOT) - 16 units/L???ALT (SGPT) - 19 units/L???Bilirubin, Total - 0.3 mg/dL???Bilirubin, Direct - 0.1 mg/dL???Bilirubin, Indirect - 0.2 mg/dL Lytes (10/27/2023) ???Sodium - 143 mmol/L???Potassium - 3.5 mmol/L???Chloride - 110 mmol/L???Bicarbonate Level - 22 mmol/L???Anion Gap - 11 Magnesium Level (11/21/2023) ???Magnesium - 1.8 mg/dL Phosphorus Level (11/10/2023) ???Phosphorus - 2.7 mg/dL Prealbumin (11/15/2023) ???Prealbumin - 19.6 mg/dL Troponin T, High Sensitivity (11/19/2023) ? ?High Sensitivity Troponin (HSTnT) - <6 ng/L TSH WITH REFLEX TO FT4 (10/19/2023) ???TSH - 0.96 uIU/mL [facility] (11/21/2023) ???Appear/Color, Urine - YELLOW???Clarity - CLEAR???Specific Huron, Urine - 1.020???pH, Urine - 5.5???Albumin, Urine - NEGATIVE???Glucose, Urine - NEGATIVE???Ketones, Urine - NEGATIVE???Bilirubin, Urine - NEGATIVE???Hemoglobin, Urine - NEGATIVE???Nitrite, Urine - NEGATIVE???Leukocyte, Urine - 1+?? ?Urobilinogen - NORMAL W/ Reflex Microscopic & Culture (11/05/2023) ???Appear/Color, Urine - YELLOW???Clarity - CLEAR???Specific Huron, Urine - 1.020???pH, Urine - 7.0???Albumin, Urine - NEGATIVE???Glucose, Urine - NEGATIVE???Ketones, Urine - NEGATIVE???Bilirubin, Urine - NEGATIVE???Hemoglobin, Urine - NEGATIVE???Nitrite, Urine - NEGATIVE???Leukocyte, Urine - NEGA TIVE???Urobilinogen - NORMAL Urinalysis [facility] (11/02/2023) ???Appear/Color, Urine - YELLOW???Clarity - CLEAR???Specific Huron, Urine - 1.015???pH, Urine - 7.0???Albumin, Urine - NEGATIVE???Glucose, Urine - NEGATIVE???Ketones, Urine - NEGATIVE???Bilirubin, Urine - NEGATIVE???Hemoglobin, Urine - NEGATIVE???Nitrite, Urine - NEGATIVE???Leukocyte, Urine - NEGA TIVE???Urobilinogen - NORMAL Urinalysis w/hold for Urine Culture (11/15/2023) ???Appear/Color, Urine - YELLOW???Clarity - CLEAR???Specific Huron, Urine - 1.015???pH, Urine - 8.0???Albumin, Urine - NEGATIVE???Glucose, Urine - NEGATIVE???Ketones, Urine - NEGATIVE???Bilirubin, Urine - NEGATIVE???Hemoglobin, Urine - NEGATIVE???Nitrite, Urine - NEGATIVE???Leukocyte, Urine - NEGA TIVE???Urobilinogen - NORMAL???Hold Urine Culture - Testing available 48 hours from time of collection. URINE MICROSCOPIC (11/21/2023) ? ?WBC's, Urine - 9 /HPF? ?RBC's, Urine - <1 /HPF? ?Squamous Epith - 4 /HPF? ?Hyaline Cast - 3 LPF???Mucus - SLIGHT Allergies (NKA means No Known Allergies) Cefzil??(Hives) Compazine??(severe anxiety, Hives) Haldol Inderal??(n/v,tachcardia) Lexapro??(n/v) Nardil??(Palpitations - rapid, N&V - Nausea and vomiting, C/O - a headache) Reglan??(severe anxiety~panic) Xarelto??(rash) Zoloft??(tachycardia, n/v) droperidol-fentanyl propranolol??(Rash) Problems Active Problems??(21) Abdominal pain?? Adrenal insufficiency?? Asthma?? Chest pain?? Chronic back pain?? Eating disorder?? Essential hypertension?? Gastroesophageal reflux disease?? Hyperlipidemia with target LDL less than 100?? 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 Normal coronary arteries?? Obese class I?? Ocular migraine?? Opioid dependence?? Pacemaker, Biotronik, inserted 10/29/14?? Personality disorder?? PTSD (post-traumatic stress disorder)?? PTSD (post-traumatic stress disorder)?? S/p REFUGIO-BSO?? SVT (supraventricular tachycardia)?? Education Materials Below is the list of Educational Leaflet Providered with your Discharge Instructions. Viral Diarrhea (Adult)?? Vomiting (Adult)?? Valuables and Belongings I fully understand and agree that [facility] accepts no responsibility for all my personal property including clothing, toilet articles, radios, jewelry, dentures, hearing aids, rings, money, or any other property that is in my possession or is brought to me after admission. I understand certain valuables may be placed in a hospital safe for a short period of time. I understand that the hospital is not liable for loss or damage due to accident, fire, or other natural occurrence while said property is in the safe. I accept full responsibility for any personal property that I keep with me, and will not hold the hospital responsible in case of loss or disappearance. I acknowledge that i have been encouraged to send valuables and belongings home. ?? Review of Valuable and Belonging List: With patient Date for Pt to Sign Valuables/Belongings: 12/01/23 11:33:00 ?? Other Discharge Information ? Pulmonary Rehab Status?? Pulmonary Rehab Discharge Status?? Respiratory Rate: 20 br/min ? Common Emergency Awareness Tips IS IT A STROKE? Act FAST and Check for these signs: FACE Does the face look uneven? ARM Does one arm drift down? SPEECH Does their speech sound strange? TIME Call at any sign of stroke ?? Heart Attack Signs Chest discomfort: Most heart attacks involve discomfort in the center of the chest and lasts more than a few minutes, or goes away and comes back. It can feel like uncomfortable pressure, squeezing, fullness or pain. Discomfort in upper body: Symptoms can include pain or discomfort in one or both arms, back, neck, jaw or stomach. Shortness of breath: With or without discomfort. Other signs: Breaking out in a cold sweat, nausea, or lightheaded. Remember, MINUTES DO MATTER. If you experience any of these heart attack warning signs, call to get immediate medical attention! ?? Smoking can increase your chances of developing chronic health problems and can cause harmful effects to other family members in your house. If you smoke, you are strongly encouraged to quit. Please call [facility] [employer] [facility] at [phone] or [phone] ([phone]) or log in to [email or web address] for referrals to smoking cessation programs. ?? 988 Suicide & Crisis Lifeline is available 12/04 if you or someone you know needs to find a reason to keep living. By calling 988 you'll be connected to a skilled, trained counselor at a crisis center in your area. INPATIENT DISCHARGE INSTRUCTIONS SIGNATURE PAGE MARY ALICE IBRAHIM Location:[facility] Registration Date and Time:10/19/2023 01:37 EST Primary Care Physician: Dash WILCOX ([place]) , Paola Anderson, Attending Physician: Deana Lala MD, I JORGE IBRAHIMNIFER, have received the above patient education materials/instructions and have verbalized understanding. If ambulance or transport services are being used I further acknowledge being given a choice of service. ?? If you need to contact me, please call me at this number: . Patient/Special Class Welder Name: Patient/Special Class Welder Signature: Relationship to Patient: Witness Name/Signature: Date: * Cydney Velez RN: PERFORM Event Display: Patient Education Leaflets Authored Date: [id number] Cefdinir Oral Capsule ?? [id number] Cefdinir Oral Capsule Uses For treating bacterial infection. ?? Instructions This medicine may be taken with or without food. Keep the medicine at room temperature. Avoid heat and direct light. Do not take this medicine with antacids. Do not take any antacid or vitamins with magnesium, calcium, aluminum, or iron for 2 hours before and 2 hours after taking this medicine. If you forget to take a dose on time, take it as soon as you remember. If it is almost time for thenext dose, do not take the missed dose. Return to your normal schedule. Do not take 2 doses at one time. Tell your doctor and pharmacist about all your medicines. Include prescription and ihls-dwe-qpphmqjzsmdgtwic, vitamins, and herbal medicines. Keep using this medicine for the full number of days that it is prescribed. Do not stop the medicine even if you start to feel better. If you have diabetes and use urine glucose tests, this medicine may cause incorrect results. Pleasecheck with your doctor before making any changes to your diabetes treatment plan. Keep all appointments for medical exams and tests while on this medicine. ?? Cautions Tell your doctor and pharmacist if you ever had an allergic reaction to a medicine. Do not use the medication any more than instructed. Contact your doctor if you notice a change in the amount or darkening of your urine. Speak with your health care provider before receiving any vaccinations. Please tell your doctor if you have moderate to severe diarrhea while on this medicine. Do not treat the diarrhea with mino-gdu-dgfyovd diarrhea medicine. Tell the doctor or pharmacist if you are , planning to be , or . Do not start or stop any other medicines without first speaking to your doctor or pharmacist. Do not share this medicine with anyone who has not been prescribed this medicine. ?? Side Effects The following is a list of some common side effects from this medicine. Please speak with your doctor about what you should do if you experience these or other side effects. ??? diarrhea ??? changes in the color of the urine or stool ??? headaches ??? nausea and vomiting ??? stomach upset or abdominal pain ??? yeast infection of mouth ??? vaginal itching or yeast infection Call your doctor or get medical help right away if you notice any of these more serious side effects: ??? confusion ??? severe, watery or bloody diarrhea ??? signs of liver damage (such as yellowing ofeye or skin, dark urine, or unusual tiredness) ??? red, burning, or itchy skin ??? increased urinary frequency ??? urinating less often A few people may have an allergic reaction to this medicine. Symptoms can include difficulty breathing, skin rash, itching, swelling, or severe dizziness. If you notice any of these symptoms, seek medical help quickly. ?? Extra Please speak with your doctor, nurse, or pharmacist if you have any questions about this medicine. ?? [email or web address]/[email or web address] IMPORTANT NOTE: This document tells you briefly how to take your medicine, but it does not tell youall there is to know about it. Your doctor or pharmacist may give you other documents about your medicine. Please talk to them if you have any questions. Always follow their advice. There is a more complete description of this medicine available in Montenegr[place]. Scan this code on your smartphone or tablet or use the web address below. You can also ask your pharmacist for a printout. If you have any questions, please ask your pharmacist. The display and use of this drug information is subject to Terms of Use. Copyright(c) 2022 [employer] [place]. ?? [employer]. All rights reserved. This information is not intended as a substitute for professional medical care. Always follow your healthcare professional's instructions. ?? * Cydney Velez RN: PERFORM Event Display: Patient Education Leaflets Authored Date: [id number] Cefdinir Oral Capsule ?? [id number] Cefdinir Oral Capsule Uses For treating bacterial infection. ?? Instructions This medicine may be taken with or without food. Keep the medicine at room temperature. Avoid heat and direct light. Do not take this medicine with antacids. Do not take any antacid or vitamins with magnesium, calcium, aluminum, or iron for 2 hours before and 2 hours after taking this medicine. If you forget to take a dose on time, take it as soon as you remember. If it is almost time for thenext dose, do not take the missed dose. Return to your normal schedule. Do not take 2 doses at one time. Tell your doctor and pharmacist about all your medicines. Include prescription and pomq-vfg-endzvjrkgjrcjmqy, vitamins, and herbal medicines. Keep using this medicine for the full number of days that it is prescribed. Do not stop the medicine even if you start to feel better. If you have diabetes and use urine glucose tests, this medicine may cause incorrect results. Pleasecheck with your doctor before making any changes to your diabetes treatment plan. Keep all appointments for medical exams and tests while on this medicine. ?? Cautions Tell your doctor and pharmacist if you ever had an allergic reaction to a medicine. Do not use the medication any more than instructed. Contact your doctor if you notice a change in the amount or darkening of your urine. Speak with your health care provider before receiving any vaccinations. Please tell your doctor if you have moderate to severe diarrhea while on this medicine. Do not treat the diarrhea with actm-xfz-qndxyjo diarrhea medicine. Tell the doctor or pharmacist if you are , planning to be , or . Do not start or stop any other medicines without first speaking to your doctor or pharmacist. Do not share this medicine with anyone who has not been prescribed this medicine. ?? Side Effects The following is a list of some common side effects from this medicine. Please speak with your doctor about what you should do if you experience these or other side effects. ??? diarrhea ??? changes in the color of the urine or stool ??? headaches ??? nausea and vomiting ??? stomach upset or abdominal pain ??? yeast infection of mouth ??? vaginal itching or yeast infection Call your doctor or get medical help right away if you notice any of these more serious side effects: ??? confusion ??? severe, watery or bloody diarrhea ??? signs of liver damage (such as yellowing ofeye or skin, dark urine, or unusual tiredness) ??? red, burning, or itchy skin ??? increased urinary frequency ??? urinating less often A few people may have an allergic reaction to this medicine. Symptoms can include difficulty breathing, skin rash, itching, swelling, or severe dizziness. If you notice any of these symptoms, seek medical help quickly. ?? Extra Please speak with your doctor, nurse, or pharmacist if you have any questions about this medicine. ?? [email or web address] World [email or web address]/[email or web address] IMPORTANT NOTE: This document tells you briefly how to take your medicine, but it does not tell youall there is to know about it. Your doctor or pharmacist may give you other documents about your medicine. Please talk to them if you have any questions. Always follow their advice. There is a more complete description of this medicine available in Montenegr[place]. Scan this code on your smartphone or tablet or use the web address below. You can also ask your pharmacist for a printout. If you have any questions, please ask your pharmacist. The display and use of this drug information is subject to Terms of Use. Copyright(c) 2022 [employer] [place]. ?? [employer]. All rights reserved. This information is not intended as a substitute for professional medical care. Always follow your healthcare professional's instructions. ?? * Event Display: Provider Clarification Note Please click on pdf link to open report * Kamille Diallo RN: PERFORM Event Display: Discharge/Transfer Note Hospital Authored Date: [id number] Discharge Planning Nursing Entered On: 10/22/2023 12:12 EST Performed On: 10/22/2023 12:12 EST by Kamille Diallo RN Discharge Planning Nursing Anticipated discharge : Unable to determine Kamille Diallo RN - 10/22/2023 12:12 EST * Jessica Miller MD: PERFORM Event Display: Patient Education Leaflets Authored Date: [id number] Viral Diarrhea (Adult) ?? [id number] Viral Diarrhea (Adult) Diarrhea caused by??a virus is often called viral gastroenteritis. Many people call it the stomach flu, but it has nothing to do with the flu. The virus that causes diarrhea affects the stomach and intestinal tract. It often lasts from 2 to 7 days. Diarrhea is the passing of loose, watery stools 3 or more times a day. Symptoms Along with diarrhea, you may have these symptoms: ??? Belly (abdominal) pain and cramping ??? Nausea and vomiting ??? Loss of bowel control ??? Feverand chills ??? Bloody stools The danger from repeated diarrhea is dehydration. This is when your body loses too much water and other fluids. Antibiotics don't work well in treating this illness. But there are things you can do at home that will help. ?? Home care Follow these home care tips: ??? If symptoms are severe, rest at home for the next 24 hours or until you are feeling better. ???Wash your hands with soap and water or an alcohol-based woodworking shop hand. This helps prevent the spread ofinfection. Wash your hands after touching anyone who is sick. ??? Teach all people in your home when and how to wash their hands. Wet your hands with clean, running water. Lather the backs of your hands, between your fingers, and under your nails. Scrub your hands for at least 20 seconds. If you need a timer, try humming the ???Happy Birthday?? song from beginning to end twice. Rinse your hands well. Dry them with a clean paper towel. ??? Wash your hands after using the toilet and before meals. Clean the toilet after each use. Food preparation ??? People with diarrhea should not make food for others. When making food, wash your hands after touching anyone who is??sick. ??? Wash your hands after using items that have been in contact with raw food. This includes cutting boards, countertops, and knives. ??? Keep uncooked meats away from cooked and [id number] foods. Medicines ??? You may use acetaminophen or nonsteroidal anti-inflammatory drugs (NSAIDS), such as ibuprofen or naproxen, to control fever unless another medicine was prescribed.??In addition: o Talk with your healthcare provider before using these medicines if you have chronic liver or kidney disease, or ever had a stomach ulcer or GI (gastrointestinal) bleeding. o Don???t give aspirin (or medicine that contains aspirin) to children or teens unless directed by the provider. Taking aspirin can put them atrisk for Justo syndrome. This is a rare but very serious disorder. It most often affects the brain and the liver. o Don't use NSAID medicines if you are already taking one for another condition (such as arthritis) or if you are taking aspirin (such as for heart disease or after a stroke). ??? Only take antidiarrhea medicines if advised by your healthcare provider. Sometimes they can make your condition worse. If you have bloody diarrhea or fever, check with your provider before taking this type of medicine. Diet ??? Water and clear liquids are important, so you don't get dehydrated. Drink small amounts at a time. Don't guzzle it down. If you are very dehydrated, sports drinks aren't a good choice. They have too much sugar and not enough electrolytes. In this case, commercially available products called oral rehydration solutions are best. ??? Caffeine, tobacco, and alcohol can make the diarrhea, cramping, and pain worse. Try to stop using these until you are fully recovered. ??? Don't force yourself toeat, especially if you have cramping, vomiting, or diarrhea. Don't eat large amounts at a time, even if you are hungry. It may make you feel worse. ??? If you eat, don't have fatty, greasy, spicy, orfried foods. ??? Don't have any dairy products, as they can make diarrhea worse. During the first 24 hours??(the first full day)??follow the diet below: ??? Drinks. Water, clear liquids, soft drinks without caffeine; gabo lolis, mineral water (plain orflavored), decaffeinated tea and coffee ??? Soups. Clear broth, consomm??, and bouillon ??? Desserts. Plain gelatin, ice pops, and fruit juice bars During the next 24 hours (the second day) you may add these to the above if you are feeling better: ??? Hot cereal, plain toast, bread, rolls, crackers ??? Plain noodles, rice, mashed potatoes, chicken noodle or rice soup ??? Unsweetened canned fruit, such as applesauce and bananas (not pineapple and citrus) ??? Limit fat intake to less than 15 grams per day. Don't eat margarine, butter, oils, mayonnaise, sauces, gravies, fried foods, peanut butter, meat, poultry, and fish. ??? Limit fiber. Don't eat raw or cooked vegetables, fresh fruits (except bananas), and bran cereals. ??? Limit caffeineand chocolate. No spices or seasonings except salt. During the next 24 hours: ??? Slowly go back to a normal diet, as you feel better and your symptomsease. ??? If at any time the diarrhea or cramping gets worse, go back to the simpler diet (above) or to clear liquids. ?? Follow-up care Follow up with your healthcare provider, or??as advised. Call if you aren't getting better in 24 hours or if??the diarrhea lasts more than 1 week. This is even more important if you are in a high-risk group, such as: ??? Being an older adult ??? Having a weak immune system (such as from cancer treatment) ??? Havinginflammatory bowel disease (Crohn's disease or colitis) If a stool (diarrhea) sample was taken, you may call in 2 days (or as directed) for the results. ?? When to get medical advice Call your healthcare provider right away if any of the following occur: ??? More belly pain or constant lower right belly pain ??? Lasting vomiting (can't keep liquids down) ??? Frequent diarrhea (more than 5 times a day) ??? Blood in vomit or stool (black or red color) ??? Eating or drinking less ??? Dark urine, reduced urine output ??? Weakness, dizziness ??? Drowsiness ??? Fever of 100.4??F (38??C) or higher, or as directed by your provider ??? New rash ??? Symptoms get worse or you have newsymptoms ?? Call 911 Call 911 if any of the following occur: ??? Trouble breathing ??? Feeling confused ??? Severe drowsiness or trouble waking up ??? Fainting or loss of consciousness ??? Fast heart rate ??? Seizure ???Stiff neck ?? Last Reviewed Date: 2022 ?? 5430-2755 [employer]. All rights reserved. This information is not intended as a substitute for professional medical care. Always follow your healthcare professional's instructions. ?? Patient Care team information Care Team Personnel Name: Dash WILCOX (NM) , Paola Anderson Position: S Outreach Member Role: PCP Address: Address: [address] [place] [phone] Name: Daina Ibrahim RN [facility] RN W/OE and Tasks Member Role: Primary Care Nurse Name: Brie RNMadeline Position: [facility] RN W/OE and Tasks Member Role: Primary Care Nurse Name: Teresa Carpio Position[facility] RN Member Role: Primary Care Nurse Name: Inge Elizabeth RN Position: [facility] SN RN Member Role: Primary Care Nurse Name: Kelley Prasad RN Position: [facility] ED RN W/OE and Tasks Member Role: Primary Care Nurse Name: Cindy Medeiros RN Position: [facility] RN Member Role: Primary Care Nurse Name: Linnette De La O RN Position: [facility] RESEARCH CONTRACTS SUPERVISOR Member Role: Primary Care Nurse Name: Anna OUTREACH COUNSELORAlina Position: [facility] Associate Professional Member Role: Primary Care Nurse Address: Address: [address] [place] [address]- Name: Gab Velarde RN [facility] RN Member Role: Primary Care Nurse Name: Mary Anne Kilpatrick RN Position: [facility] MR W/ Merge Member Role: Primary Care Nurse Name: Kira Medellin RN Position: [facility] RN Member Role: Primary Care Nurse Name: Nicole Hernández RN Position[facility] RN Member Role: Primary Care Nurse Name: Lindsay Srinivasan CNM Position[facility] Jute Bag Cutting Machine Operator Member Role: Primary Care Nurse Address: Address: [address] [place] [phone]- Name: Bea Brown RN Position[facility] RN Member Role: Primary Care Nurse Name: Kiana Sabillon RN Position[facility] RN Member Role: Primary Care Nurse Name: Bobby Wilson RN Position: [facility] Outreach Member Role: Primary Care Nurse Name: Larissa Olson [place] Position: [facility] RN Member Role: Primary Care Nurse Name: Karen Roa RN Position: [facility] ED RN W/OE and Tasks Member Role: Primary Care Nurse Name: Mary Alice Stevens RN Position[facility] RN Member Role: Primary Care Nurse Name: Beverly Grey Position: [facility] RN Member Role: Primary Care Nurse Name: Lani Gray RN Position[facility] RN Member Role: Primary Care Nurse Name: Grazyna RNAlexy Position: [facility] RN W/OE and Tasks Member Role: Primary Care Nurse Name: Raúl Rudolph DO Position: [facility] SUPERVISOR VENDOR QUALITY MD Member Role: Lifetime SUPERVISOR VENDOR QUALITY Physician Address: Address: [address] [place] [address]- Name: Evelyn Haynes RN Position[facility] RN Member Role: Primary Care Nurse Name: Crissy Metzger RN Position[facility] RN Member Role: Primary Care Nurse Name: Elisa Gilbert RN Position[facility] RN Member Role: Primary Care Nurse Name: Corina Solorio RN Position: [facility] AMB Nurse Member Role: Primary Care Nurse Name: Shawnee Lane RN Position: [facility] ED RN W/OE and Tasks Member Role: Primary Care Nurse Name: Ana Estrada RN Position[facility] RN Member Role: Primary Care Nurse Name: Keyana Ndiaye RN Position: [facility] Rotor Coil Taper Member Role: Primary Care Nurse Name: Grace Verma RN [facility] RN Member Role: Primary Care Nurse Name: Anabella Nicholson RN Position: [facility] Nurse Member Role: Primary Care Nurse Name: Brenda Tomas RN Position: [facility] Outreach Member Role: Primary Care Nurse Name: Ramona Ybarra RN Position[facility] RN Member Role: Primary Care Nurse Address: Address: [address] [place] [address]- Name: Nancy Gallagher RN Position: [facility] Rotor Coil Taper Member Role: Primary Care Nurse Name: Evelyn Allen RN Position[facility] OB RN Member Role: Primary Care Nurse Name: Jackelin Watt RN Position[facility] RN Member Role: Primary Care Nurse Name: Cata Elizabeth RN Position: [facility] SN RN Member Role: Primary Care Nurse Name: Cata Beard RN Position[facility] RN Member Role: Primary Care Nurse Name: Opal Calderon RN Position[facility] RN Member Role: Primary Care Nurse Name: Stephanie Warner RNeekaleatha Position: [facility] SN RN Member Role: Primary Care Nurse Care Team Related Persons Name: BARTOLOME IBRAHIM Address: [address] [place], [place] Name: GIANLUCA IBRAHIM Address: [address] [place], [place] Name: ABBIE IBRAHIM Address: [address] [place], [place] Name: SIM CERDA Name: DIANE CERDA Address: [address] [place] [address] Name: SOLO CORRIGAN Address: [address] [place] [address] Name: SOLO FLORES Address: home [address] [place] [address] Name: CATA MAYFIELD Address: home [address] [place] [address]
--- OUTSIDE RECORDS SUMMARY | 2024-01-27 11:33 | XMS_ITS | Continuity of Care Document ---
Author Organization [facility] Address [address] [place] [address]- Care Team Providers Care Refinery Operator Reforming Unit Name Role Phone Agustín Faria MD Primary Care Physician Encounter [facility] Date(s): 09/27/19 - 09/28/[address] [address] Encounter Diagnosis Acute vomiting(Final) - 09/28/19 Discharge Disposition: A-D/C Home Attending Physician: Francisco Biswas DO Admitting Physician: Francisco Biswas DO Referring Physician: Not on Staff, Referring [...] 02/21/19 8:58:39 EDT, Route to Pharmacy Electronically, [id number], [facility] Start Date: 02/21/19 Stop Date: 04/22/19 [...] 08/24/19 9:15:39 EST, Route to Pharmacy Electronically, [id number], [facility] #[id number], 170, cm, 08/24/19 8:38:44 EST, H... Start [...] 0 Refills, Maintenance, 09/28/19 0:43:00 EST, Tablet, [facility] #[id number], 171, cm, 09/27/19 22:45:00 EST, Height, 92.2, [...] 0 Refills, Soft Stop, 09/28/19 0:51:00 EST, [id number], 171, cm, 09/27/19 22:45:00 EST, Height, 92.2, [...] 02/21/19 8:59:46 EDT, Route to Pharmacy Electronically, [id number], [facility] Start Date: 02/21/19 Stop Date: 09/19/19 [...] Exam Date Time Procedure Performing Provider Status 09/28/19 12:19 AM Chest 2 Views Frontal and Lat Wilcox , T huthao T; Auth (Verified) Notes: (Chest 2 Views Frontal and Lat) Reason For Exam: Shortness of Breath, Fever;Other: RESULT: Chest 2 Views Frontal and Lat Chest 2 Views Frontal and Lat INDICATION: Shortness of breath, fever. Clinical concern for pneumonia, bilateral flank pain with nausea vomiting and dizziness. COMPARISON: Multiple priors most recent 09/05/2019. FINDINGS: LINES AND TUBES: Dual-lead left subclavian pacer/AICD wires are intact unchanged. LUNGS AND PLEURA: Clear lungs. Normal pulmonary vascularity. No pleural effusion. No pneumothorax. HEART, MEDIASTINUM AND DAGOBERTO: Heart is normal in size. Normal mediastinal and hilar contour. BONES AND SOFT TISSUES: No acute abnormality. Right upper quadrant surgical clips likely cholecystectomy changes. IMPRESSION: No acute abnormality. WSN: [id number] Dictated By: Marcello Porter MD Dictated Date/Time: 09/28/19 8:28 am Reviewed By: Marcello Porter MD Signed By: Marcello Porter MD Signed Date/Time: 09/28/19 8:28 am Transcribed By: DIANE Transcribed Date/Time: 09/28/19 8:26 am Vital Signs Most recent to oldest [Reference Range]: 1 2 3 Height 171 cm (09/28/19 1:05 AM) 171 cm (09/27/19 10:45 PM) 171 cm (09/27/19 8:42 PM) Weight 92.2 kg (09/28/19 1:05 AM) 92.2 kg (09/27/19 10:45 PM) 92.2 kg (09/27/19 8:42 PM) Oxygen Saturation [94-100 %] 97 % (09/28/19 1:05 AM) 99 % (09/27/19 11:50 PM) 100 % (09/27/19 8:42 PM) Pulse Rate [55-90 bpm] 63 bpm (09/28/19 1:05 AM) 64 bpm (09/27/19 11:50 PM) 68 bpm (09/27/19 10:45 PM) Body Mass Index [18.5-24.99] 31.53 *>HHI* (09/28/19 1:05 AM) 31.53 *>HHI* (09/27/19 10:45 PM) 31.53 *>HHI* (09/27/19 8:42 PM) Blood Pressure [90-138/55-84 mm Hg] 123/79mm Hg (09/28/19 1:05 AM) 112/78mm Hg (09/27/19 11:50 PM) 127/84mm Hg (09/27/19 10:45 PM) Respiratory Rate [16-30 br/min] 16 br/min (09/28/19 1:05 AM) 18 br/min (09/27/19 11:50 PM) 16 br/min (09/27/19 11:38 PM) Temperature [96.8-100.4 DegF] 98.1 DegF (09/27/19 11:50 PM) 97.9 DegF (09/27/19 6:30 PM) Mode of Delivery (Oxygen) Room air (09/28/19 1:05 AM) Room air (09/27/19 11:50 PM) Room air (09/27/19 8:42 PM) Blood pressure sites Arm, left (09/28/19 1:05 AM) Arm, left (09/27/19 10:45 PM) Arm, left (09/27/19 8:42 PM) Temperature Route Temporal (09/27/19 6:30 PM) Dry Weight 92.2 kg (09/28/19 1:05 AM) 92.2 kg (09/27/19 10:45 PM) 92.2 kg (09/27/19 8:42 PM) Social History Social History Type Response Smoking Status 10 or more cigarette s (1/2 pack or more)/day in last 30 days entered on: 08/06/19 Sex
--- OUTSIDE RECORDS SUMMARY | 2024-01-27 11:33 | XMS_ITS | Continuity of Care Document ---
Author Organization [facility] Address [address] [place] [address]- Care Team Providers Care Accounts Payable Analyst Name Role Phone Maranda WILCOX, Silvio Martinez Primary Care Physician [facility]counter [facility] Date(s): 09/09/20 - 10/09/20 [facility] [address] [place] [address]- Allergies, Adverse Reactions, Alerts Substance Reaction Severity [...] capsule, 1 Refills, Maintenance, 10/21/19 11:17:00 EST, [facility] #[id number], 1 capsule By Mouth 3 times a [...] 04/09/21 14:58:00 EDT, 04/09/20 14:57:00 EDT, Tablet, [facility] #[id number], 169, cm, 04/05/20 12:55:00 EDT, Height, 85, [...] 0 Refills, Maintenance, 10/08/20 10:19:00 EST, Tablet, [facility] #[id number], 170, cm, 10/04/20 19:07:00 EST, Height, 91, kg, 0... Start Date: 10/08/20 Stop Date: 11/07/20 Status: Ordered KlonoPIN 1 mg oral tablet 2.5 tablet = 2.5 mg, By Mouth, Daily at bedtime, 0.5 mg TID 1 mg at hs, # 75 tablet, 3 Refills, Maintenance, 05/28/20 11:56:00 EDT, [facility] #[id number], 170, cm, 05/27/20 0:11:00 EDT, Height,90.4, kg, [...] 0 Refills, Maintenance, 06/18/20 16:48:00 EDT, Tablet, [facility] #[id number], 170, cm, 06/18/20 15:14:00 EDT, Height, 90.4, [...] Refills, Soft Stop, 10/02/20 11:57:00 EST, Powder, [facility] #[id number], Partial fill upon patient... Start Date: 10/02/20 [...]
--- OUTSIDE RECORDS SUMMARY | 2024-01-27 11:33 | XMS_ITS | Continuity of Care Document ---
Author Organization [facility] [place] Address [address] [place] [address]- Care Team Providers Care Catalogue Librarian Name Role Phone Maranda WILCOX, Silvio Martinez Primary Care Physician Encounter [facility] Date(s): 12/12/20 - 03/16/21 [facility] [place] [address] [place] [address]- Attending Physician: Hubert Roper MD Allergies, Adverse Reactions, Alerts Substance Reaction Severity Status propranolol Rash Active Nardil Palpitations - rapid N&V - Nausea and vomiting C/O - a headache Active Inderal n/v,tachcardia Active Cefzil Hives Active Haldol Active Compazine severe anxiety Hives Active Reglan severe anxiety~panic Active Lexapro n/v Active Xarelto rash Active Zoloft tachycardia n/v Active Immunizations Given and Recorded Vaccine [...] tablet, 0 Refills, Maintenance, 12/26/20 12:55:00 EDT, [email or web address] #[id number], Partial fill upon patient request if the prescription is for a schedule II opioid drug., 170, cm,... Start Date: 12/26/20 Status: Ordered Potassium Chloride = 40 mEq, By Mouth, 2 times a day, 0 Refills, Maintenance, 01/20/21 5:39:00 EDT, Partial fill upon patient request if the prescription is for a schedule II opioid drug. Start Date: 01/20/21 Status: Ordered Potassium Chloride (Tnr-[id number] M20) 20 mEq oral tablet, extended release 1 tablet = 20 mEq, By Mouth, 2 times a day, # 10 tablet, 0 Refills, Maintenance, 01/20/21 7:48:00 EDT, [email or web address] #[id number], Partial fill upon patient request if the [...] Refills, Soft Stop, 10/02/20 11:57:00 EST, Powder, [facility] #[id number], Partial fill upon patient... Start Date: 10/02/20 [...] 0 Refills, Maintenance, 01/20/21 7:49:00 EDT, Tablet, [facility] #[id number], Partial fill upon patient request if the [...]
--- OUTSIDE RECORDS SUMMARY | 2024-01-27 11:33 | XMS_ITS | Continuity of Care Document ---
Author Organization [facility] Address [address] [place] [address]- Care Team Providers Care Railroad Watchman Name Role Phone Dash WILCOX (ME), Paola Anderson Primary Care Physician Encounter [facility] Date(s): 05/19/23 - 09/16/23 [facility] [address] [place] [address]- Attending Physician: Amos Appiah MD Allergies, Adverse [...] 0 Refills, Maintenance, 07/15/23 11:42:00 EDT, Tablet, [facility] #[id number], Partial fill upon patient request if the [...] 4 Refills, Maintenance, 08/10/23 14:21:00 EST, Tablet, [facility] #[id number], Partial fill upon patient request if the prescription is fora schedule II opioid drug., 170, cm, 08/05/23 3:21:... Start Date: 08/10/23 Stop Date: 01/07/24 Status: Ordered Metoprolol Tartrate 100 mg oral tablet 1 tablet, By Mouth, 2 times a day, # 60 tablet, 0 Refills, Maintenance, 09/10/23 16:43:00 EST, [facility] #[id number], 170, cm, 08/27/23 7:32:00 EST, Height, 99, [...] 0 Refills, Maintenance, 05/13/23 10:33:00 EDT, Tablet, [facility] #29705, Partial fill upon patient request if the prescription is for a schedule II opioid drug., 1... Start Date: 05/13/23 Stop Date: 05/16/23 Status: Ordered potassium chloride 10 mEq oral tablet, extended release 2 tablet = 20 mEq, By Mouth, Daily, # 14 tablet, 0 Refills, Soft Stop, 08/27/23 8:49:00 EST, ER Tablet, [facility] #00054, Partial fill upon patient request if the [...] capsule, 4 Refills, Maintenance, 08/10/23 14:14:00 EST, [facility] #11603, Partial fill upon patient request if the [...] Refills, Soft Stop, 05/27/23 14:16:00 EDT, Powder, [facility] #[id number], Partial fill upon patient... Start Date: 05/27/23 Status: Ordered spironolactone 25 mg oral tablet 1, tablet, By Mouth, Daily, # 30 tablet, Refills 0, Maintenance, 09/10/23 16:43:00 EST, Route to Pharmacy Electronically, [facility] #[id number], 170, cm, 08/27/23 7:32:00 EST, Height, 99, kg, 08/18/23 9:13:00 EST, Dry Weight Start Date: 09/10/23 Status: Ordered Wellbutrin SR 100 mg/12 hours oral tablet, extended release 1 tablet = 100 mg, By Mouth, Daily, # 30 tablet, 4 Refills, Maintenance, 08/10/23 14:26:00 EST, [facility] #[id number], Partial fill upon patient request if the [...] Dash WILCOX (ME) , Paola Anderson Position: [facility] Outreach Member Role: PCP Address: Address: [address] [place] [phone] [place] Name: Daina Ibrahim RN Position: [facility] ED RN W/OE and Tasks Member Role: Primary Care Nurse Name: Madeline Baird RN Position: [facility] ED RN W/OE and Tasks Member Role: Primary Care Nurse Name: Teresa Carpio Position: [facility] RN Member Role: Primary Care Nurse Name: Inge Elizabeth RN Position: [facility] RN Member Role: Primary Care Nurse Name: Kelley Prasad RN Position: [facility] RN Member Role: Primary Care Nurse Name: Cindy Medeiros RN Position: [facility] RN Member Role: Primary Care Nurse Name: Linnette De La O RN Position: [facility] PIPE INSPECTOR Member Role: Primary Care Nurse Name: Alina Castillo NP Position: [facility] Associate Professional Member Role: Primary Care Nurse Address: Address: [address] [place] [address]- [place] Name: Mary Anne Kilpatrick RN Position: [facility] MR W/ Merge Member Role: Primary Care Nurse Name: Nicole Hernández RN Position: [facility] RN Member Role: Primary Care Nurse Name: Lindsay Srinivasan CNM Position: [facility] Camp Program Director Member Role: Primary Care Nurse Address: Address: [address] [place] [id number]- [place] Name: Kiana Sabillon RN Position: [facility] RN Member Role: Primary Care Nurse Name: Larissa Olson [place] Position: [facility] RN Member Role: Primary Care Nurse Name: Karen Roa RN Position: [facility] ED RN W/OE and Tasks Member Role: Primary Care Nurse Name: Mary Alice Stevens RN Position: [facility] RN Member Role: Primary Care Nurse Name: Beverly Grey Position: [facility] RN Member Role: Primary Care Nurse Name: Alexy Geronimo RN Position: [facility] ED RN W/OE and Tasks Member Role: Primary Care Nurse Name: Raúl Rudolph DO Position: [facility] INJECTION WAX MOLDER MD Member Role: Lifetime INJECTION WAX MOLDER Physician Address: Address: [address] [place] [phone]- Name: Evelyn Haynes RN Position: [facility] RN Member Role: Primary Care Nurse Name: Crissy Metzger RN Position: [facility] RN Member Role: Primary Care Nurse Name: Elisa Gilbert RN Position: [facility] RN Member Role: Primary Care Nurse Name: Corina Solorio RN Position: [facility] AMB Nurse Member Role: Primary Care Nurse Name: Shawnee Lane RN Position: [facility] ED RN W/OE and Tasks Member Role: Primary Care Nurse Name: Aan Estrada RN Position: [facility] RN Member Role: Primary Care Nurse Name: Erna Douglass RN Position: [facility] RN Member Role: Primary Care Nurse Name: Keyana Ndiaye RN Position: [facility] Stock Shaper Member Role: Primary Care Nurse Name: Anabella Nicholson RN Position: [facility] Nurse Member Role: Primary Care Nurse Name: Brenda Tomas RN Position: [facility] Outreach Member Role: Primary Care Nurse Name: Ramona Ybarra RN Position: [facility] RN Member Role: Primary Care Nurse Address: Address: [address] [place] [phone]- Name: Nancy Gallagher RN Position: [facility] Stock Shaper Member Role: Primary Care Nurse Name: Evelyn [...] Persons Name: PATRICE BARTOLOME Address: [address] [place] [address] Name: GIANLUCA IBRAHIM Address: [address] [place], [place] Name: ABBIE IBRAHIM Address: [address] [place] [address] Name: SIM CERDA Name: DIANE CERDA Address: [address] [place] [address] Name: SOLO CORRIGAN Address: [address] [place], [place] Name: SOLO FLORES Address: [address] [place], [place] Name: RAYMUNDO MAYFIELD Address: [address] [place] [address]
--- OUTSIDE RECORDS SUMMARY | 2024-01-27 11:33 | XMS_ITS | Continuity of Care Document ---
Author Organization [facility] Address [address] [place] [address]- Care Team Providers Care Mastercam Programmer Name Role Phone Mariella OCAMPO, Amelia Primary Care Physician [phone] [place] [facility] [place]): [place]/12/20 [facility] [address] [place] [address]- [facility] Attending Physician: Manda Tomas MD Admitting Physician: Manda Tomas MD Allergies, Adverse Reactions, [...] Stop 02/18/20 11:16:00EDT, 10/21/19 11:16:00 EST, Tablet, [facility] #[id number], 170, cm, 10/20/19 13:48:00 EST, Height, 92.3, kg, 10/15/19 6:38:00 EST, Dry Weight Start Date: 10/21/19 Stop Date: 02/18/20 Status: Ordered atorvastatin 20 mg oral tablet 1 tablet = 20 mg, By Mouth, Daily, # 90 tablet, 1 Refills, Maintenance, 10/21/19 11:16:00 EST, Tablet, [facility] #[id number], 170, cm, 10/20/19 13:48:00 EST, Height, 92.3, [...] 02/21/19 8:58:39 EDT, Route to Pharmacy Electronically, [id number], [facility] Start Date: 02/21/19 Stop Date: 04/22/19 Status: Ordered Creon 36,000 units oral delayed release capsule 1 capsule, By Mouth, 3 times a day, with each meal and snack, # 270 capsule, 1 Refills, Maintenance, 10/21/19 11:17:00 EST, [facility] #[id number], 1 capsule By Mouth 3 times a [...] 08/24/19 9:15:39 EST, Route to Pharmacy Electronically, [id number], [facility] #[id number], 170, cm, 08/24/19 8:38:44 EST, H... Start [...] 0 Refills, Maintenance, 09/28/19 0:43:00 EST, Tablet, [facility] #[id number], 171, cm, 09/27/19 22:45:00 EST, Height, 92.2, [...] 02/21/19 8:59:46 EDT, Route to Pharmacy Electronically, [id number], [facility] Start Date: 02/21/19 Stop Date: [...] Refills, Maintenance, 12/05/19 20:49:00 EDT, DIS Tablet, [id number], 170, cm, 12/05/19 19:19:00 EDT, Height, 88.7, [...]
--- OUTSIDE RECORDS SUMMARY | 2024-01-27 11:33 | XMS_ITS | Continuity of Care Document ---
Author Organization [facility] Address [address] [place] [address]- Care Team Providers Care Asphalt Worker Name Role Phone Maranda WILCOX, Silvio Martinez Primary Care Physician En[place] [facility] [place]s): 11/08/20 - 12/08/20 [facility] [address] [place] [address]- Allergies, Adverse Reactions, Alerts Substance Reaction Severity [...] capsule, 1 Refills, Maintenance, 10/21/19 11:17:00 EST, [facility] #[id number], 1 capsule By Mouth 3 times a [...] 04/09/21 14:58:00 EDT, 04/09/20 14:57:00 EDT, Tablet, [facility] #[id number], 169, cm, 04/05/20 12:55:00 EDT, Height, 85, [...] 3 Refills, Maintenance, 10/16/20 16:21:00 EST, Tablet, [facility] #[id number], Partial fill upon patient request if the prescription is for a schedul... Start Date: 10/16/20 Stop Date: 02/13/21 Status: Ordered ondansetron 4 mg oral tablet 1 tablet = 4 mg, By Mouth, Every 8 hours, PRN Nausea & Vomiting, # 20 tablet, 0 Refills, Maintenance, 06/18/20 16:48:00 EDT, Tablet, [facility] #[id number], 170, cm, 06/18/20 15:14:00 EDT, Height, 90.4, kg, 06/18/20 15:14:00 EDT, Dry Weight Start Date: 06/18/20 Stop Date: 06/25/20 Status: Ordered ondansetron 8 mg oral tablet, disintegrating 1 tablet = 8 mg, By Mouth, 3 times a day, # 10 tablet, 0 Refills, Maintenance, 10/30/20 17:44:00 EST, [facility] #[id number], Partial fill upon patient request if the [...] Refills, Soft Stop, 10/02/20 11:57:00 EST, Powder, [facility] #[id number], Partial fill upon patient... Start Date: 10/02/20 [...]
--- OUTSIDE RECORDS SUMMARY | 2024-01-27 11:33 | XMS_ITS | Continuity of Care Document ---
Author Organization [facility] Address [address] [place] [address]- Care Team Providers Care Keyseating Machine Set Up Operator Name Role Phone Maranda WILCOX, Silvio Martinez Primary Care Physician [place] [facility] [place]s): 09/30/20 - 10/07/20 [facility] [address] [place] [address]- Attending Physician: Manda Tomas MD Referring Physician: Silvio Low MD Allergies, [...] capsule, 1 Refills, Maintenance, 10/21/19 11:17:00 EST, [facility] #[id number], 1 capsule By Mouth 3 times a [...] 04/09/21 14:58:00 EDT, 04/09/20 14:57:00 EDT, Tablet, [facility] #[id number], 169, cm, 04/05/20 12:55:00 EDT, Height, 85, [...] tablet, 3 Refills, Maintenance, 05/28/20 11:56:00 EDT, [facility] #[id number], 170, cm, 05/27/20 0:11:00 EDT, Height,90.4, kg, [...] 0 Refills, Maintenance, 06/18/20 16:48:00 EDT, Tablet, [facility] #[id number], 170, cm, 06/18/20 15:14:00 EDT, Height, 90.4, [...] Refills, Soft Stop, 10/02/20 11:57:00 EST, Powder, [facility] #53911, Partial fill upon patient... Start Date: 10/02/20 [...]
--- OUTSIDE RECORDS SUMMARY | 2024-01-27 11:33 | XMS_ITS | Continuity of Care Document ---
Author Organization [facility] Address [address] [place] [address]- Care Team Providers Care Timber Buyer Name Role Phone Bienvenido WILCOX, Agustín Joaquin Primary Care Physician Encounter [facility] Date(s): 01/21/22 - 03/06/22 [facility] [address] [place] [address]- Attending Physician: Renan WILCOX, Sourav Anderson Allergies, Adverse Reactions, Alerts Substance Reaction [...] tablet, 0 Refills, Maintenance, 12/26/20 12:55:00 EDT, [facility] #[id number], Partial fill upon patient request if the [...] Refills, Soft Stop, 10/27/21 14:15:00 EST, Powder, [facility] #[id number], Partial fill upon patient... Start Date: 10/27/21 [...] Model STENT STRETCH VL 6FR - BSCI (056-649) 1 [employer] Amanda Unknown GO:No Information Assigning Authority: FDA
--- OUTSIDE RECORDS SUMMARY | 2024-01-27 11:33 | XMS_ITS | Continuity of Care Document ---
Author Organization [facility] Address [address] [place] [address]- Care Team Providers Care Silk Screen Layout Drafter Name Role Phone Silvio Low MD Primary Care Physician Encounter [facility] Date(s): 05/30/20 - 06/29/[address] [address]- [facility] Attending Physician: Maximo Cano Admitting Physician: [...] mL, Refills 11, Tot. Refills 11, Maintenance, [facility]: [id number], 05/08/20 16:20:00 EDT, Supply, 169, cm, 04/15/20 [...] capsule, 1 Refills, Maintenance, 10/21/19 11:17:00 EST, [facility] #[id number], 1 capsule By Mouth 3 times a [...] 04/09/21 14:58:00 EDT, 04/09/20 14:57:00 EDT, Tablet, [facility] #[id number], 169, cm, 04/05/20 12:55:00 EDT, Height, 85, [...] tablet, 3 Refills, Maintenance, 05/28/20 11:56:00 EDT, [facility] #[id number], 170, cm, 05/27/20 0:11:00 EDT, Height,90.4, kg, [...] Acute 04/30/21 16:58:00 EDT, 04/30/20 16:57:00 EDT, [facility] #[id number], 169, cm, 04/15/20 17:38:00 EDT, Height, 85, kg, 03/15/20 2:33:00 EDT, Dry Weight Start Date: 04/30/20 Stop Date: 04/30/21 Status: Ordered methylprednisolone 2 gm injectable powder for injection See Instructions, inject 4 grams IM for adrenal crisis, # 48 Gm, 11 Refills, Acute 06/08/21 12:08:00 EDT, 05/03/21 10:04:00 EDT, [facility] #[id number], 169, cm, 04/15/20 17:38:00 EDT, Height, 85, kg, 03/15/20 2:33:00 EDT, Dry Weight Start Date: 05/03/21 Stop Date: 06/08/21 Status: Ordered methylprednisolone 2 gm injectable powder for injection See Instructions, inject 4 grams IM for adrenal crisis, # 48 Gm, 3 Refills, Acute 05/03/21 10:04:00EDT, 05/03/20 10:03:00 EDT, [facility] #[id number], 169, cm, 04/15/20 17:38:00 EDT, Height, 85, kg, 03/15/20 2:33:00 EDT, Dry Weight Start Date: 05/03/20 Stop Date: 05/03/21 Status: Ordered methylprednisolone 2 gm injectable powder for injection See Instructions, inject 4 grams IM for adrenal crisis, # 48 Gm, 3 Refills, Acute 05/03/21 11:58:00EDT, 05/03/21 10:04:00 EDT, [facility], 169, cm, 04/15/20 17:38:00 [...] 0 Refills, Maintenance, 06/18/20 16:48:00 EDT, Tablet, [facility] #[id number], 170, cm, 06/18/20 15:14:00 EDT, Height, 90.4, [...] 11 Refills, Soft Stop, 05/03/20 16:07:00 EDT, [facility] #[id number], 169, cm, 04/15/20 17:38:00 EDT, Height, 85, [...] Refills, Maintenance, 12/05/19 20:49:00 EDT, DIS Tablet, [facility] #[id number], 170, cm, 12/05/19 19:19:00 EDT, Height, 88.7, [...]
--- OUTSIDE RECORDS SUMMARY | 2024-01-27 11:34 | XMS_ITS | Continuity of Care Document ---
Author Organization [facility] Address [address] [place] [address]- Care Team Providers Care Fire Protection Engineer Name Role Phone Agustín Faria MD Primary Care Physician Encounter [facility] Date(s): 02/23/22 - 03/25/[address] [address]- Allergies, Adverse Reactions, Alerts Substance Reaction Severity [...] tablet, 0 Refills, Maintenance, 12/26/20 12:55:00 EDT, [facility] #[id number], Partial fill upon patient request if the [...] Refills, Soft Stop, 10/27/21 14:15:00 EST, Powder, [facility] #[id number], Partial fill upon patient... Start Date: 10/27/21 [...] Model STENT STRETCH VL 6FR - BSCI (097-843) 1 [employer] Unknown GO:No Information Assigning Authority: FDA
--- OUTSIDE RECORDS SUMMARY | 2024-01-27 11:34 | XMS_ITS | Continuity of Care Document ---
Author Organization [facility] Address [address] [place] [address]- Care Team Providers Care Plater Barrel Name Role Phone Silvio Low MD Primary Care Physician Encounter [facility] [place] Date(s): 11/11/20 - 11/18/20 [facility] [address] [place] [address]- Attending Physician: Manda Tomas MD Referring Physician: Silvio Low MD Allergies, Adverse Reactions, Alerts Substance Reaction Severity Status propranolol Rash Active Zoloft tachycardia n/v Active Haldol Active Reglan severe anxiety~panic Active Xarelto rash Active Nardil Palpitations - [...] capsule, 1 Refills, Maintenance, 10/21/19 11:17:00 EST, [facility] #[id number], 1 capsule By Mouth 3 times a [...] 04/09/21 14:58:00 EDT, 04/09/20 14:57:00 EDT, Tablet, [facility] #[id number], 169, cm, 04/05/20 12:55:00 EDT, Height, 85, [...] tablet, 3 Refills, Maintenance, 05/28/20 11:56:00 EDT, [facility] #[id number], 170, cm, 05/27/20 0:11:00 EDT, Height,90.4, kg, [...] 3 Refills, Maintenance, 10/16/20 16:21:00 EST, Tablet, [facility] #[id number], Partial fill upon patient request if the [...] 0 Refills, Maintenance, 06/18/20 16:48:00 EDT, Tablet, [facility] #[id number], 170, cm, 06/18/20 15:14:00 EDT, Height, 90.4, kg, 06/18/20 15:14:00 EDT, Dry Weight Start Date: 06/18/20 Stop Date: 06/25/20 Status: Ordered ondansetron 8 mg oral tablet, disintegrating 1 tablet = 8 mg, By Mouth, 3 times a day, # 10 tablet, 0 Refills, Maintenance, 10/30/20 17:44:00 EST, [facility] #[id number], Partial fill upon patient request if the [...] Refills, Soft Stop, 10/02/20 11:57:00 EST, Powder, [facility] #[id number], Partial fill upon patient... Start Date: 10/02/20 [...]
--- OUTSIDE RECORDS SUMMARY | 2024-01-27 11:34 | XMS_ITS | Continuity of Care Document ---
Author Organization [facility] Address [address] [place] [address]- Care Team Providers Care Header Boss Name Role Phone Dash WILCOX (OR), Paola Anderson Primary Care Physician [id number] Date(s): 08/17/23 - 08/27/[address] [address]- Discharge Disposition: A-D/C Home Attending Physician: Spike WILCOX, Deana Admitting Physician: Camila WILCOX, Devon Referring Physician: Not on Staff, Referring MD [...] 0 Refills, Maintenance, 07/15/23 11:42:00 EDT, Tablet, [facility] #[id number], Partial fill upon patient request if the [...] Status: Ordered Dilaudid 2 mg oral tablet = 2 mg, By Mouth, Every 6 hours, PRN Pain , Severe, # 12 tablet, 0 Refills, Acute 08/28/23 8:50:00 EST, 08/27/23 8:50:00 EST, Tablet, [facility] #[id number], Partial fill upon patient request ifthe prescription is for a schedule II opioid drug.,... Start Date: 08/27/23 Stop Date: 08/28/23 Status: Ordered FLUoxetine 20 mg oral capsule [...] opioid drug. Start Date: 08/18/23 Status: Ordered gabapentin 300 mg oral capsule 300 mg, Capsule, By Mouth, 12/08/23 9:00:00 EST Start Date: 08/27/23 Stop Date: 08/27/23 Status: Completed KlonoPIN 1 mg oral tablet 1 tablet = 1 mg, By Mouth, 2 times a day, # 60 tablet, 4 Refills, Maintenance, 08/10/23 14:21:00 EST, Tablet, [facility] #[id number], Partial fill upon patient request if the prescription is fora schedule II opioid drug., 170, cm, 08/05/23 3:21:... Start Date: 08/10/23 Stop Date: 01/07/24 Status: Ordered metoprolol 100 mg oral tablet 100 mg, 1, tablet, By Mouth, 2 times a day, # 60 tablet, Refills 3, Tot. Refills 3, Maintenance, 05/14/23 20:59:00 EDT, Route to Pharmacy Electronically, [facility] #[id number], Partial fill upon patient request if the prescription is for a sched... Start Date: 05/14/23 Stop Date: 09/11/23 Status: Ordered metoprolol 100 mg oral tablet 100 mg, Tablet, By Mouth, 08/27/23 9:00:00 EST Start Date: 08/27/23 Stop Date: 08/27/23 Status: Completed montelukast 10 mg oral tablet 10 mg, 1, tablet, By Mouth, Daily in PM, Maintenance, 08/18/23 8:47:00 EST Start Date: 08/18/23 Status: Ordered ondansetron 4 mg oral tablet, disintegrating 2 tablet = 8 mg, By Mouth, Every 8 hours, PRN Nausea & Vomiting, # 1 tablet, 0 Refills, Maintenance, 05/13/23 10:33:00 EDT, Tablet, [facility] #[id number], Partial fill upon patient request if the prescription is for a schedule II opioid drug., 1... Start Date: 05/13/23 Stop Date: 05/16/23 Status: Ordered potassium chloride 10 mEq oral tablet, extended release 2 tablet = 20 mEq, By Mouth, Daily, # 14 tablet, 0 Refills, Soft Stop, 08/27/23 8:49:00 EST, ER Tablet, [facility] #[id number], Partial fill upon patient request if the [...] capsule, 4 Refills, Maintenance, 08/10/23 14:14:00 EST, [facility] #[id number], Partial fill upon patient request if the [...] Refills, Soft Stop, 05/27/23 14:16:00 EDT, Powder, [facility] #[id number], Partial fill upon patient... Start Date: 05/27/23 Status: Ordered spironolactone 25 mg oral tablet 25 mg, 1, tablet, By Mouth, Daily, # 30 tablet, Refills 3, Tot. Refills 3, Maintenance, 05/14/23 20:55:00 EDT, Route to Pharmacy Electronically, [facility] #[id number], Partial fill upon patientrequest if the prescription is for a schedule II op... Start Date: 05/14/23 Stop Date: 09/11/23 Status: Ordered Wellbutrin SR 100 mg/12 hours oral tablet, extended release 1 tablet = 100 mg, By Mouth, Daily, # 30 tablet, 4 Refills, Maintenance, 08/10/23 14:26:00 EST, [facility] #[id number], Partial fill upon patient request if the [...] compatible 2Problem added by Discern Expert 3IAROGENIC Results Orders for Microbiology Reports Name Date Blood Culture 08/17/23 Blood Culture #2 08/17/23 Microbiology Reports TEST:Blood Culture STATUS:Auth (Verified) BODY SITE: SOURCE:Blood COLLECTED DATE/TIME:08/17/23 1:21 PM Blood Culture SPECIMEN DESCRIPTION : BLOOD LEFT HAND SPECIAL REQUESTS : NONE CULTURE : NO GROWTH 5 DAYS. REPORT STATUS : FINAL 08/22/2023 TEST:Blood Culture, Second Order STATUS:Auth (Verified) BODY SITE: SOURCE:Blood COLLECTED DATE/TIME:08/17/23 1:16 PM Blood Culture, Second Order SPECIMEN DESCRIPTION : BLOOD LEFT F A SPECIAL REQUESTS : NONE CULTURE : NO GROWTH 5 DAYS. REPORT STATUS : FINAL 08/22/2023 Radiology Reports * Exam Date Time Procedure Performing Provider Status 08/25/23 11:04 AM Small Bowel Series Bruno Florentino; Auth (Verified) Notes: (Small Bowel Series) Reason For Exam: Pain;obstruction RESULT: Small Bowel Series Small Bowel Series INDICATION: Rule out obstruction. Chronic abdominal pain. COVID positive during this admission. Essentially negative recent endoscopy and colonoscopy. History of multiple prior abdominal surgeries. COMPARISON: Post recent KUB 08/21/2023 and upper GI 02/16/2019 FINDINGS: A preliminary plastics tooling engineer view shows normal gas pattern without obstruction. The patient was given oral barium and a follow-up film at 30 minutes was obtained which shows that the contrast has reached the ascending colon. Normal caliber small bowel loops without obstruction. IMPRESSION: Limited study shows no evidence of obstruction. Dr. Lala notified. WSN: [id number] Ordering Physician: Devon Jensen Dictated By: Jimbo Hernandez MD Dictated Date/Time: 08/25/23 11:09 a Reviewed By: Jimbo Hernandez MD Signed By: Jimbo Hernandez MD Signed Date/Time: 08/25/23 11:09 am Transcribed By: DIANE Transcribed Date/Time: 08/25/23 10:55 am * Exam Date Time Procedure Performing Provider Status 08/21/23 10:52 AM Abdomen AP KuIndu miller; Auth (Ve rified) Notes: (Abdomen AP) Reason For Exam: Nausea/Vomiting RESULT: XR Abdomen AP XR Abdomen AP supine view INDICATION/CLINICAL QUESTION: Nausea and vomiting COMPARISON: 08/18/2023 FINDINGS: Normal bowel gas pattern. No evidence of obstruction. No evidence of pneumoperitoneum. No acute bone findings. Clear lung bases. IMPRESSION: Normal gas pattern. No acute findings. WSN: [id number] Ordering Physician: Devon Jensen Dictated By: Jimbo Hernandez MD Dictated Date/Time: 08/21/23 2:02 pm Reviewed By: Jimbo Hernandez MD Signed By: Jimbo Hernandez MD Signed Date/Time: 08/21/23 2:02 pm Transcribed By: DIANE Transcribed Date/Time: 08/21/23 1:59 pm * Exam Date Time Procedure Performing Provider Status 08/18/23 9:08 PM Abdomen AP Shantanu , Susie; Aut h (Verified) Notes: (Abdomen AP) Reason For Exam: Constipation RESULT: XR Abdomen AP XR Abdomen AP 1 view INDICATION/CLINICAL QUESTION: Reason: Constipation; Clinical Question(s): Obstruction; Order Comment: 08 18 2023 20:45:46 EST called for pt. to come down [facility] COMPARISON: 12/16/2020 x-ray TECHNIQUE: Supine AP view of abdomen. FINDINGS: There is a nonspecific nonobstructive bowel gas pattern. Evidence for previous ventral hernia repair. Bilateral tubal clips. No significant retention of stool. The limited visualized lung bases are clear. Right upper quadrant cholecystectomy clips are present. IMPRESSION: Nonspecific nonobstructive bowel gas pattern. No significant retention of stool to indicate constipation. No free air. WSN: [id number] Ordering Physician: Arsen Geronimo Dictated By: Aleksandr Hopkins MD Dictated Date/Time: 08/18/23 10:49 p Reviewed By: Aleksandr Hopkins MD Signed By: Aleksandr Hopkins MD Signed Date/Time: 08/18/23 10:49 pm Transcribed By: DIANE Transcribed Date/Time: 08/18/23 10:49 pm Vital Signs Most recent to oldest [Reference Range]: 1 2 3 Height 170 cm (08/27/23 7:32 AM) 170 cm (08/27/23 4:24 AM) 170 cm (08/27/23 1:02 AM) Weight 99 kg (08/23/23 11:03 AM) 99 kg (08/18/23 9:13 AM) 99 kg (08/18/23 6:13 AM) Oxygen Saturation [94-100 %] 99 % (08/27/23 7:32 AM) 96 % (08/27/23 4:24 AM) 97 % (08/27/23 1:02 AM) Pulse Rate [55-90 bpm] 67 bpm (08/27/23 9:24 AM) 67 bpm (08/27/23 7:32 AM) 59 bpm (08/27/23 4:24 AM) Body Mass Index [18.5-24.99 kg/m2] 34.26 kg/m2 *>HHI* (08/23/23 11:03 AM) 34.26 kg/m2 *>HHI* (08/18/23 9:13 AM) 34.26 kg/m2 *>HHI* (08/18/23 6:13 AM) Blood Pressure [90-138/55-84 mm Hg] 110/83mm Hg (08/27/23 9:24 AM) 110/83mm Hg (08/27/23 7:32 AM) 94/49mm Hg (08/27/23 4:24 AM) Respiratory Rate [16-30 br/min] 16 br/min (08/27/23 9:24 AM) 18 br/min (08/27/23 7:32 AM) 18 br/min (08/27/23 4:24 AM) Temperature [96.8-100.4 DegF] 98.2 DegF (08/27/23 7:32 AM) 98.4 DegF (08/27/23 4:24 AM) 98.2 DegF (08/27/23 1:02 AM) Liters per Minute 0 L/min (08/26/23 5:55 AM) 0 L/min (08/26/23 12:49 AM) 0 L/min (08/25/23 7:44 PM) Mode of Delivery (Oxygen) Room air (08/27/23 7:32 AM) Room air (08/27/23 4:24 AM) Room air (08/27/23 1:02 AM) Blood pressure sites Arm, right (08/27/23 7:32 AM) Arm, left (08/27/23 4:24 AM) Arm, right (08/27/23 1:02 AM) Temperature Route Oral (08/27/23 7:32 AM) Oral (08/27/23 4:24 AM) Oral (08/27/23 1:02 AM) Dry Weight 99 kg (08/18/23 9:13 AM) 99 kg (08/18/23 6:13 AM) 99 kg (08/18/23 2:19 AM) Weight Obtained Via Standing scale (08/16/23 7:59 PM) Patient/family stated (08/16/23 9:05 AM) Dry Weight Obtained Via Patient/family s tated (08/16/23 9:05 AM) Social History Social History Type Response [...] Unknown Active Un known Consult note * Hubert Roper MD: MODIFY, MODIFY, MODIFY, MODIFY, MODIFY, MODIFY, MODIFY, MODIFY, MODIFY, MODIFY, MODIFY, MODIFY, MODIFY, MODIFY, MODIFY, MODIFY, MODIFY, MODIFY, MODIFY, MODIFY, MODIFY, MODIFY, PERFORM Event Display: Consult Authored Date: [id number] Patient: ??MARY ALICE IBRAHIM ? Age:??42 Years?Sex:??Female?:??1980?? Referrring Provider Not on Staff, Referring MD Dr Garnett. Patient follows with Dr. Prescott (gastroenterology)??and a GI OR doctor. Chief Complaint N/V/D for 3 days, reports some cp for 3 days History of Present Illness Ms. Ibrahim is a 42 y/o female with a??hx??of gastroparesis, constipation, esophageal candidiasis, esophagitis and gastritis, hepatic cysts, hiatal hernia s/p Jimena Fundoplication in 2011,?? secondaryadrenal insufficiency per Dr. Cheng, SVT and bradycardia s/p pacemaker, NM's in the past?, HTN, HLD,??asthma, PTSD, and opiate dependence. After long hospitalization she was discharge on April, then she had an EGD that show esophagitis and pre-cancerous lesion in stomach, hiatal hernia. Apparently colonoscopy was attempted but not done due to poor preparation. She??had a CT scan at at [facility]) 1 week ago and tells me it showed diverticulitis, hepatomegaly, a hiatal hernia and umbilical hernia. She was not prescribed antibiotics at that time and was instructed to follow up with her GI doctor at the OR.?? She had a video visit with her GI doctor on Wednesday, who scheduled her an endoscopy and colonoscopy??at the end of September. ?? She is admitted with abdominal pain, nausea, vomiting and diarrhea. She has been sleeping a lot She is having about 9-10 episodes of watery diarrhea. She has frequent vomiting, at times with some blood content. Not having vomiting in the last coupleof days. ?? She has progressively worsening abdominal pain for the past 2 months, the pain us up to 10/10??at times??and she never gets relief.? In the ED she was started on benadryl and dilaudid for her abdominal pain/itching. She states she cannot take reglan or other promotility drugs, so she was started on Zofran. Review of Systems Constitutional:??Patient denies fever, chills, sweats, admits fatigue, weakness, 30 pounds weight gain?? Cardiovascular: Patient denies current chest pain, palpitations Pulmonary: Patient admits??dyspnea related to abdominal pain, denies??cough, hemoptysis, wheezing GI: Patient admits nausea, vomiitng, abd pain, diarrhea, and hematemesis, denies hematochezia/melena?? : Patient denies dysuria, urgency, frequency, hematuria Neurologic: Patient denies headache,??syncope, ataxia, change in bowel or bladder control Musculoskeletal: Patient reports back pain Hematologic/Lymphatic: Patient denies easy bleeding or bruising Psychiatric: Patient admits current anxiety,??denies depression Endocrine: Patient denies polyuria, polydypsia Integumentary: Patient admits hair loss, denies rash?? Physical Exam Vitals & Measurements T:??98.8?F?? TMIN:??97.3?F?? TMAX:??99.2?F?? HR:??90??(Peripheral)?? RR:??18?? BP:??122/70?? SpO2:??94%?? WT:??99??kg?? Gen; no acute respiratory distress, cooperating with exam,??obese young female, pleasant, interactive ?HEENT; no facial asymmetry?Lungs; CATB ?Cardiac; RRR, no M/R/G ?Abdomen; multiple surgical scars,, no overt abdominal distention.?? Patient had a mild tenderness at right??upper quadrant, left upper quadrant??and suprapubic area, no guarding no rebound ?Extremity; no edema ?Neuro exam; alert oriented x3, CN 2-12 normal Assessment/Plan Diagnoses Patient with GERD s/p fundoplication, found recently with esophagitis. She has repeated vomiting with some blood content. That is likely due to esophagitis. At this point there is no evidence of profuse GI bleeding. EGD not required at this point, it was done recently. Agree with PPI. Advise to do barium swallow-UGI series to further evaluate the morphology of her fundoplication ?? She has long history of constipation, that was not controlled with several laxatives, she can be several weeks with no BMs. CT on 07/15/23 show constipation. She is currently complaining of diarrhea,that is likely due to constipation with overflow diarrhea. For management of that I ordered a gallon of NuLYTELY. That should take care of current episode. After that continue Miralax 17gr 2 times a day. Dulcolax 5mg 2 tab on MWF. Likely she has no colon lesions, still agree with colonoscopy as plan. Advise to do a barium enema, that will help to evaluate colon redundancy ?? Unlikely that she was found with diverticulitis recently, it will be good to review studies, currently she has no evidence of diverticulitis ?? She needs to continue following with her mass spectrometry specialist, that is important. She has a chronic condition that requires regular follow up. She is already schedule for EGD/colonoscopy with her mass spectrometry specialist. Problem List/Past Medical History Ongoing Abdominal pain Adrenal insufficiency Arm DVT (deep venous thromboembolism), chronic Asthma Chest pain Chronic back pain Colitis Diarrhea Essential hypertension Functional overlay Gastroduodenitis Gastroesophageal reflux disease Hyperlipidemia with target LDL less than 100 Insufficiency, adrenal Allyssa's syndrome Mast cell disease MDD (major depressive disorder), recurrent episode, mild Narcotic dependence Normal coronary arteries Obese class I Ocular migraine Opioid dependence Pacemaker, Biotronik, inserted 10/29/14 Polypharmacy PTSD (post-traumatic stress disorder) PTSD (post-traumatic stress disorder) S/p REFUGIO-BSO SVT (supraventricular tachycardia) Procedure/Surgical History EGD 2020: Gastritis, duodenitis. s/p fundoplication 1. Small bowel, biopsy: - ??Duodenal mucosa without pathologic change. - ??Normal villous architecture. 2. Stomach, biopsy: - ??Gastric antral and fundic-body mucosa with surface reactive changes consistent with a chemical etiology. - ??H. pylori organisms are not identified on H&E histology. Medications Inpatient 0.9% NaCL 1000mL w/KCL 20mEq 1,000 mL, 1000 mL, IV Infusion Acetaminophen Tablet, 650 mg, By Mouth, Every 4 hours, PRN aspirin 81 mg oral delayed release tablet, 81 mg, By Mouth, Daily Ativan Inj, 1 mg, IV Push Slowly, Every 8 hours, PRN atorvastatin 40 mg oral tablet, 40 mg, By Mouth, Daily Benadryl Inj, 25 mg= 0.5 mL, IV Push, Every 4 hours, PRN buPROPion 100 mg oral tablet, 100 mg, By Mouth, Daily Chloraseptic Lozenge, 1 lozenge, By Mouth, Every 3 hours, PRN Dilaudid Inj, 2 mg= 1 mL, IV Push Slowly, Every 6 hours, PRN Famotidine Inj, 20 mg= 2 mL, IV Push Slowly, Every 12 hours gabapentin 300 mg oral capsule, 300 mg, By Mouth, Daily in AM gabapentin 300 mg oral capsule, 600 mg, By Mouth, Daily at bedtime gabapentin 300 mg oral capsule, 600 mg, By Mouth, Daily before lunch HydroCORTisone Inj, 100 mg, IV Push Slowly, Every 8 hours metoprolol 100 mg oral tablet, 100 mg, By Mouth, 2 times a day montelukast 10 mg oral tablet, 10 mg, By Mouth, Daily NaCL 0.9% Flush, 3 mL, IV Push, Every 8 hours NaCL 0.9% Flush, 3 mL, IV Push, Every 8 hours, PRN prazosin 1 mg oral capsule, 2 mg, By Mouth, Daily at bedtime Protonix Inj, 40 mg, IV Push Slowly, Every 12 hours PROzac 20 mg oral capsule, 40 mg, By Mouth, Daily Remove Patch, 1 each, Topically, Every 72 hours Scopolamine 1 mg Patch, 1 mg= 1 each, Topically, Every 72 hours Ventolin 90 mcg Inhaler, 90 mcg= 1 puffs, Inhalation, Every 4 hours, PRN Zofran Inj, 4 mg, IV Push, Every 6 hours Home (Vitamin D3) Cholecalciferol 400 MCFP units/mL oral syringe 1 mL, 10 mcg, By Mouth, Daily 3cc syring with 21 gu 1 needle, See Instructions, 11 refills Albuterol (Eqv-ProAir HFA) 90 mcg/inh inhalation aerosol, 2 puffs, Inhalation, Every 6 hours, 3 refills Aspirin Low Dose 81 mg oral delayed release tablet, 1 tablet, By Mouth, Daily Ativan 1 mg oral tablet, 1 mg= 1 tablet, By Mouth, 3 times a day, PRN atorvastatin 40 mg oral tablet, 40 mg= 1 tablet, By Mouth, Daily Colace sodium 100 mg oral capsule, 100 mg= 1 capsule, By Mouth, 2 times a day cyclobenzaprine 5 mg oral tablet, 5 mg= 1 tablet, By Mouth, 2 times a day, PRN famotidine 20 mg oral tablet, 20 mg= 1 tablet, By Mouth, 2 times a day Flonase 50 mcg/inh nasal spray, 2 sprays, Nares, Both, 2 times a day, PRN gabapentin 300 mg oral capsule, See Instructions, 4 refills Insulin Syringe, BD Ultra-Fine 1 cc 31 G x 8 mm (02/02in), See Instructions, 11 refills KlonoPIN 0.5 mg oral tablet, 0.5 mg= 1 tablet, By Mouth, Daily, 4 refills KlonoPIN 1 mg oral tablet, 1 mg= 1 tablet, By Mouth, 2 times a day, 4 refills lidocaine 1.8% topical film, 1 patch, Topically, Daily loratadine 10 mg oral tablet, 10 mg= 1 tablet, By Mouth, Daily Melatonin, See Instructions metoprolol 100 mg oral tablet, 100 mg= 1 tablet, By Mouth, 2 times a day, 3 refills montelukast 10 mg oral tablet, 10 mg= 1 tablet, By Mouth, Daily ondansetron 4 mg oral tablet, disintegrating, 8 mg= 2 tablet, By Mouth, Every 8 hours, PRN prazosin 2 mg oral capsule, 2 mg= 1 capsule, By Mouth, Daily at bedtime, 4 refills Protonix 40 mg oral delayed release tablet, 40 mg= 1 tablet, By Mouth, 2 times a day PROzac 20 mg oral capsule, 40 mg= 2 capsule, By Mouth, Daily, 4 refills prucalopride 2 mg oral tablet, 2 mg= 1 tablet, By Mouth, Daily Senna, 8.5 mg, By Mouth, 2 times a day Solu-CORTEF Act-O-Vial 100 mg injection, See Instructions, 11 refills spironolactone 25 mg oral tablet, 25 mg= 1 tablet, By Mouth, Daily, 3 refills Wellbutrin SR 100 mg/12 hours oral tablet, [...] Results Test Name Test Result Date/Time WBC 12.3 k/mm3 08/16/2023 09:19 EST Hgb 13.9 Gm/dL 08/16/2023 09:19 EST Hct 41.9 % 08/16/2023 09:19 EST Platelet Count 364 k/mm3 08/16/2023 09:19 EST BUN 22 mg/dL 08/16/2023 09:19 EST Creatinine-Blood 0.8 mg/dL 08/16/2023 09:19 EST Estimated GFR Creatinine 94 ML/MIN/1.73 M2 08/16/2023 09:19 EST Alkaline Phosphatase 143 units/L 08/16/2023 09:19 EST Lipase 17 units/L 08/16/2023 09:19 EST AST (SGOT) 14 units/L 08/16/2023 09:19 EST ALT (SGPT) 14 units/L 08/16/2023 09:19 EST Bilirubin, Total 0.3 mg/dL 08/16/2023 09:19 EST TSH 2.02 uIU/mL 06/27/2023 09:20 EDT 25 OH-Vitamin D Level 25.6 ng/mL 06/08/2022 09:41 EDT Diagnostic Results (07/15/2023 07:[address] Abd/Pelvis W/ IV Contrast Only) Liver: Unchanged well-circumscribed hypodense lesions scattered throughout the liver parenchyma measuring up to 1.9 cm. Normal liver contour. Gallbladder: Absent consistent with prior cholecystectomy. Bile ducts: No biliary ductal dilation. Spleen: Normal. Accessory splenic tissue is incidentally noted. Pancreas: Normal... Reproductive organs: Status post hysterectomy. Stomach, small bowel, and large bowel: Status post fundoplication. Moderate stool retention throughout the colon. No evidence of bowel wall thickening. No pericolonic inflammatory change. No evidenceof small bowel obstruction.?? Appendix: Surgically absent.?? Peritoneum and retroperitoneum: No ascites or pneumoperitoneum. No omental or mesenteric lesions. Bones: No acute abnormality. Prior L5-S1 fusion. IMPRESSION:?No acute findings in the abdomen or pelvis to explain the patient's symptoms. ?? History and physical note * Joaquin Garnett DO: PERFORM, MODIFY, MODIFY, MODIFY Event Display: History and Physical Hospital Authored Date: Patient: ??MARY ALICE IBRAHIM ? Age:??42 Years?Sex:??Female?:??1980?? Chief Complaint/Reason for Consultation N/V/D for 3 days, reports some cp for 3 days History of Present Illness The patient is a 42 y/o female with a??hx??of gastroparesis, esophageal candidiasis, esophagitis and gastritis in November of 2015, hepatic cysts, hiatal hernia s/p Jimena Fundoplication in 2011,?? secondary adrenal insufficiency per Dr. Cheng, SVT and bradycardia s/p pacemaker, NM's in the past?, HTN, HLD,??asthma, PTSD, and opiate dependence to name a few.??She is presenting with abdominal pain, nausea, vomiting and diarrhea. She states since Thanks she has been sleeping a lot with about 9-10 episodes of watery diarrhea. She reports hematemsis from vomiting as well as angina, which has resolved. ?? The patient states that she was hospitalized for??70 days and discharged in April. During her hospital stay, it sounds as though she had an endoscopy in March, which she states she was found to have esophagitis, something precancerous in the stomach,??and a hiatal hernia. Her colon prep was not sufficient for an adequate colonoscopy.??She was placed on 40mg of protonix twice daily and 20mg of famotidine twice daily.? She states she has since had progressively worsening abdominal pain for the past 2 months.??She states??the pain??is a 10/10??at times??and she never gets relief.??Patient follows with Dr. Prescott and a GI OR doctor. She had a video visit with her GI doctor on Wednesday, who scheduled her an endoscopy and colonoscopy??at the end of September.??Of note the patient had a CT scan at at [facility]) 1 week ago and tells me it showed diverticulitis, hepatomegaly, a hiatal hernia and umbilical hernia. She was not prescribed antibiotics at that time and was instructed to follow up with her GI doctor at the OR.? In the ED she was started on benadryl and dilaudid for her abdominal pain/itching. She states she cannot take reglan or other promotility drugs, so she was started on Zofran. Patient wanted to be admitted to [facility], but they do not have any bed availability. GI at [facility] also did not call back. A CT scan was not performed in the ED as she has had 5 CT scans within the past year within the [facility]??system, as??well as other imaging at other hospital systems, and radaitaion exposure will??likely cause more harm than benefit.? In terms of labs she does have a white count of 12.3, which has been elevated??on 08/05/2023 and07/15/23. Abs neutrophil count is mildly elevated at 7.9, hx of??elevated abs lymphocytes at 3.3, with elevated BUN: Cr ratio.??LFTs and lipase at baseline. Patient had two troponins that were flat in the ED, ruling out ACS. She is admitted to medicine for continued nausea, vomiting, abd pain, and diarrhea. Review of Systems Constitutional:??Patient denies fever, chills, sweats, admits fatigue, weakness, 30 pounds weight gain?? Cardiovascular: Patient denies current chest pain, palpitations Pulmonary: Patient admits??dyspnea related to abdominal pain, denies??cough, hemoptysis, wheezing GI: Patient admits nausea, vomiitng, abd pain, diarrhea, and hematemesis, denies hematochezia/melena?? : Patient denies dysuria, urgency, frequency, hematuria Neurologic: Patient denies headache,??syncope, ataxia, change in bowel or bladder control Musculoskeletal: Patient reports back pain Hematologic/Lymphatic: Patient denies easy bleeding or bruising Psychiatric: Patient admits current anxiety,??denies depression Endocrine: Patient denies polyuria, polydypsia Integumentary: Patient admits hair loss, denies rash?? Objective Vital Signs?? Temperature: 98.8 DegF (08/16/23 18:33:00) Temperature Route: Oral (08/16/23 18:33:00) Pulse Rate:??105 bpm??High (08/16/23 18:33:00) Respiratory Rate: 18 br/min (08/16/23 18:33:00) Systolic Blood Pressure: 120 mm Hg (08/16/23 18:33:00) Diastolic Blood Pressure: 66 mm Hg (08/16/23 18:33:00) Blood pressure sites: Arm, left (08/16/23 18:33:00) Mean Arterial Pressure: 84 mm Hg (08/16/23 18:33:00) Pulse Pressure: 54 mm Hg (08/16/23 18:33:00) Oxygen Saturation: 100 % (08/16/23 18:33:00) Mode of Delivery (Oxygen): Room air (08/16/23 18:33:00) ? Physical Exam Constitutional: Alert, in no acute distress Head: Normocephalic, atraumatic Eyes: EOMI, no pallor or scleral icterus Ear, Nose and Throat: mucous membranes moist Neck: Supple, Full range of motion Respiratory: Clear to auscultation b/l without wheezes, rales or rhonchi. No use of accessory muscles Cardiovascular: Regular rate and rhythm, no rubs, murmurs or gallops. No JVD. Gastrointestinal: Abdomen soft, non-distended. Normal bowel sounds. Tenderness to RUQ, RLQ, LLQ, without rebound/guarding.?? Genitourinary: No costovertebral angle tenderness. No suprapubic tenderness?? Extremities: No lower extremity pitting edema. Distal pulses intact. Neurologic: AAOx3, Cranial nerves II-XII grossly intact. Moves all 4 extremities spontaneously.?? Skin: No rashes or lesions noted Musculoskeletal: No gross deformities on inspection. Normal range of motion and full strength 5/5 UE and LE Heme/Lymphatics: Palpation of neck reveals no swelling or tenderness of neck nodes.?? Psychiatric: Appropriate mood and affect?? 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 Diarrhea (R19.7):??. Nausea & vomiting (R11.2):??. Abdominal pain (R10.9):??The patient has had progressively worsening abdominal pain since her hospital discharge this summer. She also has had 9-10 episodes of diarrhea per day since . ?? -Contact isolation and test for c diff and GI profile -Patient states CT a week and a half ago showed diverticulitis. However, she was not given antibiotics. She has had multiple CT scans without significant findings. I have asked that the patient sign up for the portal and assess the CT scan reading, as she has given other inaccurate medical information upon my interview. However, given leukocytosis, tachycardia, and recent CT scan findings, low threshold for antibiotics with ceftriaxone/flagyl or PO vancomycin if c diff is positive. -Continue 2mg dilaudid q6h which was started in the ED for severe pain -Continue 4mg zofran q6h for nausea that was started in the ED,??requested EKG to check qtc -Add on magnesium and phosphorus level -NPO after midnight and consult GI (Dr. Roper) -Given elevated BUN: Cr ratio as well as elevated specific gravity, start D5 LR @125cc/h for 1L. Reassess in the am as she may be able to tolerate PO. ?? GERD with esophagitis (K21.00):??Patient with GERD, known esophagitis and known hiatal hernia with precancerous stomach findings per patient as well as an umbilical hernia. Patient's intermittent hematemesis with vomiting is likely nova alres tear and will monitor H&H ?? -Continue protonix 40mg twice daily and famotidine 20mg twice daily via IV -Monitor H&H ?? 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 Adrenal insufficiency (E27.40):??Patient follows with Dr. Cheng, who wants to taper hydrocortisoneby 1mg per dose per month. She received 100mg of hydrocortisone in the ED.??Patient takes 14mg of hydrocortisone in the am and 7mg in the pm. ?? Given tachycardia, leukocytosis, question of diverticulitis per CT scan in [place], and runningout of hydrocortisone at home, would continue with 100mg of hydrocortisone at this time given pressures in the low 100's and would monitor. Would consider changing back to home dose if pressures are stable in the am. ?? Chest pain HLD (hyperlipidemia) (E78.5):??Patient believes she has a history of several NM's. Exercise nuclearstress test from 2018 was normal. Lexiscan from 02/2020 showed possible prior LAD infarction, cardiac cath showed no coronary artery disease but significant right radial artery spasm. In 2022 cardiac cath showed normal coronary arteries. ?? -Troponin of 8 and 6, ruling out ACS. EKG is ordered but patient currently has no chest pain. -Continue with baby aspirin as she is not actively bleeding, 40mg of atorvastatin, and metoprolol ?? History of supraventricular tachycardia (Z86.79):??. Bradycardia (R00.1):??Patient is s/p dual chamber pacemaker ?? PTSD (post-traumatic stress disorder) (F43.10):??Patient takes Clonazepam, fluoxetine, bupropion and prazosin, recently had an appt with Brenda Cruz. Given NPO, have started Ativan 1mg q8h with continuation of fluoxetine, bupropion, and prazosin, asshe is feeling extra anxious at this time. ?? Asthma (J45.909):??Not in exacerbation. Continue monteleukast and albuterol PRN at this time. ?? History of HTN Spironolactone currently on hold. Continue metoprolol at this time. Will watch pressures and if stable overnight would restart in the am. ?? History of Constipation Patient takes senna, colace??and prucalopride. Given diarrhea these agents are on hold ?? VTE Prophylaxis:??Moderate, Lovenox?? Code Status:??FULL ?90 minutes spent gathering HPI, reviewing records including prior records, discussing assessment/plan with the patient ?? Histories Allergies Allergies ?(Active and Proposed Allergies [...] n/v ? Past Medical History/Problem List Active Problems??(28) Abdominal pain Adrenal insufficiency Arm DVT (deep venous thromboembolism), chronic Asthma Chest pain Chronic back pain Colitis Diarrhea Essential hypertension Functional overlay Gastroduodenitis Gastroesophageal reflux disease Hyperlipidemia with target LDL less than 100 Insufficiency, adrenal Allyssa's syndrome Mast cell disease MDD (major depressive disorder), recurrent episode, mild Narcotic dependence Normal coronary arteries Obese class I Ocular migraine Opioid dependence Pacemaker, Biotronik, inserted 10/29/14 Polypharmacy PTSD (post-traumatic stress disorder) PTSD (post-traumatic stress disorder) S/p REFUGIO-BSO SVT (supraventricular tachycardia) ? Past Surgical History Esophagogastroduodenoscopy: 12/10/20 Endoscopy: 01/04/20 Colonoscopy: 01/04/20 Upper GI endoscopy: 10/09/16 Endoscopic retrograde [...] Esophagogastric fundoplasty; with fundic patch (Thal-Jimena procedure) RIGHT OVARY REMOVED CYST ??LEFT OVARY Cone biopsy of cervix uteri NEC SVD1, TOP1 Tonsillectomy - Spontaneous vaginal delivery PART OF RIGHT TUBE REMOVED RIGHT ANKLE SURGERY Laparoscopy Appendectomy GALLBLADDER REMOVED ? Social History Alcohol Details:??Frequency: [...] Unknown Aunt: Aneurysm ? Medications Home Medications Albuterol (Albuterol (Eqv-ProAir HFA) 90 mcg/inh inhalation aerosol)?2?puff(s)?Inhalation?Every 6 hours Aspirin (Aspirin Low Dose 81 mg oral delayed release tablet)?1?tab(s)?By Mouth?Daily Atorvastatin (atorvastatin 40 mg oral tablet)?1?tab(s)?40?Milligram?By Mouth?Daily BuPROpion (Wellbutrin SR 100 mg/12 hours oral tablet, extended release)?1?tab(s)?100?Milligram?By Mouth?Daily?for 30?Days Cholecalciferol ((Vitamin D3) ??Cholecalciferol 400 MCFP units/mL oral syringe 1 mL)?10?Microgram?By Mouth?Daily Clonazepam (KlonoPIN 0.5 mg oral tablet)?1?tab(s)?0.5?Milligram?By Mouth?Daily?for 30?Days?midday Clonazepam (KlonoPIN 1 mg oral tablet)?1?tab(s)?1?Milligram?By Mouth?2 times a day?for 30?Days Cyclobenzaprine (cyclobenzaprine 5 mg oral tablet)?1?tab(s)?5?Milligram?By Mouth?2 times a day?as needed?Spasm Docusate (Colace sodium 100 mg oral capsule)?100?Milligram?1?capsule?By Mouth?2 times a day Durable Medical Equipment (Insulin Syringe, BD Ultra-Fine 1 cc 31 G x 8 mm (5/16in))?See Instructions?use twice daily with solucortef Durable Medical Equipment (3cc syring with 21 gu 1 needle)?See Instructions?use to reconstitute steroid twice daily Famotidine (famotidine 20 mg oral tablet)?20?Milligram?1?tablet?By Mouth?2 times a day Fluoxetine (PROzac 20 mg oral capsule)?40?Milligram?2?capsule?By Mouth?Daily?for 30?Days Fluticasone Nasal (Flonase 50 mcg/inh nasal spray)?2?spray(s)?Nares, Both?2 times a day?as needed?Congestion Gabapentin (gabapentin 300 mg oral capsule)?See Instructions?1 cap in the AM, 2 in the afternoon and 2 at bedtime HydroCORTisone (Solu-CORTEF Act-O-Vial 100 mg injection)?See Instructions?use daily SQ for adrenal insufficiency. 14 mg qam and 7 mg qpm please provide extra 2 mg vial for stress dosing. Lidocaine Topical (lidocaine 1.8% topical film)?1?patch(es)?Topically?Daily?leave onup to 12 hours Loratadine (loratadine 10 mg oral tablet)?10?Milligram?1?tablet?By Mouth?Daily Lorazepam (Ativan 1 mg oral tablet)?1?tab(s)?1?Milligram?By Mouth?3 times a day?as needed?for anxiety Melatonin?See Instructions Metoprolol (metoprolol 100 mg oral tablet)?100?Milligram?1?tablet?By Mouth?2 times a day?for 30?Days Montelukast (montelukast 10 mg oral tablet)?10?Milligram?1?tablet?By Mouth?Daily Ondansetron (ondansetron 4 mg oral tablet, disintegrating)?2?tab(s)?8?Milligram?By Mouth?Every 8 hours?as needed?Nausea & Vomiting?for 3?Days Pantoprazole (Protonix 40 mg oral delayed release tablet)?1?tab(s)?40?Milligram?By Mouth?2 times a day Prazosin (prazosin 2 mg oral capsule)?1?capsule?2?Milligram?By Mouth?Daily at bedtime?for 30?Days?if PO intake is low or BP low below 110/70 only take one cap prucalopride (prucalopride 2 mg oral tablet)?1?tab(s)?2?Milligram?By Mouth?Daily Senna?8.5?Milligram?By Mouth?2 times a day Spironolactone (spironolactone 25 mg oral tablet)?25?Milligram?1?tablet?By Mouth?Daily?for 30?Days ? Results Recent Labs BLOOD COUNT & DIFF WBC 12.3 k/mm3 (High)?? 08/16/2023 09:19 RBC 4.67 m/mm3 ()?? 08/16/2023 09:19 Hgb 13.9 Gm/dL ()?? 08/16/2023 09:19 Hct 41.9 % ()?? 08/16/2023 09:19 MCV 89.7 femtoliters ()?? 08/16/2023 09:19 MCH 29.8 pg ()?? 08/16/2023 09:19 MCHC 33.2 g/dL ()?? 08/16/2023 09:19 Platelet Count 364 k/mm3 ()?? 08/16/2023 09:19 RDW-SD 41.7 femtoliters ()?? 08/16/2023 09:19 MPV 10.4 femtoliters ()?? 08/16/2023 09:19 Nucleated RBC (Automated) 0.0 #/100 WBC'S ()?? 08/16/2023 09:19 Abs. NRBC 0.0 k/mm3 ()?? 08/16/2023 09:19 Abs. Neut 7.9 k/mm3 (High)?? 08/16/2023 09:19 Abs. Lymph 3.3 k/mm3 (High)?? 08/16/2023 09:19 Abs. [place] 0.8 k/mm3 ()?? 08/16/2023 09:19 Abs. Eo 0.2 k/mm3 ()?? 08/16/2023 09:19 Abs. Baso 0.1 k/mm3 ()?? 08/16/2023 09:19 Neut % 64.0 % ()?? 08/16/2023 09:19 Lymph % 27.1 % ()?? 08/16/2023 09:19 [place] % 6.4 % ()?? 08/16/2023 09:19 Eos % 1.4 % ()?? 08/16/2023 09:19 Baso % 0.5 % ()?? 08/16/2023 09:19 Imm Gran 0.6 % ()?? 08/16/2023 09:19 Abs. Imm Gran 0.1 k/mm3 ()?? 08/16/2023 09:19 ?? CARDIAC High Sensitivity Troponin (HSTnT) <6 ng/L ()?? 08/16/2023 11:49 ?? CHEM GENERAL Sodium 138 mmol/L ()?? 08/16/2023 09:19 Potassium 3.6 mmol/L ()?? 08/16/2023 09:19 Chloride 102 mmol/L ()?? 08/16/2023 09:19 Bicarbonate Level 22 mmol/L ()?? 08/16/2023 09:19 Anion Gap 14 ()?? 08/16/2023 09:19 Glucose Level 109 mg/dL (High)?? 08/16/2023 09:19 BUN 22 mg/dL (High)?? 08/16/2023 09:19 Creatinine-Blood 0.8 mg/dL ()?? 08/16/2023 09:19 Estimated GFR Creatinine 94 ML/MIN/1.73 M2 ()?? 08/16/2023 09:19 Calcium 9.6 mg/dL ()?? 08/16/2023 09:19 Magnesium 2.0 mg/dL ()?? 08/16/2023 09:19 Protein, Total 7.3 Gm/dL ()?? 08/16/2023 09:19 Albumin 4.4 Gm/dL ()?? 08/16/2023 09:19 AG Ratio 1.5 ()?? 08/16/2023 09:19 Alkaline Phosphatase 143 units/L (High)?? 08/16/2023 09:19 Lipase 17 units/L ()?? 08/16/2023 09:19 AST (SGOT) 14 units/L ()?? 08/16/2023 09:19 ALT (SGPT) 14 units/L ()?? 08/16/2023 09:19 Bilirubin, Total 0.3 mg/dL ()?? 08/16/2023 09:19 ?? HEME OTHER Hold Blue Top SPECIMEN DISCARDED AFTER 4 HOURS. ()?? 08/16/2023 09:19 ?? MISC. CHEMISTRY Hold Gel Top SPECIMEN DISCARDED AFTER 1 WEEK ()?? 08/16/2023 09:18 Hold [place] Top SPECIMEN DISCARDED AFTER 1 WEEK ()?? 08/16/2023 09:18 ?? URINE OTHER Est Creatinine Clearance 88.85 mL/min ()?? 08/16/2023 09:45 ? Hospital Progress note * Mimi Shah RN: PERFORM, SIGN, VERIFY Event Display: Progress Note Hospital Authored Date: [id number] Patient: MARY ALICE IBRAHIM Age: 42 years Sex: Female : 1980 Associated Diagnoses: None Author: Mimi Shah RN Findings pt awake and alert. offered no co this am. seen by and josé miguel for dc. given am, meds. midline d/c'd.pressure held for 5 minutes. circ 30, ext 0. given dc instructions. dc to home ambulatory at 0945 Discharge Information Case Management Discharge Plan : Case Management Discharge Plan Data 08/27/2023 9:46 EST Discharge Level of Care at Discharge Home/Jail/Foster Care * Shantell Pope RN: PERFORM, SIGN, VERIFY Event Display: Progress Note Hospital Authored Date: [id number] Patient: MARY ALICE IBRAHIM Age: 42 years Sex: Female : 1980 Associated Diagnoses: None Author: Shantell Pope RN Findings Problem Related to Alteration in Comfort : Alteration in Comfort/new 08/27/2023 2:00 EST Alteration in Comfort Related to Disease process, Other: Pain Goals & Outcomes: Comfort Pt will report acceptable level of comfort & pain control Interventions Implemented: Comfort Assess pain using appropriate pain scale/tools Goals/Interventions, Comfort Yes Comfort, Problem Start 08/23/2023 1:45 Reviewed plan with, Comfort Patient Patient Progression, Comfort Pt progressing according to plan Comfort, Problem Ongoing Yes . Alteration in Gastrointestinal : Alteration in Gastrointestinal Func/new 08/27/2023 2:00 EST Alteration in GI status Related to Other: nausea, diarrhea, abdominal pain Goals & Outcomes, Gastrointestinal Nutritional intake is adequate for metabolic needs, Pt will achieve normal/improved fluid balance, Pt will have a bowel movement prior to discharge, Pt will experience a decrease in diarrhea Interventions, Gastrointestinal Assess/monitor abdomen for distention, tenderness, Assess/monitor number of bowel movements, Assess/monitor pt for nausea, vomiting, Assess if pt tolerating diet BH Goals/Interventions, Gastrointestinal Yes Gastrointestinal, Problem Start 08/23/2023 1:45 Reviewed plan with, Gastrointestinal Patient Patient Progression, Gastrointestinal Pt progressing according to plan . Nursing Data Vital Signs : VITAL SIGNS SECTION 08/27/2023 1:02 EST Temperature 98.2 DegF Temperature Route Oral Pulse Rate 64 bpm Respiratory Rate 18 br/min Systolic Blood Pressure 126 mm Hg Diastolic Blood Pressure 97 mm Hg H Blood pressure sites Arm, right Mean Arterial Pressure 107 mm Hg Pulse Pressure 29 mm Hg Oxygen Saturation 97 % Mode of Delivery (Oxygen) Room air 08/26/2023 19:00 EST Temperature 98.1 DegF Temperature Route Oral Pulse Rate 61 bpm Respiratory Rate 20 br/min Systolic Blood Pressure 120 mm Hg Diastolic Blood Pressure 63 mm Hg Blood pressure sites Arm, right Pulse Pressure 57 mm Hg Mode of Delivery (Oxygen) Room air . Narrative/Incidental Patient alert and oriented, independent in room. Reports continued abdominal pain, nausea and vomiting. Despite abdominal discomfort and nausea, pt requesting many liquids this shift. Pt requesting pain Meds early in shift, only scheduled Neurontin for pain control at this time. Pt asleep after HS Meds given and did not require PRN Dilaudid until 1 AM ( med was available at 10pm) Pt also given upon request throat lozenge and Benadryl. Enhanced precautions maintained this shift. Pt maintaining sat on RA. Reglan not given Keyana Eb made aware pt states med as and allergy. Medication Dc'ed byPA. Please see Mar if pain medication required again this shift. Will continue to monitor and document any change in assessment. * Geetha Funes RN: PERFORM, SIGN, VERIFY, SIGN, MODIFY Event Display: Progress Note Hospital Authored Date: Patient: MARY ALICE IBRAHIM Age: 42 years Sex: Female : 1980 Associated Diagnoses: None Author: Geetha Funes RN Findings Narrative/Incidental Pt A&OX4. Care transferred from Svetlana Caban RN to this nurse. Pt ate an ice cream and then said she tried her food and was unable to tolerate it. . * Geetha Funes RN: PERFORM Event Display: Progress Note Hospital Authored Date: Keyana CHERRY notified pt wants oral Benedryl DT taking it at home. Note * Mimi Shah RN: PERFORM Event Display: Discharge/Transfer Note Hospital Authored Date: [id number] Nursing Discharge Note Entered On: 08/27/2023 9:47 EST Performed On: 08/27/2023 9:46 EST by Mimi Shah RN Nursing Discharge Note 2 Discharge Time : 08/27/2023 9:46 EST Discharge Level of Care at Discharge : Home/Jail/Foster Care Patient Left Unit Via : Ambulatory Patient Accompanied Off Unit with : Responsible adult DC Instructions Provided & Signed by Pt : Yes Patient Understands D/C Instructions : Yes Patient Instructions Discharge Signed : Yes Did Pt have Specialty Bed or Wound Vac : No Mimi Shah RN - 08/27/2023 9:46 EST * Deana Lala MD: PERFORM Event Display: Discharge/Transfer Note Hospital Authored Date: [id number] Patient: ??MARY ALICE IBRAHIM ? Age:??42 Years?Sex:??Female?:??1980?? 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 _ Discharge [...] Hydromorphone (Dilaudid 2 mg oral tablet)?2?Milligram?By Mouth?Every 6 hours?as needed?Pain , Severe Lorazepam (Ativan 1 mg oral tablet)?1?tab(s)?1?Milligram?By Mouth?3 times a day?as needed?for anxiety Metoprolol (metoprolol 100 mg oral tablet)?100?Milligram?1?tablet?By Mouth?2 times a day?for 30?Days Montelukast (montelukast 10 mg oral tablet)?10?Milligram?1?tablet?By Mouth?Daily in PM Ondansetron (ondansetron 4 mg oral tablet, disintegrating)?2?tab(s)?8?Milligram?By Mouth?Every 8 hours?as needed?Nausea & Vomiting?for 3?Days Pantoprazole (Protonix 40 mg oral delayed release tablet)?40?Milligram?By Mouth?2 timesa day Potassium Chloride (potassium chloride 10 mEq oral tablet, extended release)?2?tab(s)?20?Milliequivalent?By Mouth?Daily?for 7?Days Prazosin (prazosin 2 mg oral capsule)?1?capsule?2?Milligram?By Mouth?Daily at bedtime?for 30?Days?if PO intake is low or BP low below 110/70 only take one cap Spironolactone (spironolactone 25 mg oral tablet)?25?Milligram?1?tablet?By Mouth?Daily?for 30?Days ? Medications Started Tablet diluted??2 mg every 6 as needed for pain. Protonix 40 mg twice daily. Potassium chloride??20 mEq daily for 7 days Medications Discontinued None. Doses Changed None. Allergies Allergies ?(Active and [...] Unknown) ?Reactions: n/v ? Future Appointments Wednesday 9:20 AM EST ?? Where: [facility] Status: Pending Wednesday 2:00 PM EST ?? With: Agustín East MD Where: [facility] [address] [place] [address] Drive [address] [place] [address]- Status: Pending Wednesday 2:30 PM EST ?? With: Brenda Galeano Where: [facility] [address] [place] [address]- Status: Pending Hospital Course ??42 years old female with multiple medical issues including lupus, mast cell disease, multiple abdominal surgery, PTSD, esophagitis, adrenal insufficiency, chronic abdominal pain nausea vomiting without clear etiology. Patient is hospitalized for acute worsening abdominal pain, nausea vomiting ?? Nausea & vomiting (R11.2): . Abdominal pain (R10.9): ??The etiology of her symptoms is not entirely clear. Her overall abdominal exam is not particularly concerning though she could potentially be developing an ileus or obstruction given her multiple prior surgeries, reduced stool output, lack of flatus. She does have history of chronic constipation and had moderate stool burden on a CT scan a month prior. Patient underwent EGD/colonoscopy??on 08/23/23,??showing only gastritis. Overall improved. Limited small bowel series shows no evidence of obstruction. Discontinued IV pain medication. ??Started on PO PPI and Po dilaudid. Advance to low fiber diet. Tolerating diet well. Protonix 40 mg twice daily. ?? Persistent hypokalemia: As per patient??she was diagnosed with Allyssa syndrome in 2020 in [facility]??when she was admitted there for 2 months. She is supposed to see a international coordinator outpatient??however??never make an appointment so far. Will discharge the patient on??KCl??20 mEq??daily for 7 days followed by??outpatient follow-up withPCP. ? Secondary Adrenal insufficiency (E27.40): She takes 14 mg of hydrocortisone each morning and 7 mg in the evening. ?? COVID-19: no respiratory symptoms. Tested positive on 08/23/2023. Supportive care for now. Patient was counseled for isolation??for total 10 days. ? Asthma (J45.909): Breathing comfortably and lungs clear. Albuterol as needed ? Pacemaker, Biotronik, inserted 10/29/14 (Z95.0): . History of supraventricular tachycardia (Z86.79): Continue metoprolol ? Essential hypertension (I10): Continue metoprolol. Resume spironolactone. 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 Objective Measurements?? Height: 170 cm (08/27/23) Weight: 99 kg (08/23/23) Dry Weight: 99 kg (08/18/23) Body Mass Index:??34.26 kg/m2??Critical (08/23/23) ? Vital Signs?? Temperature: 98.2 DegF (08/27/23 07:32:00) Temperature Route: Oral (08/27/23 07:32:00) Pulse Rate: 67 bpm (08/27/23 07:32:00) Respiratory Rate: 18 br/min (08/27/23 07:32:00) Systolic Blood Pressure: 110 mm Hg (08/27/23 07:32:00) Diastolic Blood Pressure: 83 mm Hg (08/27/23 07:32:00) Blood pressure sites: Arm, right (08/27/23 07:32:00) Mean Arterial Pressure: 92 mm Hg (08/27/23 07:32:00) Pulse Pressure: 27 mm Hg (08/27/23 07:32:00) Oxygen Saturation: 99 % (08/27/23 07:32:00) Mode of Delivery (Oxygen): Room air (08/27/23 07:32:00) Early Warning Score: 0 (08/27/23 07:33:29) ? . Physical Exam ?? General: Lying comfortably in bed,no evident distress Cardiac: S1 + S2 + 0, no murmurs heard Respiratory: CTA, No wheezes, Rales or crackles heard Abdomen: soft, nondistended, nontender Extremities: No edema or cyanosis present Neurological: AO X3,cranial nerves grossly normal? Surgical Procedures Colonoscopy/Gastroscopy (EGD) 08/23/2023 13:19 Pending Results Add On Lab Order ordered on 08/22/2023 XR Upper GI W/O KUB ordered on 08/18/2023 Patient Education Titles COVID-19: Caring for Yourself or Others?? Coronavirus Disease 2019 (COVID-19): Overview?? COVID-19: Caring for Yourself or Others?? Vomiting (Adult)?? Unknown Causes of Abdominal Pain(Adult)?? Follow-Up Appointments Added Follow Up ?Time Frame ?Comments Dash WILCOX (OR) , Paola Anderson Patient Instructions Your electrolytes are normal. ??Please continue your current medications and contact your mass spectrometry specialist to arrange for??more rapid follow-up within has been arranged. Post Discharge Care Discharge ?Prescription sent to [facility] 08/27/23 8:51:00 EST Home Health Face to Face ^[facility] Results Discharge Labs BLOOD COUNT & DIFF WBC 4.3 k/mm3 ()?? 08/26/2023 05:10 RBC 3.86 m/mm3 (Low)?? 08/26/2023 05:10 Hgb 11.6 Gm/dL (Low)?? 08/26/2023 05:10 Hct 36.6 % ()?? 08/26/2023 05:10 MCV 94.8 femtoliters ()?? 08/26/2023 05:10 MCH 30.1 pg ()?? 08/26/2023 05:10 MCHC 31.7 g/dL (Low)?? 08/26/2023 05:10 Platelet Count 217 k/mm3 ()?? 08/26/2023 05:10 RDW-SD 45.2 femtoliters ()?? 08/26/2023 05:10 MPV 11.0 femtoliters ()?? 08/26/2023 05:10 Nucleated RBC (Automated) 0.0 #/100 WBC'S ()?? 08/26/2023 05:10 Abs. NRBC 0.0 k/mm3 ()?? 08/26/2023 05:10 Abs. Neut 7.9 k/mm3 (High)?? 08/16/2023 09:19 Abs. Lymph 3.3 k/mm3 (High)?? 08/16/2023 09:19 Abs. [place] 0.8 k/mm3 ()?? 08/16/2023 09:19 Abs. Eo 0.2 k/mm3 ()?? 08/16/2023 09:19 Abs. Baso 0.1 k/mm3 ()?? 08/16/2023 09:19 Neut % 64.0 % ()?? 08/16/2023 09:19 Lymph % 27.1 % ()?? 08/16/2023 09:19 [place] % 6.4 % ()?? 08/16/2023 09:19 Eos % 1.4 % ()?? 08/16/2023 09:19 Baso % 0.5 % ()?? 08/16/2023 09:19 Imm Gran 0.6 % ()?? 08/16/2023 09:19 Abs. Imm Gran 0.1 k/mm3 ()?? 08/16/2023 09:19 ?? CARDIAC High Sensitivity Troponin (HSTnT) <6 ng/L ()?? 08/16/2023 11:49 ? CHEM GENERAL Sodium 141 mmol/L ()?? 08/27/2023 06:25 Potassium 3.4 mmol/L (Low)?? 08/27/2023 06:25 Chloride 108 mmol/L (High)?? 08/27/2023 06:25 Bicarbonate Level 22 mmol/L ()?? 08/27/2023 06:25 Anion Gap 11 ()?? 08/27/2023 06:25 Glucose Level 89 mg/dL ()?? 08/27/2023 06:25 Hemoglobin A1C (Monitoring) 5.4 % ()?? 08/21/2023 10:50 BUN 7 mg/dL ()?? 08/27/2023 06:25 Creatinine-Blood 0.8 mg/dL ()?? 08/27/2023 06:25 Estimated GFR Creatinine 94 ML/MIN/1.73 M2 ()?? 08/27/2023 06:25 Calcium 8.4 mg/dL (Low)?? 08/25/2023 09:17 Phosphorus 4.2 mg/dL ()?? 08/19/2023 06:13 Magnesium 2.1 mg/dL ()?? 08/27/2023 06:25 Protein, Total 6.0 Gm/dL (Low)?? 08/18/2023 05:56 Albumin 3.7 Gm/dL ()?? 08/18/2023 05:56 AG Ratio 1.6 ()?? 08/18/2023 05:56 Alkaline Phosphatase 115 units/L (High)?? 08/18/2023 05:56 Lipase 17 units/L ()?? 08/16/2023 09:19 AST (SGOT) 14 units/L ()?? 08/18/2023 05:56 ALT (SGPT) 10 units/L ()?? 08/18/2023 05:56 Bilirubin, Total 0.5 mg/dL ()?? 08/18/2023 05:56 ? HEME OTHER Hold Lavender Top SPECIMEN DISCARDED AFTER 24 HOURS. ()?? 08/27/2023 06:25 Hold Blue Top SPECIMEN DISCARDED AFTER 4 HOURS. ()?? 08/25/2023 09:17 ?? MISC. CHEMISTRY Hold Gel Top SPECIMEN DISCARDED AFTER 1 WEEK ()?? 08/25/2023 09:17 Hold Jefferson Top SPECIMEN DISCARDED AFTER 1 WEEK ()?? 08/17/2023 13:21 ?? UA/URINALYSIS Appear/Color, Urine YELLOW ()?? 08/19/2023 02:44 Clarity CLEAR ()?? 08/19/2023 02:44 Specific [place], Urine 1.020 ()?? 08/19/2023 02:44 pH, Urine 5.5 ()?? 08/19/2023 02:44 Albumin, Urine NEGATIVE ()?? 08/19/2023 02:44 Glucose, Urine NEGATIVE ()?? 08/19/2023 02:44 Ketones, Urine 1+ (Abnormal)?? 08/19/2023 02:44 Bilirubin, Urine NEGATIVE ()?? 08/19/2023 02:44 Hemoglobin, Urine NEGATIVE ()?? 08/19/2023 02:44 Nitrite, Urine NEGATIVE ()?? 08/19/2023 02:44 Leukocyte, Urine NEGATIVE ()?? 08/19/2023 02:44 Urobilinogen NORMAL mg/dL ()?? 08/19/2023 02:44 Hold Urine Culture Testing available 48 hours from time of collection. ()?? 08/19/2023 02:44 ? URINE OTHER Est Creatinine Clearance 88.85 mL/min ()?? 08/27/2023 07:17 ? VIROLOGY Influenza A PCR NEGATIVE ()?? 08/23/2023 16:55 Influenza B PCR NEGATIVE ()?? 08/23/2023 16:55 RSV PCR NEGATIVE ()?? 08/23/2023 16:55 COVID-19 PCR Specimen Source NASAL ()?? 08/23/2023 16:55 COVID-19 PCR Result POSITIVE (Abnormal)?? 08/23/2023 16:55 ? 35_ minutes spent on discharge * Alyssa THOMPSON, Mimi D: PERFORM Event Display: Patient Education/Instruction Authored Date: [id number] Inpatient Adult Discharge Instructions [address] [address] Name: MARY ALICE IBRAHIM : 1980 Visit: 08/17/2023 12:51:00 Current Date: 08/27/2023 09:09 Account: [id number] Inpatient Adult Discharge Instructions We would like [...] and their families. Surveys are administered by [employer] ?? If further treatment with your primary care physician or another doctor is recommended, it is important for you to keep the appointment. Call your primary care physician or return to the Emergency Department immediately if your condition worsens, fails to improve, or new symptoms develop. If you need to find a doctor, you can call [email or web address] for a referral at [phone] or toll free at [phone]) or log in to [email or web address].. ?? [facility], in keeping with [facility] guidance, no longer requires face masks [...] a health care harman of your choosing. My Best Interest is a website that allows you to securely view your medical information including your hospital discharge summary, office visit summaries, medications and follow-up visits. You can also request appointments, renew medications, and request access to your medical information using a health care harman of your choosing, or just ask a question. You can enroll at [email or web address] or register during your next office visit. You have been discharged from [facility], Patient Care Unit: Med Surg. If you have any questions regarding these instructions after you leave, please call us and we will be happy to assist you. [facility] Your Care Team Attending Physician Deana Lala MD Consulting Providers Joaquin Garnett DO, MD, Jorge Discharging Providers Deana Lala MD Reason for Admission N/V/D for 3 days, reports some cp for 3 days Your Diagnosis Adrenal insufficiency Abdominal pain Nausea & vomiting Diarrhea GERD with esophagitis History of supraventricular tachycardia Bradycardia PTSD (post-traumatic stress disorder) Asthma Mast cell disease Obesity, Class I, BMI 30.0-34.9 (see actual BMI) Pacemaker, Biotronik, inserted 10/29/14 Hyperlipidemia with target LDL less than 100 Essential hypertension COVID-19 Tests Performed Below is a partial list of the tests performed during your hospitalization. You may have had other tests and procedures not included in this list. Please discuss all test results with your provider. Basic Metabolic Panel BUN Calcium Level CBC CBC w/ Differential Comprehensive Metabolic Panel COVID-19, RSV, and Flu A/B, Rapid PCR Creatinine Electrolytes Glucose Level HEMOGLOBIN A1C High??Sensitivity??Troponin T HOLD BLUE TUBE HOLD GEL TUBE HOLD JEFFERSON TUBE HOLD LAVENDER TUBE Lipase Magnesium Level Phosphorus Level Urinalysis w/hold for Urine Culture KUB UGI W/O KUB?-- Results Pending -- XR KUB or Abdomen XR Small Bowel Series You will be contacted within 72 hours with your results. Primary Care Provider Dash WILCOX (OR) [place] Advance Directive Health Care Proxy on File Yes - Health Care Proxy Discharge Vitals Temperature: 98.2 DegF Height: 170 cm Pulse Rate: 67 bpm Weight: 99 kg Respiratory Rate: 18 br/min Body Mass Index:??34.26 kg/m2??Critical Systolic Blood Pressure: 110 mm Hg Body surface area: 2.16 Diastolic Blood Pressure: 83 mm Hg ?? Oxygen Saturation: 99 % ?? Studies Pending All tests and labs ordered during this hospital stay have been completed unless listed below. Please discuss all pending results with your provider listed above in these instructions. ?? Add On Lab Order Upper GI W/O KUB (UGI W/O KUB) What to do next Instructions From Your Doctor Your electrolytes are normal. ??Please continue your current medications and contact your mass spectrometry specialist to arrange for??more rapid follow-up within has been arranged. Discharge Orders Scheduled Follow-Up Appointments Wednesday 9:20 AM EST ?? Where: [facility] Status: Pending Wednesday 2:00 PM EST ?? With: Cruzito WILCOX, Agustín Joaquin Where: [address] [place] [address]- Status: Pending Wednesday 2:30 PM EST ?? With: Brenda Galeano Where: [facility] [address] [place] [address]- Status: Pending You Need to Schedule the Following Appointments Follow Up with??Dash WILCOX (OR) Paola Where: [address] [place] [phone] Discharge Medications MARY ALICE IBRAHIM :1980 Visit Date:08/17/2023 Medications: Please continue your medications until treatment is completed or stopped by your provider. Medications not listed below should be discontinued. Discuss any questions related to medications with your provider. What How Much When Why Instructions Next Dose New Hydromorphone (Dilaudid 2 mg oral tablet) 2 Milligram Oral Every 6 hours as needed for Pain , Severe Pickup at [facility] [employer] [facility] #[id number] as directed New Potassium Chloride (potassium chloride 10 mEq oral tablet, extended release) 2 tab(s) Oral Daily Duration: 7 Days Pickup at [facility] [employer] [facility] #[id number] 08/28 am Changed Aspirin (Aspirin Enteric Coated 81 mg oral delayed release tablet) 1 tab(s) Oral Daily 08/28 am Changed Atorvastatin (atorvastatin 40 mg oral tablet) 1 tab(s) Oral Daily 08/28 am Changed Clonazepam (KlonoPIN 1 mg oral tablet) 1 tab(s) Oral Twice a day Duration: 30 Days 08/27 pm Changed Fluoxetine (FLUoxetine 20 mg oral capsule) 2 capsule Oral Daily 08/28 am Changed Gabapentin (gabapentin 300 mg oral capsule) 1 capsule Oral Twice a day 08/27 pm Changed Montelukast (montelukast 10 mg oral tablet) 1 tab(s) Oral Daily in PM 08/27 pm Changed Pantoprazole (Protonix 40 mg oral delayed release tablet) 40 Milligram Oral Twice a day Pickup at [facility] [employer] [facility] #[id number] 08/27 pm Unchanged BuPROpion (Wellbutrin SR 100 mg/ 12 hours oral tablet, extended release) 1 tab(s) Oral Daily Duration: 30 Days 08/28 am Unchanged Cromolyn (cromolyn 20 mg/ mL oral solution) 10 Milliliter Oral 4 times a day 30 minutes before meals and at bedtime ?? as directed Unchanged HydroCORTisone (Solu-CORTEF Act-O-Vial 100 mg injection) See instructions use daily SQ for adrenal insufficiency. 14 mg qam and 7 mg qpm please provide extra 2 mg vial for stress dosing. ?? as directed Unchanged Lorazepam (Ativan 1 mg oral tablet) 1 tab(s) Oral 3 times a day as needed for for anxiety as directed Unchanged Metoprolol (metoprolol 100 mg oral tablet) 1 tab(s) Oral Twice a day Duration: 30 Days 08/27 pm Unchanged Ondansetron (ondansetron 4 mg oral tablet, disintegrating) 2 tab(s) Oral Every 8 hours as needed for Nausea & Vomiting Duration: 3 Days as directed Unchanged Prazosin (prazosin 2 mg oral capsule) 1 capsule Oral Daily at Bedtime Duration: 30 Days if PO intake is low or BP low below 110/ 70 only take one cap ?? 08/27 pm Unchanged Spironolactone (spironolactone 25 mg oral tablet) 1 tab(s) Oral Daily Syncope Duration: 30 Days 12/9 am Pharmacy Information [facility] #[id number]: [address], [place] [id number] [phone] ?? What How Much When Comments Stop Taking Cholecalciferol ((Vitamin D3) Cholecalciferol 400 MCFP units/ mL oral syringe 1 mL) 10 Microgram Oral Daily Stop Taking Cyclobenzaprine (cyclobenzaprine 5 mg oral tablet) 1 tab(s) Oral Twice a day as needed for Spasm Stop Taking Docusate (Colace sodium 100 mg oral capsule) 1 capsule Oral Twice a day Stop Taking Lidocaine Topical (lidocaine 1.8% topical film) 1 patch(es) Topically Daily leave on up to 12 hours ?? Stop Taking Loratadine (loratadine 10 mg oral tablet) 1 tab(s) Oral Daily Stop Taking Melatonin See instructions Stop Taking prucalopride (prucalopride 2 mg oral tablet) 1 tab(s) Oral Daily Stop Taking Senna 8.5 Milligram Oral Twice a day Test Results Below is a partial list of the most recent Laboratory test results done prior to this discharge. You may have had other tests and procedures not included in this list. Please discuss all test resultswith your provider. Est Creatinine Clearance - 88.85 mL/min (08/27/2023) [id number] (08/23/2023) ? ?Surgical Pathology - Patient Name: MARY ALICE IBRAHIM
Lab
Patient : 1980 (Age: 42)
Collection Date: 08/23/2023
Accession Date: 08/23/2023
Sign Out Date: 08/24/2023

<br/&g t;Tissue Source:
1:SMALL BOWEL BIOPSY
2:RANDOM GASTRIC BIOPSY
3:RANODM COLON BIOPSY
4:RANDOM RECAL BIOPSY

Final Diagnosis:
1. Small bowel, biopsy:
- Duodenal mucosa with no significant diagnostic alterations(villous architecture preserved).&shy;

2. Stomach, random, biopsies:
- Gastric antral mucosa with mild reactive gastropathy and focal intestinal metaplasia.
- Gastric oxyntic mucosa with proton pump inhibitor (PPI) effect.
- No morphologic evidence of Helicobacter pylori micro-organisms.

3. Colon, random, biopsies:<br/& gt;- Colonic mucosa with no significant diagnostic alterations.

4. Rectum, biopsy:
- Colonic mucosa with no significant diagnostic alterations.

Primary Pathologist:David Saez MD
electronically signed out by: David Saez MD / Monica

Clinical History:
Abdominal pain/nausea vomiting

Gross Description:
Part 1. Labeled small bowel . Received in formalin are six soft maldonado tissues ranging in size from 0.6 x 0.3 x 0.1 cm to 0.3 x 0.1 x 0.1 cm. The specimens are entirely submitted.
1- 6 pieces, x2, EOE. (EG)*
Part 2. Labeled random gastric . Received in formalin are five soft maldonado tissues ranging in size from 0.7 x 0.2 x 0.1 cm to 0.3 x 0.3 x 0.1 cm. The specimens are entirely submitted.
1-5 pieces, x2, EOE. (EG)*
Part 3. Labeled random colon . Received in formalin are four soft maldonado, red tissues ranging in size from 1.1 x 0.3 x 0.1 cm to 0.6 x 0.3 x 0.1 cm. The specimens are entirely submitted.
1-4 pieces, x2, EOE. (EG)*
Part 4. Labeled random rectum . Received in formalin are four soft maldonado, red tissues ranging in size from 0.6 x 0.4 x 0.1 cm to 0.2 x 0.2 x 0.1cm. The specimens are entirely submitted.
1-4 pieces, x2, EOE. (EG)*

Phone #: [phone], On-Call Pathologist: [id number] Basic Metabolic Panel (08/25/2023) ???Sodium - 140 mmol/L???Potassium - 3.2 mmol/L???Chloride - 106 mmol/L???Bicarbonate Level - 25 mmol/L???Anion Gap - 9???Glucose Level - 83 mg/dL???BUN - 6 mg/dL???Creatinine-Blood - 0.9 mg/dL???Estimated GFR Creatinine - 82 ML/MIN/1.73 M2???Calcium - 8.4 mg/dL BUN (08/27/2023) ???BUN - 7 mg/dL Calcium Level (08/19/2023) ???Calcium - 8.7 mg/dL CBC (08/26/2023) ???WBC - 4.3 k/mm3???RBC - 3.86 m/mm3???Hgb - 11.6 Gm/dL???Hct - 36.6 %???MCV - 94.8 femtoliters???MCH - 30.1 pg???MCHC - 31.7 g/dL???Platelet Count - 217 k/mm3???RDW-SD - 45.2 femtoliters???MPV - 11.0 femtoliters???Nucleated RBC (Automated) - 0.0 #/100 WBC'S???Abs. NRBC - 0.0 k/mm3 CBC w/ Differential (08/16/2023) ???WBC - 12.3 k/mm3???RBC - 4.67 m/mm3???Hgb - 13.9 Gm/dL???Hct - 41.9 %???MCV - 89.7 femtoliters???MCH - 29.8 pg???MCHC - 33.2 g/dL???Platelet Count - 364 k/mm3???RDW-SD - 41.7 femtoliters???MPV - 10.4 femtoliters???Nucleated RBC (Automated) - 0.0 #/100 WBC'S???Abs. NRBC - 0.0 k/mm3???Abs. Neut - 7.9 k/mm3???Abs. Lymph - 3.3 k/mm3???Abs. [place] - 0.8 k/mm3???Abs. Eo - 0.2 k/mm3???Abs. Baso - 0.1 k/mm3???Neut % - 64.0 %???Lymph % - 27.1 %???[place] % - 6.4 %???Eos % - 1.4 %???Baso % - 0.5 %???Imm Gran - 0.6 %???Abs. Imm Gran - 0.1 k/mm3 Comprehensive Metabolic Panel (08/18/2023) ???Sodium - 146 mmol/L???Potassium - 3.8 mmol/L???Chloride - 114 mmol/L???Bicarbonate Level - 21 mmol/L???Anion Gap - 11???Glucose Level - 86 mg/dL???BUN - 12 mg/dL???Creatinine-Blood - 0.8 mg/dL???Estimated GFR Creatinine - 94 ML/MIN/1.73 M2???Calcium - 8.8 mg/dL???Protein, Total - 6.0 Gm/dL???Albumin - 3.7 Gm/dL???AG Ratio - 1.6???Alkaline Phosphatase - 115 units/L???AST (SGOT) - 14 units/L???ALT (SGPT) - 10 units/L???Bilirubin, Total - 0.5 mg/dL COVID-19, RSV, and Flu A/B, Rapid PCR (08/23/2023) ???Influenza A PCR - NEGATIVE???Influenza B PCR - NEGATIVE???RSV PCR - NEGATIVE???COVID-19 PCR Specimen Source - NASAL???COVID-19 PCR Result - POSITIVE Creatinine (08/27/2023) ???Creatinine-Blood - 0.8 mg/dL???Estimated GFR Creatinine - 94 ML/MIN/1.73 M2 Electrolytes (08/27/2023) ???Sodium - 141 mmol/L???Potassium - 3.4 mmol/L???Chloride - 108 mmol/L???Bicarbonate Level - 22 mmol/L???Anion Gap - 11 Glucose Level (08/27/2023) ???Glucose Level - 89 mg/dL HEMOGLOBIN A1C (08/21/2023) ???Hemoglobin A1C (Monitoring) - 5.4 % High??Sensitivity??Troponin T (08/16/2023) ? ?High Sensitivity Troponin (HSTnT) - <6 ng/L HOLD BLUE TUBE (08/25/2023) ???Hold Blue Top - SPECIMEN DISCARDED AFTER 4 HOURS. HOLD GEL TUBE (08/25/2023) ???Hold Gel Top - SPECIMEN DISCARDED AFTER 1 WEEK HOLD JEFFERSON TUBE (08/17/2023) ???Hold Jefferson Top - SPECIMEN DISCARDED AFTER 1 WEEK HOLD LAVENDER TUBE (08/27/2023) ???Hold Lavender Top - SPECIMEN DISCARDED AFTER 24 HOURS. Lipase (08/16/2023) ???Lipase - 17 units/L Magnesium Level (08/27/2023) ???Magnesium - 2.1 mg/dL Phosphorus Level (08/19/2023) ???Phosphorus - 4.2 mg/dL Urinalysis w/hold for Urine Culture (08/19/2023) ???Appear/Color, Urine - YELLOW???Clarity - CLEAR???Specific [place], Urine - 1.020???pH, Urine - 5.5???Albumin, Urine - NEGATIVE???Glucose, Urine - NEGATIVE???Ketones, Urine - 1+???Bilirubin, Urine - NEGATIVE???Hemoglobin, Urine - NEGATIVE???Nitrite, Urine - NEGATIVE???Leukocyte, Urine - NEGATIVE?? ?Urobilinogen - NORMAL???Hold Urine Culture - Testing available 48 hours from time of collection. Allergies (NKA means No Known Allergies) Cefzil??(Hives) Compazine??(severe anxiety, Hives) Haldol Inderal??(n/v,tachcardia) Lexapro??(n/v) Nardil??(Palpitations - rapid, N&V - Nausea and vomiting, C/O - a headache) Reglan??(severe anxiety~panic) Xarelto??(rash) Zoloft??(tachycardia, n/v) droperidol-fentanyl propranolol??(Rash) Problems Active Problems??(23) Abdominal pain?? Adrenal insufficiency?? Asthma?? Chest pain?? Chronic back pain?? COVID-19?? Essential hypertension?? Functional overlay?? Gastroesophageal reflux disease?? Hyperlipidemia with target LDL less than 100?? 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 Narcotic dependence?? Normal coronary arteries?? Obese class I?? Ocular migraine?? Opioid dependence?? Pacemaker, Biotronik, inserted 10/29/14?? Polypharmacy?? PTSD (post-traumatic stress disorder)?? PTSD (post-traumatic stress disorder)?? S/p REFUGIO-BSO?? SVT (supraventricular tachycardia)?? Education Materials Below is the list of Educational Leaflet Providered with your Discharge Instructions. COVID-19: Caring for Yourself or Others?? Coronavirus Disease 2019 (COVID-19): Overview?? COVID-19: Caring for Yourself or Others?? Vomiting (Adult)?? Unknown Causes of Abdominal Pain(Adult)?? Valuables and Belongings I fully understand and agree that [facility] accepts no responsibility for all my personal [...] patient Date for Pt to Sign Valuables/Belongings: 08/25/23 16:19:00 ?? Other Discharge Information ? Pulmonary Rehab Status?? Pulmonary Rehab Discharge Status?? Respiratory Rate: 18 br/min ? Common Emergency Awareness Tips IS [...] are strongly encouraged to quit. Please call [facility] [facility] at [phone] or [phone] ([phone]) or log in to [email or web address] for referrals to smoking cessation programs. ?? 757 Suicide & Crisis Lifeline is available 12/04 if you or someone you know needs to find a reason to keep living. By calling 263 you'll be connected to a skilled, trained counselor at a crisis center in your area. INPATIENT DISCHARGE INSTRUCTIONS SIGNATURE PAGE MARY ALICE IBRAHIM Location:[facility] Registration Date and Time:08/17/2023 12:51 EST Primary Care Physician: Dash WILCOX (OR) , [place]ola Anderson, Attending Physician: Spike WILCOX, Deana, I MARY ALICE IBRAHIM, have received the above patient education materials/instructions and have verbalized understanding. If ambulance or transport services are being used I further acknowledge being given a choice of service. ?? If you need to contact me, please call me at this number: . Patient/Jigger Crown Pouncing Machine Operator Name: Patient/Jigger Crown Pouncing Machine Operator Signature: Relationship to Patient: Witness Name/Signature: Date: * Deana Lala MD: PERFORM Event Display: Patient Education Leaflets Authored Date: [id number] COVID-19: Caring for Yourself or Others ?? [id number] COVID-19: Caring for Yourself or Others If you or a household member test positive for COVID-19 or have symptoms like fever, cough, fatigue, loss of taste or smell, follow these guidelines for preventing spread of the virus and managing symptoms. This is regardless of your vaccination status. If you have symptoms or have been diagnosed with COVID-19 If you have symptoms of COVID-19 or you test positive (even without symptoms): ??? Stay home at least 5 days and isolate in your home. Separate from others as much as possible. You are most likely infectious during these first 5 days. Day 0 is the first day you tested or first had symptoms. Day 1 is the first full day after your symptoms started or following your positive test. See the CDC's website for current, detailed information about staying home. Follow your local area's instructions on testing and staying home. ??? Stay away from work, school, and public places. Limit physical contact with family members. Limit visitors. Don't kiss anyone or share eating or drinking utensils. Clean surfaces you touch with disinfectant. This is to help prevent the virus from spreading. ??? Wear a high quality, well-fitting mask if you must be around others at home or in public. Don't go places where you are unable to wear a mask. ??? Don't travel. ??? Tell the healthcare staff about recent travel. This includes local travel on public transport. Staff may need to find otherpeople you have been in contact with. ??? Take steps to improve airflow at home. For example, open w indows to improve airflow, change filters in your air conditioning unit, and turn your thermostat to on instead of auto to improve airflow and filtration. For more tips, see the CDC website. ??? Don't share personal items such as eating or drinking utensils and linens or food. ??? If you need to cough or sneeze, do it into a tissue. Then throw the tissue into the trash. If you don't have tissues, cough or sneeze into the bend of your elbow. ??? Wash your hands often. ??? Follow all instructions from your healthcare provider. Call your healthcare provider???s office before going. They can prepare and give you instructions. This will help prevent the virus from spreading. ??? If you need t o go to a hospital or clinic, expect that the healthcare staff will wear protective equipment such as masks, gowns, gloves, and eye protection. You may be advised to wait in or enter through a separate area. This is to prevent the possible virus from spreading. ??? Follow all instructions the healthcare staff gives you. ? Self-care at home?? Protection You can protect yourself and others from getting COVID-19 or from getting very sick if you get it: ??? Vaccinate. Several vaccines and booster shots are available to prevent COVID-19 or reduce its severity. These vaccines reduce how severe the illness will be if you get the virus. No vaccine is ever 100% effective in preventing any illness, but the COVID-19 vaccines work well and are safe. Vaccines are available for people as young as 6 months and boosters are available for people age 5 and older. Expert groups, including ACOG and CDC, advise or people to be vaccinated. Talk with your healthcare provider about which COVID-19 vaccine is best for you and your family. ??? Practice good handwashing. ??? Know your area's community transmission level and what to do if you've been exposed. Stay home if you have suspected or confirmed COVID-19. ??? Keep your distance when possible from a person who is sick or has tested positive for COVID-19. ??? Get tested if needed. ??? Wear a well-fitted mask as advised. See the CDC's mask website. ??? Improve airflow indoors and move indoor activities outside. ??? Call your healthcare provider for treatment if you have COVID-19and are at high risk of getting very sick. ?? Treatment Current treatment is mainly aimed at helping your body while it fights the virus. This is known as supportive care. If you have confirmed COVID-19, talk with your healthcare provider. You may qualifyfor certain medicines approved by the FDA to prevent severe COVID-19 infection. For severe COVID-19, you may need to stay in the hospital. Most people with COVID-19 recover with supportive care. This includes: ??? Getting rest. This helps your body fight the illness. ??? Staying hydrated. Drinking liquids isthe best way to prevent dehydration. Try to drink 6 to 8 glasses of liquids every day, or as advised by your provider. Also check with your provider about which fluids are best for you. Don't drink fluids that contain caffeine or alcohol. ??? Taking evxn-xer-tzjimdt (OTC) pain medicine. These are used to help ease pain and reduce fever. Follow your healthcare provider's instructions for which OTCmedicine to use. If you've been treated for suspected or confirmed COVID-19, follow all of your healthcare team's instructions. You may also get instructions on position changes to help your breathing, such as lying on your belly (prone positioning). If you were treated at a hospital and discharged, you may be senthome with a pulse oximeter. This is a small electronic device that you clip on your fingertip. It measures the amount of oxygen in your body. Follow your healthcare team's instructions on its use, how they will be in touch with you, and let you know when to call them. For people who test positive for COVID-19 and are more likely to get very sick or from COVID-19, treatments are available that can reduce the chances of a hospital stay or . If you test positive for COVID-19 and are at high-risk for getting very sick from COVID, contact your healthcare provider right away to learn more about your treatment options. ?? Home care for a sick person? Follow all instructions from healthcare staff. ??? Wash your hands often. ??? Wear protective clothing as advised. Wear a mask when caring for someone with COVID-19.??? Make sure the sick person wears a mask. If they can't wear a mask, don't stay in the same room with the person. If you must be in the same room, wear a face mask. When wearing a mask, make sure that it covers both the nose and mouth. ??? Keep track of the sick person???s symptoms. ??? Clean home surfaces often with disinfectant. This includes phones, kitchen counters, fridge door handle, bathroom surfaces, and others. ??? Don???t let anyone share household items with the sick person. This includes eating and drinking tools, towels, sheets, or blankets. ??? Clean fabrics and laundry thoroughly. ??? Keep other people and pets away from the sick person. ?? When you can stop isolation You can end isolation based on how serious your COVID-19 symptoms were. If you had a positive COVID-19 test but had no symptoms, you can end isolation after day 5. Day 0 was the first day you tested. If you had COVID-19 symptoms, you may end isolation after day 5 if: ? You are fever-free for 24 hours without using fever-reducing medicines such as acetaminophen, and ??? Your symptoms such as cough or trouble breathing are better ?? If you have moderate or severe COVID-19, your instructions on when to stop isolation are different.Moderate COVID-19 means you had shortness of breath or difficulty breathing. Severe COVID-19 means you were in the hospital. If you have a weak immune system and COVID-19, you also will be advised toisolate longer. Some conditions and treatments can cause a weak immune system. These include cancertreatment, bone marrow or organ transplants, and conditions such as HIV or other immune system disorders. If you have moderate or severe COVID-19 or if you have a weak immune system and COVID-19, youwill need to isolate through day 10. Day 0 is the first day you tested or had symptoms. If you had s evere COVID-19 or have a weak immune system, talk with your provider before you end isolation. See the CDC's isolation guidance. CDC mask guidance after isolation Follow the CDC's guidance on when to remove your mask after having COVID-19. After you end isolation when you are feeling better, wear your mask: ??? Through day 10, or ??? Sooner with testing. If you have 2 negative COVID-19 antigen tests taken48 hours apart, you may remove your mask sooner than day 10. For COVID-19 prevention, follow the CDC's guidance and your local community's instructions on face masks. ??? Follow the CDC's guidance and your local community's instructions on face masks. Everyone ages 2 years and older should correctly wear a well-fitting mask indoors in public in areas where the COVID-19 Community Level is high, even if you are fully vaccinated. ??? Wear a mask with the best fit, protection, and comfort for you. ??? You may choose to wear a mask that offers greater protection incertain situations, such as when you are with people at higher risk for severe illness, or if you are at higher risk for severe illness. ??? See the CDC's mask guidance. ? When to call your healthcare provider Call your healthcare provider right away if a sick person has any of these: ??? Trouble breathing ??? Pain or pressure in chest If a sick person has any of these, call 911: ??? Trouble breathing that gets worse ??? Pain or pressure in chest that gets worse ??? Blue tint to lips or face ??? Fast or irregular heartbeat ??? Confusion or trouble waking ??? Fainting or loss of consciousness ??? Coughing up blood ?? Date last modified: 11/11/2022 ?? Last Reviewed Date: 2021 ?? [employer]. All rights reserved. This information is not intended as a substitute for professional medical care. Always follow your healthcare professional's instructions. ?? * Deana Lala MD: PERFORM Event Display: Patient Education Leaflets Authored Date: [id number] Coronavirus Disease 2019 (COVID-19): Overview ?? 70156 Coronavirus Disease 2019 (COVID-19): Overview Coronavirus disease 2019 (COVID-19) is an illness that infects the lungs. It's caused by a type of coronavirus. The virus is called SARS-CoV-2. There are many types of coronaviruses. They are a common cause of colds and bronchitis. They can cause a lung infection called pneumonia. Symptoms can range from mild to severe. Some people have no symptoms. These types of viruses are also found in some animals. Viruses change (mutate) all the time. The changes lead to different forms of a virus. These are called variants. COVID-19 variants may spread more easily from person to person. They may cause milder symptoms. Or they may cause more severe symptoms.?? The virus spreads and infects people easily. It can infect a person more easily if they are not immune to it. The virus most often spreads through droplets of fluid that a person coughs or sneezes into the air. In some cases, you can get it from touching a surface with the virus on it and then touching your eyes, nose, or mouth. To help prevent spreading the infection, wash your hands often, or use an alcohol-based hand sales merchandise associate. To learn more For the latest from the CDC: ??? Go to the CDC website ??? Call 825-ZJW-BCIO ([phone]) ?? What are the symptoms of COVID-19? Some people have no symptoms. Some have mild symptoms. Others may have severe symptoms. This variesfrom person to person. Symptoms may start 2 to 14 days after contact with the virus. They can include: ??? Fever ??? Chills ??? Coughing ??? Trouble breathing or feeling short of breath ??? Sore throat ??? Stuffy or runny nose ??? Headache ??? Body aches ??? Tiredness ??? Nausea, vomiting, diarrhea, or belly pain ??? New loss of sense of smell or taste ?? What are possible complications of COVID-19? The virus can cause an infection in the lungs. This is called pneumonia. This can lead to in some cases. Experts are still learning more about COVID-19 problems. Problems may include: ??? Low blood pressure ??? Kidney failure ??? Inflammation of the brain or heart ??? Rashes Some people are at higher risk for problems. This includes: ??? Older adults ??? People with heart or lung disease ??? People with diabetes or kidney disease ??? People with health conditions that limit the immune system ??? People who take medicines that limit the immune system Rarely, a child may have a severe complication. This is called multisystem inflammatory syndrome inchildren (MIS-C). MIS-C seems to be like Kawasaki disease. This is a rare illness. It causes swelling of blood vessels and body organs. MIS can also happen in adults. But this is less common. ? How is COVID-19 diagnosed? Your healthcare provider will ask: ??? What symptoms you have ??? Where you live ??? If you???ve traveled recently ??? If you???ve hadcontact with sick people ??? If you are vaccinated against COVID-19 ??? If you have had COVID-19 You may have 1 of these tests for COVID-19: ??? Viral (molecular) test. You may also hear this called a PCR or RT-PCR test. Viral tests are very accurate. A viral test looks for the genetic material (RNA) of the SARS-CoV-2 virus. There are a few ways to do this. A swab may be wiped inside your nose or throat. Or a long swab may be put into your nose down to the back of your throat. Or a sample of your saliva may be taken. Your test results may be back in 45 minutes to a few hours. This depends on the type of test. Some tests must be sentto a lab. These can take several days for the results. You can now get test kits to use at home. Some of these need a prescription. Follow the instructions in the kit closely if you use a home kit. Some kits show results quickly at home. Others must be sent to a lab for the results. ??? Antigen test. This can find proteins from the SARS-CoV-2 virus. A swab may be wiped inside your nose or throat.Or a long swab may be put into your nose down to the back of your throat. Some results are back within 15 to 60 minutes. This depends on the type of test. Positive results are very accurate. But false positive results can happen. And the results can be negative even in people with COVID-19. Antigen tests are more likely to miss a COVID-19 infection than a viral (molecular) test. You may need to have a viral test if your antigen test is negative but you have symptoms of COVID-19. ??? Breath test. This rapid test is not widely available at this time. It finds SARS-CoV-2 infection in the breath.The test is done at providers' offices, hospitals, and mobile testing sites. You may have other tests if your provider thinks or confirms that you have COVID-19. These tests may include: ??? Antibody blood test. This type of test can show if you had the virus in the past. It shows antibodies for the virus in the blood. The accuracy of these tests varies. And they are not available everywhere. An antibody test may not show if you have an infection right now. This is because it can take up to a few weeks for your body to make antibodies. None of the antibody tests can yet be used to tell if a person is immune to the virus. ??? Sputum culture. If you have a wet cough, you may be asked to cough up a bit of mucus (sputum) from your lungs. This is tested for the virus. It may be tested for pneumonia. ??? Imaging tests. You may have a chest X-ray or CT scan. Can you get COVID-19 again? Yes, you can get COVID-19 more than once. You may not have immunity. You could have lost the immunity. Or you may get COVID-19 from a different strain (variant) of the virus that you are not immune to. But the COVID-19 vaccine helps lower the risk for COVID-19. ?? Vaccines for COVID-19 The FDA and CDC advise vaccines for people 6 months and older to help prevent COVID-19. The vaccines can also make the illness less severe. It can keep you from needing to go to the hospital.?? And it can prevent the spread of the virus to others. No vaccine is 100% effective at preventing an illness. But getting a vaccine is important. or people can have the vaccine. Updated (bivalent) mRNA vaccines from [employer] and [employer] are advised. Other options are available for people who can't or won't get an mRNA vaccine. These are Novavax and [email or web address] COVID-19 vaccines. COVID-19 vaccines are given as a shot (injection) into the muscle. Ask your healthcare provider which vaccine is best for you and your family. COVID-19 vaccine booster shots People ages 6 months or older can get a COVID-19 booster shot. It's given a few months after their primary series. Boosters can help with protection against COVID-19 that may have decreased over time. Booster advice varies by vaccine, age, health, and COVID-19 variants. People ages 65 and older and some people with a very weak immune system should get an updated (bivalent) mRNA booster. Talk with your provider about your risk and how this applies to you. ?? How is COVID-19 treated? The best treatments right now are those to help your body while it fights the virus. This is calledsupportive care. It includes: ??? Rest. This helps your body fight the illness. ??? Fluids. Try to drink 6 to 8 glasses of fluidsevery day. Ask your provider which drinks are best for you. Don't have drinks with caffeine or alcohol. ??? Xozp-hwb-tphckrv (OTC) medicine. These are used to help ease pain and reduce fever. Ask your provider which OTC medicine is safe for you to use. Talk with your provider if you have confirmed COVID-19. You may qualify for medicines approved by the FDA to prevent severe COVID-19 infection. You may need to stay in the hospital for severe illness. Your care may include: ??? IV fluids. These are given through a vein. This helps to replace fluids in your body. ??? Oxygen. You may be given extra oxygen. Or you may be put on a breathing machine (ventilator). This is done so you get enough oxygen in your body. ??? Prone positioning. Your healthcare team may regularly turn you on your stomach. This is called prone positioning. It helps increase the amount of oxygen you get to your lungs.Follow their instructions on position changes while you're in the hospital and at home. ??? Antiviral medicines. Antivirals stop the SARS-CoV-2 virus from spreading in the body. The FDA has approved certain antiviral medicines to treat mild to moderate COVID-19 in people who are more likely to get very sick. These treatments are not available for everyone. Talk with your provider to learn more. ??? Steroids or other anti-inflammatory medicines. These are used to lessen the inflammation that some people with COVID-19 have. Inflammation can lead to more trouble breathing. It can cause other complications or . ??? Monoclonal antibodies. These were once used for earlier COVID-19 strains, but monoclonal antibody treatment is not effective for the latest variant. Talk with your provider uriel more. ??? COVID-19 convalescent plasma. Plasma is the liquid part of blood. People who had COVID-19 may be asked to donate plasma. This is called COVID-19 convalescent plasma. The plasma may have antibodies. Some people with COVID-19 who have very weak immune systems may benefit from this treatment. Your provider can help decide if it's right for you. ?? Are you at risk for COVID-19? You are at risk for COVID-19 if any of these apply to you: ??? You live in or traveled to an area with cases of COVID-19 ??? You had close contact (within 6 feet) with someone who had COVID-19 COVID-19 may be spread by people who don't show symptoms. Date last modified: 01/11/2023 ?? Last Reviewed Date: 2021 ?? [employer]. All rights reserved. This information is not intended as a substitute for professional medical care. Always follow your healthcare professional's instructions. ?? * Spike WILCOX, Deana: PERFORM Event Display: Patient Education Leaflets Authored Date: [id number] COVID-19: Caring for Yourself or Others ?? 34504 COVID-19: Caring for Yourself or Others If you or a household member test positive for COVID-19 or have symptoms like fever, cough, fatigue, loss of taste or smell, follow these guidelines for preventing spread of the virus and managing symptoms. This is regardless of your vaccination status. If you have symptoms or have been diagnosed with COVID-19 If you have symptoms of COVID-19 or you test positive (even without symptoms): ??? Stay home at least 5 days and isolate in your home. Separate from others as much as possible. You are most likely infectious during these first 5 days. Day 0 is the first day you tested or first had symptoms. Day 1 is the first full day after your symptoms started or following your positive test. See the CDC's website for current, detailed information about staying home. Follow your local area's instructions on testing and staying home. ??? Stay away from work, school, and public places. Limit physical contact with family members. Limit visitors. Don't kiss anyone or share eating or drinking utensils. Clean surfaces you touch with disinfectant. This is to help prevent the virus from spreading. ??? Wear a high quality, well-fitting mask if you must be around others at home or in public. Don't go places where you are unable to wear a mask. ??? Don't travel. ??? Tell the healthcare staff about recent travel. This includes local travel on public transport. Staff may need to find otherpeople you have been in contact with. ??? Take steps to improve airflow at home. For example, open w indows to improve airflow, change filters in your air conditioning unit, and turn your thermostat to on instead of auto to improve airflow and filtration. For more tips, see the CDC website. ??? Don't share personal items such as eating or drinking utensils and linens or food. ??? If you need to cough or sneeze, do it into a tissue. Then throw the tissue into the trash. If you don't have tissues, cough or sneeze into the bend of your elbow. ??? Wash your hands often. ??? Follow all instructions from your healthcare provider. Call your healthcare provider???s office before going. They can prepare and give you instructions. This will help prevent the virus from spreading. ??? If you need t o go to a hospital or clinic, expect that the healthcare staff will wear protective equipment such as masks, gowns, gloves, and eye protection. You may be advised to wait in or enter through a separate area. This is to prevent the possible virus from spreading. ??? Follow all instructions the healthcare staff gives you. ? Self-care at home?? Protection You can protect yourself and others from getting COVID-19 or from getting very sick if you get it: ??? Vaccinate. Several vaccines and booster shots are available to prevent COVID-19 or reduce its severity. These vaccines reduce how severe the illness will be if you get the virus. No vaccine is ever 100% effective in preventing any illness, but the COVID-19 vaccines work well and are safe. Vaccines are available for people as young as 6 months and boosters are available for people age 5 and older. Expert groups, including ACOG and CDC, advise or people to be vaccinated. Talk with your healthcare provider about which COVID-19 vaccine is best for you and your family. ??? Practice good handwashing. ??? Know your area's community transmission level and what to do if you've been exposed. Stay home if you have suspected or confirmed COVID-19. ??? Keep your distance when possible from a person who is sick or has tested positive for COVID-19. ??? Get tested if needed. ??? Wear a well-fitted mask as advised. See the CDC's mask website. ??? Improve airflow indoors and move indoor activities outside. ??? Call your healthcare provider for treatment if you have COVID-19and are at high risk of getting very sick. ?? Treatment Current treatment is mainly aimed at helping your body while it fights the virus. This is known as supportive care. If you have confirmed COVID-19, talk with your healthcare provider. You may qualifyfor certain medicines approved by the FDA to prevent severe COVID-19 infection. For severe COVID-19, you may need to stay in the hospital. Most people with COVID-19 recover with supportive care. This includes: ??? Getting rest. This helps your body fight the illness. ??? Staying hydrated. Drinking liquids isthe best way to prevent dehydration. Try to drink 6 to 8 glasses of liquids every day, or as advised by your provider. Also check with your provider about which fluids are best for you. Don't drink fluids that contain caffeine or alcohol. ??? Taking nqsk-bky-rithlzf (OTC) pain medicine. These are used to help ease pain and reduce fever. Follow your healthcare provider's instructions for which OTCmedicine to use. If you've been treated for suspected or confirmed COVID-19, follow all of your healthcare team's instructions. You may also get instructions on position changes to help your breathing, such as lying on your belly (prone positioning). If you were treated at a hospital and discharged, you may be senthome with a pulse oximeter. This is a small electronic device that you clip on your fingertip. It measures the amount of oxygen in your body. Follow your healthcare team's instructions on its use, how they will be in touch with you, and let you know when to call them. For people who test positive for COVID-19 and are more likely to get very sick or from COVID-19, treatments are available that can reduce the chances of a hospital stay or . If you test positive for COVID-19 and are at high-risk for getting very sick from COVID, contact your healthcare provider right away to learn more about your treatment options. ?? Home care for a sick person? Follow all instructions from healthcare staff. ??? Wash your hands often. ??? Wear protective clothing as advised. Wear a mask when caring for someone with COVID-19.??? Make sure the sick person wears a mask. If they can't wear a mask, don't stay in the same room with the person. If you must be in the same room, wear a face mask. When wearing a mask, make sure that it covers both the nose and mouth. ??? Keep track of the sick person???s symptoms. ??? Clean home surfaces often with disinfectant. This includes phones, kitchen counters, fridge door handle, bathroom surfaces, and others. ??? Don???t let anyone share household items with the sick person. This includes eating and drinking tools, towels, sheets, or blankets. ??? Clean fabrics and laundry thoroughly. ??? Keep other people and pets away from the sick person. ?? When you can stop isolation You can end isolation based on how serious your COVID-19 symptoms were. If you had a positive COVID-19 test but had no symptoms, you can end isolation after day 5. Day 0 was the first day you tested. If you had COVID-19 symptoms, you may end isolation after day 5 if: ? You are fever-free for 24 hours without using fever-reducing medicines such as acetaminophen, and ??? Your symptoms such as cough or trouble breathing are better ?? If you have moderate or severe COVID-19, your instructions on when to stop isolation are different.Moderate COVID-19 means you had shortness of breath or difficulty breathing. Severe COVID-19 means you were in the hospital. If you have a weak immune system and COVID-19, you also will be advised toisolate longer. Some conditions and treatments can cause a weak immune system. These include cancertreatment, bone marrow or organ transplants, and conditions such as HIV or other immune system disorders. If you have moderate or severe COVID-19 or if you have a weak immune system and COVID-19, youwill need to isolate through day 10. Day 0 is the first day you tested or had symptoms. If you had s evere COVID-19 or have a weak immune system, talk with your provider before you end isolation. See the CDC's isolation guidance. CDC mask guidance after isolation Follow the CDC's guidance on when to remove your mask after having COVID-19. After you end isolation when you are feeling better, wear your mask: ??? Through day 10, or ??? Sooner with testing. If you have 2 negative COVID-19 antigen tests taken48 hours apart, you may remove your mask sooner than day 10. For COVID-19 prevention, follow the CDC's guidance and your local community's instructions on face masks. ??? Follow the CDC's guidance and your local community's instructions on face masks. Everyone ages 2 years and older should correctly wear a well-fitting mask indoors in public in areas where the COVID-19 Community Level is high, even if you are fully vaccinated. ??? Wear a mask with the best fit, protection, and comfort for you. ??? You may choose to wear a mask that offers greater protection incertain situations, such as when you are with people at higher risk for severe illness, or if you are at higher risk for severe illness. ??? See the CDC's mask guidance. ? When to call your healthcare provider Call your healthcare provider right away if a sick person has any of these: ??? Trouble breathing ??? Pain or pressure in chest If a sick person has any of these, call 911: ??? Trouble breathing that gets worse ??? Pain or pressure in chest that gets worse ??? Blue tint to lips or face ??? Fast or irregular heartbeat ??? Confusion or trouble waking ??? Fainting or loss of consciousness ??? Coughing up blood ?? Date last modified: 11/11/2022 ?? Last Reviewed Date: 2021 ?? [employer]. All rights reserved. This information is not intended as a substitute for professional medical care. Always follow your healthcare professional's instructions. ?? Patient Care team information Care Team Personnel Name: Dash WILCOX (OR) , Paola Anderson Position: [facility] Outreach Member Role: PCP Address: Address: [address] [place] [phone] [place] Name: Gregg Capps RN Position: [facility] RN Member Role: Primary Care Nurse Name: Daina Ibrahim RN Position: [facility] ED RN W/OE and Tasks Member Role: Primary Care Nurse Name: Madeline Baird RN Position: [facility] ED RN W/OE and Tasks Member Role: Primary Care Nurse Name: Teresa Carpio Position: [facility] RN Member Role: Primary Care Nurse Name: Inge Elizabeth RN Position: [facility] SN RN Member Role: Primary Care Nurse Name: Kelley Prasad RN Position: [facility] RN Member Role: Primary Care Nurse Name: Cindy Medeiros RN Position: [facility] RN Member Role: Primary Care Nurse Name: Linnette De La O RN Position: [facility] EDITORIAL SPECIALIST Member Role: Primary Care Nurse Name: Alina Castillo NP Position: [facility] Associate Professional Member Role: Primary Care Nurse Address: Address: [address] [place] [address]- Name: Mary Anne Kilpatrick RN Position: [facility] MR W/ Merge Member Role: Primary Care Nurse Name: Nicole Hernández RN Position: [facility] RN Member Role: Primary Care Nurse Name: Lindsay Srinivasan CNM Position: [facility] Greenskeeper Head Member Role: Primary Care Nurse Address: Address: [address] [place] [address]- [place] Name: Kiana Sabillon RN Position: [facility] RN Member Role: Primary Care Nurse Name: Larissa Olson [place] Position: [facility] RN Member Role: Primary Care Nurse Name: Karen Roa RN Kate Position: [facility] ED RN W/OE and Tasks Member Role: Primary Care Nurse Name: Mary Alice Stevens RN Position: [facility] RN Member Role: Primary Care Nurse Name: Beverly Grey Position: [facility] RN Member Role: Primary Care Nurse Name: Alexy Geronimo RN Position: [facility] ED RN W/OE and Tasks Member Role: Primary Care Nurse Name: Raúl Rudolph DO Position: [facility] SHORT RANGE AIR DEFENSE ARTILLERY MD Member Role: Lifetime [employer] Physician Address: Address: [address] [place] [address] [place] [address]- [place] Name: Evelyn Haynes RN Position: [facility] RN Member Role: Primary Care Nurse Name: Crissy Metzgre RN Position: [facility] RN Member Role: Primary Care Nurse Name: Elisa Gilbert RN Position: [facility] RN Member Role: Primary Care Nurse Name: Corina Solorio RN Position: [facility] AMB Nurse Member Role: Primary Care Nurse Name: Shawnee Lane RN Position: [facility] ED RN W/OE and Tasks Member Role: Primary Care Nurse Name: Ana Estrada RN Position: [facility] RN Member Role: Primary Care Nurse Name: Erna Douglass RN Position: [facility] SN RN Member Role: Primary Care Nurse Name: Keyana Ndiaye RN Position: [facility] Foreign Exchange Clerk Member Role: Primary Care Nurse Name: Anabella Nicholson RN Position: [facility] AMB Nurse Member Role: Primary Care Nurse Name: Brenda Tomas RN Position: [facility] Outreach Member Role: Primary Care Nurse Name: Ramona Ybarra RN Position: [facility] RN Member Role: Primary Care Nurse Address: Address: [address] [place] [id number]- [place] Name: Nancy Gallagher RN Position: [facility] Foreign Exchange Clerk Member Role: Primary Care Nurse Name: Evelyn Allen RN Position: [facility] OB RN Member Role: Primary Care Nurse Name: Jackelin Watt RN Position: [facility] RN Member Role: Primary Care Nurse Name: Cata Elizabeth RN Position: [facility] SN RN Member Role: Primary Care Nurse Name: Opal Calderon RN Position: [facility] RN Member Role: Primary Care Nurse Name: Yadiel Warner RN Position: [facility] SN RN Member Role: Primary Care Nurse Name: ValeriaLeroy Schrader Attending Position: [facility] ED Medicine MD Name: Michelle Pelletier Position: [facility] ED OA Charge Member Role: ED Associate Name: Rachele Thapa RN Position: [facility] ED RN W/OE and Tasks Member Role: Patient Care Provider Name: Yvon Burks Position: [facility] ED TA [facility] Member Role: Patient Care Provider Care Team Related Persons Name: BARTOLOME IBRAHIM Address: [address] [place] [address] Name: GIANLUCA IBRAHIM Address: home [address] [place] [id number] Name: ABBIE IBRAHIM Address: home [address] [place] [address] Name: SIM CERDA Name: DIANE CERDA Address: home [address] [place] [id number] Name: SOLO CORRIGAN Address: home [address] [place] [address] Name: SOLO FLORES Address: home [address] [place] [id number] Name: CATA MAYFIELD Address: [address] [place] [address]
--- OUTSIDE RECORDS SUMMARY | 2024-01-27 11:34 | XMS_ITS | Continuity of Care Document ---
Author Organization [facility] Address [address] [place] [address]- Care Team Providers Care Sales Development Consultant Name Role Phone Dash WILCOX (OK), Paola Anderson Primary Care Physician Encounter [facility] Date(s): 07/02/23 - 08/01/23 [facility] [address] [place] [address]- Allergies, Adverse Reactions, Alerts Substance Reaction Severity [...] tablet, 3 Refills, Maintenance, 08/17/22 15:43:00 EST, [facility] #[id number], 170, cm, 05/13/22 17:18:00 EDT, Height, 88.8, kg, 05/13/22 17:18:00 EDT, Dry Weight Start Date: 08/17/22 Status: Ordered Ativan 1 mg oral tablet 1 tablet = 1 mg, By Mouth, 3 times a day, PRN for anxiety, # 11 tablet, 0 Refills, Maintenance, 07/15/23 11:42:00 EDT, Tablet, [facility] #[id number], Partial fill upon patient request if the [...] 01/08/21 13:59:00 EDT, Route to Pharmacy Electronically, [facility] #[id number], Partial fill upon patient request if the prescription is for a sched... Start Date: 01/08/21 Status: Ordered Flonase 50 mcg/inh nasal spray 2 sprays, Nares, Both, 2 times a day, PRN Congestion, # 16 Gm, 0 Refills, Maintenance, 08/20/20 11:17:00 EST, [place], [facility] #[id number], Partial fill upon patient request if the prescriptionis for a schedule II opioid drug., 170, cm, 2... Start Date: 08/20/20 Status: Ordered gabapentin 300 mg oral capsule See Instructions, 1 cap in the AM, 2 in the afternoon and 2 at bedtime, # 1 each, Refills 4, Tot. Refills 4, Maintenance, 11/11/22 15:13:00 EST, Instructions Replace Required Details, Route to Pharmacy Electronically, [facility] #[id number], Part... Start Date: 11/11/22 Status: Ordered Insulin [...] 05/14/23 20:59:00 EDT, Route to Pharmacy Electronically, [facility] #[id number], Partial fill upon patient request if the [...] 0 Refills, Maintenance, 05/13/23 10:33:00 EDT, Tablet, [facility] #[id number], Partial fill upon patient request if the prescription is for a schedule II opioid drug., 1... Start Date: 05/13/23 Stop Date: 05/16/23 Status: Ordered prazosin 2 mg oral capsule 2 capsule = 4 mg, By Mouth, Daily at bedtime, if PO intake is low or BP low below 110/70 only take one cap, # 60 capsule, 4 Refills, Maintenance, 11/11/22 15:17:00 EST, [facility] #[id number], Partial fill upon patient request if the [...] 03/10/23 15:36:00 EDT, Route to Pharmacy Electronically, [facility] #[id number], Partial fill upon patient request if the [...] Refills, Soft Stop, 05/27/23 14:16:00 EDT, Powder, [facility] #[id number], Partial fill upon patient... Start Date: 05/27/23 Status: Ordered spironolactone 25 mg oral tablet 25 mg, 1, tablet, By Mouth, Daily, # 30 tablet, Refills 3, Tot. Refills 3, Maintenance, 05/14/23 20:55:00 EDT, Route to Pharmacy Electronically, [facility] #[id number], Partial fill upon patientrequest if the prescription [...] oldest [Reference Range]: 1 Height 170 cm (07/05/23 9:05 AM) Weight 90 kg (07/05/23 9:05 AM) Social History Social History Type [...] information Care Team Personnel Name: Dash WILCOX (OK) , Paola Anderson Position: [facility] Outreach Member Role: PCP Address: Address: [address] [place] [address] [place] Name: Daina Ibrahim RN Position: [facility] ED RN W/OE and Tasks Member Role: Primary Care Nurse Name: Madeline Baird RN Position: [facility] ED RN W/OE and Tasks Member Role: Primary Care Nurse Name: Teresa Carpio Position: [facility] RN Member Role: Primary Care Nurse Name: Inge Eliazbeth RN Position: [facility] SN RN Member Role: Primary Care Nurse Name: Kelley Prasad RN Position: [facility] RN Member Role: Primary Care Nurse Name: Cindy Medeiros RN Position: [facility] RN Member Role: Primary Care Nurse Name: Linnette De La O RN Position: [facility] BUILDING CODE INSPECTOR Member Role: Primary Care Nurse Name: Alina Castillo NP Position: [facility] Associate Professional Member Role: Primary Care Nurse Address: Address: [address] [place] [address]- [place] Name: Mary Anne Kilpatrick RN Position: [facility] MR W/ Merge Member Role: Primary Care Nurse Name: Nicole Hernández RN Position: [facility] RN Member Role: Primary Care Nurse Name: Lindsay Srinivasan CNM Position: [facility] Blocker Automatic Member Role: Primary Care Nurse Address: Address: [address] [place], [place] [address] [address]- [place] Name: Larissa Olson [place] Position: [facility] RN Member Role: Primary Care Nurse Name: Karen Roa RN Position: [facility] ED RN W/OE and Tasks Member Role: Primary Care Nurse Name: Mary Alice Stevens RN Position: [facility] RN Member Role: Primary Care Nurse Name: Beverly Grey Position: [facility] RN Member Role: Primary Care Nurse Name: Alexy Geronimo RN Position: [facility] RN Member Role: Primary Care Nurse Name: Raúl Rudolph DO Position: [facility] PAVING BLOCK CUTTER MD Member Role: Lifetime PAVING BLOCK CUTTER Physician Address: Address: [address] [place], [place] [address]s [facility] [place] [address]- [place] Name: Evelyn Haynes RN Position: [facility] RN Member Role: Primary Care Nurse Name: Crissy Metzger RN Position: [facility] RN Member Role: Primary Care Nurse Name: Elisa Gilbert RN Position: [facility] RN Member Role: Primary Care Nurse Name: Corina Solorio RN Position: [facility] SN RN Member Role: Primary Care Nurse Name: Shawnee Lane RN Position: [facility] ED RN W/OE and Tasks Member Role: Primary Care Nurse Name: Erna Douglass RN Position: [facility] SN RN Member Role: Primary Care Nurse Name: Keyana Ndiaye RN Position: [facility] Hand Tile Maker Member Role: Primary Care Nurse Name: Anabella Nicholson RN Position: [facility] AMB Nurse Member Role: Primary Care Nurse Name: Brenda Tomas RN Position: [facility] Outreach Member Role: Primary Care Nurse Name: Ramona Ybarra RN Position: [facility] RN Member Role: Primary Care Nurse Address: Address: [address] [place] [address] Name: Nancy Gallagher RN Position: [facility] Hand Tile Maker Member Role: Primary Care Nurse Name: Evelyn Allen RN Position: [facility] OB RN Member Role: Primary Care Nurse Name: Jackelin Watt RN Position: [facility] RN Member Role: Primary Care Nurse Name: Raymundo Elizabeth RN Position: [facility] SN RN Member Role: Primary Care Nurse Name: Opal Calderon RN Position: [facility] RN Member Role: Primary Care Nurse Name: Timmy RN [place] Position: [facility] SN RN Member Role: Primary Care Nurse Care Team Related Persons Name: BARTOLOME IBRAHIM Address: home [address] [place], [place] Name: GIANLUCA IBRAHIM Address: [address] [place], [place] Name: ABBIE IBRAHIM Address: [address] [place] [address] Name: SIM CERDA Name: DIANE CERDA Address: [address] [place] [address] Name: SOLO CORRIGAN Address: [address] [place], [place] Name: SOLO FLORES Address: [address] [place], [place] Name: RAYMUNDO MAYFIELD Address: [address] [place] [address]
--- OUTSIDE RECORDS SUMMARY | 2024-01-27 11:34 | XMS_ITS | Continuity of Care Document ---
Author Organization [facility] Address [address] [place] [address]- Care Team Providers Care Recycle Driver Name Role Phone Dash WILCOX ([place]), Paola Anderson Primary Care Physician Encounter [facility] Date(s): 05/14/23 - 05/14/[address] [address]- Discharge Disposition: A-D/C Home Attending Physician: True Sanford MD Admitting Physician: True Sanford MD Referring Physician: Not on Staff, Referring MD Allergies, Adverse Reactions, Alerts Substance Reaction Severity Status propranolol Rash Active Xarelto rash Active Zoloft tachycardia n/v [...] tablet, 3 Refills, Maintenance, 08/17/22 15:43:00 EST, [facility] #[id number], 170, cm, 05/13/22 17:18:00 EDT, Height, 88.8, [...] 01/08/21 13:59:00 EDT, Route to Pharmacy Electronically, [facility] #[id number], Partial fill upon patient request if the prescription is for a sched... Start Date: 01/08/21 Status: Ordered famotidine 20 mg oral tablet 20 mg, 1, tablet, By Mouth, Daily at bedtime, # 30 tablet, Refills 0, Tot. Refills 0, Maintenance, 05/13/23 10:33:00 EDT, Route to Pharmacy Electronically, [facility] #[id number], Partial fill upon patient request if the prescription is for a jose... Start Date: 05/13/23 Stop Date: 06/12/23 Status: Ordered Flonase 50 mcg/inh nasal spray 2 sprays, Nares, Both, 2 times a day, PRN Congestion, # 16 Gm, 0 Refills, Maintenance, 08/20/20 11:17:00 EST, [place], [facility] #[id number], Partial fill upon patient request if the prescriptionis for a schedule II opioid drug., 170, cm, ... Start Date: 08/20/20 Status: Ordered gabapentin 300 mg oral capsule 300 mg, 1, capsule, By Mouth, 2 times a day, # 60 capsule, Refills 4, Tot. Refills 4, Maintenance, 11/11/22 15:13:00 EST, Route to Pharmacy Electronically, [facility] #[id number], Partial fill upon patient request if the [...] drug. Start Date: 05/10/23 Status: Ordered metoprolol 100 mg oral tablet 100 mg, 1, tablet, By Mouth, 2 times a day, # 60 tablet, Refills 3, Tot. Refills 3, Maintenance, 05/14/23 20:59:00 EDT, Route to Pharmacy Electronically, [facility] #[id number], Partial fill upon patient request if the [...] days, # 30 tablet, 0 Refills, Acute 05/24/23 12:44:00 EDT, 05/14/23 12:44:00 EDT, Tablet, [facility] #[id number], Partial fill upon patient request if the prescription is for... Start Date: 05/14/23 Stop Date: 05/24/23 Status: Ordered ondansetron 4 mg oral tablet, disintegrating 1 tablet = 4 mg, By Mouth, Every 8 hours, PRN Nausea & Vomiting, # 9 tablet, 0 Refills, Maintenance, 05/13/23 10:33:00 EDT, Tablet, [facility] #[id number], Partial fill upon patient request if the prescription is for a schedule II opioid drug., 1... Start Date: 05/13/23 Stop Date: 05/16/23 Status: Ordered prazosin 2 mg oral capsule 2 capsule = 4 mg, By Mouth, Daily at bedtime, if PO intake is low or BP low below 110/70 only take one cap, # 60 capsule, 4 Refills, Maintenance, 11/11/22 15:17:00 EST, [facility] #[id number], Partial fill upon patient request if the [...] 03/10/23 15:36:00 EDT, Route to Pharmacy Electronically, [facility] #[id number], Partial fill upon patient request if the [...] Refills, Soft Stop, 04/20/22 10:54:00 EDT, Powder, [facility] #[id number], Partial fill upon patient... Start Date: 04/20/22 Status: Ordered spironolactone 25 mg oral tablet 25 mg, 1, tablet, By Mouth, Daily, # 30 tablet, Refills 3, Tot. Refills 3, Maintenance, 05/14/23 20:55:00 EDT, Route to Pharmacy Electronically, [facility] #[id number], Partial fill upon patientrequest if the prescription is for a schedule II op... Start Date: 05/14/23 Stop Date: 09/11/23 Status: Ordered Toradol Inj 15 mg, Injection, IV Push Slowly, Once, STAT, 05/14/23 10:06:00 EDT, Stop date 05/14/23 10:06:00 EDT Start Date: 05/14/23 Stop Date: 05/14/23 Status: Completed Problem List Condition Confirmation Course Effective Dates [...] Range]: 1 2 3 Height 170 cm (05/14/23 1:01 PM) 170 cm (05/14/23 9:43 AM) 170 cm (05/14/23 7:31 AM) Weight 87 kg (05/14/23 1:01 PM) 87 kg (05/14/23 9:43 AM) 87 kg (05/14/23 7:31 AM) Oxygen Saturation [94-100 %] 98 % (05/14/23 1:01 PM) 96 % (05/14/23 9:43 AM) 100 % (05/14/23 7:00 AM) Pulse Rate [55-90 bpm] 78 bpm (05/14/23 1:01 PM) 66 bpm (05/14/23 9:43 AM) 80 bpm (05/14/23 7:00 AM) Body Mass Index [18.5-24.99 kg/m2] 30.1 kg/m2 *>HHI* (05/14/23 1:01 PM) 30.1 kg/m2 *>HHI* (05/14/23 9:43 AM) Blood Pressure [90-138/55-84 mm Hg] 144/101mm Hg *H* (05/14/23 1:01 PM) 131/67mm Hg (05/14/23 9:43 AM) 170/86mm Hg *H* (05/14/23 7:00 AM) Respiratory Rate [16-30 br/min] 20 br/min (05/14/23 1:01 PM) 18 br/min (05/14/23 10:36 AM) 17 br/min (05/14/23 9:43 AM) Temperature [96.8-100.4 DegF] 97.7 DegF (05/14/23 7:00 AM) Mode of Delivery (Oxygen) Room air (05/14/23 1:01 PM) Room air (05/14/23 9:43 AM) Room air (05/14/23 7:00 AM) Blood pressure sites Arm, left (05/14/23 1:01 PM) Arm, right (05/14/23 9:43 AM) Temperature Route Oral (05/14/23 7:00 AM) Dry Weight 87 kg (05/14/23 1:01 PM) 87 kg (8/25/23 9:43 AM) 87 kg (05/14/23 7:31 AM) Social History Social History Type Response [...] Unknown Unknown Active Un known Note * Claribel WILCOX, True Anderson: PERFORM Event Display: Patient Education Leaflets Authored Date: [id number] Medicine Reaction: Dystonic ?? [id number] Medicine Reaction: Dystonic You are having a muscular reaction to a medicine you have taken. This is an uncontrolled movement of muscles (dystonia). This isn't a very common reaction. It's most often caused by medicines given for nausea, seizures, or mental health (psychiatric) issues. It can happen fairly quickly after taking the medicine. But it may occur after hours or even days. Sometimes this reaction happens when a new medicine you have started slows down the breakdown of a previous medicine you were taking. Usually, stopping the new medicine will stop the reaction. This can take up to 3 days. In rare cases, it can take a lot longer. You've been given medicines to help treat the reaction. Symptoms may include: ??? Stiffening, tightness, spasm, or twisting of the muscles in the eyes, tongue, jaw, back, legs, or arms ??? Trouble speaking and swallowing ??? Trouble opening your mouth ??? Trouble moving your neck and head ??? Restless, jittery feeling all over your body Home care ??? You may eat and drink as normal. Take your other prescribed medicines as directed. Don't drink alcohol for the next 3 days. ??? Take diphenhydramine, or the medicines you were given, for at least 2 days, or as advised. After 2 days, most of the medicine that caused the reaction shouldbe gone from your body. ??? If symptoms return, take the medicines for the reaction for another 48 hours. If this doesn't help, or if you run out of medicine, call your healthcare provider. ?? Prevention ??? Most dystonic reactions are caused by a class of medicines called phenothiazines. Some antinausea medicines and some tranquilizers are in this class. If you have reacted to one medicine??in this class, any medicine in this class will likely cause the same reaction. Other medicines that may cause this reaction include metoclopramide, antipsychotics, and some anesthetics. Some illegal drugs can also cause this reaction. ??? Unless advised by your healthcare provider, don't take themedicine that caused the reaction ever again. It may cause the same reaction in the future. In somecases, this medicine may be needed to treat your condition. There may be no substitute. Then, you can take each dose along with the medicine to treat the reaction. ??? Don't take any new medicines without letting your provider know. This includes iyzj-fty-tadfiox medicines. ??? Each time you visit a healthcare provider or a hospital, tell them about your reaction to this medicine. ?? Follow-up care Follow up with your healthcare provider, or as advised. ?? When to get medical advice Call your healthcare provider right away if any of these occur: ??? Symptoms come back and aren't controlled by restarting the medicine you were given to treat the reaction. ??? Symptoms continue or you need to take the medicine for more than 3 days. ?? Call 911 Call 911??if any of these occur: ??? Trouble breathing or swallowing ??? Trouble speaking ??? Confusion ??? Extreme drowsiness or trouble waking up ??? Fainting or loss of consciousness ??? Fast heart rate ??? Seizure ?? Last Reviewed Date: 2022 ?? The [employer]. All rights reserved. This information is not intended as a substitute for professional medical care. Always follow your healthcare professional's instructions. ?? * Claribel WILCOX, True Anderson: PERFORM Event Display: Patient Education Leaflets Authored Date: [id number] Diet for Vomiting or Diarrhea (Adult) ?? [id number] Diet for Vomiting or Diarrhea (Adult) Your [...] ease. ?? Last Reviewed Date: 2022 ?? [employer]. All rights reserved. This information is not intended as a substitute for professional medical care. Always follow your healthcare professional's instructions. ?? * Claribel WILCOX, True Anderson: PERFORM Event Display: Patient Education Leaflets Authored Date: [id number] Vomiting (Adult) ?? [id number] Vomiting (Adult) Vomiting is a common symptom [...] soap and clean, running water or alcohol-based drafter electronic to keep from spreading the infection to [...] symptoms ?? Last Reviewed Date: 2021 ?? [id number] The [employer]. All rights reserved. This information is not intended as a substitute for professional medical care. Always follow your healthcare professional's instructions. ?? Patient Care team information Care Team Personnel Name: Dash WILCOX ([place]) , Paola Anderson Position: [facility] Outreach Member Role: PCP Address: Address: [address] [place] [address] [place] Name: Daina Ibrahim RN Position: [facility] ED RN W/OE and Tasks Member Role: Primary Care Nurse Name: Madeline Baird RN Position: [facility] ED RN W/OE and Tasks Member Role: Primary Care Nurse Name: Teresa Carpio Position: [facility] RN Member Role: Primary Care Nurse Name: Inge Elizabeth RN Position: [facility] SN RN Member Role: Primary Care Nurse Name: Kelley Prasad RN Position: [facility] RN Member Role: Primary Care Nurse Name: Cindy Medeiros RN Position: [facility] RN Member Role: Primary Care Nurse Name: Linnette De La O RN Position: [facility] ESL TUTOR Member Role: Primary Care Nurse Name: Alina Castillo NP Position: [facility] Associate Professional Member Role: Primary Care Nurse Address: Address: [address] [place] [address]- [place] Name: Mary Anne Kilpatrick RN Position: [facility] MR W/ Merge Member Role: Primary Care Nurse Name: Niocle Hernández RN Position: [facility] RN Member Role: Primary Care Nurse Name: Douglas Harris Position: [facility] Cardio/Pulm Mgr ([facility]) Member Role: Primary Care Nurse Name: Lindsay Srinivasan CNM Position: [facility] Diesel Engine Operator Member Role: Primary Care Nurse Address: Address: [address] [place] [address] [place] [address]- [place] Name: Larissa Olson [place] Position: [facility] RN Member Role: Primary Care Nurse Name: Karen Roa RN Position: [facility] ED RN W/OE and Tasks Member Role: Primary Care Nurse Name: Mary Alice Stevens RN Position: [facility] RN Member Role: Primary Care Nurse Name: Beverly Grey Position: [facility] RN Member Role: Primary Care Nurse Name: Alexy Geronimo RN Position: [facility] RN Member Role: Primary Care Nurse Name: Raúl Rudolph DO Position: [facility] MACHINE APPLICATOR CEMENTER MD Member Role: Lifetime MACHINE APPLICATOR CEMENTER Physician Address: Address: [address] [facility] [place] [address]- [place] Name: Evelyn Haynes RN Position: [facility] RN Member Role: Primary Care Nurse Name: Crissy Metzger RN Position: [facility] RN Member Role: Primary Care Nurse Name: Elisa Gilbert RN Position: [facility] RN Member Role: Primary Care Nurse Name: Corina Solorio RN Position: [facility] AMB Nurse Member Role: Primary Care Nurse Name: Shawnee Lane RN Position: [facility] ED RN W/OE and Tasks Member Role: Primary Care Nurse Name: Erna Douglass RN Position: [facility] SN RN Member Role: Primary Care Nurse Name: Keyana Ndiaye RN Position: [facility] Malware Analyst Member Role: Primary Care Nurse Name: Anabella Nicholson RN Position: [facility] AMB Nurse Member Role: Primary Care Nurse Name: Brenda Tomas RN Position: [facility] Outreach Member Role: Primary Care Nurse Name: Ramona Ybarra RN Position: [facility] RN Member Role: Primary Care Nurse Address: Address: [address] [place] [address] Name: Nancy Gallagher RN Position: [facility] Malware Analyst Member Role: Primary Care Nurse Name: Evelyn Allen RN Position: [facility] OB RN Member Role: Primary Care Nurse Name: Jackelin Watt RN Position: [facility] RN Member Role: Primary Care Nurse Name: Raymundo Elizabeth RN Position: [facility] SN RN Member Role: Primary Care Nurse Name: Opal Calderon RN Position: [facility] RN Member Role: Primary Care Nurse Name: Timmy THOMPSON [place] Position: [facility] SN RN Member Role: Primary Care Nurse Name: Ayanna Neves RN Position: [facility] ED RN W/OE and Tasks Member Role: Patient Care Provider Name: True Sanford MD Position: [facility] ED Medicine MD Member Role: Admitting Physician Address: Address: [address] [place] [address] [place] [address]- [place] Name: Rosalinda eRmy Position: [facility] ED OA Member Role: Lubricator Granulator Care Team Related Persons Name: BARTOLOME IBRAHIM Address: home [address] [place], [place] Name: GIANLUCA IBRAHIM Address: home [address] [place] [address] Name: ABBIE IBRAHIM Address: home [address] [place], [place] Name: SIM CERDA Name: DIANE CERDA Address: home [address] [place] [address] Name: SOLO CORRIGAN Address: [address] [place] [address] Name: SOLO FLORES Address: [address] [place] [address] Name: RAYMUNDO MAYFIELD Address: [address] [place] [address]
--- OUTSIDE RECORDS SUMMARY | 2024-01-27 11:34 | XMS_ITS | Continuity of Care Document ---
Author Organization [facility] Address [address] [place] [address]- Care Team Providers Care Ice Cream Shop Associate Name Role Phone Maranda WILCOX, Silvio Martinez Primary Care Physician Encounter [facility] Date(s): 02/11/21 - 03/13/21 [facility] [address] [place] [address]- Attending Physician: Maximo Cano Admitting Physician: Maximo [...] tablet, 0 Refills, Maintenance, 12/26/20 12:55:00 EDT, [facility] #[id number], Partial fill upon patient request if the prescription is for a schedule II opioid drug., 170, cm,... Start Date: 12/26/20 Status: Ordered Potassium Chloride = 40 mEq, By Mouth, 2 times a day, 0 Refills, Maintenance, 01/20/21 5:39:00 EDT, Partial fill upon patient request if the prescription is for a schedule II opioid drug. Start Date: 01/20/21 Status: Ordered Potassium Chloride (Uyq-Wmjr-Byk M20) 20 mEq oral tablet, extended release 1 tablet = 20 mEq, By Mouth, 2 times a day, # 10 tablet, 0 Refills, Maintenance, 01/20/21 7:48:00 EDT, [facility] #[id number], Partial fill upon patient request if the [...] Refills, Soft Stop, 10/02/20 11:57:00 EST, Powder, [facility] #[id number], Partial fill upon patient... Start Date: 10/02/20 [...] 0 Refills, Maintenance, 01/20/21 7:49:00 EDT, Tablet, [facility] #[id number], Partial fill upon patient request if the [...]
--- OUTSIDE RECORDS SUMMARY | 2024-01-27 11:34 | XMS_ITS | Continuity of Care Document ---
Author Organization [facility] Address [address] [place] [address]- Care Team Providers Care Electronics Inspector Name Role Phone Agustín Faria MD Primary Care Physician Encounter [facility] Date(s): 06/18/21 - 07/18/[address] [address]- Referring Physician: Buffy Bradshaw Allergies, Adverse Reactions, Alerts Substance Reaction Severity [...] 0 Refills, Maintenance, 07/15/21 10:36:00 EDT, Tablet, [facility], Partial fill upon patient request if [...] tablet, 0 Refills, Maintenance, 12/26/20 12:55:00 EDT, [facility] #[id number], Partial fill upon patient request if the [...] Refills, Soft Stop, 04/15/21 10:31:00 EDT, Powder, [facility] #[id number], Partial fill upon patient request i... Start Date: 04/15/21 Status: Ordered Zofran 4 mg oral tablet 1 tablet = 4 mg, By Mouth, Every 8 hours, PRN Nausea & Vomiting, # 10 tablet, 0 Refills, Maintenance, 01/20/21 7:49:00 EDT, Tablet, [facility] #[id number], Partial fill upon patient request if the [...] Model STENT STRETCH VL 6FR - BSCI ([id number]) 1 [employer] Unknown GO:No Information Assigning Authority: FDA
--- OUTSIDE RECORDS SUMMARY | 2024-01-27 11:34 | XMS_ITS | Continuity of Care Document ---
Author Organization [facility] Address [address] [place] [address]- Care Team Providers Care Public Health Clinical Nurse Specialist Name Role Phone Maranda WILCOX, Silvio Martinez Primary Care Physician Encounter [facility] Date(s): 05/16/20 - 07/20/20 [facility] [address] [place] [address]- [facility] Attending Physician: Jolynn Park MD Admitting Physician: Joylnn Park MD Allergies, Adverse Reactions, Alerts Substance [...] mL, Refills 11, Tot. Refills 11, Maintenance, [facility]: [id number], 05/08/20 16:20:00 EDT, Supply, 169, cm, 04/15/20 [...] capsule, 1 Refills, Maintenance, 10/21/19 11:17:00 EST, [facility] #[id number], 1 capsule By Mouth 3 times a [...] 04/09/21 14:58:00 EDT, 04/09/20 14:57:00 EDT, Tablet, [facility] #[id number], 169, cm, 04/05/20 12:55:00 EDT, Height, 85, [...] tablet, 3 Refills, Maintenance, 05/28/20 11:56:00 EDT, [facility] #[id number], 170, cm, 05/27/20 0:11:00 EDT, Height,90.4, kg, [...] Acute 04/30/21 16:58:00 EDT, 04/30/20 16:57:00 EDT, [facility] #[id number], 169, cm, 04/15/20 17:38:00 EDT, Height, 85, [...] Refills, Acute 05/03/21 10:04:00EDT, 05/03/20 10:03:00 EDT, [facility] #[id number], 169, cm, 04/15/20 17:38:00 EDT, Height, 85, kg, 03/15/20 2:33:00 EDT, Dry Weight Start Date: 05/03/20 Stop Date: 05/03/21 Status: Ordered methylprednisolone 2 gm injectable powder for injection See Instructions, inject 4 grams IM for adrenal crisis, # 48 Gm, 3 Refills, Acute 05/03/21 11:58:00EDT, 05/03/21 10:04:00 EDT, [facility], 169, cm, 04/15/20 17:38:00 [...] 0 Refills, Maintenance, 06/18/20 16:48:00 EDT, Tablet, [facility] #[id number], 170, cm, 06/18/20 15:14:00 EDT, Height, 90.4, [...] 11 Refills, Soft Stop, 07/10/20 6:01:00 EDT, [facility] #[id number], 170, cm, 07/10/20 2:42:00 EDT, Height, 90.5, kg, 07/09/20 23:20:00 EDT, Dry Weight Start Date: 07/10/20 Status: Ordered Solu-CORTEF 100 mg preservative-free injection = 100 mg, Intramuscular, Once, prn adrenal crisis, # 5 each, 11 Refills, Soft Stop, 05/03/20 16:07:00 EDT, [facility] #[id number], 169, cm, 04/15/20 17:38:00 EDT, Height, 85, [...] Refills, Maintenance, 12/05/19 20:49:00 EDT, DIS Tablet, [facility] #[id number], 170, cm, 12/05/19 19:19:00 EDT, Height, 88.7, [...]
--- OUTSIDE RECORDS SUMMARY | 2024-01-27 11:34 | XMS_ITS | Continuity of Care Document ---
Author Organization [facility] Address [address] [place] [address]- Care Team Providers Care Fiberglass Product Tester Name Role Phone Silvio Low MD Primary Care Physician Encounter [facility] Date(s): 01/21/21 - 02/21/21 [facility] [address] [place] [address]- Encounter Diagnosis Abdominal pain(Discharge Diagnosis) - 01/22/21 Addisons disease(Discharge Diagnosis) - 01/22/21 Diarrhea(Discharge Diagnosis) - 01/22/21 Colitis(Discharge Diagnosis) - 01/22/21 Gastroduodenitis(Discharge Diagnosis) - 01/22/21 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 Start Date: 12/26/20 Status: Ordered Potassium Chloride = 40 mEq, By Mouth, 2 times a day, 0 Refills, Maintenance, 01/20/21 5:39:00 EDT, Partial fill upon patient request if the prescription is for a schedule II opioid drug. Start Date: 01/20/21 Status: Ordered Potassium Chloride (Xrk-Sdvh-Enk M20) 20 mEq oral tablet, extended release 1 tablet = 20 mEq, By Mouth, 2 times a day, # 10 tablet, 0 Refills, Maintenance, 01/20/21 7:48:00 EDT, [facility] #[id number], Partial fill upon patient request if the [...] Refills, Soft Stop, 10/02/20 11:57:00 EST, Powder, [facility] #[id number], Partial fill upon patient... Start Date: 10/02/20 [...] 0 Refills, Maintenance, 01/20/21 7:49:00 EDT, Tablet, [facility] #[id number], Partial fill upon patient request if the [...] thrombo embolism), chronic(Confirmed) Active 1MRI compatible 2IAROGENIC Diagnosis Diagnosis Type Effective Dates Health Status Clinical Service Informant Abdominal pain Discharge Diagnosis 01/22/21 Addisons disease Discharge Diagnosis 01/22/21 Diarrhea Discharge Diagnosis 01/22/21 Colitis Discharge Diagnosis 01/22/21 Gastroduodenitis Discharge Diagnosis 01/22/21 Functional overlay Discharge Diagnosis 01/22/21 Social History Social History Type Response Smoking Status Current every day rowan munoz; Previous treatment: Counseling; Previous treatment: Nicotine replacement; Other: 1/2 ppd x 20 yrs; entered on: 09/16/16 Sex
--- OUTSIDE RECORDS SUMMARY | 2024-01-27 11:34 | XMS_ITS | Continuity of Care Document ---
Author Organization [facility] Address [address] [place] [address]- Care Team Providers Care Quality Liaison Name Role Phone Maranda WILCOX, Silvio Martinez Primary Care Physician Encounter [facility] Date(s): 05/20/20 - 06/19/20 [facility] [address] [place] [address]- [facility] Allergies, Adverse Reactions, Alerts Substance Reaction Severity [...] mL, Refills 11, Tot. Refills 11, Maintenance, [facility]: [id number], 05/08/20 16:20:00 EDT, Supply, 169, cm, 04/15/20 [...] capsule, 1 Refills, Maintenance, 10/21/19 11:17:00 EST, [facility] #[id number], 1 capsule By Mouth 3 times a [...] 04/09/21 14:58:00 EDT, 04/09/20 14:57:00 EDT, Tablet, [facility] #[id number], 169, cm, 04/05/20 12:55:00 EDT, Height, 85, [...] tablet, 3 Refills, Maintenance, 05/28/20 11:56:00 EDT, [facility] #[id number], 170, cm, 05/27/20 0:11:00 EDT, Height,90.4, kg, [...] Acute 04/30/21 16:58:00 EDT, 04/30/20 16:57:00 EDT, [facility] #[id number], 169, cm, 04/15/20 17:38:00 EDT, Height, 85, kg, 03/15/20 2:33:00 EDT, Dry Weight Start Date: 04/30/20 Stop Date: 04/30/21 Status: Ordered methylprednisolone 2 gm injectable powder for injection See Instructions, inject 4 grams IM for adrenal crisis, # 48 Gm, 11 Refills, Acute 06/08/21 12:08:00 EDT, 05/03/21 10:04:00 EDT, [facility]/pharmacy #[id number], 169, cm, 04/15/20 17:38:00 EDT, Height, 85, kg, 03/15/20 2:33:00 EDT, Dry Weight Start Date: 05/03/21 Stop Date: 06/08/21 Status: Ordered methylprednisolone 2 gm injectable powder for injection See Instructions, inject 4 grams IM for adrenal crisis, # 48 Gm, 3 Refills, Acute 05/03/21 10:04:00EDT, 05/03/20 10:03:00 EDT, [facility] #[id number], 169, cm, 04/15/20 17:38:00 EDT, Height, 85, kg, 03/15/20 2:33:00 EDT, Dry Weight Start Date: 05/03/20 Stop Date: 05/03/21 Status: Ordered methylprednisolone 2 gm injectable powder for injection See Instructions, inject 4 grams IM for adrenal crisis, # 48 Gm, 3 Refills, Acute 05/03/21 11:58:00EDT, 05/03/21 10:04:00 EDT, [facility], 169, cm, 04/15/20 17:38:00 [...] 0 Refills, Maintenance, 06/18/20 16:48:00 EDT, Tablet, [facility] #75608, 170, cm, 06/18/20 15:14:00 EDT, Height, 90.4, [...] 11 Refills, Soft Stop, 05/03/20 16:07:00 EDT, [facility] #[id number], 169, cm, 04/15/20 17:38:00 EDT, Height, 85, [...] Refills, Maintenance, 12/05/19 20:49:00 EDT, DIS Tablet, [facility] #[id number], 170, cm, 12/05/19 19:19:00 EDT, Height, 88.7, [...]
--- OUTSIDE RECORDS SUMMARY | 2024-01-27 11:34 | XMS_ITS | Continuity of Care Document ---
Author Organization [facility] Address [address] [place] [address]- Care Team Providers Care Gold Nib Grinder Name Role Phone Maranda WILCOX, Silvio Martinez Primary Care Physician Encounter [facility] Date(s): 08/19/20 - 09/18/20 [facility] [place] [address] [place] [address]- Allergies, Adverse Reactions, Alerts Substance Reaction Severity [...] capsule, 1 Refills, Maintenance, 10/21/19 11:17:00 EST, [facility] #[id number], 1 capsule By Mouth 3 times a [...] 04/09/21 14:58:00 EDT, 04/09/20 14:57:00 EDT, Tablet, [facility] #[id number], 169, cm, 04/05/20 12:55:00 EDT, Height, 85, [...] tablet, 3 Refills, Maintenance, 05/28/20 11:56:00 EDT, [facility] #[id number], 170, cm, 05/27/20 0:11:00 EDT, Height,90.4, kg, [...] Acute 06/08/21 12:08:00 EDT, 05/03/21 10:04:00 EDT, [facility]/pharmacy #1111, 169, cm, 04/15/20 17:38:00 [...] 0 Refills, Maintenance, 06/18/20 16:48:00 EDT, Tablet, [facility] #[id number], 170, cm, 06/18/20 15:14:00 EDT, Height, 90.4, [...] 11 Refills, Soft Stop, 07/10/20 6:01:00 EDT, [facility] #47107, 170, cm, 07/10/20 2:42:00 EDT, Height, 90.5, kg, 07/09/20 23:20:00 EDT, Dry Weight Start Date: 07/10/20 Status: Ordered Solu-CORTEF 100 mg preservative-free injection = 100 mg, Intramuscular, Once, prn adrenal crisis, # 5 each, 11 Refills, Soft Stop, 05/03/20 16:07:00 EDT, [facility] #[id number], 169, cm, 04/15/20 17:38:00 EDT, Height, 85, [...]
--- OUTSIDE RECORDS SUMMARY | 2024-01-27 11:34 | XMS_ITS | Continuity of Care Document ---
Author Organization [facility] [place] Address [address] [place] [address]- Care Team Providers Care Painter Foreman Name Role Phone Agustín Faria MD Primary Care Physician Encounter [facility] Date(s): 12/21/22 - 01/20/[address] [address]- Allergies, Adverse Reactions, Alerts Substance Reaction Severity [...] 12/31/22 14:22:00 EDT, Route to Pharmacy Electronically, [facility] #[id number], Partial fill upon patient request if the prescription is for a schedule II opi... Start Date: 12/31/22 Status: Ordered Aspirin Low Dose 81 mg oral delayed release tablet 1 tablet, By Mouth, Daily, # 30 tablet, 3 Refills, Maintenance, 08/17/22 15:43:00 EST, [facility] #[id number], 170, cm, 05/13/22 17:18:00 EDT, Height, 88.8, [...] tablet, 4 Refills, Maintenance, 11/11/22 15:10:00 EST, [facility] #[id number], Partial fill upon patient request if the prescription is for a schedule II opioid drug., 170, cm, 05/13/22 17:18:00 ED... Start Date: 11/11/22 Stop Date: 04/10/23 Status: Ordered busPIRone 15 mg oral tablet 1 tablet = 15 mg, By Mouth, 2 times a day, # 60 tablet, 4 Refills, Maintenance, 11/11/22 15:11:00 EST, Tablet, [facility] #[id number], Partial fill upon patient request if the prescription is for a schedule II opioid drug., 170, cm, 05/13/22 17:1... Start Date: 11/11/22 Stop Date: 04/10/23 Status: Ordered famotidine 20 mg oral tablet 20 mg, 1, tablet, By Mouth, 2 times a day, # 180 tablet, Refills 0, Tot. Refills 0, Maintenance, 01/08/21 13:59:00 EDT, Route to Pharmacy Electronically, [facility] #[id number], Partial fill upon patient request if the prescription is for a sched... Start Date: 01/08/21 Status: Ordered Flonase 50 mcg/inh nasal spray 2 sprays, Nares, Both, 2 times a day, PRN Congestion, # 16 Gm, 0 Refills, Maintenance, 08/20/20 11:17:00 EST, [place], [facility] #15195, Partial fill upon patient request if the prescriptionis for a schedule II opioid drug., 170, cm, ... Start Date: 08/20/20 Status: Ordered gabapentin 300 mg oral capsule 300 mg, 1, capsule, By Mouth, 2 times a day, # 60 capsule, Refills 4, Tot. Refills 4, Maintenance, 11/11/22 15:13:00 EST, Route to Pharmacy Electronically, [facility] #[id number], Partial fill upon patient request if the [...] 12/31/22 14:22:00 EDT, Route to Pharmacy Electronically, [facility] #[id number], Partial fill upon patient request if the prescription is for a sched... Start Date: 12/31/22 Stop Date: 12/26/23 Status: Ordered KlonoPIN 1 mg oral tablet 1 tablet = 1 mg, By Mouth, 2 times a day, dose is BID, # 60 tablet, 4 Refills, Maintenance, 11/11/22 15:11:00 EST, [facility] #[id number], NO EARLY REFILLS, 170, cm, 05/13/22 17:18:00 [...] tablet, 0 Refills, Maintenance, 12/31/22 14:21:00 EDT, [facility] #05914, Partial fill upon patient request if the prescription is for a schedule II opioid drug., 170, cm, 12/31/22 13:57:00 ED... Start Date: 12/31/22 Status: Ordered nitroglycerin 0.4 mg sublingual tablet 1 tablet, Sublingual, Every 5 minutes, PRN NEEDED FOR CHEST PAIN MAX 3 DOSES IN 15 MINUTES IF PAIN PERSISTS CALL 911, # 100 tablet, 3 Refills, Maintenance, 12/21/22 11:43:00 EDT, [facility] #[id number], 170, cm, 05/13/22 17:18:00 EDT, Height,... Start Date: 12/21/22 Status: Ordered ondansetron 8 mg oral tablet, disintegrating 1 tablet = 8 mg, By Mouth, 3 times a day, PRN Nausea & Vomiting, # 30 tablet, 0 Refills, Maintenance, 12/26/20 12:55:00 EDT, [facility] #[id number], Partial fill upon patient request if the prescription is for a schedule II opioid drug., 170, cm,... Start Date: 12/26/20 Status: Ordered oxyCODONE 10 mg oral tablet = 10 mg, By Mouth, Every 8 hours, as needed; on a 15/month taper, # 60 tablet, 0 Refills, Maintenance, 03/24/21 11:54:00 EDT, Tablet, [facility] #28613, Partial fill upon patient request ifthe prescription [...] capsule, 4 Refills, Maintenance, 11/11/22 15:17:00 EST, [facility] #[id number], Partial fill upon patient request if the [...] 11/11/22 15:08:00 EST, Route to Pharmacy Electronically, [facility] #[id number], Partial fill upon patient request if the [...] Refills, Soft Stop, 04/20/22 10:54:00 EDT, Powder, [facility] #63313, Partial fill upon patient... Start Date: 04/20/22 Status: Ordered spironolactone 25 mg oral tablet 25 mg, 1, tablet, By Mouth, Daily, # 90 tablet, Refills 3, Tot. Refills 3, Maintenance, 09/13/22 16:11:00 EST, Route to Pharmacy Electronically, [facility] #[id number], Partial fill upon patientrequest if the prescription is for a schedule II op... Start Date: 09/13/22 Stop Date: 09/08/23 Status: Ordered traZODone 150 mg oral tablet 2 tablet = 300 mg, By Mouth, Daily at bedtime, Ins will not cover 300mg, # 60 tablet, 4 Refills, Maintenance, 11/27/22 9:29:00 EST, Tablet, [facility] #[id number], Partial fill upon patient request if the prescription is for a schedule II opioid... Start Date: 11/27/22 Status: Ordered traZODone 300 mg oral tablet 1 tablet = 300 mg, By Mouth, Daily at bedtime, # 30 tablet, 4 Refills, Maintenance, 11/11/22 15:09:00 EST, [facility] #[id number], Partial fill upon patient request if the [...] Team Personnel Name: Daina Ibrahim RN Position: [facility] ED RN W/OE and Tasks Member Role: Primary Care Nurse Name: Madeline Baird RN Position: [facility] ED RN W/OE and Tasks Member Role: Primary Care Nurse Name: Teresa Carpio Position: [facility] RN Member Role: Primary Care Nurse Name: Inge Elizabeth RN Position: [facility] SN RN Member Role: Primary Care Nurse Name: Kelley Prasad RN Position: [facility] RN Member Role: Primary Care Nurse Name: Cindy Medeiros RN Position: [facility] RN Member Role: Primary Care Nurse Name: Linnette De La O RN Position: [facility] PRINTING SHOP SUPERVISOR Member Role: Primary Care Nurse Name: Alina Castillo NP Position: [facility] Associate Professional Member Role: Primary Care Nurse Address: Address: [address] [place] [address]- Name: Mary Anne Kilpatrick RN Position: [facility] MR W/ Merge Member Role: Primary Care Nurse Name: Agustín Faria MD Position: [facility] Outreach Member Role: PCP Address: Address: [address] [facility] [address] [place]ín [place] [address]- Name: Nicole Hernández RN Position: [facility] RN Member Role: Primary Care Nurse Name: Douglas Harris Position: [facility] Cardio/Pulm Mgr ([facility]) Member Role: Primary Care Nurse Name: Lindsay Srinivasan CNM Position: [facility] Invoice Clerk Member Role: Primary Care Nurse Address: Address: [address] [place] [address] [place] [address]- Name: Larissa Klein Position: [facility] RN Member Role: Primary Care Nurse Name: Karen Roa RN Position: [facility] ED RN W/OE and Tasks Member Role: Primary Care Nurse Name: Mary Alice Stevens RN Position: [facility] RN Member Role: Primary Care Nurse Name: Beverly Grey Position: [facility] RN Member Role: Primary Care Nurse Name: Alexy Geronimo RN Position: [facility] RN Member Role: Primary Care Nurse Name: Raúl Rudolph DO Position: [facility] CLAIMS INVESTIGATOR MD Member Role: [employer] CLAIMS INVESTIGATOR Physician Address: Address: [address] [facility] [place] [address]- [place] Name: Evelyn Haynes RN Position: [facility] RN Member Role: Primary Care Nurse Name: Crissy Metzger RN Position: [facility] RN Member Role: Primary Care Nurse Name: Elisa Gilbert RN Position: [facility] RN Member Role: Primary Care Nurse Name: Corina Solorio RN Position: [facility] PCO RN Member Role: Primary Care Nurse Name: Shawnee Lane RN Position: [facility] ED RN W/OE and Tasks Member Role: Primary Care Nurse Name: Erna Douglass RN Position: [facility] SN RN Member Role: Primary Care Nurse Name: Keyana Ndiaye RN Position: [facility] Communications Program Manager Member Role: Primary Care Nurse Name: Yudy Trujillo RN Position: [facility] RN Member Role: Primary Care Nurse Name: Anabella Nicholson RN Position: [facility] AMB Nurse Member Role: Primary Care Nurse Name: Ramona Ybarra RN Position: [facility] RN Member Role: Primary Care Nurse Address: Address: [address] [place] [address]- [place] Name: Nancy Gallagher RN Position: [facility] Communications Program Manager Member Role: Primary Care Nurse Name: Evelyn Allen RN Position: [facility] OB RN Member Role: Primary Care Nurse Name: Jackelin Watt RN Position: [facility] RN Member Role: Primary Care Nurse Name: Raymundo Elizabeth RN Position: [facility] SN RN Member Role: Primary Care Nurse Name: Opal Calderon RN Position: [facility] RN Member Role: Primary Care Nurse Name: Yadiel Warner RN Position: [facility] SN RN Member Role: Primary Care Nurse Care Team Related Persons Name: BARTOLOME IBRAHIM Address: home [address], [place] Name: GIANLUCA IBRAHIM Address: home [address], [place] Name: ABBIE IBRAHIM Address: [address], [place] Name: SIM CERDA Name: DIANE CERDA Address: [address] [address] Name: SOLO CORRIGAN Address: home [address] [place] [address] Name: SOLO FLORES Address: home [address] [place] [address] Name: TRAN RAYMUNDO Address: home [address] [place] [address]
--- OUTSIDE RECORDS SUMMARY | 2024-01-27 11:34 | XMS_ITS | Continuity of Care Document ---
Author Organization [facility] Address [address] [place] [address]- Care Team Providers Care Planer Offbearer Name Role Phone Maranda WILCOX, Silvio Martinez Primary Care Physician Encounter [facility] Date(s): 10/04/20 - 11/03/20 [facility] [address] [place] [address]- Allergies, Adverse Reactions, Alerts Substance Reaction Severity [...] capsule, 1 Refills, Maintenance, 10/21/19 11:17:00 EST, [facility] #[id number], 1 capsule By Mouth 3 times a [...] 04/09/21 14:58:00 EDT, 04/09/20 14:57:00 EDT, Tablet, [facility] #[id number], 169, cm, 04/05/20 12:55:00 EDT, Height, 85, [...] tablet, 3 Refills, Maintenance, 05/28/20 11:56:00 EDT, [facility] #[id number], 170, cm, 05/27/20 0:11:00 EDT, Height,90.4, kg, [...] 3 Refills, Maintenance, 10/16/20 16:21:00 EST, Tablet, [facility] #11004, Partial fill upon patient request if the [...] 0 Refills, Maintenance, 06/18/20 16:48:00 EDT, Tablet, [facility] #80551, 170, cm, 06/18/20 15:14:00 EDT, Height, 90.4, kg, 06/18/20 15:14:00 EDT, Dry Weight Start Date: 06/18/20 Stop Date: 06/25/20 Status: Ordered ondansetron 8 mg oral tablet, disintegrating 1 tablet = 8 mg, By Mouth, 3 times a day, # 10 tablet, 0 Refills, Maintenance, 10/30/20 17:44:00 EST, [facility] #[id number], Partial fill upon patient request if the [...] Refills, Soft Stop, 10/02/20 11:57:00 EST, Powder, [facility] #[id number], Partial fill upon patient... Start Date: 10/02/20 [...]
--- OUTSIDE RECORDS SUMMARY | 2024-01-27 11:34 | XMS_ITS | Continuity of Care Document ---
Author Organization [facility] Address [address] [place] [address]- Care Team Providers Care Helicopter Dispatcher Name Role Phone Silvio Low MD Primary Care Physician Encounter [facility] Date(s): 05/15/20 - 05/15/[address] [address]- [facility] Discharge Disposition: A-D/C Home Attending Physician: Ashish Orozco MD Admitting Physician: Ashish Orozco MD Referring Physician: Not on Staff, Referring [...] mL, Refills 11, Tot. Refills 11, Maintenance, [facility]: [id number], 05/08/20 16:20:00 EDT, Supply, 169, cm, 04/15/20 [...] capsule, 1 Refills, Maintenance, 10/21/19 11:17:00 EST, [facility] #[id number], 1 capsule By Mouth 3 times a [...] 04/09/21 14:58:00 EDT, 04/09/20 14:57:00 EDT, Tablet, [facility] #[id number], 169, cm, 04/05/20 12:55:00 EDT, Height, 85, [...] Acute 04/30/21 16:58:00 EDT, 04/30/20 16:57:00 EDT, [facility] #[id number], 169, cm, 04/15/20 17:38:00 EDT, Height, 85, kg, 03/15/20 2:33:00 EDT, Dry Weight Start Date: 04/30/20 Stop Date: 04/30/21 Status: Ordered methylprednisolone 2 gm injectable powder for injection See Instructions, inject 4 grams IM for adrenal crisis, # 48 Gm, 11 Refills, Acute 06/08/21 12:08:00 EDT, 05/03/21 10:04:00 EDT, [facility]/pharmacy #[id number], 169, cm, 04/15/20 17:38:00 EDT, Height, 85, kg, 03/15/20 2:33:00 EDT, Dry Weight Start Date: 05/03/21 Stop Date: 06/08/21 Status: Ordered methylprednisolone 2 gm injectable powder for injection See Instructions, inject 4 grams IM for adrenal crisis, # 48 Gm, 3 Refills, Acute 05/03/21 10:04:00EDT, 05/03/20 10:03:00 EDT, [facility] #[id number], 169, cm, 04/15/20 17:38:00 EDT, Height, 85, kg, 03/15/20 2:33:00 EDT, Dry Weight Start Date: 05/03/20 Stop Date: 05/03/21 Status: Ordered methylprednisolone 2 gm injectable powder for injection See Instructions, inject 4 grams IM for adrenal crisis, # 48 Gm, 3 Refills, Acute 05/03/21 11:58:00EDT, 05/03/21 10:04:00 EDT, [facility], 169, cm, 04/15/20 17:38:00 [...] 11 Refills, Soft Stop, 05/03/20 16:07:00 EDT, [facility] #[id number], 169, cm, 04/15/20 17:38:00 EDT, Height, 85, [...] Refills, Maintenance, 12/05/19 20:49:00 EDT, DIS Tablet, [facility] #[id number], 170, cm, 12/05/19 19:19:00 EDT, Height, 88.7, [...] Exam Date Time Procedure Performing Provider Status 05/15/20 3:52 PM Finger 3rd Right Hand Kiera Henderson ; Auth (Verified) Notes: (Finger 3rd Right Hand) Reason For Exam: Trauma RESULT: Finger 3rd Right Hand Finger 3rd Right Hand, 3 views Reason: Trauma; Clinical Question(s): Fracture FINDINGS: No fracture or dislocation. Mild degenerative changes at multiple joints. IMPRESSION: No fracture. WSN: [id number] Ordering Physician: Ashish Orozco Dictated By: Sourav Rebollar MD Dictated Date/Time: 05/15/20 3:56 pm Reviewed By: Sourav Rebollar MD Signed By: Sourav Rebollar MD Signed Date/Time: 05/15/20 3:56 pm Transcribed By: DIANE Transcribed Date/Time: 05/15/20 3:54 pm Vital Signs Most recent to oldest [Reference Range]: 1 2 Height 170 cm (05/15/20 3:49 PM) 170 cm (05/15/20 3:32 PM) Weight 89 kg (05/15/20 3:49 PM) 89 kg (05/15/20 3:32 PM) Oxygen Saturation [94-100 %] 99 % (05/15/20 3:32 PM) Pulse Rate [55-90 bpm] 84 bpm (05/15/20 3:32 PM) Body Mass Index [18.5-24.99] 30.8 *>HHI* (05/15/20 3:32 PM) Blood Pressure [90-138/55-84 mm Hg] 138/ 76mm Hg (05/15/20 3:32 PM) Respiratory Rate [16-30 br/min] 16 br/mi n (05/15/20 3:32 PM) Temperature [96.8-100.4 DegF] 98.0 DegF (05/15/20 3:32 PM) Mode of Delivery (Oxygen) Room air (05/15/20 3:32 PM) Blood pressure sites Arm, left (05/15/20 3:32 PM) Temperature Route Temporal (05/15/20 3:32 PM) Dry Weight 89 kg (05/15/20 3:49 PM) 89 kg (05/15/20 3:32 PM) Weight Obtained Via Patient/family state d (05/15/20 3:32 PM) Dry Weight Obtained Via Patient/family s tated (05/15/20 3:32 PM) Social History Social History Type Response Smoking Status 10 or more cigarette s (1/2 pack or more)/day in last 30 days entered on: 08/06/19 Sex
--- OUTSIDE RECORDS SUMMARY | 2024-01-27 11:34 | XMS_ITS | Continuity of Care Document ---
Author Organization [facility] Address [address] [place] [address]- Care Team Providers Care Railway Track Plant Operator Name Role Phone Maranda WILCOX, Silvio Martinez Primary Care Physician Encounter [facility] Date(s): 04/26/20 - 05/26/20 [facility] [address] [place] [address]- [facility] Allergies, Adverse [...] Tot. Refills 11, Maintenance, [facility]: [id number], 05/08/20 16:20:00 EDT, Supply, 169, cm, 04/15/20 [...] capsule, 1 Refills, Maintenance, 10/21/19 11:17:00 EST, [facility] #[id number], 1 capsule By Mouth 3 times a [...] 04/09/21 14:58:00 EDT, 04/09/20 14:57:00 EDT, Tablet, [facility] #[id number], 169, cm, 04/05/20 12:55:00 EDT, Height, 85, [...] Acute 04/30/21 16:58:00 EDT, 04/30/20 16:57:00 EDT, [facility] #[id number], 169, cm, 04/15/20 17:38:00 EDT, Height, 85, kg, 03/15/20 2:33:00 EDT, Dry Weight Start Date: 04/30/20 Stop Date: 04/30/21 Status: Ordered methylprednisolone 2 gm injectable powder for injection See Instructions, inject 4 grams IM for adrenal crisis, # 48 Gm, 11 Refills, Acute 06/08/21 12:08:00 EDT, 05/03/21 10:04:00 EDT, [facility]/pharmacy #[id number], 169, cm, 04/15/20 17:38:00 EDT, Height, 85, kg, 03/15/20 2:33:00 EDT, Dry Weight Start Date: 05/03/21 Stop Date: 06/08/21 Status: Ordered methylprednisolone 2 gm injectable powder for injection See Instructions, inject 4 grams IM for adrenal crisis, # 48 Gm, 3 Refills, Acute 05/03/21 10:04:00EDT, 05/03/20 10:03:00 EDT, [facility] #[id number], 169, cm, 04/15/20 17:38:00 EDT, Height, 85, kg, 03/15/20 2:33:00 EDT, Dry Weight Start Date: 05/03/20 Stop Date: 05/03/21 Status: Ordered methylprednisolone 2 gm injectable powder for injection See Instructions, inject 4 grams IM for adrenal crisis, # 48 Gm, 3 Refills, Acute 05/03/21 11:58:00EDT, 05/03/21 10:04:00 EDT, [facility], 169, cm, 04/15/20 [...] 11 Refills, Soft Stop, 05/03/20 16:07:00 EDT, [facility] #[id number], 169, cm, 04/15/20 17:38:00 EDT, Height, 85, [...] Refills, Maintenance, 12/05/19 20:49:00 EDT, DIS Tablet, [facility] #[id number], 170, cm, 12/05/19 19:19:00 EDT, Height, 88.7, [...]
--- OUTSIDE RECORDS SUMMARY | 2024-01-27 11:35 | XMS_ITS | Continuity of Care Document ---
Author Organization [facility] ter Address [address] [place] [id number]- Care Team Providers Care Content Producer Name Role Phone Bienvenido WILCOX, Agustín Joaquin Primary Care Physician [phone] Encounter [facility] Date(s): 07/09/21 - 07/15/[address] [id number] Encounter Diagnosis Adrenal insufficiency(Final) - 07/09/21 UTI (urinary tract infection)(Final) - 07/09/21 Nephrolithiasis(Final) - 07/09/21 Discharge Disposition: A-D/C Home Attending Physician: Lamar Miller MD Admitting Physician: Brigette WILCOX, Dash Castro Referring Physician: Not on Staff, Referring MD [...] Comment: GIVEN AT PHARM 2Result Comment: manufactuer: goldie 3Admin Note: vis 4Early/Late Reason: Other : [...] 0 Refills, Maintenance, 07/15/21 10:36:00 EDT, Tablet, [facility], Partial fill upon patient request [...] drug. Start Date: 12/30/20 Status: Ordered Dilaudid 2 mg oral tablet 2 mg, Tablet, By Mouth, Every 4 hours, PRN for Pain , Severe, Routine, 07/14/21 14:18:00 EDT Start Date: 07/14/21 Stop Date: 07/15/21 Status: Discontinued Insulin Syringe, BD Ultra-Fine 1 [...] Film Start Date: 08/24/19 Status: Ordered metoprolol 50 mg oral tablet 50 mg, Tablet, By Mouth, 07/15/21 9:00:00 EDT Start Date: 07/15/21 Stop Date: 07/15/21 Status: Completed metoprolol 50 mg oral tablet 50 mg, Tablet, By Mouth, 07/14/21 21:00:00 EDT Start Date: 07/14/21 Stop Date: 07/14/21 Status: Completed ondansetron 8 mg oral tablet, disintegrating 1 tablet = 8 mg, By Mouth, 3 times a day, PRN Nausea & Vomiting, # 30 tablet, 0 Refills, Maintenance, 12/26/20 12:55:00 EDT, [facility] #[id number], Partial fill upon patient request if the prescription is for a schedule II opioid drug., 170, cm,... Start Date: 12/26/20 Status: Ordered oxyCODONE 5 mg oral tablet 5 mg, Tablet, By Mouth, Every 6 hours, PRN for Pain , Mild, Routine, 07/11/21 8:56:00 EDT Start Date: 07/11/21 Stop Date: 07/15/21 Status: Discontinued Potassium Chloride = 40 mEq, By Mouth, 2 times a day, 0 Refills, Maintenance, 01/20/21 5:39:00 EDT, Partial fill upon patient request if the prescription is for a schedule II opioid drug. Start Date: 01/20/21 Status: Ordered prazosin 1 mg oral capsule 4 mg, Capsule, By Mouth, 07/14/21 21:00:00 EDT Start Date: 07/14/21 Stop Date: 07/14/21 Status: Completed Senna = 8.5 mg, By Mouth, 2 times a day, 0 Refills, Maintenance, 11/06/16 11:22:55 Start Date: 11/06/16 Status: Ordered Solu-CORTEF Act-O-Vial 100 mg injection See Instructions, use daily SQ for adrenal insufficiency. 14 mg qam and 7 mg qpm please provide extra 2 mg vial for stress dosing., # 8 each, 11 Refills, Soft Stop, 04/15/21 10:31:00 EDT, Powder, [facility]/pharmacy #[id number], Partial fill upon patient request i... [...] 0 Refills, Maintenance, 01/20/21 7:49:00 EDT, Tablet, [facility] #[id number], Partial fill upon patient request if the [...] Date Time Procedure Performing Provider Status 07/09/21 10:13 AM C-Arm < 1 Hour Ayesha Hernandez h (Verified) Notes: (C-Arm < 1 Hour) Reason For Exam: L STENT PLACEMENT RESULT: C-Arm < 1 Hour Findings/ Impression: 5 fluoroscopic spot images during retrograde ureteropyelography. Left hydronephrosis. Final image demonstrates the distal end of a ureteral stent. Technologist time: 13 minutes Fluoroscopy time: 13 seconds WSN: [id number] Ordering Physician: Bruno Hernandez Dictated By: Bruno Ortiz MD Dictated Date/Time: 07/09/21 4:09 pm Reviewed By: Bruno Ortiz MD Signed By: Bruno Ortiz MD Signed Date/Time: 07/09/21 4:09 pm Transcribed By: DIANE Transcribed Date/Time: 07/09/21 4:08 pm * Exam Date Time Procedure Performing Provider Status 07/09/21 10:13 AM Urethrocystography Retrograde Ayesha Talley (Verified) Notes: (Urethrocystography Retrograde) Reason For Exam: L STENT PLACEMENT RESULT: Urethrocystography Retrograde Findings/ Impression: 5 fluoroscopic spot images during retrograde ureteropyelography. Left hydronephrosis. Final image demonstrates the distal end of a ureteral stent. Technologist time: 13 minutes Fluoroscopy time: 13 seconds WSN: [id number] Ordering Physician: Bruno Hernandez Dictated By: Bruno Ortiz MD Dictated Date/Time: 07/09/21 4:09 pm Reviewed By: Bruno Ortiz MD Signed By: Bruno Ortiz MD Signed Date/Time: 07/09/21 4:09 pm Transcribed By: DIANE Transcribed Date/Time: 07/09/21 4:08 pm Vital Signs Most recent to oldest [Reference Range]: 1 2 3 Weight 77.0 kg 1 (07/09/21 2:00 PM) Oxygen Saturation [94-100 %] 96 % (07/14/21 8:00 PM) 97 % (07/14/21 5:00 PM) 100 % (07/14/21 8:00 AM) Pulse Rate [55-90 bpm] 78 bpm (07/15/21 9:59 AM) 60 bpm (07/14/21 10:18 PM) 60 bpm (07/14/21 8:00 PM) Blood Pressure [90-138/55-84 mm Hg] 108/73mm Hg (07/15/21 9:59 AM) 93/48mm Hg (07/14/21 10:18 PM) 93/48mm Hg (07/14/21 10:11 PM) Respiratory Rate [16-30 br/min] 18 br/min (07/15/21 9:59 AM) 18 br/min (07/15/21 5:58 AM) 18 br/min (07/15/21 1:49 AM) Temperature [96.8-100.4 DegF] 98.5 DegF (07/14/21 8:00 PM) 99.1 DegF (07/14/21 5:00 PM) 98.2 DegF (07/14/21 8:00 AM) Liters per Minute 2 L/min (07/09/21 12:00 PM) 2 L/min (07/09/21 11:45 AM) 2 L/min (07/09/21 11:30 AM) Mode of Delivery (Oxygen) Room air (07/14/21 8:00 PM) Room air (07/14/21 5:00 PM) Room air (07/14/21 8:00 AM) Blood pressure sites Arm, right (07/14/21 8:00 PM) Arm, right (07/14/21 5:00 PM) Arm, right (07/14/21 8:00 AM) Temperature Route Oral (07/14/21 8:00 PM) Oral (07/14/21 5:00 PM) Oral (07/14/21 8:00 AM) 1Result Comment: bedscale Social History Social History Type Response Smoking Status Current every day rowan munoz; Previous treatment: Counseling; Previous treatment: Nicotine replacement; Other: 1/2 ppd x 20 yrs; entered on: 09/16/16 Sex Medical Equipment Implanted Date:07/09/21Target Site:Ureter Description Quantity MRI Company Model STENT STRETCH VL 6FR - BSCI ([id number]) 1 Faves Unknown GO:No Information Assigning Authority: FDA
--- OUTSIDE RECORDS SUMMARY | 2024-01-27 11:35 | XMS_ITS | Continuity of Care Document ---
Author Organization [facility] Address [address] [place] [address]- Care Team Providers Care Composing Machine Operator/Tender Name Role Phone Silvio Low MD Primary Care Physician Encounter [facility] Date(s): 05/26/20 - 05/27/[address] [address] Encounter Diagnosis Back pain(Final) - 05/27/20 Discharge Disposition: A-D/C Home Attending Physician: Kenneth [...] 11, Tot. Refills 11, Maintenance, [facility]: [id number], 05/08/20 16:20:00 EDT, Supply, 169, cm, 04/15/20 [...] capsule, 1 Refills, Maintenance, 10/21/19 11:17:00 EST, [facility] #[id number], 1 capsule By Mouth 3 [...] 04/09/21 14:58:00 EDT, 04/09/20 14:57:00 EDT, Tablet, [facility] #[id number], 169, cm, 04/05/20 12:55:00 EDT, Height, 85, [...] Acute 04/30/21 16:58:00 EDT, 04/30/20 16:57:00 EDT, [facility] #[id number], 169, cm, 04/15/20 17:38:00 EDT, Height, 85, kg, 03/15/20 2:33:00 EDT, Dry Weight Start Date: 04/30/20 Stop Date: 04/30/21 Status: Ordered methylprednisolone 2 gm injectable powder for injection See Instructions, inject 4 grams IM for adrenal crisis, # 48 Gm, 11 Refills, Acute 06/08/21 12:08:00 EDT, 05/03/21 10:04:00 EDT, [facility]/pharmacy #[id number], 169, cm, 04/15/20 17:38:00 EDT, Height, 85, kg, 03/15/20 2:33:00 EDT, Dry Weight Start Date: 05/03/21 Stop Date: 06/08/21 Status: Ordered methylprednisolone 2 gm injectable powder for injection See Instructions, inject 4 grams IM for adrenal crisis, # 48 Gm, 3 Refills, Acute 05/03/21 10:04:00EDT, 05/03/20 10:03:00 EDT, [facility] #[id number], 169, cm, 04/15/20 17:38:00 EDT, Height, 85, kg, 03/15/20 2:33:00 EDT, Dry Weight Start Date: 05/03/20 Stop Date: 05/03/21 Status: Ordered methylprednisolone 2 gm injectable powder for injection See Instructions, inject 4 grams IM for adrenal crisis, # 48 Gm, 3 Refills, Acute 05/03/21 11:58:00EDT, 05/03/21 10:04:00 EDT, [facility], 169, cm, 04/15/20 17:38:00 EDT, Height, 85, kg, 03/15/20 2:33:00 EDT, Dry Weight Start Date: 05/03/21 Stop Date: 05/03/21 Status: Ordered morphine 15 mg oral tablet, immediate release 2 tablet = 30 mg, By Mouth, Every 6 hours, PRN for pain, for 5 days, # 12 tablet, 0 Refills, Acute 06/01/20 4:49:00 EDT, 05/27/20 4:49:00 EDT, Tablet, [facility] #[id number], Partial fill upon patient request, 170, cm, [...] 11 Refills, Soft Stop, 05/03/20 16:07:00 EDT, [facility] #[id number], 169, cm, 04/15/20 17:38:00 EDT, Height, 85, [...] Refills, Maintenance, 12/05/19 20:49:00 EDT, DIS Tablet, [facility] #[id number], 170, cm, 12/05/19 19:19:00 EDT, Height, 88.7, [...] Range]: 1 2 3 Height 170 cm (05/27/20 12:11 AM) Weight 90.4 kg (05/27/20 12:11 AM) Oxygen Saturation [94-100 %] 99 % (05/27/20 5:01 AM) 98 % (05/27/20 4:07 AM) 99 % (05/27/20 2:47 AM) Pulse Rate [55-90 bpm] 67 bpm (05/27/20 5:01 AM) 61 bpm (05/27/20 4:07 AM) 78 bpm (05/27/20 2:47 AM) Blood Pressure [90-138/55-84 mm Hg] 113/80mm Hg (05/27/20 5:01 AM) 115/82mm Hg (05/27/20 4:07 AM) 124/75mm Hg (05/27/20 2:47 AM) Respiratory Rate [16-30 br/min] 16 br/min (05/27/20 5:01 AM) 16 br/min (05/27/20 4:07 AM) 18 br/min (05/27/20 4:05 AM) Temperature [96.8-100.4 DegF] 98 DegF (05/27/20 12:11 AM) Mode of Delivery (Oxygen) Room air (05/27/20 5:01 AM) Room air (05/27/20 4:07 AM) Room air (05/27/20 2:47 AM) Blood pressure sites Arm, left (05/27/20 5:01 AM) Arm, left (05/27/20 4:07 AM) Arm, left (05/27/20 2:47 AM) Temperature Route Oral (05/27/20 12:11 AM) Dry Weight 90.4 kg (05/27/20 12:11 AM) Weight Obtained Via Standing scale (05/27/20 12:11 AM) Social History Social History Type Response Smoking Status 10 or more cigarette s (1/2 pack or more)/day in last 30 days entered on: 08/06/19 Sex
--- OUTSIDE RECORDS SUMMARY | 2024-01-27 11:35 | XMS_ITS | Continuity of Care Document ---
Author Organization [facility] Address [address] [place] [address]- Care Team Providers Care Policy Director Name Role Phone Silvio Low MD Primary Care Physician Encounter [facility] Date(s): 11/20/20 - 11/21/[address] [address]- Discharge Disposition: A-D/C Home Attending Physician: Amos Rod MD Admitting Physician: Amos Rod MD Referring Physician: Not on Staff, Referring [...] capsule, 1 Refills, Maintenance, 10/21/19 11:17:00 EST, [facility] #[id number], 1 capsule By Mouth 3 times a [...] 04/09/21 14:58:00 EDT, 04/09/20 14:57:00 EDT, Tablet, [facility] #[id number], 169, cm, 04/05/20 12:55:00 EDT, Height, 85, [...] tablet, 3 Refills, Maintenance, 05/28/20 11:56:00 EDT, [facility] #[id number], 170, cm, 05/27/20 0:11:00 EDT, Height,90.4, kg, [...] 3 Refills, Maintenance, 10/16/20 16:21:00 EST, Tablet, [facility] #[id number], Partial fill upon patient request if the prescription is for a schedul... Start Date: 10/16/20 Stop Date: 02/13/21 Status: Ordered ondansetron 4 mg oral tablet 1 tablet = 4 mg, By Mouth, Every 8 hours, PRN Nausea & Vomiting, # 20 tablet, 0 Refills, Maintenance, 06/18/20 16:48:00 EDT, Tablet, [facility] #[id number], 170, cm, 06/18/20 15:14:00 EDT, Height, 90.4, kg, 06/18/20 15:14:00 EDT, Dry Weight Start Date: 06/18/20 Stop Date: 06/25/20 Status: Ordered ondansetron 8 mg oral tablet, disintegrating 1 tablet = 8 mg, By Mouth, 3 times a day, # 10 tablet, 0 Refills, Maintenance, 10/30/20 17:44:00 EST, [facility] #[id number], Partial fill upon patient request if the [...] Refills, Soft Stop, 10/02/20 11:57:00 EST, Powder, [facility] #[id number], Partial fill upon patient... Start Date: 10/02/20 [...] Range]: 1 2 3 Height 170 cm (11/20/20 11:23 PM) 170 cm (11/20/20 11:13 PM) 170 cm (11/20/20 9:53 PM) Weight 93 kg (11/20/20:23 PM) 93 kg (11/20/20 11:13 PM) 93 kg (11/20/20 9:53 PM) Oxygen Saturation [94-100 %] 98 % (11/20/20: PM) 99 % (11/20/20 11: PM) 98 % (11/20/20 9:53 PM) Pulse Rate [55-90 bpm] 67 bpm (11/20/20: PM) 67 bpm (11/20/20 11: PM) 78 bpm (11/20/20 9:53 PM) Body Mass Index [18.5-24.99] 32.18 *>HHI* (11/20/20 11:23 PM) 32.18 *>HHI* (11/20/20 11:13 PM) 32.18 *>HHI* (11/20/20 9:53 PM) Blood Pressure [90-138/55-84 mm Hg] 111/75mm Hg (11/20/20:23 PM) 110/80mm Hg (11/20/20 11:13 PM) 105/72mm Hg (11/20/20 9:53 PM) Respiratory Rate [16-30 br/min] 19 br/min (11/20/20 11:23 PM) 18 br/min (11/20/20 11:13 PM) 20 br/min (11/20/20 7:25 PM) Temperature [96.8-100.4 DegF] 98.1 DegF (11/20/20 11:13 PM) 98.3 DegF (11/20/20 7:25 PM) 98.6 DegF (11/20/20 5:11 PM) Mode of Delivery (Oxygen) Room air (11/20/20 11:23 PM) Room air (11/20/20 11:13 PM) Room air (11/20/20 9:53 PM) Blood pressure sites Arm, right (11/20/20 11:23 PM) Arm, right (11/20/20 11:13 PM) Arm, right (11/20/20 9:53 PM) Temperature Route Oral (11/20/20 11:13 PM) Oral (11/20/20 5:11 PM) Dry Weight 93 kg (11/20/20 11:23 PM) 93 kg (11/20/20 11:13 PM) 93 kg (11/20/20 9:53 PM) Social History Social History Type Response Smoking Status 10 or more cigarette s (1/2 pack or more)/day in last 30 days entered on: 08/06/19 Sex
--- OUTSIDE RECORDS SUMMARY | 2024-01-27 11:35 | XMS_ITS | Continuity of Care Document ---
Author Organization [facility] Address [address] [place] [address]- Care Team Providers Care Automotive Sales Representative Name Role Phone Agustín Faria MD Primary Care Physician [id number] Date[facility]s): [facility] - [facility] [address] [place] [address]- [facility] Encounter Diagnosis Panic disorder with agoraphobia(Discharge Diagnosis) - 10/10/19 Attending Physician: Mariella METAL WORK DUCT INSTALLER, Amelia Allergies, Adverse Reactions, Alerts Substance Reaction [...] 02/21/19 8:58:39 EDT, Route to Pharmacy Electronically, [id number], [facility] Start Date: 02/21/19 Stop Date: 04/22/19 [...] 08/24/19 9:15:39 EST, Route to Pharmacy Electronically, [id number], [facility] #[id number], 170, cm, 08/24/19 8:38:44 EST, H... Start [...] 0 Refills, Maintenance, 09/28/19 0:43:00 EST, Tablet, [facility] #[id number], 171, cm, 09/27/19 22:45:00 EST, Height, 92.2, [...] 0 Refills, Soft Stop, 09/28/19 0:51:00 EST, [id number], 171, cm, 09/27/19 22:45:00 EST, Height, 92.2, [...] 02/21/19 8:59:46 EDT, Route to Pharmacy Electronically, [id number], [facility] Start Date: 02/21/19 Stop Date: 09/19/19 [...] Effective Dates Health Status Clinical Service Informant Panic disorder with agoraphobia Discharge Diagnosis 10/10/19 Social History Social History Type Response Smoking Status 10 or more cigarette s (1/2 pack or more)/day in last 30 days entered on: 08/06/19 Sex
--- OUTSIDE RECORDS SUMMARY | 2024-01-27 11:35 | XMS_ITS | Continuity of Care Document ---
Author Organization [facility] Address [address] [place] [address]- Care Team Providers Care Manager Concrete Name Role Phone Dash WILCOX ([place]), Paola Anderson Primary Care Physician Encounter [facility] Date(s): 02/01/23 - 02/01/[address] [address]- Discharge Disposition: A-D/C Home Attending Physician: Kenneth [...] 12/31/22 14:22:00 EDT, Route to Pharmacy Electronically, [facility][id number], Partial fill upon patient request if the prescription is for a schedule II opi... Start Date: 12/31/22 Status: Ordered Aspirin Low Dose 81 mg oral delayed release tablet 1 tablet, By Mouth, Daily, # 30 tablet, 3 Refills, Maintenance, 08/17/22 15:43:00 EST, [facility] #[id number], 170, cm, 05/13/22 17:18:00 EDT, Height, 88.8, [...] 01/08/21 13:59:00 EDT, Route to Pharmacy Electronically, [facility] #[id number], Partial fill upon patient request if the prescription is for a sched... Start Date: 01/08/21 Status: Ordered Flonase 50 mcg/inh nasal spray 2 sprays, Nares, Both, 2 times a day, PRN Congestion, # 16 Gm, 0 Refills, Maintenance, 08/20/20 11:17:00 EST, Rover, [facility] #[id number], Partial fill upon patient request if the prescriptionis for a schedule II opioid drug., 170, cm, ... Start Date: 08/20/20 Status: Ordered gabapentin 300 mg oral capsule 300 mg, 1, capsule, By Mouth, 2 times a day, # 60 capsule, Refills 4, Tot. Refills 4, Maintenance, 11/11/22 15:13:00 EST, Route to Pharmacy Electronically, [facility] #[id number], Partial fill upon patient request if the [...] 12/31/22 14:22:00 EDT, Route to Pharmacy Electronically, [facility] #[id number], Partial fill upon patient request if the prescription is for a sched... Start Date: 12/31/22 Stop Date: 12/26/23 Status: Ordered KlonoPIN 1 mg oral tablet 1 tablet = 1 mg, By Mouth, 2 times a day, dose is BID, # 60 tablet, 4 Refills, Maintenance, 11/11/22 15:11:00 EST, [facility] #[id number], NO EARLY REFILLS, 170, cm, 05/13/22 17:18:00 [...] tablet, 0 Refills, Maintenance, 12/31/22 14:21:00 EDT, [facility] #[id number], Partial fill upon patient request if the prescription is for a schedule II opioid drug., 170, cm, 12/31/22 13:57:00 ED... Start Date: 12/31/22 Status: Ordered nitroglycerin 0.4 mg sublingual tablet 1 tablet, Sublingual, Every 5 minutes, PRN NEEDED FOR CHEST PAIN MAX 3 DOSES IN 15 MINUTES IF PAIN PERSISTS CALL 911, # 100 tablet, 3 Refills, Maintenance, 12/21/22 11:43:00 EDT, [facility] #[id number], 170, cm, 05/13/22 17:18:00 EDT, Height,... Start Date: 12/21/22 Status: Ordered ondansetron 8 mg oral tablet, disintegrating 1 tablet = 8 mg, By Mouth, 3 times a day, PRN Nausea & Vomiting, # 30 tablet, 0 Refills, Maintenance, 12/26/20 12:55:00 EDT, [facility] #[id number], Partial fill upon patient request if the [...] capsule, 4 Refills, Maintenance, 11/11/22 15:17:00 EST, [facility] #[id number], Partial fill upon patient request if the [...] 11/11/22 15:08:00 EST, Route to Pharmacy Electronically, [facility] #[id number], Partial fill upon patient request if the [...] Refills, Soft Stop, 04/20/22 10:54:00 EDT, Powder, [facility] #[id number], Partial fill upon patient... Start Date: 04/20/22 Status: Ordered spironolactone 25 mg oral tablet 25 mg, 1, tablet, By Mouth, Daily, # 90 tablet, Refills 3, Tot. Refills 3, Maintenance, 09/13/22 16:11:00 EST, Route to Pharmacy Electronically, [facility] #[id number], Partial fill upon patientrequest if the prescription is for a schedule II op... Start Date: 09/13/22 Stop Date: 09/08/23 Status: Ordered Toradol Inj 15 mg, Injection, IV Push Slowly, Once, STAT, 02/01/23 5:03:00 EDT, Stop date 02/01/23 5:03:00 EDT Start Date: 02/01/23 Stop Date: 02/01/23 Status: Completed traZODone 300 mg oral tablet 1 tablet = 300 mg, By Mouth, Daily at bedtime, # 30 tablet, 4 Refills, Maintenance, 11/11/22 15:09:00 EST, [facility] #[id number], Partial fill upon patient request if the [...] Exam Date Time Procedure Performing Provider Status 02/01/23 4:19 AM Chest 2 Views Frontal and Lat Yancy Lam; Auth (Verified) Notes: (Chest 2 Views Frontal and Lat) Reason For Exam: Chest Pain;Other: RESULT: Chest 2 Views Frontal and Lat Chest 2 Views Frontal and Lat HX OF PRESENT ILLNESS: Patient experiencing chest pain x 3 hours, too NTG x 3 at home. Now experiencing headache and nausea from nitro, chest pain is unchanged; Reason: Chest pain: COMPARISON: 11/03/2021 FINDINGS: LINES AND TUBES: Dual-lead left subclavian pacer wires are intact. LUNGS AND PLEURA: Clear lungs. Normal pulmonary vascularity. No pleural effusion. No pneumothorax. HEART, MEDIASTINUM AND DAGOBERTO: Heart is normal in size. Normal mediastinal and hilar contour. BONES AND SOFT TISSUES: No acute abnormality. There are surgical clips in the right upper quadrant. IMPRESSION: No evidence of acute abnormality. WSN: [id number] Ordering Physician: Kenneth Baker Dictated By: Aleksandr Murillo MD Dictated Date/Time: 02/01/23 7:40 am Reviewed By: Aleksandr Murillo MD Signed By: Aleksandr Murillo MD Signed Date/Time: 02/01/23 7:40 am Transcribed By: DIANE Transcribed Date/Time: 02/01/23 7:40 am Vital Signs Most recent to oldest [Reference Range]: 1 2 3 Height 170 cm (02/01/23 7:48 AM) 170 cm (02/01/23 3:55 AM) Weight 96 kg (02/01/23 7:48 AM) 96 kg (02/01/23 3:55 AM) Oxygen Saturation [94-100 %] 99 % (02/01/23 7:48 AM) 98 % (02/01/23 5:53 AM) 99 % (02/01/23 4:54 AM) Pulse Rate [55-90 bpm] 76 bpm (02/01/23 7:48 AM) 69 bpm (02/01/23 5:53 AM) 72 bpm (02/01/23 4:54 AM) Body Mass Index [18.5-24.99 kg/m2] 33.22 kg/m2 *>HHI* (02/01/23 7:48 AM) Blood Pressure [90-138/55-84 mm Hg] 108/73mm Hg (02/01/23 7:48 AM) 111/68mm Hg (02/01/23 5:53 AM) 106/70mm Hg (02/01/23 4:54 AM) Respiratory Rate [16-30 br/min] 20 br/min (02/01/23 7:48 AM) 18 br/min (02/01/23 5:53 AM) 16 br/min (02/01/23 5:39 AM) Temperature [96.8-100.4 DegF] 97.9 DegF (02/01/23 3:55 AM) Mode of Delivery (Oxygen) Room air (02/01/23 7:48 AM) Room air (02/01/23 5:53 AM) Room air (02/01/23 3:55 AM) Blood pressure sites Arm, left (02/01/23 7:48 AM) Arm, left (02/01/23 5:53 AM) Arm, left (02/01/23 3:55 AM) Temperature Route Temporal (02/01/23 3:55 AM) Dry Weight 96 kg (02/01/23 7:48 AM) 96 kg (02/01/23 3:55 AM) Social History Social History Type Response [...] Display: ECG 12-Lead Authored Date: Ventricular Rate: 67 BPM Atrial Rate: 67 BPM P-R Interval: 148 ms QRS Duration: 90 ms Q-T Interval: 454 ms QTC Calculation(Bazett): 479 ms P Bradshaw: 33 degrees R Bradshaw: 15 degrees T Bradshaw: 27 degrees Normal sinus rhythm Normal ECG When compared with ECG of 03-NOV-2021 13:35, QT has lengthened Confirmed by LALITA WILLARD MD ([id number]) on 02/01/2023 5:30:45 PM [place]: LALITA WILLARD MD Laboratory * [facility] , CIS S: TRANSCRIBE Aleksandr Murillo MD: VERIFY Event Display: Result: Authored Date: [id number] Chest 2 Views Frontal and Lat HX OF PRESENT ILLNESS: Patient experiencing chest pain x 3 hours, too NTG x 3 at home. Now experiencing headache and nausea from nitro, chest pain is unchanged; Reason: Chest pain: COMPARISON: 11/03/2021 FINDINGS: LINES AND TUBES: Dual-lead left subclavian pacer wires are intact. LUNGS AND PLEURA: Clear lungs. Normal pulmonary vascularity. No pleural effusion. No pneumothorax. HEART, MEDIASTINUM AND DAGOBERTO: Heart is normal in size. Normal mediastinal and hilar contour. BONES AND SOFT TISSUES: No acute abnormality. There are surgical clips in the right upper quadrant. IMPRESSION: No evidence of acute abnormality. WSN: [id number] Ordering Physician: Kenneth Baker Dictated By: Aleksandr Murillo MD Dictated Date/Time: 02/01/23 7:40 am Reviewed By: Aleksandr Murillo MD Signed By: Aleksandr Murillo MD Signed Date/Time: 02/01/23 7:40 am Transcribed By: CSCyril Transcribed Date/Time: 02/01/23 7:40 am Patient Care team information Care Team Personnel Name: Dash WILCOX ([place]) , Paola Anderson Position: Reference Physician Member Role: PCP Address: Address: [address] [place] [id number] [place] Name: Daina Ibrahim RN Position: [facility] ED RN W/OE and Tasks Member Role: Primary Care Nurse Name: Madeline Baird RN Position: [facility] ED RN W/OE and Tasks Member Role: Primary Care Nurse Name: Teresa Carpio Position: S RN Member Role: Primary Care Nurse Name: Inge Elizabeth RN Position: [facility] RN Member Role: Primary Care Nurse Name: Kelley Prasad RN Position: [facility] RN Member Role: Primary Care Nurse Name: Cindy Medeiros RN Position: [facility] RN Member Role: Primary Care Nurse Name: Linnette De La O RN Position: [facility] MERCURY CRACKING TESTER Member Role: Primary Care Nurse Name: Alina Castillo NP Position: [facility] Associate Professional Member Role: Primary Care Nurse Address: Address: [address] [facility] [place] [address]- [place] Name: Mary Anne Kilpatrick RN Position: [facility] MR W/ Merge Member Role: Primary Care Nurse Name: Nicole Hernández RN Position: [facility] RN Member Role: Primary Care Nurse Name: Douglas Harris Position: [facility] Cardio/Pulm Mgr ([facility]) Member Role: Primary Care Nurse Name: Lindsay Srinivasan CNM Position: [facility] Chalk Molding Machine Operator Member Role: Primary Care Nurse Address: Address: [address] [facility] [address]- [place] Name: Larissa Klein Position: [facility] RN Member Role: Primary Care Nurse Name: Karen Roa RN Position: [facility] ED RN W/OE and Tasks Member Role: Primary Care Nurse Name: Mary Alice Stevens RN Position: [facility] RN Member Role: Primary Care Nurse Name: Beverly Grey Position: [facility] RN Member Role: Primary Care Nurse Name: Alexy Geronimo RN Position: [facility] RN Member Role: Primary Care Nurse Name: Raúl Rudolph DO Position: [facility] PHARMACY TECHNICIAN MD Member Role: Lifetime PHARMACY TECHNICIAN Physician Address: Address: [address] [place] [address] [place] [address]- [place] Name: Evelyn Haynes RN Position: [facility] RN Member Role: Primary Care Nurse Name: Crissy Metzger RN Position: [facility] RN Member Role: Primary Care Nurse Name: Elisa Gilbert RN Position: [facility] RN Member Role: Primary Care Nurse Name: Corina Solorio RN Position: [facility] PCO RN Member Role: Primary Care Nurse Name: Shawnee Lane RN Position: [facility] ED RN W/OE and Tasks Member Role: Primary Care Nurse Name: Erna Douglass RN Position: [facility] SN RN Member Role: Primary Care Nurse Name: Keyana Ndiaye RN Position: [facility] Cold Header Member Role: Primary Care Nurse Name: Yudy Trujillo RN Position: [facility] RN Member Role: Primary Care Nurse Name: Anabella Nicholson RN Position: [facility] AMB Nurse Member Role: Primary Care Nurse Name: Ramona Ybarra RN Position: [facility] RN Member Role: Primary Care Nurse Address: Address: [address] [place] [id number]- Name: Nancy Gallagher RN Position: [facility] Cold Header Member Role: Primary Care Nurse Name: Evelyn Allen RN Position: [facility] OB RN Member Role: Primary Care Nurse Name: Jackelin Watt RN Position: [facility] RN Member Role: Primary Care Nurse Name: Raymundo Elizabeth RN Position: [facility] SN RN Member Role: Primary Care Nurse Name: Opal Calderon RN Position: [facility] RN Member Role: Primary Care Nurse Name: Yadiel Warner RN Position: [facility] SN RN Member Role: Primary Care Nurse Name: Lori Schmitz Position: [facility] ED TA [facility] Name: Mani Bustamante RN Position: [facility] ED RN W/OE and Tasks Member Role: Patient Care Provider Name: Kenneth Baker DO Position: [facility] ED Medicine MD Member Role: Admitting Physician Address: Address: [address] [place] [address] [place] [address]- Care Team Related Persons Name: BARTOLOME IBRAHIM Address: home [address] [place], [place] Name: GIANLUCA IBRAHIM Address: [address] [place], [place] Name: ABBIE IBRAHIM Address: home [address] [place] [address] Name: SIM CERDA Name: DIANE CERDA Address: home [address] [place] [address] Name: SOLO CORRIGAN Address: [address] [place], [place] Name: SOLO FLORES Address: [address] [place], [place] Name: RAYMUNDO MAYFIELD Address: home [address] [place] [address]
--- OUTSIDE RECORDS SUMMARY | 2024-01-27 11:35 | XMS_ITS | Continuity of Care Document ---
Author Organization [facility] Address [address] [place] [address]- Care Team Providers Care Clinical Informatics Educator Name Role Phone Silvio Low MD Primary Care Physician Encounter [facility] Date(s): 09/13/20 - 09/14/[address] [address]- Discharge Disposition: A-D/C Home Attending Physician: Alexander Whatley MD Admitting Physician: Alexander Whatley MD Referring Physician: Not on Staff, Referring [...] capsule, 1 Refills, Maintenance, 10/21/19 11:17:00 EST, [facility] #[id number], 1 capsule By Mouth 3 times a [...] 04/09/21 14:58:00 EDT, 04/09/20 14:57:00 EDT, Tablet, [facility] #[id number], 169, cm, 04/05/20 12:55:00 EDT, Height, 85, [...] tablet, 3 Refills, Maintenance, 05/28/20 11:56:00 EDT, [facility] #[id number], 170, cm, 05/27/20 0:11:00 EDT, Height,90.4, kg, [...] 0 Refills, Maintenance, 06/18/20 16:48:00 EDT, Tablet, [facility] #[id number], 170, cm, 06/18/20 15:14:00 EDT, Height, 90.4, kg, 06/18/20 15:14:00 EDT, Dry Weight Start Date: 06/18/20 Stop Date: 06/25/20 Status: Ordered ondansetron 4 mg oral tablet, disintegrating 1 tablet = 4 mg, By Mouth, Every 8 hours, PRN Nausea & Vomiting, # 20 tablet, 0 Refills, Acute 09/18/20 3:45:00 EST, 09/14/20 2:02:00 EST, Tablet, [facility] #[id number], Partial fill upon patient request if the prescription is for a schedule II... Start Date: 09/14/20 Stop Date: 09/18/20 Status: Ordered Polymyxin B Ophthalmic See Instructions, 0 Refills, Maintenance, 03/08/20 20:05:00 EDT Start Date: 03/08/20 Status: Ordered Senna = 8.5 mg, By Mouth, 2 times a day, 0 Refills, Maintenance, 11/06/16 11:22:55 Start Date: 11/06/16 Status: Ordered Solu-CORTEF 100 mg preservative-free injection = 100 mg, Intramuscular, Once, prn adrenal crisis, # 5 each, 11 Refills, Soft Stop, 07/10/20 6:01:00 EDT, [facility] #[id number], 170, cm, 07/10/20 2:42:00 EDT, Height, 90.5, kg, 07/09/20 23:20:00 EDT, Dry Weight Start Date: 07/10/20 Status: Ordered Solu-CORTEF 100 mg preservative-free injection = 100 mg, Intramuscular, Once, prn adrenal crisis, # 5 each, 11 Refills, Soft Stop, 05/03/20 16:07:00 EDT, [facility] #[id number], 169, cm, 04/15/20 17:38:00 EDT, Height, 85, [...] Refills, Maintenance, 12/05/19 20:49:00 EDT, DIS Tablet, [facility] #[id number], 170, cm, 12/05/19 19:19:00 EDT, Height, 88.7, [...] [Reference Range]: 1 2 Height 170 cm (09/14/20 2:00 AM) 170 cm (09/14/20 12:06 AM) Weight 95.4 kg (09/14/20 2:00 AM) 95.4 kg (09/14/20 12:06 AM) Oxygen Saturation [94-100 %] 97 % (09/14/20 2:00 AM) 97 % (09/14/20 12:06 AM) Pulse Rate [55-90 bpm] 66 bpm (09/14/20 2:00 AM) 88 bpm (09/14/20 12:06 AM) Body Mass Index [18.5-24.99] 33.01 *>HHI* (09/14/20 2:00 AM) Blood Pressure [90-138/55-84 mm Hg] 131/ 81mm Hg (09/14/20 2:00 AM) 160/88mm Hg *H* (09/14/20 12:06 AM) Respiratory Rate [16-30 br/min] 16 br/mi n (09/14/20 2:00 AM) 16 br/min (09/14/20 12:06 AM) Temperature [96.8-100.4 DegF] 98.6 DegF (09/14/20 12:06 AM) Mode of Delivery (Oxygen) Room air (09/14/20 2:00 AM) Room air (09/14/20 12:06 AM) Blood pressure sites Arm, left (09/14/20 2:00 AM) Arm, left (09/14/20 12:06 AM) Temperature Route Oral (09/14/20 12:06 AM) Dry Weight 95.4 kg (09/14/20 2:00 AM) 95.4 kg (09/14/20 12:06 AM) Weight Obtained Via Standing scale (09/14/20 12:06 AM) Dry Weight Obtained Via Standing scale (09/14/20 12:06 AM) Social History Social History Type Response Smoking Status 10 or more cigarette s (1/2 pack or more)/day in last 30 days entered on: 08/06/19 Sex
--- OUTSIDE RECORDS SUMMARY | 2024-01-27 11:35 | XMS_ITS | Continuity of Care Document ---
Author Organization [facility] Address [address] [place] [address]- Care Team Providers Care Business Unit Manager Name Role Phone Maranda WILCOX, Silvio Martinez Primary Care Physician Encounter [facility] Date(s): 12/26/20 - 01/25/21 [facility] [address] [place] [address]- Allergies, Adverse Reactions, Alerts Substance Reaction Severity [...] tablet, 0 Refills, Maintenance, 12/26/20 12:55:00 EDT, [facility] #[id number], Partial fill upon patient request if the prescription is for a schedule II opioid drug., 170, cm,... Start Date: 12/26/20 Status: Ordered Potassium Chloride = 40 mEq, By Mouth, 2 times a day, 0 Refills, Maintenance, 01/20/21 5:39:00 EDT, Partial fill upon patient request if the prescription is for a schedule II opioid drug. Start Date: 01/20/21 Status: Ordered Potassium Chloride (Rzp-Jiqh-Cxk M20) 20 mEq oral tablet, extended release 1 tablet = 20 mEq, By Mouth, 2 times a day, # 10 tablet, 0 Refills, Maintenance, 01/20/21 7:48:00 EDT, [facility] #[id number], Partial fill upon patient request if the [...] Refills, Soft Stop, 10/02/20 11:57:00 EST, Powder, [facility] #[id number], Partial fill upon patient... Start Date: 10/02/20 [...] 0 Refills, Maintenance, 01/20/21 7:49:00 EDT, Tablet, [facility] #[id number], Partial fill upon patient request if the [...]
--- OUTSIDE RECORDS SUMMARY | 2024-01-27 11:35 | XMS_ITS | Continuity of Care Document ---
Author Organization [facility] Address [address] [place] [address]- Care Team Providers Care Clinical Account Executive Name Role Phone Maranda WILCOX, Silvio Martinez Primary Care Physician Encounter [facility] Date(s): 01/20/21 - 01/20/[address] [address]- Discharge Disposition: A-D/C Home Attending Physician: Ashish Orozco MD Admitting Physician: Ashish Orozco MD Referring Physician: Not on Staff, Referring MD Allergies, Adverse Reactions, Alerts Substance Reaction Severity Status propranolol Rash Active Compazine severe anxiety Hives Active Xarelto [...] tablet, 0 Refills, Maintenance, 12/26/20 12:55:00 EDT, [facility] #[id number], Partial fill upon patient request if the prescription is for a schedule II opioid drug., 170, cm,... Start Date: 12/26/20 Status: Ordered Potassium Chloride = 40 mEq, By Mouth, 2 times a day, 0 Refills, Maintenance, 01/20/21 5:39:00 EDT, Partial fill upon patient request if the prescription is for a schedule II opioid drug. Start Date: 01/20/21 Status: Ordered Potassium Chloride (Vxr-Gqim-Hkg M20) 20 mEq oral tablet, extended release 1 tablet = 20 mEq, By Mouth, 2 times a day, # 10 tablet, 0 Refills, Maintenance, 01/20/21 7:48:00 EDT, [facility] #[id number], Partial fill upon patient request if the [...] Refills, Soft Stop, 10/02/20 11:57:00 EST, Powder, [facility] #[id number], Partial fill upon patient... Start Date: 10/02/20 [...] 0 Refills, Maintenance, 01/20/21 7:49:00 EDT, Tablet, [facility] #[id number], Partial fill upon patient request if the [...] oldest [Reference Range]: 1 2 3 Height 170.18 cm (01/20/21 10:21 AM) 170.18 cm (01/20/21 8:07 AM) 170.18 cm (01/20/21 5:33 AM) Weight 79.5 kg (01/20/21 10:21 AM) 79.5 kg (01/20/21 8:07 AM) 79.5 kg (01/20/21:33 AM) Oxygen Saturation [94-100 %] 100 % (01/20/21 10:21 AM) 97 % (01/20/21 8:07 AM) 100 % (01/20/21:33 AM) Pulse Rate [55-90 bpm] 81 bpm (01/20/21 10:21 AM) 62 bpm (01/20/21 8:07 AM) 90 bpm (01/20/21:33 AM) Body Mass Index [18.5-24.99] 27.45 *H* (01/20/21 10:21 AM) 27.45 *H* (01/20/21 8:07 AM) Blood Pressure [90-138/55-84 mm Hg] 124/76mm Hg (01/20/21 10:21 AM) 136/82mm Hg (01/20/21 8:07 AM) 154/91mm Hg *H* (01/20/21 5:33 AM) Respiratory Rate [16-30 br/min] 18 br/min (01/20/21 10:21 AM) 16 br/min (01/20/21 8:07 AM) 16 br/min (01/20/21:33 AM) Temperature [96.8-100.4 DegF] 97.5 DegF (01/20/21 5:33 AM) Mode of Delivery (Oxygen) Room air (01/20/21 10:21 AM) Room air (01/20/21 8:07 AM) Room air (01/20/21 5:33 AM) Blood pressure sites Arm, right (01/20/21 5:33 AM) Temperature Route Temporal (01/20/21 5:33 AM) Dry Weight 79.5 kg (01/20/21 10:21 AM) 79.5 kg (01/20/21 8:07 AM) 79.5 kg (01/20/21 5:33 AM) Weight Obtained Via Standing scale (01/20/21 5:33 AM) Dry Weight Obtained Via Standing scale (01/20/21 5:33 AM) Social History Social History Type Response Smoking Status Current every day rowan munoz; Previous treatment: Counseling; Previous treatment: Nicotine replacement; Other: 1/2 ppd x 20 yrs; entered on: 09/16/16 Sex
--- OUTSIDE RECORDS SUMMARY | 2024-01-27 11:35 | XMS_ITS | Continuity of Care Document ---
Author Organization [facility] Address [address] [place] [address]- Care Team Providers Care Pipe Welder Name Role Phone Maranda WILCOX, Silvio Martinez Primary Care Physician Encounter [facility] Date(s): 01/22/21 - 02/21/21 [facility] [address] [place] [address]- Attending Physician: AdmMaximo diaz Admitting Physician: AdmtrMaximo [...] tablet, 0 Refills, Maintenance, 12/26/20 12:55:00 EDT, [facility] #[id number], Partial fill upon patient request if the prescription is for a schedule II opioid drug., 170, cm,... Start Date: 12/26/20 Status: Ordered Potassium Chloride = 40 mEq, By Mouth, 2 times a day, 0 Refills, Maintenance, 01/20/21 5:39:00 EDT, Partial fill upon patient request if the prescription is for a schedule II opioid drug. Start Date: 01/20/21 Status: Ordered Potassium Chloride (Ygv-Zcpg-Jrm M20) 20 mEq oral tablet, extended release 1 tablet = 20 mEq, By Mouth, 2 times a day, # 10 tablet, 0 Refills, Maintenance, 01/20/21 7:48:00 EDT, [facility] #[id number], Partial fill upon patient request if the [...] Refills, Soft Stop, 10/02/20 11:57:00 EST, Powder, [facility] #[id number], Partial fill upon patient... Start Date: 10/02/20 [...] 0 Refills, Maintenance, 01/20/21 7:49:00 EDT, Tablet, [facility] #[id number], Partial fill upon patient request if the [...]
--- OUTSIDE RECORDS SUMMARY | 2024-01-27 11:35 | XMS_ITS | Continuity of Care Document ---
Author Organization [facility] Address [address] [place] [address]- Care Team Providers Care Groundman/Lineman Name Role Phone Dash WILCOX (PR), Paola Anderson Primary Care Physician [facility]counter [facility] Date(s): 10/13/23 - 10/13/[address] [address]- Discharge Disposition: A-D/C Home Attending Physician: Sourav Brownlee MD Admitting Physician: Soruav Brownlee MD Referring Physician: Not on Staff, [...] 0 Refills, Maintenance, 07/15/23 11:42:00 EDT, Tablet, [facility] #[id number], Partial fill upon patient request if the [...] 4 Refills, Maintenance, 08/10/23 14:21:00 EST, Tablet, [facility] #[id number], Partial fill upon patient request if the prescription is fora schedule II opioid drug., 170, cm, 08/05/23 3:21:... Start Date: 08/10/23 Stop Date: 01/07/24 Status: Ordered Metoprolol Tartrate 100 mg oral tablet 1 tablet, By Mouth, 2 times a day, # 60 tablet, 4 Refills, Maintenance, 10/11/23 9:06:00 EST, [facility] #[id number], 170, cm, 09/26/23 11:43:00 EST, Height, 93, kg, 09/26/23 11:43:00 EST, Dry Weight Start Date: 10/11/23 Status: Ordered montelukast 10 mg oral tablet 10 mg, 1, tablet, By Mouth, Daily in PM, Maintenance, 08/18/23 8:47:00 EST Start Date: 08/18/23 Status: Ordered MorPHINE Inj 4 mg, Injection, IV Push Slowly, Once, STAT, 10/13/23 11:11:00 EST, Stop date 10/13/23 11:11:00 EST Start Date: 10/13/23 Stop Date: 10/13/23 Status: Completed MorPHINE Inj 4 mg, Injection, IV Push Slowly, Once, STAT, 10/13/23 13:15:00 EST, Stop date 10/13/23 13:15:00 EST Start Date: 10/13/23 Stop Date: 10/13/23 Status: Completed ondansetron 4 mg oral tablet, disintegrating 2 tablet = 8 mg, By Mouth, Every 8 hours, PRN Nausea & Vomiting, # 1 tablet, 0 Refills, Maintenance, 05/13/23 10:33:00 EDT, Tablet, [facility] #[id number], Partial fill upon patient request if the prescription is for a schedule II opioid drug., 1... Start Date: 05/13/23 Stop Date: 05/16/23 Status: Ordered ondansetron 4 mg oral tablet, disintegrating 1 tablet = 4 mg, By Mouth, Every 6 hours, PRN as needed for nausea/vomiting, # 14 tablet, 0 Refills, Maintenance, 10/13/23 13:52:00 EST, DIS Tablet, [facility] #[id number], Partial fill upon patient request if the prescription is for a schedule I... Start Date: 10/13/23 Status: Ordered oxyCODONE 5 mg oral tablet 5 mg, 1, tablet, By Mouth, Every 6 hours, PRN, # 16 tablet, Refills 0, Tot. Refills 0, Acute 10/21/23 13:52:00 EST, as needed for pain, 10/13/23 13:52:00 EST, Route to Pharmacy Electronically, [facility] #[id number], Partial fill upon patient req... Start Date: 10/13/23 Stop Date: 10/21/23 Status: Ordered potassium chloride 10 mEq oral tablet, extended release 2 tablet = 20 mEq, By Mouth, Daily, # 14 tablet, 0 Refills, Soft Stop, 08/27/23 8:49:00 EST, ER Tablet, [facility] #[id number], Partial fill upon patient request [...] capsule, 4 Refills, Maintenance, 08/10/23 14:14:00 EST, [facility] #[id number], Partial fill upon patient request if the [...] Refills, Soft Stop, 05/27/23 14:16:00 EDT, Powder, [facility] #[id number], Partial fill upon patient... Start Date: 05/27/23 Status: Ordered spironolactone 25 mg oral tablet 1, tablet, By Mouth, Daily, # 30 tablet, Refills 0, Maintenance, 09/10/23 16:43:00 EST, Route to Pharmacy Electronically, [facility] #[id number], 170, cm, 08/27/23 7:32:00 EST, Height, 99, kg, 08/18/23 9:13:00 EST, Dry Weight Start Date: 09/10/23 Status: Ordered Wellbutrin SR 100 mg/12 hours oral tablet, extended release 1 tablet = 100 mg, By Mouth, Daily, # 30 tablet, 4 Refills, Maintenance, 08/10/23 14:26:00 EST, [facility] #[id number], Partial fill upon patient request if the [...] 2Problem added by Discern Expert 3IAROGENIC Results Radiology Reports * Exam Date Time Procedure Performing Provider Status 10/13/23 12:09 PM Chest 2 Views Frontal and Lat Bruno Florentino; Auth (Verified) Notes: (Chest 2 Views Frontal and Lat) Reason For Exam: chest pain;Other: RESULT: Chest 2 Views Frontal and Lat Chest 2 Views Frontal and Lat HX OF PRESENT ILLNESS: pt reports 2-3 days of chest pain radiating to luq of abd. hx mi and pancreatitis. also has a pacemaker. reporting associated nausea and mild sob.; Reason: Other:; chest pain; Clinical Question(s): CHF / CHF COMPARISON: 09/26/2023 FINDINGS: LINES AND TUBES: Dual-lead left subclavian pacer wires are intact. LUNGS AND PLEURA: Clear lungs. Normal pulmonary vascularity. No pleural effusion. No pneumothorax. HEART, MEDIASTINUM AND DAGOBERTO: Heart is normal in size. Normal mediastinal and hilar contour. BONES AND SOFT TISSUES: No acute abnormality. There are surgical clips in the right upper quadrant. IMPRESSION: No evidence of acute abnormality. WSN: [id number] Ordering Physician: Sourav Brownlee Dictated By: Aleksandr Murillo MD Dictated Date/Time: 10/13/23 12:19 p Reviewed By: Aleksandr Murillo MD Signed By: Aleksandr Murillo MD Signed Date/Time: 10/13/23 12:19 pm Transcribed By: DIANE Transcribed Date/Time: 10/13/23 12:18 pm Vital Signs Most recent to oldest [Reference Range]: 1 2 3 Height 170 cm (10/13/23 12:59 PM) 170 cm (10/13/23 11:39 AM) Weight 92.8 kg (10/13/23 11:39 AM) Oxygen Saturation [94-100 %] 98 % (10/13/23 12:59 PM) 97 % (10/13/23 10:46 AM) Pulse Rate [55-90 bpm] 60 bpm (10/13/23 12:59 PM) 76 bpm (10/13/23 10:46 AM) Blood Pressure [90-138/55-84 mm Hg] 108/69mm Hg (10/13/23 12:59 PM) 123/77mm Hg (10/13/23 10:46 AM) Respiratory Rate [16-30 br/min] 18 br/min (10/13/23 1:18 PM) 11 br/min *L* (10/13/23 12:59 PM) 18 br/min (10/13/23 11:43 AM) Temperature [96.8-100.4 DegF] 98.0 DegF (10/13/23 10:46 AM) Mode of Delivery (Oxygen) Room air (10/13/23 12:59 PM) Room air (10/13/23 10:46 AM) Blood pressure sites Arm, right (10/13/23 12:59 PM) Arm, right (10/13/23 10:46 AM) Temperature Route Oral (10/13/23 10:46 AM) Dry Weight 92.8 kg (10/13/23 11:39 AM) Social History Social History Type Response [...] Display: ECG 12-Lead Authored Date: Ventricular Rate: 70 BPM Atrial Rate: 70 BPM P-R Interval: 120 ms QRS Duration: 78 ms Q-T Interval: 426 ms QTC Calculation(Bazett): 460 ms P Stanton: 27 degrees R Stanton: 23 degrees T Stanton: 36 degrees Normal sinus rhythm Normal ECG When compared with ECG of 26-SEP-2023 07:41, No significant change was found Confirmed by LALITA WILLARD MD ([id number]) on 10/13/2023 7:52:05 PM [place]: LALITA WILLARD MD Note * Sourav Brownlee MD: PERFORM, SIGN, VERIFY Event Display: Patient Education Handout Authored Date: [id number] * Sourav Brownlee MD: PERFORM Event Display: Patient Education Leaflets Authored Date: [id number] Unknown Causes of Abdominal Pain(Adult) ?? [id number] Unknown Causes of Abdominal Pain(Adult) The exact [...] period ?? Last Reviewed Date: 2021 ?? [id number] [employer]. All rights reserved. This information is not intended as a substitute for professional medical care. Always follow your healthcare professional's instructions. ?? Patient Care team information Care Team Personnel Name: Dash WILCOX (PR) , Paola Anderson Position: [facility] Outreach Member Role: PCP Address: Address: [address] [place] [id number] Name: Daina Ibrahim RN Position: [facility] ED RN W/OE and Tasks Member Role: Primary Care Nurse Name: Madeline Baird RN Position: [facility] ED RN W/OE and Tasks Member Role: Primary Care Nurse Name: Teresa Carpio Position: [facility] RN Member Role: Primary Care Nurse Name: Inge Elizabeth RN Position: [facility] SN RN Member Role: Primary Care Nurse Name: Kelley Prasad RN Position: [facility] ED RN W/OE and Tasks Member Role: Primary Care Nurse Name: Cindy Medeiros RN Position: [facility] RN Member Role: Primary Care Nurse Name: Linnette De La O RN Position: [facility] FOCUSED FACTORY MANAGER Member Role: Primary Care Nurse Name: Alina Castillo NP Position: [facility] Associate Professional Member Role: Primary Care Nurse Address: Address: [address] [place] [phone]- [place] Name: Mary Anne Kilpatrick RN Position: [facility] MR W/ Merge Member Role: Primary Care Nurse Name: Nicole Hernández RN Position: [facility] RN Member Role: Primary Care Nurse Name: Lindsay Srinivasan CNM Position: [facility] Cable Placer Member Role: Primary Care Nurse Address: Address: [address] [place] [phone]- Name: Kiana Sabillon RN Position: [facility] RN Member Role: Primary Care Nurse Name: Larissa Olson [place] Position: [facility] RN Member Role: Primary Care Nurse Name: Karen Roa RN Position: [facility] ED RN W/OE and Tasks Member Role: Primary Care Nurse Name: Mary Alice Stevens RN Position: [facility] RN Member Role: Primary Care Nurse Name: Beverly Grey Position: [facility] RN Member Role: Primary Care Nurse Name: Alexy Geronimo RN Position: [facility] ED RN W/OE and Tasks Member Role: Primary Care Nurse Name: Raúl Rudolph DO Position: [facility] BEHAVIORAL GENETICIST MD Member Role: Lifetime BEHAVIORAL GENETICIST Physician Address: Address: [address] [place] [id number]- Name: Evelyn Haynes RN Position: [facility] RN Member Role: Primary Care Nurse Name: Crissy Metzger RN Position: [facility] RN Member Role: Primary Care Nurse Name: Elisa Gilbert RN Position: [facility] RN Member Role: Primary Care Nurse Name: Corina Solorio RN Position: [facility] AMB Nurse Member Role: Primary Care Nurse Name: Shawnee Lane RN Position: [facility] ED RN W/OE and Tasks Member Role: Primary Care Nurse Name: Ana Estrada RN Position: [facility] RN Member Role: Primary Care Nurse Name: Erna Douglass RN Position: [facility] SN RN Member Role: Primary Care Nurse Name: Keyana Ndiaye RN Position: [facility] Credit Card Clerk Member Role: Primary Care Nurse Name: Anabella Nicholson RN Position: [facility] AMB Nurse Member Role: Primary Care Nurse Name: Brenda Tomas RN Position: [facility] Outreach Member Role: Primary Care Nurse Name: Ramona Ybarra RN Position: [facility] RN Member Role: Primary Care Nurse Address: Address: [address] [place] [id number] Name: Nancy Gallagher RN Position: [facility] Credit Card Clerk Member Role: Primary Care Nurse Name: Evelyn Allen RN Position: [facility] OB RN Member Role: Primary Care Nurse Name: Jackelin Watt RN Position: [facility] RN Member Role: Primary Care Nurse Name: Raymundo Elizabeth RN Position: [facility] SN RN Member Role: Primary Care Nurse Name: Opal Calderon RN Position: [facility] RN Member Role: Primary Care Nurse Name: Timmy RNYadiel Position: [facility] SN RN Member Role: Primary Care Nurse Care Team Related Persons Name: BARTOLOME IBRAHIM Address: [address], [place] Name: GIANLUCA IBRAHIM Address: [address] [place] [address] Name: ABBIE IBRAHIM Address: [address] [place] [address] Name: SIM CERDA Name: DIANE CERDA Address: [address] [place] [address] Name: SOLO CORRIGAN Address: [address] [place] [address] Name: SOLO FLORES Address: [address] [place], [place] Name: RAYMUNDO MAYFIELD Address: [address] [place] [address]
--- OUTSIDE RECORDS SUMMARY | 2024-01-27 11:35 | XMS_ITS | Continuity of Care Document ---
Author Organization [facility] Address [address] [place] [address]- Care Team Providers Care Gate Supervisor Name Role Phone Maranda WILCOX, Silvio Martinez Primary Care Physician Encounter [facility] Date(s): 01/22/21 - 02/21/21 [facility] [address] [place] [id number] Allergies, Adverse Reactions, Alerts Substance Reaction Severity [...] labs sent to Dr Low and Dr Yoseph Madison Hussan, 01/04/21 12:09:00 EDT, Supply, 170, cm, 01/02/21 [...] tablet, 0 Refills, Maintenance, 12/26/20 12:55:00 EDT, [facility] #[id number], Partial fill upon patient request if the prescription is for a schedule II opioid drug., 170, cm,... Start Date: 12/26/20 Status: Ordered Potassium Chloride = 40 mEq, By Mouth, 2 times a day, 0 Refills, Maintenance, 01/20/21 5:39:00 EDT, Partial fill upon patient request if the prescription is for a schedule II opioid drug. Start Date: 01/20/21 Status: Ordered Potassium Chloride (Kls-Jktb-Fkt M20) 20 mEq oral tablet, extended release 1 tablet = 20 mEq, By Mouth, 2 times a day, # 10 tablet, 0 Refills, Maintenance, 01/20/21 7:48:00 EDT, [facility] #[id number], Partial fill upon patient request if the [...] Refills, Soft Stop, 10/02/20 11:57:00 EST, Powder, [facility] #[id number], Partial fill upon patient... Start Date: 10/02/20 [...] 0 Refills, Maintenance, 01/20/21 7:49:00 EDT, Tablet, [facility] #[id number], Partial fill upon patient request if the [...]
--- OUTSIDE RECORDS SUMMARY | 2024-01-27 11:35 | XMS_ITS | Continuity of Care Document ---
Author Organization [facility] Address [address] [place] [address]- Care Team Providers Care Telephone Lines Repairer Name Role Phone Agustín Faria MD Primary Care Physician Encounter [facility] Date(s): 05/08/22 - 06/07/22 [facility] [address] [place] [address]- Allergies, Adverse Reactions, Alerts Substance Reaction Severity [...] tablet, 4 Refills, Maintenance, 02/04/22 8:07:00 EDT, [id number] #[id number], Partial fill upon patient request if the prescription is for a schedule II opioid drug., 170, cm, 01/21/22 12:57:00 EDT, Height... Start Date: 02/04/22 Stop Date: 07/04/22 Status: Ordered busPIRone 15 mg oral tablet 1 tablet = 15 mg, By Mouth, 3 times a day, # 90 tablet, 4 Refills, Maintenance, 02/04/22 8:08:00 EDT, Tablet, [facility] #[id number], Partial fill upon patient request if the prescription is fora schedule II opioid drug., 170, cm, 01/21/22 12:57... Start Date: 02/04/22 Stop Date: 07/04/22 Status: Ordered famotidine 20 mg oral tablet 20 mg, 1, tablet, By Mouth, 2 times a day, # 180 tablet, Refills 0, Tot. Refills 0, Maintenance, 01/08/21 13:59:00 EDT, Route to Pharmacy Electronically, [facility] #[id number], Partial fill upon patient request if the prescription is for a sched... Start Date: 01/08/21 Status: Ordered Flonase 50 mcg/inh nasal spray 2 sprays, Nares, Both, 2 times a day, PRN Congestion, # 16 Gm, 0 Refills, Maintenance, 08/20/20 11:17:00 EST, [place], [facility] #[id number], Partial fill upon patient request if the [...] 09/25/22 15:38:00 EST, Route to Pharmacy Electronically, [facility] #[id number], Partial fill upon patient request if the prescription is for a sched... Start Date: 09/25/22 Stop Date: 09/20/23 Status: Ordered isosorbide mononitrate 30 mg oral tablet, extended release 30 mg, 1, tablet, By Mouth, Daily in AM, for 90 days, # 90 tablet, Refills 3, Tot. Refills 3, Hard Stop 09/25/22 15:38:00 EST, 09/30/21 15:38:00 EST, Route to Pharmacy Electronically, [facility] #[id number], Partial fill upon patient request if t... Start Date: 09/30/21 Stop Date: 09/25/22 Status: Ordered KlonoPIN 1 mg oral tablet 1 tablet = 1 mg, By Mouth, 2 times a day, 0.5 mg midday, # 75 tablet, 4 Refills, Maintenance, 02/04/22 8:09:00 EDT, [facility] #[id number], 170, cm, 01/21/22 12:57:00 EDT, Height, 80.9, [...] 3 Refills, Maintenance, 09/13/22 16:21:00 EST, Tablet, [facility] #[id number], Partial fill upon patient request if the prescription is for a schedule II opioid dr... Start Date: 09/13/22 Stop Date: 09/08/23 Status: Ordered Metoprolol Tartrate 50 mg oral tablet 1.5 tablet = 75 mg, By Mouth, 2 times a day, for 90 days, Take 75 mg twice daily, # 270 tablet, 3 Refills, Hard Stop 09/13/22 16:21:00 EST, 09/18/21 16:21:00 EST, Tablet, [facility] #[id number],Partial fill upon patient request if the prescripti... Start Date: 09/18/21 Stop Date: 09/13/22 Status: Ordered nitroglycerin 0.4 mg sublingual tablet 1 tablet = 0.4 mg, Sublingual, Every 5 minutes, PRN as needed for chest pain, not to exceed 3 doses/15 min--if pain persists, seek medical attention, # 100 tablet, 3 Refills, Maintenance, 10/16/21 11:32:00 EST, Tablet, [facility] #[id number], Par... Start Date: 10/16/21 Stop Date: 02/13/22 Status: Ordered ondansetron 8 mg oral tablet, disintegrating 1 tablet = 8 mg, By Mouth, 3 times a day, PRN Nausea & Vomiting, # 30 tablet, 0 Refills, Maintenance, 12/26/20 12:55:00 EDT, [facility] #[id number], Partial fill upon patient request if the prescription is for a schedule II opioid drug., 170, cm,... Start Date: 12/26/20 Status: Ordered oxyCODONE 10 mg oral tablet = 10 mg, By Mouth, Every 8 hours, as needed; on a 15/month taper, # 60 tablet, 0 Refills, Maintenance, 03/24/21 11:54:00 EDT, Tablet, [facility] #[id number], Partial fill upon patient request ifthe prescription [...] capsule, 4 Refills, Maintenance, 02/04/22 8:06:00 EDT, [facility] #[id number], Partial fill upon patient request if the [...] Refills, Soft Stop, 04/20/22 10:54:00 EDT, Powder, [facility] #[id number], Partial fill upon patient... Start Date: 04/20/22 Status: Ordered spironolactone 25 mg oral tablet 25 mg, 1, tablet, By Mouth, Daily, # 90 tablet, Refills 3, Tot. Refills 3, Maintenance, 09/13/22 16:11:00 EST, Route to Pharmacy Electronically, [facility] #[id number], Partial fill upon patientrequest if the prescription is for a schedule II op... Start Date: 09/13/22 Stop Date: 09/08/23 Status: Ordered spironolactone 25 mg oral tablet 25 mg, 1, tablet, By Mouth, Daily, for 90 days, # 90 tablet, Refills 3, Tot. Refills 3, Hard Stop 09/13/22 16:11:00 EST, 09/18/21 16:11:00 EST, Route to Pharmacy Electronically, [facility] #[id number], Partial fill upon patient request if the pre... Start Date: 09/18/21 Stop Date: 09/13/22 Status: Ordered traZODone 150 mg oral tablet 1 tablet = 150 mg, By Mouth, Daily at bedtime, # 30 tablet, 4 Refills, Maintenance, 02/04/22 8:14:00 EDT, Tablet, [facility] #[id number], Partial fill upon patient request if the [...] Team Personnel Name: Agustín Faria MD Address: [address] [place] [address] [address] Agustín Faria [place], [place] [address]R[place]
--- OUTSIDE RECORDS SUMMARY | 2024-01-27 11:35 | XMS_ITS | Continuity of Care Document ---
Author Organization [facility] Address [address] [place] [address]- Care Team Providers Care Media Librarian Name Role Phone Maranda WILCOX, Silvio Martinez Primary Care Physician Encounter [facility] Date(s): 09/16/20 - 10/16/20 [facility] [address] [place] [address]- Allergies, Adverse Reactions, Alerts Substance Reaction Severity Status propranolol Rash Active Zoloft tachycardia n/v Active Nardil Palpitations - rapid N&V - Nausea and vomiting C/O - a headache Active Inderal n/v,tachcardia Active Cefzil Hives Active Compazine severe anxiety Hives Active Reglan severe anxiety~panic Active Xarelto rash Active Lexapro n/v Active Haldol Active Immunizations Given and Recorded Vaccine Date [...] capsule, 1 Refills, Maintenance, 10/21/19 11:17:00 EST, [facility] #[id number], 1 capsule By Mouth 3 times a [...] 04/09/21 14:58:00 EDT, 04/09/20 14:57:00 EDT, Tablet, [facility] #[id number], 169, cm, 04/05/20 12:55:00 EDT, Height, 85, [...] 0 Refills, Maintenance, 10/08/20 10:19:00 EST, Tablet, [facility] #[id number], 170, cm, 10/04/20 19:07:00 EST, Height, 91, kg, 0... Start Date: 10/08/20 Stop Date: 11/07/20 Status: Ordered KlonoPIN 1 mg oral tablet 2.5 tablet = 2.5 mg, By Mouth, Daily at bedtime, 0.5 mg TID 1 mg at hs, # 75 tablet, 3 Refills, Maintenance, 05/28/20 11:56:00 EDT, [facility] #[id number], 170, cm, 05/27/20 0:11:00 EDT, Height,90.4, kg, [...] 3 Refills, Maintenance, 10/16/20 16:21:00 EST, Tablet, [facility] #[id number], Partial fill upon patient request if the [...] 0 Refills, Maintenance, 06/18/20 16:48:00 EDT, Tablet, [facility] #[id number], 170, cm, 06/18/20 15:14:00 EDT, Height, 90.4, [...] Refills, Soft Stop, 10/02/20 11:57:00 EST, Powder, [facility] #[id number], Partial fill upon patient... Start Date: 10/02/20 [...]
--- OUTSIDE RECORDS SUMMARY | 2024-01-27 11:35 | XMS_ITS | Continuity of Care Document ---
Author Organization [facility] Address [address] [place] [id number]- Care Team Providers Care Ice Cream Van Vendor Name Role Phone Agustín Faria MD Primary Care Physician [place] [facility] [place]): [place]07[place]22 - 11/28/22 [facility] [address] [place] [address]- Encounter Diagnosis Adrenal insufficiency(Discharge Diagnosis) - 10/28/22 Attending Physician: Heath Urbina MD Admitting Physician: Heath Urbina MD Referring Physician: Agustín Faria MD Allergies, [...] tablet, 3 Refills, Maintenance, 08/17/22 15:43:00 EST, [facility] #[id number], 170, cm, 05/13/22 17:18:00 EDT, Height, 88.8, [...] tablet, 4 Refills, Maintenance, 11/11/22 15:10:00 EST, [facility] #[id number], Partial fill upon patient request if the prescription is for a schedule II opioid drug., 170, cm, 05/13/22 17:18:00 ED... Start Date: 11/11/22 Stop Date: 04/10/23 Status: Ordered busPIRone 15 mg oral tablet 1 tablet = 15 mg, By Mouth, 2 times a day, # 60 tablet, 4 Refills, Maintenance, 11/11/22 15:11:00 EST, Tablet, [facility] #[id number], Partial fill upon patient request if the prescription is for a schedule II opioid drug., 170, cm, 05/13/22 17:1... Start Date: 11/11/22 Stop Date: 04/10/23 Status: Ordered famotidine 20 mg oral tablet 20 mg, 1, tablet, By Mouth, 2 times a day, # 180 tablet, Refills 0, Tot. Refills 0, Maintenance, 01/08/21 13:59:00 EDT, Route to Pharmacy Electronically, [facility] #[id number], Partial fill upon patient request if the prescription is for a sched... Start Date: 01/08/21 Status: Ordered Flonase 50 mcg/inh nasal spray 2 sprays, Nares, Both, 2 times a day, PRN Congestion, # 16 Gm, 0 Refills, Maintenance, 08/20/20 11:17:00 EST, [place], [facility] #[id number], Partial fill upon patient request if the prescriptionis for a schedule II opioid drug., 170, cm, ... Start Date: 08/20/20 Status: Ordered gabapentin 300 mg oral capsule 300 mg, 1, capsule, By Mouth, 2 times a day, # 60 capsule, Refills 4, Tot. Refills 4, Maintenance, 11/11/22 15:13:00 EST, Route to Pharmacy Electronically, [facility] #[id number], Partial fill upon patient request if the [...] 09/25/22 15:38:00 EST, Route to Pharmacy Electronically, [facility] #[id number], Partial fill upon patient request if the prescription is for a sched... Start Date: 09/25/22 Stop Date: 09/20/23 Status: Ordered KlonoPIN 1 mg oral tablet 1 tablet = 1 mg, By Mouth, 2 times a day, dose is BID, # 60 tablet, 4 Refills, Maintenance, 11/11/22 15:11:00 EST, [facility] #[id number], NO EARLY REFILLS, 170, cm, 05/13/22 17:18:00 [...] 3 Refills, Maintenance, 09/13/22 16:21:00 EST, Tablet, [facility] #[id number], Partial fill upon patient request if the prescription is for a schedule II opioid drAndres.Andres Start Date: 09/13/22 Stop Date: 09/08/23 Status: Ordered nitroglycerin 0.4 mg sublingual tablet 1 tablet, Sublingual, Every 5 minutes, PRN NEEDED FOR CHEST PAIN MAX 3 DOSES IN 15 MINUTES IF PAIN PERSISTS CALL 911, # 100 tablet, 3 Refills, Maintenance, 08/17/22 15:44:00 EST, [facility] #[id number], 170, cm, 05/13/22 17:18:00 EDT, Height,... Start Date: 08/17/22 Status: Ordered ondansetron 8 mg oral tablet, disintegrating 1 tablet = 8 mg, By Mouth, 3 times a day, PRN Nausea & Vomiting, # 30 tablet, 0 Refills, Maintenance, 12/26/20 12:55:00 EDT, [facility] #[id number], Partial fill upon patient request if the prescription is for a schedule II opioid drug., 170, cm,... Start Date: 12/26/20 Status: Ordered oxyCODONE 10 mg oral tablet = 10 mg, By Mouth, Every 8 hours, as needed; on a 15/month taper, # 60 tablet, 0 Refills, Maintenance, 03/24/21 11:54:00 EDT, Tablet, [facility] #[id number], Partial fill upon patient request ifthe prescription [...] capsule, 4 Refills, Maintenance, 11/11/22 15:17:00 EST, [facility] #[id number], Partial fill upon patient request if the [...] 11/11/22 15:08:00 EST, Route to Pharmacy Electronically, [facility] #[id number], Partial fill upon patient request if the [...] Refills, Soft Stop, 04/20/22 10:54:00 EDT, Powder, [facility] #[id number], Partial fill upon patient... Start Date: 04/20/22 Status: Ordered spironolactone 25 mg oral tablet 25 mg, 1, tablet, By Mouth, Daily, # 90 tablet, Refills 3, Tot. Refills 3, Maintenance, 09/13/22 16:11:00 EST, Route to Pharmacy Electronically, [facility] #[id number], Partial fill upon patientrequest if the prescription is for a schedule II op... Start Date: 09/13/22 Stop Date: 09/08/23 Status: Ordered traZODone 150 mg oral tablet 2 tablet = 300 mg, By Mouth, Daily at bedtime, Ins will not cover 300mg, # 60 tablet, 4 Refills, Maintenance, 11/27/22 9:29:00 EST, Tablet, [facility] #[id number], Partial fill upon patient request if the prescription is for a schedule II opioid... Start Date: 11/27/22 Status: Ordered traZODone 300 mg oral tablet 1 tablet = 300 mg, By Mouth, Daily at bedtime, # 30 tablet, 4 Refills, Maintenance, 11/11/22 15:09:00 [facility] #[id number], Partial fill upon patient request if the [...] Effective Dates Health Status Clinical Service Informant Adrenal insufficiency Discharge Diagnosis 10/28/22 Social History Social History Type Response Smoking [...] Nurse Name: Madeline Baird RN Position: [facility] ED RN W/OE and Tasks Member Role: Primary Care Nurse Name: Teresa Carpio Position: [facility] RN Member Role: Primary Care Nurse Name: Inge Elizabeth RN Position: [facility] SN RN Member Role: Primary Care Nurse Name: Kelley Prasad RN Position: [facility] RN Member Role: Primary Care Nurse Name: Cindy Medeiros RN Position: [facility] RN Member Role: Primary Care Nurse Name: Linnette De La O RN Position: [facility] RAIL DOWELING MACHINE OPERATOR No Tools Member Role: Primary Care Nurse Name: Anna INDUCTION MACHINE OPERATORAlina Position: [facility] Associate Professional Member Role: Primary Care Nurse Address: Address: [address] [place] [address]- Name: Mary Anne Kilpatrick RN Position: [facility] MR W/ Merge Member Role: Primary Care Nurse Name: Agustín Faria MD Position: [facility] Outreach Member Role: PCP Address: Address: [address] [facility] [address] [place] [address]- Name: Nicole Hernández RN Position: [facility] RN Member Role: Primary Care Nurse Name: Douglas Harris Position: [facility] Cardio/Pulm Mgr ([facility] [place]) Member Role: Primary Care Nurse Name: Lindsay Srinivasan CNM Position: [facility] Measuring Machine Tender Member Role: Primary Care Nurse Address: Address: [address] [place] [address] [place] [address]- Name: Larissa Klein Position: [facility] RN Member Role: Primary Care Nurse Name: Karen Roa RN Position: [facility] ED RN W/OE and Tasks Member Role: Primary Care Nurse Name: Mary Alice Stevens RN Position: [facility] RN Member Role: Primary Care Nurse Name: Beverly Grey Position: [facility] RN Member Role: Primary Care Nurse Name: Alexy Geronimo RN Position: [facility] RN Member Role: Primary Care Nurse Name: Raúl Rudolph DO Position: [facility] ENGINEER STATION MAINLINE MD Member Role: Lifetime ENGINEER STATION MAINLINE Physician Address: Address: [address] [place], [place] [address]s Health Hand Spring Repairer - [place], [place] - [place] Name: Evelyn Haynes RN Position: [facility] RN Member Role: Primary Care Nurse Name: Crissy Metzger RN Position: [facility] RN Member Role: Primary Care Nurse Name: Elisa Gilbert RN Position: [facility] RN Member Role: Primary Care Nurse Name: Corina Solorio RN Position: [facility] PCO RN Member Role: Primary Care Nurse Name: Shawnee Lane RN Position: [facility] ED RN W/OE and Tasks Member Role: Primary Care Nurse Name: Erna Douglass RN Position: [facility] SN RN Member Role: Primary Care Nurse Name: Keyana Ndiaye RN Position: [facility] Visual Specialist Member Role: Primary Care Nurse Name: Yudy Trujillo RN Position: [facility] RN Member Role: Primary Care Nurse Name: Anabella Nicholson RN Position: [facility] AMB Nurse Member Role: Primary Care Nurse Name: Ramona Ybarra RN Position: [facility] RN Member Role: Primary Care Nurse Address: Address: [address] [place] [id number]- Name: Nancy Gallagher RN Position: [facility] Visual Specialist Member Role: Primary Care Nurse Name: Evelyn Allen RN Position: [facility] OB RN Member Role: Primary Care Nurse Name: Jackelin Watt RN Position: [facility] RN Member Role: Primary Care Nurse Name: Raymundo Elizabeth RN Position: [facility] SN RN Member Role: Primary Care Nurse Name: Opal Calderon RN Position: [facility] RN Member Role: Primary Care Nurse Name: Yadiel Warnre RN Position: [facility] SN RN Member Role: Primary Care Nurse Care Team Related Persons Name: BARTOLOME IBRAHIM Address: home [address] [place], [place] Name: GIANLUCA IBRAHIM Address: [address] [place], [place] Name: ABBIE IBRAHIM Address: [address] [place], [place] Name: SIM CERDA Name: DIANE CERDA Address: [address] Name: SOLO CORRIGAN Address: [address] [place], [place] Name: SOLO FLORES Address: [address] [place], [place] Name: RAYMUNDO MAYFIELD Address: home [address] [facility] [place] [address]
--- OUTSIDE RECORDS SUMMARY | 2024-01-27 11:35 | XMS_ITS | Continuity of Care Document ---
Author Organization [facility] Address [address] [place] [address]- Care Team Providers Care Computing Systems Mechanic Name Role Phone Maranda WILCOX, Silvio Martinez Primary Care Physician Encounter [facility] Date(s): 08/28/20 - 09/27/20 [facility] [address] [place] [address]- Allergies, Adverse Reactions, Alerts Substance Reaction Severity [...] capsule, 1 Refills, Maintenance, 10/21/19 11:17:00 EST, [facility] #[id number], 1 capsule By Mouth 3 times a [...] 04/09/21 14:58:00 EDT, 04/09/20 14:57:00 EDT, Tablet, [facility] #[id number], 169, cm, 04/05/20 12:55:00 EDT, Height, 85, [...] tablet, 3 Refills, Maintenance, 05/28/20 11:56:00 EDT, [facility] #[id number], 170, cm, 05/27/20 0:11:00 EDT, Height,90.4, kg, [...] Acute 06/08/21 12:08:00 EDT, 05/03/21 10:04:00 EDT, [facility]/pharmacy #[id number], 169, cm, 04/15/20 [...] 0 Refills, Maintenance, 06/18/20 16:48:00 EDT, Tablet, [facility] #[id number], 170, cm, 06/18/20 15:14:00 EDT, Height, 90.4, [...] 11 Refills, Soft Stop, 07/10/20 6:01:00 EDT, [facility] #[id number], 170, cm, 07/10/20 2:42:00 EDT, Height, 90.5, kg, 07/09/20 23:20:00 EDT, Dry Weight Start Date: 07/10/20 Status: Ordered Solu-CORTEF 100 mg preservative-free injection = 100 mg, Intramuscular, Once, prn adrenal crisis, # 5 each, 11 Refills, Soft Stop, 05/03/20 16:07:00 EDT, [facility] #[id number], 169, cm, 04/15/20 17:38:00 EDT, Height, 85, [...]
--- OUTSIDE RECORDS SUMMARY | 2024-01-27 11:35 | XMS_ITS | Continuity of Care Document ---
Author Organization [facility] Address [address] [place] [address]- Care Team Providers Care Non Acoustic Operator Name Role Phone Maranda WILCOX, Silvio Martinez Primary Care Physician Encounter [facility] Date(s): 08/12/20 - 09/11/20 [facility] [place] [address] [place] [address]- Allergies, Adverse Reactions, Alerts Substance Reaction Severity [...] mL, Refills 11, Tot. Refills 11, Maintenance, [facility]: [id number], 05/08/20 16:20:00 EDT, Supply, 169, cm, 04/15/20 [...] 270 capsule, 1 Refills, Maintenance, 10/21/19 11:17:00 [facility], [facility] #[id number], 1 capsule By Mouth 3 times a [...] 04/09/21 14:58:00 EDT, 04/09/20 14:57:00 EDT, Tablet, [facility] #[id number], 169, cm, 04/05/20 12:55:00 EDT, Height, 85, [...] tablet, 3 Refills, Maintenance, 05/28/20 11:56:00 EDT, [facility] #[id number], 170, cm, 05/27/20 0:11:00 EDT, Height,90.4, kg, [...] Acute 04/30/21 16:58:00 EDT, 04/30/20 16:57:00 EDT, [facility] #[id number], 169, cm, 04/15/20 17:38:00 EDT, Height, 85, kg, 03/15/20 2:33:00 EDT, Dry Weight Start Date: 04/30/20 Stop Date: 04/30/21 Status: Ordered methylprednisolone 2 gm injectable powder for injection See Instructions, inject 4 grams IM for adrenal crisis, # 48 Gm, 11 Refills, Acute 06/08/21 12:08:00 EDT, 05/03/21 10:04:00 EDT, [facility]/pharmacy #[id number], 169, cm, 04/15/20 17:38:00 EDT, Height, 85, kg, 03/15/20 2:33:00 EDT, Dry Weight Start Date: 05/03/21 Stop Date: 06/08/21 Status: Ordered methylprednisolone 2 gm injectable powder for injection See Instructions, inject 4 grams IM for adrenal crisis, # 48 Gm, 3 Refills, Acute 05/03/21 10:04:00EDT, 05/03/20 10:03:00 EDT, [facility] #[id number], 169, cm, 04/15/20 17:38:00 EDT, Height, 85, kg, 03/15/20 2:33:00 EDT, Dry Weight Start Date: 05/03/20 Stop Date: 05/03/21 Status: Ordered methylprednisolone 2 gm injectable powder for injection See Instructions, inject 4 grams IM for adrenal crisis, # 48 Gm, 3 Refills, Acute 05/03/21 11:58:00EDT, 05/03/21 10:04:00 EDT, [facility], 169, cm, 04/15/20 17:38:00 [...] 0 Refills, Maintenance, 06/18/20 16:48:00 EDT, Tablet, [facility] #[id number], 170, cm, 06/18/20 15:14:00 EDT, Height, 90.4, [...] 11 Refills, Soft Stop, 07/10/20 6:01:00 EDT, [facility] #[id number], 170, cm, 07/10/20 2:42:00 EDT, Height, 90.5, kg, 07/09/20 23:20:00 EDT, Dry Weight Start Date: 07/10/20 Status: Ordered Solu-CORTEF 100 mg preservative-free injection = 100 mg, Intramuscular, Once, prn adrenal crisis, # 5 each, 11 Refills, Soft Stop, 05/03/20 16:07:00 EDT, [facility] #[id number], 169, cm, 04/15/20 17:38:00 EDT, Height, 85, [...] Refills, Maintenance, 12/05/19 20:49:00 EDT, DIS Tablet, [facility] #[id number], 170, cm, 12/05/19 19:19:00 EDT, Height, 88.7, [...]
--- OUTSIDE RECORDS SUMMARY | 2024-01-27 11:36 | XMS_ITS | Continuity of Care Document ---
Author Organization [facility] Address [address] [place] [address]- Care Team Providers Care Head Machinist Name Role Phone Bienvenido WILCOX, Agustín Joaquin Primary Care Physician [phone] Encounter [facility] Date(s): 01/06/22 - 01/06/[address] [address]- Discharge Disposition: A-D/C Home Attending Physician: True Sanford MD Admitting Physician: True Sanford MD Referring Physician: Not on Staff, Referring MD Allergies, Adverse Reactions, Alerts Substance Reaction Severity Status propranolol Rash Active Inderal n/v,tachcardia Active Compazine severe anxiety Hives Active Xarelto rash Active Zoloft tachycardia n/v Active Nardil Palpitations - rapid N&V - Nausea and vomiting C/O - a headache Active Cefzil Hives Active Haldol Active Reglan [...] 01/06/22 15:44:00 EDT, [id number], Partial fill upon patient request if th... [...] tablet, 0 Refills, Maintenance, 12/26/20 12:55:00 EDT, [facility] #[id number], Partial fill upon patient request if the prescription is for a schedule II opioid drug., 170, cm,... Start Date: 12/26/20 Status: Ordered oxyCODONE 5 mg oral tablet 5 mg, 1, tablet, By Mouth, Every 6 hours, PRN, for 5 days, # 20 tablet, Refills 0, Tot. Refills 0, Acute 01/11/22 15:44:00 EDT, Pain , Severe, 01/06/22 15:44:00 EDT, Route to Pharmacy Electronically,[facility] #[id number], Partial fill upon pedro pablo... Start Date: [...] Refills, Soft Stop, 10/27/21 14:15:00 EST, Powder, [facility] #[id number], Partial fill upon patient... Start Date: 10/27/21 [...] Exam Date Time Procedure Performing Provider Status 01/06/22 3:12 PM Foot Min 3 Views Left Audie Powell [facility] (Verified) Notes: (Foot Min 3 Views Left) Reason For Exam: Trauma RESULT: Foot Min 3 Views Left Exam examination: Left ankle and left foot performed on 01/06/2022. History: Hx of Present Illness: pt states she had mechanical fall down the last 2 steps of stairs last night injuring both ankles. denies head strike. Swelling noted to ankles bilaterally, +CSMs; Reason: Trauma; Clinical Question(s): Other: Findings: Frontal, oblique, and lateral views of the left ankle and frontal, oblique, and lateral views of the left foot are submitted. The mortise is preserved. No fractures or dislocations are seen within the ankle or foot. Soft tissue swelling overlies the lateral malleolus. IMPRESSION: Soft tissue swelling. There is no acute osseous abnormality. WSN: [id number] Ordering Physician: Sourav Brownlee Dictated By: Cindy Jama MD Dictated Date/Time: 01/06/22 3:25 pm Reviewed By: Cindy Jama MD Signed By: Cindy Jama MD Signed Date/Time: 01/06/22 3:25 pm Transcribed By: CSB Transcribed Date/Time: 01/06/22 3:24 pm * Exam Date Time Procedure Performing Provider Status 01/06/22 3:12 PM Ankle Min 3 Views Left Edison Powell; Auth (Verified) Notes: (Ankle Min 3 Views Left) Reason For Exam: Trauma;Trauma RESULT: Ankle Min 3 Views Left Exam examination: Left ankle and left foot performed on 01/06/2022. History: Hx of Present Illness: pt states she had mechanical fall down the last 2 steps of stairs last night injuring both ankles. denies head strike. Swelling noted to ankles bilaterally, +CSMs; Reason: Trauma; Clinical Question(s): Other: Findings: Frontal, oblique, and lateral views of the left ankle and frontal, oblique, and lateral views of the left foot are submitted. The mortise is preserved. No fractures or dislocations are seen within the ankle or foot. Soft tissue swelling overlies the lateral malleolus. IMPRESSION: Soft tissue swelling. There is no acute osseous abnormality. WSN: [id number] Ordering Physician: Sourav Brownlee Dictated By: Cindy Jama MD Dictated Date/Time: 01/06/22 3:25 pm Reviewed By: Cindy Jama MD Signed By: Cindy Jama MD Signed Date/Time: 01/06/22 3:25 pm Transcribed By: CSB Transcribed Date/Time: 01/06/22 3:24 pm * Exam Date Time Procedure Performing Provider Status 01/06/22 3:12 PM Foot Min 3 Views Right Edison Powell; Auth (Verified) Notes: (Foot Min 3 Views Right) Reason For Exam: Trauma RESULT: Foot Min 3 Views Right Examination: Right ankle and right foot performed on 01/06/2022. History: Hx of Present Illness: pt states she had mechanical fall down the last 2 steps of stairs last night injuring both ankles. denies head strike. Swelling noted to ankles bilaterally, +CSMs; Reason: Trauma; Clinical Question(s): Other: Findings: Frontal, oblique, and lateral views of the right foot and frontal, oblique, and lateral views of the right ankle are submitted. The mortise is preserved. There is an oblique, nondisplaced lateral malleolar fracture with minimaloverlying soft tissue swelling. No additional fractures are seen within the ankle or foot. Impression: Distal fibular fracture. An [place] message has been communicated via the [employer] system on 01/06/2022 3:23 PM, Message ID [id number]. WSN: [id number] Ordering Physician: Sourav Brownlee Dictated By: Cindy Jama MD Dictated Date/Time: 01/06/22 3:23 pm Reviewed By: Cindy Jama MD Signed By: Cindy Jama MD Signed Date/Time: 01/06/22 3:23 pm Transcribed By: DIANE Transcribed Date/Time: 01/06/22 3:22 pm * Exam Date Time Procedure Performing Provider Status 01/06/22 3:12 PM Ankle Min 3 Views Right Audie Powell (Verified) Notes: (Ankle Min 3 Views Right) Reason For Exam: Trauma;Trauma RESULT: Ankle Min 3 Views Right Examination: Right ankle and right foot performed on 01/06/2022. History: Hx of Present Illness: pt states she had mechanical fall down the last 2 steps of stairs last night injuring both ankles. denies head strike. Swelling noted to ankles bilaterally, +CSMs; Reason: Trauma; Clinical Question(s): Other: Findings: Frontal, oblique, and lateral views of the right foot and frontal, oblique, and lateral views of the right ankle are submitted. The mortise is preserved. There is an oblique, nondisplaced lateral malleolar fracture with minimaloverlying soft tissue swelling. No additional fractures are seen within the ankle or foot. Impression: Distal fibular fracture. An [place] message has been communicated via the [employer] system on 01/06/2022 3:23 PM, Message ID [id number]. WSN: [id number] Ordering Physician: Sourav Brownlee Dictated By: Cindy Jama MD Dictated Date/Time: 01/06/22 3:23 pm Reviewed By: Cindy Jama MD Signed By: Cindy Jama MD Signed Date/Time: 01/06/22 3:23 pm Transcribed By: DIANE Transcribed Date/Time: 01/06/22 3:22 pm Vital Signs Most recent to oldest [Reference Range]: 1 2 Height 170 cm (01/06/22 2:39 PM) 170 cm (01/06/22 2:38 PM) Weight 80.9 kg (01/06/22 2:39 PM) 80.9 kg (01/06/22 2:38 PM) Oxygen Saturation [94-100 %] 100 % (01/06/22 2:38 PM) Pulse Rate [55-90 bpm] 96 bpm *H* (01/06/22 2:38 PM) Body Mass Index [18.5-24.99] 27.99 *H* (01/06/22 2:38 PM) Blood Pressure [90-138/55-84 mm Hg] 110/ 78mm Hg (01/06/22 2:38 PM) Respiratory Rate [16-30 br/min] 17 br/mi n (01/06/22 2:38 PM) Temperature [96.8-100.4 DegF] 98.1 DegF (01/06/22 2:38 PM) Blood pressure sites Arm, left (01/06/22 2:38 PM) Temperature Route Temporal (01/06/22 2:38 PM) Dry Weight 80.9 kg (01/06/22 2:39 PM) 80.9 kg (01/06/22 2:38 PM) Weight Obtained Via Patient/family state d (01/06/22 2:38 PM) Dry Weight Obtained Via Patient/family s tated (01/06/22 2:38 PM) Social History Social History Type Response Smoking Status Current every day rowan oker; Previous treatment: Counseling; Previous treatment: Nicotine replacement; Other: 1/2 ppd x 20 yrs; entered on: 09/16/16 Sex Medical Equipment Implanted Date:07/09/21Target Site:[facility] Description Quantity MRI Company Model STENT STRETCH VL 6FR - BSCI ([phone] 1 wikifolio Amanda Unknown GO:No Information Assigning Authority: FDA
--- OUTSIDE RECORDS SUMMARY | 2024-01-27 11:36 | XMS_ITS | Continuity of Care Document ---
Author Organization [facility] Address [address] [place] [address] Dr ve [address] [place] [address]- Care Team Providers Care Security Investigator Name Role Phone Dash WILCOX (IN), Paola Anderson Primary Care Physician Encounter [facility] Date(s): 08/13/23 - 11/12/[address] [place] [address]- Attending Physician: Agustín East MD Referring Physician: Dash WILCOX (IN) , Paola Anderson Allergies, Adverse Reactions, Alerts [...] 0 Refills, Maintenance, 07/15/23 11:42:00 EDT, Tablet, [facility] #[id number], Partial fill upon patient request if the [...] 4 Refills, Maintenance, 08/10/23 14:21:00 EST, Tablet, [facility] #06252, Partial fill upon patient request if the prescription is fora schedule II opioid drug., 170, cm, 08/05/23 3:21:... Start Date: 08/10/23 Stop Date: 01/07/24 Status: Ordered Metoprolol Tartrate 100 mg oral tablet 1 tablet, By Mouth, 2 times a day, # 60 tablet, 4 Refills, Maintenance, 10/11/23 9:06:00 EST, [facility] #[id number], 170, cm, 09/26/23 11:43:00 EST, Height, 93, [...] 0 Refills, Maintenance, 05/13/23 10:33:00 EDT, Tablet, [facility] #[id number], Partial fill upon patient request if the prescription is for a schedule II opioid drug., 1... Start Date: 05/13/23 Stop Date: 05/16/23 Status: Ordered ondansetron 4 mg oral tablet, disintegrating 1 tablet = 4 mg, By Mouth, Every 6 hours, PRN as needed for nausea/vomiting, # 14 tablet, 0 Refills, Maintenance, 10/13/23 13:52:00 EST, DIS Tablet, [facility] #[id number], Partial fill upon patient request if the prescription is for a schedule I... Start Date: 10/13/23 Status: Ordered potassium chloride 10 mEq oral tablet, extended release 2 tablet = 20 mEq, By Mouth, Daily, # 14 tablet, 0 Refills, Soft Stop, 08/27/23 8:49:00 EST, ER Tablet, [facility] #[id number], Partial fill upon patient request if the [...] capsule, 4 Refills, Maintenance, 08/10/23 14:14:00 EST, [facility] #[id number], Partial fill upon patient request if the [...] Refills, Soft Stop, 05/27/23 14:16:00 EDT, Powder, [facility] #[id number], Partial fill upon patient... Start Date: 05/27/23 Status: Ordered spironolactone 25 mg oral tablet 1, tablet, By Mouth, Daily, # 30 tablet, Refills 0, Maintenance, 09/10/23 16:43:00 EST, Route to Pharmacy Electronically, [facility] #[id number], 170, cm, 08/27/23 7:32:00 EST, Height, 99, kg, 08/18/23 9:13:00 EST, Dry Weight Start Date: 09/10/23 Status: Ordered Wellbutrin SR 100 mg/12 hours oral tablet, extended release 1 tablet = 100 mg, By Mouth, Daily, # 30 tablet, 4 Refills, Maintenance, 08/10/23 14:26:00 EST, [facility] #[id number], Partial fill upon patient request if the [...] Dash WILCOX (IN) , Paola Anderson Position: [facility] Outreach Member Role: PCP Address: Address: [address] [place] [id number] [place] Name: Daina Ibrahim RN Position: [facility] ED RN W/OE and Tasks Member Role: Primary Care Nurse Name: Madeline Baird RN Position: [facility] ED RN W/OE and Tasks Member Role: Primary Care Nurse Name: Teresa Carpio Position: [facility] RN Member Role: Primary Care Nurse Name: Inge Elizabeth RN Position: [facility] SN RN Member Role: Primary Care Nurse Name: Kelley Prasad RN Position: [facility] ED RN W/OE and Tasks Member Role: Primary Care Nurse Name: Cindy Medeiros RN Position: [facility] RN Member Role: Primary Care Nurse Name: Linnette De La O RN Position: [facility] PACU NURSE Member Role: Primary Care Nurse Name: Alina Castillo NP Position: [facility] Associate Professional Member Role: Primary Care Nurse Address: Address: [address] [place] [address]- Name: Gab Velarde RN Position: [facility] RN Member Role: Primary Care Nurse Name: Mary Anne Kilpatrick RN Position: [facility] MR W/ Merge Member Role: Primary Care Nurse Name: Nicole Hernández RN Position: [facility] RN Member Role: Primary Care Nurse Name: Lindsay Srinivasan CNM Position: [facility] Petroleum Blending Plant Operator Member Role: Primary Care Nurse Address: Address: [address] [place] [address]- Name: Bea Brown RN Position: [facility] RN Member Role: Primary Care Nurse Name: Kiana Sabillon RN Position: [facility] RN Member Role: Primary Care Nurse Name: Larissa Olson [place] Position: [facility] RN Member Role: Primary Care Nurse Name: Karen Roa RN Kate Position: [facility] ED RN W/OE and Tasks Member Role: Primary Care Nurse Name: Mary Alice Stevens RN Position: [facility] RN Member Role: Primary Care Nurse Name: Beverly Grey Position: [facility] RN Member Role: Primary Care Nurse Name: Alexy Geronimo RN Position: [facility] ED RN W/OE and Tasks Member Role: Primary Care Nurse Name: Raúl Rudolph DO Position: [facility] HEAD GRINDER MD Member Role: Lifetime HEAD GRINDER Physician Address: Address: [address] [place] [address]- Name: Evelyn Haynes RN Position: [facility] RN Member Role: Primary Care Nurse Name: Crissy Metzger RN Position: [facility] RN Member Role: Primary Care Nurse Name: Elisa Gilbert RN Position: [facility] RN Member Role: Primary Care Nurse Name: Corina Solorio RN Position: [facility] AMB Nurse Member Role: Primary Care Nurse Name: Shawnee Lane RN Position: [facility] ED RN W/OE and Tasks Member Role: Primary Care Nurse Name: Ana Estrada RN Position: [facility] RN Member Role: Primary Care Nurse Name: Erna Douglass RN Position: [facility] SN RN Member Role: Primary Care Nurse Name: Keyana Ndiaye RN Position: [facility] Hospital Film Mounter Member Role: Primary Care Nurse Name: Grace Verma RN Position: [facility] RN Member Role: Primary Care Nurse Name: Anabella Nicholson RN Position: [facility] AMB Nurse Member Role: Primary Care Nurse Name: Brenda Tomas RN Position: [facility] Outreach Member Role: Primary Care Nurse Name: Ramona Ybarra RN Position: [facility] RN Member Role: Primary Care Nurse Address: Address: [address] [place] [address]- [place] Name: Nancy Gallagher RN Position: [facility] Hospital Film Mounter Member Role: Primary Care Nurse Name: Evelyn Allen RN Position: [facility] OB RN Member Role: Primary Care Nurse Name: Jackelin Watt RN Position: [facility] RN Member Role: Primary Care Nurse Name: Raymundo Elizabeth RN Position: [facility] SN RN Member Role: Primary Care Nurse Name: Opal Calderon RN Position: [facility] RN Member Role: Primary Care Nurse Name: Timmy RNYadiel Position: [facility] SN RN Member Role: Primary Care Nurse Care Team Related Persons Name: BARTOLOME IBRAHIM Address: home [address] [place] [address] Name: GIANLUCA IBRAHIM Address: [address] [address] Name: ABBIE IBRAHIM Address: home [address] [place] [address] Name: SIM CERDA Name: DIANE CERDA Address: [address] [address] Name: SOLO CORRIGAN Address: home [address] [place] [address] Name: SOLO FLORES Address: home [address] [place] [address] Name: RAYMUNDO MAYFIELD Address: home [address] [place] [address]
--- OUTSIDE RECORDS SUMMARY | 2024-01-27 11:36 | XMS_ITS | Continuity of Care Document ---
Author Organization [facility] Address [address] [place] [address]- Care Team Providers Care Teacher Asst Name Role Phone Silvio Low MD Primary Care Physician Encounter [facility] Date(s): 09/30/20 - 11/29/20 [facility] [address] [place] [address]- Attending Physician: Manda Tomas MD Referring Physician: Silvio Low MD Allergies, Adverse Reactions, Alerts Substance Reaction Severity Status propranolol Rash Active Xarelto rash Active Lexapro n/v Active [...] capsule, 1 Refills, Maintenance, 10/21/19 11:17:00 EST, [facility] #[id number], 1 capsule By Mouth 3 times a [...] 04/09/21 14:58:00 EDT, 04/09/20 14:57:00 EDT, Tablet, [facility] #05005, 169, cm, 04/05/20 12:55:00 EDT, Height, 85, [...] 3 Refills, Maintenance, 10/16/20 16:21:00 EST, Tablet, [facility] #[id number], Partial fill upon patient request if the prescription is for a schedul... Start Date: 10/16/20 Stop Date: 02/13/21 Status: Ordered ondansetron 4 mg oral tablet 1 tablet = 4 mg, By Mouth, Every 8 hours, PRN Nausea & Vomiting, # 20 tablet, 0 Refills, Maintenance, 06/18/20 16:48:00 EDT, Tablet, [facility] #[id number], 170, cm, 06/18/20 15:14:00 EDT, Height, 90.4, kg, 06/18/20 15:14:00 EDT, Dry Weight Start Date: 06/18/20 Stop Date: 06/25/20 Status: Ordered ondansetron 8 mg oral tablet, disintegrating 1 tablet = 8 mg, By Mouth, 3 times a day, # 10 tablet, 0 Refills, Maintenance, 10/30/20 17:44:00 EST, [facility] #[id number], Partial fill upon patient request if the [...] Refills, Soft Stop, 10/02/20 11:57:00 EST, Powder, [facility] #[id number], Partial fill upon patient... Start Date: 10/02/20 [...]
--- OUTSIDE RECORDS SUMMARY | 2024-01-27 11:36 | XMS_ITS | Continuity of Care Document ---
Author Organization [facility] Address [address] [place] [address]- Care Team Providers Care Dairy Cattle Farm Worker Name Role Phone Maranda WILCOX, Silvio Martinez Primary Care Physician Encounter [facility] Date(s): 05/28/20 - 06/27/20 [facility] [address] [place] [address]- [facility] Allergies, Adverse Reactions, Alerts Substance Reaction Severity [...] [facility]: [address]-94, 05/08/20 16:20:00 EDT, Supply, 169, cm, 04/15/20 [...] capsule, 1 Refills, Maintenance, 10/21/19 11:17:00 EST, [facility] #76992, 1 capsule By Mouth 3 times a [...] 04/09/21 14:58:00 EDT, 04/09/20 14:57:00 EDT, Tablet, [facility] #80745, 169, cm, 04/05/20 12:55:00 EDT, Height, 85, [...] tablet, 3 Refills, Maintenance, 05/28/20 11:56:00 EDT, [facility] #78424, 170, cm, 05/27/20 0:11:00 EDT, Height,90.4, kg, [...] Acute 04/30/21 16:58:00 EDT, 04/30/20 16:57:00 EDT, [facility] #[id number], 169, cm, 04/15/20 17:38:00 EDT, Height, 85, kg, 03/15/20 2:33:00 EDT, Dry Weight Start Date: 04/30/20 Stop Date: 04/30/21 Status: Ordered methylprednisolone 2 gm injectable powder for injection See Instructions, inject 4 grams IM for adrenal crisis, # 48 Gm, 11 Refills, Acute 06/08/21 12:08:00 EDT, 05/03/21 10:04:00 EDT, [facility]/pharmacy #1111, 169, cm, 04/15/20 17:38:00 EDT, Height, 85, kg, 03/15/20 2:33:00 EDT, Dry Weight Start Date: 05/03/21 Stop Date: 06/08/21 Status: Ordered methylprednisolone 2 gm injectable powder for injection See Instructions, inject 4 grams IM for adrenal crisis, # 48 Gm, 3 Refills, Acute 05/03/21 10:04:00EDT, 05/03/20 10:03:00 EDT, [facility] #[id number], 169, cm, 04/15/20 17:38:00 EDT, Height, 85, kg, 03/15/20 2:33:00 EDT, Dry Weight Start Date: 05/03/20 Stop Date: 05/03/21 Status: Ordered methylprednisolone 2 gm injectable powder for injection See Instructions, inject 4 grams IM for adrenal crisis, # 48 Gm, 3 Refills, Acute 05/03/21 11:58:00EDT, 05/03/21 10:04:00 EDT, [facility], 169, cm, 04/15/20 [...] 0 Refills, Maintenance, 06/18/20 16:48:00 EDT, Tablet, [facility] #[id number], 170, cm, 06/18/20 15:14:00 EDT, Height, 90.4, [...] 11 Refills, Soft Stop, 05/03/20 16:07:00 EDT, [facility] #41711, 169, cm, 04/15/20 17:38:00 EDT, Height, 85, [...] Refills, Maintenance, 12/05/19 20:49:00 EDT, DIS Tablet, [facility] #[id number], 170, cm, 12/05/19 19:19:00 EDT, Height, 88.7, [...]
--- OUTSIDE RECORDS SUMMARY | 2024-01-27 11:36 | XMS_ITS | Continuity of Care Document ---
Author Organization [facility] Address [address] [place] [address]- Care Team Providers Care Insulating Machine Operator Name Role Phone Agustín Faria MD Primary Care Physician Encounter [facility] Date(s): 09/05/19 - 09/05/[address] [address]- [facility] Encounter Diagnosis Chest wall muscle strain(Final) - 09/05/19 Discharge Disposition: A-D/C Home Attending Physician: Hilary Strickland MD Admitting Physician: Hilary Strickland MD Referring Physician: Not on Staff, Referring [...] 02/21/19 8:58:39 EDT, Route to Pharmacy Electronically, [id number], [facility] 3 Start Date: 02/21/19 Stop Date: 04/22/19 [...] 08/24/19 9:15:39 EST, Route to Pharmacy Electronically, [id number], [id number], 170, cm, 08/24/19 8:38:44 EST, H... Start [...] 02/21/19 8:59:46 EDT, Route to Pharmacy Electronically, [id number], [facility] Start Date: 02/21/19 Stop Date: 09/19/19 [...] Exam Date Time Procedure Performing Provider Status 09/05/19 2:14 AM Chest 2 Views Frontal and Lat [place] no , Job; Auth (Verified) Notes: (Chest 2 Views Frontal and Lat) Reason For Exam: Pain over Pacer site after Fall;Other: RESULT: Chest 2 Views Frontal and Lat Chest 2 Views Frontal and Lat INDICATION/CLINICAL QUESTION: Pain following fall and chest injury. Concern of injury to pacemaker. TECHNIQUE: Frontal and lateral views of the chest. COMPARISON: 07/22/2019.. FINDINGS: LINES AND TUBES: Biventricular pacemaker leads intact and in satisfactory unchanged position. LUNGS AND PLEURA: RIGHT CHEST: The right lung is clear and there is no right effusion. No pneumothorax. LEFT CHEST: The left lung is clear and there is no left effusion. No pneumothorax. HEART, MEDIASTINUM AND ELIAS: The heart is of normal size. The mediastinum and elias are normal. BONES AND SOFT TISSUES: No acute bony abnormality. IMPRESSION: 1. No active disease in chest. 2. Intact pacemaker leads in unchanged satisfactory position. WSN: [id number] Dictated By: Michael Rubi MD Dictated Date/Time: 09/05/19 8:36 am Reviewed By: Michael Rubi MD Signed By: Micahel Rubi MD Signed Date/Time: 09/05/19 8:36 am Transcribed By: DIANE Transcribed Date/Time: 09/05/19 8:34 am Vital Signs Most recent to oldest [Reference Range]: 1 2 Height 170 cm (09/05/19 4:43 AM) 170 cm (09/05/19 1:45 AM) Weight 91 kg (09/05/19 4:43 AM) 91 kg (09/05/19 1:45 AM) Oxygen Saturation [94-100 %] 97 % (09/05/19 4:43 AM) 98 % (09/05/19 1:45 AM) Pulse Rate [55-90 bpm] 69 bpm (09/05/19 4:43 AM) 93 bpm *H* (09/05/19 1:45 AM) Body Mass Index [18.5-24.99] 31.49 *>HHI* (09/05/19 4:43 AM) Blood Pressure [90-138/55-84 mm Hg] 123/ 80mm Hg (09/05/19 4:43 AM) 136/96mm Hg (09/05/19 1:45 AM) Respiratory Rate [16-30 br/min] 16 br/mi n (09/05/19 4:43 AM) 18 br/min (09/05/19 1:45 AM) Temperature [96.8-100.4 DegF] 98.1 DegF (09/05/19 1:45 AM) Mode of Delivery (Oxygen) Room air (09/05/19 4:43 AM) Room air (09/05/19 1:45 AM) Blood pressure sites Arm, left (09/05/19 4:43 AM) Arm, left (09/05/19 1:45 AM) Temperature Route Oral (09/05/19 1:45 AM) Dry Weight 91 kg (09/05/19 4:43 AM) 91 kg (09/05/19 1:45 AM) Weight Obtained Via Standing scale (09/05/19 1:45 AM) Dry Weight Obtained Via Standing scale (09/05/19 1:45 AM) Social History Social History Type Response Smoking Status 10 or more cigarette s (1/2 pack or more)/day in last 30 days entered on: 08/06/19 Sex
--- OUTSIDE RECORDS SUMMARY | 2024-01-27 11:36 | XMS_ITS | Continuity of Care Document ---
Author Organization [facility] Address [address] [place] [address]- Care Team Providers Care Cloth Finishing Range Back Tender Name Role Phone Silvio Low MD Primary Care Physician Encounter [facility] Date(s): 03/09/20 - 04/18/[address] [address]- [facility] Attending Physician: Amos Appiah MD Admitting Physician: [...] Active Lexapro n/v Active Xarelto rash Active Haldol Active Immunizations Given and Recorded [...] capsule, 1 Refills, Maintenance, 10/21/19 11:17:00 EST, [facility] #[id number], 1 capsule By Mouth 3 times a [...] 04/09/21 14:58:00 EDT, 04/09/20 14:57:00 EDT, Tablet, [facility] #27578, 169, cm, 04/05/20 12:55:00 EDT, Height, 85, [...] 11 Refills, Soft Stop, 04/09/20 14:51:00 EDT, [facility] #99078, 169, cm, 04/05/20 12:55:00 EDT, Height, 85, [...] Refills, Maintenance, 12/05/19 20:49:00 EDT, DIS Tablet, [facility] #43814, 170, cm, 12/05/19 19:19:00 EDT, Height, 88.7, [...]
--- OUTSIDE RECORDS SUMMARY | 2024-01-27 11:36 | XMS_ITS | Continuity of Care Document ---
Author Organization [facility] Address [address] [place] [address]- Care Team Providers Care Roller Painter Name Role Phone Mariella OCAMPO, Amelia Primary Care Physician Encounter [facility] Date(s): 12/13/19 - 12/23/19 [facility] [address] [place] [address] Attending Physician: Maximo Cano Admitting Physician: AdmtrMaximo Referring Physician: Admtr, Ar8 Allergies, Adverse Reactions, Alerts Substance Reaction Severity Status propranolol Rash Active Zoloft tachycardia n/v Active Nardil Palpitations - rapid N&V - Nausea and vomiting C/O - a headache Active Xarelto rash Active Inderal n/v,tachcardia Active Cefzil Hives Active [...] Stop 02/18/20 11:16:00EDT, 10/21/19 11:16:00 EST, Tablet, [facility] #61321, 170, cm, 10/20/19 13:48:00 EST, Height, 92.3, kg, 10/15/19 6:38:00 EST, Dry Weight Start Date: 10/21/19 Stop Date: 02/18/20 Status: Ordered atorvastatin 20 mg oral tablet 1 tablet = 20 mg, By Mouth, Daily, # 90 tablet, 1 Refills, Maintenance, 10/21/19 11:16:00 EST, Tablet, [facility] #07858, 170, cm, 10/20/19 13:48:00 EST, Height, 92.3, [...] 02/21/19 8:58:39 EDT, Route to Pharmacy Electronically, [id number], [facility] 3 Start Date: 02/21/19 Stop Date: 04/22/19 Status: Ordered Creon 36,000 units oral delayed release capsule 1 capsule, By Mouth, 3 times a day, with each meal and snack, # 270 capsule, 1 Refills, Maintenance, 10/21/19 11:17:00 EST, [facility] #13594, 1 capsule By Mouth 3 times a [...] 08/24/19 9:15:39 EST, Route to Pharmacy Electronically, [id number], [facility] #68709, 170, cm, 08/24/19 8:38:44 EST, H... Start [...] 0 Refills, Maintenance, 09/28/19 0:43:00 EST, Tablet, [facility] #04533, 171, cm, 09/27/19 22:45:00 EST, Height, 92.2, [...] 0 Refills, Soft Stop, 09/28/19 0:51:00 EST, [facility] #71513, 171, cm, 09/27/19 22:45:00 EST, Height, 92.2, [...] 02/21/19 8:59:46 EDT, Route to Pharmacy Electronically, [id number], [facility] 3 Start Date: 02/21/19 Stop Date: [...] Refills, Maintenance, 12/05/19 20:49:00 EDT, DIS Tablet, [facility] #74286, 170, cm, 12/05/19 19:19:00 EDT, Height, 88.7, [...]
--- OUTSIDE RECORDS SUMMARY | 2024-01-27 11:36 | XMS_ITS | Continuity of Care Document ---
Author Organization [facility] Address [address] [place] [address]- Care Team Providers Care Front Office Medical Assistant Name Role Phone Marnada WILCOX, Silvio Martinez Primary Care Physician Encounter [facility] Date(s): 04/11/20 - 05/11/20 [facility] [address] [place] [address]- [facility] Allergies, Adverse Reactions, Alerts Substance [...] mL, Refills 11, Tot. Refills 11, Maintenance, [facility]: [id number], 05/08/20 16:20:00 EDT, Supply, 169, cm, 04/15/20 [...] capsule, 1 Refills, Maintenance, 10/21/19 11:17:00 EST, [facility] #64189, 1 capsule By Mouth 3 times a [...] 04/09/21 14:58:00 EDT, 04/09/20 14:57:00 EDT, Tablet, [facility] #81863, 169, cm, 04/05/20 12:55:00 EDT, Height, 85, [...] Acute 04/30/21 16:58:00 EDT, 04/30/20 16:57:00 EDT, [facility] #31181, 169, cm, 04/15/20 17:38:00 EDT, Height, 85, kg, 03/15/20 2:33:00 EDT, Dry Weight Start Date: 04/30/20 Stop Date: 04/30/21 Status: Ordered methylprednisolone 2 gm injectable powder for injection See Instructions, inject 4 grams IM for adrenal crisis, # 48 Gm, 11 Refills, Acute 06/08/21 12:08:00 EDT, 05/03/21 10:04:00 EDT, [facility]/pharmacy #1111, 169, cm, 04/15/20 17:38:00 EDT, Height, 85, kg, 03/15/20 2:33:00 EDT, Dry Weight Start Date: 05/03/21 Stop Date: 06/08/21 Status: Ordered methylprednisolone 2 gm injectable powder for injection See Instructions, inject 4 grams IM for adrenal crisis, # 48 Gm, 3 Refills, Acute 05/03/21 10:04:00EDT, 05/03/20 10:03:00 EDT, [facility] #21576, 169, cm, 04/15/20 17:38:00 EDT, Height, 85, kg, 03/15/20 2:33:00 EDT, Dry Weight Start Date: 05/03/20 Stop Date: 05/03/21 Status: Ordered methylprednisolone 2 gm injectable powder for injection See Instructions, inject 4 grams IM for adrenal crisis, # 48 Gm, 3 Refills, Acute 05/03/21 11:58:00EDT, 05/03/21 10:04:00 EDT, [facility], 169, cm, 04/15/20 17:38:00 EDT, [...] 11 Refills, Soft Stop, 05/03/20 16:07:00 EDT, [facility] #77536, 169, cm, 04/15/20 17:38:00 EDT, Height, 85, [...] Refills, Maintenance, 12/05/19 20:49:00 EDT, DIS Tablet, [facility] #16791, 170, cm, 12/05/19 19:19:00 EDT, Height, 88.7, [...]
--- OUTSIDE RECORDS SUMMARY | 2024-01-27 11:36 | XMS_ITS | Continuity of Care Document ---
Author Organization [facility] Address [address] [place] [address]- Care Team Providers Care Derrick Boat Captain Name Role Phone Maranda WILCOX, Silvio Martinez Primary Care Physician Encounter [facility] Date(s): 08/28/20 - 09/27/20 [facility] [address] [place] [address]- Allergies, Adverse Reactions, Alerts Substance Reaction Severity [...] capsule, 1 Refills, Maintenance, 10/21/19 11:17:00 EST, [facility] #25683, 1 capsule By Mouth 3 times a [...] 04/09/21 14:58:00 EDT, 04/09/20 14:57:00 EDT, Tablet, [facility] #61603, 169, cm, 04/05/20 12:55:00 EDT, Height, 85, [...] tablet, 3 Refills, Maintenance, 05/28/20 11:56:00 EDT, [facility] #60489, 170, cm, 05/27/20 0:11:00 EDT, Height,90.4, kg, [...] Acute 06/08/21 12:08:00 EDT, 05/03/21 10:04:00 EDT, [facility]/pharmacy #1111, 169, cm, 04/15/20 [...] 0 Refills, Maintenance, 06/18/20 16:48:00 EDT, Tablet, [facility] #69600, 170, cm, 06/18/20 15:14:00 EDT, Height, 90.4, [...] 11 Refills, Soft Stop, 07/10/20 6:01:00 EDT, [facility] #91832, 170, cm, 07/10/20 2:42:00 EDT, Height, 90.5, kg, 07/09/20 23:20:00 EDT, Dry Weight Start Date: 07/10/20 Status: Ordered Solu-CORTEF 100 mg preservative-free injection = 100 mg, Intramuscular, Once, prn adrenal crisis, # 5 each, 11 Refills, Soft Stop, 05/03/20 16:07:00 EDT, [facility] #95349, 169, cm, 04/15/20 17:38:00 EDT, Height, 85, [...]
--- OUTSIDE RECORDS SUMMARY | 2024-01-27 11:36 | XMS_ITS | Continuity of Care Document ---
Author Organization [facility] Address [address] [place] [address]- Care Team Providers Care Bridge/Structure Inspection Team Leader Name Role Phone Dash WILCOX ([place]), Paola Anderson Primary Care Physician Encounter [facility] Date(s): 06/04/23 - 07/04/[address] [address]- Allergies, Adverse Reactions, Alerts Substance Reaction Severity [...] Other : Medications (Vitamin D3) Cholecalciferol 400 [facility] units/mL oral syringe 1 mL = 10 [...] tablet, 3 Refills, Maintenance, 08/17/22 15:43:00 EST, [facility] #[id number], 170, cm, 05/13/22 17:18:00 EDT, Height, 88.8, [...] 01/08/21 13:59:00 EDT, Route to Pharmacy Electronically, [facility] #[id number], Partial fill upon patient request if the prescription is for a sched... Start Date: 01/08/21 Status: Ordered Flonase 50 mcg/inh nasal spray 2 sprays, Nares, Both, 2 times a day, PRN Congestion, # 16 Gm, 0 Refills, Maintenance, 08/20/20 11:17:00 EST, [place], [facility] #[id number], Partial fill upon patient request if the prescriptionis for a schedule II opioid drug., 170, cm, ... Start Date: 08/20/20 Status: Ordered gabapentin 300 mg oral capsule See Instructions, 1 cap in the AM, 2 in the afternoon and 2 at bedtime, # 1 each, Refills 4, Tot. Refills 4, Maintenance, 11/11/22 15:13:00 EST, Instructions Replace Required Details, Route to Pharmacy Electronically, [facility] #[id number], Part... Start Date: 11/11/22 Status: Ordered Insulin [...] 05/14/23 20:59:00 EDT, Route to Pharmacy Electronically, [facility] #[id number], Partial fill upon patient request if the [...] 0 Refills, Maintenance, 05/13/23 10:33:00 EDT, Tablet, [facility] #[id number], Partial fill upon patient request if the prescription is for a schedule II opioid drug., 1... Start Date: 05/13/23 Stop Date: 05/16/23 Status: Ordered prazosin 2 mg oral capsule 2 capsule = 4 mg, By Mouth, Daily at bedtime, if PO intake is low or BP low below 110/70 only take one cap, # 60 capsule, 4 Refills, Maintenance, 11/11/22 15:17:00 EST, [facility] #[id number], Partial fill upon patient request if the [...] 03/10/23 15:36:00 EDT, Route to Pharmacy Electronically, [facility] #[id number], Partial fill upon patient request if the [...] Refills, Soft Stop, 05/27/23 14:16:00 EDT, Pow[place], [facility] #[id number], Partial fill upon patient... Start Date: 05/27/23 Status: Ordered spironolactone 25 mg oral tablet 25 mg, 1, tablet, By Mouth, Daily, # 30 tablet, Refills 3, Tot. Refills 3, Maintenance, 05/14/23 20:55:00 EDT, Route to Pharmacy Electronically, [facility] #[id number], Partial fill upon patientrequest if the prescription [...] Dash WILCOX ([place]) , Paola Anderson Position: [facility] Outreach Member Role: PCP Address: Address: [address] [place] [phone] [place] Name: Daina Ibrahim RN Position: [facility] ED RN W/OE and Tasks Member Role: Primary Care Nurse Name: Madeline Baird RN Position: [facility] ED RN W/OE and Tasks Member Role: Primary Care Nurse Name: Teresa Carpio Position: S RN Member Role: Primary Care Nurse Name: Inge Elizabeth RN Position: [facility] RN Member Role: Primary Care Nurse Name: Kelley Prasad RN Position: [facility] RN Member Role: Primary Care Nurse Name: Cindy Medeiros RN Position: [facility] RN Member Role: Primary Care Nurse Name: Linnette De La O RN Position: [facility] INSPECTOR WATER POLLUTION CONTROL Member Role: Primary Care Nurse Name: Alina Castillo NP Position: [facility] Associate Professional Member Role: Primary Care Nurse Address: Address: [address] [facility] [place] [address]- [place] Name: Mary Anne Kilpatrick RN Position: [facility] MR W/ Merge Member Role: Primary Care Nurse Name: Nicole Hernández RN Position: [facility] RN Member Role: Primary Care Nurse Name: Lindsay Srinivasan CNM Position: [facility] Lens Matcher Member Role: Primary Care Nurse Address: Address: [address] [place] [address] [place] [address]- [place] Name: Larissa Olson [place] Position: [facility] RN Member Role: Primary Care Nurse Name: Karen Roa RN Position: [facility] ED RN W/OE and Tasks Member Role: Primary Care Nurse Name: Mary Alice Stevens RN Position: [facility] RN Member Role: Primary Care Nurse Name: Beverly Grey Position: [facility] RN Member Role: Primary Care Nurse Name: Alexy Geronimo RN Position: [facility] RN Member Role: Primary Care Nurse Name: Raúl Rudolph DO Position: [facility] CLOTH CUTTER MD Member Role: Lifetime CLOTH CUTTER Physician Address: Address: [address] [place] [address] [place] [address]- [place] Name: Evelyn Haynes RN Position: [facility] RN Member Role: Primary Care Nurse Name: Crissy Metzger RN Position: [facility] RN Member Role: Primary Care Nurse Name: Elisa Gilbert RN Position: [facility] RN Member Role: Primary Care Nurse Name: Corina Solorio RN Position: [facility] AMB Nurse Member Role: Primary Care Nurse Name: Shawnee Lane RN Position: [facility] ED RN W/OE and Tasks Member Role: Primary Care Nurse Name: Erna Douglass RN Position: [facility] SN RN Member Role: Primary Care Nurse Name: Keyana Ndiaye RN Position: [facility] Brick Burner Head Member Role: Primary Care Nurse Name: Anabella Nicholson RN Position: [facility] AMB Nurse Member Role: Primary Care Nurse Name: Brenda Tomas RN Position: [facility] Outreach Member Role: Primary Care Nurse Name: Ramona Ybarra RN Position: [facility] RN Member Role: Primary Care Nurse Address: Address: [address] [place] [address]- Name: Nancy Gallagher RN Position: [facility] Brick Burner Head Member Role: Primary Care Nurse Name: Evelyn Allen RN Position: [facility] OB RN Member Role: Primary Care Nurse Name: Jackelin Watt RN Position: [facility] RN Member Role: Primary Care Nurse Name: Raymundo Elizabeth RN Position: [facility] SN RN Member Role: Primary Care Nurse Name: Opal Calderon RN Position: [facility] RN Member Role: Primary Care Nurse Name: Yadiel Warner RN Position: [facility] SN RN Member Role: Primary Care Nurse Care Team Related Persons Name: BARTOLOME IBRAHIM Address: [address] [place] [address] Name: GIANLUCA IBRAHIM Address: [address] [place] [address] Name: ABBIE IBRAHIM Address: [address] [place] [address] Name: SIM CERDA Name: DIANE CERDA Address: [address] [place] [address] Name: SOLO CORRIGAN Address: [address] [place] [address] Name: SOLO FLORES Address: [address] [place] [address] Name: RAYMUNDO MAYFIELD Address: [address] [place] [address]
--- OUTSIDE RECORDS SUMMARY | 2024-01-27 11:36 | XMS_ITS | Continuity of Care Document ---
Author Organization [facility] Address [address] [place] [address]- Care Team Providers Care Nuclear Fuels Research Engineer Name Role Phone Dash WILCOX ([place]), Paola Anderson Primary Care Physician Encounter [facility] Date(s): 09/17/23 - 10/17/23 [facility] [address] [place] [address]- Allergies, Adverse Reactions, Alerts Substance Reaction Severity [...] 0 Refills, Maintenance, 07/15/23 11:42:00 EDT, Tablet, [facility] #[id number], Partial fill upon patient request if the [...] 4 Refills, Maintenance, 08/10/23 14:21:00 EST, Tablet, [facility] #[id number], Partial fill upon patient request if the prescription is fora schedule II opioid drug., 170, cm, 08/05/23 3:21:... Start Date: 08/10/23 Stop Date: 01/07/24 Status: Ordered Metoprolol Tartrate 100 mg oral tablet 1 tablet, By Mouth, 2 times a day, # 60 tablet, 4 Refills, Maintenance, 10/11/23 9:06:00 EST, [facility] #[id number], 170, cm, 09/26/23 11:43:00 EST, Height, 93, [...] 0 Refills, Maintenance, 05/13/23 10:33:00 EDT, Tablet, [facility] #[id number], Partial fill upon patient request if the prescription is for a schedule II opioid drug., 1... Start Date: 05/13/23 Stop Date: 05/16/23 Status: Ordered ondansetron 4 mg oral tablet, disintegrating 1 tablet = 4 mg, By Mouth, Every 6 hours, PRN as needed for nausea/vomiting, # 14 tablet, 0 Refills, Maintenance, 10/13/23 13:52:00 EST, DIS Tablet, [facility] #[id number], Partial fill upon patient request if the prescription is for a schedule I... Start Date: 10/13/23 Status: Ordered oxyCODONE 5 mg oral tablet 5 mg, 1, tablet, By Mouth, Every 6 hours, PRN, # 16 tablet, Refills 0, Tot. Refills 0, Acute 10/21/23 13:52:00 EST, as needed for pain, 10/13/23 13:52:00 EST, Route to Pharmacy Electronically, [facility] #[id number], Partial fill upon patient req... Start Date: 10/13/23 Stop Date: 10/21/23 Status: Ordered potassium chloride 10 mEq oral tablet, extended release 2 tablet = 20 mEq, By Mouth, Daily, # 14 tablet, 0 Refills, Soft Stop, 08/27/23 8:49:00 EST, ER Tablet, [facility] #[id number], Partial fill upon patient request if the [...] capsule, 4 Refills, Maintenance, 08/10/23 14:14:00 EST, [facility] #[id number], Partial fill upon patient request if the [...] Refills, Soft Stop, 05/27/23 14:16:00 EDT, Powder, [facility] #[id number], Partial fill upon patient... Start Date: 05/27/23 Status: Ordered spironolactone 25 mg oral tablet 1, tablet, By Mouth, Daily, # 30 tablet, Refills 0, Maintenance, 09/10/23 16:43:00 EST, Route to Pharmacy Electronically, [facility] #[id number], 170, cm, 08/27/23 7:32:00 EST, Height, 99, kg, 08/18/23 9:13:00 EST, Dry Weight Start Date: 09/10/23 Status: Ordered Wellbutrin SR 100 mg/12 hours oral tablet, extended release 1 tablet = 100 mg, By Mouth, Daily, # 30 tablet, 4 Refills, Maintenance, 08/10/23 14:26:00 EST, [facility] #[id number], Partial fill upon patient request if the [...] information Care Team Personnel Name: Dash WILCOX ([place]) , Paola Anderson Position: [facility] Outreach Member Role: PCP Address: Address: [address] [place] [phone] [place] Name: Daina Ibrahim RN Position: [facility] [...] La O RN Position: [facility] VARNISHER Member Role: Primary Care Nurse Name: Alina Castillo NP Position: [facility] Associate Professional Member Role: Primary Care Nurse Address: Address: [address] [facility] [place] [address]- [place] Name: Mary Anne Kilpatrick RN Position: [facility] MR W/ Merge Member Role: Primary Care Nurse Name: Nicole Hernández RN Position: [facility] RN Member Role: Primary Care Nurse Name: Lindsay Srinivasan CNM Position: [facility] Cleaning Professional Member Role: Primary Care Nurse Address: Address: [address] [place] [address]- [place] Name: Kiana Sabillon RN Position: [facility] RN Member Role: Primary Care Nurse Name: Larissa Olson [place] Position: [facility] RN Member Role: Primary Care Nurse Name: Karen Roa RN Position: [facility] ED RN W/OE and Tasks Member Role: Primary Care Nurse Name: Mary Alice Stevens RN Position: [facility] RN Member Role: Primary Care Nurse Name: Beverly Grey Position: [facility] RN Member Role: Primary Care Nurse Name: Alexy Geronimo RN Position: [facility] ED RN W/OE and Tasks Member Role: Primary Care Nurse Name: Raúl Rudolph DO Position: [facility] GLOBAL LOGISTICS MANAGER MD Member Role: Lifetime GLOBAL LOGISTICS MANAGER Physician Address: Address: [address] [place] [address]- Name: Evelyn Haynes RN Position: [facility] [...] RN Member Role: Primary Care Nurse Name: Enra Douglass RN Position: [facility] SN RN Member Role: Primary Care Nurse Name: Keyana Ndiaye RN Position: [facility] Hospital Camp Head Counselor Member Role: Primary Care Nurse Name: Anabella Nicholson RN Position: [facility] AMB Nurse Member Role: Primary Care Nurse Name: Brenda Tomas RN Position: [facility] Outreach Member Role: Primary Care Nurse Name: Ramona Ybarra RN Position: [facility] RN Member Role: Primary Care Nurse Address: Address: [address] [place] [address]- Name: Nancy Gallagher RN Position: [facility] Hospital Camp Head Counselor Member Role: Primary Care Nurse Name: Evelyn [...] Persons Name: BARTOLOME IBRAHIM Address: [address] [place] [address] Name: GIANLUCA IBRAHIM Address: [address] [place] [address] Name: ABBIE IBRAHIM Address: [address] [place] [address] Name: SIM CERDA Name: DIANE CERDA Address: [address] [place] [address] Name: SOLO CORRIGAN Address: [address] [place] [address] Name: SOLO FLORES Address: [address] [place] [address] Name: RAYMUNDO MAYFIELD Address: [address] [place] [address]
--- OUTSIDE RECORDS SUMMARY | 2024-01-27 11:36 | XMS_ITS | Continuity of Care Document ---
Author Organization [facility] Address [address] [place] [address]- Care Team Providers Care Field Crop Farm Worker Name Role Phone Maranda WILCOX, Silvio Martinez Primary Care Physician Encounter [facility] Date(s): 12/03/20 - 01/02/21 [facility] [address] [place] [address]- Allergies, Adverse Reactions, Alerts Substance Reaction Severity [...] capsule, 1 Refills, Maintenance, 10/21/19 11:17:00 EST, [email or web address] #[id number], 1 capsule By Mouth 3 times a [...] 04/09/21 14:58:00 EDT, 04/09/20 14:57:00 EDT, Tablet, [facility] #[id number], 169, cm, 04/05/20 12:55:00 EDT, Height, 85, [...] 3 Refills, Maintenance, 10/16/20 16:21:00 EST, Tablet, [email or web address] #[id number], Partial fill upon patient request if the prescription is for a schedul... Start Date: 10/16/20 Stop Date: 02/13/21 Status: Ordered ondansetron 8 mg oral tablet, disintegrating 1 tablet = 8 mg, By Mouth, 3 times a day, PRN Nausea & Vomiting, # 30 tablet, 0 Refills, Maintenance, 12/26/20 12:55:00 EDT, [email or web address] #[id number], Partial fill upon patient request if the [...] Refills, Maintenance, 12/26/20 12:54:00 EDT, ER Tablet, [email or web address] #[id number], 170, cm, 12/26/20 9:55:00 EDT, Height, 84.65, [...] Refills, Soft Stop, 10/02/20 11:57:00 EST, Powder, [facility] #[id number], Partial fill upon patient... Start Date: 10/02/20 [...]
--- OUTSIDE RECORDS SUMMARY | 2024-01-27 11:36 | XMS_ITS | Continuity of Care Document ---
Author Organization [facility] Address [address] [place] [address]- Care Team Providers Care General Counselor Name Role Phone Bienvenido WILCOX, Agustín Joaquin Primary Care Physician [phone] Encounter [facility] Date(s): 05/02/21 - 06/01/21 [facility] [address] [place] [address]- Allergies, Adverse Reactions, Alerts Substance Reaction Severity [...] tablet, 0 Refills, Maintenance, 12/26/20 12:55:00 EDT, [facility] #[id number], Partial fill upon patient request if the prescription is for a schedule II opioid drug., 170, cm,... Start Date: 12/26/20 Status: Ordered Potassium Chloride = 40 mEq, By Mouth, 2 times a day, 0 Refills, Maintenance, 01/20/21 5:39:00 EDT, Partial fill upon patient request if the prescription is for a schedule II opioid drug. Start Date: 01/20/21 Status: Ordered Potassium Chloride (Yat-Jsrk-Bma M20) 20 mEq oral tablet, extended release 1 tablet = 20 mEq, By Mouth, 2 times a day, # 10 tablet, 0 Refills, Maintenance, 01/20/21 7:48:00 EDT, [facility] #[id number], Partial fill upon patient request if the [...] 0 Refills, Maintenance, 01/20/21 7:49:00 EDT, Tablet, [facility] #[id number], Partial fill upon patient request if the [...]
--- OUTSIDE RECORDS SUMMARY | 2024-01-27 11:36 | XMS_ITS | Continuity of Care Document ---
Author Organization [facility] Address [address] [place] [address]- Care Team Providers Care Color Tester Name Role Phone Dash WILCOX ([place]), Paola Anderson Primary Care Physician Encounter [facility] Date(s): 06/14/23 - 06/15/[address] [address]- Discharge Disposition: A-D/C Home Attending Physician: Kenneth [...] Other : Medications (Vitamin D3) Cholecalciferol 400 FCI units/mL oral syringe 1 mL = 10 [...] tablet, 3 Refills, Maintenance, 08/17/22 15:43:00 EST, [facility] #[id number], 170, cm, 05/13/22 17:18:00 EDT, Height, 88.8, [...] 01/08/21 13:59:00 EDT, Route to Pharmacy Electronically, [facility] #[id number], Partial fill upon patient request if the prescription is for a sched... Start Date: 01/08/21 Status: Ordered Flonase 50 mcg/inh nasal spray 2 sprays, Nares, Both, 2 times a day, PRN Congestion, # 16 Gm, 0 Refills, Maintenance, 08/20/20 11:17:00 EST, [place], [facility] #[id number], Partial fill upon patient request if the prescriptionis for a schedule II opioid drug., 170, cm, ... Start Date: 08/20/20 Status: Ordered gabapentin 300 mg oral capsule See Instructions, 1 cap in the AM, 2 in the afternoon and 2 at bedtime, # 1 each, Refills 4, Tot. Refills 4, Maintenance, 11/11/22 15:13:00 EST, Instructions Replace Required Details, Route to Pharmacy Electronically, [facility] #[id number], Part... Start Date: 11/11/22 Status: Ordered Insulin [...] 05/14/23 20:59:00 EDT, Route to Pharmacy Electronically, [facility] #[id number], Partial fill upon patient request if the [...] 0 Refills, Maintenance, 05/13/23 10:33:00 EDT, Tablet, [facility][id number], Partial fill upon patient request if the prescription is for a schedule II opioid drug., 1... Start Date: 05/13/23 Stop Date: 05/16/23 Status: Ordered prazosin 2 mg oral capsule 2 capsule = 4 mg, By Mouth, Daily at bedtime, if PO intake is low or BP low below 110/70 only take one cap, # 60 capsule, 4 Refills, Maintenance, 11/11/22 15:17:00 EST, [facility] #[id number], Partial fill upon patient request if the [...] 03/10/23 15:36:00 EDT, Route to Pharmacy Electronically, [facility] #[id number], Partial fill upon patient request if the [...] Refills, Soft Stop, 05/27/23 14:16:00 EDT, Powder, [facility] #[id number], Partial fill upon patient... Start Date: 05/27/23 Status: Ordered spironolactone 25 mg oral tablet 25 mg, 1, tablet, By Mouth, Daily, # 30 tablet, Refills 3, Tot. Refills 3, Maintenance, 05/14/23 20:55:00 EDT, Route to Pharmacy Electronically, [facility] #[id number], Partial fill upon patientrequest if the prescription [...] Exam Date Time Procedure Performing Provider Status 06/15/23 5:58 AM Chest 2 Views Frontal and Lat Rut a Yancy; Auth (Verified) Notes: (Chest 2 Views Frontal and Lat) Reason For Exam: Shortness of Breath, Fever;Other: RESULT: Chest 2 Views Frontal and Lat Examination: Chest performed on 06/15/2023. History: Shortness of breath. Findings: Frontal and lateral views of the chest are compared to a prior study dated 05/10/2023. Pacer is present. The cardiac and mediastinal silhouettes are within normal limits. The lungs are clear. The osseous and soft tissue structures are unremarkable. Surgical clips are present in the right upper quadrant. Impression: There is no acute cardiopulmonary disease. WSN: [id number] Ordering Physician: Kenneth Baker Dictated By: Cindy Jama MD Dictated Date/Time: 06/15/23 7:35 am Reviewed By: Cindy Jama MD Signed By: Cindy Jama MD Signed Date/Time: 06/15/23 7:35 am Transcribed By: DIANE Transcribed Date/Time: 06/15/23 7:34 am Vital Signs Most recent to oldest [Reference Range]: 1 2 3 Height 170.18 cm (06/15/23 7:43 AM) 170.18 cm (06/14/23 11:39 PM) Weight 91.1 kg (06/14/23 11:39 PM) Oxygen Saturation [94-100 %] 98 % (06/15/23 9:55 AM) 98 % (06/15/23 7:43 AM) 100 % (06/15/23 4:00 AM) Pulse Rate [55-90 bpm] 70 bpm (06/15/23 9:55 AM) 67 bpm (06/15/23 7:43 AM) 62 bpm (06/15/23 4:00 AM) Blood Pressure [90-138/55-84 mm Hg] 114/75mm Hg (06/15/23 9:55 AM) 118/85mm Hg (06/15/23 7:43 AM) 110/87mm Hg (06/15/23 4:00 AM) Respiratory Rate [16-30 br/min] 16 br/min (06/15/23 9:55 AM) 18 br/min (06/15/23 7:43 AM) 17 br/min (06/15/23 4:00 AM) Temperature [96.8-100.4 DegF] 97.5 DegF (06/15/23 9:55 AM) 98.7 DegF (06/15/23 4:00 AM) 96.8 DegF (06/14/23 11:39 PM) Mode of Delivery (Oxygen) Room air (06/15/23 9:55 AM) Room air (06/15/23 7:43 AM) Room air (06/15/23 4:00 AM) Blood pressure sites Arm, right (06/15/23 9:55 AM) Arm, right (06/15/23 7:43 AM) Arm, left (06/15/23 4:00 AM) Temperature Route Oral (06/15/23 9:55 AM) Oral (06/15/23 4:00 AM) Temporal (06/14/23 11:39 PM) Dry Weight 91.1 kg (06/14/23 11:39 PM) Weight Obtained Via Standing scale (06/14/23 11:39 PM) Dry Weight Obtained Via Standing scale (06/14/23 11:39 PM) Social History Social History Type Response [...] Unknown Unknown Active Un known Note * Kael Kelley MD: PERFORM Event Display: Patient Education Leaflets Authored Date: [id number] Unknown Causes of Abdominal Pain(Adult) ?? [id number] Unknown Causes of Abdominal Pain(Adult) The exact [...] period ?? Last Reviewed Date: 2021 ?? [employer] All rights reserved. This information is not intended as a substitute for professional medical care. Always follow your healthcare professional's instructions. ?? Patient Care team information Care Team Personnel Name: Dash WILCOX ([place]) , Paola Anderson Position: [facility] Outreach Member Role: PCP Address: Address: [address] [place] [id number] [place] Name: Daina Ibrahim RN Position: [facility] ED RN W/OE and Tasks Member Role: Primary Care Nurse Name: Madeline Baird RN Position: [facility] ED RN W/OE and Tasks Member Role: Primary Care Nurse Name: Teresa Carpio Position: [facility] RN Member Role: Primary Care Nurse Name: Inge Elizabeth RN Position: [facility] SN RN Member Role: Primary Care Nurse Name: Kelley Prasad RN Position: [facility] RN Member Role: Primary Care Nurse Name: Cindy Medeiros RN Position: [facility] RN Member Role: Primary Care Nurse Name: Linnette De La O RN Position: [facility] TODDLER GUIDE Member Role: Primary Care Nurse Name: Alina Castillo NP Position: [facility] Associate Professional Member Role: Primary Care Nurse Address: Address: [address] [place] [id number] Name: Mary Anne Kilpatrick RN Position: [facility] MR W/ Merge Member Role: Primary Care Nurse Name: Nicole Hernández RN Position: [facility] RN Member Role: Primary Care Nurse Name: Lindsay Srinivasan CNM Position: [facility] Medical Instrument Cable Fabricator Member Role: Primary Care Nurse Address: Address: [address] [place] [address] [place] [address]- [place] Name: Larissa Olson [place] Position: [facility] RN Member Role: Primary Care Nurse Name: Karen Roa RN Position: [facility] ED RN W/OE and Tasks Member Role: Primary Care Nurse Name: Mary Alice Stevens RN Position: [facility] RN Member Role: Primary Care Nurse Name: Beverly Grey Position: [facility] RN Member Role: Primary Care Nurse Name: Alexy Geronimo RN Position: [facility] RN Member Role: Primary Care Nurse Name: Raúl Rudolph DO Position: [facility] RAIL SIGNAL DESIGNER MD Member Role: Lifetime RAIL SIGNAL DESIGNER Physician Address: Address: [address] [place] [address]- [place] Name: Evelyn Haynes RN Position: [facility] RN Member Role: Primary Care Nurse Name: Crissy Metzger RN Position: [facility] RN Member Role: Primary Care Nurse Name: Elisa Gilbert RN Position: [facility] RN Member Role: Primary Care Nurse Name: Corina Solorio RN Position: [facility] Nurse Member Role: Primary Care Nurse Name: Shawnee Lane RN Position: [facility] ED RN W/OE and Tasks Member Role: Primary Care Nurse Name: Erna Douglass RN Position: [facility] RN Member Role: Primary Care Nurse Name: Keyana Ndiaye RN Position: [facility] Oil Burner Repairer Member Role: Primary Care Nurse Name: Anabella Nicholson RN Position: [facility] AMB Nurse Member Role: Primary Care Nurse Name: Brenda Tomas RN Position: [facility] Outreach Member Role: Primary Care Nurse Name: Ramona Ybarra RN Position: [facility] RN Member Role: Primary Care Nurse Address: Address: [address] [place] [address]- [place] Name: Nancy Gallagher RN Position: [facility] Oil Burner Repairer Member Role: Primary Care Nurse Name: Evelyn Allen RN Position: [facility] OB RN Member Role: Primary Care Nurse Name: Jackelin Watt RN Position: [facility] RN Member Role: Primary Care Nurse Name: Raymundo Elizabeth RN Position: [facility] SN RN Member Role: Primary Care Nurse Name: Opal Calderon RN Position: [facility] RN Member Role: Primary Care Nurse Name: Timmy RN, [place] Position: [facility] SN RN Member Role: Primary Care Nurse Name: Ayanna Neves RN Position: [facility] ED RN W/OE and Tasks Member Role: Patient Care Provider Name: Kael Kelley MD Position: [facility] ED Medicine MD Member Role: ED Attending Physician Address: Address: [address] [place] [address] Name: Che Meredith Position: [facility] ED TA [facility] Member Role: Patient Care Provider Name: Michelle David Position: [facility] ED RN W/OE and Tasks Member Role: Patient Care Provider Care Team Related Persons Name: BARTOLOME IBRAHIM Address: home [address] [place] [address] Name: GIANLUCA IBRAHIM Address: home [address] [place] [address] Name: ABBIE IBRAHIM Address: home [address] [place] [address] Name: SIM CERDA Name: DIANE CERDA Address: home [address] [place] [address] Name: SOLO CORRIGAN Address: home [address], [place] Name: SOLO FLORES Address: home [address] [place] [address] Name: RAYMUNDO MAYFIELD Address: home [address] [place] [address]
--- OUTSIDE RECORDS SUMMARY | 2024-01-27 11:37 | XMS_ITS | Continuity of Care Document ---
Author Organization [facility] Address [address] [place] [address]- Care Team Providers Care Division Commander Name Role Phone Maranda WILCOX, Silvio Martinez Primary Care Physician Encounter [facility] Date(s): 12/09/20 - 01/08/21 [facility] [address] Attending Physician: AdmMaximo diaz Admitting Physician: AdmtrMaximo [...] 01/10/21 12:08:00 EDT, 01/04/21 12:08:00 EDT, Capsule, [facility] #[id number], Partial fill upon patient request if the [...] opioid drug. Start Date: 12/30/20 Status: Ordered fludrocortisone 0.1 mg oral tablet 1 tablet = 0.1 mg, By Mouth, Daily, # 90 tablet, 3 Refills, Acute 04/09/21 14:58:00 EDT, 04/09/20 14:57:00 EDT, Tablet, [facility] #[id number], 169, cm, 04/05/20 12:55:00 EDT, Height, 85, [...] 3 Refills, Maintenance, 10/16/20 16:21:00 EST, Tablet, [facility] #[id number], Partial fill upon patient request if the prescription is for a schedul... Start Date: 10/16/20 Stop Date: 02/13/21 Status: Ordered ondansetron 8 mg oral tablet, disintegrating 1 tablet = 8 mg, By Mouth, 3 times a day, PRN Nausea & Vomiting, # 30 tablet, 0 Refills, Maintenance, 12/26/20 12:55:00 EDT, [facility] #[id number], Partial fill upon patient request if the [...] Refills, Soft Stop, 10/02/20 11:57:00 EST, Powder, [facility] #[id number], Partial fill upon patient... Start Date: 10/02/20 [...]
--- OUTSIDE RECORDS SUMMARY | 2024-01-27 11:37 | XMS_ITS | Continuity of Care Document ---
Author Organization [facility] Address [address] [place] [address]- Care Team Providers Care Supervisor Water Treatment Plant Name Role Phone Maranda WILCOX, Silvio Martinez Primary Care Physician Encounter [facility] Date(s): 12/28/20 - 12/29/[address] [address]- Discharge Disposition: A-D/C Home Attending Physician: Semaj Velez MD Admitting Physician: Seamj Velez MD Referring Physician: Not on Staff, Referring [...] capsule, 1 Refills, Maintenance, 10/21/19 11:17:00 EST, [facility] #[id number], 1 capsule By Mouth 3 times a [...] 04/09/21 14:58:00 EDT, 04/09/20 14:57:00 EDT, Tablet, [facility] #[id number], 169, cm, 04/05/20 12:55:00 EDT, Height, 85, [...] 3 Refills, Maintenance, 10/16/20 16:21:00 EST, Tablet, [facility] #[id number], Partial fill upon patient request if the prescription is for a schedul... Start Date: 10/16/20 Stop Date: 02/13/21 Status: Ordered ondansetron 8 mg oral tablet, disintegrating 1 tablet = 8 mg, By Mouth, 3 times a day, PRN Nausea & Vomiting, # 30 tablet, 0 Refills, Maintenance, 12/26/20 12:55:00 EDT, [facility] #[id number], Partial fill upon patient request if the [...] Refills, Maintenance, 12/26/20 12:54:00 EDT, ER Tablet, [facility] #[id number], 170, cm, 12/26/20 9:55:00 EDT, Height, 84.65, [...] Refills, Soft Stop, 10/02/20 11:57:00 EST, Powder, [facility] #[id number], Partial fill upon patient... Start Date: 10/02/20 Status: Ordered SoluCortef Inj See Instructions, 0 Refills, Maintenance, 12/29/20 21:48:00 EDT, Partial fill upon patient request if the prescription is for a schedule II opioid drug. Start Date: 12/29/20 Status: Ordered Toradol Inj 10 mg, Injection, IV Push Slowly, Once, STAT, 12/28/20 23:51:00 EDT, Stop date 12/28/20 23:51:00 EDT Start Date: 12/28/20 Stop Date: 12/28/20 Status: Completed traZODone 150 mg oral tablet 1 tablet [...] Range]: 1 2 3 Height 170 cm (12/28/20 9:09 PM) Weight 81.9 kg (12/28/20 9:09 PM) Oxygen Saturation [94-100 %] 97 % (12/29/20 2:30 AM) 98 % (12/29/20 12:33 AM) 98 % (12/28/20 11:20 PM) Pulse Rate [55-90 bpm] 91 bpm *H* (12/29/20 2:30 AM) 84 bpm (12/29/20 12:33 AM) 80 bpm (12/28/20 11:20 PM) Blood Pressure [90-138/55-84 mm Hg] 131/100mm Hg (12/29/20 2:30 AM) 131/92mm Hg (12/29/20 12:33 AM) 138/85mm Hg (12/28/20 11:20 PM) Respiratory Rate [16-30 br/min] 15 br/min *L* (12/29/20 2:30 AM) 16 br/min (12/29/20 12:33 AM) 16 br/min (12/29/20 12:28 AM) Temperature [96.8-100.4 DegF] 96 DegF *L* (12/28/20 9:09 PM) Mode of Delivery (Oxygen) Room air (12/29/20 2:30 AM) Room air (12/29/20 12:33 AM) Room air (12/28/20 11:20 PM) Blood pressure sites Arm, left (12/28/20 10:13 PM) Arm, left (12/28/20 9:09 PM) Temperature Route Temporal (12/28/20 9:09 PM) Dry Weight 81.9 kg (12/28/20 9:09 PM) Weight Obtained Via Standing scale (12/28/20 9:09 PM) Dry Weight Obtained Via Standing scale (12/28/20 9:09 PM) Social History Social History Type Response Smoking Status 10 or more cigarette s (2 pack or more)/day in last 30 days entered on: 08/06/19 Sex
--- OUTSIDE RECORDS SUMMARY | 2024-01-27 11:37 | XMS_ITS | Continuity of Care Document ---
Author Organization [facility] Address [address] [place] [address]- Care Team Providers Care Children'S Choir Director Name Role Phone Maranda WILCOX, Silvio Martinez Primary Care Physician Encounter [facility] Date(s): 05/16/20 - 06/15/20 [facility] [address] [place] [address]- [facility] Allergies, Adverse Reactions, Alerts Substance [...] mL, Refills 11, Tot. Refills 11, Maintenance, [facility]: [id number], 05/08/20 16:20:00 EDT, Supply, 169, cm, 04/15/20 [...] capsule, 1 Refills, Maintenance, 10/21/19 11:17:00 EST, [facility] #[id number], 1 capsule By Mouth 3 times a [...] 04/09/21 14:58:00 EDT, 04/09/20 14:57:00 EDT, Tablet, [facility] #[id number], 169, cm, 04/05/20 12:55:00 EDT, Height, 85, [...] tablet, 3 Refills, Maintenance, 05/28/20 11:56:00 EDT, [facility] #[id number], 170, cm, 05/27/20 0:11:00 EDT, Height,90.4, kg, [...] Acute 04/30/21 16:58:00 EDT, 04/30/20 16:57:00 EDT, [facility] #[id number], 169, cm, 04/15/20 17:38:00 EDT, Height, 85, kg, 03/15/20 2:33:00 EDT, Dry Weight Start Date: 04/30/20 Stop Date: 04/30/21 Status: Ordered methylprednisolone 2 gm injectable powder for injection See Instructions, inject 4 grams IM for adrenal crisis, # 48 Gm, 11 Refills, Acute 06/08/21 12:08:00 EDT, 05/03/21 10:04:00 EDT, [facility] #[id number], 169, cm, 04/15/20 17:38:00 EDT, Height, 85, kg, 03/15/20 2:33:00 EDT, Dry Weight Start Date: 05/03/21 Stop Date: 06/08/21 Status: Ordered methylprednisolone 2 gm injectable powder for injection See Instructions, inject 4 grams IM for adrenal crisis, # 48 Gm, 3 Refills, Acute 05/03/21 10:04:00EDT, 05/03/20 10:03:00 EDT, [facility] #[id number], 169, cm, 04/15/20 17:38:00 EDT, Height, 85, kg, 03/15/20 2:33:00 EDT, Dry Weight Start Date: 05/03/20 Stop Date: 05/03/21 Status: Ordered methylprednisolone 2 gm injectable powder for injection See Instructions, inject 4 grams IM for adrenal crisis, # 48 Gm, 3 Refills, Acute 05/03/21 11:58:00EDT, 05/03/21 10:04:00 EDT, [facility], 169, cm, 04/15/20 17:38:00 [...] 11 Refills, Soft Stop, 05/03/20 16:07:00 EDT, [facility] #[id number], 169, cm, 04/15/20 17:38:00 EDT, Height, 85, [...] Refills, Maintenance, 12/05/19 20:49:00 EDT, DIS Tablet, [facility] #[id number], 170, cm, 12/05/19 19:19:00 EDT, Height, 88.7, [...]
--- OUTSIDE RECORDS SUMMARY | 2024-01-27 11:37 | XMS_ITS | Continuity of Care Document ---
Author Organization [facility] Address [address] [place] [address]- Care Team Providers Care Parachute Harness Rigger Name Role Phone Bienvenido WILCOX, Agustín Joaquin Primary Care Physician Encounter [facility] Date(s): 05/07/21 - 06/06/21 [facility] [address] [place] [id number] Allergies, Adverse Reactions, Alerts Substance Reaction Severity [...] tablet, 0 Refills, Maintenance, 12/26/20 12:55:00 EDT, [facility] #[id number], Partial fill upon patient request if the [...] Refills, Soft Stop, 04/15/21 10:31:00 EDT, Powder, [facility]/pharmacy #[id number], Partial fill upon patient request [...] 0 Refills, Maintenance, 01/20/21 7:49:00 EDT, Tablet, [facility] #[id number], Partial fill upon patient request if the [...]
--- OUTSIDE RECORDS SUMMARY | 2024-01-27 11:37 | XMS_ITS | Continuity of Care Document ---
Author Organization [facility] Address [address] [place] [address]- Care Team Providers Care Deputy Head Name Role Phone Maranda WILCOX, Silvio Martinez Primary Care Physician Encounter [facility] Date(s): 01/14/21 - 02/13/21 [facility] [address] [place] [address]- Allergies, Adverse Reactions, Alerts Substance Reaction Severity [...] tablet, 0 Refills, Maintenance, 12/26/20 12:55:00 EDT, [facility] #[id number], Partial fill upon patient request if the prescription is for a schedule II opioid drug., 170, cm,... Start Date: 12/26/20 Status: Ordered Potassium Chloride = 40 mEq, By Mouth, 2 times a day, 0 Refills, Maintenance, 01/20/21 5:39:00 EDT, Partial fill upon patient request if the prescription is for a schedule II opioid drug. Start Date: 01/20/21 Status: Ordered Potassium Chloride (Ahg-Vbva-Bcg M20) 20 mEq oral tablet, extended release 1 tablet = 20 mEq, By Mouth, 2 times a day, # 10 tablet, 0 Refills, Maintenance, 01/20/21 7:48:00 EDT, [facility] #[id number], Partial fill upon patient request if the [...] Refills, Soft Stop, 10/02/20 11:57:00 EST, Powder, [facility] #[id number], Partial fill upon patient... Start Date: 10/02/20 [...] 0 Refills, Maintenance, 01/20/21 7:49:00 EDT, Tablet, [facility] #[id number], Partial fill upon patient request if the [...]
--- OUTSIDE RECORDS SUMMARY | 2024-01-27 11:37 | XMS_ITS | Continuity of Care Document ---
Author Organization [facility] Address [address] [place] [id number]- Care Team Providers Care Mail Officer Name Role Phone Bienvenido WILCOX, Agustín Joaquin Primary Care Physician Encounter [facility] Date(s): 03/29/23 - 04/28/23 [facility] [address] [place] [id number]- Allergies, Adverse Reactions, Alerts Substance Reaction Severity Status propranolol Rash Active Inderal n/v,tachcardia Active Cefzil Hives Active Xarelto rash Active Lexapro n/v Active Zoloft tachycardia n/v Active Nardil Palpitations - rapid N&V - Nausea and vomiting C/O - a headache Active Haldol Active Compazine severe anxiety Hives [...] Other : Medications (Vitamin D3) Cholecalciferol 400 JAIL units/mL oral syringe 1 mL = 10 [...] 12/31/22 14:22:00 EDT, Route to Pharmacy Electronically, [facility] #[id number], Partial fill upon patient request if the prescription is for a schedule II opi... Start Date: 12/31/22 Status: Ordered Aspirin Low Dose 81 mg oral delayed release tablet 1 tablet, By Mouth, Daily, # 30 tablet, 3 Refills, Maintenance, 08/17/22 15:43:00 EST, [facility] #[id number], 170, cm, 05/13/22 17:18:00 EDT, Height, 88.8, [...] 01/08/21 13:59:00 EDT, Route to Pharmacy Electronically, [facility] #[id number], Partial fill upon patient request if the prescription is for a sched... Start Date: 01/08/21 Status: Ordered Flonase 50 mcg/inh nasal spray 2 sprays, Nares, Both, 2 times a day, PRN Congestion, # 16 Gm, 0 Refills, Maintenance, 08/20/20 11:17:00 EST, [place], [facility] #[id number], Partial fill upon patient request if the prescriptionis for a schedule II opioid drug., 170, cm, 2... Start Date: 08/20/20 Status: Ordered gabapentin 300 mg oral capsule 300 mg, 1, capsule, By Mouth, 2 times a day, # 60 capsule, Refills 4, Tot. Refills 4, Maintenance, 11/11/22 15:13:00 EST, Route to Pharmacy Electronically, [facility] #[id number], Partial fill upon patient request if the [...] 12/31/22 14:22:00 EDT, Route to Pharmacy Electronically, [facility] #[id number], Partial fill upon patient request if the prescription is for a sched... Start Date: 12/31/22 Stop Date: 12/26/23 Status: Ordered KlonoPIN 1 mg oral tablet 1 tablet = 1 mg, By Mouth, 2 times a day, dose is BID, # 60 tablet, 4 Refills, Maintenance, 03/10/23 15:33:00 EDT, [facility] #[id number], NO EARLY REFILLS, 170, cm, 02/01/23 7:48:00 [...] tablet, 0 Refills, Maintenance, 12/31/22 14:21:00 EDT, [facility] #[id number], Partial fill upon patient request if the prescription is for a schedule II opioid drug., 170, cm, 12/31/22 13:57:00 ED... Start Date: 12/31/22 Status: Ordered nitroglycerin 0.4 mg sublingual tablet 1 tablet, Sublingual, Every 5 minutes, PRN NEEDED FOR CHEST PAIN MAX 3 DOSES IN 15 MINUTES IF PAIN PERSISTS CALL 911, # 100 tablet, 3 Refills, Maintenance, 12/21/22 11:43:00 EDT, [facility] #[id number], 170, cm, 05/13/22 17:18:00 EDT, Height,... Start Date: 12/21/22 Status: Ordered ondansetron 8 mg oral tablet, disintegrating 1 tablet = 8 mg, By Mouth, 3 times a day, PRN Nausea & Vomiting, # 30 tablet, 0 Refills, Maintenance, 12/26/20 12:55:00 EDT, [email or web address] #[id number], Partial fill upon patient request if the [...] capsule, 4 Refills, Maintenance, 11/11/22 15:17:00 EST, [facility] #[id number], Partial fill upon patient request if the [...] 03/10/23 15:36:00 EDT, Route to Pharmacy Electronically, [facility] #[id number], Partial fill upon patient request if the [...] Refills, Soft Stop, 04/20/22 10:54:00 EDT, [place], [facility] #[id number], Partial fill upon patient... Start Date: 04/20/22 Status: Ordered spironolactone 25 mg oral tablet 25 mg, 1, tablet, By Mouth, Daily, # 90 tablet, Refills 3, Tot. Refills 3, Maintenance, 09/13/22 16:11:00 EST, Route to Pharmacy Electronically, [facility] #[id number], Partial fill upon patientrequest if the prescription is for a schedule II op... Start Date: 09/13/22 Stop Date: 09/08/23 Status: Ordered traZODone 300 mg oral tablet 1 tablet = 300 mg, By Mouth, Daily at bedtime, # 30 tablet, 4 Refills, Maintenance, 11/11/22 15:09:00 EST, [facility] #[id number], Partial fill upon patient request if the [...] Team Personnel Name: Daina Ibrahim RN Position: [facility] ED RN W/OE and Tasks Member Role: Primary Care Nurse Name: Madeline Baird RN Position: [facility] ED RN W/OE and Tasks Member Role: Primary Care Nurse Name: Teresa Carpio Position: [facility] RN Member Role: Primary Care Nurse Name: Inge Elizabeth RN Position: [facility] SN RN Member Role: Primary Care Nurse Name: Kelley Prasad RN Position: [facility] RN Member Role: Primary Care Nurse Name: Cindy Medeiros RN Position: [facility] RN Member Role: Primary Care Nurse Name: Linnette De La O RN Position: [facility] SHIPPING AND RECEIVING ASSISTANT Member Role: Primary Care Nurse Name: Alina Castillo NP Position: [facility] Associate Professional Member Role: Primary Care Nurse Address: Address: [address] [place] [address]- [place] Name: Mary Anne Kilpatrick RN Position: [facility] MR W/ Merge Member Role: Primary Care Nurse Name: Agustín Faria MD Position: [facility] Outreach Member Role: PCP Address: Address: [address] [facility] [address] [facility] [address] [place]ín [place] [address]- [place] Name: Nicole Hernández RN Position: [facility] RN Member Role: Primary Care Nurse Name: Douglas Harris Position: [facility] Cardio/Pulm Mgr ([facility]) Member Role: Primary Care Nurse Name: Lindsay Srinivasan CNM Position: [facility] Tree Topper Member Role: Primary Care Nurse Address: Address: [address] [facility] [place] [address]- [place] Name: Larissa Olson [place] Position: [facility] RN Member Role: Primary Care Nurse Name: Karen Roa RN Position: [facility] ED RN W/OE and Tasks Member Role: Primary Care Nurse Name: Mary Alice Stevens RN Position: [facility] RN Member Role: Primary Care Nurse Name: Beverly Grey Position: [facility] RN Member Role: Primary Care Nurse Name: Alexy Geronimo RN Position: [facility] RN Member Role: Primary Care Nurse Name: Raúl Rudolph DO Position: [facility] LOG HAULER MD Member Role: Lifetime LOG HAULER Physician Address: Address: [address] [facility] [place] [address]- [place] Name: Evelyn Haynes RN Position: [facility] RN Member Role: Primary Care Nurse Name: Crissy Metzger RN Position: [facility] RN Member Role: Primary Care Nurse Name: Elisa Gilbert RN Position: [facility] RN Member Role: Primary Care Nurse Name: Corina Solorio RN Position: [facility] AMB Nurse Member Role: Primary Care Nurse Name: Shawnee Lane RN Position: [facility] ED RN W/OE and Tasks Member Role: Primary Care Nurse Name: Erna Douglass RN Position: [facility] SN RN Member Role: Primary Care Nurse Name: Keyana Ndiaye RN Position: [facility] Hospital Site Technician Member Role: Primary Care Nurse Name: Anabella Nicholson RN Position: [facility] AMB Nurse Member Role: Primary Care Nurse Name: Brenda Tomas RN Position: [facility] Outreach Member Role: Primary Care Nurse Name: Ramona Ybarra RN Position: [facility] RN Member Role: Primary Care Nurse Address: Address: [address] [place] [id number]- Name: Nancy Gallagher RN Position: [facility] Hospital Site Technician Member Role: Primary Care Nurse Name: Evelyn Allen RN Position: [facility] OB RN Member Role: Primary Care Nurse Name: Jackelin Watt RN Position: [facility] RN Member Role: Primary Care Nurse Name: Raymundo Elizabeth RN Position: [facility] SN RN Member Role: Primary Care Nurse Name: Opal Calderon RN Position: [facility] RN Member Role: Primary Care Nurse Name: Timym RNYadiel Position: [facility] SN RN Member Role: Primary Care Nurse Care Team Related Persons Name: BARTOLOME IBRAHIM Address: [address] [place] [address] Name: GIANLUCA IBRAHIM Address: [address] [place], [place] Name: ABBIE IBRAHIM Address: [address] [place], [place] Name: SIM CERDA Name: DIANE CERDA Address: [address] [place] [address] Name: SOLO CORRIGAN Address: [address] [place] [address] Name: SOLO FLORES Address: [address] [place] [address] Name: RAYMUNDO [place] Address: [address] [place] [address]
--- OUTSIDE RECORDS SUMMARY | 2024-01-27 11:37 | XMS_ITS | Continuity of Care Document ---
Author Organization [facility] Address [address] [place] [address]- Care Team Providers Care Repatcher Name Role Phone Dash WILCOX (AL), Paola Anderson Primary Care Physician Encounter [facility] Date(s): 09/26/23 - 09/26/[address] [address]- Discharge Disposition: A-D/C Home Attending Physician: Kael Kelley MD Admitting Physician: Kael Kelley MD Referring Physician: Not on Staff, Referring MD Allergies, Adverse Reactions, Alerts Substance Reaction Severity Status propranolol Rash Active droperidol-fentanyl 1 Active Cefzil Hives Active Lexapro n/v Active Xarelto rash [...] 0 Refills, Maintenance, 07/15/23 11:42:00 EDT, Tablet, [facility][id number], Partial fill upon patient request if the [...] 4 Refills, Maintenance, 08/10/23 14:21:00 EST, Tablet, [facility] #[id number], Partial fill upon patient request if the prescription is fora schedule II opioid drug., 170, cm, 08/05/23 3:21:... Start Date: 08/10/23 Stop Date: 01/07/24 Status: Ordered Metoprolol Tartrate 100 mg oral tablet 1 tablet, By Mouth, 2 times a day, # 60 tablet, 0 Refills, Maintenance, 09/10/23 16:43:00 EST, [facility] #[id number], 170, cm, 08/27/23 7:32:00 EST, Height, 99, [...] 0 Refills, Maintenance, 05/13/23 10:33:00 EDT, Tablet, [facility] #[id number], Partial fill upon patient request if the prescription is for a schedule II opioid drug., 1... Start Date: 05/13/23 Stop Date: 05/16/23 Status: Ordered oxyCODONE 10 mg oral tablet See Instructions, PRN as needed for pain, One half tablet By Mouth Every 4 hours, # 5 tablet, 0 Refills, Acute 09/27/23 11:46:00 EST, 09/26/23 11:45:00 EST, Tablet, [facility] #[id number], Partial fill upon patient request if the prescription is... Start Date: 09/26/23 Stop Date: 09/27/23 Status: Ordered OxyCODONE IR Tablet 5 mg, Tablet, By Mouth, Once, STAT, 09/26/23 9:58:00 EST, Stop date 09/26/23 9:58:00 EST Start Date: 09/26/23 Stop Date: 09/26/23 Status: Completed potassium chloride 10 mEq oral tablet, extended release 2 tablet = 20 mEq, By Mouth, Daily, # 14 tablet, 0 Refills, Soft Stop, 08/27/23 8:49:00 EST, ER Tablet, [facility] #[id number], Partial fill upon patient request if the [...] capsule, 4 Refills, Maintenance, 08/10/23 14:14:00 EST, [facility][id number], Partial fill upon patient request if the [...] Refills, Soft Stop, 05/27/23 14:16:00 EDT, Powder, [facility] #[id number], Partial fill upon patient... Start Date: 05/27/23 Status: Ordered spironolactone 25 mg oral tablet 1, tablet, By Mouth, Daily, # 30 tablet, Refills 0, Maintenance, 09/10/23 16:43:00 EST, Route to Pharmacy Electronically, [facility] #[id number], 170, cm, 08/27/23 7:32:00 EST, Height, 99, kg, 08/18/23 9:13:00 EST, Dry Weight Start Date: 09/10/23 Status: Ordered Wellbutrin SR 100 mg/12 hours oral tablet, extended release 1 tablet = 100 mg, By Mouth, Daily, # 30 tablet, 4 Refills, Maintenance, 08/10/23 14:26:00 EST, [facility] #[id number], Partial fill upon patient request if the [...] Exam Date Time Procedure Performing Provider Status 09/26/23 8:28 AM Chest 2 Views Frontal and Lat Macfarlan e , Ashley; Auth (Verified) Notes: (Chest 2 Views Frontal and Lat) Reason For Exam: Chest Pain;Other: RESULT: Chest 2 Views Frontal and Lat Examination: Chest performed on 09/26/2023. History: Chest pain. Findings: Frontal and lateral views of the chest are compared to a prior study dated 07/15/2023. Pacer is noted. The cardiac and mediastinal silhouettes are within normal limits. The lungs are clear. The osseous and soft tissue structures are unremarkable. Impression: There is no acute cardiopulmonary disease. WSN: [id number] Ordering Physician: Kael Kelley Dictated By: Cindy Jama MD Dictated Date/Time: 09/26/23 8:47 am Reviewed By: Cindy Jama MD Signed By: Cindy Jama MD Signed Date/Time: 09/26/23 8:47 am Transcribed By: DIANE Transcribed Date/Time: 09/26/23 8:46 am Vital Signs Most recent to oldest [Reference Range]: 1 2 3 Height 170 cm (09/26/23 11:43 AM) 170 cm (09/26/23 7:39 AM) Weight 93 kg (09/26/23 11:43 AM) 93 kg (09/26/23 7:39 AM) Oxygen Saturation [94-100 %] 100 % (09/26/23 11:43 AM) 97 % (09/26/23 11:17 AM) 99 % (09/26/23 7:39 AM) Pulse Rate [55-90 bpm] 60 bpm (09/26/23 11:43 AM) 68 bpm (09/26/23 11:17 AM) 60 bpm (09/26/23 7:39 AM) Body Mass Index [18.5-24.99 kg/m2] 32.18 kg/m2 *>HHI* (09/26/23 11:43 AM) Blood Pressure [90-138/55-84 mm Hg] 105/76mm Hg (09/26/23 11:43 AM) 99/61mm Hg (09/26/23 11:17 AM) 109/86mm Hg (09/26/23 7:39 AM) Respiratory Rate [16-30 br/min] 16 br/min (09/26/23 11:43 AM) 18 br/min (09/26/23 11:17 AM) 20 br/min (09/26/23 10:59 AM) Temperature [96.8-100.4 DegF] 96.5 DegF *L* (09/26/23 7:39 AM) Mode of Delivery (Oxygen) Room air (09/26/23 11:43 AM) Room air (09/26/23 11:17 AM) Room air (09/26/23 7:39 AM) Blood pressure sites Arm, right (09/26/23 11:43 AM) Temperature Route Temporal (09/26/23 7:39 AM) Dry Weight 93 kg (09/26/23 11:43 AM) 93 kg (09/26/23 7:39 AM) Social History Social History Type Response [...] Unknown Unknown Active Un known Note * Warren WILCOX, Kael Castro: PERFORM Event Display: Patient Education Leaflets Authored Date: [id number] Sciatica ?? [id number] Sciatica Sciatica is a condition that causes pain in the low back that spreads down into the buttock, hip, and leg. Sometimes the leg pain can happen without any back pain. Sciatica happens when a spinal nerve is irritated or has pressure put on it as it comes out of the spinal canal in the low back. This most often happens when a bulge or rupture of a nearby spinal disk presses on the nerve. Sciatica canalso be caused by a narrowing of the spinal canal (spinal stenosis) or spasm of the muscle in the buttocks that the sciatic nerve passes through (piriformis muscle). Sciatica may also be called lumbar radiculopathy. Sciatica may start after a sudden twisting or bending force, such as in a car accident. Or it can happen after a simple awkward movement. In either case, muscle spasm often also happens. Muscle spasmmakes the pain worse. A healthcare provider makes a diagnosis of sciatica from your symptoms and a physical exam. Unless you had an injury from a car accident or fall, you usually won???t have X-rays taken at this time. This is because the nerves and disks in your back can???t be seen on an X-ray. If the provider suspects a compressed nerve based on your history or exam, you'll need to schedule an MRI scan. Nerve conductions studies and electromyography are nerve tests that can also help find the cause of nerve pain. Signs of a compressed nerve include loss of strength or reflexes in a leg. Most sciatica gets better with medicine, exercise, and physical therapy. If your symptoms continue after medical treatment, you may need surgery or shots (injections) to your low back. This will depend on how severe your symptoms are. Home care Follow these tips when caring for yourself at home: ??? As soon as possible, start sitting up or walking. This will help you prevent problems that come from staying in bed for long periods. ??? When in bed, try to find a position that is comfortable. A firm mattress is best. Try lying flat on your back with pillows under your knees. You can also try lying on your side with your knees bent up toward your chest and a pillow between your knees. ??? Don't sit for long periods. This puts more stresson your low back than standing or walking. ??? Use heat from a hot shower, hot bath, or heating padto help ease pain. Massage can also help. You can also try using an ice pack. You can make your ownice pack by putting ice cubes in a plastic bag that seals at the top. Wrap the bag in a thin towel.Try both heat and cold to see which works best. Use the method that feels best for 20 minutes several times a day. ??? You may use acetaminophen or ibuprofen to ease pain, unless another pain medicine was prescribed. Note: If you have chronic liver or kidney disease, talk with your healthcare provider before taking these medicines. Also, talk with your provider if you???ve had a stomach ulcer or digestive tract bleeding. ??? Use safe lifting methods. Don???t lift anything heavier than advised until all of the pain is gone. ?? Follow-up care Follow up with your healthcare provider, or as advised. You may need physical therapy or more tests. If X-rays were taken, a radiologist will look at them. You'll be told of any new findings that may affect your care. ?? When to get medical care Call your healthcare provider right away??if any of these occur: ??? Pain gets worse even after taking prescribed medicine ??? Weakness or numbness in 1 or both legs or hips ??? Numbness in your groin or genital area ??? You can???t control your bowel or bladder ??? Fever 100.4??F (38??C) or higher, or as advised by your provider ??? Redness or swelling over your back or spine? Last Reviewed Date: 2022 ?? [id number] [employer]. All rights reserved. This information is not intended as a substitute for professional medical care. Always follow your healthcare professional's instructions. ?? * Warren WILCOX, Kael Castro: PERFORM Event Display: Patient Education Leaflets Authored Date: [id number] Uncertain Causes of Chest Pain ?? [id number] Uncertain Causes of Chest Pain Chest pain can happen for a number of reasons. Sometimes the cause can't be determined. If your??condition does not seem serious, and your pain does not appear to be coming from your heart, your healthcare provider may recommend watching it closely. Sometimes the signs of a serious problem take more time to appear. Many problems not related to your heart can cause chest pain. These include: ??? Musculoskeletal. Costochondritis is an inflammation of the tissues around the ribs that can occur from trauma or overuse injuries, or a strain of the muscles of the chest wall. ??? Respiratory. Pneumonia, collapsed lung (pneumothorax), or inflammation of the lining of the chest and lungs (pleurisy). ??? Gastrointestinal. Esophageal reflux, heartburn, ulcers, or gallbladder disease. ??? Anxiety and panic disorders ??? Nerve compression and inflammation ??? Rare problems such as aortic aneurysm or aortic dissection (a swelling of the large artery coming out of the heart or a tear in the wall of the artery), or pulmonary embolism (a blood clot in the lungs). Home care After your visit, follow these recommendations: ??? Rest today and avoid strenuous activity. ??? Take any prescribed medicine as directed. ??? Be aware of any recurrent chest pain and notice any changes ?? Follow-up care Follow up with your healthcare provider if you don't start to feel better within 24 hours, or as advised. ?? Call 911 Call 911 if any of these occur: ??? A change in the type of pain: if it feels different, becomes more severe, lasts longer, or begins to spread into your shoulder, arm, neck, jaw or back ??? Shortness of breath or increased pain with breathing ??? Weakness, dizziness, or fainting ??? Rapid heartbeat ??? Crushing sensation in your chest ??? Coughing up more than a small amount of blood. ?? When to seek medical advice Call your healthcare provider right away if any of the following occur: ??? Cough with dark coloredsputum (phlegm) or small amount of blood ??? Fever of 100.4??F??(38??C) or higher, or as directed by your healthcare provider ??? Swelling, pain or redness in one leg ?? Last Reviewed Date: 2021 ?? [id number] [employer]. All rights reserved. This information is not intended as a substitute for professional medical care. Always follow your healthcare professional's instructions. ?? Patient Care team information Care Team Personnel Name: Dash WILCOX (AL) , Paola Anderson Position: [facility] Outreach Member Role: PCP Address: Address: [address] [place] [id number] [place] Name: Daina Ibrahim RN Position: [facility] ED RN W/OE and Tasks Member Role: Primary Care Nurse Name: Madeline Baird RN Position: [facility] ED RN W/OE and Tasks Member Role: Primary Care Nurse Name: Teresa Carpio Position: [facility] RN Member Role: Primary Care Nurse Name: Inge Elizabeth RN Position: [facility] SN RN Member Role: Primary Care Nurse Name: Kelley Prasad RN Position: [facility] RN Member Role: Primary Care Nurse Name: Cindy Medeiros RN Position: [facility] RN Member Role: Primary Care Nurse Name: Linnette De La O RN Position: [facility] HUMAN RESOURCES OFFICE ASSISTANT Member Role: Primary Care Nurse Name: Alina Castillo NP Position: [facility] Associate Professional Member Role: Primary Care Nurse Address: Address: [address] [place] [address]- Name: Mary Anne Kilpatrick RN Position: [facility] MR W/ Merge Member Role: Primary Care Nurse Name: Nicole Hernández RN Position: [facility] RN Member Role: Primary Care Nurse Name: Lindsay Srinivasan CNM Position: [facility] Angle Shearer Member Role: Primary Care Nurse Address: Address: [address] [place] [address]- Name: Kiana Sabillon RN Position: [facility] RN Member Role: Primary Care Nurse Name: Larissa Olson [place] Position: [facility] RN Member Role: Primary Care Nurse Name: Karen Roa RN Position: [facility] ED RN W/OE and Tasks Member Role: Primary Care Nurse Name: Mary Alice Stevens RN Position: [facility] RN Member Role: Primary Care Nurse Name: Beverly Grey Position: [facility] RN Member Role: Primary Care Nurse Name: Alexy Geronimo RN Position: [facility] ED RN W/OE and Tasks Member Role: Primary Care Nurse Name: Raúl Rudolph DO Position: [facility] HOSIERY KNITTER MD Member Role: [facility] KNITTER Physician Address: Address: [address] [place] [address]- [place] Name: Evelyn Haynes RN Position: [facility] RN Member Role: Primary Care Nurse Name: Crissy Metzger RN Position: [facility] RN Member Role: Primary Care Nurse Name: Elisa Gilbert RN Position: [facility] RN Member Role: Primary Care Nurse Name: Corina Solorio RN Position: [facility] AMB Nurse Member Role: Primary Care Nurse Name: Shawnee Lane RN Position: [facility] ED RN W/OE and Tasks Member Role: Primary Care Nurse Name: Ana Estrada RN Position: [facility] RN Member Role: Primary Care Nurse Name: Erna Douglass RN Position: [facility] SN RN Member Role: Primary Care Nurse Name: Keyana Ndiaye RN Position: [facility] Mediator Member Role: Primary Care Nurse Name: Anabella Nicholson RN Position: [facility] AMB Nurse Member Role: Primary Care Nurse Name: Brenda Tomas RN Position: [facility] Outreach Member Role: Primary Care Nurse Name: Ramona Ybarra RN Position: [facility] RN Member Role: Primary Care Nurse Address: Address: [address] [place] [address]- Name: Nancy Gallagher RN Position: [facility] Mediator Member Role: Primary Care Nurse Name: Evelyn Allen RN Position: [facility] OB RN Member Role: Primary Care Nurse Name: Jackelin Watt RN Position: [facility] RN Member Role: Primary Care Nurse Name: Raymundo Elizabeth RN Position: [facility] SN RN Member Role: Primary Care Nurse Name: Opal Calderon RN Position: [facility] RN Member Role: Primary Care Nurse Name: Yadiel Warner RN Position: [facility] SN RN Member Role: Primary Care Nurse Name: Kael Kelley MD Position: [facility] ED Medicine MD Member Role: Admitting Physician Address: Address: [address] [facility] [place] [address]- [place] Name: Alfred Oseguera RN Position: [facility] ED RN W/OE and Tasks Member Role: Patient Care Provider Name: Meche Larson Position: [facility] ED TA [facility] Member Role: Patient Care Provider Care Team Related Persons Name: BARTOLOME IBRAHIM Address: [address] [place], [place] Name: GIANLUCA IBRAHIM Address: [address] [place], [place] Name: ABBIE IBRAHIM Address: [address] [place] [address] Name: SIM CERDA Name: DIANE CERDA Address: [address] [place] [address] Name: SOLO CORRIGAN Address: [address] [place], [place] Name: SOLO FLORES Address: [address] [place], [place] Name: RAYMUNDO MAYFIELD Address: [address] [facility] [place] [address]
--- OUTSIDE RECORDS SUMMARY | 2024-01-27 11:37 | XMS_ITS | Continuity of Care Document ---
Author Organization [facility] Address [address] [place] [address]- Care Team Providers Care Angle Shear Set Up Operator Name Role Phone Bienvenido WILCOX, Agustín Joaquni Primary Care Physician [phone] [place] [facility] [place] [facility] [address] [place] [address] Allergies, Adverse Reactions, Alerts Substance [...] tablet, 0 Refills, Maintenance, 12/26/20 12:55:00 EDT, [facility] #[id number], Partial fill upon patient request if the prescription is for a schedule II opioid drug., 170, cm,... Start Date: 12/26/20 Status: Ordered Potassium Chloride = 40 mEq, By Mouth, 2 times a day, 0 Refills, Maintenance, 01/20/21 5:39:00 EDT, Partial fill upon patient request if the prescription is for a schedule II opioid drug. Start Date: 01/20/21 Status: Ordered Potassium Chloride (Chb-Huhp-Tev M20) 20 mEq oral tablet, extended release 1 tablet = 20 mEq, By Mouth, 2 times a day, # 10 tablet, 0 Refills, Maintenance, 01/20/21 7:48:00 EDT, [facility] #[id number], Partial fill upon patient request if the [...] 0 Refills, Maintenance, 01/20/21 7:49:00 EDT, Tablet, [facility] #[id number], Partial fill upon patient request if the [...]
--- OUTSIDE RECORDS SUMMARY | 2024-01-27 11:37 | XMS_ITS | Continuity of Care Document ---
Author Organization [facility] Address [address] [place] [address]- Care Team Providers Care Aegis Console Operator Track Name Role Phone Agustín Faria MD Primary Care Physician Encounter [facility] Date(s): 05/13/22 - 05/13/[address] [address]- Encounter Diagnosis Toe contusion(Final) - 05/13/22 Discharge Disposition: A-D/C Home Attending Physician: Jonathan Dupont MD Admitting Physician: Jonathan Dupont MD Referring Physician: Not on Staff, Referring [...] tablet, 0 Refills, Maintenance, 12/26/20 12:55:00 EDT, [facility] #[id number], Partial fill upon patient request if the [...] Refills, Soft Stop, 04/20/22 10:54:00 EDT, Powder, [facility] #[id number], Partial fill upon patient... Start Date: 04/20/22 [...] Exam Date Time Procedure Performing Provider Status 05/13/22 3:34 PM Toe Great Left Foot Liliya Lockwood; Auth (Verified) Notes: (Toe Great Left Foot) Reason For Exam: Trauma RESULT: Toe Great Left Foot Toe Great Left Foot, 3 views Hx of Present Illness: Pt reports stubbing her L great toe yesterday and the nail is hanging off .Pt reports throbbing pain when walking.; Reason: Trauma; Clinical Question(s): Fracture COMPARISON: 01/06/2022. FINDINGS: No fractures or bone lesions. No arthritic changes. Mild soft tissue swelling of the first digit. On the oblique image, there is a vertical lucency through the nail shadow of the first digit, consistent with the given history of injury to the nail of the first digit. IMPRESSION: Soft tissue injury. No acute fracture or dislocation. WSN: [id number] Ordering Physician: Jonathan Dupont Dictated By: Petros Rivera MD Dictated Date/Time: 05/13/22 3:40 pm Reviewed By: Petros Rivera MD Signed By: Petros Rivera MD Signed Date/Time: 05/13/22 3:40 pm Transcribed By: DIANE Transcribed Date/Time: 05/13/22 3:37 pm Vital Signs Most recent to oldest [Reference Range]: 1 2 3 Height 170 cm (05/13/22 5:18 PM) 170 cm (05/13/22 2:49 PM) 170 cm (05/13/22 2:46 PM) Weight 88.8 kg (05/13/22 5:18 PM) 88.8 kg (05/13/22 2:49 PM) 88.8 kg (05/13/22 2:46 PM) Oxygen Saturation [94-100 %] 96 % (05/13/22 5:18 PM) 97 % (05/13/22 2:46 PM) Pulse Rate [55-90 bpm] 70 bpm (05/13/22 5:18 PM) 80 bpm (05/13/22 2:46 PM) Body Mass Index [18.5-24.99] 30.73 *>HHI* (05/13/22 5:18 PM) 30.73 *>HHI* (05/13/22 2:46 PM) Blood Pressure [90-138/55-84 mm Hg] 134/74mm Hg (05/13/22 5:18 PM) 126/77mm Hg (05/13/22 2:46 PM) Respiratory Rate [16-30 br/min] 20 br/min (05/13/22 5:18 PM) 18 br/min (05/13/22 2:46 PM) Temperature [96.8-100.4 DegF] 97 DegF (05/13/22 2:46 PM) Mode of Delivery (Oxygen) Room air (05/13/22 5:18 PM) Room air (05/13/22 2:46 PM) Blood pressure sites Arm, right (05/13/22 5:18 PM) Arm, left (05/13/22 2:46 PM) Temperature Route Temporal (05/13/22 2:46 PM) Dry Weight 88.8 kg (05/13/22 5:18 PM) 88.8 kg (05/13/22 2:49 PM) 88.8 kg (05/13/22 2:46 PM) Weight Obtained Via Standing scale (05/13/22 2:46 PM) Social History Social History Type Response [...]
--- OUTSIDE RECORDS SUMMARY | 2024-01-27 11:37 | XMS_ITS | Continuity of Care Document ---
Author Organization [facility] Address [address] [place] [address]- Care Team Providers Care Living Coach Name Role Phone Dash WILCOX ([place]), Paola Anderson Primary Care Physician Encounter [facility] Date(s): 04/13/23 - 05/13/23 [facility] Ne[facility] [address] [place] [address] [place] [address]- Attending Physician: Maximo Cano Admitting Physician: Maximo [...] Other : Medications (Vitamin D3) Cholecalciferol 400 LONG-TERM units/mL oral syringe 1 mL = 10 [...] tablet, 3 Refills, Maintenance, 08/17/22 15:43:00 EST, [facility] #[id number], 170, cm, 05/13/22 17:18:00 EDT, Height, 88.8, [...] 01/08/21 13:59:00 EDT, Route to Pharmacy Electronically, [facility] #[id number], Partial fill upon patient request if the prescription is for a sched... Start Date: 01/08/21 Status: Ordered famotidine 20 mg oral tablet 20 mg, 1, tablet, By Mouth, Daily at bedtime, # 30 tablet, Refills 0, Tot. Refills 0, Maintenance, 05/13/23 10:33:00 EDT, Route to Pharmacy Electronically, [facility] #[id number], Partial fill upon patient request if the prescription is for a jose... Start Date: 05/13/23 Stop Date: 06/12/23 Status: Ordered Flonase 50 mcg/inh nasal spray 2 sprays, Nares, Both, 2 times a day, PRN Congestion, # 16 Gm, 0 Refills, Maintenance, 08/20/20 11:17:00 EST, [place], [facility] #[id number], Partial fill upon patient request if the prescriptionis for a schedule II opioid drug., 170, cm, ... Start Date: 08/20/20 Status: Ordered gabapentin 300 mg oral capsule 300 mg, 1, capsule, By Mouth, 2 times a day, # 60 capsule, Refills 4, Tot. Refills 4, Maintenance, 11/11/22 15:13:00 EST, Route to Pharmacy Electronically, [facility] #[id number], Partial fill upon patient request if the [...] 0 Refills, Maintenance, 05/13/23 10:33:00 EDT, Tablet, [facility] #[id number], Partial fill upon patient request if the prescription is for a schedule II opioid drug., 1... Start Date: 05/13/23 Stop Date: 05/16/23 Status: Ordered prazosin 2 mg oral capsule 2 capsule = 4 mg, By Mouth, Daily at bedtime, if PO intake is low or BP low below 110/70 only take one cap, # 60 capsule, 4 Refills, Maintenance, 11/11/22 15:17:00 EST, [facility] #[id number], Partial fill upon patient request if the [...] 03/10/23 15:36:00 EDT, Route to Pharmacy Electronically, [facility] #[id number], Partial fill upon patient request if the [...] Refills, Soft Stop, 04/20/22 10:54:00 EDT, Pow[place], [facility] #[id number], Partial fill upon patient... Start Date: 04/20/22 [...] information Care Team Personnel Name: Dash WILCOX ([place]) , Paola Anderson Position: [facility] Outreach Member Role: PCP Address: Address: [address] [place] [phone] [place] Name: Daina Ibrahim RN Position: [facility] ED RN W/OE and Tasks Member Role: Primary Care Nurse Name: Madeline Baird RN Position: [facility] ED RN W/OE and Tasks Member Role: Primary Care Nurse Name: Teresa Carpio Position: [facility] RN Member Role: Primary Care Nurse Name: Inge Elizabeth RN Position: [facility] SN RN Member Role: Primary Care Nurse Name: Kelley Prasad RN Position: [facility] RN Member Role: Primary Care Nurse Name: Cindy Medeiros RN Position: [facility] RN Member Role: Primary Care Nurse Name: Linnette De La O RN Position: [facility] MUFFLER INSTALLER Member Role: Primary Care Nurse Name: Alina Castillo NP Position: [facility] Associate Professional Member Role: Primary Care Nurse Address: Address: [address] [place] [address]- [place] Name: Mary Anne Kilpatrick RN Position: [facility] MR W/ Merge Member Role: Primary Care Nurse Name: Nicole Hernández RN Position: [facility] RN Member Role: Primary Care Nurse Name: Douglas Harris Position: [facility] Cardio/Pulm Mgr ([facility]) Member Role: Primary Care Nurse Name: Lindsay Srinivasan CNM Position: [facility] Regulator Pin Inserter Member Role: Primary Care Nurse Address: Address: [address] [facility] [place] [address]- [place] Name: Larissa Olson [place] Position: [facility] RN Member Role: Primary Care Nurse Name: Karen Roa RN Position: [facility] ED RN W/OE and Tasks Member Role: Primary Care Nurse Name: Mary Alice Stevens RN Position: [facility] RN Member Role: Primary Care Nurse Name: Beverly Grey Position: [facility] RN Member Role: Primary Care Nurse Name: Alexy Geronimo RN Position: [facility] RN Member Role: Primary Care Nurse Name: Raúl Rudolph DO Position: [facility] RATE QUOTING OPERATOR MD Member Role: Lifetime RATE QUOTING OPERATOR Physician Address: Address: [address] [facility] [place] [address]- [place] Name: Evelyn Haynes RN Position: [facility] RN Member Role: Primary Care Nurse Name: Crissy Metzger RN Position: [facility] RN Member Role: Primary Care Nurse Name: Elisa Gilbert RN Position: [facility] RN Member Role: Primary Care Nurse Name: Corina Solorio RN Position: [facility] AMB Nurse Member Role: Primary Care Nurse Name: Shawnee Lane RN Position: [facility] ED RN W/OE and Tasks Member Role: Primary Care Nurse Name: Erna Douglass RN Position: [facility] SN RN Member Role: Primary Care Nurse Name: Keyana Ndiaye RN Position: [facility] Hospital Newspaper Delivery Driver Member Role: Primary Care Nurse Name: Anabella Nicholson RN Position: [facility] AMB Nurse Member Role: Primary Care Nurse Name: Brenda Tomas RN Position: [facility] Outreach Member Role: Primary Care Nurse Name: Ramona Ybarra RN Position: [facility] RN Member Role: Primary Care Nurse Address: Address: [address] [place] [address]- Name: Nancy Gallagher RN Position: [facility] Hospital Newspaper Delivery Driver Member Role: Primary Care Nurse Name: Evelyn Allen RN Position: [facility] OB RN Member Role: Primary Care Nurse Name: Jackelin Watt RN Position: [facility] RN Member Role: Primary Care Nurse Name: Raymundo Elizabeth RN Position: [facility] SN RN Member Role: Primary Care Nurse Name: Opal Calderon RN Position: [facility] RN Member Role: Primary Care Nurse Name: Yadiel Warner RN Position: [facility] SN RN Member Role: Primary Care Nurse Care Team Related Persons Name: BARTOLOME IBRAHIM Address: home [address] [place] [address] Name: GIANLUCA IBRAHIM Address: [address] [place] [address] Name: ABBIE IBRAHIM Address: [address] [place] [address] Name: SIM CERDA Name: DIANE CERDA Address: [address] [place] [address] Name: SOLO CORRIGAN Address: [address] [place] [address] Name: SOLO FLORES Address: [address] [place] [address] Name: RAYMUNDO MAYFIELD Address: home [address] [place] [address]
--- OUTSIDE RECORDS SUMMARY | 2024-01-27 11:37 | XMS_ITS | Continuity of Care Document ---
Author Organization [facility] Address [address] [place] [address]- Care Team Providers Care Business Risk Consultant Name Role Phone Maranda WILCOX, Silvio Martinez Primary Care Physician Encounter [facility] Date(s): 11/20/20 - 12/20/20 [facility] [address] [place] [address]- Attending Physician: AdmMaximo diaz Admitting Physician: AdmtrMaximo [...] capsule, 1 Refills, Maintenance, 10/21/19 11:17:00 EST, [facility] #[id number], 1 capsule By Mouth 3 times a [...] 04/09/21 14:58:00 EDT, 04/09/20 14:57:00 EDT, Tablet, [facility] #[id number], 169, cm, 04/05/20 12:55:00 EDT, Height, 85, [...] 3 Refills, Maintenance, 10/16/20 16:21:00 EST, Tablet, [facility] #[id number], Partial fill upon patient request if the prescription is for a schedul... Start Date: 10/16/20 Stop Date: 02/13/21 Status: Ordered ondansetron 4 mg oral tablet 1 tablet = 4 mg, By Mouth, Every 8 hours, PRN Nausea & Vomiting, # 20 tablet, 0 Refills, Maintenance, 06/18/20 16:48:00 EDT, Tablet, [facility] #[id number], 170, cm, 06/18/20 15:14:00 EDT, Height, 90.4, kg, 06/18/20 15:14:00 EDT, Dry Weight Start Date: 06/18/20 Stop Date: 06/25/20 Status: Ordered ondansetron 8 mg oral tablet, disintegrating 1 tablet = 8 mg, By Mouth, 3 times a day, # 10 tablet, 0 Refills, Maintenance, 10/30/20 17:44:00 EST, [facility] #[id number], Partial fill upon patient request if the [...] Refills, Soft Stop, 10/02/20 11:57:00 EST, Powder, [facility] #[id number], Partial fill upon patient... Start Date: 10/02/20 [...]
--- OUTSIDE RECORDS SUMMARY | 2024-01-27 11:37 | XMS_ITS | Continuity of Care Document ---
Author Organization [facility] Address [address] [place] [address]- Care Team Providers Care Office Messenger Helper Name Role Phone Bienvenido WILCOX, Agustín Joaquin Primary Care Physician [phone] Encounter [facility] Date(s): 05/02/21 - 06/01/21 [facility] [address] [place] [id number] Allergies, Adverse Reactions, Alerts [...] tablet, 0 Refills, Maintenance, 12/26/20 12:55:00 EDT, [facility] #[id number], Partial fill upon patient request if the prescription is for a schedule II opioid drug., 170, cm,... Start Date: 12/26/20 Status: Ordered Potassium Chloride = 40 mEq, By Mouth, 2 times a day, 0 Refills, Maintenance, 01/20/21 5:39:00 EDT, Partial fill upon patient request if the prescription is for a schedule II opioid drug. Start Date: 01/20/21 Status: Ordered Potassium Chloride (Gny-Snik-Gtz M20) 20 mEq oral tablet, extended release 1 tablet = 20 mEq, By Mouth, 2 times a day, # 10 tablet, 0 Refills, Maintenance, 01/20/21 7:48:00 EDT, [facility] #[id number], Partial fill upon patient request if the [...] 0 Refills, Maintenance, 01/20/21 7:49:00 EDT, Tablet, [facility] #[id number], Partial fill upon patient request if the [...]
--- OUTSIDE RECORDS SUMMARY | 2024-01-27 11:37 | XMS_ITS | Continuity of Care Document ---
Author Organization [facility] Address [address] [place] [address]- Care Team Providers Care It Help Desk Associate Name Role Phone Dash WILCOX ([place]), Paola Anderson Primary Care Physician [place] [facility] Date(s): 07/06/23 - 08/05/23 [facility] [address] [place] [address]- Allergies, Adverse Reactions, Alerts Substance Reaction Severity [...] tablet, 3 Refills, Maintenance, 08/17/22 15:43:00 EST, [email or web address] #[id number], 170, cm, 05/13/22 17:18:00 EDT, Height, 88.8, kg, 05/13/22 17:18:00 EDT, Dry Weight Start Date: 08/17/22 Status: Ordered Ativan 1 mg oral tablet 1 tablet = 1 mg, By Mouth, 3 times a day, PRN for anxiety, # 11 tablet, 0 Refills, Maintenance, 07/15/23 11:42:00 EDT, Tablet, [facility] #[id number], Partial fill upon patient request if the [...] 01/08/21 13:59:00 EDT, Route to Pharmacy Electronically, [email or web address] #[id number], Partial fill upon patient request if the prescription is for a sched... Start Date: 01/08/21 Status: Ordered Flonase 50 mcg/inh nasal spray 2 sprays, Nares, Both, 2 times a day, PRN Congestion, # 16 Gm, 0 Refills, Maintenance, 08/20/20 11:17:00 EST, [place], [facility] #[id number], Partial fill upon patient request if the prescriptionis for a schedule II opioid drug., 170, cm, 2... Start Date: 08/20/20 Status: Ordered gabapentin 300 mg oral capsule See Instructions, 1 cap in the AM, 2 in the afternoon and 2 at bedtime, # 1 each, Refills 4, Tot. Refills 4, Maintenance, 11/11/22 15:13:00 EST, Instructions Replace Required Details, Route to Pharmacy Electronically, [email or web address] #[id number], Part... Start Date: 11/11/22 Status: Ordered Insulin [...] 08/12/23 8:24:00 EST, 08/05/23 8:24:00 EST, Tablet, [facility] #[id number], Partial fill upon patient request if the [...] 05/14/23 20:59:00 EDT, Route to Pharmacy Electronically, [email or web address] #[id number], Partial fill upon patient request if the [...] 0 Refills, Maintenance, 05/13/23 10:33:00 EDT, Tablet, [email or web address] #[id number], Partial fill upon patient request if the [...] 08/05/23 8:24:00 EST, Route to Pharmacy Electronically, [facility] #[id number], Partial fill upon p... Start Date: 08/05/23 Stop Date: 08/08/23 Status: Ordered prazosin 2 mg oral capsule 2 capsule = 4 mg, By Mouth, Daily at bedtime, if PO intake is low or BP low below 110/70 only take one cap, # 60 capsule, 4 Refills, Maintenance, 11/11/22 15:17:00 EST, [email or web address] #[id number], Partial fill upon patient request if the [...] 03/10/23 15:36:00 EDT, Route to Pharmacy Electronically, [email or web address] #[id number], Partial fill upon patient request if the [...] Refills, Soft Stop, 05/27/23 14:16:00 EDT, [place], [email or web address] #[id number], Partial fill upon patient... Start Date: 05/27/23 Status: Ordered spironolactone 25 mg oral tablet 25 mg, 1, tablet, By Mouth, Daily, # 30 tablet, Refills 3, Tot. Refills 3, Maintenance, 05/14/23 20:55:00 EDT, Route to Pharmacy Electronically, [email or web address] #[id number], Partial fill upon patientrequest if the prescription [...] Dash WILCOX ([place]) , Paola Anderson Position: [facility] Outreach Member Role: PCP Address: Address: [address] [place] [phone] [place] Name: Daina Ibrahim RN Position: [facility] ED RN W/OE and Tasks Member Role: Primary Care Nurse Name: Madeline Baird RN Position: [facility] ED RN W/OE and Tasks Member Role: Primary Care Nurse Name: Teresa Carpio Position: [facility] RN Member Role: Primary Care Nurse Name: Inge Elizabeth RN Position: [facility] SN RN Member Role: Primary Care Nurse Name: Kelley Prasad RN Position: [facility] RN Member Role: Primary Care Nurse Name: Cindy Medeiros RN Position: [facility] RN Member Role: Primary Care Nurse Name: Linnette De La O RN Position: [facility] MOTION PICTURE CRITIC Member Role: Primary Care Nurse Name: Alina Castillo NP Position: [facility] Associate Professional Member Role: Primary Care Nurse Address: Address: [address] [place] [address]- Name: Mary Anne Kilpatrick RN Position: [facility] MR W/ Merge Member Role: Primary Care Nurse Name: Nicole Hernández RN Position: [facility] RN Member Role: Primary Care Nurse Name: Lindsay Srinivasan CNM Position: [facility] Cnc Mechanic Member Role: Primary Care Nurse Address: Address: [address] [facility] [place] [address]- [place] Name: Larissa Olson [place] Position: [facility] RN Member Role: Primary Care Nurse Name: Karen Roa RN Position: [facility] ED RN W/OE and Tasks Member Role: Primary Care Nurse Name: Mary Alice Stevens RN Position: [facility] RN Member Role: Primary Care Nurse Name: Beverly Grey Position: [facility] RN Member Role: Primary Care Nurse Name: Alexy Geronimo RN Position: [facility] RN Member Role: Primary Care Nurse Name: Raúl Rudolph DO Position: [facility] CAR CLEANING SUPERVISOR MD Member Role: Lifetime CAR CLEANING SUPERVISOR Physician Address: Address: [address] [facility] [place] [address]- [place] Name: Evelyn Haynes RN Position: [facility] RN Member Role: Primary Care Nurse Name: Crissy Metzger RN Position: [facility] RN Member Role: Primary Care Nurse Name: Elisa Gilbert RN Position: [facility] RN Member Role: Primary Care Nurse Name: Corina Solorio RN Position: [facility] SN RN Member Role: Primary Care Nurse Name: Shawnee Lane RN Position: [facility] ED RN W/OE and Tasks Member Role: Primary Care Nurse Name: Erna Douglass RN Position: [facility] SN RN Member Role: Primary Care Nurse Name: Keyana Ndiaye RN Position: [facility] Golf Coach Member Role: Primary Care Nurse Name: Anabella Nicholson RN Position: [facility] AMB Nurse Member Role: Primary Care Nurse Name: Brenda Tomas RN Position: [facility] Outreach Member Role: Primary Care Nurse Name: Ramona Ybarra RN Position: [facility] RN Member Role: Primary Care Nurse Address: Address: [address] [place] [address]- [place] Name: Nancy Gallagher RN Position: [facility] Golf Coach Member Role: Primary Care Nurse Name: Evelyn Allen RN Position: [facility] OB RN Member Role: Primary Care Nurse Name: Jackelin Watt RN Position: [facility] RN Member Role: Primary Care Nurse Name: Raymundo Elizabeth RN Position: [facility] SN RN Member Role: Primary Care Nurse Name: Opal Calderon RN Position: S RN Member Role: Primary Care Nurse Name: Yadiel Warner RN Position: [facility] RN Member Role: Primary Care Nurse Care Team Related Persons Name: IBRAHIMBARTOLOME Address: [address] [place], [place] Name: GIANLUCA IBRAHIM Address: home [address] [place] [address] Name: ABBIE IBRAHIM Address: [address] [place], [place] Name: SIM CERDA Name: DIANE CERDA Address: [address] [place] [address] Name: SOLO CORRIGAN Address: [address] [place], [place] Name: SOLO FLORES Address: home [address] [place] [address] Name: RAYMUNDO MAYFIELD Address: [address] [place] [address]
--- OUTSIDE RECORDS SUMMARY | 2024-01-27 11:37 | XMS_ITS | Continuity of Care Document ---
Author Organization [facility] Address [address] [place] [address]- Care Team Providers Care Hair Assistant Name Role Phone Bienvenido WILCOX, Agustín Joaquin Primary Care Physician [phone] Encounter [facility] Date(s): 03/22/23 - 03/22/[address] [address]- Discharge Disposition: A-D/C Home Attending Physician: True [...] 12/31/22 14:22:00 EDT, Route to Pharmacy Electronically, [facility] #[id number], Partial fill upon patient request if the prescription is for a schedule II opi... Start Date: 12/31/22 Status: Ordered Aspirin Low Dose 81 mg oral delayed release tablet 1 tablet, By Mouth, Daily, # 30 tablet, 3 Refills, Maintenance, 08/17/22 15:43:00 EST, [email or web address] #[id number], 170, cm, 05/13/22 17:18:00 EDT, Height, 88.8, [...] 0.5 mg, Injection, IV Push Slowly, Once, STAT, 03/22/23 8:21:00 EDT, Stop date 03/22/23 8:21:00 EDT Start Date: 03/22/23 Stop Date: 03/22/23 Status: Completed famotidine 20 mg oral tablet 20 mg, 1, tablet, By Mouth, 2 times a day, # 180 tablet, Refills 0, Tot. Refills 0, Maintenance, 01/08/21 13:59:00 EDT, Route to Pharmacy Electronically, [facility] #[id number], Partial fill upon patient request if the prescription is for a sched... Start Date: 01/08/21 Status: Ordered Flonase 50 mcg/inh nasal spray 2 sprays, Nares, Both, 2 times a day, PRN Congestion, # 16 Gm, 0 Refills, Maintenance, 08/20/20 11:17:00 EST, [place], [email or web address] #[id number], Partial fill upon patient request if the prescriptionis for a schedule II opioid drug., 170, cm, ... Start Date: 08/20/20 Status: Ordered gabapentin 300 mg oral capsule 300 mg, 1, capsule, By Mouth, 2 times a day, # 60 capsule, Refills 4, Tot. Refills 4, Maintenance, 11/11/22 15:13:00 EST, Route to Pharmacy Electronically, [email or web address] #[id number], Partial fill upon patient request if the [...] 12/31/22 14:22:00 EDT, Route to Pharmacy Electronically, [email or web address] #[id number], Partial fill upon patient request if the prescription is for a sched... Start Date: 12/31/22 Stop Date: 12/26/23 Status: Ordered KlonoPIN 1 mg oral tablet 1 tablet = 1 mg, By Mouth, 2 times a day, dose is BID, # 60 tablet, 4 Refills, Maintenance, 03/10/23 15:33:00 EDT, [email or web address] #[id number], NO EARLY REFILLS, 170, cm, 02/01/23 7:48:00 [...] tablet, 0 Refills, Maintenance, 12/31/22 14:21:00 EDT, [email or web address] #[id number], Partial fill upon patient request if the prescription is for a schedule II opioid drug., 170, cm, 12/31/22 13:57:00 ED... Start Date: 12/31/22 Status: Ordered nitroglycerin 0.4 mg sublingual tablet 1 tablet, Sublingual, Every 5 minutes, PRN NEEDED FOR CHEST PAIN MAX 3 DOSES IN 15 MINUTES IF PAIN PERSISTS CALL 911, # 100 tablet, 3 Refills, Maintenance, 12/21/22 11:43:00 EDT, [email or web address] #[id number], 170, cm, 05/13/22 17:18:00 EDT, Height,... Start Date: 12/21/22 Status: Ordered ondansetron 8 mg oral tablet, disintegrating 1 tablet = 8 mg, By Mouth, 3 times a day, PRN Nausea & Vomiting, # 30 tablet, 0 Refills, Maintenance, 12/26/20 12:55:00 EDT, [email or web address] #[id number], Partial fill upon patient request if the [...] capsule, 4 Refills, Maintenance, 11/11/22 15:17:00 EST, [email or web address] #[id number], Partial fill upon patient request if the [...] 03/10/23 15:36:00 EDT, Route to Pharmacy Electronically, [email or web address] #[id number], Partial fill upon patient request if the [...] Refills, Soft Stop, 04/20/22 10:54:00 EDT, [place], [email or web address] #[id number], Partial fill upon patient... Start Date: 04/20/22 Status: Ordered spironolactone 25 mg oral tablet 25 mg, 1, tablet, By Mouth, Daily, # 90 tablet, Refills 3, Tot. Refills 3, Maintenance, 09/13/22 16:11:00 EST, Route to Pharmacy Electronically, [email or web address] #[id number], Partial fill upon patientrequest if the prescription is for a schedule II op... Start Date: 09/13/22 Stop Date: 09/08/23 Status: Ordered traZODone 300 mg oral tablet 1 tablet = 300 mg, By Mouth, Daily at bedtime, # 30 tablet, 4 Refills, Maintenance, 11/11/22 15:09:00 [facility] #[id number], Partial fill upon patient request if the [...] Range]: 1 2 3 Height 170 cm (03/22/23 8:33 AM) 170 cm (03/22/23 6:22 AM) 170 cm (03/22/23 5:39 AM) Weight 99.5 kg (03/22/23 8:33 AM) 99.5 kg (03/22/23 6:22 AM) 99.5 kg (03/22/23 5:39 AM) Oxygen Saturation [94-100 %] 96 % (03/22/23 8:33 AM) 97 % (03/22/23 6:22 AM) 95 % (03/22/23 5:39 AM) Pulse Rate [55-90 bpm] 65 bpm (03/22/23 8:33 AM) 55 bpm (03/22/23 6:22 AM) 56 bpm (03/22/23 5:39 AM) Body Mass Index [18.5-24.99 kg/m2] 34.43 kg/m2 *>HHI* (03/22/23 8:33 AM) 34.43 kg/m2 *>HHI* (03/22/23 6:22 AM) 34.43 kg/m2 *>HHI* (03/22/23 5:39 AM) Blood Pressure [90-138/55-84 mm Hg] 144/81mm Hg *H* (03/22/23 8:33 AM) 120/62mm Hg (03/22/23 6:22 AM) 121/61mm Hg (03/22/23 5:39 AM) Respiratory Rate [16-30 br/min] 16 br/min (03/22/23 8:33 AM) 16 br/min (03/22/23 8:28 AM) 20 br/min (03/22/23 6:22 AM) Temperature [96.8-100.4 DegF] 97.8 DegF (03/22/23 5:39 AM) 97.9 DegF (03/22/23 3:27 AM) Liters per Minute 0 L/min (03/22/23 6:22 AM) Mode of Delivery (Oxygen) Room air (03/22/23 8:33 AM) Room air (03/22/23 6:22 AM) Room air (03/22/23 5:39 AM) Blood pressure sites Arm, left (03/22/23 8:33 AM) Arm, left (03/22/23 6:22 AM) Arm, left (03/22/23 5:39 AM) Temperature Route Oral (03/22/23 5:39 AM) Oral (03/22/23 3:27 AM) Dry Weight 99.5 kg (03/22/23 8:33 AM) 99.5 kg (03/22/23 6:22 AM) 99.5 kg (03/22/23 5:39 AM) Social History Social History Type Response [...] Status Assigning Authority Unknown Unknown Unknown Unknown 10/20/21 Unknown Unknown Active Un known Patient Care team information Care Team Personnel Name: Daina Ibrahim RN Position: [facility] ED RN W/OE and Tasks Member Role: Primary Care Nurse Name: Madeline Baird RN Position: [facility] ED RN W/OE and Tasks Member Role: Primary Care Nurse Name: Teresa Carpio Position: [facility] RN Member Role: Primary Care Nurse Name: Inge Elizabeth RN Position: [facility] SN RN Member Role: Primary Care Nurse Name: Kelley Prasad RN Position: [facility] RN Member Role: Primary Care Nurse Name: Cindy Medeiros RN Position: [facility] RN Member Role: Primary Care Nurse Name: Linnette De La O RN Position: [facility] THEATRE PROGRAM DIRECTOR Member Role: Primary Care Nurse Name: Alina Castillo NP Position: [facility] Associate Professional Member Role: Primary Care Nurse Address: Address: [address] [place] [address]- [place] Name: Mary Anne Kilpatrick RN Position: [facility] MR W/ Merge Member Role: Primary Care Nurse Name: Agustín Faria MD Position: [facility] Outreach Member Role: PCP Address: Address: [address] [facility] [address] [place] [address]- [place] Name: Nicole Hernández RN Position: [facility] RN Member Role: Primary Care Nurse Name: Douglas Harris Position: [facility] Cardio/Pulm Mgr ([facility] Member Role: Primary Care Nurse Name: Lindsay Srinivasan CNM Position: [facility] Lithographic Artist Member Role: Primary Care Nurse Address: Address: [address] [place] [address] [place] [address]- [place] Name: Larissa Olson [place] Position: [facility] RN Member Role: Primary Care Nurse Name: Karen Roa RN Position: [facility] ED RN W/OE and Tasks Member Role: Primary Care Nurse Name: Mary Alice Stevens RN Position: [facility] RN Member Role: Primary Care Nurse Name: Beverly Grey Position: [facility] RN Member Role: Primary Care Nurse Name: Alexy Geronimo RN Position: [facility] RN Member Role: Primary Care Nurse Name: Raúl Rudolph DO Position: [facility] INTERNAL MEDICINE HOSPITALIST MD Member Role: Lifetime INTERNAL MEDICINE HOSPITALIST Physician Address: Address: [address] [facility] [place] [address]- [place] Name: Evelyn Haynes RN Position: [facility] RN Member Role: Primary Care Nurse Name: Crissy Metzger RN Position: [facility] RN Member Role: Primary Care Nurse Name: Elisa Gilbert RN Position: [facility] RN Member Role: Primary Care Nurse Name: Corina Solorio RN Position: [facility] Nurse Member Role: Primary Care Nurse Name: Shawnee Lane RN Position: [facility] ED RN W/OE and Tasks Member Role: Primary Care Nurse Name: Erna Douglass RN Position: [facility] SN RN Member Role: Primary Care Nurse Name: Keyana Ndiaye RN Position: [facility] Procurement Assistant Member Role: Primary Care Nurse Name: Yudy Trujilol RN Position: [facility] RN Member Role: Primary Care Nurse Name: Anabella Nicholson RN Position: [facility] Nurse Member Role: Primary Care Nurse Name: Ramona Ybarra RN Position: [facility] RN Member Role: Primary Care Nurse Address: Address: [address] [place] [address]- [place] Name: Nancy Gallagher RN Position: [facility] Procurement Assistant Member Role: Primary Care Nurse Name: Evelyn Allen RN Position: [facility] OB RN Member Role: Primary Care Nurse Name: Jackelin Watt RN Position: [facility] RN Member Role: Primary Care Nurse Name: Raymundo Elizabeth RN Position: [facility] SN RN Member Role: Primary Care Nurse Name: Opal Calderon RN Position: [facility] RN Member Role: Primary Care Nurse Name: Yadiel Warner RN Position: [facility] SN RN Member Role: Primary Care Nurse Name: Mariano Parikh Position: [facility] ED TA [facility] Member Role: Patient Care Provider Name: True Sanford MD Position: [facility] ED Medicine MD Member Role: Admitting Physician Address: Address: [address] [facility] [place] [address]- [place] Name: Gerri Fierro RN Position: [facility] ED RN W/OE and Tasks Member Role: Patient Care Provider Care Team Related Persons Name: BARTOLOME IBRAHIM Address: home [address] [place], [place] Name: GIANLUCA IBRAHIM Address: home [address] [place], [place] Name: ABBIE IBRAHIM Address: [address] [place], [place] Name: SIM CERDA Name: DIANE CERDA Address: home [address] [place] [address] Name: SOLO CORRIGAN Address: home [address] [place], [place] Name: SOLO FLORES Address: [address] [place], [place] Name: RAYMUNDO MAYFIELD Address: home [address] [place] [address]
[2024-01-27 11:57] VITALS: BP 146/99; PULSE 95; RESP 20; TEMP 36.1
--- NOTE | 2024-01-27 12:05 | PC.NURSE ---
pt sts gain 65 pound a year anesthessia
[2024-01-27] MEDS: Lactated Ringers 1,000 ML 100 ML IVCONT (12:19)
--- NOTE | 2024-01-27 12:19 | P.OPN-COLO_ITS ---
Colonoscopy Operative Note Operative Note Date of Service: 01/27/24 Narrative: Operative Information Procedure Description: EGD, Colonoscopy Indication: dysphagia, abdominal pain, abn bowel habits Anesthesia: MAC FLEXIBLE TRANSORAL UPPER GASTROINTESTINAL ENDOSCOPY AND COLONOSCOPY PROCEDURE NOTE UPPER ENDOSCOPY Consent: Indications for the procedure and potential complications of bleeding, perforation, reaction to medications and missed diagnosis were discussed with the patient and informed consent was obtained. Instrument: Olympus GIF H 190 J mid size upper endoscope Monitoring: Vital signs and clinical assessment, continuous EKG monitoring, Pulse oximetry, Carbon Dioxide monitoring and blood pressure monitoring were done throughout the procedure. Procedure: The patient was placed in the left lateral decubitis position and pre-procedure medications were administered and a bite block was placed. The endoscope was inserted into the mouth and advanced under direct vision to the third part of duodenum. A careful inspection was made as the upper endoscope was withdrawn including a retroflexed examination of the proximal stomach; Findings and interventions are described below. Findings: Larynx:normal Esophagus: GE junction at 35 cm, diaphragm hiatus at 37 cm, 2 cm sliding hiatal hernia noted, balloon dilation at UES and LES to 19 mm, no tears seen, bx taken from GEJ, distal and proximal esophagus Stomach: Normal mucosa. Biopsies were obtained. Grade 2 flap valve on retroflexed examination of the cardia. Duodenum: patchy erythema and edematous mucosa, bx taken Intervention: Biopsies as noted above, COLONOSCOPY Instrument: Olympus variable stiffness ADULT scope 190L Colonoscopy Monitoring: Vital signs and clinical assessment, continuous EKG monitoring, Pulse oximetry, Carbon Dioxide monitoring and blood pressure monitoring were done throughout the procedure. Colon withdrawal time was 8 minutes. Procedure: The patient was placed in the left lateral decubitis position and pre-procedure medications were administered. After a digital rectal examination of the ano-rectum, the video colonoscope was inserted into the rectum and advanced through the colon to the cecum/TI. The colonoscope was slowly withdrawn in a retrograde panoramic fashion and the colon mucosa was carefully examined including a retroflexed view of the rectum. Findings and interventions are described below. Procedure Difficulty:moderate Findings: Terminal Ileum-normal, random bx taken random bx taken from right and left colon inseparate jars Cecum:normal Ascending Colon: normal Transverse Colon -normal Descending Colon:normal Sigmoid Colon: normal, few tight angles noted Rectum: Retroflexion with small internal hemorrhoids, grade I Anorectum - normal Colon preparation: [place] Bowel Preparation Scale Right colon; 1-2 Transverse colon: 2 Left colon; 2 (0 = Unprepared colon segment with mucosa not seen due to solid stool that cannot be cleared. 1 = Portion of mucosa of the colon segment seen, but other areas of the colon segment not well seen due to staining, residual stool and/or opaque liquid. 2 = Minor amount of residual staining, small fragments of stool and/or opaque liquid, but mucosa of colon segment seen well. 3 = Entire mucosa of colon segment seen well with no residual staining, small fragments of stool or opaque liquid) Impression and Post Procedure Diagnosis: Endoscopy Findings: duodenitis hiatal hernia Colonoscopy Findings: internal hemorrhoids Plan: Await Pathology results Repeat Colonoscopy in 5 years for screening and due to fair prep in right colon or earlier if clinically indicated High fiber diet leaflet avoid straining at stool, epsom salts and sitz bath, anusol supps or cream GERd precautions Above findings were reviewed with the patient and relevant handouts were provided if indicated.
[2024-01-27] MEDS: diphenhydrAMINE HCL 50 MG/ML VIAL IVPUSH (12:20)
[2024-01-27] MEDS: methylPREDNISolone Sod Succ 125 MG/2 ML VIAL IVPUSH (12:20)
[2024-01-27 13:13] VITALS: BP 92/54; PULSE 95; RESP 16; TEMP 36.1; O2SAT 94
[2024-01-27 13:28] VITALS: BP 106/63; PULSE 85; RESP 18; TEMP 36.8; O2SAT 95
== END 2024-01-27 13:58 | disposition home or self-care (01) ==
PROVIDERS: Nurse Practitioner; PCP Internal Medicine; Visit Provider Internal Medicine Gastroenterology
PROC: (CPT 45380; principal; 2024-01-27 13:30)
DX: R19.4 Change in bowel habit (principal); R10.84 Generalized abdominal pain; R13.10 Dysphagia, unspecified; K64.0 First degree hemorrhoids; K29.80 Duodenitis without bleeding; K21.9 Gastro-esophageal reflux disease without esophagitis; K44.9 Diaphragmatic hernia without obstruction or gangrene; K59.04 Chronic idiopathic constipation; K20.90 Esophagitis, unspecified without bleeding; E27.1 Primary adrenocortical insufficiency; I25.2 Old myocardial infarction; I25.10 Atherosclerotic heart disease of native coronary artery without angina pectoris; Z95.0 Presence of cardiac pacemaker; F32.A Depression, unspecified; D47.02 Systemic mastocytosis; I10 Essential (primary) hypertension; E78.00 Pure hypercholesterolemia, unspecified; D01.7 Carcinoma in situ of other specified digestive organs; Z79.82 Long term (current) use of aspirin; Z79.899 Other long term (current) drug therapy; Z88.8 Allergy status to other drugs, medicaments and biological substances; Z98.890 Other specified postprocedural states; Z87.891 Personal history of nicotine dependence
CPT/HCPCS: 45380; 43249; 43239; 36415; 80048; 83880; 85027; 88305; 88313; 88341; 88342; 93005; C1726; J1200; J1596; J2704; J2919

== ENCOUNTER → 2024-01-27 11:19 | Outpatient (BNV) | payer MEDICARE, MEDICAID, SELFPAY | PROVIDERS: PCP Internal Medicine; Visit Provider Internal Medicine Gastroenterology | DX: R19.4 Change in bowel habit (principal); R10.9 Unspecified abdominal pain; K64.0 First degree hemorrhoids; R13.10 Dysphagia, unspecified; K29.80 Duodenitis without bleeding | CPT/HCPCS: 43239; 43249; 45380 ==

== ENCOUNTER 2024-02-04 09:14 | Outpatient (AMB) | payer MEDICARE, MEDICAID, SELFPAY ==
--- NOTE | 2024-02-04 09:14 | MHC.OFFVIS ---
Intake Visit Reasons: S/P Double; Dr. Montalvo Intake Note: Mary Alice presents as a telehealth today to go over results to her EGD and COLO. CC: No concerns today just for results. Allergies droperidol Allergy (Severe, Verified 02/04/24 09:15) Confusion, twitching haloperidol [From Haldol] Allergy (Severe, Verified 02/04/24 09:15) suicidal prochlorperazine [From COMPAZINE] Allergy (Severe, Verified 02/04/24 09:15) HIVES, panic attack propranolol [PROPRANOLOL] Allergy (Severe, Verified 02/04/24 09:15) RASH rivaroxaban [From Xarelto] Allergy (Severe, Verified 02/04/24 09:15) Hives, rash, N/V cefprozil [From CEFZIL] Allergy (Intermediate, Verified 02/04/24 09:15) HIVES escitalopram [From LEXAPRO] Allergy (Intermediate, Verified 02/04/24 09:15) N/V, palpatatuions sertraline [From ZOLOFT] Allergy (Intermediate, Verified 02/04/24 09:15) NAUSEA & VOMITING, palpatations metoclopramide [From REGLAN] Adverse Reaction (Severe, Verified 02/04/24 09:15) AGITATION, N/V, palpatations phenelzine [From NARDIL] Adverse Reaction (Severe, Verified 02/04/24 09:15) NAUSEA & VOMITING, rash, worsening headache HPI HPI S/P Double; Dr. Montalvo: Details: 43 y/o f w/ back pain, appendectomy, hysterectomy, [place] fundoplication 2011, marilyn disease, cholecystectomy, depression, endometrioma called for f/u RECAP:from prior notes and visits [facility] for multiple issues, please see my scanned notes in ecw EGD/colonoscopy10/2015- erosive gastritis, mild ileal inflammation MRCP: 11/2015- normal, small IPMN doppler u/s 11/2015- normal ERCP w/ sphincterotomy for possible SOD 07/2016 EGD/colonoscopy 2017- tubular adenoma, chemical gastritis, normal duodenum MRe: normal small bowel, ovarian remnant syndrome, she had raised urine prostaglandins u/s 01/2019- 9 mm CBD, liver cyst, nothing acute GES repeated- 02/2019- normal She had an admission to [facility] 12/2019, with hematemesis and vomiting, diarrhea, covid neg, had EGD and colonoscopy--noted to have gastritis, colon looked nml Other admissions to [place] [facility] and [facility] this year, [facility] latest admission over the Summer she was d/c ed from [facility] with nausea, vomiting, low K she is going to be seeing an EP speicalist for her heart she was unable to complete GES during her admission She had recent admission to [facility] for constipation, strep bactermia--ECHO was negative for vegetations she had upper GI series at [facility] -esophageal dysmotility-pooling of contrast at [facility] EGD/Colonoscopy:01/27/24 Endoscopy Findings: duodenitis hiatal hernia balloon dilation 19 mm Colonoscopy Findings: internal hemorrhoids Path: amyloid neg, mast cell numbers were low INTERIM: she has noted sharp stabbing pain last few days LUQ can be worse with eating or drinking fluids she has noted constipation, not been for 5 days heartburn and swallowing is better, she thinks the balloon dilation helped she has tried motegrity -not seemed to help last few days she is taking protonix 40 mg bid, and pepcid BID she has chronic back pain as well denies urine symptoms EXAM: GENERAL: The patient is well developed and nontoxic. Assessments 1. Chronic GERD - stable 2. IPMN 3. constipation might be causing her current pain or referred pain from back Plan: 1/ KUB--fax order to [place] 2/ cont motegrity, try fleets enema once a day till get results 3/ if ongoing sx, maybe image spine [facility] Medical History Hx MRSA infection Umbilical hernia Gastritis Gastroparesis Pernicious anemia Hx of bacteremia (~11/2023) SOB (shortness of breath) Chest pain MDD (major depressive disorder) Cardiac pacemaker Allyssa's syndrome Renal calculi PTSD (post-traumatic stress disorder) Ocular migraine Marilyn's disease Esophagitis COVID-19 Obesity Lupus Mast cell disease History of psychiatric disorder SVT (supraventricular tachycardia) Pancreatitis Kidney stones Elevated cholesterol HTN (hypertension) Peptic ulcer DVT (deep venous thrombosis) Anxiety Back pain Myocardial infarction CAD (coronary artery disease) Asthma Anemia Sick sinus syndrome Depression GERD (gastroesophageal reflux disease) Sphincter of Oddi dysfunction Chronic idiopathic constipation Chronic nausea Secondary adrenal insufficiency Surgical History History of cardiac cath Hx of exploratory laparotomy H/O unilateral oophorectomy History of ankle surgery Hx of tonsillectomy History of back surgery (~2007) S/P hysterectomy Hx of cholecystectomy Hx of appendectomy S/P placement of cardiac pacemaker Status post [place] fundoplication History of sphincterotomy of sphincter of Oddi History of kidney surgery H/O colonoscopy H/O endoscopy Family History Mother HTN (hypertension) Heart disease Kidney disease Cancer Father HTN (hypertension) Maternal Grandfather Cancer Kidney disease Diabetes Liver disease Paternal Grandfather Cancer Paternal Grandmother Colon cancer Social History Household Members: Significant Other and Children Are you a primary health care marketing manager to a significant other at home: No Do you presently have visiting nurse or other home services: No Alcohol intake: current Alcohol intake frequency: holidays/special occasions only Patient Tobacco Use Status: Former Tobacco user Quit Date: 08/2022 Tobacco use type: Cigarette Cigarettes Per Day: 10 e-Cigarette/Vaping Use: Currently Using Telehealth Telehealth Telehealth Platform: [employer] Location of provider rendering services: practice address Location of patient: address on file Patient Identification confirmed using: Name, : Yes Telehealth method: video Patient verbally consented to treatment: Yes Patient verbally consented to billing insurance company: Yes Patient informed of any privacy concerns related to visit: Yes Minutes spent on Phone/Video with Pt.: 7 Assessment & Plan Assessment & Plan (1) Altered bowel habits: Code(s): R19.4 - Change in bowel habit Category: Medical Plan: see above Orders: Orders XR KUB Today R19.4 - Change in bowel habit Medications: New sodium phosphates 19-7 gram/118 mL (Fleet Enema) 118 mL DE BEDTIME PRN 532 mL 0RF constipation Discontinued polyethylene glycol 3350 (Miralax) Take as directed by mouth the day before your procedure. Discontinued Reason: Doctor's Order 238 grams PO ONCE 1 day 238 grams 0RF [id number] 140-9-5.2 gram (Plenvu) Discontinued Reason: Doctor's Order PO 3 ea 0RF polyethylene glycol 3350 (Miralax) Take as directed by mouth the day before your procedure. Discontinued Reason: Doctor's Order 238 grams PO ONCE 1 day 238 grams 0RF Coding Level of Care Code Tele Est Pt Level 3 (52072) Diagnoses Altered bowel habits R19.4
--- OUTSIDE RECORDS SUMMARY | 2024-02-04 09:17 | XMS_ITS | Continuity of Care Document ---
Author Organization [facility] Address [address] [place] [address]- Care Team Providers Care Fur Trimmer Name Role Phone Maranda WILCOX, Silvio Martinez Primary Care Physician Encounter [facility] Date(s): 08/28/20 - 09/27/20 [facility] [address] [place] [address]- Allergies, Adverse Reactions, Alerts Substance Reaction Severity [...] capsule, 1 Refills, Maintenance, 10/21/19 11:17:00 EST, [facility] #[id number], 1 capsule By Mouth 3 times a [...] 04/09/21 14:58:00 EDT, 04/09/20 14:57:00 EDT, Tablet, [facility] #[id number], 169, cm, 04/05/20 12:55:00 EDT, Height, 85, [...] tablet, 3 Refills, Maintenance, 05/28/20 11:56:00 EDT, [facility] #[id number], 170, cm, 05/27/20 0:11:00 EDT, Height,90.4, kg, [...] Acute 06/08/21 12:08:00 EDT, 05/03/21 10:04:00 EDT, [facility]/pharmacy #[id number], 169, cm, 04/15/20 [...] 0 Refills, Maintenance, 06/18/20 16:48:00 EDT, Tablet, [facility] #[id number], 170, cm, 06/18/20 15:14:00 EDT, Height, 90.4, [...] 11 Refills, Soft Stop, 07/10/20 6:01:00 EDT, [facility] #[id number], 170, cm, 07/10/20 2:42:00 EDT, Height, 90.5, kg, 07/09/20 23:20:00 EDT, Dry Weight Start Date: 07/10/20 Status: Ordered Solu-CORTEF 100 mg preservative-free injection = 100 mg, Intramuscular, Once, prn adrenal crisis, # 5 each, 11 Refills, Soft Stop, 05/03/20 16:07:00 EDT, [facility] #[id number], 169, cm, 04/15/20 17:38:00 EDT, Height, 85, [...]
--- OUTSIDE RECORDS SUMMARY | 2024-02-04 09:27 | XMS_ITS | Continuity of Care Document ---
Author Organization [facility] Address [address] [place] [address]- Care Team Providers Care Pipeman Name Role Phone Dash WILCOX ([place]), Paola Anderson Primary Care Physician Encounter [facility] Date(s): 09/06/23 - 10/06/[address] [address]- Attending Physician: Maximo Cano Admitting Physician: AdmtrMaximo Referring Physician: AdmtrMaximo Allergies, Adverse Reactions, Alerts [...] 0 Refills, Maintenance, 07/15/23 11:42:00 EDT, Tablet, [facility] #[id number], Partial fill upon patient request if the [...] 4 Refills, Maintenance, 08/10/23 14:21:00 EST, Tablet, [facility] #[id number], Partial fill upon patient request if the prescription is fora schedule II opioid drug., 170, cm, 08/05/23 3:21:... Start Date: 08/10/23 Stop Date: 01/07/24 Status: Ordered Metoprolol Tartrate 100 mg oral tablet 1 tablet, By Mouth, 2 times a day, # 60 tablet, 0 Refills, Maintenance, 09/10/23 16:43:00 EST, [facility] #[id number], 170, cm, 08/27/23 7:32:00 EST, Height, 99, [...] 0 Refills, Maintenance, 05/13/23 10:33:00 EDT, Tablet, [facility] #[id number], Partial fill upon patient request if the prescription is for a schedule II opioid drug., 1... Start Date: 05/13/23 Stop Date: 05/16/23 Status: Ordered potassium chloride 10 mEq oral tablet, extended release 2 tablet = 20 mEq, By Mouth, Daily, # 14 tablet, 0 Refills, Soft Stop, 08/27/23 8:49:00 EST, ER Tablet, [facility] #[id number], Partial fill upon patient request if the [...] capsule, 4 Refills, Maintenance, 08/10/23 14:14:00 EST, [facility] #[id number], Partial fill upon patient request if the [...] Refills, Soft Stop, 05/27/23 14:16:00 EDT, Powder, [facility] #[id number], Partial fill upon patient... Start Date: 05/27/23 Status: Ordered spironolactone 25 mg oral tablet 1, tablet, By Mouth, Daily, # 30 tablet, Refills 0, Maintenance, 09/10/23 16:43:00 EST, Route to Pharmacy Electronically, [facility] #[id number], 170, cm, 08/27/23 7:32:00 EST, Height, 99, kg, 08/18/23 9:13:00 EST, Dry Weight Start Date: 09/10/23 Status: Ordered Wellbutrin SR 100 mg/12 hours oral tablet, extended release 1 tablet = 100 mg, By Mouth, Daily, # 30 tablet, 4 Refills, Maintenance, 08/10/23 14:26:00 EST, [facility] #[id number], Partial fill upon patient request if the [...] information Care Team Personnel Name: Dash WILCOX (IA) , Paola Anderson Position: [facility] Outreach Member Role: PCP Address: Address: [address] [place] [id number] [place] Name: Daina Ibrahim RN Position: [facility] ED RN W/OE and Tasks Member Role: Primary Care Nurse Name: Madeline Baird RN Position: [facility] ED RN W/OE and Tasks Member Role: Primary Care Nurse Name: Teresa Carpio Position: [facility] RN Member Role: Primary Care Nurse Name: Inge Elizabeth RN Position: [facility] SN RN Member Role: Primary Care Nurse Name: Kelley Prasad RN Position: [facility] ED RN W/OE and Tasks Member Role: Primary Care Nurse Name: Cindy Medeiros RN Position: [facility] RN Member Role: Primary Care Nurse Name: Linnette De La O RN Position: [facility] CERTIFIED ATHLETIC TRAINER Member Role: Primary Care Nurse Name: Alina Castillo NP Position: [facility] Associate Professional Member Role: Primary Care Nurse Address: Address: [address] [place] [address]- [place] Name: Mary Anne Kilpatrick RN Position: [facility] MR W/ Merge Member Role: Primary Care Nurse Name: Nicole Hernández RN Position: [facility] RN Member Role: Primary Care Nurse Name: Lindsay Srinivasan CNM Position: [facility] Schedule Clerk Member Role: Primary Care Nurse Address: Address: [address] [place] [address]- Name: Kiana Sabillon RN Position: [facility] RN Member Role: Primary Care Nurse Name: Larissa Olson [place] Position: [facility] RN Member Role: Primary Care Nurse Name: Karen Roa RN Position: [facility] ED RN W/OE and Tasks Member Role: Primary Care Nurse Name: Mary Alice Stevens RN Position: [facility] RN Member Role: Primary Care Nurse Name: Beverly Grey Position: [facility] RN Member Role: Primary Care Nurse Name: Alexy Geronimo RN Position: [facility] ED RN W/OE and Tasks Member Role: Primary Care Nurse Name: Raúl Rudolph DO Position: [facility] SOLUTION MAKE UP OPERATOR MD Member Role: Lifetime SOLUTION MAKE UP OPERATOR Physician Address: Address: [address] [place] [id number]- Name: Evelyn Haynes RN Position: [facility] RN Member Role: Primary Care Nurse Name: Crissy Metzger RN Position: [facility] RN Member Role: Primary Care Nurse Name: Elisa Gilbert RN Position: [facility] RN Member Role: Primary Care Nurse Name: Corina Solorio RN Position: [facility] Nurse Member Role: Primary Care Nurse Name: Shawnee Lane RN Position: [facility] ED RN W/OE and Tasks Member Role: Primary Care Nurse Name: Ana Estrada RN Position: [facility] RN Member Role: Primary Care Nurse Name: Erna Douglass RN Position: [facility] RN Member Role: Primary Care Nurse Name: Keyana Ndiaye RN Position: [facility] [place] Supervisor Member Role: Primary Care Nurse Name: Anabella Nicholson RN Position: [facility] AMB Nurse Member Role: Primary Care Nurse Name: Brenda Tomas RN Position: [facility] Outreach Member Role: Primary Care Nurse Name: Ramona Ybarra RN Position: [facility] RN Member Role: Primary Care Nurse Address: Address: [address] [place] [phone]- Name: Nancy Gallagher RN Position: [facility] [place] Supervisor Member Role: Primary Care Nurse Name: Evelyn Allen RN Position: [facility] OB RN Member Role: Primary Care Nurse Name: Jackelin Watt RN Position: [facility] RN Member Role: Primary Care Nurse Name: Raymundo Elizabeth RN Position: [facility] SN RN Member Role: Primary Care Nurse Name: Opal Calderon RN Position: [facility] RN Member Role: Primary Care Nurse Name: Yadiel Warner RN Position: [facility] SN RN Member Role: Primary Care Nurse Care Team Related Persons Name: BARTOLOME IBRAHIM Address: home [address] [place], [place] Name: GIANLUCA IBRAHIM Address: [address] Name: ABBIE IBRAHIM Address: home [address] [place], [place] Name: SIM CERDA Name: DIANE CERDA Address: [address] [address] Name: SOLO CORRIGAN Address: [address] Name: SOLO FLORES Address: [address] Name: RAYMUNDO MAYFIELD Address: home [address] [place] [address]
--- OUTSIDE RECORDS SUMMARY | 2024-02-04 09:27 | XMS_ITS | Continuity of Care Document ---
Author Organization [facility] Address [address] [place] [address]- Care Team Providers Care Logistics Lead Name Role Phone Bienvenido WILCOX, Agustín Joaquin Primary Care Phys[id number] Date(s): 10/11/19 - 11/17/19 [facility] [address] [place] [address]- [facility] Attending Physician: Renan WILCOX, Sourav Anderson Referring Physician: Not on Staff, Referring MD [...] Stop 02/18/20 11:16:00EDT, 10/21/19 11:16:00 EST, Tablet, [facility] #[id number], 170, cm, 10/20/19 13:48:00 EST, Height, 92.3, kg, 10/15/19 6:38:00 EST, Dry Weight Start Date: 10/21/19 Stop Date: 02/18/20 Status: Ordered atorvastatin 20 mg oral tablet 1 tablet = 20 mg, By Mouth, Daily, # 90 tablet, 1 Refills, Maintenance, 10/21/19 11:16:00 EST, Tablet, [facility] #[id number], 170, cm, 10/20/19 13:48:00 EST, Height, 92.3, [...] 02/21/19 8:58:39 EDT, Route to Pharmacy Electronically, [id number], [facility] 3 Start Date: 02/21/19 Stop Date: 04/22/19 Status: Ordered Creon 36,000 units oral delayed release capsule 1 capsule, By Mouth, 3 times a day, with each meal and snack, # 270 capsule, 1 Refills, Maintenance, 10/21/19 11:17:00 EST, [facility] #[id number], 1 capsule By Mouth 3 times a [...] 08/24/19 9:15:39 EST, Route to Pharmacy Electronically, [id number], [facility] #[id number], 170, cm, 08/24/19 8:38:44 EST, H... Start [...] 0 Refills, Maintenance, 09/28/19 0:43:00 EST, Tablet, [facility] #[id number], 171, cm, 09/27/19 22:45:00 EST, Height, 92.2, [...] 0 Refills, Soft Stop, 09/28/19 0:51:00 EST, [facility][id number], 171, cm, 09/27/19 22:45:00 EST, Height, 92.2, [...] 02/21/19 8:59:46 EDT, Route to Pharmacy Electronically, [id number], [facility] Start Date: 02/21/19 Stop [...]
--- OUTSIDE RECORDS SUMMARY | 2024-02-04 09:28 | XMS_ITS | Continuity of Care Document ---
Author Organization [facility] Address [address] [place] [address]- Care Team Providers Care Measurer Machine Name Role Phone Maranda WILCOX, Silvio Martinez Primary Care Physician Encounter [facility] Date(s): 05/28/20 - 06/27/20 [facility] [address] [place] [address]- [facility] Allergies, Adverse Reactions, Alerts Substance [...] mL, Refills 11, Tot. Refills 11, Maintenance, [facility]: [id number], 05/08/20 16:20:00 EDT, Supply, 169, cm, 04/15/20 [...] capsule, 1 Refills, Maintenance, 10/21/19 11:17:00 EST, [facility] #[id number], 1 capsule By Mouth 3 times a [...] 04/09/21 14:58:00 EDT, 04/09/20 14:57:00 EDT, Tablet, [facility] #[id number], 169, cm, 04/05/20 12:55:00 EDT, Height, 85, [...] tablet, 3 Refills, Maintenance, 05/28/20 11:56:00 EDT, [facility] #[id number], 170, cm, 05/27/20 0:11:00 EDT, Height,90.4, kg, [...] Acute 04/30/21 16:58:00 EDT, 04/30/20 16:57:00 EDT, [facility] #[id number], 169, cm, 04/15/20 17:38:00 EDT, Height, 85, [...] Refills, Acute 05/03/21 10:04:00EDT, 05/03/20 10:03:00 EDT, [facility] #[id number], 169, cm, 04/15/20 17:38:00 EDT, Height, 85, kg, 03/15/20 2:33:00 EDT, Dry Weight Start Date: 05/03/20 Stop Date: 05/03/21 Status: Ordered methylprednisolone 2 gm injectable powder for injection See Instructions, inject 4 grams IM for adrenal crisis, # 48 Gm, 3 Refills, Acute 05/03/21 11:58:00EDT, 05/03/21 10:04:00 EDT, [facility], 169, cm, 04/15/20 17:38:00 [...] 0 Refills, Maintenance, 06/18/20 16:48:00 EDT, Tablet, [facility] #[id number], 170, cm, 06/18/20 15:14:00 EDT, Height, 90.4, [...] 11 Refills, Soft Stop, 05/03/20 16:07:00 EDT, [facility] #[id number], 169, cm, 04/15/20 17:38:00 EDT, Height, 85, [...] Refills, Maintenance, 12/05/19 20:49:00 EDT, DIS Tablet, [email or web address] #[id number], 170, cm, 12/05/19 19:19:00 EDT, Height, 88.7, [...]
== END 2024-02-04 10:55 | disposition home or self-care (01) ==
LOC: HO.HGI 09:14
PROVIDERS: PCP Internal Medicine; Visit Provider Internal Medicine Gastroenterology
DX: R19.4 Change in bowel habit (principal)
CPT/HCPCS: 99213

== ENCOUNTER → 2024-02-04 09:14 | Outpatient (BNVA) | payer MEDICARE, MEDICAID, SELFPAY | PROVIDERS: PCP Internal Medicine; Visit Provider Internal Medicine Gastroenterology ==

== ENCOUNTER → 2025-01-01 10:25 | Outpatient (BNVA) | payer MEDICARE, MEDICAID, SELFPAY | PROVIDERS: PCP Internal Medicine; Visit Provider Internal Medicine Gastroenterology ==